=== PATIENT | male | born 1960 | race African-American/Black ===

== ENCOUNTER 2016-05-31 08:21 | Observation (INO) | payer OTHER ==
[2016-05-31] MEDS ORDERED: INSULIN REGULAR 100 UNIT/ML VIAL IV STA (08:34)
[2016-05-31] MEDS ORDERED: SODIUM CHLORIDE 0.9% 500 ML IV STA (08:35)
[2016-05-31] MEDS ORDERED: MAG HYDROX/AL HYDROX/SIMETH 30 ML, HYOSCYAMINE ELIXIR 10 ML, CIMETIDINE HCL 300 MG, LID... PO STA ×4 (08:54)
[2016-05-31] MEDS ORDERED: METOCLOPRAMIDE 5 MG/ML 2 ML VIAL IVP STA ×2 (08:59→12:10)
--- NOTE | 2016-05-31 08:59 | ED ---
Recheck HPI - General Chief Complaint: Recheck/Abnormal Lab/Rx Stated Complaint: hyperglycemia Time Seen by Provider: 05/31/16 08:33 Source: EMS, RN notes reviewed Mode of arrival: EMS Limitations: no limitations - History of Present Illness Initial Comments: This patient is a 56-year-old man who presents with a number of complaints, that basically started with him not being able to obtain his diabetes medication. He states he went to the pharmacy to obtain refills and was told that he could not have these before they were approved by his retirement actuary. Patient states that then starting Friday he began having a couple of episodes of vomiting a day, and this was followed by some burning epigastric pain. He also complains of polyuria and polydipsia. He presents to have his blood sugar addressed. MD Complaint: other (High blood sugar) Onset/Timin -: days(s) Associated Symptoms: nausea, abdominal pain - Related Data Home Medications Medication Instructions Recorded Confirmed Dicyclomine [Bentyl] 20 mg PO QID PRN 03/08/16 05/31/16 Insulin Aspart [NovoLOG] See Protocol SQ AC-TID 03/20/16 05/31/16 Famotidine [Pepcid] 20 mg PO DAILY 04/25/16 05/31/16 Lisinopril [Zestril] 20 mg PO DAILY 04/25/16 05/31/16 Previous Rx's Medication Instructions Recorded Insulin Glargine [Lantus] 25 unit SQ QAM #0 11/06/15 Omeprazole [PriLOSEC] 40 mg PO AC-BRKFST #14 capsule. 03/26/16 Allergies Allergy/AdvReac Type Severity Reaction Status Date / Time No Known Allergies Allergy Verified 05/31/16 09:20 Review of Systems ROS Statement: Those systems with pertinent positive or pertinent negative responses have been documented in the HPI. ROS Other: All systems not noted in ROS Statement are negative. Constitutional: Denies: fever, chills, weakness Respiratory: Denies: cough, dyspnea Cardiovascular: Denies: chest pain, palpitations, orthopnea, edema, syncope Endocrine: Reports: fatigue, polydipsia, polyuria Gastrointestinal: Reports: as per HPI, abdominal pain, nausea, vomiting. Denies : diarrhea, constipation, hematemesis, melena, hematochezia Genitourinary: Denies: dysuria, hematuria Musculoskeletal: Denies: back pain Skin: Denies: rash Neurological: Denies: headache, weakness, numbness Past Medical History Past Medical History: Heart Failure, Diabetes Mellitus, Hypertension, Pneumonia , Rheumatoid Arthritis (RA) Additional Past Medical History / Comment(s): IDDM type I poorly controlled, diabetic gastroparesis, bilateral feet peripheral neuropathy, blood behind both eyes, peptic ulcer disease/duodenal ulcer/gastritis with erosions, previous hospitalization for pulmonary edema and bilateral pleural effusion and subsequent evaluation showed a preserved LV function with an ejection fraction of around 50%, normocytic chronic anemia, rheumatoid arthritis, DJD, chronic back pain, osteoarthritis-generalized, eczema, psoriasis, ear infections, hx of cocaine abuse and alcohol abuse. History of Any Multi-Drug Resistant Organisms: MRSA Date of last positivie culture/infection: 2007 MDRO Source:: pustual/boil on back of neck Past Surgical History: Adenoidectomy, Tonsillectomy Additional Past Surgical History / Comment(s): colonoscopy 2008, EGD, pt stated" lt great toe amp, and part of 2nd toe". Past Anesthesia/Blood Transfusion Reactions: No Reported Reaction Past Psychological History: No Psychological Hx Reported Additional Psychological History / Comment(s): PT STATED CURRENTLY homeless stated"[facility] . He is independent. He uses no assistive device. Smoking Status: Never smoker Past Alcohol Use History: Heavy Additional Past Alcohol Use History / Comment(s): PT STATED DRINKS OCC BUT LESS THAN 14 PER WEEK Past Drug Use History: None Reported Additional Drug Use History / Comment(s): PT DENIES ANY DRUG USE IN AT LEAST 7- 8 YEARS. - Past Family History Father Family Medical History: Diabetes Mellitus, Hypertension Additional Family Medical History / Comment(s): father 2 months ago Mother Additional Family Medical History / Comment(s): pyschiatric issues. She is 76 yrs old. General Exam Limitations: no limitations General appearance: alert, in no apparent distress Head exam: Present: atraumatic, normocephalic Eye exam: Present: normal appearance. Absent: scleral icterus, conjunctival injection ENT exam: Present: mucous membranes dry Neck exam: Present: normal inspection, full ROM Respiratory exam: Present: normal lung sounds bilaterally. Absent: respiratory distress, wheezes, rales, rhonchi, stridor Cardiovascular Exam: Present: regular rate, normal rhythm, normal heart sounds. Absent: systolic murmur, diastolic murmur, rubs, gallop GI/Abdominal exam: Present: soft, tenderness (Mild epigastric tenderness). Absent: distended, guarding, rebound, rigid, mass, pulsatile mass, hernia Extremities exam: Present: normal inspection, normal capillary refill. Absent: pedal edema, calf tenderness Back exam: Present: normal inspection. Absent: CVA tenderness (R), CVA tenderness (L) Neurological exam: Present: alert Skin exam: Present: warm, dry, intact, normal color. Absent: rash, cyanosis, diaphoretic, erythema, petechiae, pallor, mottled Course Vital Signs 05/31/16 05/31/16 05/31/16 08:27 13:20 14:48 Temperature 97.7 F Pulse Rate 97 90 86 Respiratory 18 18 18 Rate Blood Pressure 173/88 177/75 137/60 O2 Sat by Pulse 100 99 100 Oximetry 05/31/16 05/31/16 05/31/16 15:47 16:30 16:45 Temperature Pulse Rate 98 95 98 Respiratory 24 22 18 Rate Blood Pressure 209/100 196/91 199/98 O2 Sat by Pulse 100 100 100 Oximetry 05/31/16 17:15 Temperature 98.0 F Pulse Rate 99 Respiratory 18 Rate Blood Pressure 197/95 O2 Sat by Pulse 100 Oximetry Procedures - Central Line Placement Right SC Consent Obtained: verbal consent, emergent situation Time Out Performed: Yes Patient Placed on Monitor/Pulse Ox: Yes Prep: mask, gown, gloves Central Line Prep: Chlorhexidine scrub, sterile drapes applied Local Anesthesia Used: Lidocaine 1% Central Line Lumen Inserted: triple Bloods Obtained for Lab: Yes Central Line Position: good blood return, all ports aspirated, flushed, capped, sutured in place with 2-0 silk Dressing Applied: Tegaderm Post Procedure X-Ray: tip of catheter in good position Patient Tolerated Procedure: well, no complications Complications: none Medical Decision Making - Lab Data Result diagrams: 05/31/16 09:50 05/31/16 14:26 Lab Results 05/31/16 05/31/16 05/31/16 Range/Units 08:31 09:50 09:50 WBC 7.8 (3.8-10.6) k/uL RBC 4.90 (4.30-5.90) m/uL Hgb 15.1 (13.0-17.5) gm/dL Hct 47.0 (39.0-53.0) % MCV 96.0 (80.0-100.0) fL MCH 30.8 (25.0-35.0) pg MCHC 32.0 (31.0-37.0) g/dL RDW 13.9 (11.5-15.5) % Plt Count 205 (150-450) k/uL Neutrophils % 72 % Lymphocytes % 19 % Monocytes % 6 % Eosinophils % 1 % Basophils % 1 % Neutrophils # 5.6 (1.3-7.7) k/uL Lymphocytes # 1.4 (1.0-4.8) k/uL Monocytes # 0.4 (0-1.0) k/uL Eosinophils # 0.1 (0-0.7) k/uL Basophils # 0.1 (0-0.2) k/uL Sodium (137-145) mmol/L Potassium (3.5-5.1) mmol/L Chloride (98-107) mmol/L Carbon Dioxide (22-30) mmol/L Anion Gap mmol/L BUN (9-20) mg/dL Creatinine (0.66-1.25) mg/dL Est GFR (MDRD) Af Amer (>60 ml/min/1.73 sqM) Est GFR (MDRD) Non-Af (>60 ml/min/1.73 sqM) Glucose (74-99) mg/dL POC Glucose (mg/dL) 480 H (75-99) mg/dL POC Glu Nursing Informatics Analyst ID Harry Xie Calcium (8.4-10.2) mg/dL Urine Color Urine Appearance (Clear) Urine pH (5.0-8.0) Ur Specific [place] (1.001-1.035) Urine Protein (Negative) Urine Glucose (UA) (Negative) Urine Ketones (Negative) Urine Blood (Negative) Urine Nitrate (Negative) Urine Bilirubin (Negative) Urine Urobilinogen (<2.0) mg/dL Ur Leukocyte Esterase (Negative) Serum Alcohol mg/dL Acetone, Qual Positive (Negative) 05/31/16 05/31/16 05/31/16 Range/Units 09:50 10:33 14:26 WBC (3.8-10.6) k/uL RBC (4.30-5.90) m/uL Hgb (13.0-17.5) gm/dL Hct (39.0-53.0) % MCV (80.0-100.0) fL MCH (25.0-35.0) pg MCHC (31.0-37.0) g/dL RDW (11.5-15.5) % Plt Count (150-450) k/uL Neutrophils % % Lymphocytes % % Monocytes % % Eosinophils % % Basophils % % Neutrophils # (1.3-7.7) k/uL Lymphocytes # (1.0-4.8) k/uL Monocytes # (0-1.0) k/uL Eosinophils # (0-0.7) k/uL Basophils # (0-0.2) k/uL Sodium 137 (137-145) mmol/L Potassium 5.3 H (3.5-5.1) mmol/L Chloride 94 L (98-107) mmol/L Carbon Dioxide 8 L* (22-30) mmol/L Anion Gap 35 mmol/L BUN 38 H (9-20) mg/dL Creatinine 1.69 H (0.66-1.25) mg/dL Est GFR (MDRD) Af Amer 51 (>60 ml/min/1.73 sqM) Est GFR (MDRD) Non-Af 42 (>60 ml/min/1.73 sqM) Glucose 590 H* (74-99) mg/dL POC Glucose (mg/dL) 464 H (75-99) mg/dL POC Glu Nursing Informatics Analyst ID Jeannie Perea Calcium 10.2 (8.4-10.2) mg/dL Urine Color Light Yellow Urine Appearance Clear (Clear) Urine pH 5.5 (5.0-8.0) Ur Specific [place] 1.017 (1.001-1.035) Urine Protein Negative (Negative) Urine Glucose (UA) 4+ H (Negative) Urine Ketones 4+ H (Negative) Urine Blood Negative (Negative) Urine Nitrate Negative (Negative) Urine Bilirubin Negative (Negative) Urine Urobilinogen <2.0 (<2.0) mg/dL Ur Leukocyte Esterase Negative (Negative) Serum Alcohol <10 mg/dL Acetone, Qual (Negative) 01/13/17 Range/Units 14:43 WBC (3.8-10.6) k/uL RBC (4.30-5.90) m/uL Hgb (13.0-17.5) gm/dL Hct (39.0-53.0) % MCV (80.0-100.0) fL MCH (25.0-35.0) pg MCHC (31.0-37.0) g/dL RDW (11.5-15.5) % Plt Count (150-450) k/uL Neutrophils % % Lymphocytes % % Monocytes % % Eosinophils % % Basophils % % Neutrophils # (1.3-7.7) k/uL Lymphocytes # (1.0-4.8) k/uL Monocytes # (0-1.0) k/uL Eosinophils # (0-0.7) k/uL Basophils # (0-0.2) k/uL Sodium (137-145) mmol/L Potassium (3.5-5.1) mmol/L Chloride (98-107) mmol/L Carbon Dioxide (22-30) mmol/L Anion Gap mmol/L BUN (9-20) mg/dL Creatinine (0.66-1.25) mg/dL Est GFR (MDRD) Af Amer (>60 ml/min/1.73 sqM) Est GFR (MDRD) Non-Af (>60 ml/min/1.73 sqM) Glucose (74-99) mg/dL POC Glucose (mg/dL) 536 H (75-99) mg/dL POC Glu Nursing Informatics Analyst ID Jeanette Weathers Calcium (8.4-10.2) mg/dL Urine Color Urine Appearance (Clear) Urine pH (5.0-8.0) Ur Specific [place] (1.001-1.035) Urine Protein (Negative) Urine Glucose (UA) (Negative) Urine Ketones (Negative) Urine Blood (Negative) Urine Nitrate (Negative) Urine Bilirubin (Negative) Urine Urobilinogen (<2.0) mg/dL Ur Leukocyte Esterase (Negative) Serum Alcohol mg/dL Acetone, Qual (Negative) - EKG Data -: EKG Interpreted by Vt EKG shows normal: sinus rhythm (Rate 94 bpm), axis (Normal), intervals (Normal) Rate: normal Interpretation: [facility] Critical Care Time Critical Care Time: Yes (45 minutes) Disposition Clinical Impression: DKA (diabetic ketoacidoses) Disposition: ADMITTED IP TO THIS HOSP Condition: Serious
--- NOTE | 2016-05-31 10:21 | XR ---
EXAMINATION TYPE: XR chest 1V portable DATE OF EXAM: 05/31/2016 10:15 AM Comparison: 03/08/2016 Clinical History: 56-year-old male with cough Findings: Heart is upper limits of normal in size. Aortopulmonary vasculature within normal limits. Old healed right posterior rib fracture deformities. No consolidation or pleural effusion seen. Impression: No acute cardiopulmonary process. Old healed right sided rib fracture deformities.
[2016-05-31 10:28] LABS: Appearance,Urine Clear (Clear); Bilirubin,Urine Negative (Negative); Glucose,Urine (UA) 4+ (Negative); Leukocyte Esterase,Urine Negative (Negative); Nitrite,Urine Negative (Negative); PH, Urine 5.5 (5.0-8.0); Protein,Urine Negative (Negative); Specific Gravity,Urine 1.017 (1.001-1.035); UA Billing (MACRO vs. MICRO) CHEM; Urobilinogen,Urine <2.0 mg/dL (<2.0)
[2016-05-31 10:29] LABS: Basophils # (A) 0.1 k/uL (0-0.2); Basophils % (A) 1 %; CH 31.5; Eosinophils # (A) 0.1 k/uL (0-0.7); Eosinophils % (A) 1 %; HDW 2.79; HGB 15.1 gm/dL (13.0-17.5); Luc # (Auto) 0.16; Luc % (Auto) 2; Lymphocytes # (A) 1.4 k/uL (1.0-4.8); Lymphocytes % (A) 19 %; MCH 30.8 pg (25.0-35.0); Monocytes # (A) 0.4 k/uL (0-1.0); Monocytes % (A) 6 %; Neutrophils # (A) 5.6 k/uL (1.3-7.7); Neutrophils % (A) 72 %; RDW 13.9 % (11.5-15.5); WBC 7.8 k/uL (3.8-10.6); WBC (Perox) 7.33
[2016-05-31 10:34] LABS: Glucose,Whole Blood 464 mg/dL (75-99)
[2016-05-31 10:41] LABS: Ketones,Urine 4+ (Negative)
[2016-05-31] MEDS ORDERED: INSULIN REGULAR 100 UNIT in SODIUM CHLORIDE 0.9% 100 ML IV ONE (11:30)
[2016-05-31] MEDS ORDERED: SODIUM CHLORIDE 0.9% 1,000 ML IV ONE ×2 (11:30→15:34)
[2016-05-31] MEDS ORDERED: MORPHINE SULFATE 4 MG/ML SYRINGE IV STA (12:10)
--- NOTE | 2016-05-31 14:39 | XR ---
EXAMINATION TYPE: XR chest 1V confirm line plcmt DATE OF EXAM: 05/31/2016 2:34 PM COMPARISON: Earlier today HISTORY: 56-year-old male right central line insertion, nausea and vomiting. TECHNIQUE: Single frontal view of the chest is obtained. FINDINGS: Heart is normal size. Lungs and pleural spaces appear clear. Right subclavian CVC tip is at the lower SVC. Old rib fracture deformities are redemonstrated posteriorly on the right and posterolaterally o n the left. IMPRESSION: Right subclavian CVC tip in the lower SVC. Otherwise, stable exam without acute process.
[2016-05-31 14:45] LABS: Glucose,Whole Blood 536 mg/dL (75-99)
[2016-05-31] MEDS ORDERED: INSULIN REGULAR 100 UNIT/ML VIAL IV ONE (14:52)
[2016-05-31 14:58] LABS: Alcohol <10 mg/dL; Blood Urea Nitrogen 38 mg/dL (9-20); Calcium 10.2 mg/dL (8.4-10.2); Chloride 94 mmol/L (98-107); Non-African American GFR(MDRD) 42 (>60 ml/min/1.73 sqM); Potassium 5.3 mmol/L (3.5-5.1); Sodium 137 mmol/L (137-145)
[2016-05-31 15:05] LABS: Anion Gap 35 mmol/L
[2016-05-31 15:12] LABS: Carbon Dioxide 8 mmol/L (22-30); Glucose 590 mg/dL (74-99)
[2016-05-31] MEDS ORDERED: DICYCLOMINE 20 MG TAB PO PRN (15:35)
[2016-05-31] MEDS ORDERED: METOCLOPRAMIDE 5 MG/ML 2 ML VIAL IVP PRN (15:36)
[2016-05-31 15:42] LABS: Glucose,Whole Blood 486 mg/dL (75-99)
[2016-05-31] MEDS ORDERED: SODIUM CHLORIDE 0.9% 1,000 ML IV SCH (15:45)
[2016-05-31] MEDS ORDERED: ENALAPRILAT 1.25 MG/ML 1 ML VIAL IVP STA (15:49)
[2016-05-31 16:19] LABS: Glucose,Whole Blood 480 mg/dL (75-99)
[2016-05-31] MEDS ORDERED: cloNIDine HCL 0.2 MG TAB PO STA (17:15)
[2016-05-31 17:27] LABS: Glucose,Whole Blood 366 mg/dL (75-99)
[2016-05-31 17:54] LABS: Appearance,Urine Clear (Clear); Bacteria,Urine Rare /hpf; Bilirubin,Urine Negative (Negative); Glucose,Urine (UA) 4+ (Negative); Leukocyte Esterase,Urine Negative (Negative); Mucus,Urine Rare /hpf; Nitrite,Urine Negative (Negative); PH, Urine 5.5 (5.0-8.0); Particle Count 213; Protein,Urine Trace (Negative); Specific Gravity,Urine 1.012 (1.001-1.035); UA Billing (MACRO vs. MICRO) MICRO; Urobilinogen,Urine <2.0 mg/dL (<2.0); WBC,Urine <1 /hpf (0-5)
[2016-05-31 17:58] LABS: Ketones,Urine 4+ (Negative)
[2016-05-31 18:53] LABS: Glucose,Whole Blood 375 mg/dL (75-99)
[2016-05-31 19:05] LABS: Phosphorous 4.6 mg/dL (2.5-4.5); Potassium 5.4 mmol/L (3.5-5.1)
[2016-05-31] MEDS: D5-0.45% NACL WITH KCL 20MEQ/L 1,000 ML IV SCH (19:55)
[2016-05-31] MEDS: INSULIN REGULAR 100 UNIT in SODIUM CHLORIDE 0.9% 100 ML IV SCH (19:58)
[2016-05-31 20:04] LABS: Glucose,Whole Blood 217 mg/dL (75-99)
[2016-05-31 21:04] LABS: Glucose,Whole Blood 218 mg/dL (75-99)
[2016-05-31] MEDS ORDERED: hydrALAZINE HCL 20 MG/ML 1 ML VIAL IVP PRN (21:10)
[2016-05-31] MEDS: HYDROmorphone 1 MG/ML 1 ML SYRINGE IVP PRN (22:22)
[2016-05-31] MEDS: PANTOPRAZOLE 40 MG/10 ML VIAL IVP SCH (22:22)
[2016-05-31] MEDS: SUCRALFATE 1 GM TAB PO SCH (22:23)
[2016-05-31 22:26] LABS: Glucose,Whole Blood 178 mg/dL (75-99)
[2016-05-31 22:46] LABS: Amylase 111 U/L (30-110); Anion Gap 15 mmol/L; Blood Urea Nitrogen 33 mg/dL (9-20); Carbon Dioxide 21 mmol/L (22-30); Chloride 106 mmol/L (98-107); Glucose 174 mg/dL (74-99); Non-African American GFR(MDRD) >60 (>60 ml/min/1.73 sqM); Potassium 4.3 mmol/L (3.5-5.1); Sodium 142 mmol/L (137-145)
[2016-05-31 23:37] LABS: Glucose,Whole Blood 137 mg/dL (75-99)
[2016-06-01] MEDS: SODIUM CHLORIDE 0.9% 1,000 ML IV SCH ×4 (00:56→21:31)
[2016-06-01] MEDS: D5-0.45% NACL WITH KCL 20MEQ/L 1,000 ML IV SCH ×4 (00:56→16:35)
[2016-06-01 00:58] LABS: Glucose,Whole Blood 147 mg/dL (75-99)
[2016-06-01 02:09] LABS: Glucose,Whole Blood 139 mg/dL (75-99)
[2016-06-01] MEDS: HYDROmorphone 1 MG/ML 1 ML SYRINGE IVP PRN ×3 (02:11→15:47)
[2016-06-01 03:08] LABS: Glucose,Whole Blood 134 mg/dL (75-99)
[2016-06-01 04:28] LABS: Glucose,Whole Blood 136 mg/dL (75-99)
[2016-06-01 04:45] LABS: CHCM 34.5; HCT 39.5 % (39.0-53.0); HDW 2.72; MCH 30.7 pg (25.0-35.0); MCHC 32.8 g/dL (31.0-37.0); MCV 93.3 fL (80.0-100.0); Mean Platelet Volume 7.8; RBC 4.23 m/uL (4.30-5.90); RDW 14.4 % (11.5-15.5); WBC 11.6 k/uL (3.8-10.6)
[2016-06-01 04:55] LABS: ALT 40 U/L (21-72); AST 23 U/L (17-59); Alkaline Phosphatase 103 U/L (38-126); Anion Gap 11 mmol/L; Blood Urea Nitrogen 29 mg/dL (9-20); Calcium 8.4 mg/dL (8.4-10.2); Carbon Dioxide 22 mmol/L (22-30); Chloride 106 mmol/L (98-107); Glucose 157 mg/dL (74-99); Non-African American GFR(MDRD) >60 (>60 ml/min/1.73 sqM); Phosphorous 3.1 mg/dL (2.5-4.5); Potassium 4.5 mmol/L (3.5-5.1); Sodium 139 mmol/L (137-145); Total Bilirubin 0.7 mg/dL (0.2-1.3); Total Protein 6.6 g/dL (6.3-8.2)
[2016-06-01 06:06] LABS: Glucose,Whole Blood 172 mg/dL (75-99)
[2016-06-01 07:12] LABS: Glucose,Whole Blood 216 mg/dL (75-99)
[2016-06-01] MEDS ORDERED: PANTOPRAZOLE 40 MG TABLET PO SCH (07:30)
[2016-06-01 08:07] LABS: Glucose,Whole Blood 220 mg/dL (75-99)
[2016-06-01] MEDS: LISINOPRIL 20 MG TAB PO SCH (08:22)
[2016-06-01] MEDS: FAMOTIDINE 20 MG TAB PO SCH (08:22)
[2016-06-01] MEDS: SUCRALFATE 1 GM TAB PO SCH ×4 (08:22→21:32)
[2016-06-01] MEDS: PANTOPRAZOLE 40 MG/10 ML VIAL IVP SCH (08:22)
[2016-06-01] MEDS: INSULIN REGULAR 100 UNIT in SODIUM CHLORIDE 0.9% 100 ML IV SCH (08:25)
[2016-06-01 09:05] LABS: Glucose,Whole Blood 267 mg/dL (75-99)
[2016-06-01 10:07] LABS: Anion Gap 13 mmol/L; Blood Urea Nitrogen 26 mg/dL (9-20); Calcium 8.4 mg/dL (8.4-10.2); Carbon Dioxide 19 mmol/L (22-30); Chloride 103 mmol/L (98-107); Glucose 313 mg/dL (74-99); Non-African American GFR(MDRD) >60 (>60 ml/min/1.73 sqM); Potassium 4.6 mmol/L (3.5-5.1); Sodium 135 mmol/L (137-145)
[2016-06-01 10:25] LABS: Glucose,Whole Blood 358 mg/dL (75-99)
[2016-06-01 11:20] LABS: Glucose,Whole Blood 292 mg/dL (75-99)
[2016-06-01 11:27] LABS: Hemoglobin A1C 10.8 % (4.2-6.1)
[2016-06-01 12:07] LABS: Glucose,Whole Blood 297 mg/dL (75-99)
[2016-06-01 12:54] LABS: Anion Gap 12 mmol/L; Blood Urea Nitrogen 24 mg/dL (9-20); Calcium 8.9 mg/dL (8.4-10.2); Carbon Dioxide 21 mmol/L (22-30); Chloride 101 mmol/L (98-107); Glucose 293 mg/dL (74-99); Non-African American GFR(MDRD) >60 (>60 ml/min/1.73 sqM); Potassium 4.6 mmol/L (3.5-5.1); Sodium 134 mmol/L (137-145)
[2016-06-01 13:13] LABS: Glucose,Whole Blood 301 mg/dL (75-99)
--- NOTE | 2016-06-01 13:28 | HP ---
DATE OF ADMISSION: CHIEF COMPLAINT: DKA. HISTORY OF PRESENT ILLNESS: This is another admission for this 56-year-old male male who is extremely noncompliant. He has been an insulin-dependent diabetic for years and never has taken care of himself. He presented to the emergency room this time with blood sugar of around 900 and he was in DKA. He has not been taking any insulin. He has not been on any medication. He has had excessive thirst, nausea, frequent urination and blurred vision. REVIEW OF SYSTEMS: He has had no other symptoms otherwise. He has had no fever, chills, chest pain, abdominal pain, etc. Past medical history, family history and personal and social histories are otherwise unchanged. He is not on any medication. He is not allergic to any. The only surgery he has had is removal of the left first and second toes. The remainder of his history is unremarkable and he does not smoke. PHYSICAL EXAM: Blood pressure 136/92 with a pulse 106, respirations 38. He is afebrile. GENERAL: He appeared to be dehydrated. Head, ears, eyes, nose, mouth, and throat were otherwise normal. Ears clear. Nose, mouth, and throat were normal. Neck veins were not distended. Thyroid was not enlarged. Chest demonstrated tachycardia and there are no murmurs or extra sounds. The abdomen is soft, nontender without visceromegaly or masses. Bowel sounds are present. Extremities are normal except for the absence of the left first and second toes. IMPRESSION: Diabetic ketoacidosis. PLAN: Intravenous fluids and DKA protocol.
--- NOTE | 2016-06-01 13:47 | PN ---
DATE OF SERVICE: 06/01/2016 CHIEF COMPLAINT: DKA. HISTORY OF PRESENT ILLNESS: This gentleman is doing well and he is wake and alert. PHYSICAL EXAM: He still dehydrated. Chest is clear. Cardiac exam is normal. ABDOMEN: Soft, nontender. IMPRESSION: Diabetic ketoacidosis. PLAN: Continue with insulin management and rehydration.
[2016-06-01 14:02] LABS: Glucose,Whole Blood 231 mg/dL (75-99)
[2016-06-01 15:14] LABS: Glucose,Whole Blood 224 mg/dL (75-99)
[2016-06-01 15:30] VITALS: BMI 26.4
[2016-06-01 16:17] LABS: Glucose,Whole Blood 206 mg/dL (75-99)
[2016-06-01 16:50] LABS: Anion Gap 9 mmol/L; Blood Urea Nitrogen 21 mg/dL (9-20); Calcium 8.6 mg/dL (8.4-10.2); Carbon Dioxide 23 mmol/L (22-30); Chloride 102 mmol/L (98-107); Glucose 211 mg/dL (74-99); Non-African American GFR(MDRD) >60 (>60 ml/min/1.73 sqM); Potassium 4.4 mmol/L (3.5-5.1); Sodium 134 mmol/L (137-145)
[2016-06-01 17:39] LABS: Glucose,Whole Blood 216 mg/dL (75-99)
[2016-06-01] MEDS ORDERED: INSULIN GLARGINE 100 UNIT/ML 10 ML VIAL SQ STA (18:07)
--- NOTE | 2016-06-01 19:48 | CONS ---
DATE OF CONSULTATION: 06/01/2016 REASON FOR CONSULTATION: Critical care management. HISTORY OF PRESENT ILLNESS: Mr. Rigo Krueger is a 56-year-old male who was seen, evaluated and examined on the [facility]. Patient originally being planned for placement in ICU for diabetic ketoacidosis, uncontrolled sugar and hyperglycemia. Patient has not been taking his medications for the last 5 to 6 days for unclear reasons. He ran out of it and unable to renew them. With those problems and a very high sugar, patient presented into the emergency department where he was seen, evaluated, examined and subsequently admitted to the hospital. For the last 24 to 48 hours, he has some nausea and emesis and burning epigastric pain. Past medical history is significant for: 1. Diabetes mellitus, insulin-dependent. 2. GERD. 3. History of congestive heart failure. 4. Rheumatoid arthritis. 5. History of prior pneumonia. 6. Hypertension, hypertensive cardiovascular disease. 7. History of gastroparesis. 8. Peripheral neuropathy. 9. Peptic ulcer disease. 10. History of pulmonary edema. 11. Pleural effusion. 12. Some component of systolic heart failure, ejection fraction around 50%. PAST SURGICAL HISTORY: Adenoidectomy, Tonsillectomy. History of colonoscopy, EGD, history of left great toe amputation and part of the second toe. Due to diabetic ulcer. left great toe amputation and part of the second toe due to diabetic ulcer. ALLERGIES: No known drug allergy. Medications include: 1. Lantus 25 units in the morning. 2. Prilosec 40 mg daily. 3. Zestril 20 mg daily. 4. Pepcid 20 mg daily. 5. Sliding scale insulin. 6. Bentyl. REVIEW OF SYSTEMS: [place]: Denies any seizure activity, loss of consciousness or hemiparesis. CARDIORESPIRATORY: Otherwise unremarkable and noncontributory. GI/: Unremarkable. Musculoskeletal/dermatological, neurological: Unremarkable and noncontributory except as dictated above. Current medications include ( ) patient diabetic ketoacidosis better under control. Anion gap has been closed now, would recommend to discontinue insulin drip. Patient to be started on 1800 DKA calorie diet. Other laboratory data reviewed. On examination last set of vitals include blood pressure is 134/72, respiratory rate 16, pulse 75, temperature 98, saturating 100% on room air. HEENT: Atraumatic, normocephalic. Pharynx is clear without exudate. NECK: Supple without any lymphadenopathy, jugular venous distention or carotid bruit. LUNGS: Bilateral good air entry is present without significant rales, rhonchi, or rub. HEART: Regular rate and rhythm. S1 and S2 audible. ABDOMEN: Soft. No rebound or rigidity. EXTREMITIES: +1 peripheral pulses. NEUROLOGICAL EXAMINATION: Otherwise, awake and alert. Chest x-ray old healed right-sided rib fractures are seen. EKG performed in the hospital revealed LVH like pattern. Normal sinus rhythm, otherwise fairly unremarkable. Other laboratory data reviewed. White cell count is 11,600, hemoglobin 13 and 39, platelet count 245,000. Sodium 130, potassium 4.4, BUN and creatinine 21 and 1.15 down from 33 and 1.2. Glucose is 174. Phosphorus 2.0, up to 3.1 now. A urinalysis a few glucose ketones were seen, acetone in the blood is positive. IMPRESSION: 1. Diabetic ketoacidosis 2. Acute renal failure related to vascular depletion and dehydration. 3. Uncontrolled diabetes and hyperglycemia ( ) control diabetes with hemoglobin A1c of 10.8. 4. History of hypertension, hypertensive cardiovascular disease. 5. Chronic pain syndrome. Plan and recommendation is to continue ( ) patient is to be monitored off ( ) insulin drip. Will resume home medication. Will give 25 units of Lantus now and resume it from tomorrow morning and continue ( ) the morning as he was taking before. We will use 5 units of insulin with meals as well along with sliding scale insulin. Continue gentle rehydration. Follow clinical course closely. Patient can be stepdown from the ICU to the selective care as planned.
[2016-06-01] MEDS ORDERED: INSULIN GLARGINE 100 UNIT/ML 10 ML VIAL SQ ONE (20:30)
[2016-06-01 20:58] LABS: Glucose,Whole Blood 281 mg/dL (75-99)
[2016-06-01] MEDS: QUEtiapine 100 MG TAB PO SCH (21:32)
[2016-06-01] MEDS: INSULIN LISPRO (humaLOG) 300 UNIT/3 ML VIAL SQ SCH (21:32)
[2016-06-01] MEDS: oxyCODONE-APAP 10-325MG 1 EACH TAB PO PRN (21:33)
[2016-06-02 04:10] LABS: Glucose,Whole Blood 252 mg/dL (75-99)
[2016-06-02 04:31] LABS: Basophils # (A) 0.1 k/uL (0-0.2); Basophils % (A) 1 %; CH 31.4; CHCM 33.1; Eosinophils # (A) 0.2 k/uL (0-0.7); Eosinophils % (A) 2 %; HCT 40.9 % (39.0-53.0); HDW 2.65; HGB 13.2 gm/dL (13.0-17.5); Luc # (Auto) 0.27; Luc % (Auto) 4; Lymphocytes # (A) 2.1 k/uL (1.0-4.8); Lymphocytes % (A) 28 %; MCH 30.7 pg (25.0-35.0); MCHC 32.2 g/dL (31.0-37.0); MCV 95.4 fL (80.0-100.0); Monocytes # (A) 0.4 k/uL (0-1.0); Monocytes % (A) 6 %; Neutrophils # (A) 4.5 k/uL (1.3-7.7); Neutrophils % (A) 60 %; RBC 4.29 m/uL (4.30-5.90); RDW 14.7 % (11.5-15.5); WBC 7.5 k/uL (3.8-10.6); WBC (Perox) 7.84
[2016-06-02 04:40] LABS: Anion Gap 10 mmol/L; Blood Urea Nitrogen 18 mg/dL (9-20); Carbon Dioxide 22 mmol/L (22-30); Chloride 105 mmol/L (98-107); Glucose 303 mg/dL (74-99); Non-African American GFR(MDRD) 60 (>60 ml/min/1.73 sqM); Sodium 137 mmol/L (137-145)
[2016-06-02 04:44] LABS: ABG Base Excess -3.9 mmol/L; ABG HCO3 21 mmol/L (21-25); ABG PCO2 38 mmHg (35-45); ABG PH 7.36 (7.35-7.45); ABG PO2 60 mmHg (83-108); ABG TCO2 22 mmol/L (19-24)
[2016-06-02 06:16] LABS: Glucose,Whole Blood 262 mg/dL (75-99)
[2016-06-02] MEDS: INSULIN LISPRO (humaLOG) 300 UNIT/3 ML VIAL SQ SCH ×7 (07:20→20:49)
[2016-06-02] MEDS ORDERED: INSULIN GLARGINE 100 UNIT/ML 10 ML VIAL SQ SCH ×2 (09:00→21:00)
[2016-06-02] MEDS: FAMOTIDINE 20 MG TAB PO SCH (09:16)
[2016-06-02] MEDS: PANTOPRAZOLE 40 MG/10 ML VIAL IVP SCH (09:16)
[2016-06-02] MEDS: LISINOPRIL 20 MG TAB PO SCH (09:16)
[2016-06-02] MEDS: SUCRALFATE 1 GM TAB PO SCH ×4 (09:16→19:57)
[2016-06-02] MEDS: oxyCODONE-APAP 10-325MG 1 EACH TAB PO PRN ×4 (09:26→23:53)
[2016-06-02 11:36] LABS: Glucose,Whole Blood 177 mg/dL (75-99)
[2016-06-02 16:30] LABS: Glucose,Whole Blood 188 mg/dL (75-99)
[2016-06-02] MEDS: QUEtiapine 100 MG TAB PO SCH (19:57)
[2016-06-02] MEDS: SODIUM CHLORIDE 0.9% 1,000 ML IV SCH (19:57)
[2016-06-02 20:21] LABS: Glucose,Whole Blood 284 mg/dL (75-99)
--- NOTE | 2016-06-02 22:11 | PN ---
DATE OF SERVICE: 06/02/2016 CHIEF COMPLAINT: Uncontrolled diabetes, dehydration and diabetic ketoacidosis. HISTORY OF PRESENT ILLNESS: This gentleman is doing fairly well and sugars are under better control. He is complaining of a lot of indigestion. He was started on a PPI. PHYSICAL EXAMINATION: CHEST: Clear. CARDIAC: Normal. ABDOMEN: Soft, a little bit tender in the epigastrium. IMPRESSION: 1. Gastritis. 2. Diabetic ketoacidosis. 3. Dehydration. PLAN: Probably home in the next day or 2.
[2016-06-03] MEDS: oxyCODONE-APAP 10-325MG 1 EACH TAB PO PRN ×3 (04:39→12:39)
[2016-06-03 05:52] LABS: Glucose,Whole Blood 269 mg/dL (75-99)
[2016-06-03] MEDS: INSULIN LISPRO (humaLOG) 300 UNIT/3 ML VIAL SQ SCH ×4 (07:12→12:13)
[2016-06-03] MEDS: SUCRALFATE 1 GM TAB PO SCH ×2 (08:22→12:13)
[2016-06-03] MEDS: LISINOPRIL 20 MG TAB PO SCH (08:22)
[2016-06-03] MEDS: FAMOTIDINE 20 MG TAB PO SCH (08:22)
[2016-06-03] MEDS: PANTOPRAZOLE 40 MG/10 ML VIAL IVP SCH (08:23)
[2016-06-03] MEDS ORDERED: INSULIN GLARGINE 100 UNIT/ML 10 ML VIAL SQ SCH (09:00)
[2016-06-03 10:00] VITALS: BP 156/76; PULSE 77; RESP 18; TEMP 98.4
--- NOTE | 2016-06-03 11:52 | P.DS ---
Providers Date of admission: 05/31/16 15:34 Expected date of discharge: 06/03/16 Attending physician: Gigi Wooten Consults: 05/31/16 15:39 Consult Physician Urgent Consulting Provider: Kelvin Landry Consult Reason/Comments: DKA Do you want consulting provider notified?: Already Contacted Primary care physician: Stated None Hospital Course: 56-year-old Afro-Tongan presented on the day of admission to the emergency room to be evaluated for high blood sugar nausea burning epigastric discomfort. Patient was seen in the emergency room the blood sugar was noted to be elevated around 900 and patient was in DKA. It's noted that this patient is extremely noncompliant with follow-up visits and not taking his insulin getting the prescription renewed. Patient reportedly had not been taking any insulin. He had not been on any medication. He did have episodes of relating extensive thirst nausea and frequent urination blurred vision suspect all due to noncompliance resulting in DKA patient stated he had not been able to get his diabetic medication. He stated he went to the pharmacy to obtain refills and was told that he could not have them before was approved by his meal cook. Patient stated that last Friday he started having episodes. Patient was seen in the emergency room admitted to the services of the attending. Patient was restarted on his insulin with better control. The hemoglobin A1c was noted to be 10.7. Patient was given prescriptions for his insulin. The tire cord weaver did see the patient as well. Patient was felt to be appropriate proceed with a discharge to home with the plan the patient would be seen in the PCPs office within 24 hours Impression discharge diagnosis Present on admission extreme thirst frequent urination hyperglycemia suspect due to DKA Uncontrolled type 2 diabetes suspect due to noncompliant with taking insulin stopped taking insulin in the outpatient setting History of hypertension Chronic pain syndrome with narcotic dependency Present on admission clinical dehydration Present on admission abdominal pain nausea vomiting suspect due to DKA Mild hyperkalemia The above dictated assessment and findings were discussed with dr rianna Sawyer and the plan of care have been dictated as directed. Bri Melendez nurse practitioner acting as a scribe for dr wooten Patient Condition at Discharge: Serious Plan - Discharge Summary New Discharge Prescriptions: INSULIN LISPRO (humaLOG) [humaLOG (formulary)] 5 unit SQ AC-TID #1 vial Insulin Glargine [Lantus] 30 unit SQ DAILY #1 vial Lisinopril [Zestril] 20 mg PO DAILY #30 tab Discharge Medication List Dicyclomine [Bentyl] 20 mg PO QID PRN 03/08/16 [History] Insulin Aspart [NovoLOG] See Protocol SQ AC-TID 03/20/16 [History] Omeprazole [PriLOSEC] 40 mg PO AC-BRKFST #14 capsule. 03/26/16 [Rx] Famotidine [Pepcid] 20 mg PO DAILY 04/25/16 [History] INSULIN LISPRO (humaLOG) [humaLOG (formulary)] 5 unit SQ AC-TID #1 vial [Rx] Insulin Glargine [Lantus] 30 unit SQ DAILY #1 vial 06/03/16 [Rx] Lisinopril [Zestril] 20 mg PO DAILY #30 tab 06/03/16 [Rx] Follow up Appointment(s)/Referral(s): Gigi Wooten MD [STAFF PHYSICIAN] - 1 Week None,Stated [Primary Care Provider] - 1-2 days Patient Instructions/Handouts: Pantoprazole (By mouth) Discharge Disposition: HOME SELF-CARE
[2016-06-03 12:14] LABS: Glucose,Whole Blood 385 mg/dL (75-99)
== END 2016-06-03 14:40 | disposition home or self-care (01) ==
LOC: EC 08:21 → INTOOBSV 15:34 → 6SEL 15:34
PROVIDERS: ADMIT Family Medicine; ATTEND Family Medicine
DX: E13.10 Other specified diabetes mellitus with ketoacidosis without coma (principal); F11.20 Opioid dependence, uncomplicated; N17.9 Acute kidney failure, unspecified; I50.22 Chronic systolic (congestive) heart failure; I11.0 Hypertensive heart disease with heart failure; K31.84 Gastroparesis; E87.5 Hyperkalemia; E11.43 Type 2 diabetes mellitus with diabetic autonomic (poly)neuropathy; E86.0 Dehydration; G89.4 Chronic pain syndrome; K21.9 Gastro-esophageal reflux disease without esophagitis; K29.70 Gastritis, unspecified, without bleeding; M06.9 Rheumatoid arthritis, unspecified; M19.90 Unspecified osteoarthritis, unspecified site; L40.9 Psoriasis, unspecified; M54.9 Dorsalgia, unspecified; Z79.4 Long term (current) use of insulin; Z79.899 Other long term (current) drug therapy; Z89.412 Acquired absence of left great toe; Z91.19 Patient's noncompliance with other medical treatment and regimen; Z86.14 Personal history of Methicillin resistant Staphylococcus aureus infection; Z89.422 Acquired absence of other left toe(s); Z82.49 Family history of ischemic heart disease and other diseases of the circulatory system; E11.42 Type 2 diabetes mellitus with diabetic polyneuropathy
CPT/HCPCS: 36556; 99291; 96365; 96366; 96375; 96376; 96361; 36415; 36600; 80051; 93005; 80053; 80048 ×3; 82150; 83036; 82565; 82805; 82009; 83690; 84100 ×2; 82947; 84520; 85025 ×2; 85027; 81003; 81001; 80320; 71010; G0378 ×4; J2270; J2765; J1170 ×2; C9113 ×4; 96368

== ENCOUNTER 2016-06-18 03:17 | Inpatient (IN) | payer OTHER ==
[2016-06-18] MEDS ORDERED: INSULIN REGULAR 100 UNIT/ML VIAL IV ONE (03:26)
[2016-06-18] MEDS ORDERED: SODIUM CHLORIDE 0.9% 2,000 ML IV ONE (03:26)
[2016-06-18] MEDS ORDERED: INSULIN REGULAR 100 UNIT in SODIUM CHLORIDE 0.9% 100 ML IV ONE (03:26)
--- NOTE | 2016-06-18 03:30 | ED ---
General Adult HPI - General Stated complaint: Hyperglycemia Time Seen by Provider: 06/18/16 03:20 Source: RN notes reviewed - History of Present Illness Initial comments: This is a 56-year-old male who presents to the emergency room with a past history of diabetes. Patient states she's been vomiting all day girlfriend states that he was confused at home so she brought him to the emergency department. Patient is not answering questions accurately at this time so the history cannot be trusted from him. Girlfriend states he did complain of some abdominal pain and a sore throat from the vomiting. There is been any fever that she's noticed she states she hasn't been short of breath. As far she knows there is been no injury or trauma. - Related Data Home Medications Medication Instructions Recorded Confirmed Dicyclomine [Bentyl] 20 mg PO QID PRN 03/08/16 05/31/16 Insulin Aspart [NovoLOG] See Protocol SQ AC-TID 03/20/16 05/31/16 Famotidine [Pepcid] 20 mg PO DAILY 04/25/16 05/31/16 Previous Rx's Medication Instructions Recorded Omeprazole [PriLOSEC] 40 mg PO AC-BRKFST #14 capsule. 03/26/16 INSULIN LISPRO (humaLOG) [humaLOG 5 unit SQ AC-TID #1 vial 06/03/16 (formulary)] Insulin Glargine [Lantus] 30 unit SQ DAILY #1 vial 06/03/16 Lisinopril [Zestril] 20 mg PO DAILY #30 tab 06/03/16 Allergies Allergy/AdvReac Type Severity Reaction Status Date / Time No Known Allergies Allergy Verified 06/18/16 03:56 Review of Systems ROS Statement: Those systems with pertinent positive or pertinent negative responses have been documented in the HPI. ROS Other: All systems not noted in ROS Statement are negative. Past Medical History Past Medical History: Heart Failure, Diabetes Mellitus, Hypertension, Pneumonia , Rheumatoid Arthritis (RA) Additional Past Medical History / Comment(s): IDDM type I poorly controlled, diabetic gastroparesis, bilateral feet peripheral neuropathy, blood behind both eyes, peptic ulcer disease/duodenal ulcer/gastritis with erosions, previous hospitalization for pulmonary edema and bilateral pleural effusion and subsequent evaluation showed a preserved LV function with an ejection fraction of around 50%, normocytic chronic anemia, rheumatoid arthritis, DJD, chronic back pain, osteoarthritis-generalized, eczema, psoriasis, ear infections, hx of cocaine abuse and alcohol abuse. History of Any Multi-Drug Resistant Organisms: MRSA Date of last positivie culture/infection: 2007 MDRO Source:: pustual/boil on back of neck Past Surgical History: Adenoidectomy, Tonsillectomy Additional Past Surgical History / Comment(s): colonoscopy 2008, EGD, pt stated" lt great toe amp, and part of 2nd toe". Past Anesthesia/Blood Transfusion Reactions: No Reported Reaction Past Psychological History: No Psychological Hx Reported Additional Psychological History / Comment(s): PT STATED CURRENTLY homeless stated"[facility] . He is independent. He uses no assistive device. Smoking Status: Unknown if ever smoked Past Alcohol Use History: Heavy Additional Past Alcohol Use History / Comment(s): PT STATED DRINKS OCC BUT LESS THAN 14 PER WEEK Past Drug Use History: None Reported Additional Drug Use History / Comment(s): PT DENIES ANY DRUG USE IN AT LEAST 7- 8 YEARS. - Past Family History Father Family Medical History: Diabetes Mellitus, Hypertension Additional Family Medical History / Comment(s): father 2 months ago Mother Additional Family Medical History / Comment(s): pyschiatric issues. She is 76 yrs old. General Exam - General Exam Comments Initial Comments: GENERAL: Patient is well-developed and well-nourished. Patient is nontoxic and well- hydrated and is in moderate distress. ENT: Neck is soft and supple. No significant lymphadenopathy is noted. Oropharynx is clear. Dry mucous membranes Neck has full range of motion without eliciting any pain. EYES: The sclera were anicteric and conjunctiva were pink and moist. Extraocular movements were intact and pupils were equal round and reactive to light. Eyelids were unremarkable. PULMONARY: Unlabored respirations. Good breath sounds bilaterally. No audible rales rhonchi or wheezing was noted. CARDIOVASCULAR: Patient is tachycardic ABDOMEN: Soft and nontender with normal bowel sounds. No palpable organomegaly was noted. There is no palpable pulsatile mass. SKIN: Skin is clear with no lesions or rashes and otherwise unremarkable. NEUROLOGIC: Patient is alert and patient won't answer me about orientation. Cranial nerves II through XII are grossly intact. Motor and sensory are also intact. MUSCULOSKELETAL: Normal extremities with adequate strength and full range of motion. No lower extremity swelling or edema. No calf tenderness. LYMPHATICS: No significant lymphadenopathy is noted PSYCHIATRIC: Unable to assess Course Vital Signs 06/18/16 06/18/16 03:20 04:38 Temperature 96.8 F L Pulse Rate 103 H 107 H Respiratory 20 16 Rate Blood Pressure 179/78 164/81 O2 Sat by Pulse 95 98 Oximetry Medical Decision Making - Medical Decision Making EKG shows sinus tachycardia at 102 bpm MD interval is 138 QRS is 82 QT interval 344 QTC is 448. Patient's EKG shows some peaked T waves in leads V2 beats in V4. There is no ST segment elevation or depression. Because of the patient's sugar was 850 start the patient on insulin drip after I gave the patient an insulin bolus. Acute the patient 2 L of fluid to begin with. I spoke with Dr. Rg I admitted the patient I wrote admitting orders - Lab Data Result diagrams: 06/18/16 03:22 06/18/16 03:22 Lab Results 06/18/16 06/18/16 06/18/16 Range/Units 03:22 03:22 03:22 WBC 14.8 H (3.8-10.6) k/uL RBC 4.30 (4.30-5.90) m/uL Hgb 13.3 (13.0-17.5) gm/dL Hct 44.5 (39.0-53.0) % MCV 103.5 H D (80.0-100.0) fL MCH 30.8 (25.0-35.0) pg MCHC 29.8 L (31.0-37.0) g/dL RDW 14.6 (11.5-15.5) % Plt Count 325 (150-450) k/uL Neutrophils % 91 % Lymphocytes % 3 % Monocytes % 5 % Eosinophils % 0 % Basophils % 0 % Neutrophils # 13.4 H (1.3-7.7) k/uL Lymphocytes # 0.5 L (1.0-4.8) k/uL Monocytes # 0.8 (0-1.0) k/uL Eosinophils # 0.0 (0-0.7) k/uL Basophils # 0.1 (0-0.2) k/uL Hypochromasia Moderate Macrocytosis Slight Sodium 137 (137-145) mmol/L Potassium 6.3 H* (3.5-5.1) mmol/L Chloride 87 L (98-107) mmol/L Carbon Dioxide 10 L* (22-30) mmol/L Anion Gap 40 mmol/L BUN 47 H (9-20) mg/dL Creatinine 3.40 H (0.66-1.25) mg/dL Est GFR (MDRD) Af Amer 23 (>60 ml/min/1.73 sqM) Est GFR (MDRD) Non-Af 19 (>60 ml/min/1.73 sqM) Glucose 835 H* (74-99) mg/dL POC Glucose (mg/dL) (75-99) mg/dL POC Glu Plastic Process Technician ID Calcium 9.8 (8.4-10.2) mg/dL Total Bilirubin 1.2 (0.2-1.3) mg/dL AST 37 (17-59) U/L ALT 44 (21-72) U/L Alkaline Phosphatase 127 H (38-126) U/L Total Creatine Kinase 670 H (55-170) U/L CK-MB (CK-2) 8.6 H* (0.0-2.4) ng/mL CK-MB (CK-2) Rel Index 1.3 Troponin I 0.016 (0.000-0.034) ng/mL Total Protein 7.5 (6.3-8.2) g/dL Albumin 4.8 (3.5-5.0) g/dL Acetone, Qual Positive (Negative) 06/18/16 06/18/16 Range/Units 03:24 05:00 WBC (3.8-10.6) k/uL RBC (4.30-5.90) m/uL Hgb (13.0-17.5) gm/dL Hct (39.0-53.0) % MCV (80.0-100.0) fL MCH (25.0-35.0) pg MCHC (31.0-37.0) g/dL RDW (11.5-15.5) % Plt Count (150-450) k/uL Neutrophils % % Lymphocytes % % Monocytes % % Eosinophils % % Basophils % % Neutrophils # (1.3-7.7) k/uL Lymphocytes # (1.0-4.8) k/uL Monocytes # (0-1.0) k/uL Eosinophils # (0-0.7) k/uL Basophils # (0-0.2) k/uL Hypochromasia Macrocytosis Sodium (137-145) mmol/L Potassium (3.5-5.1) mmol/L Chloride (98-107) mmol/L Carbon Dioxide (22-30) mmol/L Anion Gap mmol/L BUN (9-20) mg/dL Creatinine (0.66-1.25) mg/dL Est GFR (MDRD) Af Amer (>60 ml/min/1.73 sqM) Est GFR (MDRD) Non-Af (>60 ml/min/1.73 sqM) Glucose (74-99) mg/dL POC Glucose (mg/dL) >600 H 563 H (75-99) mg/dL POC Glu Plastic Process Technician ID Carol Megha Evelyn Calcium (8.4-10.2) mg/dL Total Bilirubin (0.2-1.3) mg/dL AST (17-59) U/L ALT (21-72) U/L Alkaline Phosphatase (38-126) U/L Total Creatine Kinase (55-170) U/L CK-MB (CK-2) (0.0-2.4) ng/mL CK-MB (CK-2) Rel Index Troponin I (0.000-0.034) ng/mL Total Protein (6.3-8.2) g/dL Albumin (3.5-5.0) g/dL Acetone, Qual (Negative) Critical Care Time Critical Care Time: Yes Total Critical Care Time: 35 Disposition Clinical Impression: DKA (diabetic ketoacidoses) Disposition: ADMITTED IP TO THIS [facility] Time of Disposition: 05:02
[2016-06-18 03:31] LABS: Glucose,Whole Blood >600 mg/dL (75-99)
[2016-06-18] MEDS ORDERED: ONDANSETRON 4 MG/2 ML VIAL IVP STA (03:35)
[2016-06-18 03:38] LABS: Basophils # (A) 0.1 k/uL (0-0.2); Basophils % (A) 0 %; CH 31.4; CHCM 30.5; Eosinophils % (A) 0 %; HCT 44.5 % (39.0-53.0); HDW 2.58; HGB 13.3 gm/dL (13.0-17.5); Hypochromasia Moderate; Luc # (Auto) 0.06; Luc % (Auto) 0; Lymphocytes # (A) 0.5 k/uL (1.0-4.8); Lymphocytes % (A) 3 %; MCH 30.8 pg (25.0-35.0); MCHC 29.8 g/dL (31.0-37.0); Macrocytosis Slight; Mean Platelet Volume 8.2; Monocytes # (A) 0.8 k/uL (0-1.0); Monocytes % (A) 5 %; Neutrophils # (A) 13.4 k/uL (1.3-7.7); Neutrophils % (A) 91 %; RDW 14.6 % (11.5-15.5); WBC 14.8 k/uL (3.8-10.6); WBC (Perox) 14.63
[2016-06-18 03:48] LABS: MCV 103.5 fL (80.0-100.0)
[2016-06-18 03:49] LABS: ALT 44 U/L (21-72); AST 37 U/L (17-59); Alkaline Phosphatase 127 U/L (38-126); Anion Gap 40 mmol/L; Blood Urea Nitrogen 47 mg/dL (9-20); Calcium 9.8 mg/dL (8.4-10.2); Chloride 87 mmol/L (98-107); Non-African American GFR(MDRD) 19 (>60 ml/min/1.73 sqM); Sodium 137 mmol/L (137-145); Total Bilirubin 1.2 mg/dL (0.2-1.3); Total Protein 7.5 g/dL (6.3-8.2)
[2016-06-18 04:01] LABS: Glucose 835 mg/dL (74-99)
[2016-06-18 04:02] LABS: Carbon Dioxide 10 mmol/L (22-30); Potassium 6.3 mmol/L (3.5-5.1)
--- NOTE | 2016-06-18 04:09 | XR ---
EXAMINATION TYPE: XR chest 2V DATE OF EXAM: 06/18/2016 3:54 AM COMPARISON: 05/31/2016 HISTORY: Difficulty in breathing high blood sugar diabetic TECHNIQUE: Frontal and lateral views of the chest are obtained. FINDINGS: There is suggestion of mild pulmonary vascular congestion. There is no focal air space opacity, pleural effusion, or pneumothorax seen. The cardiac silhouette size is within normal limits. Old right seventh and eighth rib fractures posteriorly. IMPRESSION: Mild pulmonary vascular congestion. No focal pneumonia.
[2016-06-18 04:12] LABS: Troponin I 0.016 ng/mL (0.000-0.034)
[2016-06-18 04:20] LABS: Creatine Kinase MB 8.6 ng/mL (0.0-2.4)
[2016-06-18 05:01] LABS: Glucose,Whole Blood 563 mg/dL (75-99)
[2016-06-18] MEDS: SODIUM CHLORIDE 0.9% 1,000 ML IV SCH ×4 (05:19→21:26)
[2016-06-18 05:58] LABS: Glucose,Whole Blood 459 mg/dL (75-99)
[2016-06-18 06:49] LABS: Glucose,Whole Blood 435 mg/dL (75-99)
[2016-06-18 08:06] LABS: Phosphorous 4.6 mg/dL (2.5-4.5)
[2016-06-18 08:18] LABS: Potassium 5.9 mmol/L (3.5-5.1)
[2016-06-18 08:24] LABS: Glucose,Whole Blood 370 mg/dL (75-99)
[2016-06-18 09:28] LABS: Glucose,Whole Blood 238 mg/dL (75-99)
[2016-06-18] MEDS: INSULIN REGULAR 100 UNIT in SODIUM CHLORIDE 0.9% 100 ML IV SCH ×2 (10:43→18:18)
[2016-06-18 11:19] LABS: Glucose,Whole Blood 189 mg/dL (75-99)
[2016-06-18 12:08] LABS: Glucose,Whole Blood 201 mg/dL (75-99)
[2016-06-18 14:54] LABS: Phosphorous 4.2 mg/dL (2.5-4.5); Potassium 5.8 mmol/L (3.5-5.1)
[2016-06-18 15:21] LABS: Glucose,Whole Blood 185 mg/dL (75-99)
[2016-06-18] MEDS: D5-0.45% NACL WITH KCL 20MEQ/L 1,000 ML IV SCH ×2 (16:10→18:17)
[2016-06-18 17:17] LABS: Glucose,Whole Blood 166 mg/dL (75-99)
--- NOTE | 2016-06-18 19:09 | HP ---
Patient has multiple admissions for DKA. Patient is highly noncompliant with medication recommendations, comes in with DKA again. When he came in, he had altered mental status. Patient is excessively sleepy to give me any kind of history, although denied any abdominal pain, denied any fever or chills. Apart from that, he did not give me much of the history, as patient is excessively drowsy. Patient has been vomiting apparently at home and patient was confused and when he came to ER as per the ER physician's dictation, patient's mental status improved. Patient was found to be in DKA with a significant anion gap of around 30, because of which patient was admitted. Patient's kidney function as of March 2016 is normal at around 0.9. Patient appears to be in DKA as well. Patient is highly noncompliant with medications in spite of providing him with insulin supplies. Patient apparently appears to have not been taking his medications and patient's urine is positive for cocaine. REVIEW SYSTEMS: Unable to obtain due to above-mentioned reasons. Home medications include: 1. Dicyclomine. 2. Insulin aspart. 3. Famotidine. 4. Prilosec. 5. Glargine 30 units. 6. Lisinopril. ALLERGIES: No known drug allergies. PAST MEDICAL HISTORY: Significant for diabetes mellitus, hypertension, multiple episodes of DKA in the past, pneumonia, rheumatoid arthritis, questionable history. I do not believe patient actually has rheumatoid arthritis. Adenoidectomy, tonsillectomy. SOCIAL HISTORY: The patient does drink alcohol. Denied any heavy alcohol use. Denied any drug abuse. FAMILY HISTORY: Father had diabetes mellitus, hypertension. Mother has psychiatric issues. PHYSICAL EXAMINATION: VITAL SIGNS: Temperature 96.8, pulse of 91, respiratory rate of 16, blood pressure is 122/84, saturating at 100% on room air. GENERAL: Patient is excessively drowsy, unable to get much of the history from the patient because of his clinical condition. HEENT: Pupils are round and equally reacting to light. EOMI. No scleral icterus. No conjunctival pallor. Normocephalic, atraumatic. No pharyngeal erythema. No thyromegaly. CARDIOVASCULAR: S1 and S2 present. No murmurs, rubs, or gallops. PULMONARY: Chest is clear to auscultation, no wheezing or crackles. ABDOMEN: Soft, nontender, nondistended, normoactive bowel sounds. No palpable organomegaly. MUSCULOSKELETAL: No joint swelling or deformity. EXTREMITIES: No cyanosis, clubbing, or pedal edema. NEUROLOGICAL: As mentioned above. SKIN: No rashes. LABORATORY DATA: CBC and basic metabolic profile are abnormal for elevated WBC count of 14,800. Potassium when he came in was 6.3, now 5.8. Sodium was 137, now 151. Chloride 111, bicarbonate 19. Anion gap is 21. BUN 47, creatinine 3.4 when he came in, now 2.77. Urine is positive for acetone. Chest x-ray: Mild pulmonary vascular congestion as per the x-ray reading, although patient clinically is saturating 100%, is getting 125 mL of D5 half normal saline. ASSESSMENT AND PLAN: 1. Diabetic ketoacidosis with high anion gap due to high noncompliance with medications leading to acute renal failure and severe intravascular volume depletion and dehydration. 2. Acute renal failure secondary to severe intravascular volume depletion from hyperglycemia and diabetic ketoacidosis. 3. Hyperkalemia secondary to lisinopril. 4. Acute renal failure. 5. Severe intravascular volume depletion and diabetic ketoacidosis. 6. Polysubstance abuse. 7. History of diabetic gastroparesis. 8. Hyperchloremia and hypernatremia secondary to IV fluids he is receiving. Patient is presently on half normal saline with D5 with insulin in it and patient is also getting potassium supplementation which will be discontinued, as patient is hyperkalemic and does not warrant any potassium in the fluids. I believe diabetic ketoacidosis is not being followed appropriately or protocol itself is not appropriate and patient may have or acute tubular necrosis component. 9. Depression.
[2016-06-18 19:41] LABS: Glucose,Whole Blood 110 mg/dL (75-99)
[2016-06-18 20:37] LABS: Glucose,Whole Blood 57 mg/dL (75-99)
[2016-06-18 20:45] LABS: Glucose,Whole Blood 59 mg/dL (75-99)
[2016-06-18 21:11] LABS: Glucose,Whole Blood 62 mg/dL (75-99)
[2016-06-18] MEDS ORDERED: amLODIPine 10 MG TAB PO STA (21:12)
[2016-06-18] MEDS ORDERED: DEXTROSE 5%-0.9% NACL 500 ML IV SCH (21:15)
[2016-06-18 21:19] LABS: Phosphorous 2.4 mg/dL (2.5-4.5)
[2016-06-18 21:32] LABS: Glucose,Whole Blood 92 mg/dL (75-99)
[2016-06-18 22:16] LABS: Glucose,Whole Blood 95 mg/dL (75-99)
[2016-06-18 22:16] LABS: Glucose,Whole Blood 86 mg/dL (75-99)
[2016-06-18 23:19] LABS: Glucose,Whole Blood 129 mg/dL (75-99)
[2016-06-19] MEDS ORDERED: INSULIN GLARGINE 100 UNIT/ML 10 ML VIAL SQ STA (00:17)
[2016-06-19] MEDS ORDERED: DEXTROSE 5%-0.9% NACL 1,000 ML IV SCH (00:30)
[2016-06-19] MEDS: oxyCODONE-APAP 10-325MG 1 EACH TAB PO PRN ×2 (00:33→11:41)
[2016-06-19] MEDS: DEXTROSE 5% IN WATER 1,000 ML IV SCH ×2 (00:51→06:26)
[2016-06-19 00:52] LABS: Glucose,Whole Blood 97 mg/dL (75-99)
[2016-06-19 02:49] LABS: Glucose,Whole Blood 127 mg/dL (75-99)
[2016-06-19 05:25] LABS: Glucose,Whole Blood 101 mg/dL (75-99)
[2016-06-19 05:35] LABS: Appearance,Urine Clear (Clear); Bacteria,Urine Rare /hpf; Bilirubin,Urine Negative (Negative); Glucose,Urine (UA) 3+ (Negative); Ketones,Urine 1+ (Negative); Leukocyte Esterase,Urine Negative (Negative); Mucus,Urine Rare /hpf; Nitrite,Urine Negative (Negative); PH, Urine 5.5 (5.0-8.0); Particle Count 1325; Protein,Urine 1+ (Negative); Specific Gravity,Urine 1.012 (1.001-1.035); UA Billing (MACRO vs. MICRO) MICRO; Urobilinogen,Urine <2.0 mg/dL (<2.0); WBC,Urine 1 /hpf (0-5)
[2016-06-19] MEDS: INSULIN LISPRO (humaLOG) 300 UNIT/3 ML VIAL SQ SCH ×2 (06:24→12:34)
[2016-06-19 06:35] LABS: Glucose,Whole Blood 97 mg/dL (75-99)
[2016-06-19 08:09] LABS: Hemoglobin A1C 10.2 % (4.2-6.1)
[2016-06-19] MEDS ORDERED: SODIUM CHLORIDE 0.45% 1,000 ML IV SCH (08:30)
[2016-06-19] MEDS ORDERED: INSULIN DETEMIR 100 UNIT/ML 10 ML VIAL SQ SCH (09:00)
[2016-06-19] MEDS ORDERED: PANTOPRAZOLE 40 MG/10 ML VIAL IVP SCH (09:00)
[2016-06-19 11:49] VITALS: BMI 24.8
[2016-06-19 12:14] LABS: Glucose,Whole Blood 179 mg/dL (75-99)
[2016-06-19] MEDS ORDERED: INSULIN LISPRO (humaLOG) 300 UNIT/3 ML VIAL SQ SCH (12:30)
[2016-06-19 14:44] VITALS: BP 132/99; PULSE 97; RESP 20
[2016-06-19] MEDS ORDERED: ACETAMINOPHEN TAB 325 MG TAB PO STA (15:39)
[2016-06-19 15:43] VITALS: TEMP 98.9
--- NOTE | 2016-06-19 15:47 | P.DS ---
Providers Date of admission: 06/18/16 05:02 Expected date of discharge: 06/19/16 Attending physician: Verónica Lomas. Primary care physician: Stated None Ermelinda Jeffries Hospital Course: Final diagnoses: 1.DKA with high anion gap due to high noncompliance with medications, lead to acute renal failure, severe intravascular volume depletion, dehydration, hyperkalemia-resolved. 2. Acute renal failure secondary to severe intravascular volume depletion from hyperglycemia and DKA, improving. Patient may have acute tubular necrosis component. 3. Hyperkalemia secondary to lisinopril, dose decreased and patient to resume in 24 hours. 4. Polysubstance abuse 5. History of diabetic gastroparesis 6. Hypernatremia secondary to IV fluids. 7. Depression. Hospital course: This is a 56-year-old gentleman admitted with DKA, received IV fluid hydration, DKA protocol. Hemoglobin A1c 10.2, urine positive for cocaine. DKA resolved, CO2 30. Blood sugars controlled. Significant clinical improvement. Patient is being discharged home in a stable condition. The impression and plan of care has been dictated as directed. : I performed a H&P examination of this patient and discussed the same with the dictator. I agree with the dictator's note. Any additional findings/opinions/ etc. will be noted. Patient Condition at Discharge: Stable Plan - Discharge Summary New Discharge Prescriptions: Lisinopril [Zestril] 10 mg PO DAILY #30 tab Discharge Medication List Dicyclomine [Bentyl] 20 mg PO QID PRN 03/08/16 [History] Insulin Aspart [NovoLOG] See Protocol SQ AC-TID 03/20/16 [History] Omeprazole [PriLOSEC] 40 mg PO AC-BRKFST #14 capsule. 03/26/16 [Rx] INSULIN LISPRO (humaLOG) [humaLOG (formulary)] 5 unit SQ AC-TID #1 vial [Rx] Insulin Glargine [Lantus] 25 unit SQ DAILY #1 vial 06/19/16 [Rx] Lisinopril [Zestril] 10 mg PO DAILY #30 tab 06/19/16 [Rx] Follow up Appointment(s)/Referral(s): [facility] - 1 Week (Pt needs to call for appointment per office. ) Patient Instructions/Handouts: Diabetic Ketoacidosis (DC) Activity/Diet/Wound Care/Special Instructions: Large sum of money in security (returned to pt) NO illegal drug usage Take medications as prescribed, per your pharmacy- you have medications that have not been picked up yet. Cardiac, diabetic diet.
[2016-06-20] MEDS ORDERED: PANTOPRAZOLE 40 MG TABLET PO SCH (07:30)
== END 2016-06-19 15:44 | disposition home or self-care (01) | DRG 637 ==
LOC: EC 03:17 → 6SEL 05:02 → 4MS4W 06-19 11:08
PROVIDERS: ADMIT Hospitalist; ATTEND Hospitalist
DX: E10.10 Type 1 diabetes mellitus with ketoacidosis without coma (principal); N17.0 Acute kidney failure with tubular necrosis; K31.84 Gastroparesis; I50.9 Heart failure, unspecified; E87.0 Hyperosmolality and hypernatremia; I11.0 Hypertensive heart disease with heart failure; E10.42 Type 1 diabetes mellitus with diabetic polyneuropathy; E87.8 Other disorders of electrolyte and fluid balance, not elsewhere classified; E87.5 Hyperkalemia; E86.0 Dehydration; T46.4X5A Adverse effect of angiotensin-converting-enzyme inhibitors, initial encounter; R00.0 Tachycardia, unspecified; D72.829 Elevated white blood cell count, unspecified; F19.10 Other psychoactive substance abuse, uncomplicated; R41.82 Altered mental status, unspecified; E10.43 Type 1 diabetes mellitus with diabetic autonomic (poly)neuropathy; R11.10 Vomiting, unspecified; L40.9 Psoriasis, unspecified; M06.9 Rheumatoid arthritis, unspecified; K29.70 Gastritis, unspecified, without bleeding; L30.9 Dermatitis, unspecified; M19.90 Unspecified osteoarthritis, unspecified site; G89.29 Other chronic pain; M54.9 Dorsalgia, unspecified; F10.10 Alcohol abuse, uncomplicated; F32.9 Major depressive disorder, single episode, unspecified; Z83.3 Family history of diabetes mellitus; Z82.49 Family history of ischemic heart disease and other diseases of the circulatory system; Z79.4 Long term (current) use of insulin; Z81.8 Family history of other mental and behavioral disorders; Z87.01 Personal history of pneumonia (recurrent); Z86.19 Personal history of other infectious and parasitic diseases; Z86.14 Personal history of Methicillin resistant Staphylococcus aureus infection; Z79.899 Other long term (current) drug therapy; Z91.14 Patient's other noncompliance with medication regimen; Z59.0 Homelessness; Z87.11 Personal history of peptic ulcer disease; Z89.412 Acquired absence of left great toe; Z89.429 Acquired absence of other toe(s), unspecified side
CPT/HCPCS: 36415; 71020; 80051; 80053; 80306; 80320; 81001; 82009; 82550; 82553; 82565; 82947; 83036; 84100; 84484; 84520; 85025; 93005; 96361; 96374; 96375; 99291

== ENCOUNTER 2016-06-24 18:15 | Inpatient (IN) | payer OTHER ==
[2016-06-24] MEDS ORDERED: SODIUM CHLORIDE 0.9% 500 ML IV STA (18:26)
[2016-06-24] MEDS ORDERED: SODIUM CHLORIDE 0.9% 1,000 ML IV STA (18:26)
--- NOTE | 2016-06-24 18:27 | ED ---
General Adult HPI - General Chief complaint: Altered Mental Status Stated complaint: altered loc Time Seen by Provider: 06/24/16 18:25 Source: patient, EMS, RN notes reviewed, old records reviewed Mode of arrival: EMS Limitations: altered mental status - History of Present Illness Initial comments: This is a 54-year-old male here for evaluation of weakness. Not acting appropriately. Patient does have severe as her diabetes. Patient is found to be mildly responsive, EMS was called secondary to patient's decreased level of consciousness. Patient was finally critical high blood sugar. Patient is not acting appropriately at this time, answering questions appropriately secondary clinical status, history of history from EMS and the patient's chart - Related Data Home Medications Medication Instructions Recorded Confirmed Dicyclomine [Bentyl] 20 mg PO QID PRN 03/08/16 06/24/16 Insulin Aspart [NovoLOG] See Protocol SQ AC-TID 03/20/16 06/24/16 Previous Rx's Medication Instructions Recorded Omeprazole [PriLOSEC] 40 mg PO AC-BRKFST #14 capsule. 03/26/16 INSULIN LISPRO (humaLOG) [humaLOG 5 unit SQ AC-TID #1 vial 06/03/16 (formulary)] Insulin Glargine [Lantus] 25 unit SQ DAILY #1 vial 06/19/16 Lisinopril [Zestril] 10 mg PO DAILY #30 tab 06/19/16 Allergies Allergy/AdvReac Type Severity Reaction Status Date / Time No Known Allergies Allergy Verified 06/18/16 03:56 Review of Systems ROS Statement: Those systems with pertinent positive or pertinent negative responses have been documented in the HPI. ROS Other: All systems not noted in ROS Statement are negative. Past Medical History Past Medical History: Heart Failure, Diabetes Mellitus, Hypertension, Pneumonia , Renal Disease, Rheumatoid Arthritis (RA) Additional Past Medical History / Comment(s): Pt recently admitted 05/31/16 to [facility] with DKA/noncompliance with insulin. Pt is currently not speaking. He opens his eyes on occasion when his name is spoken. No family at bedside. All PMH is from previous medical records. PMH: IDDM type I poorly controlled, diabetic gastroparesis, bilateral feet peripheral neuropathy, blood behind both eyes, peptic ulcer disease/duodenal ulcer/gastritis with erosions, previous hospitalization for pulmonary edema and bilateral pleural effusion and subsequent evaluation showed a preserved LV function with an ejection fraction of around 50%, CKD stage III, normocytic chronic anemia, rheumatoid arthritis, DJD, chronic back pain, osteoarthritis-generalized, eczema, psoriasis, ear infections, hx of narcotic abuse, cocaine abuse and alcohol abuse. History of Any Multi-Drug Resistant Organisms: MRSA Date of last positivie culture/infection: 2007 MDRO Source:: pustual/boil on back of neck Past Surgical History: Adenoidectomy, Tonsillectomy Additional Past Surgical History / Comment(s): colonoscopy 2009, EGD, lt great toe amp, and part of 2nd toe. Past Anesthesia/Blood Transfusion Reactions: No Reported Reaction Past Psychological History: No Psychological Hx Reported Additional Psychological History / Comment(s): Unknown at this time, however PM documents that pt is normally independent and uses no assistive device and that pt has been homeless. Smoking Status: Unknown if ever smoked Past Alcohol Use History: None Reported Additional Past Alcohol Use History / Comment(s): PT has STATED in PMH that he DRINKS OCC BUT LESS THAN 14 PER WEEK Past Drug Use History: None Reported Additional Drug Use History / Comment(s): PT PMH stated pt DENIES ANY DRUG USE IN AT LEAST 7-8 YEARS. 06/18/16 toxicology + for cocaine. - Past Family History Father Family Medical History: Diabetes Mellitus, Hypertension Additional Family Medical History / Comment(s): father 2 months ago Mother Additional Family Medical History / Comment(s): pyschiatric issues. She is 76 yrs old. General Exam Limitations: altered mental status General appearance: alert, anxious, lethargic Head exam: Present: atraumatic, normocephalic, normal inspection Eye exam: Present: normal appearance, PERRL, EOMI. Absent: scleral icterus, conjunctival injection, periorbital swelling ENT exam: Present: mucous membranes dry Neck exam: Present: normal inspection. Absent: tenderness, meningismus, lymphadenopathy Respiratory exam: Present: normal lung sounds bilaterally. Absent: respiratory distress, wheezes, rales, rhonchi, stridor Cardiovascular Exam: Present: normal rhythm, tachycardia, normal heart sounds. Absent: systolic murmur, diastolic murmur, rubs, gallop, clicks GI/Abdominal exam: Present: soft, normal bowel sounds. Absent: distended, tenderness, guarding, rebound, rigid Extremities exam: Present: normal inspection, full ROM, normal capillary refill. Absent: tenderness, pedal edema, joint swelling, calf tenderness Back exam: Present: normal inspection Neurological exam: Present: alert, oriented X3, CN II-XII intact Psychiatric exam: Present: normal affect, normal mood Skin exam: Present: warm, dry, intact, normal color. Absent: rash Course Vital Signs 06/24/16 06/24/16 06/24/16 18:18 19:05 19:18 Temperature 98.6 F 97.6 F Pulse Rate 109 H 116 H 114 H Respiratory 18 20 22 Rate Blood Pressure 152/76 147/63 147/105 O2 Sat by Pulse 94 L 100 Oximetry - Reevaluation(s) Reevaluation #1: 06/24/16 19:35 Patient is improved with IV fluids resuscitation EKG Findings - EKG Comments: EKG Findings:: EKG shows sinus tachycardia rate of 118, P1 34, QRS 68, QTC 448 Medical Decision Making - Medical Decision Making 56 male ER for evaluation of probable DKA, patient found to be DKA will be admitted for DKA, IV insulin and monitoring of electrolytes. - Lab Data Result diagrams: 06/24/16 18:55 Lab Results 06/24/16 06/24/16 06/24/16 Range/Units 18:55 18:55 18:55 WBC 15.9 H (3.8-10.6) k/uL RBC 4.38 (4.30-5.90) m/uL Hgb 13.4 (13.0-17.5) gm/dL Hct 44.3 (39.0-53.0) % MCV 101.3 H (80.0-100.0) fL MCH 30.7 (25.0-35.0) pg MCHC 30.3 L (31.0-37.0) g/dL RDW 14.0 (11.5-15.5) % Plt Count 334 (150-450) k/uL Neutrophils % 89 % Lymphocytes % 3 % Monocytes % 7 % Eosinophils % 1 % Basophils % 0 % Neutrophils # 14.1 H (1.3-7.7) k/uL Lymphocytes # 0.5 L (1.0-4.8) k/uL Monocytes # 1.1 H (0-1.0) k/uL Eosinophils # 0.1 (0-0.7) k/uL Basophils # 0.1 (0-0.2) k/uL Hypochromasia Slight Macrocytosis Slight PT 10.5 (9.0-12.0) sec INR 1.0 (<1.1) APTT 21.2 L (22.0-30.0) sec Acetone, Qual Positive (Negative) Critical Care Time Critical Care Time: Yes Total Critical Care Time: 31 Disposition Clinical Impression: Delirium due to general medical condition, Dehydration, moderate, DKA ( diabetic ketoacidoses) Disposition: ADMITTED IP TO THIS [facility] Condition: Serious Referrals: None,Stated [Primary Care Provider] - 1-2 days
[2016-06-24 19:04] LABS: Basophils # (A) 0.1 k/uL (0-0.2); Basophils % (A) 0 %; CH 31.4; CHCM 31.2; Eosinophils # (A) 0.1 k/uL (0-0.7); Eosinophils % (A) 1 %; HCT 44.3 % (39.0-53.0); HDW 2.59; HGB 13.4 gm/dL (13.0-17.5); Hypochromasia Slight; Luc # (Auto) 0.07; Luc % (Auto) 0; Lymphocytes # (A) 0.5 k/uL (1.0-4.8); Lymphocytes % (A) 3 %; MCH 30.7 pg (25.0-35.0); MCHC 30.3 g/dL (31.0-37.0); MCV 101.3 fL (80.0-100.0); Macrocytosis Slight; Mean Platelet Volume 8.8; Monocytes # (A) 1.1 k/uL (0-1.0); Monocytes % (A) 7 %; Neutrophils # (A) 14.1 k/uL (1.3-7.7); Neutrophils % (A) 89 %; RBC 4.38 m/uL (4.30-5.90); WBC 15.9 k/uL (3.8-10.6); WBC (Perox) 14.39
[2016-06-24 19:23] LABS: Prothrombin Time 10.5 sec (9.0-12.0)
[2016-06-24 19:24] LABS: ALT 47 U/L (21-72); AST 33 U/L (17-59); Alkaline Phosphatase 130 U/L (38-126); Anion Gap 38 mmol/L; Blood Urea Nitrogen 33 mg/dL (9-20); Calcium 9.9 mg/dL (8.4-10.2); Carbon Dioxide 15 mmol/L (22-30); Chloride 85 mmol/L (98-107); Magnesium 2.1 mg/dL (1.6-2.3); Non-African American GFR(MDRD) 32 (>60 ml/min/1.73 sqM); Partial Thromboplastin Time 21.2 sec (22.0-30.0); Potassium 5.4 mmol/L (3.5-5.1); Sodium 138 mmol/L (137-145); Total Bilirubin 0.9 mg/dL (0.2-1.3); Total Protein 7.1 g/dL (6.3-8.2)
[2016-06-24 19:32] LABS: Creatine Kinase 158 U/L (55-170)
[2016-06-24 19:36] LABS: Glucose 659 mg/dL (74-99); Phosphorous 8.1 mg/dL (2.5-4.5)
[2016-06-24] MEDS ORDERED: SODIUM CHLORIDE 0.9% 1,000 ML IV ONE (19:36)
[2016-06-24] MEDS ORDERED: INSULIN REGULAR BOLUS (FROM DRIP BAG) IV ONE (19:36)
[2016-06-24 19:45] LABS: Troponin I <0.012 ng/mL (0.000-0.034)
[2016-06-24] MEDS ORDERED: SODIUM CHLORIDE 0.9% 1,000 ML IV SCH (19:45)
[2016-06-24 19:53] LABS: Creatine Kinase MB 3.2 ng/mL (0.0-2.4)
[2016-06-24] MEDS: INSULIN REGULAR 100 UNIT in SODIUM CHLORIDE 0.9% 100 ML IV SCH (20:26)
[2016-06-24 20:28] LABS: Appearance,Urine Clear (Clear); Bilirubin,Urine Negative (Negative); Glucose,Urine (UA) 4+ (Negative); Leukocyte Esterase,Urine Negative (Negative); Nitrite,Urine Negative (Negative); Protein,Urine Negative (Negative); Specific Gravity,Urine 1.014 (1.001-1.035); UA Billing (MACRO vs. MICRO) CHEM; Urobilinogen,Urine <2.0 mg/dL (<2.0)
[2016-06-24] MEDS: D5-0.45% NACL WITH KCL 20MEQ/L 1,000 ML IV SCH (20:33)
[2016-06-24 20:44] LABS: Ketones,Urine 4+ (Negative)
[2016-06-24] MEDS ORDERED: LORazepam 2 MG/ML SYRINGE IV STA (20:51)
[2016-06-24] MEDS ORDERED: ONDANSETRON 4 MG/2 ML VIAL IVP PRN (20:51)
[2016-06-24] MEDS ORDERED: ONDANSETRON 4 MG/2 ML VIAL IVP STA (20:51)
[2016-06-24] MEDS ORDERED: LORazepam 2 MG/ML SYRINGE IV PRN (20:51)
[2016-06-24] MEDS ORDERED: LORazepam 2 MG/ML SYRINGE IM STA (21:07)
[2016-06-24 21:15] LABS: Glucose,Whole Blood >600 mg/dL (75-99)
[2016-06-24 22:37] LABS: Glucose,Whole Blood 509 mg/dL (75-99)
[2016-06-24 23:31] LABS: Glucose,Whole Blood 447 mg/dL (75-99)
[2016-06-24 23:56] LABS: Phosphorous 3.3 mg/dL (2.5-4.5)
[2016-06-25] LABS: Potassium 4.8 mmol/L (3.5-5.1)
[2016-06-25 00:31] LABS: Glucose,Whole Blood 400 mg/dL (75-99)
[2016-06-25 01:29] LABS: Glucose,Whole Blood 329 mg/dL (75-99)
[2016-06-25 02:27] LABS: Glucose,Whole Blood 367 mg/dL (75-99)
[2016-06-25 03:37] LABS: Glucose,Whole Blood 258 mg/dL (75-99)
[2016-06-25] MEDS: INSULIN REGULAR 100 UNIT in SODIUM CHLORIDE 0.9% 100 ML IV SCH (03:51)
[2016-06-25] MEDS: D5-0.45% NACL WITH KCL 20MEQ/L 1,000 ML IV SCH ×3 (03:51→10:53)
[2016-06-25 04:48] LABS: Glucose,Whole Blood 228 mg/dL (75-99)
[2016-06-25 05:37] LABS: Glucose,Whole Blood 195 mg/dL (75-99)
[2016-06-25 06:37] LABS: Glucose,Whole Blood 183 mg/dL (75-99)
[2016-06-25 07:47] LABS: Glucose,Whole Blood 182 mg/dL (75-99)
[2016-06-25 08:05] LABS: Basophils # (A) 0.1 k/uL (0-0.2); Basophils % (A) 0 %; CHCM 33.3; Eosinophils # (A) 0.2 k/uL (0-0.7); Eosinophils % (A) 1 %; HGB 13.2 gm/dL (13.0-17.5); Luc # (Auto) 0.44; Luc % (Auto) 3; Lymphocytes # (A) 2.5 k/uL (1.0-4.8); Lymphocytes % (A) 14 %; MCH 31.7 pg (25.0-35.0); MCHC 32.9 g/dL (31.0-37.0); Mean Platelet Volume 8.5; Monocytes # (A) 1.8 k/uL (0-1.0); Monocytes % (A) 10 %; Neutrophils # (A) 12.6 k/uL (1.3-7.7); Neutrophils % (A) 72 %; RBC 4.15 m/uL (4.30-5.90); RDW 14.5 % (11.5-15.5); WBC 17.6 k/uL (3.8-10.6); WBC (Perox) 17.32
[2016-06-25 08:06] LABS: MCV 96.3 fL (80.0-100.0)
[2016-06-25 08:22] LABS: Calcium 9.2 mg/dL (8.4-10.2); Phosphorous 2.8 mg/dL (2.5-4.5); Total Protein 6.6 g/dL (6.3-8.2)
[2016-06-25 08:28] LABS: Potassium 5.7 mmol/L (3.5-5.1)
[2016-06-25 08:57] LABS: Glucose,Whole Blood 128 mg/dL (75-99)
[2016-06-25 09:57] LABS: Glucose,Whole Blood 115 mg/dL (75-99)
[2016-06-25 10:08] LABS: Hemoglobin A1C 10.1 % (4.2-6.1)
--- NOTE | 2016-06-25 10:17 | HP ---
DATE OF ADMISSION: CHIEF COMPLAINT: A 56-year-old white male admitted with DKA and altered mental status. HISTORY OF PRESENT ILLNESS: A 56-year-old white male admitted with DKA and altered mental status due to decreased level of consciousness. He was found and EMS showed up. He had high sugar level. He was admitted to the hospital with DKA. HOME MEDICINES: Bentyl, NovoLog, Lantus 25 units subcu daily, Zestril 10 mg daily. ALLERGIES: Negative. REVIEW OF SYSTEMS: Fourteen-point review of systems negative except for as in HPI. PAST MEDICAL HISTORY: Heart failure, diabetes mellitus, hypertension, pneumonia, renal disease, rheumatoid arthritis. Review of systems unobtainable as he is obtunded. SURGICAL HISTORY: Adenoidectomy, tonsillectomy. SOCIAL HISTORY: Drug use 7 to 8 years, toxicology positive cocaine. FAMILY HISTORY: Diabetes mellitus, hypertension in the dad and mother has psychiatric issues. PHYSICAL EXAM: Temperature 97.6, pulse is in the low 100s, respiratory rate 18 to 22, blood pressure 140s to 150s over 70s. 02 to 100% on room air. CARDIOVASCULAR: S1, S2. Tachycardic. No murmurs, rubs, gallops. LUNGS: Transmitted upper airway sounds. HEMATOLOGIC: Negative Homans. PSYCHIATRIC: Fair mood and affect. NEUROLOGIC: Obtunded. PSYCHIATRIC: Poor affect, he is obtunded. GI: Soft. No mass. White count 15.9. ASSESSMENT: Diabetic ketoacidosis on diabetic ketoacidosis protocol. Will monitor potassium and electrolytes. Repeat labs in the morning.
[2016-06-25 10:47] VITALS: BMI 23.3
[2016-06-25 10:51] LABS: Glucose,Whole Blood 76 mg/dL (75-99)
[2016-06-25 12:03] LABS: Glucose,Whole Blood 112 mg/dL (75-99)
[2016-06-25] MEDS ORDERED: DICYCLOMINE 20 MG TAB PO PRN (12:33)
--- NOTE | 2016-06-25 12:59 | P.PN ---
Subjective 56-year-old Afro-[place] male admitted to the emergency room with acute mental status suspect due to DKA. Patient was seen in the emergency room for high blood sugars. Was admitted to DKA. His was treated per protocol for treatment of DKA in the emergency room and admitted to a [facility] bed. Hemoglobin A1c 10.1 patient's last admission was June 19 2016 at that time the patient was treated for DKA. Patient has been noncompliant with taking his medication. At that omission patient was treated for acute dehydration elevated potassium acute renal failure all due to patient not being compliant with taking his diabetic medication. That admission patient's drug screen urine was positive for cocaine Objective - Vital Signs Vital signs: Vital Signs Temp 98.7 F 06/25/16 11:09 Pulse 96 06/25/16 11:09 Resp 16 06/25/16 11:09 BP 137/65 06/25/16 11:09 Pulse Ox 98 06/25/16 11:09 Intake & Output 06/24/16 06/25/16 06/25/16 18:59 06:59 18:59 Intake Total 509.600 36.1 Balance 509.600 36.1 Weight 71.5 kg 71.5 kg Intake: IV 374 D5-0.45% NaCl with KCl 150 20Meq/l 1,000 ml @ 150 mls/hr IV .[id number] JURGEN Rx# :[id number] Insulin Regular 100 unit 24 In Sodium Chloride 0.9% 100 ml @ 0.1 UNITS/KG/HR 8.01 mls/hr IV .[id number] JURGEN Rx#:[id number] Sodium Chloride 0.9% 1, 200 000 ml @ 200 mls/hr IV . Q5H JURGEN Rx#:[id number] Intake, IV Titration 135.600 36.1 Amount Insulin Regular 100 unit 135.600 36.1 In Sodium Chloride 0.9% 100 ml @ 0.1 UNITS/KG/HR 8.01 mls/hr IV .[id number] JURGEN Rx#:[id number] Other: Voiding Method Incontinent Incontinent - Exam Physical exam Patient is increasingly more awake and is asking for Percocet for generalized body aches. Patient is on no opiates at home. Does have a history of polysubstance abuse. Patient's blood sugars are being corrected per protocol. Patient is more awake alert and oriented to person and place Lungs essentially clear adequate air movement Heart S1-S2 audible regular Abdomen soft nontender Extremities no edema - Labs CBC & Chem 7: 06/25/16 06:30 06/25/16 06:30 Labs: Abnormal Lab Results - Last 24 Hours (Table) 06/24/16 06/24/16 06/24/16 Range/Units 20:20 21:04 22:35 WBC (3.8-10.6) k/uL RBC (4.30-5.90) m/uL Neutrophils # (1.3-7.7) k/uL Monocytes # (0-1.0) k/uL Sodium (137-145) mmol/L Potassium (3.5-5.1) mmol/L Carbon Dioxide (22-30) mmol/L BUN (9-20) mg/dL Creatinine (0.66-1.25) mg/dL Glucose (74-99) mg/dL POC Glucose (mg/dL) >600 H 509 H (75-99) mg/dL Hemoglobin A1c (4.2-6.1) % Urine Glucose (UA) 4+ H (Negative) Urine Ketones 4+ H (Negative) 06/24/16 06/24/16 06/25/16 Range/Units 23:29 23:35 00:29 WBC (3.8-10.6) k/uL RBC (4.30-5.90) m/uL Neutrophils # (1.3-7.7) k/uL Monocytes # (0-1.0) k/uL Sodium (137-145) mmol/L Potassium (3.5-5.1) mmol/L Carbon Dioxide 18 L (22-30) mmol/L BUN 36 H (9-20) mg/dL Creatinine 2.00 H (0.66-1.25) mg/dL Glucose 422 H (74-99) mg/dL POC Glucose (mg/dL) 447 H 400 H (75-99) mg/dL Hemoglobin A1c (4.2-6.1) % Urine Glucose (UA) (Negative) Urine Ketones (Negative) 06/25/16 06/25/16 06/25/16 Range/Units 01:27 02:26 03:36 WBC (3.8-10.6) k/uL RBC (4.30-5.90) m/uL Neutrophils # (1.3-7.7) k/uL Monocytes # (0-1.0) k/uL Sodium (137-145) mmol/L Potassium (3.5-5.1) mmol/L Carbon Dioxide (22-30) mmol/L BUN (9-20) mg/dL Creatinine (0.66-1.25) mg/dL Glucose (74-99) mg/dL POC Glucose (mg/dL) 329 H 367 H 258 H (75-99) mg/dL Hemoglobin A1c (4.2-6.1) % Urine Glucose (UA) (Negative) Urine Ketones (Negative) 06/25/16 06/25/16 06/25/16 Range/Units 04:47 05:35 06:30 WBC (3.8-10.6) k/uL RBC (4.30-5.90) m/uL Neutrophils # (1.3-7.7) k/uL Monocytes # (0-1.0) k/uL Sodium 150 H (137-145) mmol/L Potassium 5.7 H (3.5-5.1) mmol/L Carbon Dioxide (22-30) mmol/L BUN 35 H (9-20) mg/dL Creatinine 1.68 H (0.66-1.25) mg/dL Glucose 211 H (74-99) mg/dL POC Glucose (mg/dL) 228 H 195 H (75-99) mg/dL Hemoglobin A1c (4.2-6.1) % Urine Glucose (UA) (Negative) Urine Ketones (Negative) 06/25/16 06/25/16 06/25/16 Range/Units 06:30 06:30 06:36 WBC 17.6 H (3.8-10.6) k/uL RBC 4.15 L (4.30-5.90) m/uL Neutrophils # 12.6 H (1.3-7.7) k/uL Monocytes # 1.8 H (0-1.0) k/uL Sodium (137-145) mmol/L Potassium (3.5-5.1) mmol/L Carbon Dioxide (22-30) mmol/L BUN (9-20) mg/dL Creatinine (0.66-1.25) mg/dL Glucose (74-99) mg/dL POC Glucose (mg/dL) 183 H (75-99) mg/dL Hemoglobin A1c 10.1 H (4.2-6.1) % Urine Glucose (UA) (Negative) Urine Ketones (Negative) 06/25/16 06/25/16 06/25/16 Range/Units 07:44 08:55 09:54 WBC (3.8-10.6) k/uL RBC (4.30-5.90) m/uL Neutrophils # (1.3-7.7) k/uL Monocytes # (0-1.0) k/uL Sodium (137-145) mmol/L Potassium (3.5-5.1) mmol/L Carbon Dioxide (22-30) mmol/L BUN (9-20) mg/dL Creatinine (0.66-1.25) mg/dL Glucose (74-99) mg/dL POC Glucose (mg/dL) 182 H 128 H 115 H (75-99) mg/dL Hemoglobin A1c (4.2-6.1) % Urine Glucose (UA) (Negative) Urine Ketones (Negative) 06/25/16 Range/Units 12:00 WBC (3.8-10.6) k/uL RBC (4.30-5.90) m/uL Neutrophils # (1.3-7.7) k/uL Monocytes # (0-1.0) k/uL Sodium (137-145) mmol/L Potassium (3.5-5.1) mmol/L Carbon Dioxide (22-30) mmol/L BUN (9-20) mg/dL Creatinine (0.66-1.25) mg/dL Glucose (74-99) mg/dL POC Glucose (mg/dL) 112 H (75-99) mg/dL Hemoglobin A1c (4.2-6.1) % Urine Glucose (UA) (Negative) Urine Ketones (Negative) Microbiology - Last 24 Hours (Table) 06/24/16 20:20 Urine Culture - Preliminary Urine,Voided Assessment and Plan Plan: Impression Present on admission acute toxic encephalopathy suspect due to DKA History of polysubstance abuse with a positive urine drug screen for cocaine History of diabetic gastroparesis Present on admission DKA with a high anion gap due to noncompliance with medication Present on admission acute renal failure secondary to severe intravascular volume depletion from hyperglycemia and DKA improving patient may have a component of acute tubular necrosis Present on admission acute renal failure severe intravascular volume depletion with clinical dehydration and hyperkalemia Depressive disorder Type 2 diabetes insulin requiring uncontrolled hemoglobin A1c 10.5 Hyperkalemia secondary to MARI inhibitor Present on admission hypernatremia secondary to IV fluid received a fluid bolus in the ER 500 of saline Plan Stop the insulin drip and resume patient's home insulin doses Reinforce diabetic education Repeat labs in the morning DVT and GI prophylaxis Resume home meds as appropriate Hold lisinopril secondary to elevated potassium level Monitor blood sugars address as indicated Further recommendations pending The above dictated assessment and findings were discussed with dr menjivar Impression and the plan of care have been dictated as directed. Bri Melendez nurse practitioner acting as a scribe for dr menjivar
[2016-06-25] MEDS: traMADol 50 MG TAB PO PRN (15:25)
[2016-06-25] MEDS: hydrALAZINE HCL 50 MG TAB PO SCH ×2 (15:27→20:44)
[2016-06-25] MEDS: amLODIPine 5 MG TAB PO SCH (15:27)
[2016-06-25 16:58] LABS: Glucose,Whole Blood 292 mg/dL (75-99)
[2016-06-25] MEDS ORDERED: INSULIN LISPRO (humaLOG) 300 UNIT/3 ML VIAL SQ SCH (17:30)
[2016-06-25] MEDS: INSULIN LISPRO (humaLOG) 300 UNIT/3 ML VIAL SQ SCH ×2 (17:33→23:29)
[2016-06-25 20:58] LABS: Glucose,Whole Blood 253 mg/dL (75-99)
[2016-06-25 21:04] LABS: Glucose,Whole Blood 81 mg/dL (75-99)
[2016-06-26 06:06] LABS: Glucose,Whole Blood 275 mg/dL (75-99)
[2016-06-26 06:17] LABS: Basophils % (A) 0 %; CH 31.2; CHCM 31.2; Eosinophils # (A) 0.1 k/uL (0-0.7); Eosinophils % (A) 1 %; HCT 39.7 % (39.0-53.0); HDW 2.42; HGB 12.4 gm/dL (13.0-17.5); Hypochromasia Slight; Luc # (Auto) 0.21; Luc % (Auto) 3; Lymphocytes # (A) 2.1 k/uL (1.0-4.8); Lymphocytes % (A) 26 %; MCH 31.5 pg (25.0-35.0); MCHC 31.3 g/dL (31.0-37.0); MCV 100.5 fL (80.0-100.0); Macrocytosis Slight; Mean Platelet Volume 7.4; Monocytes # (A) 0.5 k/uL (0-1.0); Monocytes % (A) 7 %; Neutrophils # (A) 5.2 k/uL (1.3-7.7); Neutrophils % (A) 64 %; RBC 3.96 m/uL (4.30-5.90); RDW 14.2 % (11.5-15.5); WBC 8.2 k/uL (3.8-10.6); WBC (Perox) 8.46
[2016-06-26 06:30] LABS: ALT 43 U/L (21-72); AST 27 U/L (17-59); Alkaline Phosphatase 102 U/L (38-126); Anion Gap 17 mmol/L; Blood Urea Nitrogen 20 mg/dL (9-20); Calcium 8.5 mg/dL (8.4-10.2); Carbon Dioxide 21 mmol/L (22-30); Chloride 98 mmol/L (98-107); Glucose 247 mg/dL (74-99); Non-African American GFR(MDRD) 60 (>60 ml/min/1.73 sqM); Potassium 4.5 mmol/L (3.5-5.1); Sodium 136 mmol/L (137-145); Total Bilirubin 0.8 mg/dL (0.2-1.3); Total Protein 5.9 g/dL (6.3-8.2)
[2016-06-26] MEDS: PANTOPRAZOLE 40 MG TABLET PO SCH (07:20)
[2016-06-26] MEDS: INSULIN LISPRO (humaLOG) 300 UNIT/3 ML VIAL SQ SCH ×7 (07:20→22:16)
[2016-06-26] MEDS ORDERED: INSULIN LISPRO (humaLOG) 300 UNIT/3 ML VIAL SQ SCH (07:30)
[2016-06-26] MEDS ORDERED: LISINOPRIL 10 MG TAB PO SCH (09:00)
[2016-06-26] MEDS ORDERED: INSULIN GLARGINE 100 UNIT/ML 10 ML VIAL SQ SCH ×2 (09:00→09:09)
[2016-06-26] MEDS: amLODIPine 5 MG TAB PO SCH (09:30)
[2016-06-26] MEDS: traMADol 50 MG TAB PO PRN (09:30)
[2016-06-26] MEDS: hydrALAZINE HCL 50 MG TAB PO SCH ×2 (09:30→22:20)
[2016-06-26 12:06] LABS: Glucose,Whole Blood 188 mg/dL (75-99)
--- NOTE | 2016-06-26 13:22 | P.DS ---
Providers Date of admission: 06/24/16 19:36 Expected date of discharge: 06/26/16 Attending physician: Nimesh Menjivar Primary care physician: Stated None Hospital Course: 56-year-old Afro-[place] male admitted to the emergency room with acute mental status suspect due to DKA. Patient was seen in the emergency room for high blood sugars. Was admitted to DKA. His was treated per protocol for treatment of DKA in the emergency room and admitted to a F bed. Hemoglobin A1c 10.1 patient's last admission was June 19 2016 at that time the patient was treated for DKA. Patient has been noncompliant with taking his medication. At that omission patient was treated for acute dehydration elevated potassium acute renal failure all due to patient not being compliant with taking his diabetic medication. That admission patient's drug screen urine was positive for cocaine The nurse informatics educator did see the patient. The last admission the patient was given indigent drug for insulin. Patient was recently in admitted and discharged on June 19 for DKA similar clinical presentation. The residential case manager did contact the PCP office in which the patient stated that he didn't follow-up patient reportedly was seen Dr. Sofia emanuel from June 20. Additionally the residential case manager indicates that at that this hospitalization the patient was set up for home care the home care agency reportedly tried to go out to the house at least 5 times according to the residential case manager will they were not able to connect with the patient should worker did see the patient this admission the patient states that at this time he would be interested in having : Care this was set up before discharge Impression Present on admission acute toxic encephalopathy suspect due to DKA resolved History of polysubstance abuse with a positive urine drug screen for cocaine History of diabetic gastroparesis Present on admission DKA with a high anion gap due to noncompliance with medication Present on admission acute renal failure secondary to severe intravascular volume depletion from hyperglycemia and DKA improving patient may have a component of acute tubular necrosis Present on admission acute renal failure severe intravascular volume depletion with clinical dehydration and hyperkalemia Depressive disorder Type 2 diabetes insulin requiring uncontrolled hemoglobin A1c 10.5 Hyperkalemia secondary to MARI inhibitor resolved Present on admission hypernatremia secondary to IV fluid received a fluid bolus in the ER 500 of saline resolved Hypertension Issues of noncompliance with taking medication and following up as directed Chronic Congestive heart failure diastolic dysfunction EF 60-65% with mild pulmonary hypertension August 2015 echo compensated The above dictated assessment and findings were discussed with dr menjivar Impression and the plan of care have been dictated as directed. Bri Melendez nurse practitioner acting as a scribe for dr menjivar Patient Condition at Discharge: Serious Plan - Discharge Summary New Discharge Prescriptions: amLODIPine [Norvasc] 5 mg PO DAILY #30 tab hydrALAZINE HCL [Apresoline] 50 mg PO BID #60 tab Discharge Medication List Dicyclomine [Bentyl] 20 mg PO QID PRN 03/08/16 [History] Insulin Aspart [NovoLOG] See Protocol SQ AC-TID 03/20/16 [History] Omeprazole [PriLOSEC] 40 mg PO AC-BRKFST #14 capsule. 03/26/16 [Rx] INSULIN LISPRO (humaLOG) [humaLOG (formulary)] 5 unit SQ AC-TID #1 vial [Rx] Lisinopril [Zestril] 10 mg PO DAILY #30 tab 06/19/16 [Rx] Insulin Glargine [Lantus] 35 unit SQ DAILY vial 06/26/16 [Rx] amLODIPine [Norvasc] 5 mg PO DAILY #30 tab 06/26/16 [Rx] hydrALAZINE HCL [Apresoline] 50 mg PO BID #60 tab 06/26/16 [Rx] Follow up Appointment(s)/Referral(s): None,Stated [Primary Care Provider] - 1-2 days Sofia Emanuel MD [STAFF PHYSICIAN] - 06/28/16 Discharge Disposition: HOME WITH HOME HEALTH SERVICES
[2016-06-26] MEDS ORDERED: ONDANSETRON 4 MG TAB PO PRN (14:36)
[2016-06-26 17:06] LABS: Glucose,Whole Blood 120 mg/dL (75-99)
[2016-06-26 21:25] LABS: Glucose,Whole Blood 108 mg/dL (75-99)
[2016-06-27 05:42] LABS: Glucose,Whole Blood 86 mg/dL (75-99)
[2016-06-27 06:25] LABS: Basophils % (A) 1 %; CH 31.8; CHCM 33.6; Eosinophils # (A) 0.1 k/uL (0-0.7); Eosinophils % (A) 2 %; HCT 40.2 % (39.0-53.0); HDW 2.52; HGB 13.1 gm/dL (13.0-17.5); Luc # (Auto) 0.12; Luc % (Auto) 3; Lymphocytes # (A) 1.7 k/uL (1.0-4.8); Lymphocytes % (A) 44 %; MCH 31.1 pg (25.0-35.0); MCHC 32.7 g/dL (31.0-37.0); Mean Platelet Volume 8.2; Monocytes # (A) 0.3 k/uL (0-1.0); Monocytes % (A) 8 %; Neutrophils # (A) 1.6 k/uL (1.3-7.7); Neutrophils % (A) 42 %; RBC 4.22 m/uL (4.30-5.90); RDW 14.3 % (11.5-15.5); WBC 3.9 k/uL (3.8-10.6); WBC (Perox) 3.93
[2016-06-27] MEDS: INSULIN LISPRO (humaLOG) 300 UNIT/3 ML VIAL SQ SCH ×4 (06:27→12:20)
[2016-06-27 06:28] LABS: MCV 95.1 fL (80.0-100.0)
[2016-06-27] MEDS: PANTOPRAZOLE 40 MG TABLET PO SCH (06:37)
[2016-06-27 06:42] LABS: ALT 41 U/L (21-72); AST 34 U/L (17-59); Alkaline Phosphatase 76 U/L (38-126); Anion Gap 7 mmol/L; Blood Urea Nitrogen 12 mg/dL (9-20); Calcium 9.1 mg/dL (8.4-10.2); Carbon Dioxide 27 mmol/L (22-30); Chloride 104 mmol/L (98-107); Glucose 98 mg/dL (74-99); Non-African American GFR(MDRD) >60 (>60 ml/min/1.73 sqM); Sodium 138 mmol/L (137-145); Total Bilirubin 0.9 mg/dL (0.2-1.3); Total Protein 6.2 g/dL (6.3-8.2)
[2016-06-27 06:45] LABS: Potassium 4.4 mmol/L (3.5-5.1)
[2016-06-27] MEDS: hydrALAZINE HCL 50 MG TAB PO SCH (09:43)
[2016-06-27] MEDS: amLODIPine 5 MG TAB PO SCH (09:44)
[2016-06-27 09:58] VITALS: RESP 20; TEMP 98.9
[2016-06-27 11:36] LABS: Glucose,Whole Blood 311 mg/dL (75-99)
[2016-06-27 11:43] VITALS: BP 160/76; PULSE 95
[2016-07-01 08:11] LABS: Glucose,Whole Blood >600 mg/dL (75-99)
== END 2016-06-27 14:27 | disposition home health service (06) | DRG 637 ==
LOC: EC 18:15 → 6SEL 19:36
PROVIDERS: ADMIT Family Medicine; ATTEND Family Medicine
DX: E13.10 Other specified diabetes mellitus with ketoacidosis without coma (principal); G92 Toxic encephalopathy; E87.0 Hyperosmolality and hypernatremia; N17.9 Acute kidney failure, unspecified; I13.0 Hypertensive heart and chronic kidney disease with heart failure and stage 1 through stage 4 chronic kidney disease, or unspecified chronic kidney disease; I50.32 Chronic diastolic (congestive) heart failure; I27.2 Other secondary pulmonary hypertension; K31.84 Gastroparesis; F05 Delirium due to known physiological condition; N18.3 Chronic kidney disease, stage 3 (moderate); E86.0 Dehydration; E11.22 Type 2 diabetes mellitus with diabetic chronic kidney disease; E11.43 Type 2 diabetes mellitus with diabetic autonomic (poly)neuropathy; E87.5 Hyperkalemia; F32.9 Major depressive disorder, single episode, unspecified; M06.9 Rheumatoid arthritis, unspecified; T46.4X5A Adverse effect of angiotensin-converting-enzyme inhibitors, initial encounter; Z79.4 Long term (current) use of insulin; Z82.49 Family history of ischemic heart disease and other diseases of the circulatory system; Z83.3 Family history of diabetes mellitus; Z91.14 Patient's other noncompliance with medication regimen; Z91.19 Patient's noncompliance with other medical treatment and regimen; Z79.899 Other long term (current) drug therapy
CPT/HCPCS: 36415; 80051; 80053; 81003; 82009; 82550; 82553; 82565; 82947; 83036; 83735; 84100; 84484; 84520; 85025; 85610; 85730; 87086; 93005; 96361; 96365; 96366; 96372; 96375; 96376; 99291

== ENCOUNTER 2016-06-29 19:50 | Inpatient (IN) | payer OTHER ==
[2016-06-29] MEDS ORDERED: SODIUM CHLORIDE 0.9% 1,000 ML IV ONE (20:07)
[2016-06-29 20:17] LABS: Glucose,Whole Blood >600 mg/dL (75-99)
--- NOTE | 2016-06-29 20:30 | ED ---
Recheck HPI - General Source: EMS, RN notes reviewed Mode of arrival: EMS Limitations: no limitations <Jenna Munoz - Last Filed: 06/29/16 20:26> <Jaspreet Ibarra - Last Filed: 06/30/16 00:02> - General Chief Complaint: Recheck/Abnormal Lab/Rx Stated Complaint: DKA Symptoms Time Seen by Provider: 06/29/16 20:00 - History of Present Illness Initial Comments: Patient is a 56-year-old male presents to the emergency room for evaluation of high blood sugar. Patient has been here multiple times in DKA. Patient is alert and oriented at this time. Patient states that his blood sugar is high. Patient states that he was just discharged yesterday with medications. Patient states he is supposed to take Humalog and Lantus. Patient states when he got home "my medications were missing". Patient denies chest pain, shortness of breath, headache, dizziness, nausea, vomiting. (Jenna Munoz) - Related Data Home Medications Medication Instructions Recorded Confirmed Dicyclomine [Bentyl] 20 mg PO QID PRN 03/08/16 06/24/16 Insulin Aspart [NovoLOG] See Protocol SQ AC-TID 03/20/16 06/24/16 Previous Rx's Medication Instructions Recorded Omeprazole [PriLOSEC] 40 mg PO AC-BRKFST #14 capsule. 03/26/16 INSULIN LISPRO (humaLOG) [humaLOG 5 unit SQ AC-TID #1 vial 06/03/16 (formulary)] Lisinopril [Zestril] 10 mg PO DAILY #30 tab 06/19/16 Insulin Glargine [Lantus] 35 unit SQ DAILY vial 06/26/16 amLODIPine [Norvasc] 5 mg PO DAILY #30 tab 06/26/16 hydrALAZINE HCL [Apresoline] 50 mg PO BID #60 tab 06/26/16 Allergies Allergy/AdvReac Type Severity Reaction Status Date / Time No Known Allergies Allergy Verified 06/29/16 20:01 Review of Systems ROS Other: All systems not noted in ROS Statement are negative. <Jenna Munoz - Last Filed: 06/29/16 20:26> ROS Other: All systems not noted in ROS Statement are negative. <Jaspreet Ibarra - Last Filed: 06/30/16 00:02> ROS Statement: Those systems with pertinent positive or pertinent negative responses have been documented in the HPI. Past Medical History Past Medical History: Heart Failure, Diabetes Mellitus, Hypertension, Pneumonia , Renal Disease, Rheumatoid Arthritis (RA) Additional Past Medical History / Comment(s): Pt recently admitted 05/31/16 to [facility] with DKA/noncompliance with insulin. Pt is currently not speaking. He opens his eyes on occasion when his name is spoken. No family at bedside. All PMH is from previous medical records. PMH: IDDM type I poorly controlled, diabetic gastroparesis, bilateral feet peripheral neuropathy, blood behind both eyes, peptic ulcer disease/duodenal ulcer/gastritis with erosions, previous hospitalization for pulmonary edema and bilateral pleural effusion and subsequent evaluation showed a preserved LV function with an ejection fraction of around 50%, CKD stage III, normocytic chronic anemia, rheumatoid arthritis, DJD, chronic back pain, osteoarthritis-generalized, eczema, psoriasis, ear infections, hx of narcotic abuse, cocaine abuse and alcohol abuse. History of Any Multi-Drug Resistant Organisms: MRSA Date of last positivie culture/infection: 2007 MDRO Source:: pustual/boil on back of neck Past Surgical History: Adenoidectomy, Tonsillectomy Additional Past Surgical History / Comment(s): colonoscopy 2009, EGD, lt great toe amp, and part of 2nd toe. Past Anesthesia/Blood Transfusion Reactions: No Reported Reaction Past Psychological History: No Psychological Hx Reported Additional Psychological History / Comment(s): Unknown at this time, however [facility] documents that pt is normally independent and uses no assistive device and that pt has been homeless. Smoking Status: Unknown if ever smoked Past Alcohol Use History: None Reported Additional Past Alcohol Use History / Comment(s): PT has STATED in PMH that he DRINKS OCC BUT LESS THAN 14 PER WEEK Past Drug Use History: None Reported Additional Drug Use History / Comment(s): PT PMH stated pt DENIES ANY DRUG USE IN AT LEAST 7-8 YEARS. 06/18/16 toxicology + for cocaine. - Past Family History Father Family Medical History: Diabetes Mellitus, Hypertension Additional Family Medical History / Comment(s): father 2 months ago Mother Additional Family Medical History / Comment(s): pyschiatric issues. She is 76 yrs old. <Jenna Munoz Sindhu - Last Filed: 06/29/16 20:26> General Exam Limitations: no limitations General appearance: alert, in no apparent distress Head exam: Present: atraumatic, normocephalic, normal inspection Eye exam: Present: normal appearance, PERRL, EOMI Pupils: Present: normal accommodation ENT exam: Present: normal exam Neck exam: Present: normal inspection Respiratory exam: Present: normal lung sounds bilaterally. Absent: respiratory distress Cardiovascular Exam: Present: regular rate, normal rhythm, normal heart sounds GI/Abdominal exam: Present: soft, normal bowel sounds. Absent: distended, tenderness, guarding, rebound, rigid Extremities exam: Present: normal inspection Back exam: Present: normal inspection Neurological exam: Present: alert, oriented X3, CN II-XII intact, normal gait Psychiatric exam: Present: normal affect, normal mood Skin exam: Present: warm, dry, intact, normal color. Absent: rash <Daron Munozra L - Last Filed: 06/29/16 20:26> General appearance: alert, in no apparent distress, anxious, lethargic, in distress Head exam: Present: atraumatic, normocephalic, normal inspection Eye exam: Present: normal appearance, PERRL, EOMI. Absent: scleral icterus, conjunctival injection, periorbital swelling ENT exam: Present: mucous membranes dry Neck exam: Present: normal inspection. Absent: tenderness, meningismus, lymphadenopathy Respiratory exam: Present: respiratory distress, accessory muscle use. Absent: wheezes, rales, rhonchi, stridor Cardiovascular Exam: Present: regular rate, normal rhythm, normal heart sounds. Absent: systolic murmur, diastolic murmur, rubs, gallop, clicks GI/Abdominal exam: Present: soft, normal bowel sounds. Absent: distended, tenderness, guarding, rebound, rigid Extremities exam: Present: normal inspection, full ROM, normal capillary refill. Absent: tenderness, pedal edema, joint swelling, calf tenderness Back exam: Present: normal inspection Neurological exam: Present: alert, oriented X3, CN II-XII intact Psychiatric exam: Present: normal affect, normal mood Skin exam: Present: warm, dry, intact, normal color. Absent: rash <Jaspreet Ibarra - Last Filed: 06/30/16 00:02> - General Exam Comments Initial Comments: Laying in exam room, no acute distress. (Jenna Munoz) Procedures - Central Line Placement Right IJ Consent Obtained: verbal consent Time Out Performed: Yes Patient Placed on Monitor/Pulse Ox: Yes MD Prep: mask, gown, gloves Central Line Prep: Povidone-Iodine 1% Local Anesthesia Used: Lidocaine 1% Ultrasound Used for Placement: Yes Central Line Lumen Inserted: triple Bloods Obtained for Lab: Yes Central Line Position: good blood return, all ports aspirated, flushed, capped, sutured in place with nylon Dressing Applied: Tegaderm Post Procedure X-Ray: tip of catheter in good position Patient Tolerated Procedure: well Complications: none <Jaspreet Ibarra - Last Filed: 06/30/16 00:02> Medical Decision Making <Jenna Munoz - Last Filed: 06/29/16 20:26> - Lab Data Result diagrams: 06/29/16 22:42 06/29/16 22:42 <Jaspreet Ibarra - Last Filed: 06/30/16 00:02> - Medical Decision Making 36 now the ER severe diabetic ketoacidosis, patient had centralizer secondary to no IV access, patient lab work his showing severe DKA, patient will be given adequate and significant resuscitation with IV fluids and started on insulin drip. Patient will be admitted for telemetry, acute care and significant left foot monitoring and evaluation. (Jaspreet Ibarra) - Lab Data Lab Results 06/29/16 06/29/16 06/29/16 Range/Units 20:02 20:05 22:42 WBC (3.8-10.6) k/uL RBC (4.30-5.90) m/uL Hgb (13.0-17.5) gm/dL Hct (39.0-53.0) % MCV (80.0-100.0) fL MCH (25.0-35.0) pg MCHC (31.0-37.0) g/dL RDW (11.5-15.5) % Plt Count (150-450) k/uL Neutrophils % % Lymphocytes % % Monocytes % % Eosinophils % % Basophils % % Neutrophils # (1.3-7.7) k/uL Lymphocytes # (1.0-4.8) k/uL Monocytes # (0-1.0) k/uL Eosinophils # (0-0.7) k/uL Basophils # (0-0.2) k/uL Manual Slide Review Hypochromasia Macrocytosis Sodium 130 L (137-145) mmol/L Potassium 5.9 H (3.5-5.1) mmol/L Chloride 91 L (98-107) mmol/L Carbon Dioxide 5 L* (22-30) mmol/L Anion Gap 34 mmol/L BUN 22 H (9-20) mg/dL Creatinine 1.60 H (0.66-1.25) mg/dL Est GFR (MDRD) Af Amer 54 (>60 ml/min/1.73 sqM) Est GFR (MDRD) Non-Af 45 (>60 ml/min/1.73 sqM) Glucose 723 H* (74-99) mg/dL POC Glucose (mg/dL) >600 H (75-99) mg/dL POC Glu Imagery Intelligence ID [place] Calcium 10.0 (8.4-10.2) mg/dL Magnesium 2.2 (1.6-2.3) mg/dL Total Bilirubin 1.1 (0.2-1.3) mg/dL AST 33 (17-59) U/L ALT 44 (21-72) U/L Alkaline Phosphatase 140 H (38-126) U/L Total Creatine Kinase (55-170) U/L CK-MB (CK-2) (0.0-2.4) ng/mL CK-MB (CK-2) Rel Index Troponin I (0.000-0.034) ng/mL Total Protein 7.9 (6.3-8.2) g/dL Albumin 4.6 (3.5-5.0) g/dL Urine Color Colorless Urine Appearance Clear (Clear) Urine pH 5.0 (5.0-8.0) Ur Specific [place] 1.020 (1.001-1.035) Urine Protein Negative (Negative) Urine Glucose (UA) 4+ H (Negative) Urine Ketones 3+ H (Negative) Urine Blood Negative (Negative) Urine Nitrate Negative (Negative) Urine Bilirubin Negative (Negative) Urine Urobilinogen <2.0 (<2.0) mg/dL Ur Leukocyte Esterase Negative (Negative) Urine Opiates Screen Not Detected (NotDetected) Ur Oxycodone Screen Not Detected (NotDetected) Urine Methadone Screen Not Detected (NotDetected) Ur Propoxyphene Screen Not Detected (NotDetected) Ur Barbiturates Screen Not Detected (NotDetected) U Tricyclic Antidepress Not Detected (NotDetected) Ur Phencyclidine Scrn Not Detected (NotDetected) Ur Amphetamines Screen Not Detected (NotDetected) U Methamphetamines Scrn Not Detected (NotDetected) U Benzodiazepines Scrn Not Detected (NotDetected) Urine Cocaine Screen Detected H (NotDetected) U Marijuana (THC) Screen Not Detected (NotDetected) 06/29/16 06/29/16 06/29/16 Range/Units 22:42 22:42 23:20 WBC 5.3 (3.8-10.6) k/uL RBC 4.64 (4.30-5.90) m/uL Hgb 14.8 (13.0-17.5) gm/dL Hct 50.5 (39.0-53.0) % MCV 108.9 H D (80.0-100.0) fL MCH 32.0 (25.0-35.0) pg MCHC 29.4 L (31.0-37.0) g/dL RDW 13.6 (11.5-15.5) % Plt Count 263 (150-450) k/uL Neutrophils % 46 % Lymphocytes % 42 % Monocytes % 6 % Eosinophils % 2 % Basophils % 1 % Neutrophils # 2.5 (1.3-7.7) k/uL Lymphocytes # 2.2 (1.0-4.8) k/uL Monocytes # 0.3 (0-1.0) k/uL Eosinophils # 0.1 (0-0.7) k/uL Basophils # 0.0 (0-0.2) k/uL Manual Slide Review Performed Hypochromasia Marked Macrocytosis Marked Sodium (137-145) mmol/L Potassium (3.5-5.1) mmol/L Chloride (98-107) mmol/L Carbon Dioxide (22-30) mmol/L Anion Gap mmol/L BUN (9-20) mg/dL Creatinine (0.66-1.25) mg/dL Est GFR (MDRD) Af Amer (>60 ml/min/1.73 sqM) Est GFR (MDRD) Non-Af (>60 ml/min/1.73 sqM) Glucose (74-99) mg/dL POC Glucose (mg/dL) >600 H (75-99) mg/dL POC Glu Imagery Intelligence ID [place] Calcium (8.4-10.2) mg/dL Magnesium (1.6-2.3) mg/dL Total Bilirubin (0.2-1.3) mg/dL AST (17-59) U/L ALT (21-72) U/L Alkaline Phosphatase (38-126) U/L Total Creatine Kinase 153 (55-170) U/L CK-MB (CK-2) 4.1 H* (0.0-2.4) ng/mL CK-MB (CK-2) Rel Index 2.7 Troponin I 0.029 (0.000-0.034) ng/mL Total Protein (6.3-8.2) g/dL Albumin (3.5-5.0) g/dL Urine Color Urine Appearance (Clear) Urine pH (5.0-8.0) Ur Specific [place] (1.001-1.035) Urine Protein (Negative) Urine Glucose (UA) (Negative) Urine Ketones (Negative) Urine Blood (Negative) Urine Nitrate (Negative) Urine Bilirubin (Negative) Urine Urobilinogen (<2.0) mg/dL Ur Leukocyte Esterase (Negative) Urine Opiates Screen (NotDetected) Ur Oxycodone Screen (NotDetected) Urine Methadone Screen (NotDetected) Ur Propoxyphene Screen (NotDetected) Ur Barbiturates Screen (NotDetected) U Tricyclic Antidepress (NotDetected) Ur Phencyclidine Scrn (NotDetected) Ur Amphetamines Screen (NotDetected) U Methamphetamines Scrn (NotDetected) U Benzodiazepines Scrn (NotDetected) Urine Cocaine Screen (NotDetected) U Marijuana (THC) Screen (NotDetected) Critical Care Time Critical Care Time: Yes Total Critical Care Time: 65 <Jaspreet Ibarra - Last Filed: 06/30/16 00:02> Disposition <Jenna Munoz - Last Filed: 06/29/16 20:26> <Jaspreet Ibarra - Last Filed: 06/30/16 00:02> Clinical Impression: DKA (diabetic ketoacidoses), Altered mental status, Abdominal pain, Dehydration , Acute renal failure Disposition: ADMITTED IP TO THIS [facility] Condition: Serious Referrals: Nimesh De Luna MD [Primary Care Provider] - 1-2 days
[2016-06-29 21:28] LABS: Appearance,Urine Clear (Clear); Bilirubin,Urine Negative (Negative); Glucose,Urine (UA) 4+ (Negative); Leukocyte Esterase,Urine Negative (Negative); Nitrite,Urine Negative (Negative); Protein,Urine Negative (Negative); UA Billing (MACRO vs. MICRO) CHEM; Urobilinogen,Urine <2.0 mg/dL (<2.0)
[2016-06-29 21:48] LABS: Ketones,Urine 3+ (Negative)
[2016-06-29] MEDS ORDERED: INSULIN REGULAR 100 UNIT/ML VIAL SQ STA (22:00)
[2016-06-29] MEDS ORDERED: ONDANSETRON ODT 4 MG TAB PO STA (22:24)
[2016-06-29 23:15] LABS: ALT 44 U/L (21-72); AST 33 U/L (17-59); Alkaline Phosphatase 140 U/L (38-126); Anion Gap 34 mmol/L; Blood Urea Nitrogen 22 mg/dL (9-20); Chloride 91 mmol/L (98-107); Magnesium 2.2 mg/dL (1.6-2.3); Non-African American GFR(MDRD) 45 (>60 ml/min/1.73 sqM); Potassium 5.9 mmol/L (3.5-5.1); Sodium 130 mmol/L (137-145); Total Bilirubin 1.1 mg/dL (0.2-1.3); Total Protein 7.9 g/dL (6.3-8.2)
[2016-06-29 23:18] LABS: Basophils % (A) 1 %; CH 30.2; CHCM 27.9; Eosinophils # (A) 0.1 k/uL (0-0.7); Eosinophils % (A) 2 %; HCT 50.5 % (39.0-53.0); HGB 14.8 gm/dL (13.0-17.5); Hypochromasia Marked; Luc # (Auto) 0.18; Luc % (Auto) 3; Lymphocytes # (A) 2.2 k/uL (1.0-4.8); Lymphocytes % (A) 42 %; MCHC 29.4 g/dL (31.0-37.0); Macrocytosis Marked; Monocytes # (A) 0.3 k/uL (0-1.0); Monocytes % (A) 6 %; Neutrophils # (A) 2.5 k/uL (1.3-7.7); Neutrophils % (A) 46 %; RBC 4.64 m/uL (4.30-5.90); RDW 13.6 % (11.5-15.5); WBC 5.3 k/uL (3.8-10.6); WBC (Perox) 5.59
[2016-06-29 23:22] LABS: Glucose,Whole Blood >600 mg/dL (75-99)
[2016-06-29 23:24] LABS: Carbon Dioxide 5 mmol/L (22-30); Glucose 723 mg/dL (74-99); MCV 108.9 fL (80.0-100.0)
[2016-06-29 23:45] LABS: Troponin I 0.029 ng/mL (0.000-0.034)
[2016-06-29 23:52] LABS: Creatine Kinase MB 4.1 ng/mL (0.0-2.4)
[2016-06-29 23:54] LABS: Manual Review Performed
[2016-06-30] MEDS ORDERED: LORazepam 2 MG/ML SYRINGE IV STA (00:02)
[2016-06-30] MEDS ORDERED: ONDANSETRON 4 MG/2 ML VIAL IVP STA (00:02)
[2016-06-30] MEDS ORDERED: LORazepam 2 MG/ML SYRINGE IV PRN (00:02)
[2016-06-30] MEDS ORDERED: ONDANSETRON 4 MG/2 ML VIAL IVP PRN (00:02)
[2016-06-30] MEDS ORDERED: SODIUM CHLORIDE 0.9% 2,000 ML IV STA (00:02)
[2016-06-30] MEDS ORDERED: PANTOPRAZOLE 40 MG/10 ML VIAL IVP STA (00:02)
[2016-06-30] MEDS ORDERED: INSULIN REGULAR BOLUS (FROM DRIP BAG) IV ONE (00:02)
[2016-06-30] MEDS ORDERED: SODIUM CHLORIDE 0.9% 1,000 ML IV STA ×2 (00:02)
[2016-06-30] MEDS ORDERED: SODIUM CHLORIDE 0.9% 1,000 ML IV ONE (00:02)
[2016-06-30] MEDS ORDERED: MORPHINE SULFATE 4 MG/ML SYRINGE IVP STA (00:02)
[2016-06-30] MEDS ORDERED: SODIUM BICARB 8.4% 50 ML SYR (1 MEQ/ML) IV STA ×2 (00:04)
[2016-06-30] MEDS ORDERED: INSULIN REGULAR 100 UNIT in SODIUM CHLORIDE 0.9% 100 ML IV SCH (00:15)
[2016-06-30 00:36] LABS: Glucose,Whole Blood 429 mg/dL (75-99)
[2016-06-30 02:54] LABS: Glucose,Whole Blood 271 mg/dL (75-99)
[2016-06-30 03:47] LABS: Glucose,Whole Blood 174 mg/dL (75-99)
[2016-06-30 04:23] LABS: Anion Gap 16 mmol/L; Blood Urea Nitrogen 19 mg/dL (9-20); Carbon Dioxide 18 mmol/L (22-30); Chloride 104 mmol/L (98-107); Glucose 152 mg/dL (74-99); Non-African American GFR(MDRD) 57 (>60 ml/min/1.73 sqM); Phosphorous 2.5 mg/dL (2.5-4.5); Potassium 4.6 mmol/L (3.5-5.1); Sodium 138 mmol/L (137-145)
[2016-06-30] MEDS: SODIUM CHLORIDE 0.9% 1,000 ML IV SCH ×3 (04:37→11:00)
[2016-06-30 04:45] LABS: Glucose,Whole Blood 143 mg/dL (75-99)
[2016-06-30 05:23] LABS: INR 1.1 (<1.1); Partial Thromboplastin Time 22.2 sec (22.0-30.0)
[2016-06-30 05:49] LABS: Glucose,Whole Blood 126 mg/dL (75-99)
[2016-06-30 06:30] LABS: Glucose,Whole Blood 123 mg/dL (75-99)
[2016-06-30 07:30] LABS: Glucose,Whole Blood 128 mg/dL (75-99)
[2016-06-30 08:38] LABS: Glucose,Whole Blood 113 mg/dL (75-99)
[2016-06-30 08:55] LABS: Anion Gap 10 mmol/L; Blood Urea Nitrogen 18 mg/dL (9-20); Carbon Dioxide 22 mmol/L (22-30); Chloride 104 mmol/L (98-107); Glucose 125 mg/dL (74-99); Non-African American GFR(MDRD) >60 (>60 ml/min/1.73 sqM); Phosphorous 2.7 mg/dL (2.5-4.5); Potassium 4.8 mmol/L (3.5-5.1); Sodium 136 mmol/L (137-145)
[2016-06-30] MEDS ORDERED: D5-0.45% NACL WITH KCL 20MEQ/L 1,000 ML IV SCH (09:00)
[2016-06-30] MEDS ORDERED: DICYCLOMINE 20 MG TAB PO PRN (09:48)
[2016-06-30 09:55] LABS: Glucose,Whole Blood 129 mg/dL (75-99)
[2016-06-30] MEDS ORDERED: NON-FORMULARY DRUG (Omeprazole 40 MG) PO SCH (10:00)
[2016-06-30] MEDS: INSULIN GLARGINE 100 UNIT/ML 10 ML VIAL SQ SCH (10:45)
[2016-06-30] MEDS: hydrALAZINE HCL 50 MG TAB PO SCH ×2 (10:45→20:34)
[2016-06-30] MEDS: LISINOPRIL 10 MG TAB PO SCH (10:46)
[2016-06-30] MEDS: amLODIPine 5 MG TAB PO SCH (10:46)
[2016-06-30] MEDS: INSULIN LISPRO (humaLOG) 300 UNIT/3 ML VIAL SQ SCH ×5 (12:47→20:40)
[2016-06-30] MEDS: METOCLOPRAMIDE 10 MG TAB PO SCH ×3 (12:56→20:35)
[2016-06-30 14:06] LABS: Hemoglobin A1C 10.7 % (4.2-6.1)
--- NOTE | 2016-06-30 15:50 | HP ---
DATE OF ADMISSION: Chief complaint is a 56-year-old male, admitted with DKA. HISTORY OF PRESENT ILLNESS: This is 56-year-old white male admitted with elevated blood sugar, multiple times with DKA has been admitted. Discharged yesterday with medicines, subQ Humalog and Lantus. His medicines are missing, so he did not take them. Came in today with DKA and says he has vomiting every time he eats food. Home medications include: 1. Bentyl 20 mg q.i.d. 2. NovoLog a.c. and at bedtime. 3. Omeprazole. 4. Zestril 10 mg daily. 5. Lantus 35 units subQ daily. 6. Norvasc 5 mg daily. 7. Apresoline 50 mg b.i.d. ALLERGIES: Negative. REVIEW OF SYSTEMS: GI: Vomiting with any food intake. VASCULAR: Negative. IMMUNE: Negative. INTEGUMENT: Negative. ENDOCRINE: Negative as mentioned above. : Negative. PAST MEDICAL HISTORY: Heart failure, diabetes mellitus, hypertension, pneumonia, renal disease, rheumatoid arthritis, recently discharged with diabetic ketoacidosis from the hospital. He has stage III renal disease, noncompliance . History of nicotine abuse, cocaine abuse, and alcohol abuse. History of MRSA. SURGERIES: Appendectomy, tonsillectomy, colonoscopy in 2008, EGD, left great toe amputation. Alcohol, occasional but less than 14 per week. Father had diabetes mellitus, hypertension, father 2 months ago, mother with psychiatric issues. This is a thin, cachectic, male: HEAD: Normocephalic, atraumatic. CARDIAC: S1, S2. LUNGS: Clear. GI: Soft. HEMATOLOGIC: Negative Homans. PSYCH : Fair mood and affect. DERMATOLOGIC: Dry skin. LABS: On admission, sodium was 130, potassium 5.9, BUN 22, creatinine 1.6. ASSESSMENT: 1. Acute diabetic ketoacidosis. 2. Dehydration. Patient is more improved at this time. We switched back over to Accu-Chek a.c. and at bedtime. Continue with fluid rehydration, Reglan for vomiting. Will check ( ) medications, home medicines. He is back as Accu-Chek a.c. and at bedtime and home medicines. die lay out worker will be consulted for discharge care. Possible legal guardian if he keeps coming to the hospital.
[2016-06-30 16:34] LABS: Glucose,Whole Blood 137 mg/dL (75-99)
[2016-06-30 20:28] LABS: Glucose,Whole Blood 219 mg/dL (75-99)
[2016-06-30] MEDS: MORPHINE SULFATE 4 MG/ML SYRINGE IVP PRN (20:33)
[2016-06-30] MEDS ORDERED: traMADol 50 MG TAB PO PRN (21:22)
[2016-07-01] MEDS: MORPHINE SULFATE 4 MG/ML SYRINGE IVP PRN ×2 (00:17→06:48)
[2016-07-01 06:14] LABS: Glucose,Whole Blood 153 mg/dL (75-99)
[2016-07-01] MEDS: METOCLOPRAMIDE 10 MG TAB PO SCH ×4 (06:47→21:31)
[2016-07-01] MEDS: INSULIN LISPRO (humaLOG) 300 UNIT/3 ML VIAL SQ SCH ×7 (07:26→21:04)
[2016-07-01] MEDS: hydrALAZINE HCL 50 MG TAB PO SCH ×2 (07:53→21:31)
[2016-07-01] MEDS: amLODIPine 5 MG TAB PO SCH (07:53)
[2016-07-01] MEDS: LISINOPRIL 10 MG TAB PO SCH (07:53)
[2016-07-01 08:18] LABS: Glucose,Whole Blood 338 mg/dL (75-99)
[2016-07-01 08:18] LABS: Glucose,Whole Blood 212 mg/dL (75-99)
[2016-07-01] MEDS: INSULIN GLARGINE 100 UNIT/ML 10 ML VIAL SQ SCH (08:43)
[2016-07-01] MEDS ORDERED: PANTOPRAZOLE 40 MG/10 ML VIAL IVP SCH (09:00)
[2016-07-01 11:53] LABS: Glucose,Whole Blood 239 mg/dL (75-99)
[2016-07-01 14:16] VITALS: BMI 22.7
[2016-07-01] MEDS: HYDROcodone/APAP 5-325MG 1 EACH TAB PO PRN ×2 (16:17→21:31)
[2016-07-01 16:59] LABS: Glucose,Whole Blood 165 mg/dL (75-99)
--- NOTE | 2016-07-01 17:20 | P.PN ---
Subjective 56-year-old being seen on rounds. Patient is asking for more pain medication states he hurts all over and that whenever he comes in the hospital he is given [place] tens. Patient's blood sugar this morning 137 high was 219. Patient's insulin has been adjusted for better glycemic control. professional development manager is pursuing the discharge plan. Will ask psychiatric service to see the patient to evaluate whether the patient is competent to make healthcare decisions given that the patient has had frequent readmissions to the hospital for reoccurring DKA secondary to not compliant with taking the insulin as directed. Objective - Vital Signs Vital signs: Vital Signs Temp 97.3 F L 07/01/16 15:00 Pulse 89 07/01/16 15:00 Resp 16 07/01/16 15:00 BP 100/63 07/01/16 15:00 Pulse Ox 98 07/01/16 15:00 Intake & Output 06/30/16 07/01/16 07/01/16 18:59 06:59 18:59 Intake Total 361.16 600 790 Output Total 675 675 Balance -313.84 600 115 Weight 69.8 kg 69.8 kg Intake: Intake, IV Titration 1.16 Amount Insulin Regular 100 unit 1.16 In Sodium Chloride 0.9% 100 ml @ 0.1 UNITS/KG/HR 7.78 mls/hr IV .[id number] [facility] Rx#:[id number] Oral 360 600 790 Output: Urine 675 675 Other: Voiding Method Toilet Toilet # Voids 2 1 - Exam Physical exam 56-year-old male resting in bed appears in no acute distress Lungs essentially clear adequate air movement Heart S1-S2 audible regular Abdomen soft nontender Extremities no edema - Labs CBC & Chem 7: 06/29/16 22:42 06/30/16 07:55 Labs: Abnormal Lab Results - Last 24 Hours (Table) 06/30/16 06/30/16 06/30/16 Range/Units 01:31 11:29 20:26 POC Glucose (mg/dL) 338 H 212 H 219 H (75-99) mg/dL 07/01/16 07/01/16 07/01/16 Range/Units 06:13 11:39 16:57 POC Glucose (mg/dL) 153 H 239 H 165 H (75-99) mg/dL Assessment and Plan Plan: Impression Present on admission hyperglycemic with DKA Type 2 diabetes insulin requiring uncontrolled hemoglobin A1c 10.5 Issues of noncompliance with taking medication and following up as directed Chronic congestive heart failure diastolic dysfunction EF 60-65% with mild pulmonary hypertension echocardiogram August 2015 History of diabetic gastroparesis History of polysubstance drug abuse with a positive urine drug screen for cocaine 06/18/2016 Drug-seeking behavior Hypertension Frequent reoccurring admissions for DKA secondary to noncompliant with taking insulin as directed with poor insight and healthcare Plan Await for psych eval deemed competency patient is felt to be incompetent social welfare research worker will pursue guardianship Prepped for probable discharge in the next 24 hours Monitor blood sugars and address as indicated the insulin Resume home meds as appropriate DVT and GI prophylaxis The above dictated assessment and findings were discussed with dr menjivar. Impression and the plan of care have been dictated as directed. Bri Melendez nurse practitioner acting as a scribe for aaron menjivar
[2016-07-01 20:58] LABS: Glucose,Whole Blood 87 mg/dL (75-99)
[2016-07-02] MEDS: HYDROcodone/APAP 5-325MG 1 EACH TAB PO PRN ×5 (00:54→22:04)
[2016-07-02 02:15] LABS: Glucose,Whole Blood 74 mg/dL (75-99)
[2016-07-02 07:03] LABS: Glucose,Whole Blood 35 mg/dL (75-99)
[2016-07-02] MEDS: INSULIN LISPRO (humaLOG) 300 UNIT/3 ML VIAL SQ SCH ×4 (07:27→21:30)
[2016-07-02 07:34] LABS: Glucose,Whole Blood 67 mg/dL (75-99)
[2016-07-02] MEDS: LISINOPRIL 10 MG TAB PO SCH (07:50)
[2016-07-02] MEDS: METOCLOPRAMIDE 10 MG TAB PO SCH ×4 (07:50→21:34)
[2016-07-02] MEDS: hydrALAZINE HCL 50 MG TAB PO SCH ×2 (07:50→21:34)
[2016-07-02] MEDS: amLODIPine 5 MG TAB PO SCH (07:50)
[2016-07-02 07:51] LABS: Glucose,Whole Blood 99 mg/dL (75-99)
[2016-07-02 11:14] LABS: Glucose,Whole Blood 335 mg/dL (75-99)
--- NOTE | 2016-07-02 11:37 | P.CN ---
Psychiatric Consult - . Consult date: 07/02/16 Consult:: IDENTIFYING DATA: Mr. Krueger is a 56-year-old -Israeli male with insulin- dependent diabetes mellitus who was readmitted to medicine service with DKA 3 days after discharge for the same diagnosis. His attending consulted psychiatry concerned that the readmission may be related to cognitive or emotional problems affecting his ability to care for himself. HISTORY OF PRESENT ILLNESS: This is his 15th admission andin the last 12 months including the 12th admission for the treatment of DKA. We discharged him on 01/2017 with the diagnoses of DKA. At the time of discharge his POC glucose was 311 MG/DL. He had an appointment with Dr. Emanuel and 06/28/2016 that he did not keep. He stated he was doing well after he left the hospital on 07/07/2016. However, when he returned home he found his home in disarray as though someone had gone his room looking for valuables. He discovered that his diabetic medication and syringes were missing. He believes a roommate may have taken the diabetic medications and syringes. He did not contact his physician or attempt to obtain replacement diabetic medications. He believed that his insurance would not pay for replacement medication and syringes. He did not make an effort to contact the pharmacy to verify whether he may receive a emergency replacement of the diabetic medications. He went several days without medications; eventually calling emergency medical services when he became acutely ill. We talked about his frequent admissions for DKA. He appeared to understand that he has an insulin-dependent diabetes and requires insulin to manage his illness. He boasted that he has had diabetes since she was "17 years old" and does "knows" how to manage his illness. He explained the frequent readmissions as a natural consequence of his "brittle" diabetes. He was able to explain that his hospitalization was result of not taking his insulin. PAST PSYCHIATRIC HISTORY: He denied history of psychiatric hospitalizations. He is met with "counselors" in the past but denied receiving sustained psychiatric or mental health treatment. SOCIAL HISTORY: He was born and raised in [facility]. He graduated from high school. After his divorce he raised his 4 children. 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. He is not held gainful employment in several years and currently receives social security disability due to his diabetes. MENTAL STATUS EXAM: He presented as a casually groomed 56-year-old - Israeli male who was pleasant on approach. He maintained eye contact and attended to the interview. He had no distinguishing features or prominent physical abnormalities. He had a blunted but bright facial expression. He was alert and oriented to person, place and time. He showed no abnormality of psychomotor activity. He had no abnormal movements. His speech was spontaneous with normal rate, rhythm and volume. He had no articulation difficulties. His affect was blunted but stable and appropriate. He denied suicidal ideation or wishes. He denied homicidal ideation. He denied depressive cognitions such as hopelessness, helplessness or worthlessness. He did not express obsessions, ruminations, phobias or ideas reference. He did not express paranoid ideation. His thinking was concrete because associations were coherent and logical. He denied hallucinations and did not appear to be responding to internal stimuli. We completed the Mini-Mental State Exam. His clothes score was 24/30; score less than 27 issues he consistent with impaired cognitive functioning. He knew the date, the day, the month, the year and the season. He was oriented to country, state, [facility], hospital in [place]. He is able to register 3 memory words (augie, table and coin). He was unable to spell the word "world" backwards (he made 2 attempts beginning each with the letters "d" and "o" then finding it difficult to complete the task). He remembered 2 of the 3 memory words ("coin" and "table". He successfully named a pen and a dawkins. He repeatedly phrase, "No ifs, ands or buts" correctly. He was able to follow 3 stage command, read and follow a written sentence (" "tries") and copy the intersecting pentagrams diagram. His sentence containing the subject but no verbal ("A full with a problem") IMPRESSIONS: He is a an insulin-dependent diabetic with multiple hospitalizations as a result of poor compliance with his diabetic regimen. He was readmitted with the diagnoses of DKA 3 days after discharge from the same diagnosis. He attributed the readmission to the loss of his insulin. He appears to lives in an unsecured flat with 2 roommates one whom may have a substance use problem. After he discovered his missing diabetic medications, he did not make an effort to obtain a replacement. On formal mental status testing he showed cognitive impairments but not to severity that would warrant a diagnosis of dementia. He definitely has impaired problem-solving skills. As far as his decision-making capacity he understands his illness, the need for medical treatment and the consequences of not following through with his diabetic treatment regimen. However, he was unable to articulate an option for obtaining replacement medications other than waiting until he becomes ill and requires inpatient medical care. RECOMMENDATION: He does not meet full relevant criteria for lack of decision making capacity. However he has impaired problem solving and evidence of cognitive impairment. As noted during the prior admission he would benefit from case management. I suspect that social and cultural issues may impede successful case management. Consider enlisting support of family. He is close to his second old son.
--- NOTE | 2016-07-02 13:22 | PN ---
A 56-year-old male who has had low blood sugars in the 30s this morning. I reviewed his diet, diet is good according to the nurse. Cut back on his insulin of Lantus 35 down to 20 units at night and cut out his 5 units per meal. Going to do Accu-Cheks protocols at this time. No 5 units will be given with his meals. He will be monitored. Guardian is being placed for him at this time. Per social sciences department chair, trying to find someone to be his guardian. CARDIOVASCULAR: S1, S2. LUNGS: Clear. GI: Soft. ASSESSMENT: 1. Diabetic ketoacidosis. 2. Generalized debility. 3. Hypertension. 4. Hypoglycemia. 5. Status post diabetic ketoacidosis. 6. Type 1 diabetes mellitus. 7. Noncompliance with outpatient care. Blood pressure appears stable 114 to 127 over 50's to 60s, 97% on room air oxygen level. Continue current treatment with guardian placement and monitor sugars for another 24 hours.
--- NOTE | 2016-07-02 13:50 | CDI ---
In responding to this query, please exercise your independent professional judgment. The [facility] Coding Staff and Clinical Documentation Specialists appreciate your assistance in clarifying documentation, maintaining compliance with coding guidelines, accurately documenting patients condition and capturing severity of illness. The fact that a question is asked does not imply that any particular answer is desired or expected. Communication forms are a method of clarifying documentation and are not made part of the Legal Health Record. Thank you in advance for your clarification. Last Revision, March 2015 Dm Gomez [address] [facility] [place] [address] Documentation Clarification Form Date: 07/02/2016 1:42:00 PM From: Rhea Talbot CCS, CCDS Admit Date: 06/30/2016 12:03:00 AM Patient Name: Rigo Krueger Visit Number: [id number] Discharge Date: Dr. Nimesh De Luna: 56 yo male, readmit with DKA, per the ER documentation, the patient has DM type I, per the H&P, the patient has DM type II Clinical Indicators: Presented with high blood sugar, has had multiple admissions for DKA. Recent discharge 06/25/16. Patient is known to be noncompliant with his Insulin. Treatment: IV fluid bolus x3, IV fluids, Insulin sc, Insulin drip, IV Zofran, IV Ativan, IV Protonix, IV NaBicarb. In order to capture the severity of Illness and necessary documentation specificity, please clarify: DM Type 1 DM Type 2 DM due to underlying condition, specify (e.g. Cushings syndrome) Drug/chemical induced DM (document the drug/chemical) Unable to Determine Other Condition Please document any body system complications or specific manifestations related to the diabetes: Diabetic Nephropathy Diabetic Autonomic Neuropathy Diabetic Amyotrophy Diabetic Peripheral Vascular Disease Proliferative diabetic retinopathy with macular edema Diabetic foot ulcers, specify location Ketoacidosis Hypoglycemia with or without coma Hyperglycemia Hyperosmolarity Coma/nonketotic hyperglycemic-hyperosmolar coma Other condition Please document in your progress notes and discharge summary in order to capture severity of illness and risk of mortality. Include clinical findings that support your diagnosis. FYI: Press F11 to launch patient chart. Place X here if this finding has no clinical significance, is not applicable or if you are not able to provide any additional documentation. Thank You. SENG
[2016-07-02 17:18] LABS: Glucose,Whole Blood 48 mg/dL (75-99)
[2016-07-02 17:40] LABS: Glucose,Whole Blood 93 mg/dL (75-99)
[2016-07-02] MEDS ORDERED: SODIUM CHLORIDE 0.9% 1,000 ML IV SCH (20:00)
[2016-07-02 20:30] LABS: Glucose,Whole Blood 232 mg/dL (75-99)
[2016-07-02] MEDS ORDERED: INSULIN GLARGINE 100 UNIT/ML 10 ML VIAL SQ SCH (21:00)
[2016-07-03 02:03] LABS: Glucose,Whole Blood 243 mg/dL (75-99)
[2016-07-03 07:08] LABS: Glucose,Whole Blood 95 mg/dL (75-99)
[2016-07-03 07:41] VITALS: BP 132/73; PULSE 75; RESP 20; TEMP 98.3
[2016-07-03] MEDS: INSULIN LISPRO (humaLOG) 300 UNIT/3 ML VIAL SQ SCH ×2 (08:33→12:00)
--- NOTE | 2016-07-03 08:55 | P.DS ---
Providers Date of admission: 06/30/16 00:03 Expected date of discharge: 07/03/16 Attending physician: Nimesh De Luna Consults: 07/01/16 08:59 Consult Physician Urgent Consulting Provider: Nimesh Reynolds Reason/Comments: ? competency Do you want consulting provider notified?: Yes Primary care physician: [facility] Course: 56-year-old Afro-Austrian male who presented to the emergency room on the 30 of June with an elevated blood sugar. Patient was just discharged on June 26 at that visit was treated for DKA was discharged home stated that he got home. He discovered that someone had gone through his room looking for valuables and his diabetic medication and syringes were missing. He thought his roommate may have taken his diabetic medication and syringes. He did not contact his physician or attempt to obtain replacement of his diabetic medication. He believed his insurance would not pay for replacement of medication or syringes. He did not make an effort to contact pharmacy to verify that he may receive emergency replacement of the diabetic medication. He went several days without his medication eventually called EMS when he became acutely ill. It is noted that this patient has had 15 admissions in the last 12 months including 12 admissions for the treatment of DKA. As mentioned the patient was discharged on June 27 at that time treated for a diagnosis of DKA. He had an appointment on June [address] emanuel in which he did not keep. Subsequent the patient was admitted this admission to the attending. I psychiatric eval was requested. The concern was for the readmissions could be related to cognitive or emotional problems affecting his ability to care for himself the mental health service did see the patient on the . The patient did not meet full criteria for lack of decision-making capacity. However they felt he did have impaired problem solving and evidence of cognitive impairment. Patient may benefit from social support. Patient is close to a second son consider enlisting support of the family. The last admission home care was set up by the case making machine operator they indicate that home care was set up and at home care made 5 temps to connect unsuccessfully It's noted that the patient does have a history of substance abuse. The last urine drug screen on 06/18/2016 was positive for cocaine this admission the insulin was adjusted for better glycemic control at the time of discharge the patient was to take Lantus 25 units at bedtime with no Humalog sliding scale. international manager did set up home care. The community health educator the nursing staff and the attending did reinforce to the patient that if he had trouble getting his insulin or his supplies he was to contact a healthcare provider The day of discharge patient was felt to be appropriate to be discharged home Impression discharge diagnosis Impression Present on admission hyperglycemic with DKA likely due to not taking insulin for several days Type 1 diabetes insulin requiring uncontrolled hemoglobin A1c 10.5 onset age 17 Issues of noncompliance with taking medication and following up as directed Chronic congestive heart failure diastolic dysfunction EF 60-65% with mild pulmonary hypertension echocardiogram August 2015 History of diabetic gastroparesis History of polysubstance drug abuse with a positive urine drug screen for cocaine 06/18/2016 Drug-seeking behavior Hypertension Frequent reoccurring admissions for DKA secondary to noncompliant with taking insulin as directed with poor insight and healthcare History of alcoholism Type 1 diabetes unable to determine with episodes of hyperglycemia and hypoglycemia without coma suspect diabetic peripheral vascular disease The above dictated assessment and findings were discussed with Dr. De Luna Impression and the plan of care have been dictated as directed. Bri Melendez nurse practitioner acting as a scribe for Dr. De Luna Patient Condition at Discharge: Serious Plan - Discharge Summary New Discharge Prescriptions: Metoclopramide [Reglan] 10 mg PO ACHS #120 tab Discharge Medication List Dicyclomine [Bentyl] 20 mg PO QID PRN 03/08/16 [History] Omeprazole [PriLOSEC] 40 mg PO AC-BRKFST #14 capsule. 03/26/16 [Rx] Lisinopril [Zestril] 10 mg PO DAILY #30 tab 06/19/16 [Rx] amLODIPine [Norvasc] 5 mg PO DAILY #30 tab 06/26/16 [Rx] hydrALAZINE HCL [Apresoline] 50 mg PO BID #60 tab 06/26/16 [Rx] INSULIN LISPRO (humaLOG) [humaLOG (formulary)] 0 unit SQ ACHS vial 07/03/16 [Rx ] Insulin Glargine [Lantus] 25 unit SQ HS vial 07/03/16 [Rx] Metoclopramide [Reglan] 10 mg PO ACHS #120 tab 07/03/16 [Rx] Follow up Appointment(s)/Referral(s): Nimesh De Luna MD [Primary Care Provider] - 1-2 days [facility], [NON-STAFF] - Sofia Emanuel MD [STAFF PHYSICIAN] - 07/04/16 Activity/Diet/Wound Care/Special Instructions: Diabetic education was provided patient was seen by the community health educator this admission Patient was seen by the community health educator this admission as well diabetic education provided Care Plan Goals (MU): Stress to the patient that if he ran out of his insulin or supplies he was to contact his PCP immediately Discharge Disposition: HOME WITH HOME HEALTH SERVICES
[2016-07-03] MEDS: LISINOPRIL 10 MG TAB PO SCH (09:01)
[2016-07-03] MEDS: amLODIPine 5 MG TAB PO SCH (09:01)
[2016-07-03] MEDS: METOCLOPRAMIDE 10 MG TAB PO SCH ×2 (09:01→12:01)
[2016-07-03] MEDS: hydrALAZINE HCL 50 MG TAB PO SCH (09:02)
[2016-07-03 11:11] LABS: Glucose,Whole Blood 306 mg/dL (75-99)
== END 2016-07-03 12:45 | disposition home health service (06) | DRG 638 ==
LOC: EC 19:50 → SUPCPDRO 19:50 → 6SEL 06-30 00:03 → 5MS5E 07-01 10:43 → 5ONC 07-03 00:55
PROVIDERS: ADMIT Family Medicine; ATTEND Family Medicine
PROC: 05HM33Z Insertion of Infusion Device into Right Internal Jugular Vein, Percutaneous Approach (ICD-10-PCS; principal; 2016-06-30)
PROC: B543ZZA Ultrasonography of Right Jugular Veins, Guidance (ICD-10-PCS; 2016-06-30)
DX: E10.10 Type 1 diabetes mellitus with ketoacidosis without coma (principal); I50.32 Chronic diastolic (congestive) heart failure; N17.9 Acute kidney failure, unspecified; K31.84 Gastroparesis; I13.0 Hypertensive heart and chronic kidney disease with heart failure and stage 1 through stage 4 chronic kidney disease, or unspecified chronic kidney disease; I27.2 Other secondary pulmonary hypertension; N18.3 Chronic kidney disease, stage 3 (moderate); E10.51 Type 1 diabetes mellitus with diabetic peripheral angiopathy without gangrene; E10.649 Type 1 diabetes mellitus with hypoglycemia without coma; E10.43 Type 1 diabetes mellitus with diabetic autonomic (poly)neuropathy; E86.0 Dehydration; K27.9 Peptic ulcer, site unspecified, unspecified as acute or chronic, without hemorrhage or perforation; F10.10 Alcohol abuse, uncomplicated; M06.9 Rheumatoid arthritis, unspecified; E10.65 Type 1 diabetes mellitus with hyperglycemia; R53.81 Other malaise; Z91.14 Patient's other noncompliance with medication regimen; Z86.14 Personal history of Methicillin resistant Staphylococcus aureus infection; Z83.3 Family history of diabetes mellitus; Z82.49 Family history of ischemic heart disease and other diseases of the circulatory system; Z79.4 Long term (current) use of insulin; Z79.899 Other long term (current) drug therapy; Z87.891 Personal history of nicotine dependence; Z89.412 Acquired absence of left great toe
CPT/HCPCS: 36415; 36556; 80051; 80053; 80306; 81003; 82009; 82550; 82553; 82565; 82947; 83036; 83735; 84100; 84484; 84520; 85025; 85610; 85730; 93005; 96365; 96375; 99291

== ENCOUNTER 2016-07-06 07:36 | Inpatient (IN) | payer OTHER ==
[2016-07-06] MEDS ORDERED: SODIUM CHLORIDE 0.9% 2,000 ML IV ONE (07:43)
[2016-07-06] MEDS ORDERED: INSULIN REGULAR 100 UNIT/ML VIAL IV STA (07:43)
[2016-07-06] MEDS ORDERED: ONDANSETRON 4 MG/2 ML VIAL IVP STA (07:44)
[2016-07-06 08:15] LABS: Glucose,Whole Blood 581 mg/dL (75-99)
--- NOTE | 2016-07-06 08:45 | ED ---
General Adult HPI - General Chief complaint: Chest Pain Stated complaint: CHEST PAIN, DIABETIC Time Seen by Provider: 07/06/16 07:41 Source: patient, EMS Mode of arrival: EMS Limitations: no limitations - History of Present Illness Initial comments: This patient is a 56-year-old man who presented with the complaints of having multiple rounds of vomiting and then also having developed abdominal and chest pain. The patient indicates that the abdominal pain is somewhat diffuse. The chest pain is substernal and is burning in nature. It started after he had had some vomiting. It gets worse every time he vomits. He denies any relieving factors. He's ranking the pain currently as severe. Patient denies dyspnea, diaphoresis, palpitations or syncope. -: hour(s) Radiation: non-radiation Quality: burning Consistency: constant Improves with: none Worsens with: other (Vomiting) Associated Symptoms: nausea/vomiting - Related Data Home Medications Medication Instructions Recorded Confirmed Dicyclomine [Bentyl] 20 mg PO QID PRN 03/08/16 07/06/16 INSULIN LISPRO (humaLOG) [humaLOG See Protocol SQ ACHS 07/06/16 07/06/16 (formulary)] Previous Rx's Medication Instructions Recorded Omeprazole [PriLOSEC] 40 mg PO AC-BRKFST #14 capsule. 03/26/16 Lisinopril [Zestril] 10 mg PO DAILY #30 tab 06/19/16 amLODIPine [Norvasc] 5 mg PO DAILY #30 tab 06/26/16 hydrALAZINE HCL [Apresoline] 50 mg PO BID #60 tab 06/26/16 Insulin Glargine [Lantus] 25 unit SQ HS vial 07/03/16 Metoclopramide [Reglan] 10 mg PO ACHS #120 tab 07/03/16 Allergies Allergy/AdvReac Type Severity Reaction Status Date / Time No Known Allergies Allergy Verified 07/06/16 11:47 Review of Systems ROS Statement: Those systems with pertinent positive or pertinent negative responses have been documented in the HPI. ROS Other: All systems not noted in ROS Statement are negative. Constitutional: Denies: fever, chills Respiratory: Reports: dyspnea. Denies: cough Cardiovascular: Reports: chest pain. Denies: palpitations, edema, syncope Gastrointestinal: Reports: abdominal pain, nausea, vomiting. Denies: diarrhea, hematemesis, melena, hematochezia Genitourinary: Denies: dysuria Musculoskeletal: Denies: back pain Skin: Denies: rash Neurological: Denies: headache, weakness Past Medical History Past Medical History: Heart Failure, Diabetes Mellitus, Hypertension, Pneumonia , Renal Disease, Rheumatoid Arthritis (RA) Additional Past Medical History / Comment(s): Pt recently admitted 05/31/16 to [facility] with DKA/noncompliance with insulin. Pt is currently not speaking. He opens his eyes on occasion when his name is spoken. No family at bedside. All PMH is from previous medical records. PMH: IDDM type I poorly controlled, diabetic gastroparesis, bilateral feet peripheral neuropathy, blood behind both eyes, peptic ulcer disease/duodenal ulcer/gastritis with erosions, previous hospitalization for pulmonary edema and bilateral pleural effusion and subsequent evaluation showed a preserved LV function with an ejection fraction of around 50%, CKD stage III, normocytic chronic anemia, rheumatoid arthritis, DJD, chronic back pain, osteoarthritis-generalized, eczema, psoriasis, ear infections, hx of narcotic abuse, cocaine abuse and alcohol abuse. History of Any Multi-Drug Resistant Organisms: MRSA Date of last positivie culture/infection: 02/25/08 MDRO Source:: Neck Past Surgical History: Adenoidectomy, Tonsillectomy Additional Past Surgical History / Comment(s): colonoscopy 2008, EGD, lt great toe amp, and part of 2nd toe. Past Anesthesia/Blood Transfusion Reactions: No Reported Reaction Past Psychological History: No Psychological Hx Reported Additional Psychological History / Comment(s): Unknown at this time, however [facility] documents that pt is normally independent and uses no assistive device and that pt has been homeless. Smoking Status: Unknown if ever smoked Past Alcohol Use History: None Reported Additional Past Alcohol Use History / Comment(s): PT has STATED in PMH that he DRINKS OCC BUT LESS THAN 14 PER WEEK Past Drug Use History: None Reported Additional Drug Use History / Comment(s): PT PMH stated pt DENIES ANY DRUG USE IN AT LEAST 7-8 YEARS. 06/18/16 toxicology + for cocaine. 06/29/16 toxicology + or cocaine - Past Family History Father Family Medical History: Diabetes Mellitus, Hypertension Additional Family Medical History / Comment(s): father Mother Additional Family Medical History / Comment(s): pyschiatric issues. She is 76 yrs old. General Exam General appearance: alert, in distress (Patient is having repeated episodes of vomiting) Head exam: Present: atraumatic, normocephalic Eye exam: Present: normal appearance. Absent: scleral icterus, conjunctival injection ENT exam: Present: mucous membranes dry Neck exam: Present: normal inspection Respiratory exam: Present: normal lung sounds bilaterally. Absent: respiratory distress, wheezes, rales, rhonchi, stridor Cardiovascular Exam: Present: normal rhythm, tachycardia, systolic murmur ( Grade 1/6 systolic ejection murmur). Absent: diastolic murmur, rubs, gallop GI/Abdominal exam: Present: soft, tenderness (Mild diffuse tenderness without rebound or guarding). Absent: distended, guarding, rebound, rigid, mass, pulsatile mass, hernia Extremities exam: Present: normal inspection, normal capillary refill. Absent: pedal edema, calf tenderness Back exam: Absent: CVA tenderness (R), CVA tenderness (L) Neurological exam: Present: alert, normal gait Skin exam: Present: warm, dry, intact, normal color Course Vital Signs 07/06/16 07/06/16 07/06/16 07:41 12:15 12:45 Temperature 97.9 F 97.9 F 98.6 F Pulse Rate 107 H 82 99 Respiratory 18 20 18 Rate Blood Pressure 152/81 186/86 172/72 O2 Sat by Pulse 100 99 99 Oximetry 07/06/16 07/06/16 07/06/16 13:00 13:15 13:41 Temperature Pulse Rate 100 99 94 Respiratory 18 18 16 Rate Blood Pressure 182/92 175/85 166/92 O2 Sat by Pulse 99 99 100 Oximetry EKG Findings - EKG Results: EKG: interpreted by ERMD, sinus rhythm EKG shows: tachycardia (Heart rate approximately 107 bpm) - Blocks, [place], Hypertrophy, ST Abn: Chamber hypertrophy or enlargement: left atrial enlargement or conduction defect , right atrial enlargement or conduction defect, left ventricular hypertrophy or enlargement (LVE) Procedures - Central Line Placement Right Femoral Consent Obtained: verbal consent, emergent situation Time Out Performed: Yes Patient Placed on Monitor/Pulse Ox: Yes MD Prep: mask, gown, gloves Local Anesthesia Used: Lidocaine 1% Ultrasound Used for Placement: No Central Line Position: good blood return, all ports aspirated, flushed, capped, sutured in place with 2-0 silk Dressing Applied: Tegaderm Patient Tolerated Procedure: well Complications: none Medical Decision Making - Medical Decision Making This patient is a 56-year-old man with diabetes and multiple previous admissions for DKA. He presents clinically looking somewhat dehydrated, vomiting, consistent with recurrent DKA. The labs do bear this out. The patient's started on IV fluids and insulin. Case discussed with the admitting physician, patient admitted under city call as his previous doctor and discharged him. The patient case discussed with Dr. Obrien who is covering chemical strength tester. Prior to the patient being transferred to the floor, both of his peripheral IVs failed and nursing not able to restart Therefore I placed a right femoral central line to continue the IV fluids and insulin. This will also facilitate repeat lab testing for the patient's electrolytes. - Lab Data Result diagrams: 07/06/16 09:52 07/06/16 09:52 Lab Results 07/06/16 07/06/16 07/06/16 Range/Units 08:13 09:01 09:02 WBC (3.8-10.6) k/uL RBC (4.30-5.90) m/uL Hgb (13.0-17.5) gm/dL Hct (39.0-53.0) % MCV (80.0-100.0) fL MCH (25.0-35.0) pg MCHC (31.0-37.0) g/dL RDW (11.5-15.5) % Plt Count (150-450) k/uL Neutrophils % % Lymphocytes % % Monocytes % % Eosinophils % % Basophils % % Neutrophils # (1.3-7.7) k/uL Lymphocytes # (1.0-4.8) k/uL Monocytes # (0-1.0) k/uL Eosinophils # (0-0.7) k/uL Basophils # (0-0.2) k/uL Macrocytosis Sodium (137-145) mmol/L Potassium (3.5-5.1) mmol/L Chloride (98-107) mmol/L Carbon Dioxide (22-30) mmol/L Anion Gap mmol/L BUN (9-20) mg/dL Creatinine (0.66-1.25) mg/dL Est GFR (MDRD) Af Amer (>60 ml/min/1.73 sqM) Est GFR (MDRD) Non-Af (>60 ml/min/1.73 sqM) Glucose (74-99) mg/dL POC Glucose (mg/dL) 581 H >600 H (75-99) mg/dL POC Glu Chemical Radiation Technician ID Adelita Yan Alison Calcium (8.4-10.2) mg/dL Total Bilirubin (0.2-1.3) mg/dL AST (17-59) U/L ALT (21-72) U/L Alkaline Phosphatase (38-126) U/L Total Protein (6.3-8.2) g/dL Albumin (3.5-5.0) g/dL Amylase (30-110) U/L Lipase (23-300) U/L Urine Color Colorless Urine Appearance Clear (Clear) Urine pH 5.0 (5.0-8.0) Ur Specific [place] 1.018 (1.001-1.035) Urine Protein Negative (Negative) Urine Glucose (UA) 4+ H (Negative) Urine Ketones 4+ H (Negative) Urine Blood Negative (Negative) Urine Nitrate Negative (Negative) Urine Bilirubin Negative (Negative) Urine Urobilinogen <2.0 (<2.0) mg/dL Ur Leukocyte Esterase Negative (Negative) Acetone, Qual (Negative) 07/06/16 07/06/16 07/06/16 Range/Units 09:52 09:52 09:52 WBC 11.7 H (3.8-10.6) k/uL RBC 4.45 (4.30-5.90) m/uL Hgb 14.4 (13.0-17.5) gm/dL Hct 45.5 (39.0-53.0) % MCV 102.3 H D (80.0-100.0) fL MCH 32.2 (25.0-35.0) pg MCHC 31.5 (31.0-37.0) g/dL RDW 13.8 (11.5-15.5) % Plt Count 426 (150-450) k/uL Neutrophils % 90 % Lymphocytes % 5 % Monocytes % 4 % Eosinophils % 0 % Basophils % 1 % Neutrophils # 10.5 H (1.3-7.7) k/uL Lymphocytes # 0.6 L (1.0-4.8) k/uL Monocytes # 0.5 (0-1.0) k/uL Eosinophils # 0.0 (0-0.7) k/uL Basophils # 0.1 (0-0.2) k/uL Macrocytosis Slight Sodium 135 L (137-145) mmol/L Potassium 5.8 H (3.5-5.1) mmol/L Chloride 92 L (98-107) mmol/L Carbon Dioxide 6 L* (22-30) mmol/L Anion Gap 37 mmol/L BUN 25 H (9-20) mg/dL Creatinine 1.75 H (0.66-1.25) mg/dL Est GFR (MDRD) Af Amer 49 (>60 ml/min/1.73 sqM) Est GFR (MDRD) Non-Af 41 (>60 ml/min/1.73 sqM) Glucose 612 H* (74-99) mg/dL POC Glucose (mg/dL) (75-99) mg/dL POC Glu Chemical Radiation Technician ID Calcium 10.3 H (8.4-10.2) mg/dL Total Bilirubin 0.6 (0.2-1.3) mg/dL AST 36 (17-59) U/L ALT 44 (21-72) U/L Alkaline Phosphatase 152 H (38-126) U/L Total Protein 8.3 H (6.3-8.2) g/dL Albumin 4.9 (3.5-5.0) g/dL Amylase 194 H (30-110) U/L Lipase 28 (23-300) U/L Urine Color Urine Appearance (Clear) Urine pH (5.0-8.0) Ur Specific [place] (1.001-1.035) Urine Protein (Negative) Urine Glucose (UA) (Negative) Urine Ketones (Negative) Urine Blood (Negative) Urine Nitrate (Negative) Urine Bilirubin (Negative) Urine Urobilinogen (<2.0) mg/dL Ur Leukocyte Esterase (Negative) Acetone, Qual Positive (Negative) Disposition Clinical Impression: DKA (diabetic ketoacidoses) Disposition: ADMITTED IP TO THIS [facility] Condition: Serious
[2016-07-06 09:03] LABS: Glucose,Whole Blood >600 mg/dL (75-99)
[2016-07-06 09:15] LABS: Appearance,Urine Clear (Clear); Bilirubin,Urine Negative (Negative); Glucose,Urine (UA) 4+ (Negative); Leukocyte Esterase,Urine Negative (Negative); Nitrite,Urine Negative (Negative); Protein,Urine Negative (Negative); Specific Gravity,Urine 1.018 (1.001-1.035); UA Billing (MACRO vs. MICRO) CHEM; Urobilinogen,Urine <2.0 mg/dL (<2.0)
[2016-07-06 09:18] LABS: Ketones,Urine 4+ (Negative)
[2016-07-06 10:07] LABS: Basophils # (A) 0.1 k/uL (0-0.2); Basophils % (A) 1 %; CHCM 31.5; Eosinophils % (A) 0 %; HCT 45.5 % (39.0-53.0); HDW 2.55; HGB 14.4 gm/dL (13.0-17.5); Luc # (Auto) 0.08; Luc % (Auto) 1; Lymphocytes # (A) 0.6 k/uL (1.0-4.8); Lymphocytes % (A) 5 %; MCH 32.2 pg (25.0-35.0); MCHC 31.5 g/dL (31.0-37.0); Macrocytosis Slight; Mean Platelet Volume 8.7; Monocytes # (A) 0.5 k/uL (0-1.0); Monocytes % (A) 4 %; Neutrophils # (A) 10.5 k/uL (1.3-7.7); Neutrophils % (A) 90 %; RBC 4.45 m/uL (4.30-5.90); RDW 13.8 % (11.5-15.5); WBC 11.7 k/uL (3.8-10.6); WBC (Perox) 10.58
[2016-07-06 10:09] LABS: MCV 102.3 fL (80.0-100.0)
[2016-07-06 10:17] LABS: Calcium 10.3 mg/dL (8.4-10.2); Potassium 5.8 mmol/L (3.5-5.1); Total Bilirubin 0.6 mg/dL (0.2-1.3); Total Protein 8.3 g/dL (6.3-8.2)
[2016-07-06] MEDS ORDERED: SODIUM CHLORIDE 0.9% 1,000 ML IV SCH (10:30)
[2016-07-06] MEDS: INSULIN REGULAR 100 UNIT in SODIUM CHLORIDE 0.9% 100 ML IV SCH ×2 (10:46→19:08)
[2016-07-06] MEDS ORDERED: DICYCLOMINE 20 MG TAB PO PRN (10:47)
[2016-07-06 12:14] LABS: Glucose,Whole Blood 526 mg/dL (75-99)
[2016-07-06] MEDS ORDERED: METOCLOPRAMIDE 10 MG TAB PO SCH (12:30)
[2016-07-06 13:25] LABS: Glucose,Whole Blood 380 mg/dL (75-99)
[2016-07-06 14:09] LABS: Glucose,Whole Blood 324 mg/dL (75-99)
[2016-07-06] MEDS ORDERED: METOCLOPRAMIDE 5 MG/ML 2 ML VIAL ONE (14:11)
[2016-07-06] MEDS ORDERED: METOCLOPRAMIDE 5 MG/ML 2 ML VIAL IVP PRN (14:12)
[2016-07-06 15:18] LABS: Glucose,Whole Blood 265 mg/dL (75-99)
[2016-07-06] MEDS ORDERED: ALPRAZolam 0.25 MG TAB PO PRN (15:47)
[2016-07-06] MEDS ORDERED: cloNIDine HCL 0.1 MG TAB PO PRN (15:47)
[2016-07-06] MEDS ORDERED: hydrALAZINE HCL 20 MG/ML 1 ML VIAL IVP PRN (15:47)
[2016-07-06] MEDS ORDERED: LORazepam 2 MG/ML SYRINGE IV PRN (15:48)
[2016-07-06] MEDS: D5-0.45% NACL WITH KCL 20MEQ/L 1,000 ML IV SCH ×2 (16:18→22:40)
[2016-07-06 16:32] LABS: Glucose,Whole Blood 168 mg/dL (75-99)
--- NOTE | 2016-07-06 16:36 | XR ---
EXAMINATION TYPE: XR chest 1V portable DATE OF EXAM: 07/06/2016 4:02 PM COMPARISON: Prior chest x-ray May HISTORY: Congestive heart failure TECHNIQUE: Single frontal view of the chest is obtained. FINDINGS: There is no focal air space opacity, pleural effusion, or pneumothorax seen. The cardiac silhouette size is within normal limits. There are overlying cardiac leads. Old right-sided rib fract ure is stable seventh rib.. IMPRESSION: No acute process.
--- NOTE | 2016-07-06 16:59 | HP ---
DATE OF ADMISSION: 07/06/2016 CHIEF COMPLAINT: Unresponsive and diabetic ketoacidosis. HISTORY OF PRESENT ILLNESS: This 56 -year-old gentleman with past medical history of diabetes, hypertension, history of pneumonia, rheumatoid arthritis, history of noncompliance, history of remote history of substance abuse, history of chronic kidney disease stage III being followed by apparently by Dr. Sofia Emanuel in the outpatient setting is apparently homeless. The patient recently admitted with DKA. Patient went home. Patient was discharged, but subsequently patient was not taking any insulin and the patient presented to [facility] Emergency Room Department with features of diabetic ketoacidosis. The patient is barely responsive at this time. Sodium is 132, potassium 5.8. Sugars are , CO2 was 6, acetone was positive. The EKG shows sinus tachycardia and LVH. There is no history of any trauma. A detailed history could not be taken from the patient because of the change in mental status, most of history taken from my discussion with the ER physician, review of the chart and discussion with staff at the bedside. PAST MEDICAL HISTORY: History of diabetes mellitus type 2, brittle and history of noncompliance, hypertension, history of pneumonia, history of renal disease, history of rheumatoid, CHF, and tonsillectomy. Medications prior to admission include: 1. Hydralazine 50 mg p.o. b.i.d. 2. Norvasc 5 mg p.o. daily. 3. Prilosec 40 mg b.i.d. 4. Reglan 10 mg at a.c. and bedtime. 6. Lantus 25 subcu q.h.s. 7. Humalog a.c. and at bedtime. 8. Bentyl 20 mg q.i.d. p.r.n. ALLERGIES: None. Family history, social history and review of systems could not be taken from the patient but; however, diabetes, hypertension, per chart in the family. History of substance abuse as per the chart. PHYSICAL EXAMINATION: Patient is stuporous. Pulse is 108, blood pressure 160/77, respiratory rate 19, temperature is normal. Pulse ox 100% on room air. HEENT: Conjunctivae normal. Oral mucosa dry. NECK: No jugular venous distention. No carotid bruit. No lymph node enlargement. CARDIOVASCULAR: S1, S2 muffled. No S3, no S4. RESPIRATORY: Breath sounds diminished at the bases. A few scattered rhonchi and crackles. ABDOMEN: Soft, nontender. No mass palpable. LEGS: No edema. No swelling. CENTRAL NERVOUS SYSTEM: Higher function as mentioned earlier. Could not be tested because the patient is stuporous. SKIN: No ulcer, rash or bleeding. LYMPHATICS: No lymph nodes palpable in the neck and joints. No active deforming arthropathy. LABS: WBC 11.7 and MCV 102.3. Sodium 130, potassium 5.3, CO2 6, glucose 612, total protein 8.3. Calcium is 10.2. ASSESSMENT: 1. Acute diabetic ketoacidosis. 2. Change in mental status, metabolic encephalopathy secondary to diabetic ketoacidosis. 3. Chronic kidney disease stage III. 4. Hyperkalemia from kidney failure. 5. Hyponatremia. 6. Decreased CO2. 7. Hypercalcemia. 8. Increased WBC. 9. Increased MCV. 10. History of noncompliance. 11. History of chronic abdominal pain secondary to diabetic gastroparesis. 12. History of rheumatoid arthritis. 13. Hypertension. 14. History of remote cocaine use. 15. History of chronic back pain and degenerative joint disease. 16. History of ETOH abuse. 17. History of recurrent diabetic ketoacidosis. 18. History of peptic ulcer disease. 19. History of congestive heart failure with chronic systolic dysfunction, ejection fraction 50%. 20. History of degenerative joint disease. 21. History of methicillin-resistant Staphylococcus aureus. 22. History of adenoidectomy and tonsillectomy. 23. Previously NO CODE, NO CPR, NO VENTILATOR. Recommendations and discussion: In this 56-year-old gentleman who presented with multiple complex medical issues, we will monitor the patient closely, continue the current medications, continue DKA protocol, symptomatic treatment, Proton pump inhibitors. I would also recommend p.r.n. medications. P.R.N. medication may be started once the patient is p.o. Otherwise, we will manage the patient along with Dr. Obrien. rehab services aide will be consulted regarding the home situation. Repeat labs also ordered. DKA protocol will be utilized as mentioned earlier. Prognosis guarded. Further recommendations to follow. MTDD
[2016-07-06 17:09] LABS: Glucose,Whole Blood 164 mg/dL (75-99)
[2016-07-06 17:54] LABS: Anion Gap 20 mmol/L; Blood Urea Nitrogen 24 mg/dL (9-20); Carbon Dioxide 23 mmol/L (22-30); Chloride 101 mmol/L (98-107); Glucose 168 mg/dL (74-99); Non-African American GFR(MDRD) 53 (>60 ml/min/1.73 sqM); Phosphorous 2.1 mg/dL (2.5-4.5); Potassium 4.1 mmol/L (3.5-5.1); Sodium 144 mmol/L (137-145)
[2016-07-06 18:17] LABS: Glucose,Whole Blood 148 mg/dL (75-99)
[2016-07-06] MEDS: NICOTINE 14MG/24HR PATCH TRANSDERM SCH (18:18)
[2016-07-06 19:08] LABS: Glucose,Whole Blood 142 mg/dL (75-99)
[2016-07-06 19:59] LABS: Glucose,Whole Blood 170 mg/dL (75-99)
[2016-07-06 20:32] LABS: Appearance,Urine Clear (Clear); Bilirubin,Urine Negative (Negative); Glucose,Urine (UA) 4+ (Negative); Leukocyte Esterase,Urine Negative (Negative); Mucus,Urine Rare /hpf; Nitrite,Urine Negative (Negative); PH, Urine 5.5 (5.0-8.0); Particle Count 1097; Protein,Urine 1+ (Negative); RBC,Urine <1 /hpf (0-5); Specific Gravity,Urine 1.016 (1.001-1.035); UA Billing (MACRO vs. MICRO) MICRO; Urobilinogen,Urine <2.0 mg/dL (<2.0); WBC,Urine 1 /hpf (0-5)
[2016-07-06 20:37] LABS: Ketones,Urine 4+ (Negative)
[2016-07-06 21:11] LABS: Glucose,Whole Blood 153 mg/dL (75-99)
[2016-07-06 22:06] LABS: Glucose,Whole Blood 154 mg/dL (75-99)
[2016-07-06] MEDS: hydrALAZINE HCL 50 MG TAB PO SCH (22:09)
[2016-07-06] MEDS: PANTOPRAZOLE 40 MG/10 ML VIAL IVP SCH (22:09)
[2016-07-06 23:17] LABS: Glucose,Whole Blood 134 mg/dL (75-99)
[2016-07-06 23:51] LABS: ALT 37 U/L (21-72); AST 22 U/L (17-59); Alkaline Phosphatase 104 U/L (38-126); Anion Gap 11 mmol/L; Blood Urea Nitrogen 22 mg/dL (9-20); Calcium 8.4 mg/dL (8.4-10.2); Carbon Dioxide 24 mmol/L (22-30); Chloride 107 mmol/L (98-107); Glucose 176 mg/dL (74-99); Non-African American GFR(MDRD) >60 (>60 ml/min/1.73 sqM); Potassium 4.3 mmol/L (3.5-5.1); Sodium 142 mmol/L (137-145); Total Bilirubin 0.4 mg/dL (0.2-1.3); Total Protein 6.5 g/dL (6.3-8.2)
[2016-07-07 00:20] LABS: Glucose,Whole Blood 131 mg/dL (75-99)
[2016-07-07 01:05] LABS: Glucose,Whole Blood 138 mg/dL (75-99)
[2016-07-07 02:04] LABS: Glucose,Whole Blood 161 mg/dL (75-99)
[2016-07-07 03:21] LABS: Glucose,Whole Blood 228 mg/dL (75-99)
[2016-07-07 04:18] LABS: Glucose,Whole Blood 288 mg/dL (75-99)
[2016-07-07 04:28] LABS: CH 31.9; CHCM 33.4; HCT 39.9 % (39.0-53.0); HDW 2.49; HGB 13.1 gm/dL (13.0-17.5); MCH 31.6 pg (25.0-35.0); Mean Platelet Volume 6.9; RBC 4.16 m/uL (4.30-5.90); RDW 14.1 % (11.5-15.5); WBC 13.4 k/uL (3.8-10.6)
[2016-07-07 04:34] LABS: MCV 95.7 fL (80.0-100.0)
[2016-07-07 04:39] LABS: Anion Gap 16 mmol/L; Blood Urea Nitrogen 21 mg/dL (9-20); Calcium 9.2 mg/dL (8.4-10.2); Carbon Dioxide 21 mmol/L (22-30); Chloride 102 mmol/L (98-107); Glucose 286 mg/dL (74-99); Non-African American GFR(MDRD) >60 (>60 ml/min/1.73 sqM); Phosphorous 3.1 mg/dL (2.5-4.5); Potassium 4.6 mmol/L (3.5-5.1); Sodium 139 mmol/L (137-145)
[2016-07-07 05:03] LABS: Glucose,Whole Blood 240 mg/dL (75-99)
[2016-07-07] MEDS: D5-0.45% NACL WITH KCL 20MEQ/L 1,000 ML IV SCH ×2 (05:47→12:24)
[2016-07-07 06:12] LABS: Glucose,Whole Blood 227 mg/dL (75-99)
[2016-07-07 07:02] LABS: Glucose,Whole Blood 238 mg/dL (75-99)
[2016-07-07] MEDS ORDERED: PANTOPRAZOLE 40 MG TABLET PO SCH (07:30)
[2016-07-07] MEDS: NICOTINE 14MG/24HR PATCH TRANSDERM SCH (07:44)
[2016-07-07 08:26] LABS: Glucose,Whole Blood 213 mg/dL (75-99)
[2016-07-07] MEDS: amLODIPine 5 MG TAB PO SCH (08:26)
[2016-07-07] MEDS: PANTOPRAZOLE 40 MG/10 ML VIAL IVP SCH ×2 (08:26→20:11)
[2016-07-07] MEDS: hydrALAZINE HCL 50 MG TAB PO SCH (08:26)
[2016-07-07] MEDS: LISINOPRIL 10 MG TAB PO SCH (08:26)
[2016-07-07 08:59] LABS: Anion Gap 10 mmol/L; Blood Urea Nitrogen 19 mg/dL (9-20); Calcium 8.4 mg/dL (8.4-10.2); Carbon Dioxide 24 mmol/L (22-30); Chloride 100 mmol/L (98-107); Glucose 251 mg/dL (74-99); Non-African American GFR(MDRD) >60 (>60 ml/min/1.73 sqM); Sodium 134 mmol/L (137-145)
[2016-07-07 09:32] LABS: Glucose,Whole Blood 315 mg/dL (75-99)
--- NOTE | 2016-07-07 10:39 | P.CNPUL ---
History of Present Illness Consult date: 07/07/16 Reason for consult: other Chief complaint: Diabetic ketoacidosis History of present illness: 56-year-old man well-known to our service. He said multiple episodes of diabetic ketoacidosis. Comes into the emergency room complaining of nausea and vomiting. Also with abdominal and chest discomfort. The patient was found to be in DKA and was admitted here to the unit. He was started on the protocol. That included insulin drip and facet saline resuscitation. The patient's currently doing much better. He's currently on room air. His anion gap is 10. He is getting a D5.45 IV at 150 mL now with 20 of potassium chloride. His insulin drip is at 2.8 units per hour. Doing much better. No particular complaints at this time. No shortness of breath. No additional nausea vomiting. The patient has a history of GERD hypertension and diabetes with multiple episodes of diabetic ketoacidosis. Also suffers some diabetic gastroparesis. Review of Systems A 12 point review of system is positive for multiple episodes of nausea and vomiting as well as abdominal and chest pain. Pretty much although symptoms have resolved. The rest of the 12 point review of system is unremarkable. Past Medical History Past Medical History: Heart Failure, Diabetes Mellitus, Hypertension, Pneumonia , Renal Disease, Rheumatoid Arthritis (RA) Additional Past Medical History / Comment(s): Pt recently admitted 05/31/16 to [facility] with DKA/noncompliance with insulin. Pt is currently not speaking. He opens his eyes on occasion when his name is spoken. No family at bedside. All PMH is from previous medical records. PMH: IDDM type I poorly controlled, diabetic gastroparesis, bilateral feet peripheral neuropathy, blood behind both eyes, peptic ulcer disease/duodenal ulcer/gastritis with erosions, previous hospitalization for pulmonary edema and bilateral pleural effusion and subsequent evaluation showed a preserved LV function with an ejection fraction of around 50%, CKD stage III, normocytic chronic anemia, rheumatoid arthritis, DJD, chronic back pain, osteoarthritis-generalized, eczema, psoriasis, ear infections, hx of narcotic abuse, cocaine abuse and alcohol abuse. History of Any Multi-Drug Resistant Organisms: MRSA Date of last positivie culture/infection: 02/25/08 MDRO Source:: Neck Past Surgical History: Adenoidectomy, Tonsillectomy Additional Past Surgical History / Comment(s): colonoscopy 2009, EGD, lt great toe amp, and part of 2nd toe. Past Anesthesia/Blood Transfusion Reactions: No Reported Reaction Past Psychological History: No Psychological Hx Reported Additional Psychological History / Comment(s): Unknown at this time, however PMH documents that pt is normally independent and uses no assistive device and that pt has been homeless. Smoking Status: Unknown if ever smoked Past Alcohol Use History: None Reported Additional Past Alcohol Use History / Comment(s): PT has STATED in PMH that he DRINKS OCC BUT LESS THAN 14 PER WEEK Past Drug Use History: None Reported Additional Drug Use History / Comment(s): PT PMH stated pt DENIES ANY DRUG USE IN AT LEAST 7-8 YEARS. 06/18/16 toxicology + for cocaine. 06/29/16 toxicology + or cocaine - Past Family History Father Family Medical History: Diabetes Mellitus, Hypertension Additional Family Medical History / Comment(s): father Mother Additional Family Medical History / Comment(s): pyschiatric issues. She is 76 yrs old. Medications and Allergies Home Medications Medication Instructions Recorded Confirmed Type Dicyclomine [Bentyl] 20 mg PO QID PRN 03/08/16 07/06/16 History INSULIN LISPRO (humaLOG) [humaLOG See Protocol SQ ACHS 07/06/16 07/06/16 History (formulary)] Allergies Allergy/AdvReac Type Severity Reaction Status Date / Time No Known Allergies Allergy Verified 07/06/16 11:47 Physical Exam Osteopathic Statement: *. No significant issues noted on an osteopathic structural exam other than those noted in the History and Physical/Consult. Vitals: Vital Signs Temp Pulse Pulse Resp BP Pulse Ox 07/07/16 08:00 99.1 F 92 17 160/97 07/07/16 07:00 96 19 153/77 07/07/16 06:00 102 H 7 L 165/88 07/07/16 05:00 99 16 176/95 07/07/16 04:00 99.2 F 99 104 H 18 164/87 07/07/16 03:00 107 H 18 138/103 07/07/16 02:00 104 H 17 133/102 07/07/16 01:00 105 H 17 133/102 07/07/16 00:00 99.2 F 106 H 104 H 16 07/06/16 23:15 117 H 7 L 164/65 07/06/16 23:00 113 H 17 172/75 07/06/16 22:00 112 H 19 143/65 07/06/16 21:00 117 H 21 119/85 07/06/16 20:00 98.8 F 112 H 104 H 17 191/98 07/06/16 19:00 115 H 18 187/81 07/06/16 18:10 111 H 21 160/77 07/06/16 18:00 113 H 14 160/77 07/06/16 17:50 111 H 22 160/77 07/06/16 17:40 113 H 22 184/95 07/06/16 17:30 117 H 17 184/95 100 07/06/16 17:20 110 H 24 184/95 07/06/16 17:09 113 H 21 166/81 100 07/06/16 17:00 125 H 20 166/81 100 07/06/16 16:50 109 H 19 166/81 100 07/06/16 16:40 108 H 20 173/82 100 07/06/16 16:30 97.6 F 105 H 23 173/82 100 17 16:20 106 H 20 173/82 100 07/06/16 16:10 101 H 13 179/90 100 07/06/16 16:00 104 H 104 H 22 179/90 100 07/06/16 15:50 106 H 22 179/90 100 17 15:40 104 H 21 182/98 100 17 15:30 106 H 23 182/98 100 07/06/16 15:20 105 H 16 182/98 100 07/06/16 15:10 109 H 21 167/78 100 17 15:00 115 H 18 167/78 100 07/06/16 14:50 108 H 19 167/78 100 1817 14:40 99 24 171/76 100 17 14:30 100 20 171/76 100 07/06/16 14:20 97.5 F L 99 104 H 13 171/76 100 18/17 13:45 98.3 F 93 18 166/63 100 1817 13:41 94 16 166/92 100 17 13:15 99 18 175/85 99 07/06/16 13:00 100 18 182/92 99 07/06/16 12:45 98.6 F 99 18 172/72 99 07/06/16 12:38 97.5 F L 22 100 07/06/16 12:15 97.9 F 82 20 186/86 99 Intake and Output 07/06/16 07/07/16 07/07/16 22:59 06:59 14:59 Intake Total 1196.28 1863.057 157.163 Output Total 600 350 Balance 596.28 1513.057 157.163 Intake: IV 1150 1350 150 D5-0.45% NaCl with KCl 750 1350 150 20Meq/l 1,000 ml @ 150 mls/hr IV .Q6H40M JURGEN Rx# :[id number] Sodium Chloride 0.9% 1, 400 000 ml @ 200 mls/hr IV . Q5H JURGEN Rx#:[id number] Intake, IV Titration 46.28 13.057 7.163 Amount Insulin Regular 100 unit 46.28 13.057 7.163 In Sodium Chloride 0.9% 100 ml @ 0.1 UNITS/KG/HR 7.78 mls/hr IV .[id number] JURGEN Rx#:[id number] Oral 500 Output: Urine 400 350 Emesis 200 Other: Voiding Method Urinal Urinal Weight 67.6 kg 67.2 kg No acute distress, oriented 3. HEENT examination is grossly unremarkable. Mucous membranes are a bit dry. Neck supple. Full range of motion. No adenopathy. Cardiovascular examination reveals regular rhythm rate. S1 and S2 normal. Abdomen soft , bowel sounds noted Lungs are clear breath sounds are equal. No adventitious lung sounds when he wheezes rhonchi or crackles. Extremities are intact. No cyanosis clubbing or edema. Results - Laboratory Findings CBC and BMP: 07/07/16 04:15 07/07/16 08:39 Abnormal lab findings: Abnormal Labs 07/06/16 07/06/16 07/06/16 12:12 13:13 14:07 WBC RBC Sodium Carbon Dioxide BUN Creatinine Glucose POC Glucose (mg/dL) 526 H 380 H 324 H Phosphorus Urine Protein Urine Glucose (UA) Urine Ketones Urine Blood Urine Mucus Urine Cocaine Screen 07/06/16 07/06/16 07/06/16 15:17 16:31 17:07 WBC RBC Sodium Carbon Dioxide BUN Creatinine Glucose POC Glucose (mg/dL) 265 H 168 H 164 H Phosphorus Urine Protein Urine Glucose (UA) Urine Ketones Urine Blood Urine Mucus Urine Cocaine Screen 07/06/16 07/06/16 07/06/16 17:32 18:15 19:05 WBC RBC Sodium Carbon Dioxide BUN 24 H Creatinine 1.38 H Glucose 168 H POC Glucose (mg/dL) 148 H 142 H Phosphorus 2.1 L Urine Protein Urine Glucose (UA) Urine Ketones Urine Blood Urine Mucus Urine Cocaine Screen 07/06/16 07/06/16 07/06/16 19:56 20:00 21:10 WBC RBC Sodium Carbon Dioxide BUN Creatinine Glucose POC Glucose (mg/dL) 170 H 153 H Phosphorus Urine Protein 1+ H Urine Glucose (UA) 4+ H Urine Ketones 4+ H Urine Blood Trace H Urine Mucus Rare H Urine Cocaine Screen Detected H 07/06/16 07/06/16 07/06/16 22:04 23:14 23:25 WBC RBC Sodium Carbon Dioxide BUN 22 H Creatinine Glucose 176 H POC Glucose (mg/dL) 154 H 134 H Phosphorus Urine Protein Urine Glucose (UA) Urine Ketones Urine Blood Urine Mucus Urine Cocaine Screen 07/07/16 07/07/16 07/07/16 00:16 01:02 02:02 WBC RBC Sodium Carbon Dioxide BUN Creatinine Glucose POC Glucose (mg/dL) 131 H 138 H 161 H Phosphorus Urine Protein Urine Glucose (UA) Urine Ketones Urine Blood Urine Mucus Urine Cocaine Screen 07/07/16 07/07/16 07/07/16 03:18 04:15 04:15 WBC 13.4 H RBC 4.16 L Sodium Carbon Dioxide 21 L BUN 21 H Creatinine Glucose 286 H POC Glucose (mg/dL) 228 H Phosphorus Urine Protein Urine Glucose (UA) Urine Ketones Urine Blood Urine Mucus Urine Cocaine Screen 07/07/16 07/07/16 07/07/16 04:16 05:01 06:10 WBC RBC Sodium Carbon Dioxide BUN Creatinine Glucose POC Glucose (mg/dL) 288 H 240 H 227 H Phosphorus Urine Protein Urine Glucose (UA) Urine Ketones Urine Blood Urine Mucus Urine Cocaine Screen 07/07/16 07/07/16 07/07/16 07:00 08:25 08:39 WBC RBC Sodium 134 L Carbon Dioxide BUN Creatinine Glucose 251 H POC Glucose (mg/dL) 238 H 213 H Phosphorus 2.0 L Urine Protein Urine Glucose (UA) Urine Ketones Urine Blood Urine Mucus Urine Cocaine Screen 07/07/16 09:30 WBC RBC Sodium Carbon Dioxide BUN Creatinine Glucose POC Glucose (mg/dL) 315 H Phosphorus Urine Protein Urine Glucose (UA) Urine Ketones Urine Blood Urine Mucus Urine Cocaine Screen - Diagnostic Findings Chest x-ray: image reviewed (X-rays medications and labs are all reviewed.) Assessment and Plan (1) GERD (gastroesophageal reflux disease) Status: Acute (2) Gastroparesis Status: Acute (3) DKA (diabetic ketoacidoses) Status: Acute (4) Hypertension Status: Acute (5) Vomiting Status: Acute Plan: Plan The patient's doing well. His anion gap is now normal. The patient's blood sugars in the mid 200s. His bicarbonate level is improved. From my perspective the patient could be discharged out to the floor. No additional recommendations are made. We'll allow the primary service continue to manage this patient. We'll continue to follow. Chest x-ray was clear. Time with Patient: Greater than 30
[2016-07-07 10:40] LABS: Glucose,Whole Blood 225 mg/dL (75-99)
[2016-07-07 11:21] LABS: Glucose,Whole Blood 232 mg/dL (75-99)
[2016-07-07 12:09] LABS: Glucose,Whole Blood 281 mg/dL (75-99)
[2016-07-07] MEDS ORDERED: INSULIN REGULAR 100 UNIT in SODIUM CHLORIDE 0.9% 100 ML IV SCH (12:30)
[2016-07-07] MEDS ORDERED: D5-0.45% NACL WITH KCL 20MEQ/L 1,000 ML IV SCH (12:30)
[2016-07-07 14:25] LABS: Glucose,Whole Blood 76 mg/dL (75-99)
[2016-07-07 15:06] LABS: Glucose,Whole Blood 67 mg/dL (75-99)
[2016-07-07 15:42] LABS: Glucose,Whole Blood 89 mg/dL (75-99)
[2016-07-07 15:59] LABS: Glucose,Whole Blood 141 mg/dL (75-99)
[2016-07-07] MEDS ORDERED: INSULIN GLARGINE 100 UNIT/ML 10 ML VIAL SQ STA (16:49)
[2016-07-07 16:57] LABS: Glucose,Whole Blood 198 mg/dL (75-99)
[2016-07-07] MEDS: INSULIN LISPRO (humaLOG) 300 UNIT/3 ML VIAL SQ SCH ×2 (17:29→20:12)
[2016-07-07] MEDS: oxyCODONE-APAP 10-325MG 1 EACH TAB PO PRN ×2 (17:32→21:48)
[2016-07-07 20:23] LABS: Glucose,Whole Blood 238 mg/dL (75-99)
[2016-07-07] MEDS ORDERED: INSULIN DETEMIR 100 UNIT/ML 10 ML VIAL SQ SCH (21:00)
[2016-07-08] MEDS: oxyCODONE-APAP 10-325MG 1 EACH TAB PO PRN ×4 (02:17→17:09)
[2016-07-08 06:03] LABS: Glucose,Whole Blood 37 mg/dL (75-99)
[2016-07-08 06:18] LABS: Glucose,Whole Blood 51 mg/dL (75-99)
[2016-07-08 06:47] LABS: Glucose,Whole Blood 85 mg/dL (75-99)
[2016-07-08 07:15] LABS: Glucose,Whole Blood 103 mg/dL (75-99)
[2016-07-08] MEDS: INSULIN LISPRO (humaLOG) 300 UNIT/3 ML VIAL SQ SCH ×4 (07:36→20:01)
[2016-07-08] MEDS: hydrALAZINE HCL 50 MG TAB PO SCH ×2 (07:37→20:00)
[2016-07-08] MEDS: LISINOPRIL 10 MG TAB PO SCH (07:37)
[2016-07-08] MEDS: amLODIPine 5 MG TAB PO SCH (07:37)
[2016-07-08] MEDS: PANTOPRAZOLE 40 MG/10 ML VIAL IVP SCH (07:38)
[2016-07-08] MEDS: NICOTINE 14MG/24HR PATCH TRANSDERM SCH (07:38)
[2016-07-08 07:55] VITALS: RESP 16
--- NOTE | 2016-07-08 08:08 | PN ---
DATE OF SERVICE: 07/07/2016 This 56-year-old gentleman admitted with acute diabetic ketoacidosis is being closely monitored at this time. The patient was more alert today. The patient was more alert today. The patient also had metabolic encephalopathy. The patient was also positive for cocaine. The patient was given insulin drip at this time and going up to 0.5 units per hour at this time. Apparently the patient was taking insulin and compliant with the medication according to him. The patient apparently also has an apartment and living with a friend. PAST MEDICAL HISTORY: Reviewed. REVIEW OF SYSTEMS: CARDIOVASCULAR: No angina or palpitations. RESPIRATORY: No cough. GI: As mentioned earlier. : As mentioned earlier. CENTRAL NERVOUS SYSTEM: As mentioned earlier. Current medications are reviewed and include: 1. Norvasc 5 mg daily. 2. Catapres 0.125. 3. Bentyl. 4. Apresoline. 5. Levemir 25 units subcu at bedtime. 7. Habitrol 14. 8. Percocet. 9. Protonix. PHYSICAL EXAMINATION: The patient is, alert and oriented x3. Pulse is 99, blood pressure is 139/60, respiratory rate 15, temperature 98 degrees, pulse ox 98% on room air. HEENT: Conjunctivae normal. NECK: No jugular venous distention. CARDIOVASCULAR: S1, S2 muffled. RESPIRATORY: Breath sounds diminished at the bases. Bilateral scattered rhonchi and crackles. ABDOMEN: Soft, obese. Nontender. No mass palpable. LEGS: No edema. No swelling. CENTRAL NERVOUS SYSTEM: No focal deficits. LABS: WBC 13.5, hemoglobin 13.1. Sodium is 134. Glucose 251. ASSESSMENT: 1. Acute diabetic ketoacidosis. 2. Diabetes mellitus type 1, uncontrolled. 3. Change in mental status, metabolic encephalopathy, secondary to diabetic ketoacidosis. 4. Chronic kidney disease stage III. 5. Hyperkalemia from renal failure. 6. Hyponatremia. 7. Decreased CO2. 8. Hypocalcemia. 9. Increased WBC. 10. Increased MCV. 11. Positive cocaine. 12. History of noncompliance. 13. History of chronic abdominal pain secondary to diabetic gastroparesis. 14. History of rheumatoid arthritis. 15. Hypertension. 16. History of chronic back pain degenerative joint disease. 17. History of ETOH abuse. 18. History of recurrent diabetic ketoacidosis. 19. History of peptic ulcer disease. 20. History of congestive heart failure with chronic systolic dysfunction, ejection fraction 50%. 21. History of degenerative joint disease. 22. History of Methicillin-resistant Staph aureus. 23. History of adenoidectomy/tonsillectomy. 24. Previously NO CODE, NO CPR, NO VENT. RECOMMENDATIONS AND DISCUSSION: In this 56-year-old gentleman who presented with multiple complex medical issues, we will continue with current medications, continue to monitor and symptomatic treatment. Otherwise, at this time I would recommend switch to p.o. medications and I would also recommend to shut out insulin drip in 2 hours. Lantus 8 units and Novolin 25 subcu q.h.s., Accu-Cheks a.c. and q.h.s. Novolog to scale. Prognosis is guarded because of multiple complex medical issues. Further recommendations to follow. Discussed with the patient. Discussed with staff. Further recommendations to follow. See orders for further details. The anion gap is closed at this time. I would also monitor the patient closely. Further recommendations to follow. MTDD
[2016-07-08 11:57] LABS: Glucose,Whole Blood 223 mg/dL (75-99)
[2016-07-08] MEDS ORDERED: INSULIN DETEMIR 100 UNIT/ML 10 ML VIAL SQ STA (13:18)
[2016-07-08 13:59] VITALS: BMI 21.9
--- NOTE | 2016-07-08 15:00 | CDI ---
In responding to this query, please exercise your independent professional judgment. The [facility] Coding Staff and Clinical Documentation Specialists appreciate your assistance in clarifying documentation, maintaining compliance with coding guidelines, accurately documenting patients condition and capturing severity of illness. The fact that a question is asked does not imply that any particular answer is desired or expected. Communication forms are a method of clarifying documentation and are not made part of the Legal Health Record. Thank you in advance for your clarification. Last Revision, March 2015 Dm Gomez [address] [place] [address] Documentation Clarification Form Date: 07/08/2016 2:53:00 PM From: Rhea Talbot CCS, CCDS Admit Date: 07/06/2016 12:10:00 PM Patient Name: Rigo Krueger Visit Number: [id number] Discharge Date: Dr. Verónica Rg: Per the documentation in this record, the patient is diagnosed with DKA and a history of Diabetes Mellitus Type II with DKA. Per the patient's previous admissions, it is documented the patient has Diabetes Mellitus Type I. Please clarify the type of DM you are treating. Patient history/risk factors: Multiple admissions for DKA, documented as DM type I & II over multi admissions, also noted to be noncompliant with Insulin. Clinical Indicators: Unresponsive, vomiting, abdominal pain, recent discharge for DKA, noncompliance. Lab findings: Glucose >600 Treatment: Insulin drip, IV fluid bolus, IV fluids, Social Work consult for living arrangement & Pulmonary/Critical Care consult. In your professional opinion, can you please clarify: Diabetes Mellitus Type I Diabetes Mellitus Type II Other Unable to determine Please document in your progress notes and discharge summary in order to capture severity of illness and risk of mortality. Include clinical findings that support your diagnosis. FYI: Press F11 to launch patient chart. Place X here if this finding has no clinical significance, is not applicable or if you are not able to provide any additional documentation. Thank You. SENG
--- NOTE | 2016-07-08 16:08 | P.PN ---
Subjective This is a pleasant 56-year-old gentleman who presented the emergency room on with complaints of nausea vomiting abdominal pain. He does have a history of diabetes mellitus and has been admitted here for another episode of acute DKA and does have a history of diabetic gastroparesis. He initially had altered mental status secondary to the DKA metabolic encephalopathy. He was initially seen and evaluated in the intensive care unit. He is seen again today in follow-up on the regular medical floor. He is awake and alert in no acute distress. He still has some complaints of abdominal discomfort. He's continues with a labile blood sugars as low as 37 early this morning currently 223. He has been maintained on Levemir and Humalog. He denies any shortness of breath, cough or congestion. Objective - Vital Signs Vital signs: Vital Signs Temp 99.2 F 07/08/16 07:00 Pulse 95 07/08/16 07:00 Resp 16 07/08/16 07:00 BP 139/77 07/08/16 07:00 Pulse Ox 97 07/08/16 07:00 Intake & Output 07/07/16 07/08/16 07/08/16 18:59 06:59 18:59 Intake Total 510.058 6305 487 Output Total 400 Balance 421.160 7253 487 Weight 67.2 kg Intake: IV 750 1350 D5-0.45% NaCl with KCl 750 1350 20Meq/l 1,000 ml @ 150 mls/hr IV .Q6H40M [facility] Rx# :[id number] Intake, IV Titration 18.132 Amount Insulin Regular 100 unit 14.536 In Sodium Chloride 0.9% 100 ml @ 0.1 UNITS/KG/HR 7.78 mls/hr IV .[id number] [facility] Rx#:[id number] Insulin Regular 100 unit 3.596 In Sodium Chloride 0.9% 100 ml @ Titrate IV .Q0M J[facility]GEN Rx#:[id number] Oral 487 Output: Urine 400 Other: Voiding Method Toilet Toilet # Voids 2 - Exam GENERAL EXAM: Alert, in no apparent distress. HEAD: Normocephalic. EYES: Normal reaction of pupils, equal size. NOSE: Clear with pink turbinates. THROAT: No erythema or exudates. NECK: No masses, no JVD. CHEST: No chest wall deformity. LUNGS: Equal air entry with no crackles, wheeze, rhonchi or dullness. CVS: S1 and S2 normal with no audible mumurs, regular rhythm. ABDOMEN: Tender to palpation. No hepatosplenomegaly, normal bowel sounds, no guarding or rigidity. SPINE: No scoliosis or deformity SKIN: No rashes CENTRAL NERVOUS SYSTEM: No focal deficits, tone is normal in all 4 extremities. Extremities: There is no significant peripheral edema. No clubbing. Peripheral pulses are intact. - Labs CBC & Chem 7: 07/07/16 04:15 07/08/16 06:19 Labs: Abnormal Lab Results - Last 24 Hours (Table) 07/07/16 07/07/16 07/07/16 Range/Units 15:56 16:55 20:04 Glucose (74-99) mg/dL POC Glucose (mg/dL) 141 H 198 H 238 H (75-99) mg/dL 07/08/16 07/08/16 07/08/16 Range/Units 06:01 06:16 06:19 Glucose 63 L (74-99) mg/dL POC Glucose (mg/dL) 37 L 51 L (75-99) mg/dL 07/08/16 07/08/16 Range/Units 07:00 11:52 Glucose (74-99) mg/dL POC Glucose (mg/dL) 103 H 223 H (75-99) mg/dL Assessment and Plan Plan: Impression: #1 Acute diabetic ketoacidosis. #2 Diabetes mellitus type 2, uncontrolled. #3 And diabetic gastroparesis. #4 Altered mental status, metabolic encephalopathy secondary to above. #5 Acute on chronic kidney disease, stage III. #6 Urine drug screen positive for cocaine. #7 Hypertension. #8 Rheumatoid arthritis. #9 History of alcohol abuse. #10 History of methicillin-resistant Staphylococcus aureus. Plan: The issue was seen and evaluated by Dr. Christopher. He is currently stable from the pulmonary and critical care standpoint. His gap is closed. He is maintaining good O2 saturations in the upper 90s on room air. Hemodynamically stable. His blood glucose levels are being addressed by medicine. We will increase his activity as tolerated. We'll continue to follow make further recommendations based on his clinical status.
[2016-07-08 17:38] LABS: Glucose,Whole Blood 197 mg/dL (75-99)
[2016-07-08] MEDS: PANTOPRAZOLE 40 MG TABLET PO SCH (18:24)
[2016-07-08 20:09] LABS: Glucose,Whole Blood 222 mg/dL (75-99)
[2016-07-09] MEDS: oxyCODONE-APAP 10-325MG 1 EACH TAB PO PRN ×4 (00:10→12:41)
[2016-07-09 02:18] LABS: Glucose,Whole Blood 154 mg/dL (75-99)
[2016-07-09 07:22] LABS: Glucose,Whole Blood 267 mg/dL (75-99)
[2016-07-09] MEDS ORDERED: INSULIN DETEMIR 100 UNIT/ML 10 ML VIAL SQ SCH (07:30)
[2016-07-09] MEDS: INSULIN LISPRO (humaLOG) 300 UNIT/3 ML VIAL SQ SCH ×2 (07:47→12:37)
[2016-07-09] MEDS: PANTOPRAZOLE 40 MG TABLET PO SCH (07:48)
[2016-07-09] MEDS: NICOTINE 14MG/24HR PATCH TRANSDERM SCH (07:49)
[2016-07-09] MEDS: amLODIPine 5 MG TAB PO SCH (07:49)
[2016-07-09] MEDS: hydrALAZINE HCL 50 MG TAB PO SCH (08:39)
--- NOTE | 2016-07-09 09:25 | PN ---
DATE OF SERVICE: 07/08/2016 This 56-year-old gentleman who was admitted with acute diabetic ketoacidosis with multiple hospital admissions, patient had change in mental status also. The patient also had cocaine positive at this time. The patient is also fluctuating diabetes also. The patient is diabetes mellitus type 1. PAST MEDICAL HISTORY: Reviewed. PHYSICAL EXAMINATION: Patient is alert and oriented x3. Pulse 95, blood pressure 139/76, respirations 16, temperature 99.4, pulse ox 96% on room air. HEENT: Conjunctivae normal. NECK: No jugular venous distention. CARDIOVASCULAR: S1 and S2, muffled. RESPIRATORY: Breath sounds diminished at the bases. Scattered rhonchi and crackles. ABDOMEN: Soft, nontender. LEGS: No edema, no swelling. NERVOUS SYSTEM: No focal deficits. LABS: WBC 13.4, phosphorus is 2. Cocaine is positive. Influenza is negative. ASSESSMENT: 1. Acute diabetic ketoacidosis with diabetes mellitus type 1 uncontrolled. 2. Change in mental status, metabolic encephalopathy secondary to diabetic ketoacidosis. 3. Chronic kidney disease, stage III. 4. Hyperkalemia for acute renal failure. 5. Hyponatremia. 6. Decreased CO2. 7. Hypocalcemia. 8. Increased WBC. 9. Increased mean corpuscular volume. 10. Positive cocaine. 11. History of noncompliance. 12. History of chronic abdominal pain secondary to diabetic gastroparesis. 13. History of rheumatoid arthritis. 14. Hypertension. 15. History of chronic back pain and degenerative joint disease. 16. History of chronic pain syndrome. 17. History of EtOH abuse. 18. History of recurrent diabetic ketoacidosis. 19. History of peptic ulcer disease. 20. History of congestive heart failure with chronic systolic dysfunction with ejection fraction of 50%. 21. History of degenerative joint disease. 22. History of methicillin-resistant Staphylococcus aureus. 23. History of adenoidectomy and tonsillectomy. 24. PREVIOUSLY NO CODE, NO CPR, NO VENT. RECOMMENDATIONS AND DISCUSSION: In this 56-year-old gentleman, who presented with multiple complex medical issues, we will monitor the patient closely. Continue the current medications and symptomatic treatment. Otherwise, at this time I would continue with home dose of insulin and monitor blood sugars closely. The patient had some hypoglycemic episodes. Guarded prognosis because of the multiple complex medical issues. Further recommendations to follow.
[2016-07-09 11:48] LABS: Glucose,Whole Blood 250 mg/dL (75-99)
[2016-07-09 14:33] VITALS: BP 125/84; PULSE 97; TEMP 98.5
--- NOTE | 2016-07-10 10:44 | DS ---
DATE OF ADMISSION: 07/06/2016 DATE OF DISCHARGE: 07/09/2016 FINAL DIAGNOSES: 1. Acute diabetic ketoacidosis, diabetes mellitus type 1, uncontrolled. 2. Change in mental status, metabolic encephalopathy, secondary to diabetic ketoacidosis. 3. Chronic kidney disease stage III. 4. Hyperkalemia secondary to acute renal failure. 5. Hyponatremia. 6. Decreased CO2. 7. Hypocalcemia. 8. Increased WBC. 9. Increased MCV. 10. Positive for cocaine. 11. History of noncompliance. 12. History of chronic abdominal pain secondary to diabetic gastroparesis. 13. History of rheumatoid arthritis. 14. Hypertension. 15. History of chronic back pain, degenerative joint disease. 16. History of chronic pain syndrome. 17. History of Ethyl alcohol abuse. 18. History of recurrent diabetic ketoacidosis. 19. History of peptic ulcer disease. 20. History of congestive heart failure with chronic systolic dysfunction, ejection fraction of 50%. 21. History of degenerative joint disease. 22. History of methicillin-resistant Staphylococcus aureus. 23. History of adenoidectomy and tonsillectomy. 24. Previously NO CODE, NO CARDIOPULMONARY RESUSCITATION, NO VENTILATOR. DISCHARGE DISPOSITION: The patient will be discharged in a stable condition with guarded prognosis. HISTORY OF PRESENT ILLNESS: This 56-year-old gentleman with a past medical history of multiple medical issues was admitted with acute diabetic ketoacidosis with change in mental status, metabolic encephalopathy. Patient also had multiple other complex medical issues as stated. Patient treated with IV insulin drip protocol. Patient improved significantly. On exam, vitals are stable. CARDIOVASCULAR SYSTEM: S1, S2, muffled. ABDOMEN: Soft. NERVOUS SYSTEM: No focal deficits. DISCHARGE ADVICE: 1. Diet is cardiac, consistent carb. 2. Activity limited until followup. 3. Follow up with Dr. Sofia Emanuel as advised. 4. Follow up with Dr. Hameed for pain management. Medications are: 1. Bentyl 20 mg q.i.d. p.r.n. 2. Humalog scale as before. 3. Lantus 25 units subQ daily. 4. Zestril 10 mg p.o. daily. 5. Reglan 10 mg q.a.c. and at bedtime. 6. Habitrol 14 daily. No smoking. 7. Prilosec 40 mg daily. 8. Norvasc 5 mg p.o. daily. 9. Apresoline 50 mg p.o. b.i.d. 10. Percocet 1 p.o. q.6 p.r.n. Once again, the patient will be discharged in a stable condition with guarded prognosis.
== END 2016-07-09 15:45 | disposition home or self-care (01) | DRG 637 ==
LOC: EC 07:36 → 6ICU 12:10 → 3SUR 07-07 12:52
PROVIDERS: ADMIT Hospitalist; ATTEND Hospitalist
PROC: 06HM33Z Insertion of Infusion Device into Right Femoral Vein, Percutaneous Approach (ICD-10-PCS; principal; 2016-07-06)
DX: E10.10 Type 1 diabetes mellitus with ketoacidosis without coma (principal); G93.41 Metabolic encephalopathy; N17.9 Acute kidney failure, unspecified; K31.84 Gastroparesis; I13.0 Hypertensive heart and chronic kidney disease with heart failure and stage 1 through stage 4 chronic kidney disease, or unspecified chronic kidney disease; I50.22 Chronic systolic (congestive) heart failure; N18.3 Chronic kidney disease, stage 3 (moderate); E10.22 Type 1 diabetes mellitus with diabetic chronic kidney disease; E10.43 Type 1 diabetes mellitus with diabetic autonomic (poly)neuropathy; E83.52 Hypercalcemia; E87.5 Hyperkalemia; E87.1 Hypo-osmolality and hyponatremia; M06.9 Rheumatoid arthritis, unspecified; G89.4 Chronic pain syndrome; M54.9 Dorsalgia, unspecified; F14.10 Cocaine abuse, uncomplicated; M19.90 Unspecified osteoarthritis, unspecified site; K21.9 Gastro-esophageal reflux disease without esophagitis; L40.9 Psoriasis, unspecified; F10.10 Alcohol abuse, uncomplicated; E86.0 Dehydration; Z91.14 Patient's other noncompliance with medication regimen; Z87.11 Personal history of peptic ulcer disease; Z86.14 Personal history of Methicillin resistant Staphylococcus aureus infection; Z87.01 Personal history of pneumonia (recurrent); Z87.898 Personal history of other specified conditions; Z59.0 Homelessness; Z16.24 Resistance to multiple antibiotics; Z79.4 Long term (current) use of insulin; Z79.899 Other long term (current) drug therapy; Z83.3 Family history of diabetes mellitus
CPT/HCPCS: 36415; 36556; 71010; 80048; 80051; 80053; 80306; 81001; 81003; 82009; 82150; 82565; 82947; 83036; 83690; 83735; 84100; 84520; 85025; 85027; 87502; 93005; 96361; 96365; 96366; 96375; 96376; 99285

== ENCOUNTER 2016-07-15 07:38 | Inpatient (IN) | payer OTHER ==
[2016-07-15] MEDS ORDERED: MORPHINE SULFATE 4 MG/ML SYRINGE IV STA (07:53)
[2016-07-15] MEDS ORDERED: SODIUM CHLORIDE 0.9% 1,000 ML IV STA (07:53)
[2016-07-15] MEDS ORDERED: PANTOPRAZOLE 40 MG/10 ML VIAL IVP STA (07:53)
[2016-07-15] MEDS ORDERED: ONDANSETRON 4 MG/2 ML VIAL IVP STA (07:53)
[2016-07-15] MEDS ORDERED: LORazepam 2 MG/ML SYRINGE IV STA (07:53)
[2016-07-15] MEDS ORDERED: SODIUM CHLORIDE 0.9% 500 ML IV STA (07:53)
--- NOTE | 2016-07-15 08:18 | ED ---
General Adult HPI - General Chief complaint: Chest Pain Stated complaint: Weakness Time Seen by Provider: 07/15/16 07:52 Source: patient, RN notes reviewed, old records reviewed Mode of arrival: EMS Limitations: no limitations - History of Present Illness Initial comments: This is a 56-year-old male the ER for evaluation of weakness not feeling well feeling sick. Patient's history of diabetes and recurrent DKA. Patient just discharged from the hospital a few days ago coming in with similar symptoms prior to discharge. Patient states he does not feel well can keep anything down excessive nausea and vomiting with pain. Patient states mild abdominal pain but nothing significant. Just generally feels sick not well and within significant lack of energy. Patient states he does take his medications and denies noncompliance - Related Data Home Medications Medication Instructions Recorded Confirmed Dicyclomine [Bentyl] 20 mg PO QID PRN 03/08/16 07/15/16 INSULIN LISPRO (humaLOG) [humaLOG See Protocol SQ ACHS 07/06/16 07/15/16 (formulary)] Insulin Glargine [Lantus] 25 unit SQ W/BRKFST 07/08/16 07/15/16 Previous Rx's Medication Instructions Recorded Omeprazole [PriLOSEC] 40 mg PO AC-BRKFST #14 capsule. 03/26/16 Lisinopril [Zestril] 10 mg PO DAILY #30 tab 06/19/16 amLODIPine [Norvasc] 5 mg PO DAILY #30 tab 06/26/16 hydrALAZINE HCL [Apresoline] 50 mg PO BID #60 tab 06/26/16 Metoclopramide [Reglan] 10 mg PO ACHS #120 tab 07/03/16 Nicotine 14Mg/24Hr Patch [Habitrol] 1 patch TRANSDERM DAILY #30 patch 07/09/16 oxyCODONE-APAP 10-325MG [Percocet 1 each PO Q6H PRN #20 tab 07/09/16 10-325 mg] Allergies Allergy/AdvReac Type Severity Reaction Status Date / Time No Known Allergies Allergy Verified 07/15/16 07:53 Review of Systems ROS Statement: Those systems with pertinent positive or pertinent negative responses have been documented in the HPI. ROS Other: All systems not noted in ROS Statement are negative. Past Medical History Past Medical History: Heart Failure, Diabetes Mellitus, Hypertension, Pneumonia , Renal Disease, Rheumatoid Arthritis (RA) Additional Past Medical History / Comment(s): Pt recently admitted 05/31/16 to [facility] with DKA/noncompliance with insulin. Pt is currently not speaking. He opens his eyes on occasion when his name is spoken. No family at bedside. All PMH is from previous medical records. PMH: IDDM type I poorly controlled, diabetic gastroparesis, bilateral feet peripheral neuropathy, blood behind both eyes, peptic ulcer disease/duodenal ulcer/gastritis with erosions, previous hospitalization for pulmonary edema and bilateral pleural effusion and subsequent evaluation showed a preserved LV function with an ejection fraction of around 50%, CKD stage III, normocytic chronic anemia, rheumatoid arthritis, DJD, chronic back pain, osteoarthritis-generalized, eczema, psoriasis, ear infections, hx of narcotic abuse, cocaine abuse and alcohol abuse. History of Any Multi-Drug Resistant Organisms: MRSA Date of last positivie culture/infection: 02/25/08 MDRO Source:: Neck Past Surgical History: Adenoidectomy, Tonsillectomy Additional Past Surgical History / Comment(s): colonoscopy 2008, EGD, lt great toe amp, and part of 2nd toe. Past Anesthesia/Blood Transfusion Reactions: No Reported Reaction Past Psychological History: No Psychological Hx Reported Additional Psychological History / Comment(s): Unknown at this time, however [facility] documents that pt is normally independent and uses no assistive device and that pt has been homeless. Smoking Status: Unknown if ever smoked Past Alcohol Use History: None Reported Additional Past Alcohol Use History / Comment(s): PT has STATED in PMH that he DRINKS OCC BUT LESS THAN 14 PER WEEK Past Drug Use History: None Reported Additional Drug Use History / Comment(s): PT PMH stated pt DENIES ANY DRUG USE IN AT LEAST 7-8 YEARS. 06/18/16 toxicology + for cocaine. 06/29/16 toxicology + or cocaine - Past Family History Father Family Medical History: Diabetes Mellitus, Hypertension Additional Family Medical History / Comment(s): father Mother Additional Family Medical History / Comment(s): pyschiatric issues. She is 76 yrs old. General Exam Limitations: no limitations General appearance: alert, in no apparent distress, anxious, lethargic Head exam: Present: atraumatic, normocephalic, normal inspection Eye exam: Present: normal appearance, PERRL, EOMI. Absent: scleral icterus, conjunctival injection, periorbital swelling ENT exam: Present: mucous membranes dry Neck exam: Present: normal inspection. Absent: tenderness, meningismus, lymphadenopathy Respiratory exam: Present: normal lung sounds bilaterally. Absent: respiratory distress, wheezes, rales, rhonchi, stridor Cardiovascular Exam: Present: normal rhythm, tachycardia, normal heart sounds. Absent: systolic murmur, diastolic murmur, rubs, gallop, clicks GI/Abdominal exam: Present: soft, normal bowel sounds. Absent: distended, tenderness, guarding, rebound, rigid Extremities exam: Present: normal inspection, full ROM, normal capillary refill. Absent: tenderness, pedal edema, joint swelling, calf tenderness Back exam: Present: normal inspection Neurological exam: Present: alert, oriented X3, CN II-XII intact Psychiatric exam: Present: normal affect, normal mood Skin exam: Present: warm, dry, intact, normal color. Absent: rash Course Vital Signs 07/15/16 07/15/16 07:40 09:00 Temperature 99.2 F Pulse Rate 107 H 96 Respiratory 18 24 Rate Blood Pressure 154/72 160/72 O2 Sat by Pulse 98 Oximetry - Reevaluation(s) Reevaluation #1: 07/15/16 10:06 Patient is a very difficult IV start Reevaluation #2: 07/15/16 10:06 Patient consult regarding noncompliance, EKG Findings - EKG Comments: EKG Findings:: EKG shows sinus tachycardia rate rate of 104, KS 136, QRS 76, QTC 449 Medical Decision Making - Medical Decision Making 56 male tear for evaluation of weakness shortness of breath chest pain multiple complaints not feeling well feeling sick dehydrated, patient and recurrent DKA, noncompliance. We'll admit for IV insulin therapy and recurrent checking of electrolytes. - Lab Data Result diagrams: 07/15/16 08:18 07/15/16 08:18 Lab Results 07/15/16 07/15/16 07/15/16 Range/Units 08:18 08:18 08:18 WBC 5.1 (3.8-10.6) k/uL RBC 3.88 L (4.30-5.90) m/uL Hgb 12.4 L (13.0-17.5) gm/dL Hct 40.9 (39.0-53.0) % MCV 105.4 H D (80.0-100.0) fL MCH 31.8 (25.0-35.0) pg MCHC 30.2 L (31.0-37.0) g/dL RDW 13.8 (11.5-15.5) % Plt Count 256 (150-450) k/uL Neutrophils % 66 % Lymphocytes % 22 % Monocytes % 6 % Eosinophils % 1 % Basophils % 1 % Neutrophils # 3.4 (1.3-7.7) k/uL Lymphocytes # 1.1 (1.0-4.8) k/uL Monocytes # 0.3 (0-1.0) k/uL Eosinophils # 0.1 (0-0.7) k/uL Basophils # 0.1 (0-0.2) k/uL Hypochromasia Marked Macrocytosis Moderate PT 10.5 (9.0-12.0) sec INR 1.0 (<1.1) APTT 23.4 (22.0-30.0) sec Sodium 131 L (137-145) mmol/L Potassium 5.7 H (3.5-5.1) mmol/L Chloride 93 L (98-107) mmol/L Carbon Dioxide 16 L (22-30) mmol/L Anion Gap 22 mmol/L BUN 28 H (9-20) mg/dL Creatinine 1.30 H (0.66-1.25) mg/dL Est GFR (MDRD) Af Amer >60 (>60 ml/min/1.73 sqM) Est GFR (MDRD) Non-Af 57 (>60 ml/min/1.73 sqM) Glucose 737 H* (74-99) mg/dL Calcium 8.8 (8.4-10.2) mg/dL Phosphorus 4.4 (2.5-4.5) mg/dL Magnesium 1.9 (1.6-2.3) mg/dL Total Bilirubin 0.8 (0.2-1.3) mg/dL AST 121 H (17-59) U/L ALT 60 (21-72) U/L Alkaline Phosphatase 134 H (38-126) U/L Total Creatine Kinase (55-170) U/L CK-MB (CK-2) (0.0-2.4) ng/mL CK-MB (CK-2) Rel Index Troponin I (0.000-0.034) ng/mL Total Protein 6.5 (6.3-8.2) g/dL Albumin 3.8 (3.5-5.0) g/dL Lipase 103 (23-300) U/L Urine Color Urine Appearance (Clear) Urine pH (5.0-8.0) Ur Specific Baxter (1.001-1.035) Urine Protein (Negative) Urine Glucose (UA) (Negative) Urine Ketones (Negative) Urine Blood (Negative) Urine Nitrate (Negative) Urine Bilirubin (Negative) Urine Urobilinogen (<2.0) mg/dL Ur Leukocyte Esterase (Negative) Urine Opiates Screen (NotDetected) Ur Oxycodone Screen (NotDetected) Urine Methadone Screen (NotDetected) Ur Propoxyphene Screen (NotDetected) Ur Barbiturates Screen (NotDetected) U Tricyclic Antidepress (NotDetected) Ur Phencyclidine Scrn (NotDetected) Ur Amphetamines Screen (NotDetected) U Methamphetamines Scrn (NotDetected) U Benzodiazepines Scrn (NotDetected) Urine Cocaine Screen (NotDetected) U Marijuana (THC) Screen (NotDetected) Serum Alcohol <10 mg/dL Acetone, Qual Positive (Negative) 07/15/16 07/15/16 Range/Units 08:18 08:20 WBC (3.8-10.6) k/uL RBC (4.30-5.90) m/uL Hgb (13.0-17.5) gm/dL Hct (39.0-53.0) % MCV (80.0-100.0) fL MCH (25.0-35.0) pg MCHC (31.0-37.0) g/dL RDW (11.5-15.5) % Plt Count (150-450) k/uL Neutrophils % % Lymphocytes % % Monocytes % % Eosinophils % % Basophils % % Neutrophils # (1.3-7.7) k/uL Lymphocytes # (1.0-4.8) k/uL Monocytes # (0-1.0) k/uL Eosinophils # (0-0.7) k/uL Basophils # (0-0.2) k/uL Hypochromasia Macrocytosis PT (9.0-12.0) sec INR (<1.1) APTT (22.0-30.0) sec Sodium (137-145) mmol/L Potassium (3.5-5.1) mmol/L Chloride (98-107) mmol/L Carbon Dioxide (22-30) mmol/L Anion Gap mmol/L BUN (9-20) mg/dL Creatinine (0.66-1.25) mg/dL Est GFR (MDRD) Af Amer (>60 ml/min/1.73 sqM) Est GFR (MDRD) Non-Af (>60 ml/min/1.73 sqM) Glucose (74-99) mg/dL Calcium (8.4-10.2) mg/dL Phosphorus (2.5-4.5) mg/dL Magnesium (1.6-2.3) mg/dL Total Bilirubin (0.2-1.3) mg/dL AST (17-59) U/L ALT (21-72) U/L Alkaline Phosphatase (38-126) U/L Total Creatine Kinase 68 (55-170) U/L CK-MB (CK-2) 1.6 (0.0-2.4) ng/mL CK-MB (CK-2) Rel Index 2.4 Troponin I <0.012 (0.000-0.034) ng/mL Total Protein (6.3-8.2) g/dL Albumin (3.5-5.0) g/dL Lipase (23-300) U/L Urine Color Colorless Urine Appearance Clear (Clear) Urine pH 5.5 (5.0-8.0) Ur Specific Baxter 1.018 (1.001-1.035) Urine Protein Negative (Negative) Urine Glucose (UA) 4+ H (Negative) Urine Ketones 2+ H (Negative) Urine Blood Negative (Negative) Urine Nitrate Negative (Negative) Urine Bilirubin Negative (Negative) Urine Urobilinogen <2.0 (<2.0) mg/dL Ur Leukocyte Esterase Negative (Negative) Urine Opiates Screen Not Detected (NotDetected) Ur Oxycodone Screen Not Detected (NotDetected) Urine Methadone Screen Not Detected (NotDetected) Ur Propoxyphene Screen Not Detected (NotDetected) Ur Barbiturates Screen Not Detected (NotDetected) U Tricyclic Antidepress Not Detected (NotDetected) Ur Phencyclidine Scrn Not Detected (NotDetected) Ur Amphetamines Screen Not Detected (NotDetected) U Methamphetamines Scrn Not Detected (NotDetected) U Benzodiazepines Scrn Not Detected (NotDetected) Urine Cocaine Screen Not Detected (NotDetected) U Marijuana (THC) Screen Not Detected (NotDetected) Serum Alcohol mg/dL Acetone, Qual (Negative) - Radiology Data Radiology results: report reviewed (Chest x-ray 2 views negative for acute disease), image reviewed Critical Care Time Critical Care Time: Yes Total Critical Care Time: 31 Disposition Clinical Impression: DKA (diabetic ketoacidoses) Disposition: ADMITTED IP TO THIS [facility] Condition: Serious Referrals: Sofia Emanuel MD [Primary Care Provider] - 1-2 days
[2016-07-15 08:46] LABS: ALT 60 U/L (21-72); AST 121 U/L (17-59); Alcohol <10 mg/dL; Alkaline Phosphatase 134 U/L (38-126); Anion Gap 22 mmol/L; Blood Urea Nitrogen 28 mg/dL (9-20); Calcium 8.8 mg/dL (8.4-10.2); Carbon Dioxide 16 mmol/L (22-30); Chloride 93 mmol/L (98-107); Magnesium 1.9 mg/dL (1.6-2.3); Non-African American GFR(MDRD) 57 (>60 ml/min/1.73 sqM); Phosphorous 4.4 mg/dL (2.5-4.5); Sodium 131 mmol/L (137-145); Total Bilirubin 0.8 mg/dL (0.2-1.3); Total Protein 6.5 g/dL (6.3-8.2)
[2016-07-15 08:54] LABS: Appearance,Urine Clear (Clear); Bilirubin,Urine Negative (Negative); Glucose,Urine (UA) 4+ (Negative); Leukocyte Esterase,Urine Negative (Negative); Nitrite,Urine Negative (Negative); PH, Urine 5.5 (5.0-8.0); Protein,Urine Negative (Negative); Specific Gravity,Urine 1.018 (1.001-1.035); UA Billing (MACRO vs. MICRO) CHEM; Urobilinogen,Urine <2.0 mg/dL (<2.0)
[2016-07-15 08:57] LABS: Glucose 737 mg/dL (74-99); Potassium 5.7 mmol/L (3.5-5.1)
[2016-07-15 08:59] LABS: Creatine Kinase 68 U/L (55-170)
[2016-07-15 09:04] LABS: Partial Thromboplastin Time 23.4 sec (22.0-30.0); Prothrombin Time 10.5 sec (9.0-12.0)
[2016-07-15 09:12] LABS: Creatine Kinase MB 1.6 ng/mL (0.0-2.4); Troponin I <0.012 ng/mL (0.000-0.034)
[2016-07-15 09:19] LABS: Ketones,Urine 2+ (Negative)
[2016-07-15] MEDS ORDERED: INSULIN REGULAR 100 UNIT/ML VIAL SQ ONE (09:21)
[2016-07-15 09:26] LABS: Basophils # (A) 0.1 k/uL (0-0.2); Basophils % (A) 1 %; CH 30.8; CHCM 29.3; Eosinophils # (A) 0.1 k/uL (0-0.7); Eosinophils % (A) 1 %; HCT 40.9 % (39.0-53.0); HDW 2.45; HGB 12.4 gm/dL (13.0-17.5); Hypochromasia Marked; Luc # (Auto) 0.16; Luc % (Auto) 3; Lymphocytes # (A) 1.1 k/uL (1.0-4.8); Lymphocytes % (A) 22 %; MCH 31.8 pg (25.0-35.0); MCHC 30.2 g/dL (31.0-37.0); Macrocytosis Moderate; Mean Platelet Volume 7.9; Monocytes # (A) 0.3 k/uL (0-1.0); Monocytes % (A) 6 %; Neutrophils # (A) 3.4 k/uL (1.3-7.7); Neutrophils % (A) 66 %; RBC 3.88 m/uL (4.30-5.90); RDW 13.8 % (11.5-15.5); WBC 5.1 k/uL (3.8-10.6); WBC (Perox) 4.65
[2016-07-15 09:28] LABS: MCV 105.4 fL (80.0-100.0)
--- NOTE | 2016-07-15 09:31 | XR ---
EXAMINATION TYPE: XR chest 2V DATE OF EXAM: 07/15/2016 8:54 AM COMPARISON: 07/06/2016 INDICATION: Weakness, chest pain TECHNIQUE: Single frontal view of the chest is obtained. FINDINGS: The heart size is normal. The pulmonary vasculature is normal. The lungs are clear. IMPRESSION: 1. No acute pulmonary process.
[2016-07-15] MEDS ORDERED: SODIUM CHLORIDE 0.9% 1,000 ML IV ONE (10:03)
[2016-07-15] MEDS ORDERED: INSULIN REGULAR 100 UNIT/ML VIAL IV ONE (10:04)
[2016-07-15] MEDS ORDERED: INSULIN REGULAR 100 UNIT in SODIUM CHLORIDE 0.9% 100 ML IV SCH (10:15)
[2016-07-15 10:17] LABS: Glucose,Whole Blood >600 mg/dL (75-99)
[2016-07-15 11:28] LABS: Glucose,Whole Blood 506 mg/dL (75-99)
[2016-07-15] MEDS: SODIUM CHLORIDE 0.9% 1,000 ML IV SCH ×3 (11:52→21:56)
[2016-07-15 12:32] LABS: Glucose,Whole Blood >600 mg/dL (75-99)
[2016-07-15 12:33] LABS: Anion Gap 17 mmol/L; Blood Urea Nitrogen 28 mg/dL (9-20); Carbon Dioxide 19 mmol/L (22-30); Chloride 101 mmol/L (98-107); Glucose 434 mg/dL (74-99); Non-African American GFR(MDRD) 57 (>60 ml/min/1.73 sqM); Phosphorous 2.8 mg/dL (2.5-4.5); Potassium 4.4 mmol/L (3.5-5.1); Sodium 137 mmol/L (137-145)
[2016-07-15 12:44] LABS: Glucose,Whole Blood 334 mg/dL (75-99)
[2016-07-15 13:59] LABS: Glucose,Whole Blood 242 mg/dL (75-99)
[2016-07-15 15:17] VITALS: BMI 25.0
[2016-07-15 15:41] LABS: Glucose,Whole Blood 164 mg/dL (75-99)
[2016-07-15 16:34] LABS: Anion Gap 8 mmol/L; Blood Urea Nitrogen 27 mg/dL (9-20); Carbon Dioxide 26 mmol/L (22-30); Chloride 107 mmol/L (98-107); Glucose 155 mg/dL (74-99); Non-African American GFR(MDRD) >60 (>60 ml/min/1.73 sqM); Phosphorous 2.3 mg/dL (2.5-4.5); Sodium 141 mmol/L (137-145)
[2016-07-15 16:34] LABS: Glucose,Whole Blood 130 mg/dL (75-99)
[2016-07-15 16:36] LABS: Potassium 4.3 mmol/L (3.5-5.1)
[2016-07-15] MEDS: PANTOPRAZOLE 40 MG TABLET PO SCH (17:22)
[2016-07-15 17:45] LABS: Glucose,Whole Blood 91 mg/dL (75-99)
[2016-07-15 19:15] LABS: Glucose,Whole Blood 178 mg/dL (75-99)
--- NOTE | 2016-07-15 19:54 | HP ---
DATE OF ADMISSION: Patient is a 56-year-old male ( ) has multiple hospitalizations, highly non-compliant with medication, has history of type 1 diabetes mellitus, came in with not feeling well ( ) patient was found to be in DKA. Patient has had multiple admissions for the same reason. Patient was discharged from multiple PCP offices in the past. I am not able to get much history from the patient, as patient ( ). Patient apparently denied any fever or chills. Denied any abdominal pain in the ER. ( ) not provide very much of the history. Patient was having excessive nausea, vomiting when he came in, and lack of energy. Home medications include dicyclomine, insulin Glargine 25 units, ( ) sliding scale insulin. However, I do not believe patient ever uses insulin. ROS: unable to obtain due to his clinical condition. HOME MEDICATIONS: 1. Omeprazole. 2. Lisinopril. 3. Amlodipine. 4. Hydralazine. 5. Reglan. 6. Nicotine transdermal patch. 7. Percocet. ALLERGIES: NO KNOWN DRUG ALLERGIES. Past medical history is significant for: 1. Type 2 diabetes mellitus. 2. Hypertension. 3. Drug abuse history in the past. 4. Gastroesophageal reflux disease. 5. Appendectomy. 6. Tonsillectomy in the past. 7. Colonoscopy. 8. EGD in the past. SOCIAL HISTORY: Denied any smoking, alcohol abuse or any drug abuse, although patient is known to use cocaine and multiple other drugs ( ) denied using IV drugs like heroin. FAMILY HISTORY: Significant for diabetes mellitus, hypertension. Mother had some psychiatric issues. PHYSICAL EXAMINATION: VITAL SIGNS: Temperature 99.2, pulse of 107, which is coming down, now at 96, respiratory rate of 24. Blood pressure is 160/73. GENERAL: Patient is drowsy, sleepy, although arousable. Does not speak much. HEENT: Pupils are round and equally reacting to light. EOMI. No scleral icterus. No conjunctival pallor. Normocephalic, atraumatic. No pharyngeal erythema. No thyromegaly. CARDIOVASCULAR: S1 and S2 present. Mildly tachycardic ( ) PULMONARY: Chest is clear to auscultation, no wheezing or crackles. ABDOMEN: Soft, nontender, nondistended, normoactive bowel sounds. No palpable organomegaly. MUSCULOSKELETAL: No joint swelling or deformity. EXTREMITIES: No cyanosis, clubbing, or pedal edema. NEUROLOGICAL: Gross neurological examination did not reveal any focal deficits. SKIN: No rashes. LABORATORY DATA: CBC, CMP are abnormal for elevated potassium of ( ) sodium of 131, BUN of ( ) INR of 28. Blood glucose 737. Patient has urine ketones. UA is negative. ASSESSMENT AND PLAN: 1. Diabetic ketoacidosis. Patient will be on DKA protocol. ( ) continued. Patient will need ( ) fluid hydration ( ) noncompliance with any kind of recommendation ( ) no matter what. Will get admitted ( ) 2. Gastroesophageal reflux disease. 3. ( ) 4. Hyperkalemia secondary to DKA which is expected to improve with IV insulin. 5. Acute renal failure due to intravascular volume depletion secondary to diabetic ketoacidosis. ( ) 6. Type 2 diabetes mellitus. PLAN: Close monitoring of electrolytes ( ) depending on which once anion gap resolves, patient will be discharged and started on subcutaneous insulin and his home regimen of Lantus and pre-meal insulin. Will discontinue IV insulin at that point of time. At that time will switch back fluids to 125 mL of normal saline per hour. MTDD
[2016-07-15 20:00] LABS: Glucose,Whole Blood 148 mg/dL (75-99)
[2016-07-15] MEDS ORDERED: DICYCLOMINE 20 MG TAB PO PRN (20:47)
[2016-07-15] MEDS: INSULIN LISPRO (humaLOG) 300 UNIT/3 ML VIAL SQ SCH (21:31)
[2016-07-15 21:35] LABS: Glucose,Whole Blood 70 mg/dL (75-99)
[2016-07-15] MEDS: INSULIN NPH 300 UNIT/3 ML VIAL SQ ONE ×2 (21:41→21:48)
[2016-07-15] MEDS: oxyCODONE-APAP 10-325MG 1 EACH TAB PO PRN (21:42)
[2016-07-15] MEDS: hydrALAZINE HCL 50 MG TAB PO SCH (21:43)
[2016-07-15] MEDS: METOCLOPRAMIDE 10 MG TAB PO SCH (21:43)
[2016-07-15] MEDS: INSULIN GLARGINE 100 UNIT/ML 10 ML VIAL SQ SCH ×2 (21:43→21:47)
[2016-07-16] MEDS: SODIUM CHLORIDE 0.9% 1,000 ML IV SCH ×5 (07:28→11:56)
[2016-07-16 07:36] LABS: Glucose,Whole Blood 401 mg/dL (75-99)
[2016-07-16] MEDS: PANTOPRAZOLE 40 MG TABLET PO SCH (07:45)
[2016-07-16] MEDS: METOCLOPRAMIDE 10 MG TAB PO SCH ×2 (07:45→13:30)
[2016-07-16] MEDS: INSULIN LISPRO (humaLOG) 300 UNIT/3 ML VIAL SQ SCH ×4 (07:46→13:31)
[2016-07-16] MEDS: hydrALAZINE HCL 50 MG TAB PO SCH (07:58)
[2016-07-16] MEDS: oxyCODONE-APAP 10-325MG 1 EACH TAB PO PRN ×2 (08:14→13:25)
[2016-07-16] MEDS: INSULIN GLARGINE 100 UNIT/ML 10 ML VIAL SQ SCH (08:15)
[2016-07-16] MEDS ORDERED: NICOTINE 14MG/24HR PATCH TRANSDERM SCH (09:00)
[2016-07-16] MEDS ORDERED: INSULIN GLARGINE 100 UNIT/ML 10 ML VIAL SQ SCH (09:00)
[2016-07-16 09:12] LABS: Hemoglobin A1C 11.2 % (4.2-6.1)
[2016-07-16] MEDS ORDERED: INSULIN LISPRO (humaLOG) 300 UNIT/3 ML VIAL SQ ONE (10:13)
[2016-07-16 10:14] LABS: Glucose,Whole Blood 301 mg/dL (75-99)
[2016-07-16 10:35] VITALS: BP 146/57; PULSE 104; RESP 16; TEMP 97.7
[2016-07-16 11:56] LABS: Glucose,Whole Blood 259 mg/dL (75-99)
[2016-07-16 12:00] LABS: Basophils % (A) 0 %; CH 31.7; CHCM 32.5; Eosinophils # (A) 0.1 k/uL (0-0.7); Eosinophils % (A) 2 %; HCT 34.9 % (39.0-53.0); HDW 2.56; HGB 11.3 gm/dL (13.0-17.5); Luc # (Auto) 0.15; Luc % (Auto) 2; Lymphocytes # (A) 1.8 k/uL (1.0-4.8); Lymphocytes % (A) 21 %; MCH 31.6 pg (25.0-35.0); MCHC 32.3 g/dL (31.0-37.0); Mean Platelet Volume 8.2; Monocytes # (A) 0.5 k/uL (0-1.0); Monocytes % (A) 6 %; Neutrophils # (A) 5.9 k/uL (1.3-7.7); Neutrophils % (A) 69 %; RBC 3.57 m/uL (4.30-5.90); RDW 14.5 % (11.5-15.5); WBC 8.4 k/uL (3.8-10.6); WBC (Perox) 8.47
[2016-07-16 12:03] LABS: MCV 97.8 fL (80.0-100.0)
[2016-07-16 12:27] LABS: Anion Gap 14 mmol/L; Blood Urea Nitrogen 19 mg/dL (9-20); Calcium 8.3 mg/dL (8.4-10.2); Carbon Dioxide 18 mmol/L (22-30); Chloride 101 mmol/L (98-107); Glucose 260 mg/dL (74-99); Non-African American GFR(MDRD) 56 (>60 ml/min/1.73 sqM); Potassium 4.7 mmol/L (3.5-5.1); Sodium 133 mmol/L (137-145)
[2016-07-16] MEDS ORDERED: MAG HYDROX/AL HYDROX/SIMETH 30 ML CUP PO ONE (13:28)
--- NOTE | 2016-07-16 18:41 | P.DS ---
Providers Date of admission: 07/15/16 10:04 Expected date of discharge: 07/16/16 Attending physician: Verónica Lomas Primary care physician: Sofia [facility] Course: Final Diagnoses: 1. DKA 2. Diabetes mellitus type 2, hemoglobin A1c 11.2 3. Acute renal failure secondary to intravascular volume depletion secondary to DKA 4.Gastroesophageal reflux disease 5. Noncompliance history 6. Acute hypoxic respiratory failure, resolved. 7. Hyperkalemia secondary to acute renal failure, resolved 8. Hyponatremia 9. History of chronic abdominal pain secondary to diabetic gastroparesis 10. Hypertension, will resume MARI inhibitor on secondary to renal function 11. History of polysubstance abuse including cocaine, EtOH, nicotine abuse 12. Chronic congestive heart failure, systolic dysfunction, EF 50%, no acute exacerbation Hospital course: This is a 56-year-old gentleman admitted with acute DKA with known history of noncompliance, hemoglobin A1c 11.2, and multiple other medical issues. Treated with DKA protocol including IV fluid hydration, anion gap resolved. Significant clinical improvement. Met with in service educator prior to discharge. PCP appointment arranged prior to discharge. Patient is being discharged home in a stable condition with guarded prognosis. The impression and plan of care has been dictated as directed. .: I performed a H&P examination of this patient and discussed the same with the dictator. I agree with the dictator's note. Any additional findings/opinions/ etc. will be noted. Patient Condition at Discharge: Stable Plan - Discharge Summary New Discharge Prescriptions: Folic Acid 1 mg PO DAILY #30 tablet Multivitamins, Thera [Multivitamin] 1 tab PO DAILY #30 tablet Thiamine [Vitamin B-1] 100 mg PO DAILY #30 tablet Discharge Medication List Dicyclomine [Bentyl] 20 mg PO QID PRN 03/08/16 [History] Omeprazole [PriLOSEC] 40 mg PO AC-BRKFST #14 capsule. 03/26/16 [Rx] Metoclopramide [Reglan] 10 mg PO ACHS #120 tab 07/03/16 [Rx] INSULIN LISPRO (humaLOG) [humaLOG (formulary)] See Protocol SQ ACHS 07/06/16 [ History] Insulin Glargine [Lantus] 25 unit SQ W/BRKFST 07/08/16 [History] Nicotine 14Mg/24Hr Patch [Habitrol] 1 patch TRANSDERM DAILY #30 patch 07/09/16 [ Rx] oxyCODONE-APAP 10-325MG [Percocet 10-325 mg] 1 each PO Q6H PRN #20 tab 07/09/16 [Rx] Folic Acid 1 mg PO DAILY #30 tablet 07/16/16 [Rx] Lisinopril [Zestril] 5 mg PO DAILY #30 tab 07/16/16 [Rx] Multivitamins, Thera [Multivitamin] 1 tab PO DAILY #30 tablet 07/16/16 [Rx] Thiamine [Vitamin B-1] 100 mg PO DAILY #30 tablet 07/16/16 [Rx] Follow up Appointment(s)/Referral(s): [facility], [NON-STAFF] - 1 Week Sofia Emanuel MD [Primary Care Provider] - 07/19/16 10:45 am Ambulatory/Diagnostic Orders: Basic Metabolic Panel [LAB.AMB] Time Frame: 3 Days, Location: Determined By Patient Patient Instructions/Handouts: Diabetic Ketoacidosis (GEN), Diabetic Foot Ulcers (DC), Hypertension (DC) Activity/Diet/Wound Care/Special Instructions: Diet: Consistent carb Accu-Cheks before meals and at bedtime Outpatient diabetes education classes Activity: Limited until follow up No smoking, no EtOH, no recreational drug use SEE DIRECTIONS PROVIDED VIA MAP IN DISCHARGE PACKET TO PRIMARY CARE PHYSICIAN 'S OFFICE. CALL INSURANCE COMPANY TO SEE IF MEDICAL TRANSPORTATION IS AVAILABLE IN POLICY. CONSIDER CHANGING PHARMACIES TO ONE THAT WILL DELIVER MEDICATIONS. Discharge Disposition: HOME WITH HOME HEALTH SERVICES
[2016-07-17] MEDS ORDERED: INSULIN GLARGINE 100 UNIT/ML 10 ML VIAL SQ SCH (09:00)
== END 2016-07-16 14:59 | disposition home health service (06) | DRG 637 ==
LOC: EC 07:38 → 6SEL 10:04 → 3SUR 07-16 05:18
PROVIDERS: ADMIT Hospitalist; ATTEND Hospitalist
DX: E10.10 Type 1 diabetes mellitus with ketoacidosis without coma (principal); J96.01 Acute respiratory failure with hypoxia; N17.9 Acute kidney failure, unspecified; I13.0 Hypertensive heart and chronic kidney disease with heart failure and stage 1 through stage 4 chronic kidney disease, or unspecified chronic kidney disease; I50.22 Chronic systolic (congestive) heart failure; K31.84 Gastroparesis; E10.43 Type 1 diabetes mellitus with diabetic autonomic (poly)neuropathy; N18.3 Chronic kidney disease, stage 3 (moderate); E87.5 Hyperkalemia; E87.1 Hypo-osmolality and hyponatremia; E10.22 Type 1 diabetes mellitus with diabetic chronic kidney disease; G89.29 Other chronic pain; L40.9 Psoriasis, unspecified; D64.9 Anemia, unspecified; K21.9 Gastro-esophageal reflux disease without esophagitis; M06.9 Rheumatoid arthritis, unspecified; E86.9 Volume depletion, unspecified; Z87.898 Personal history of other specified conditions; Z86.14 Personal history of Methicillin resistant Staphylococcus aureus infection; Z91.14 Patient's other noncompliance with medication regimen; Z91.19 Patient's noncompliance with other medical treatment and regimen; Z79.4 Long term (current) use of insulin; Z79.899 Other long term (current) drug therapy; Z83.3 Family history of diabetes mellitus
CPT/HCPCS: 36415; 71020; 80048; 80051; 80053; 80306; 80320; 81003; 82009; 82550; 82553; 82565; 82947; 83036; 83690; 83735; 84100; 84484; 84520; 85025; 85610; 85730; 87086; 93005; 96361; 96375; 96376; 99291

== ENCOUNTER 2016-07-24 15:12 | Observation (INO) | payer OTHER ==
[2016-07-24] MEDS ORDERED: MAG HYDROX/AL HYDROX/SIMETH 30 ML, HYOSCYAMINE ELIXIR 10 ML, CIMETIDINE HCL 300 MG, LID... PO STA ×4 (16:18)
[2016-07-24 17:29] LABS: Glucose,Whole Blood 141 mg/dL (75-99)
[2016-07-24 17:33] LABS: Glucose,Whole Blood 143 mg/dL (75-99)
[2016-07-24] MEDS ORDERED: SUCRALFATE 1 GM TAB PO STA (17:42)
--- NOTE | 2016-07-24 17:44 | ED ---
General Adult HPI - General Chief complaint: Recheck/Abnormal Lab/Rx Stated complaint: diabetic, hypoglycemia Time Seen by Provider: 07/24/16 16:00 Source: patient, EMS, RN notes reviewed, old records reviewed Mode of arrival: EMS Limitations: no limitations - History of Present Illness Initial comments: This is a 56-year-old male who presented with complaints of not feeling well having burning epigastric pain is gone after several days. He denies any fevers chills or sweats he was found to be hypoglycemic upon arrival. He had refused blood work for IV. No complaints of fevers chills or sweats or other symptoms. He does have a history of diabetes and DKA - Related Data Home Medications Medication Instructions Recorded Confirmed Dicyclomine [Bentyl] 20 mg PO QID PRN 03/08/16 07/24/16 INSULIN LISPRO (humaLOG) [humaLOG See Protocol SQ ACHS 07/06/16 07/24/16 (formulary)] Insulin Glargine [Lantus] 25 unit SQ W/BRKFST 07/08/16 07/24/16 Famotidine [Pepcid] 40 mg PO HS 07/24/16 07/24/16 Ibuprofen [Motrin] 800 mg PO TID PRN 07/24/16 07/24/16 Lisinopril [Zestril] 5 mg PO DAILY 07/24/16 07/24/16 Metoclopramide [Reglan] 10 mg PO ACHS 07/24/16 07/24/16 amLODIPine [Norvasc] 5 mg PO DAILY 07/24/16 07/24/16 Previous Rx's Medication Instructions Recorded Omeprazole [PriLOSEC] 40 mg PO AC-BRKFST #14 capsule. 03/26/16 Nicotine 14Mg/24Hr Patch [Habitrol] 1 patch TRANSDERM DAILY #30 patch 07/09/16 Folic Acid 1 mg PO DAILY #30 tablet 07/16/16 Multivitamins, Thera [Multivitamin] 1 tab PO DAILY #30 tablet 07/16/16 Thiamine [Vitamin B-1] 100 mg PO DAILY #30 tablet 07/16/16 Allergies Allergy/AdvReac Type Severity Reaction Status Date / Time No Known Allergies Allergy Verified 07/24/16 15:53 Review of Systems ROS Statement: Those systems with pertinent positive or pertinent negative responses have been documented in the HPI. ROS Other: All systems not noted in ROS Statement are negative. Past Medical History Past Medical History: Heart Failure, Diabetes Mellitus, Hypertension, Pneumonia , Renal Disease, Rheumatoid Arthritis (RA), Skin Disorder Additional Past Medical History / Comment(s): Pt recently admitted to [facility] on with acute DKA, metabolic encephalopathy, hyperkalemia and hyponatremia. Other HX: IDDM type I poorly controlled, DKAs, diabetic gastroparesis, bilateral feet/hands peripheral neuropathy, blood behind both eyes, peptic ulcer disease/duodenal ulcer/gastritis with erosions, previous hospitalization for pulmonary edema and bilateral pleural effusion and subsequent evaluation showed a preserved LV function with an ejection fraction of around 50%, CKD stage III, normocytic chronic anemia, rheumatoid arthritis, DJD, chronic back pain, osteoarthritis-generalized, eczema, psoriasis, ear infections, hx of narcotic abuse, cocaine abuse and alcohol abuse. History of Any Multi-Drug Resistant Organisms: MRSA Date of last positivie culture/infection: 02/25/08 MDRO Source:: Neck Past Surgical History: Adenoidectomy, Tonsillectomy Additional Past Surgical History / Comment(s): colonoscopy 2009, EGD, lt great toe amp, and part of 2nd toe. Past Anesthesia/Blood Transfusion Reactions: No Reported Reaction Past Psychological History: No Psychological Hx Reported Additional Psychological History / Comment(s): Pt staying with friends in an apartment. Smoking Status: Never smoker Past Alcohol Use History: None Reported Additional Past Alcohol Use History / Comment(s): PT has STATED in PMH that he DRINKS OCC BUT LESS THAN 14 PER WEEK Past Drug Use History: None Reported Additional Drug Use History / Comment(s): PT PMH stated pt DENIES ANY DRUG USE IN AT LEAST 7-8 YEARS. 06/18/16 toxicology + for cocaine. 06/29/16 toxicology + or cocaine. 07/06/16 toxicology + for cocaine. - Past Family History Father Family Medical History: Diabetes Mellitus, Hypertension Additional Family Medical History / Comment(s): father Mother Additional Family Medical History / Comment(s): pyschiatric issues. She is 76 yrs old. General Exam - General Exam Comments Initial Comments: This is a well-developed well-nourished awake alert anxious appearing male Limitations: no limitations General appearance: alert, in no apparent distress Head exam: Present: atraumatic, normocephalic, normal inspection Eye exam: Present: normal appearance, PERRL, EOMI. Absent: scleral icterus, conjunctival injection, periorbital swelling ENT exam: Present: normal exam, mucous membranes moist Neck exam: Present: normal inspection. Absent: tenderness, meningismus, lymphadenopathy Respiratory exam: Present: normal lung sounds bilaterally. Absent: respiratory distress, wheezes, rales, rhonchi, stridor Cardiovascular Exam: Present: regular rate, normal rhythm, normal heart sounds. Absent: systolic murmur, diastolic murmur, rubs, gallop, clicks GI/Abdominal exam: Present: soft, tenderness (Be gastric tenderness palpation), normal bowel sounds. Absent: distended, guarding, rebound, rigid Extremities exam: Present: normal inspection, full ROM, normal capillary refill. Absent: tenderness, pedal edema, joint swelling, calf tenderness Back exam: Present: normal inspection Neurological exam: Present: alert, oriented X3, CN II-XII intact Psychiatric exam: Present: normal affect, normal mood Skin exam: Present: warm, dry, intact, normal color. Absent: rash Course Vital Signs 07/24/16 07/24/16 07/24/16 15:16 16:29 17:30 Temperature 99.0 F Pulse Rate 81 80 82 Respiratory 18 18 18 Rate Blood Pressure 144/83 140/67 116/65 O2 Sat by Pulse 100 Oximetry 07/24/16 07/24/16 07/24/16 18:39 20:03 22:46 Temperature 98.3 F 97.4 F L Pulse Rate 76 80 75 Respiratory 18 18 22 Rate Blood Pressure 112/79 116/81 127/73 O2 Sat by Pulse 98 100 97 Oximetry 07/24/16 22:53 Temperature Pulse Rate 66 Respiratory 16 Rate Blood Pressure 127/76 O2 Sat by Pulse 100 Oximetry - Reevaluation(s) Reevaluation #1: 07/24/16 22:59 Patient continued complaining of burning epigastric pain in spite of various medication. Reevaluation #2: 07/24/16 22:59 Patient was noted to be less responsive his Accu-Chek was 21. He was given D50. Medical Decision Making - Medical Decision Making Patient was noted to have a fever there was slight. He persists in having epigastric pain and hypoglycemic episodes he initially refused to have any IV or blood work done but finally relented after the abdominal pain would not resolve. He also agreed to have x-rays. He will be admitted I did discuss case Dr. Rg I will start him on IV antibiotics also. A monitor his blood sugar - Lab Data Result diagrams: 07/24/16 19:55 07/24/16 19:55 Lab Results 07/24/16 07/24/16 07/24/16 Range/Units 16:11 17:31 19:55 WBC (3.8-10.6) k/uL RBC (4.30-5.90) m/uL Hgb (13.0-17.5) gm/dL Hct (39.0-53.0) % MCV (80.0-100.0) fL MCH (25.0-35.0) pg MCHC (31.0-37.0) g/dL RDW (11.5-15.5) % Plt Count (150-450) k/uL Neutrophils % % Lymphocytes % % Monocytes % % Eosinophils % % Basophils % % Neutrophils # (1.3-7.7) k/uL Lymphocytes # (1.0-4.8) k/uL Monocytes # (0-1.0) k/uL Eosinophils # (0-0.7) k/uL Basophils # (0-0.2) k/uL Macrocytosis Sodium (137-145) mmol/L Potassium (3.5-5.1) mmol/L Chloride (98-107) mmol/L Carbon Dioxide (22-30) mmol/L Anion Gap mmol/L BUN (9-20) mg/dL Creatinine (0.66-1.25) mg/dL Est GFR (MDRD) Af Amer (>60 ml/min/1.73 sqM) Est GFR (MDRD) Non-Af (>60 ml/min/1.73 sqM) Glucose (74-99) mg/dL POC Glucose (mg/dL) 141 H 143 H (75-99) mg/dL POC Glu Rehabilitation Inspector ID Jeanette Aaron Emily Calcium (8.4-10.2) mg/dL Magnesium (1.6-2.3) mg/dL Total Bilirubin (0.2-1.3) mg/dL AST (17-59) U/L ALT (21-72) U/L Alkaline Phosphatase (38-126) U/L Total Creatine Kinase (55-170) U/L CK-MB (CK-2) (0.0-2.4) ng/mL CK-MB (CK-2) Rel Index Troponin I (0.000-0.034) ng/mL NT-Pro-B Natriuret Pep 596 pg/mL Total Protein (6.3-8.2) g/dL Albumin (3.5-5.0) g/dL Amylase (30-110) U/L Lipase (23-300) U/L 07/24/16 07/24/16 07/24/16 Range/Units 19:55 19:55 19:55 WBC 6.1 (3.8-10.6) k/uL RBC 3.65 L (4.30-5.90) m/uL Hgb 11.8 L (13.0-17.5) gm/dL Hct 35.9 L (39.0-53.0) % MCV 98.6 (80.0-100.0) fL MCH 32.5 (25.0-35.0) pg MCHC 33.0 (31.0-37.0) g/dL RDW 15.3 (11.5-15.5) % Plt Count 308 (150-450) k/uL Neutrophils % 59 % Lymphocytes % 28 % Monocytes % 6 % Eosinophils % 5 % Basophils % 1 % Neutrophils # 3.6 (1.3-7.7) k/uL Lymphocytes # 1.7 (1.0-4.8) k/uL Monocytes # 0.4 (0-1.0) k/uL Eosinophils # 0.3 (0-0.7) k/uL Basophils # 0.0 (0-0.2) k/uL Macrocytosis Slight Sodium 139 (137-145) mmol/L Potassium 4.7 (3.5-5.1) mmol/L Chloride 106 (98-107) mmol/L Carbon Dioxide 25 (22-30) mmol/L Anion Gap 8 mmol/L BUN 20 (9-20) mg/dL Creatinine 1.05 (0.66-1.25) mg/dL Est GFR (MDRD) Af Amer >60 (>60 ml/min/1.73 sqM) Est GFR (MDRD) Non-Af >60 (>60 ml/min/1.73 sqM) Glucose 107 H (74-99) mg/dL POC Glucose (mg/dL) (75-99) mg/dL POC Glu Rehabilitation Inspector ID Calcium 9.0 (8.4-10.2) mg/dL Magnesium 2.0 (1.6-2.3) mg/dL Total Bilirubin 0.3 (0.2-1.3) mg/dL AST 45 (17-59) U/L ALT 41 (21-72) U/L Alkaline Phosphatase 92 (38-126) U/L Total Creatine Kinase 227 H (55-170) U/L CK-MB (CK-2) 2.7 H* (0.0-2.4) ng/mL CK-MB (CK-2) Rel Index 1.2 Troponin I <0.012 (0.000-0.034) ng/mL NT-Pro-B Natriuret Pep pg/mL Total Protein 6.2 L (6.3-8.2) g/dL Albumin 3.2 L (3.5-5.0) g/dL Amylase 59 (30-110) U/L Lipase 53 (23-300) U/L 07/24/16 07/24/16 07/24/16 Range/Units 22:44 23:01 23:44 WBC (3.8-10.6) k/uL RBC (4.30-5.90) m/uL Hgb (13.0-17.5) gm/dL Hct (39.0-53.0) % MCV (80.0-100.0) fL MCH (25.0-35.0) pg MCHC (31.0-37.0) g/dL RDW (11.5-15.5) % Plt Count (150-450) k/uL Neutrophils % % Lymphocytes % % Monocytes % % Eosinophils % % Basophils % % Neutrophils # (1.3-7.7) k/uL Lymphocytes # (1.0-4.8) k/uL Monocytes # (0-1.0) k/uL Eosinophils # (0-0.7) k/uL Basophils # (0-0.2) k/uL Macrocytosis Sodium (137-145) mmol/L Potassium (3.5-5.1) mmol/L Chloride (98-107) mmol/L Carbon Dioxide (22-30) mmol/L Anion Gap mmol/L BUN (9-20) mg/dL Creatinine (0.66-1.25) mg/dL Est GFR (MDRD) Af Amer (>60 ml/min/1.73 sqM) Est GFR (MDRD) Non-Af (>60 ml/min/1.73 sqM) Glucose (74-99) mg/dL POC Glucose (mg/dL) 21 L 98 57 L (75-99) mg/dL POC Glu Rehabilitation Inspector NAPOLEON Yifan, Coty Saha, Myranda Chavez Calcium (8.4-10.2) mg/dL Magnesium (1.6-2.3) mg/dL Total Bilirubin (0.2-1.3) mg/dL AST (17-59) U/L ALT (21-72) U/L Alkaline Phosphatase (38-126) U/L Total Creatine Kinase (55-170) U/L CK-MB (CK-2) (0.0-2.4) ng/mL CK-MB (CK-2) Rel Index Troponin I (0.000-0.034) ng/mL NT-Pro-B Natriuret Pep pg/mL Total Protein (6.3-8.2) g/dL Albumin (3.5-5.0) g/dL Amylase (30-110) U/L Lipase (23-300) U/L - EKG Data -: EKG Interpreted by Pa EKG shows normal: sinus rhythm (EKG shows a normal sinus rhythm of 72 FL interval 154 QRS duration 86 daily since QTC of 36/422 no acute changes as compared to an EKG dated 07/15/16 with no changes except for this is a normal sinus not a tachycardic rate) - Radiology Data Radiology results: report reviewed (X-ray showed evidence of congestive failure patient states he has a cough), image reviewed Disposition Clinical Impression: Hypoglycemia, Abdominal pain Disposition: ADMITTED IP TO THIS [facility] Condition: Stable Referrals: None,Stated [Primary Care Provider] - 1-2 days
--- NOTE | 2016-07-24 18:28 | XR ---
EXAMINATION TYPE: XR chest 2V DATE OF EXAM: 07/24/2016 6:11 PM COMPARISON: 07/15/2016 HISTORY: Cough. Low blood sugar. TECHNIQUE: Frontal and lateral views of the chest are obtained. FINDINGS: Heart is top normal in size. There is bilateral pulmonary edema. This appears new compared to last exam. There are thickened posterior ribs on the right side related to healing fractures. The re are no hilar masses. There is no pleural effusion. IMPRESSION: There is new mild pulmonary edema compared to last exam at could relate to acute heart f ailure. Healing posterior right rib fractures.
[2016-07-24 20:06] LABS: Basophils % (A) 1 %; CH 31.7; CHCM 32.3; Eosinophils # (A) 0.3 k/uL (0-0.7); Eosinophils % (A) 5 %; HCT 35.9 % (39.0-53.0); HDW 2.61; HGB 11.8 gm/dL (13.0-17.5); Luc # (Auto) 0.14; Luc % (Auto) 2; Lymphocytes # (A) 1.7 k/uL (1.0-4.8); Lymphocytes % (A) 28 %; MCH 32.5 pg (25.0-35.0); MCV 98.6 fL (80.0-100.0); Macrocytosis Slight; Mean Platelet Volume 7.4; Monocytes # (A) 0.4 k/uL (0-1.0); Monocytes % (A) 6 %; Neutrophils # (A) 3.6 k/uL (1.3-7.7); Neutrophils % (A) 59 %; RBC 3.65 m/uL (4.30-5.90); RDW 15.3 % (11.5-15.5); WBC 6.1 k/uL (3.8-10.6); WBC (Perox) 6.19
[2016-07-24 20:15] LABS: ALT 41 U/L (21-72); AST 45 U/L (17-59); Alkaline Phosphatase 92 U/L (38-126); Amylase 59 U/L (30-110); Anion Gap 8 mmol/L; Blood Urea Nitrogen 20 mg/dL (9-20); Carbon Dioxide 25 mmol/L (22-30); Chloride 106 mmol/L (98-107); Glucose 107 mg/dL (74-99); Non-African American GFR(MDRD) >60 (>60 ml/min/1.73 sqM); Potassium 4.7 mmol/L (3.5-5.1); Sodium 139 mmol/L (137-145); Total Bilirubin 0.3 mg/dL (0.2-1.3); Total Protein 6.2 g/dL (6.3-8.2)
[2016-07-24 20:28] LABS: Creatine Kinase 227 U/L (55-170)
[2016-07-24 20:41] LABS: Troponin I <0.012 ng/mL (0.000-0.034)
[2016-07-24 20:52] LABS: Creatine Kinase MB 2.7 ng/mL (0.0-2.4)
[2016-07-24] MEDS ORDERED: FAMOTIDINE 20 MG/2 ML VIAL IV STA (22:01)
[2016-07-24] MEDS ORDERED: HYDROmorphone 1 MG/ML 1 ML SYRINGE IVP STA (22:01)
[2016-07-24] MEDS ORDERED: METOCLOPRAMIDE 5 MG/ML 2 ML VIAL IVP STA (22:16)
[2016-07-24] MEDS ORDERED: DEXTROSE 50%-WATER 50 ML SYRINGE IVP STA (22:47)
[2016-07-24 22:48] LABS: Glucose,Whole Blood 21 mg/dL (75-99)
[2016-07-24] MEDS ORDERED: ONDANSETRON 4 MG/2 ML VIAL IVP PRN (23:01)
[2016-07-24] MEDS ORDERED: NALOXONE 0.4 MG/ML 1 ML VIAL IV PRN (23:01)
[2016-07-24 23:04] LABS: Glucose,Whole Blood 98 mg/dL (75-99)
[2016-07-24] MEDS ORDERED: DICYCLOMINE 20 MG TAB PO PRN (23:05)
[2016-07-24] MEDS ORDERED: DEXTROSE 5%-0.45% NACL 1,000 ML IV SCH (23:15)
[2016-07-24 23:45] LABS: Glucose,Whole Blood 57 mg/dL (75-99)
[2016-07-25 00:35] LABS: Glucose,Whole Blood 73 mg/dL (75-99)
[2016-07-25 01:22] LABS: Glucose,Whole Blood 89 mg/dL (75-99)
[2016-07-25] MEDS: HYDROmorphone 1 MG/ML 1 ML SYRINGE IV PRN ×3 (01:50→08:55)
[2016-07-25] MEDS ORDERED: IBUPROFEN 800 MG TAB PO PRN (01:55)
[2016-07-25 02:18] LABS: Glucose,Whole Blood 135 mg/dL (75-99)
[2016-07-25 06:57] LABS: Glucose,Whole Blood 243 mg/dL (75-99)
[2016-07-25 07:14] VITALS: BP 131/86; PULSE 72; RESP 18; TEMP 98.4
[2016-07-25] MEDS ORDERED: INSULIN LISPRO (humaLOG) 300 UNIT/3 ML VIAL SQ SCH (07:30)
[2016-07-25] MEDS ORDERED: INSULIN GLARGINE 100 UNIT/ML 10 ML VIAL SQ SCH (07:30)
[2016-07-25 08:04] LABS: Hemoglobin A1C 10.1 % (4.2-6.1)
[2016-07-25] MEDS ORDERED: PANTOPRAZOLE 40 MG/10 ML VIAL IV SCH (09:00)
[2016-07-25] MEDS ORDERED: amLODIPine 5 MG TAB PO SCH (09:00)
[2016-07-25] MEDS ORDERED: THIAMINE 100 MG TAB PO SCH (09:00)
[2016-07-25] MEDS ORDERED: LISINOPRIL 5 MG TAB PO SCH (09:00)
[2016-07-25] MEDS ORDERED: FOLIC ACID 1 MG TAB PO SCH (09:00)
[2016-07-25] MEDS ORDERED: NICOTINE 14MG/24HR PATCH TRANSDERM SCH (09:00)
[2016-07-25] MEDS ORDERED: MULTIVITAMINS, THERA 1 EACH TAB PO SCH (09:00)
[2016-07-25 11:40] LABS: Glucose,Whole Blood 77 mg/dL (75-99)
[2016-07-25 12:10] LABS: Glucose,Whole Blood 132 mg/dL (75-99)
[2016-07-25] MEDS ORDERED: MAG HYDROX/AL HYDROX/SIMETH 30 ML CUP PO SCH (13:00)
--- NOTE | 2016-07-25 14:34 | HP ---
HISTORY AND PHYSICAL/DISCHARGE SUMMARY: DATE OF ADMISSION: This patient is a 56-year-old, came in with complaints of epigastric burning sensation along with nausea, vomiting secondary to gastritis. Ibuprofen will be discontinued and patient is already on Prilosec and patient will be started Maalox and patient will be discharged. Patient has multiple admissions in the past for DKA. Patient denied any fever, chills. Patient denied any nausea, vomiting and I am not sure why patient was started on antibiotics. I do not see any evidence of infection at this point of time. Patient will be discharged without any antibiotics and patient is highly noncompliant and patient does have narcotic-seeking behavior. I will discontinue the Dilaudid here and patient will be discharged to follow with Dr. Sofia Emanuel as an outpatient. REVIEW OF SYSTEMS: CONSTITUTIONAL: No fever, no malaise, no fatigue. HEENT: No recent visual problems or hearing problems. Denied any sore throat. CARDIOVASCULAR: No chest pain, orthopnea, PND, no palpitations, no syncope. PULMONARY: No shortness of breath, no cough, no hemoptysis. GASTROINTESTINAL: As described in HPI. NEUROLOGICAL: No headaches, no weakness, no numbness. HEMATOLOGICAL: Denies any bleeding or petechiae. GENITOURINARY: Denies any burning micturition, frequency, or urgency. MUSCULOSKELETAL/RHEUMATOLOGICAL: Denies any joint pain, swelling, or any muscle pain. ENDOCRINE: Denies any polyuria or polydipsia. The rest of the 14 point review of systems is negative. Home medications include dicyclomine, insulin lispro, glargine, famotidine, ibuprofen, lisinopril, metoclopramide, amlodipine, omeprazole, nicotine transdermal patch, folic acid, multivitamins and thiamine. ALLERGIES: No known drug allergies. PAST MEDICAL HISTORY: Type 1 diabetes mellitus, multiple admissions for DKA, hypertension, gastroesophageal reflux disease. Multi-drug abuse in the past. Patient had MRSA in the past. SOCIAL HISTORY: Patient denied any smoking. Denied any alcohol abuse or any drug abuse although patient has multiple times his drug screen was positive. This time it was not tested. Lipase and amylase are negative. FAMILY HISTORY: Father had diabetes mellitus and hypertension. Mother had psychiatric issues. PHYSICAL EXAMINATION: VITAL SIGNS: Temperature 98.4, pulse of 70, respiratory rate of 18, blood pressure is 131/86, saturating at 98% on room air. GENERAL: The patient is alert and oriented x3, not in any acute distress. Well developed, well nourished. HEENT: Pupils are round and equally reacting to light. EOMI. No scleral icterus. No conjunctival pallor. Normocephalic, atraumatic. No pharyngeal erythema. No thyromegaly. CARDIOVASCULAR: S1 and S2 present. No murmurs, rubs, or gallops. PULMONARY: Chest is clear to auscultation, no wheezing or crackles. ABDOMEN: Soft, nontender, nondistended, normoactive bowel sounds. No palpable organomegaly. MUSCULOSKELETAL: No joint swelling or deformity. EXTREMITIES: No cyanosis, clubbing, or pedal edema. NEUROLOGICAL: Gross neurological examination did not reveal any focal deficits. SKIN: No rashes. LABORATORY DATA: CBC, CMP, essentially within normal limits. CK is minimally elevated to 227, amylase and lipase are essentially within normal limits. ASSESSMENT AND PLAN: 1. Gastritis or peptic ulcer because for which patient will be started on Maalox and ( ). Patient will be discharged today. 2. Diabetic ketoacidosis. 3. Type 1 diabetes mellitus. 4. ( ) noncompliance with medications. 5. History of multiple drug abuse. Patient will be discharged today. Patient's ibuprofen will be discontinued. Patient will be started on Maalox. Patient already has Prilosec at home. Diabetic diet. Activity as tolerated. Follow with Dr. Sofia Emanuel as an outpatient. This dictation is both H&P and Discharge Summary.
== END 2016-07-25 13:17 | disposition home health service (06) ==
LOC: EC 15:12 → 4MS4W 23:01
PROVIDERS: ADMIT Hospitalist; ATTEND Hospitalist
DX: K29.70 Gastritis, unspecified, without bleeding (principal); K27.9 Peptic ulcer, site unspecified, unspecified as acute or chronic, without hemorrhage or perforation; E10.10 Type 1 diabetes mellitus with ketoacidosis without coma; E10.43 Type 1 diabetes mellitus with diabetic autonomic (poly)neuropathy; K31.84 Gastroparesis; E10.42 Type 1 diabetes mellitus with diabetic polyneuropathy; E10.22 Type 1 diabetes mellitus with diabetic chronic kidney disease; I11.0 Hypertensive heart disease with heart failure; I50.9 Heart failure, unspecified; I12.9 Hypertensive chronic kidney disease with stage 1 through stage 4 chronic kidney disease, or unspecified chronic kidney disease; N18.3 Chronic kidney disease, stage 3 (moderate); K21.9 Gastro-esophageal reflux disease without esophagitis; Z91.14 Patient's other noncompliance with medication regimen; Z76.5 Malingerer [conscious simulation]; Z79.899 Other long term (current) drug therapy; Z79.4 Long term (current) use of insulin; Z82.49 Family history of ischemic heart disease and other diseases of the circulatory system; Z83.3 Family history of diabetes mellitus
CPT/HCPCS: 36415 ×2; 93005; 83880; 80053; 82150; 83036; 82550; 82553; 83690; 83735; 84484; 85025; 71020; 99285; 96365; 96367; 96375 ×4; G0378 ×2; J2765; J0696; J1170 ×2; C9113; 96376

== ENCOUNTER 2016-08-05 17:30 | Inpatient (IN) | payer OTHER ==
[2016-08-05] MEDS ORDERED: METOCLOPRAMIDE 5 MG/ML 2 ML VIAL IVP STA (18:10)
[2016-08-05] MEDS ORDERED: SODIUM CHLORIDE 0.9% 2,000 ML IV STA (18:10)
[2016-08-05 18:24] LABS: Basophils % (A) 1 %; CHCM 29.5; Eosinophils # (A) 0.2 k/uL (0-0.7); Eosinophils % (A) 4 %; HCT 47.1 % (39.0-53.0); HDW 2.54; HGB 14.2 gm/dL (13.0-17.5); Hypochromasia Marked; Luc # (Auto) 0.14; Luc % (Auto) 3; Lymphocytes # (A) 1.9 k/uL (1.0-4.8); Lymphocytes % (A) 44 %; MCH 31.7 pg (25.0-35.0); MCHC 30.1 g/dL (31.0-37.0); Macrocytosis Moderate; Monocytes # (A) 0.2 k/uL (0-1.0); Monocytes % (A) 4 %; Neutrophils % (A) 45 %; RBC 4.47 m/uL (4.30-5.90); RDW 13.6 % (11.5-15.5); WBC 4.4 k/uL (3.8-10.6); WBC (Perox) 4.36
--- NOTE | 2016-08-05 18:24 | ED ---
General Adult HPI - General Chief complaint: Recheck/Abnormal Lab/Rx Stated complaint: hyperglycemic Time Seen by Provider: 08/05/16 18:04 Source: patient, EMS, RN notes reviewed Mode of arrival: EMS Limitations: no limitations - History of Present Illness Initial comments: 56-year-old male presents to emergency Department chief complaint hyperglycemia. Patient has a history of DKA. This includes had nausea vomiting and diarrhea. He states for the past 2 days. Patient states that he feels is too high. Patient also admits that he is feeling weak. Patient states he is not currently having any other symptoms at this time. Patient denies any fever chills with this. Patient denies any recent fever, chills, shortness of breath, chest pain, back pain, abdominal pain, nausea vomiting, numbness or tingling, dysuria or hematuria, constipation or diarrhea, headaches or visual changes, or any other current symptoms. - Related Data Home Medications Medication Instructions Recorded Confirmed Insulin Glargine [Lantus] 25 unit SQ W/BRKFST 07/08/16 08/05/16 Famotidine [Pepcid] 40 mg PO HS 07/24/16 08/05/16 Metoclopramide [Reglan] 10 mg PO ACHS 07/24/16 08/05/16 Gabapentin 600 mg PO TID 08/05/16 08/05/16 Ibuprofen [Motrin] 800 mg PO Q8H PRN 08/05/16 08/05/16 Insulin Aspart [NovoLOG] See Protocol SQ AC-TID 08/05/16 08/05/16 Metoprolol Tartrate [Lopressor] 25 mg PO BID 08/05/16 08/05/16 traZODone HCL [Desyrel] 200 mg PO HS 08/05/16 08/05/16 Previous Rx's Medication Instructions Recorded Folic Acid 1 mg PO DAILY #30 tablet 07/16/16 Multivitamins, Thera [Multivitamin 1 tab PO DAILY #30 tablet 07/16/16 (formulary)] Thiamine [Vitamin B-1] 100 mg PO DAILY #30 tablet 07/16/16 Lisinopril [Zestril] 10 mg PO DAILY #30 tab 07/25/16 Mag Hydrox/Al Hydrox/Simeth 5 ml PO TID #200 ml 07/25/16 [Maalox] Omeprazole [PriLOSEC] 40 mg PO AC-BRKFST #30 capsule. 07/25/16 Polyethylene Glycol 3350 [Miralax] 17 gm PO DAILY PRN #30 packet 07/25/16 Allergies Allergy/AdvReac Type Severity Reaction Status Date / Time No Known Allergies Allergy Verified 08/05/16 18:02 Review of Systems ROS Statement: Those systems with pertinent positive or pertinent negative responses have been documented in the HPI. ROS Other: All systems not noted in ROS Statement are negative. Past Medical History Past Medical History: Heart Failure, Diabetes Mellitus, Hypertension, Pneumonia , Renal Disease, Rheumatoid Arthritis (RA), Skin Disorder Additional Past Medical History / Comment(s): Pt recently admitted to [facility] on with acute DKA, metabolic encephalopathy, hyperkalemia and hyponatremia. Other HX: IDDM type I poorly controlled, DKAs, diabetic gastroparesis, bilateral feet/hands peripheral neuropathy, blood behind both eyes, peptic ulcer disease/duodenal ulcer/gastritis with erosions, previous hospitalization for pulmonary edema and bilateral pleural effusion and subsequent evaluation showed a preserved LV function with an ejection fraction of around 50%, CKD stage III, normocytic chronic anemia, rheumatoid arthritis, DJD, chronic back pain, osteoarthritis-generalized, eczema, psoriasis, ear infections, hx of narcotic abuse, cocaine abuse and alcohol abuse. History of Any Multi-Drug Resistant Organisms: MRSA Date of last positivie culture/infection: 02/25/08 MDRO Source:: Neck Past Surgical History: Adenoidectomy, Tonsillectomy Additional Past Surgical History / Comment(s): colonoscopy 2008, EGD, lt great toe amp, and part of 2nd toe. Past Anesthesia/Blood Transfusion Reactions: No Reported Reaction Past Psychological History: No Psychological Hx Reported Additional Psychological History / Comment(s): Pt staying with friends in an apartment. Smoking Status: Never smoker Past Alcohol Use History: None Reported Additional Past Alcohol Use History / Comment(s): PT has STATED in PMH that he DRINKS OCC BUT LESS THAN 14 PER WEEK Past Drug Use History: None Reported Additional Drug Use History / Comment(s): PT PMH stated pt DENIES ANY DRUG USE IN AT LEAST 7-8 YEARS. 06/18/16 toxicology + for cocaine. 06/29/16 toxicology + or cocaine. 07/06/16 toxicology + for cocaine. - Past Family History Father Family Medical History: Diabetes Mellitus, Hypertension Additional Family Medical History / Comment(s): father Mother Additional Family Medical History / Comment(s): pyschiatric issues. She is 76 yrs old. General Exam - General Exam Comments Initial Comments: General: The patient is awake and alert, in no distress, and does not appear acutely ill. Eye: Pupils are equal, round and reactive to light, extra-ocular movements are intact; there is normal conjunctiva bilaterally. No signs of icterus. Ears, nose, mouth and throat: There are moist mucous membranes. Neck: The neck is supple, there is no tenderness. Cardiovascular: There is a regular rate and rhythm. No murmur, rub or gallop is appreciated. Respiratory: Lungs are clear to auscultation, respirations are non-labored, breath sounds are equal. No wheezes, stridor, rales, or rhonchi. Gastrointestinal: Soft, non-distended, non-tender abdomen without masses or organomegaly noted. There is no rebound or guarding present. No CVA tenderness. Bowel sounds are unremarkable. Back: There is no tenderness to palpation in the midline. There is no obvious deformity. No rashes noted. Musculoskeletal: Normal ROM, no tenderness, There is no pedal edema. There is no calf tenderness or swelling. Sensation intact. Pulses equal bilaterally 2+. Neurological: CN II-XII intact, There are no obvious motor or sensory deficits. Coordination appears grossly intact. Speech is normal. Skin: Skin is warm and dry and no rashes or lesions are noted. Psychiatric: Cooperative, appropriate mood & affect, normal judgment. Limitations: no limitations Course Vital Signs 08/05/16 08/05/16 17:35 20:46 Temperature 98.5 F 99.4 F Pulse Rate 76 78 Respiratory 18 18 Rate Blood Pressure 127/65 151/77 O2 Sat by Pulse 100 99 Oximetry Medical Decision Making - Medical Decision Making 56-year-old male presents emergency Department chief complaint of hyperglycemia. This and the patient does appear to be in DKA. We'll continue IV hydration and insulin for the patient. This time we will continue to assess labs and I'm night. Patient agreed with the plan. - Lab Data Result diagrams: 08/05/16 18:10 08/05/16 18:10 Lab Results 08/05/16 08/05/16 08/05/16 Range/Units 18:10 18:10 18:10 WBC 4.4 (3.8-10.6) k/uL RBC 4.47 (4.30-5.90) m/uL Hgb 14.2 (13.0-17.5) gm/dL Hct 47.1 (39.0-53.0) % MCV 105.3 H D (80.0-100.0) fL MCH 31.7 (25.0-35.0) pg MCHC 30.1 L (31.0-37.0) g/dL RDW 13.6 (11.5-15.5) % Plt Count 303 (150-450) k/uL Neutrophils % 45 % Lymphocytes % 44 % Monocytes % 4 % Eosinophils % 4 % Basophils % 1 % Neutrophils # 2.0 (1.3-7.7) k/uL Lymphocytes # 1.9 (1.0-4.8) k/uL Monocytes # 0.2 (0-1.0) k/uL Eosinophils # 0.2 (0-0.7) k/uL Basophils # 0.0 (0-0.2) k/uL Hypochromasia Marked Macrocytosis Moderate VBG pH (7.31-7.41) VBG pCO2 (37-51) mmHg VBG HCO3 (24-28) mmol/L Sodium 128 L (137-145) mmol/L Potassium 5.4 H (3.5-5.1) mmol/L Chloride 91 L (98-107) mmol/L Carbon Dioxide 10 L* (22-30) mmol/L Anion Gap 27 mmol/L BUN 27 H (9-20) mg/dL Creatinine 1.79 H (0.66-1.25) mg/dL Est GFR (MDRD) Af Amer 48 (>60 ml/min/1.73 sqM) Est GFR (MDRD) Non-Af 39 (>60 ml/min/1.73 sqM) Glucose 703 H* (74-99) mg/dL POC Glucose (mg/dL) (75-99) mg/dL POC Glu Wax Blender ID Plasma Lactic Acid Eliazar (0.7-2.0) mmol/L Calcium 9.8 (8.4-10.2) mg/dL Phosphorus 4.7 H (2.5-4.5) mg/dL Magnesium 2.0 (1.6-2.3) mg/dL Total Bilirubin 0.9 (0.2-1.3) mg/dL AST 19 (17-59) U/L ALT 31 (21-72) U/L Alkaline Phosphatase 139 H (38-126) U/L Total Protein 7.6 (6.3-8.2) g/dL Albumin 4.4 (3.5-5.0) g/dL Amylase 60 (30-110) U/L Lipase 54 (23-300) U/L Acetone, Qual Positive (Negative) 08/05/16 08/05/16 08/05/16 Range/Units 18:20 18:24 20:11 WBC (3.8-10.6) k/uL RBC (4.30-5.90) m/uL Hgb (13.0-17.5) gm/dL Hct (39.0-53.0) % MCV (80.0-100.0) fL MCH (25.0-35.0) pg MCHC (31.0-37.0) g/dL RDW (11.5-15.5) % Plt Count (150-450) k/uL Neutrophils % % Lymphocytes % % Monocytes % % Eosinophils % % Basophils % % Neutrophils # (1.3-7.7) k/uL Lymphocytes # (1.0-4.8) k/uL Monocytes # (0-1.0) k/uL Eosinophils # (0-0.7) k/uL Basophils # (0-0.2) k/uL Hypochromasia Macrocytosis VBG pH (7.31-7.41) VBG pCO2 (37-51) mmHg VBG HCO3 (24-28) mmol/L Sodium (137-145) mmol/L Potassium (3.5-5.1) mmol/L Chloride (98-107) mmol/L Carbon Dioxide (22-30) mmol/L Anion Gap mmol/L BUN (9-20) mg/dL Creatinine (0.66-1.25) mg/dL Est GFR (MDRD) Af Amer (>60 ml/min/1.73 sqM) Est GFR (MDRD) Non-Af (>60 ml/min/1.73 sqM) Glucose (74-99) mg/dL POC Glucose (mg/dL) >600 H 517 H (75-99) mg/dL POC Glu Wax Blender Cynthia Thompson Danielle Plasma Lactic Acid Eliazar 1.4 (0.7-2.0) mmol/L Calcium (8.4-10.2) mg/dL Phosphorus (2.5-4.5) mg/dL Magnesium (1.6-2.3) mg/dL Total Bilirubin (0.2-1.3) mg/dL AST (17-59) U/L ALT (21-72) U/L Alkaline Phosphatase (38-126) U/L Total Protein (6.3-8.2) g/dL Albumin (3.5-5.0) g/dL Amylase (30-110) U/L Lipase (23-300) U/L Acetone, Qual (Negative) 08/05/16 Range/Units 20:12 WBC (3.8-10.6) k/uL RBC (4.30-5.90) m/uL Hgb (13.0-17.5) gm/dL Hct (39.0-53.0) % MCV (80.0-100.0) fL MCH (25.0-35.0) pg MCHC (31.0-37.0) g/dL RDW (11.5-15.5) % Plt Count (150-450) k/uL Neutrophils % % Lymphocytes % % Monocytes % % Eosinophils % % Basophils % % Neutrophils # (1.3-7.7) k/uL Lymphocytes # (1.0-4.8) k/uL Monocytes # (0-1.0) k/uL Eosinophils # (0-0.7) k/uL Basophils # (0-0.2) k/uL Hypochromasia Macrocytosis VBG pH 7.17 L* (7.31-7.41) VBG pCO2 23 L (37-51) mmHg VBG HCO3 8 L* (24-28) mmol/L Sodium (137-145) mmol/L Potassium (3.5-5.1) mmol/L Chloride (98-107) mmol/L Carbon Dioxide (22-30) mmol/L Anion Gap mmol/L BUN (9-20) mg/dL Creatinine (0.66-1.25) mg/dL Est GFR (MDRD) Af Amer (>60 ml/min/1.73 sqM) Est GFR (MDRD) Non-Af (>60 ml/min/1.73 sqM) Glucose (74-99) mg/dL POC Glucose (mg/dL) (75-99) mg/dL POC Glu Wax Blender ID Plasma Lactic Acid Eliazar (0.7-2.0) mmol/L Calcium (8.4-10.2) mg/dL Phosphorus (2.5-4.5) mg/dL Magnesium (1.6-2.3) mg/dL Total Bilirubin (0.2-1.3) mg/dL AST (17-59) U/L ALT (21-72) U/L Alkaline Phosphatase (38-126) U/L Total Protein (6.3-8.2) g/dL Albumin (3.5-5.0) g/dL Amylase (30-110) U/L Lipase (23-300) U/L Acetone, Qual (Negative) - Radiology Data Radiology results: report reviewed, image reviewed Disposition Clinical Impression: DKA (diabetic ketoacidoses), Vomiting, Uncontrolled diabetes mellitus, Acute kidney injury, Nausea vomiting and diarrhea, Insulin dependent diabetes mellitus , Abdominal pain in male, Hyponatremia Disposition: ADMITTED IP TO THIS [facility] Condition: Fair Decision Date: 08/05/16 Decision Time: 20:54
[2016-08-05 18:26] LABS: Glucose,Whole Blood >600 mg/dL (75-99)
[2016-08-05 18:28] LABS: MCV 105.3 fL (80.0-100.0)
[2016-08-05] MEDS ORDERED: INSULIN REGULAR 100 UNIT/ML VIAL IV STA (18:35)
[2016-08-05] MEDS ORDERED: Potassium Replacement Protocol 1 EACH MISC MISCELLANE PRN (18:36)
[2016-08-05] MEDS ORDERED: Magnesium Replacement Protocol 1 EACH MISC MISCELLANE PRN (18:36)
[2016-08-05 18:41] LABS: ALT 31 U/L (21-72); AST 19 U/L (17-59); Alkaline Phosphatase 139 U/L (38-126); Amylase 60 U/L (30-110); Anion Gap 27 mmol/L; Blood Urea Nitrogen 27 mg/dL (9-20); Calcium 9.8 mg/dL (8.4-10.2); Chloride 91 mmol/L (98-107); Non-African American GFR(MDRD) 39 (>60 ml/min/1.73 sqM); Potassium 5.4 mmol/L (3.5-5.1); Sodium 128 mmol/L (137-145); Total Bilirubin 0.9 mg/dL (0.2-1.3); Total Protein 7.6 g/dL (6.3-8.2)
[2016-08-05] MEDS: SODIUM CHLORIDE 0.9% 1,000 ML IV SCH ×3 (18:48→23:14)
[2016-08-05] MEDS: INSULIN REGULAR 100 UNIT in SODIUM CHLORIDE 0.9% 100 ML IV SCH (18:53)
[2016-08-05 19:02] LABS: Carbon Dioxide 10 mmol/L (22-30); Glucose 703 mg/dL (74-99)
[2016-08-05 19:09] LABS: Phosphorous 4.7 mg/dL (2.5-4.5)
[2016-08-05] MEDS ORDERED: POLYETHYLENE GLYCOL 3350 17 GM POWD.PACK PO PRN (19:24)
--- NOTE | 2016-08-05 19:41 | XR ---
EXAMINATION TYPE: XR abdomen 2V DATE OF EXAM: 08/05/2016 7:35 PM COMPARISON: 03/26/2016 HISTORY: Hyperglycemia. Nausea and vomiting. TECHNIQUE: 3 views FINDINGS: There is no sign of intestinal obstruction or pneumoperitoneum. Fecal pattern is normal. Th ere is no sign of a mass. There are no pathologic calcifications over the kidneys. Bony structures ar e intact. IMPRESSION: Nonacute abdomen. No adverse change compared to old exam.
[2016-08-05 20:12] LABS: Glucose,Whole Blood 517 mg/dL (75-99)
[2016-08-05 20:31] LABS: VBG PH 7.17 (7.31-7.41)
[2016-08-05 21:07] LABS: Glucose,Whole Blood 466 mg/dL (75-99)
[2016-08-05 21:21] LABS: Potassium 5.3 mmol/L (3.5-5.1)
[2016-08-05 21:33] LABS: Glucose,Whole Blood 449 mg/dL (75-99)
[2016-08-05 22:02] LABS: Glucose,Whole Blood 445 mg/dL (75-99)
[2016-08-05 23:11] LABS: Glucose,Whole Blood 232 mg/dL (75-99)
[2016-08-05] MEDS ORDERED: HYDROmorphone 1 MG/ML 1 ML SYRINGE IVP PRN (23:15)
[2016-08-05] MEDS: IBUPROFEN 800 MG TAB PO PRN (23:31)
[2016-08-05] MEDS: FAMOTIDINE 20 MG TAB PO SCH (23:32)
[2016-08-05] MEDS: traZODone HCL 100 MG TAB PO SCH (23:32)
[2016-08-05] MEDS: GABAPENTIN 300 MG CAP PO SCH (23:33)
[2016-08-05] MEDS: METOCLOPRAMIDE 10 MG TAB PO SCH (23:33)
[2016-08-05] MEDS: METOPROLOL TARTRATE 25 MG TAB PO SCH (23:33)
[2016-08-05] MEDS: LORazepam 1 MG TAB PO PRN (23:35)
[2016-08-05] MEDS: MAG HYDROX/AL HYDROX/SIMETH 30 ML CUP PO SCH (23:44)
[2016-08-05] MEDS: D5-0.45% NACL WITH KCL 20MEQ/L 1,000 ML IV SCH (23:56)
[2016-08-06 00:08] LABS: Glucose,Whole Blood 180 mg/dL (75-99)
[2016-08-06] MEDS: SODIUM CHLORIDE 0.9% 1,000 ML IV SCH ×5 (00:48→21:02)
[2016-08-06 01:03] LABS: Glucose,Whole Blood 147 mg/dL (75-99)
[2016-08-06 01:17] LABS: Anion Gap 11 mmol/L; Carbon Dioxide 16 mmol/L (22-30); Chloride 106 mmol/L (98-107); Non-African American GFR(MDRD) 57 (>60 ml/min/1.73 sqM); Sodium 133 mmol/L (137-145)
[2016-08-06 01:26] LABS: Blood Urea Nitrogen 24 mg/dL (9-20); Potassium 4.6 mmol/L (3.5-5.1)
[2016-08-06 02:25] LABS: Glucose,Whole Blood 114 mg/dL (75-99)
[2016-08-06 03:31] LABS: Glucose,Whole Blood 82 mg/dL (75-99)
[2016-08-06 04:06] LABS: Glucose,Whole Blood 76 mg/dL (75-99)
[2016-08-06 04:42] LABS: Glucose,Whole Blood 75 mg/dL (75-99)
[2016-08-06 04:50] LABS: Appearance,Urine Clear (Clear); Bilirubin,Urine Negative (Negative); Glucose,Urine (UA) 3+ (Negative); Ketones,Urine 1+ (Negative); Leukocyte Esterase,Urine Negative (Negative); Nitrite,Urine Negative (Negative); Protein,Urine Negative (Negative); Specific Gravity,Urine 1.001 (1.001-1.035); UA Billing (MACRO vs. MICRO) CHEM; Urobilinogen,Urine <2.0 mg/dL (<2.0)
[2016-08-06] MEDS: INSULIN REGULAR 100 UNIT in SODIUM CHLORIDE 0.9% 100 ML IV SCH (05:06)
[2016-08-06 05:07] LABS: CH 32.1; HCT 38.2 % (39.0-53.0); HGB 12.9 gm/dL (13.0-17.5); MCH 32.1 pg (25.0-35.0); MCHC 33.8 g/dL (31.0-37.0); Mean Platelet Volume 9.7; RBC 4.03 m/uL (4.30-5.90); RDW 13.7 % (11.5-15.5); WBC (Perox) 5.71
[2016-08-06 05:10] LABS: Glucose,Whole Blood 96 mg/dL (75-99)
[2016-08-06 05:14] LABS: MCV 94.9 fL (80.0-100.0)
[2016-08-06 05:20] LABS: Add Differential Manual Differential
[2016-08-06 05:22] LABS: Anion Gap 7 mmol/L; Calcium 9.1 mg/dL (8.4-10.2); Carbon Dioxide 18 mmol/L (22-30); Chloride 112 mmol/L (98-107); Glucose 79 mg/dL (74-99); Non-African American GFR(MDRD) >60 (>60 ml/min/1.73 sqM); Sodium 137 mmol/L (137-145)
[2016-08-06 05:23] LABS: Nucleated Red Blood Cells 0 /100 WBC (0-0); Total Cells Counted 100
[2016-08-06 05:24] LABS: Manual Review Performed
[2016-08-06 05:43] LABS: Blood Urea Nitrogen 23 mg/dL (9-20); Potassium 5.6 mmol/L (3.5-5.1)
[2016-08-06 06:16] LABS: Glucose,Whole Blood 86 mg/dL (75-99)
[2016-08-06] MEDS: D5-0.45% NACL WITH KCL 20MEQ/L 1,000 ML IV SCH (07:02)
[2016-08-06 07:09] LABS: Glucose,Whole Blood 128 mg/dL (75-99)
[2016-08-06 07:48] LABS: Glucose,Whole Blood 219 mg/dL (75-99)
[2016-08-06] MEDS: PANTOPRAZOLE 40 MG TABLET PO SCH (08:07)
[2016-08-06] MEDS: METOCLOPRAMIDE 10 MG TAB PO SCH ×4 (08:07→21:04)
[2016-08-06] MEDS: HEPARIN SODIUM,PORCINE 5,000 UNIT/ML 1 ML VIAL SQ SCH ×2 (08:07→21:04)
[2016-08-06] MEDS: GABAPENTIN 300 MG CAP PO SCH ×3 (08:07→21:04)
[2016-08-06] MEDS: THIAMINE 100 MG TAB PO SCH (08:08)
[2016-08-06] MEDS: LISINOPRIL 10 MG TAB PO SCH (08:08)
[2016-08-06] MEDS: LORazepam 1 MG TAB PO PRN (08:09)
[2016-08-06] MEDS: MAG HYDROX/AL HYDROX/SIMETH 30 ML CUP PO SCH ×3 (08:13→21:12)
[2016-08-06 08:23] LABS: Hemoglobin A1C 10.3 % (4.2-6.1)
[2016-08-06 08:57] LABS: Glucose,Whole Blood 187 mg/dL (75-99)
[2016-08-06] MEDS ORDERED: INSULIN NPH 300 UNIT/3 ML VIAL SQ ONE (09:17)
[2016-08-06] MEDS: METOPROLOL TARTRATE 25 MG TAB PO SCH ×2 (09:49→21:04)
[2016-08-06 10:24] VITALS: BMI 24.2
[2016-08-06] MEDS: SODIUM PHOSPHATE 10 MMOL in SODIUM CHLORIDE 0.9% 250 ML IVPB SCH ×2 (11:10→13:22)
--- NOTE | 2016-08-06 11:44 | P.CNPUL ---
History of Present Illness Consult date: 08/06/16 Requesting physician: Verónica Rg Chief complaint: Nausea and vomiting History of present illness: This is a 56-year-old -[place] male with history of type 1 diabetes, supposedly compliant with his insulin which she takes on a regular basis, however he presented to the ER with 2 days history of nausea vomiting and vague abdominal discomfort. Upon evaluation in the ER, patient was noted to have diabetic ketoacidosis, hence he was admitted to the ICU, and I was asked to see him on consultation. Patient denies any fever no chills, no shortness of breath , no cough, no wheezing, no diarrhea, no melena, no hematemesis, no dysuria frequency or urgency. Patient was placed on the DKA protocol overnight, and his sugar was well-controlled very well overnight, his anion gap corrected very nicely by this morning. Hence I plan to move the patient out of the ICU to a regular medical floor today. Review of Systems 14 point review of systems were obtained, please refer to pertinent positives and negatives in HPI. Past Medical History Past Medical History: Heart Failure, Diabetes Mellitus, Hypertension, Pneumonia , Renal Disease, Rheumatoid Arthritis (RA), Skin Disorder Additional Past Medical History / Comment(s): Pt recently admitted to [facility] on with acute DKA, metabolic encephalopathy, hyperkalemia and hyponatremia. Other HX: IDDM type I poorly controlled, DKAs, diabetic gastroparesis, bilateral feet/hands peripheral neuropathy, blood behind both eyes, peptic ulcer disease/duodenal ulcer/gastritis with erosions, previous hospitalization for pulmonary edema and bilateral pleural effusion and subsequent evaluation showed a preserved LV function with an ejection fraction of around 50%, CKD stage III, normocytic chronic anemia, rheumatoid arthritis, DJD, chronic back pain, osteoarthritis-generalized, eczema, psoriasis, ear infections, hx of narcotic abuse, cocaine abuse and alcohol abuse. History of Any Multi-Drug Resistant Organisms: MRSA Date of last positivie culture/infection: 02/25/08 MDRO Source:: Neck Past Surgical History: Adenoidectomy, Tonsillectomy Additional Past Surgical History / Comment(s): colonoscopy 2008, EGD, lt great toe amp, and part of 2nd toe. Past Anesthesia/Blood Transfusion Reactions: No Reported Reaction Past Psychological History: No Psychological Hx Reported Additional Psychological History / Comment(s): Pt staying with friends in an apartment. Smoking Status: Never smoker Past Alcohol Use History: None Reported Additional Past Alcohol Use History / Comment(s): PT has STATED in PMH that he DRINKS OCC BUT LESS THAN 14 PER WEEK Past Drug Use History: None Reported Additional Drug Use History / Comment(s): PT PMH stated pt DENIES ANY DRUG USE IN AT LEAST 7-8 YEARS. 06/18/16 toxicology + for cocaine. 06/29/16 toxicology + or cocaine. 07/06/16 toxicology + for cocaine. - Past Family History Father Family Medical History: Diabetes Mellitus, Hypertension Additional Family Medical History / Comment(s): father Mother Additional Family Medical History / Comment(s): pyschiatric issues. Medications and Allergies Home Medications Medication Instructions Recorded Confirmed Type Insulin Glargine [Lantus] 25 unit SQ W/BRKFST 07/08/16 08/05/16 History Famotidine [Pepcid] 40 mg PO HS 07/24/16 08/05/16 History Metoclopramide [Reglan] 10 mg PO ACHS 07/24/16 08/05/16 History Gabapentin 600 mg PO TID 08/05/16 08/05/16 History Ibuprofen [Motrin] 800 mg PO Q8H PRN 08/05/16 08/05/16 History Insulin Aspart [NovoLOG] See Protocol SQ AC-TID 08/05/16 08/05/16 History Metoprolol Tartrate [Lopressor] 25 mg PO BID 08/05/16 08/05/16 History traZODone HCL [Desyrel] 200 mg PO HS 08/05/16 08/05/16 History Allergies Allergy/AdvReac Type Severity Reaction Status Date / Time No Known Allergies Allergy Verified 08/05/16 18:02 Physical Exam Vitals: Vital Signs Temp Pulse Resp BP Pulse Ox 08/06/16 11:00 64 10 L 107/61 99 08/06/16 10:00 63 10 L 121/75 100 08/06/16 09:00 63 11 L 119/75 98 08/06/16 08:00 97.1 F L 59 L 10 L 119/75 100 08/06/16 07:00 58 L 11 L 106/61 100 08/06/16 06:30 56 L 21 106/61 100 08/06/16 06:00 61 14 106/61 99 08/06/16 05:30 55 L 10 L 101/54 98 08/06/16 05:00 56 L 10 L 101/54 98 08/06/16 04:30 57 L 9 L 118/67 100 08/06/16 04:00 97.5 F L 57 L 10 L 118/67 98 08/06/16 03:30 59 L 11 L 100/53 98 08/06/16 03:00 59 L 10 L 100/53 95 08/06/16 02:30 62 20 119/58 97 08/06/16 02:00 61 11 L 119/58 98 08/06/16 01:30 65 14 92/44 98 08/06/16 01:00 62 12 92/44 96 08/06/16 00:50 61 12 92/44 95 08/06/16 00:40 62 12 139/67 97 08/06/16 00:30 60 11 L 139/67 96 08/06/16 00:20 65 11 L 139/67 92 L 08/06/16 00:10 68 8 L 139/67 96 08/06/16 00:02 71 25 H 139/67 97 08/06/16 00:00 98.6 F 69 12 139/67 98 08/05/16 23:50 72 20 139/67 100 08/05/16 23:40 73 18 139/67 98 08/05/16 23:30 72 16 131/65 100 08/05/16 23:20 73 22 131/65 99 08/05/16 23:10 72 14 131/65 100 08/05/16 23:00 74 131/65 100 08/05/16 22:50 70 131/65 99 08/05/16 22:40 70 131/65 100 08/05/16 22:30 71 138/71 100 08/05/16 22:20 70 16 138/71 100 08/05/16 22:10 69 138/71 100 08/05/16 22:00 74 13 138/71 100 08/05/16 21:50 75 138/71 100 08/05/16 21:40 85 138/71 100 08/05/16 21:34 75 Intake and Output 08/05/16 08/06/16 08/06/16 22:59 06:59 14:59 Intake Total 670.495 6952.908 1286.025 Output Total 1375 Balance 231.333 -31.092 1286.025 Intake: IV 200 1300 450 D5-0.45% NaCl with KCl 900 450 20Meq/l 1,000 ml @ 150 mls/hr IV .Q6H40M JURGEN Rx# :[id number] Sodium Chloride 0.9% 1, 200 400 000 ml @ 200 mls/hr IV . Q5H JURGEN Rx#:[id number] Intake, IV Titration 31.333 43.908 356.025 Amount Insulin Regular 100 unit 31.333 43.908 6.025 In Sodium Chloride 0.9% 100 ml @ 0.1 UNITS/KG/HR 10.07 mls/hr IV .Q10H2M JURGEN Rx#:[id number] Sodium Chloride 0.9% 1, 100 000 ml @ 100 mls/hr IV . Q10H JURGEN Rx#:[id number] Sodium Phosphate 10 mmol 250 In Sodium Chloride 0.9% 250 ml @ 125 mls/hr IVPB Q2H JURGEN Rx#:[id number] Oral 480 Output: Urine 1375 Other: Voiding Method Urinal Urinal Weight 74.5 kg 74.5 kg Patient Weight 08/07/16 06:59 Weight 74.5 kg Physical Exam: Revealed a [id number] in no distress HEENT:[Neck is supple.] [No neck masses.] [No thyromegaly.] [No JVD.] Chest: [Clear throughout, no crackles, no rhonchi, no wheezes.] Cardiac Exam: [Normal S1 and S2, no S3 gallop, no murmur.] Abdomen: [Soft, nontender, no megaly, no rebound, no guarding, normal bowel sounds.] Extremities: [No clubbing, no edema, no cyanosis.] Neurological Exam: [No focal neurologic deficit.] Results - Laboratory Findings CBC and BMP: 08/06/16 04:25 08/06/16 04:25 Abnormal lab findings: Abnormal Labs 08/05/16 08/05/16 08/05/16 21:06 21:30 22:00 RBC Hgb Hct Sodium Potassium Chloride Carbon Dioxide BUN Creatinine POC Glucose (mg/dL) 466 H 449 H 445 H Phosphorus Urine Glucose (UA) Urine Ketones 0308/06/16 08/06/16 23:09 00:07 00:19 RBC Hgb Hct Sodium 133 L Potassium Chloride Carbon Dioxide 16 L BUN 24 H Creatinine 1.30 H POC Glucose (mg/dL) 232 H 180 H Phosphorus 2.0 L Urine Glucose (UA) Urine Ketones 08/06/16 08/06/16 08/06/16 01:02 02:23 04:11 RBC Hgb Hct Sodium Potassium Chloride Carbon Dioxide BUN Creatinine POC Glucose (mg/dL) 147 H 114 H Phosphorus Urine Glucose (UA) 3+ H Urine Ketones 1+ H 08/06/16 08/06/16 08/06/16 04:25 04:25 07:07 RBC 4.03 L Hgb 12.9 L Hct 38.2 L Sodium Potassium 5.6 H Chloride 112 H Carbon Dioxide 18 L BUN 23 H Creatinine POC Glucose (mg/dL) 128 H Phosphorus Urine Glucose (UA) Urine Ketones 08/06/16 08/06/16 07:47 08:56 RBC Hgb Hct Sodium Potassium Chloride Carbon Dioxide BUN Creatinine POC Glucose (mg/dL) 219 H 187 H Phosphorus Urine Glucose (UA) Urine Ketones - Diagnostic Findings Additional studies: X-ray of abdomen showed a nonacute abdomen Assessment and Plan Plan: Impression: 1 acute diabetic ketoacidosis most likely secondary to noncompliance. 2 chronic pain syndrome, patient takes Percocet on a regular basis, and I will leave it up to the admitting physician to decide on the Percocet dosing. 3 multiple comorbidities including type 1 diabetes, hypertension, rheumatoid arthritis, diabetic gastroparesis, diabetic neuropathy, history of peptic ulcer disease, remote history of congestive heart failure and history of chronic kidney disease stage III. And history of narcotic abuse. Recommendation: The insulin drip will be discontinued today, patient will be placed on a sliding scale as per protocol, IV fluid will be changed to 0.9 normal saline, transfer patient to a regular medical floor and possible discharge planning in the next 24 hours. Time with Patient: Greater than 30
[2016-08-06 12:08] LABS: Glucose,Whole Blood 316 mg/dL (75-99)
[2016-08-06] MEDS: INSULIN LISPRO (humaLOG) 300 UNIT/3 ML VIAL SQ SCH ×5 (13:23→22:02)
[2016-08-06] MEDS: FOLIC ACID 1 MG TAB PO SCH (13:23)
[2016-08-06] MEDS: MULTIVITAMINS, THERA 1 EACH TAB PO SCH (13:23)
[2016-08-06] MEDS: oxyCODONE-APAP 10-325MG 1 EACH TAB PO PRN ×2 (13:53→18:24)
--- NOTE | 2016-08-06 14:24 | HP ---
DATE OF ADMISSION: 08/05/2016 CHIEF COMPLAINT: Hyperglycemia. Nausea and vomiting and diarrhea. HISTORY OF PRESENT ILLNESS: This 56-year-old gentleman with a past medical history of diabetes mellitus, history of CHF, history of hypertension, pneumonia, history of rheumatoid arthritis, noncompliance, multiple admissions to hospital with chronic kidney disease and with diabetic ketoacidosis, is being followed by no primary care physician in the outpatient setting, was also having high blood pressure. The patient also has history of noncompliance also. The patient is extremely feeling weak apparently and the patient came to [facility] emergency room and blood sugar was found to be more than 700. Ketoacidosis present. pH was 7.17. CO2 was around 8 and the patient came to [facility] for further evaluation and treatment. DKA protocol has been initiated. There is no history of fever, rigors or chills. No history of headache, loss of consciousness, seizures. Patient is slightly drowsy and unable to give coherent history. Most of the history was taken from my discussion with staff and discussion with the ER physician as well as review of the chart. PAST MEDICAL HISTORY: History of CHF, history of diabetes, hypertension, history of rheumatoid arthritis, history of tonsillectomy and adenoidectomy, history of MRSA. Medications prior to admission include: 1. Trazodone 200 mg p.o. q.h.s. 2. Vitamin daily. 4. Polyethylene glycol 350 17 gm daily. 5. Prilosec 40 mg a.c. breakfast. 6. Multivitamins one p.o. daily. 7. Lopressor 25 mg p.o. b.i.d. 8. Reglan 10 mg p.o. a.c. and at bedtime. 9. Maalox 5 mL p.o. t.i.d. 10. Zestril 10 mg p.o. daily. 11. Lantus 25 . 12. Novolog to scale. 13. Motrin 800 mg q.8 p.r.n. 14. Gabapentin 600 mg p.o. t.i.d. 15. Folic acid 1 mg daily. 16. Pepcid 40 mg at bedtime. ALLERGIES: None. FAMILY HISTORY: No history of diabetes and hypertension in the family. SOCIAL HISTORY: No history of smoking, occasional alcohol intake. REVIEW OF SYSTEMS: ENT: No diminished vision. No diminished hearing. CARDIOVASCULAR: No angina or palpitations. RESPIRATORY: As mentioned earlier. GI: No nausea. : No dysuria. Nervous system: No numbness, weakness. Allergy/immunology: No asthma or hayfever. MUSCULOSKELETAL: As mentioned earlier. HEMATOLOGY/ONCOLOGY: No history of anemia. ENDOCRINE: As mentioned earlier. CONSTITUTIONAL: As mentioned earlier. DERMATOLOGY: Negative. RHEUMATOLOGY: Negative. PSYCHIATRY: As mentioned earlier. PHYSICAL EXAMINATION: The patient is alert, oriented x2. Pulse 76, blood pressure 127/64, respirations 18, temperature 98.4. Pulse ox 100% on room air. HEENT: Conjunctivae normal. NECK: No jugular venous distention. CARDIOVASCULAR: S1, S2 muffled. RESPIRATORY: Breath sounds diminished at the bases. A few scattered rhonchi, no crackles. ABDOMEN: Soft, nontender. No mass palpable. ' LEGS: No edema. No swelling. Nervous system: Higher function as mentioned earlier. Moves all 4 limbs. No focal motor or sensory deficits. LYMPHATICS: No lymph nodes palpable in the neck, axillae or groin. SKIN: No ulcer, rash or bleeding. LABS: MCV 105, pH otherwise as mentioned earlier. Sodium 130, potassium 5.3 and glucose ketones are positive. ASSESSMENT: 1. Acute diabetic ketoacidosis. 2. Change in the mental status, metabolic encephalopathy secondary to diabetic ketoacidosis. 3. Hyponatremia. 4. Hyperkalemia. 5. Severe acidosis. 6. Renal failure, chronic kidney disease, stage III. 7. Increased MCV. 8. History of congestive heart failure, hypertension. 9. History of rheumatoid arthritis. 10. History of hyperkalemia. 11. History of noncompliance. 12. History of polysubstance abuse, including cocaine previously. 13. History of degenerative joint disease. 14. History of ETOH abuse. 15. History of chronic pain syndrome. 16. History of recurrent diabetic ketoacidosis. 17. History of peptic ulcer disease. 18. History of congestive heart failure with chronic systolic dysfunction, ejection fraction 50%. 19. History of degenerative joint disease. 20. History of Methicillin-resistant Staph aureus. 21. Tonsillectomy and adenoidectomy. 22. PREVIOUSLY NO CODE, NO CPR, NO VENT. RECOMMENDATIONS AND DISCUSSION: Continue the current medications, continue with monitoring, symptomatic treatment. Otherwise, at this time, I recommend diabetic ketoacidosis protocol. Monitor blood sugars closely. Continue to monitor electrolytes and fluid balance. Dr. Krueger will be consulted for the ICU management. Otherwise, home medications will be continued. The importance of compliance was stressed to the patient also. The prognosis is guarded because of multiple complex medical issues. Further recommendations to follow. Also recommend the patient to follow up with the primary physician also. Further recommendations to follow. family services worker and case management team also to work with the problem with readmission as well. Further recommendations to follow. See orders for further details. DVT prophylaxis, incentive spirometry. MTDD
[2016-08-06] MEDS ORDERED: INSULIN GLARGINE 100 UNIT/ML 10 ML VIAL SQ STA (16:53)
[2016-08-06 17:03] LABS: Glucose,Whole Blood 270 mg/dL (75-99)
[2016-08-06] MEDS: IBUPROFEN 800 MG TAB PO PRN (18:23)
[2016-08-06] MEDS: traZODone HCL 100 MG TAB PO SCH (21:04)
[2016-08-06] MEDS: FAMOTIDINE 20 MG TAB PO SCH (21:04)
[2016-08-06 21:31] LABS: Glucose,Whole Blood 203 mg/dL (75-99)
--- NOTE | 2016-08-06 22:00 | PN ---
DATE OF SERVICE: 08/06/2016 This 56-year-old gentleman who was admitted with acute diabetic ketoacidosis. He had significant history of noncompliance. Currently according to the patient, the patient is taking on a regular basis. The patient also had about one and one half which is about month worth's according to him but the patient apparently with friends but patient is symptomatic with vomiting and diarrhea, and patient ended up in the hospital with acute diabetic ketoacidosis. Sensorium is definitely improved. The patient complaining of significant pain issues and patient also had as well. Past medical history reviewed. REVIEW OF SYSTEMS: CARDIOVASCULAR: No angina or palpitations. RESPIRATORY: As mentioned earlier. GASTROINTESTINAL: No nausea or vomiting. : No dysuria. Nervous system: No numbness or weakness. Current medications are reviewed and include: 1. Maalox 5 mL p.o. t.i.d. 2. Pepcid 40 mg. 3. Folic acid 1 mg. 4. Neurontin 600 mg t.i.d. 5. Heparin 5000 subcu b.i.d. 6. Motrin 800 mg daily. 7. Lantus subcu. 9. Zestril 10 mg daily. 10. Ativan 0.5 mg daily. 11. Reglan 10 mg a.c. q.h.s. 12. Lopressor 25 mg b.i.d. 13. Multivitamins one p.o. daily. 14. Percocet 10 mg q.4 p.r.n. 15. Protonix 40 mg daily. 16. Miralax. 17. Vitamin B 100 mg daily. 18. Desyrel 200 mg p.o. q.h.s. PHYSICAL EXAMINATION: The patient is alert and oriented x2. Pulse 59, blood pressure 103/56, respirations 14, temperature 97.1, pulse ox 94% on room air. HEENT: Conjunctivae normal. Oral mucosa moist. NECK: No jugular venous distention. No carotid bruit. No lymph node enlargement. CARDIOVASCULAR: S1, S2 muffled. No S3, no S4. RESPIRATORY: Breath sounds diminished at the bases. A few scattered rhonchi and crackles. ABDOMEN: Soft, nontender. No mass palpable. No hepatosplenomegaly. LEGS: No edema. No swelling. Nervous system: Higher functions as mentioned earlier. Moves all four limbs. No focal deficits. LYMPHATICS: No lymph nodes palpable in the neck, axillae or groin. SKIN: No ulcer, rash or bleeding. LABS: Accu-Cheks 219, 287, 168, hemoglobin is 12.9. Otherwise, potassium 5.6. ASSESSMENT: 1. Acute diabetic ketoacidosis uncontrolled diabetes mellitus type 2. 2. Change in mental status, metabolic encephalopathy secondary to acute diabetic ketoacidosis. 3. Hyponatremia. 4. Hyperkalemia. 5. Nausea, vomiting, diarrhea, possible acute gastroenteritis. 6. Severe acidosis metabolic encephalopathy present on admission secondary to diabetic ketoacidosis. 7. Renal failure, chronic kidney disease Stage III. 8. Increased MCV. 9. Congestive heart failure, history of congestive heart failure. 10. Hypertension essential. 11. History of rheumatoid arthritis. 12. History of hyperkalemia. 13. History of noncompliance. 14. History of polysubstance abuse, including cocaine previously. 15. History of degenerative joint disease. 16. History of ETOH abuse. 17. History of chronic pain syndrome. 18. History of recurrent diabetic ketoacidosis. 19. History of peptic ulcer disease. 20. History of congestive heart failure with chronic systolic dysfunction, ejection fraction 50%. 21. History of degenerative joint disease. 22. History of methicillin-resistant Staphylococcus aureus. 23. Tonsillectomy and adenoidectomy. 24. PREVIOUSLY NO CODE, NO CPR, NO VENTILATOR. RECOMMENDATIONS AND DISCUSSION: Recommend to continue the current medications, continue with monitoring, symptomatic treatment. The patient has significant ketoacidosis and acidosis present on admission. Gap is closed at this time at 7 and the patient, the acidosis improved with CO2 of 18. I would recommend transition the patient to transition the patient does have transition scale, I would recommend further transitional home dose of insulin. The insulin dose will be calculated and orders will be given to the of staff and please refer to the chart for further details. Once again, the prognosis is guarded. Further recommendations to follow. Importance of compliance also stressed to the patient. The patient understands and agrees. MTDD
[2016-08-07] MEDS: SODIUM CHLORIDE 0.9% 1,000 ML IV SCH ×2 (01:12→14:56)
[2016-08-07 03:12] LABS: Glucose,Whole Blood 120 mg/dL (75-99)
[2016-08-07 06:58] LABS: Glucose,Whole Blood 91 mg/dL (75-99)
[2016-08-07] MEDS: INSULIN LISPRO (humaLOG) 300 UNIT/3 ML VIAL SQ SCH ×7 (07:35→20:56)
[2016-08-07] MEDS: INSULIN GLARGINE 100 UNIT/ML 10 ML VIAL SQ SCH (07:50)
[2016-08-07] MEDS: PANTOPRAZOLE 40 MG TABLET PO SCH (07:52)
[2016-08-07 07:53] LABS: Basophils % (A) 1 %; CH 31.5; Eosinophils # (A) 0.5 k/uL (0-0.7); Eosinophils % (A) 13 %; HCT 40.7 % (39.0-53.0); HDW 2.57; HGB 13.2 gm/dL (13.0-17.5); Luc # (Auto) 0.15; Luc % (Auto) 4; Lymphocytes % (A) 47 %; MCHC 32.3 g/dL (31.0-37.0); Mean Platelet Volume 8.3; Monocytes # (A) 0.2 k/uL (0-1.0); Monocytes % (A) 4 %; Neutrophils # (A) 1.3 k/uL (1.3-7.7); Neutrophils % (A) 32 %; RBC 4.11 m/uL (4.30-5.90); RDW 14.2 % (11.5-15.5); WBC 4.1 k/uL (3.8-10.6); WBC (Perox) 3.83
[2016-08-07] MEDS: METOPROLOL TARTRATE 25 MG TAB PO SCH ×2 (07:53→20:50)
[2016-08-07] MEDS: GABAPENTIN 300 MG CAP PO SCH ×3 (07:53→20:50)
[2016-08-07] MEDS: LISINOPRIL 10 MG TAB PO SCH (07:53)
[2016-08-07] MEDS: METOCLOPRAMIDE 10 MG TAB PO SCH ×4 (07:53→20:50)
[2016-08-07] MEDS: THIAMINE 100 MG TAB PO SCH (07:53)
[2016-08-07] MEDS: HEPARIN SODIUM,PORCINE 5,000 UNIT/ML 1 ML VIAL SQ SCH ×2 (07:53→20:54)
[2016-08-07] MEDS: MAG HYDROX/AL HYDROX/SIMETH 30 ML CUP PO SCH ×4 (07:55→23:34)
[2016-08-07 07:59] LABS: Anion Gap 9 mmol/L; Blood Urea Nitrogen 20 mg/dL (9-20); Calcium 8.9 mg/dL (8.4-10.2); Carbon Dioxide 20 mmol/L (22-30); Chloride 111 mmol/L (98-107); Glucose 99 mg/dL (74-99); Non-African American GFR(MDRD) 56 (>60 ml/min/1.73 sqM); Potassium 4.3 mmol/L (3.5-5.1); Sodium 140 mmol/L (137-145)
[2016-08-07] MEDS: oxyCODONE-APAP 10-325MG 1 EACH TAB PO PRN ×3 (10:50→23:27)
[2016-08-07 12:17] LABS: Glucose,Whole Blood 107 mg/dL (75-99)
[2016-08-07] MEDS: MULTIVITAMINS, THERA 1 EACH TAB PO SCH (12:20)
[2016-08-07] MEDS: FOLIC ACID 1 MG TAB PO SCH (12:20)
[2016-08-07 17:16] LABS: Glucose,Whole Blood 36 mg/dL (75-99)
[2016-08-07 17:16] LABS: Glucose,Whole Blood 41 mg/dL (75-99)
[2016-08-07 17:36] LABS: Glucose,Whole Blood 59 mg/dL (75-99)
[2016-08-07 17:56] LABS: Glucose,Whole Blood 77 mg/dL (75-99)
[2016-08-07 18:40] LABS: Glucose,Whole Blood 120 mg/dL (75-99)
[2016-08-07 20:49] LABS: Glucose,Whole Blood 189 mg/dL (75-99)
[2016-08-07] MEDS: traZODone HCL 100 MG TAB PO SCH (20:49)
[2016-08-07] MEDS: FAMOTIDINE 20 MG TAB PO SCH (20:49)
[2016-08-07] MEDS: LORazepam 1 MG TAB PO PRN (23:37)
[2016-08-08 02:37] LABS: Glucose,Whole Blood 108 mg/dL (75-99)
[2016-08-08] MEDS: SODIUM CHLORIDE 0.9% 1,000 ML IV SCH (06:17)
[2016-08-08] MEDS: oxyCODONE-APAP 10-325MG 1 EACH TAB PO PRN ×2 (06:20→11:42)
[2016-08-08 07:27] LABS: Glucose,Whole Blood 66 mg/dL (75-99)
[2016-08-08] MEDS: INSULIN LISPRO (humaLOG) 300 UNIT/3 ML VIAL SQ SCH ×4 (07:30→12:43)
[2016-08-08] MEDS: METOCLOPRAMIDE 10 MG TAB PO SCH ×2 (07:45→12:47)
[2016-08-08] MEDS: PANTOPRAZOLE 40 MG TABLET PO SCH (07:45)
[2016-08-08 07:59] VITALS: BP 152/76; PULSE 67; RESP 20; TEMP 97.1
[2016-08-08 08:05] LABS: Glucose,Whole Blood 71 mg/dL (75-99)
--- NOTE | 2016-08-08 09:00 | PN ---
DATE OF SERVICE: 08/07/2016 This 56-year-old gentleman admitted with diabetic ketoacidosis, past history of multiple, prolonged extensive history of noncompliance also. The patient complained of abdominal discomfort. The patient complained of abdominal discomfort. The patient also had gastroparesis. No fever. No cough. On exam, alert and oriented x3. Pulse is 68, blood pressure 130/60, respirations 22, temperature 96.2, pulse ox 96% on room air. HEENT: Conjunctivae normal. NECK: No jugular venous distention. CARDIOVASCULAR: S1, S2 muffled. RESPIRATORY: Breath sounds diminished in the bases. no rhonchi, no crackles. ABDOMEN: Soft. Mild diffuse tenderness. LEGS: No edema, no swelling. NERVOUS SYSTEM: No focal deficits. LABS: WBC 4.1, hemoglobin is 13.2, sodium 140, potassium 4.3, CO2 is 20, glucose 189. positive. ASSESSMENT: 1. Acute diabetic ketoacidosis with uncontrolled diabetes type 2. 2. Change in mental status, metabolic encephalopathy secondary to acute diabetic ketoacidosis. 3. Hyponatremia. 4. Hyperkalemia. 5. Nausea, vomiting, diarrhea, possibly acute gastroenteritis. 6. Severe metabolic encephalopathy present on admission, secondary to diabetic ketoacidosis. Renal failure, chronic kidney disease stage III. 7. Increased MCV. 8. Congestive heart failure with a history of congestive heart failure. 9. Hypertension essential. 10. History of rheumatoid arthritis. 11. History of hyperkalemia. 12. History of noncompliance. 13. History of polysubstance abuse including cocaine previously. 14. History of degenerative joint disease. 15. History of EtOH abuse. 16. Chronic pain syndrome. 17. History of recurrent diabetic ketoacidosis. 18. History of peptic ulcer. 19. History of congestive heart failure with chronic systolic dysfunction, ejection fraction 50%. 20. History of degenerative joint disease. 21. History of methicillin-resistant Staphylococcus aureus. 22. Tonsillectomy and adenoidectomy. 23. Previously no code, no CPR, no ventilator. RECOMMENDATIONS AND DISCUSSION: I recommend to continue the current medications, continue monitoring and symptomatic treatment. Otherwise at this time, I would recommend symptomatic treatment. The patient is on medications. Sugars are controlled. Symptomatic treatment of the abdomen will be provided. Closely monitor. Guarded prognosis. Further recommendations to follow. MTDD
[2016-08-08] MEDS: INSULIN GLARGINE 100 UNIT/ML 10 ML VIAL SQ SCH (09:14)
[2016-08-08] MEDS: IBUPROFEN 800 MG TAB PO PRN (09:15)
[2016-08-08] MEDS: GABAPENTIN 300 MG CAP PO SCH (09:16)
[2016-08-08] MEDS: HEPARIN SODIUM,PORCINE 5,000 UNIT/ML 1 ML VIAL SQ SCH (09:17)
[2016-08-08] MEDS: METOPROLOL TARTRATE 25 MG TAB PO SCH (09:17)
[2016-08-08] MEDS: LISINOPRIL 10 MG TAB PO SCH (09:17)
[2016-08-08] MEDS: MULTIVITAMINS, THERA 1 EACH TAB PO SCH (09:18)
[2016-08-08] MEDS: THIAMINE 100 MG TAB PO SCH (09:18)
[2016-08-08] MEDS: FOLIC ACID 1 MG TAB PO SCH (09:18)
[2016-08-08] MEDS: MAG HYDROX/AL HYDROX/SIMETH 30 ML CUP PO SCH (09:30)
[2016-08-08 09:56] LABS: Anion Gap 8 mmol/L; Blood Urea Nitrogen 15 mg/dL (9-20); Calcium 8.4 mg/dL (8.4-10.2); Carbon Dioxide 20 mmol/L (22-30); Chloride 113 mmol/L (98-107); Glucose 120 mg/dL (74-99); Non-African American GFR(MDRD) >60 (>60 ml/min/1.73 sqM); Phosphorous 3.2 mg/dL (2.5-4.5); Potassium 4.4 mmol/L (3.5-5.1); Sodium 141 mmol/L (137-145)
[2016-08-08 10:14] LABS: Aty Lym Flag Slight; CH 31.4; CHCM 31.5; HCT 36.8 % (39.0-53.0); HDW 2.55; HGB 11.7 gm/dL (13.0-17.5); MCH 31.8 pg (25.0-35.0); MCHC 31.7 g/dL (31.0-37.0); MCV 100.4 fL (80.0-100.0); Macrocytosis Slight; Mean Platelet Volume 7.8; RBC 3.66 m/uL (4.30-5.90); RDW 14.3 % (11.5-15.5); WBC (Perox) 3.11
[2016-08-08 10:44] LABS: Add Differential Manual Differential
[2016-08-08 10:50] LABS: Nucleated Red Blood Cells 0 /100 WBC (0-0); Total Cells Counted 100
[2016-08-08 11:54] LABS: Glucose,Whole Blood 170 mg/dL (75-99)
--- NOTE | 2016-08-09 15:39 | DS ---
DATE OF ADMISSION: 08/05/2016 DATE OF DISCHARGE: 08/08/2016 FINAL DIAGNOSIS(ES): 1. Acute diabetic ketoacidosis with uncontrolled diabetes mellitus type 2. 2. Change in mental status, metabolic encephalopathy, secondary to acute diabetic ketoacidosis. 3. Hyponatremia. 4. Hyperkalemia. 5. Nausea and vomiting, diarrhea, possible acute gastroenteritis with severe acute metabolic encephalopathy present on admission. 6. Secondary to diabetic ketoacidosis. 7. Renal failure. 8. Chronic kidney disease stage III. 9. Increased MCV. 10. History of congestive heart failure. 11. Hypertension, essential. 12. History of rheumatoid arthritis. 13. History of hyperkalemia. 14. History of noncompliance. 15. History of polysubstance abuse including cocaine, previously. 16. History of degenerative joint disease. 17. History of ETOH abuse. 18. Chronic pain syndrome. 19. History of recurrent diabetic ketoacidosis. 20. History of peptic ulcer disease. 21. History of congestive heart failure with chronic systolic dysfunction, ejection fraction 50%. 22. History of degenerative joint disease. 23. History of Methicillin-resistant Staph aureus. 24. History of tonsillectomy and adenoidectomy. 25. Previously NO CODE, NO CPR AND NO VENT. DISCHARGE DISPOSITION: The patient is being discharged in stable condition with guarded prognosis. HISTORY OF PRESENT ILLNESS: This 56 -year-old gentleman presented with multiple medical problems, at this time, the patient treated for diabetic ketoacidosis with drips and protocol. Patient improved significantly. On exam, vital signs are stable. CARDIOVASCULAR: S1, S2. Abdomen: Soft. Nervous system: No focal deficits. The importance of compliance was stressed to the patient. The patient discharge advice and medications: 1. Diet is consistent carb diet. 2. Follow up with Dr. Sofia Emanuel in 2 to 3 days. 3. CBC, BMP. 4. Medications are: Pepcid 40 mg p.o. q.h.s. 5. Folic acid 1 mg p.o. daily. 6. Gabapentin 600 mg t.i.d. 7. Motrin 800 mg q.8 p.r.n. 8. Novolog scale. 9. Lantus 20 units with breakfast. 10. Ativan 0.5 mg t.i.d. 11. Zestril 10 mg p.o. daily. 12. Magnesium hydroxide 5 mL p.o. t.i.d. 13. Reglan 10 mg p.o. a.c. and at bedtime. 14. Lopressor 25 mg p.o. b.i.d. 15. Multivitamins one p.o. daily. 16. Prilosec 40 mg daily. 17. Polyethylene glycol 3.35. 18. Miralax 17 grams daily. 19. Vitamin B1 100 mg p.o. daily. 20. Desyrel 200 mg p.o. q.h.s. Once again, the patient will be discharged in a stable condition with guarded prognosis.
== END 2016-08-08 13:36 | disposition home or self-care (01) | DRG 637 ==
LOC: EC 17:30 → 6ICU 20:54 → 4MS4W 08-06 16:06
PROVIDERS: ADMIT Hospitalist; ATTEND Hospitalist
DX: E13.10 Other specified diabetes mellitus with ketoacidosis without coma (principal); G93.41 Metabolic encephalopathy; I50.22 Chronic systolic (congestive) heart failure; I13.0 Hypertensive heart and chronic kidney disease with heart failure and stage 1 through stage 4 chronic kidney disease, or unspecified chronic kidney disease; E87.5 Hyperkalemia; K31.84 Gastroparesis; N18.3 Chronic kidney disease, stage 3 (moderate); E87.1 Hypo-osmolality and hyponatremia; K29.70 Gastritis, unspecified, without bleeding; K52.9 Noninfective gastroenteritis and colitis, unspecified; E11.43 Type 2 diabetes mellitus with diabetic autonomic (poly)neuropathy; E11.40 Type 2 diabetes mellitus with diabetic neuropathy, unspecified; M19.90 Unspecified osteoarthritis, unspecified site; M06.9 Rheumatoid arthritis, unspecified; Z16.24 Resistance to multiple antibiotics; D64.9 Anemia, unspecified; R53.1 Weakness; G89.4 Chronic pain syndrome; M54.9 Dorsalgia, unspecified; Z86.14 Personal history of Methicillin resistant Staphylococcus aureus infection; Z87.11 Personal history of peptic ulcer disease; Z79.899 Other long term (current) drug therapy; Z79.4 Long term (current) use of insulin; Z83.3 Family history of diabetes mellitus; Z82.49 Family history of ischemic heart disease and other diseases of the circulatory system; Z71.3 Dietary counseling and surveillance; Z87.2 Personal history of diseases of the skin and subcutaneous tissue; Z87.01 Personal history of pneumonia (recurrent); Z79.1 Long term (current) use of non-steroidal anti-inflammatories (NSAID); Z79.891 Long term (current) use of opiate analgesic; Z91.19 Patient's noncompliance with other medical treatment and regimen; Z81.8 Family history of other mental and behavioral disorders; Z86.19 Personal history of other infectious and parasitic diseases; Z86.69 Personal history of other diseases of the nervous system and sense organs; Z89.412 Acquired absence of left great toe; Z89.429 Acquired absence of other toe(s), unspecified side
CPT/HCPCS: 36415; 74020; 80048; 80051; 80053; 80306; 81003; 82009; 82150; 82565; 82803; 83036; 83605; 83690; 83735; 84100; 84520; 85025; 96365; 96366; 96375; 96376; 99285

== ENCOUNTER 2016-08-11 04:19 | Inpatient (IN) | payer OTHER ==
[2016-08-11] MEDS ORDERED: SODIUM CHLORIDE 0.9% 1,000 ML IV ONE (04:23)
[2016-08-11] MEDS ORDERED: INSULIN REGULAR 100 UNIT/ML VIAL IV STA (04:23)
[2016-08-11 04:34] LABS: Glucose,Whole Blood >600 mg/dL (75-99)
[2016-08-11 04:58] LABS: Calcium 8.6 mg/dL (8.4-10.2); Potassium 5.7 mmol/L (3.5-5.1)
[2016-08-11 05:32] LABS: Basophils % (A) 0 %; CH 30.4; CHCM 28.5; Eosinophils % (A) 0 %; HCT 41.1 % (39.0-53.0); HDW 2.48; HGB 12.1 gm/dL (13.0-17.5); Hypochromasia Marked; Luc # (Auto) 0.18; Luc % (Auto) 2; Lymphocytes # (A) 0.9 k/uL (1.0-4.8); Lymphocytes % (A) 12 %; MCH 31.5 pg (25.0-35.0); MCHC 29.3 g/dL (31.0-37.0); Macrocytosis Moderate; Mean Platelet Volume 8.5; Monocytes # (A) 0.6 k/uL (0-1.0); Monocytes % (A) 8 %; Neutrophils # (A) 5.9 k/uL (1.3-7.7); Neutrophils % (A) 78 %; RBC 3.84 m/uL (4.30-5.90); RDW 13.9 % (11.5-15.5); WBC 7.6 k/uL (3.8-10.6); WBC (Perox) 8.16
[2016-08-11 05:49] LABS: MCV 107.2 fL (80.0-100.0)
[2016-08-11 06:16] LABS: Glucose,Whole Blood >600 mg/dL (75-99)
--- NOTE | 2016-08-11 06:26 | ED ---
General Adult HPI - General Chief complaint: Recheck/Abnormal Lab/Rx Stated complaint: Hyperglycemia Time Seen by Provider: 08/11/16 04:22 Source: patient, EMS Mode of arrival: EMS Limitations: no limitations - History of Present Illness Initial comments: This patient 56-year-old man brought in by [facility] to be evaluated for possible DKA. The patient's had developed abdominal pain, nausea and vomiting and felt that this was similar to previous episodes of DKA. On arrival the EMS crew had checked his blood sugar and it was high. The patient is indicating generalized abdominal aching pain. He is not able to quantify the amount of vomiting. He is not aware seen any blood. Patient denies chest pain. -: hour(s) Location: abdomen Quality: aching Consistency: constant Improves with: none Worsens with: none Associated Symptoms: nausea/vomiting - Related Data Home Medications Medication Instructions Recorded Confirmed Famotidine [Pepcid] 40 mg PO HS 07/24/16 08/05/16 Metoclopramide [Reglan] 10 mg PO ACHS 07/24/16 08/05/16 Gabapentin 600 mg PO TID 08/05/16 08/05/16 Ibuprofen [Motrin] 800 mg PO Q8H PRN 08/05/16 08/05/16 Insulin Aspart [NovoLOG] See Protocol SQ AC-TID 08/05/16 08/05/16 Metoprolol Tartrate [Lopressor] 25 mg PO BID 08/05/16 08/05/16 traZODone HCL [Desyrel] 200 mg PO HS 08/05/16 08/05/16 Previous Rx's Medication Instructions Recorded Folic Acid 1 mg PO DAILY #30 tablet 07/16/16 Multivitamins, Thera [Multivitamin 1 tab PO DAILY #30 tablet 07/16/16 (formulary)] Thiamine [Vitamin B-1] 100 mg PO DAILY #30 tablet 07/16/16 Lisinopril [Zestril] 10 mg PO DAILY #30 tab 07/25/16 Mag Hydrox/Al Hydrox/Simeth 5 ml PO TID #200 ml 07/25/16 [Maalox] Omeprazole [PriLOSEC] 40 mg PO AC-ANNABEL #30 capsule. 07/25/16 Polyethylene Glycol 3350 [Miralax] 17 gm PO DAILY PRN #30 packet 07/25/16 Insulin Glargine [Lantus] 20 unit SQ W/BRKFST #0 08/08/16 LORazepam [Ativan] 0.5 mg PO TID #20 tab 08/08/16 Allergies Allergy/AdvReac Type Severity Reaction Status Date / Time No Known Allergies Allergy Verified 08/05/16 18:02 Review of Systems ROS Statement: Those systems with pertinent positive or pertinent negative responses have been documented in the HPI. ROS Other: All systems not noted in ROS Statement are negative. Limitations: ROS unobtainable due to patients medical condition Constitutional: Denies: fever Respiratory: Denies: cough Cardiovascular: Denies: chest pain Gastrointestinal: Reports: abdominal pain, nausea, vomiting. Denies: hematochezia Musculoskeletal: Denies: back pain Skin: Denies: rash Neurological: Denies: headache Past Medical History Past Medical History: Heart Failure, Diabetes Mellitus, Hypertension, Pneumonia , Renal Disease, Rheumatoid Arthritis (RA), Skin Disorder Additional Past Medical History / Comment(s): Pt recently admitted to [facility] on with acute DKA, metabolic encephalopathy, hyperkalemia and hyponatremia. Other HX: IDDM type I poorly controlled, DKAs, diabetic gastroparesis, bilateral feet/hands peripheral neuropathy, blood behind both eyes, peptic ulcer disease/duodenal ulcer/gastritis with erosions, previous hospitalization for pulmonary edema and bilateral pleural effusion and subsequent evaluation showed a preserved LV function with an ejection fraction of around 50%, CKD stage III, normocytic chronic anemia, rheumatoid arthritis, DJD, chronic back pain, osteoarthritis-generalized, eczema, psoriasis, ear infections, hx of narcotic abuse, cocaine abuse and alcohol abuse. History of Any Multi-Drug Resistant Organisms: MRSA Date of last positivie culture/infection: 02/25/08 MDRO Source:: Neck Past Surgical History: Adenoidectomy, Tonsillectomy Additional Past Surgical History / Comment(s): colonoscopy 2009, EGD, lt great toe amp, and part of 2nd toe. Past Anesthesia/Blood Transfusion Reactions: No Reported Reaction Past Psychological History: No Psychological Hx Reported Additional Psychological History / Comment(s): Pt staying with friends in an apartment. Smoking Status: Never smoker Past Alcohol Use History: None Reported Additional Past Alcohol Use History / Comment(s): PT has STATED in PMH that he DRINKS OCC BUT LESS THAN 14 PER WEEK Past Drug Use History: None Reported Additional Drug Use History / Comment(s): PT PMH stated pt DENIES ANY DRUG USE IN AT LEAST 7-8 YEARS. 06/18/16 toxicology + for cocaine. 06/29/16 toxicology + or cocaine. 07/06/16 toxicology + for cocaine. - Past Family History Father Family Medical History: Diabetes Mellitus, Hypertension Additional Family Medical History / Comment(s): father Mother Additional Family Medical History / Comment(s): pyschiatric issues. General Exam Limitations: no limitations General appearance: alert, in distress Head exam: Present: atraumatic, normocephalic Eye exam: Present: normal appearance. Absent: scleral icterus, conjunctival injection ENT exam: Present: mucous membranes dry Neck exam: Present: normal inspection Respiratory exam: Present: normal lung sounds bilaterally. Absent: respiratory distress, wheezes, rales, rhonchi, stridor Cardiovascular Exam: Present: normal rhythm, tachycardia, normal heart sounds. Absent: systolic murmur, diastolic murmur, rubs, gallop GI/Abdominal exam: Present: soft. Absent: distended, tenderness, guarding, rebound, mass Extremities exam: Absent: pedal edema, calf tenderness Back exam: Absent: CVA tenderness (R), CVA tenderness (L) Neurological exam: Present: alert. Absent: motor sensory deficit Skin exam: Present: warm, dry, intact, normal color. Absent: rash Course Vital Signs 08/11/16 08/11/16 04:32 06:19 Temperature 98.4 F Pulse Rate 101 H 93 Respiratory 16 16 Rate Blood Pressure 145/65 145/65 O2 Sat by Pulse 100 98 Oximetry EKG Findings - EKG Results: EKG: interpreted by ERMD, sinus rhythm, normal axis (Normal), normal QRS (Normal ) EKG shows: tachycardia (Rate approximately 104 bpm) - Blocks, Fowler, Hypertrophy, ST Abn: Repolarization changes or abnormalities: nonspecific abnormality, ST segment, and/or T wave Medical Decision Making - Lab Data Result diagrams: 08/11/16 04:30 08/11/16 04:30 Lab Results 08/11/16 08/11/16 08/11/16 Range/Units 04:30 04:30 04:30 WBC 7.6 (3.8-10.6) k/uL RBC 3.84 L (4.30-5.90) m/uL Hgb 12.1 L (13.0-17.5) gm/dL Hct 41.1 (39.0-53.0) % MCV 107.2 H D (80.0-100.0) fL MCH 31.5 (25.0-35.0) pg MCHC 29.3 L (31.0-37.0) g/dL RDW 13.9 (11.5-15.5) % Plt Count 297 (150-450) k/uL Neutrophils % 78 % Lymphocytes % 12 % Monocytes % 8 % Eosinophils % 0 % Basophils % 0 % Neutrophils # 5.9 (1.3-7.7) k/uL Lymphocytes # 0.9 L (1.0-4.8) k/uL Monocytes # 0.6 (0-1.0) k/uL Eosinophils # 0.0 (0-0.7) k/uL Basophils # 0.0 (0-0.2) k/uL Hypochromasia Marked Macrocytosis Moderate Sodium 129 L (137-145) mmol/L Potassium 5.7 H (3.5-5.1) mmol/L Chloride 97 L (98-107) mmol/L Carbon Dioxide 8 L* (22-30) mmol/L Anion Gap 24 mmol/L BUN 31 H (9-20) mg/dL Creatinine 1.50 H (0.66-1.25) mg/dL Est GFR (MDRD) Af Amer 59 (>60 ml/min/1.73 sqM) Est GFR (MDRD) Non-Af 48 (>60 ml/min/1.73 sqM) Glucose 800 H* (74-99) mg/dL POC Glucose (mg/dL) (75-99) mg/dL POC Glu Blog Writer ID Calcium 8.6 (8.4-10.2) mg/dL Acetone, Qual Positive (Negative) 08/11/16 08/11/16 Range/Units 04:31 06:13 WBC (3.8-10.6) k/uL RBC (4.30-5.90) m/uL Hgb (13.0-17.5) gm/dL Hct (39.0-53.0) % MCV (80.0-100.0) fL MCH (25.0-35.0) pg MCHC (31.0-37.0) g/dL RDW (11.5-15.5) % Plt Count (150-450) k/uL Neutrophils % % Lymphocytes % % Monocytes % % Eosinophils % % Basophils % % Neutrophils # (1.3-7.7) k/uL Lymphocytes # (1.0-4.8) k/uL Monocytes # (0-1.0) k/uL Eosinophils # (0-0.7) k/uL Basophils # (0-0.2) k/uL Hypochromasia Macrocytosis Sodium (137-145) mmol/L Potassium (3.5-5.1) mmol/L Chloride (98-107) mmol/L Carbon Dioxide (22-30) mmol/L Anion Gap mmol/L BUN (9-20) mg/dL Creatinine (0.66-1.25) mg/dL Est GFR (MDRD) Af Amer (>60 ml/min/1.73 sqM) Est GFR (MDRD) Non-Af (>60 ml/min/1.73 sqM) Glucose (74-99) mg/dL POC Glucose (mg/dL) >600 H >600 H (75-99) mg/dL POC Glu Blog Writer ID Marland, Kymberly Marland, Kymberly Calcium (8.4-10.2) mg/dL Acetone, Qual (Negative) Critical Care Time Critical Care Time: Yes (30 minutes) Disposition Clinical Impression: DKA (diabetic ketoacidoses) Disposition: ADMITTED IP TO THIS [facility] Condition: Critical
[2016-08-11] MEDS ORDERED: INSULIN REGULAR 100 UNIT in SODIUM CHLORIDE 0.9% 100 ML IV SCH (06:30)
[2016-08-11] MEDS: SODIUM CHLORIDE 0.9% 1,000 ML IV SCH ×3 (06:36→17:06)
[2016-08-11 07:09] LABS: Glucose,Whole Blood >600 mg/dL (75-99)
[2016-08-11 07:53] LABS: Glucose,Whole Blood 528 mg/dL (75-99)
[2016-08-11 09:01] LABS: Glucose,Whole Blood 460 mg/dL (75-99)
[2016-08-11 09:03] LABS: Phosphorous 3.5 mg/dL (2.5-4.5); Potassium 5.9 mmol/L (3.5-5.1)
[2016-08-11 09:58] LABS: Glucose,Whole Blood 374 mg/dL (75-99)
[2016-08-11 10:56] LABS: Glucose,Whole Blood 460 mg/dL (75-99)
--- NOTE | 2016-08-11 11:48 | P.CNPUL ---
History of Present Illness Consult date: 08/11/16 Requesting physician: Lencho Thakur Reason for consult: other (Acute diabetic ketoacidosis) Chief complaint: Abdominal pain and nausea and vomiting secondary to DKA History of present illness: This is a 56-year-old -[place] male with history of type 1 diabetes, he was here last on 08/05/2016 and discharged on 08/08/2016. Patient was treated for acute diabetic ketoacidosis, and during his last admission he had many other medical problems including essential hypertension, rheumatoid arthritis, electrolytes imbalance, history of alcohol abuse, chronic pain syndrome, noncompliance, patient was brought into the ER last night again with similar symptoms related to his acute diabetic ketoacidosis patient was complaining of nausea vomiting and abdominal pain. Patient was noted to have elevated blood sugar as high as 800, he had positive ketones, and he had a significant anion gap metabolic acidosis. Patient was admitted, and this consult was initiated because the patient was admitted to the ICU. Overnight the patient is better since receiving fluids in the form of 0.9 normal saline fluid boluses were given in the ER, and this morning his bicarb was noted to be 12, anion gap is 17 , BUN is 33 creatinine is 1.55 potassium is 5.9 blood sugar is 605 early today. Patient remains on insulin drip, and on 0.9 normal saline at this point. Denies any shortness of breath no cough no wheezing. His abdominal pain seems to have significantly improved overnight. Review of Systems 12 point review of systems were obtained please refer to pertinent positives and negatives in HPI. Past Medical History Past Medical History: Heart Failure, Diabetes Mellitus, Hypertension, Pneumonia , Renal Disease, Rheumatoid Arthritis (RA), Skin Disorder Additional Past Medical History / Comment(s): Pt recently admitted to [facility] on with acute DKA, metabolic encephalopathy, hyperkalemia and hyponatremia. Other HX: IDDM type I poorly controlled, DKAs, diabetic gastroparesis, bilateral feet/hands peripheral neuropathy, blood behind both eyes, peptic ulcer disease/duodenal ulcer/gastritis with erosions, previous hospitalization for pulmonary edema and bilateral pleural effusion and subsequent evaluation showed a preserved LV function with an ejection fraction of around 50%, CKD stage III, normocytic chronic anemia, rheumatoid arthritis, DJD, chronic back pain, osteoarthritis-generalized, eczema, psoriasis, ear infections, hx of narcotic abuse, cocaine abuse and alcohol abuse. History of Any Multi-Drug Resistant Organisms: MRSA Date of last positivie culture/infection: 02/25/08 MDRO Source:: Neck Past Surgical History: Adenoidectomy, Tonsillectomy Additional Past Surgical History / Comment(s): colonoscopy 2009, EGD, lt great toe amp, and part of 2nd toe. Past Anesthesia/Blood Transfusion Reactions: No Reported Reaction Past Psychological History: No Psychological Hx Reported Additional Psychological History / Comment(s): Pt staying with friends in an apartment. Smoking Status: Never smoker Past Alcohol Use History: None Reported Additional Past Alcohol Use History / Comment(s): PT has STATED in PMH that he DRINKS OCC BUT LESS THAN 14 PER WEEK Past Drug Use History: None Reported Additional Drug Use History / Comment(s): PT PMH stated pt DENIES ANY DRUG USE IN AT LEAST 7-8 YEARS. 06/18/16 toxicology + for cocaine. 06/29/16 toxicology + or cocaine. 07/06/16 toxicology + for cocaine. - Past Family History Father Family Medical History: Diabetes Mellitus, Hypertension Additional Family Medical History / Comment(s): father Mother Additional Family Medical History / Comment(s): pyschiatric issues. Medications and Allergies Home Medications Medication Instructions Recorded Confirmed Type Famotidine [Pepcid] 40 mg PO HS 07/24/16 08/11/16 History Metoclopramide [Reglan] 10 mg PO ACHS 07/24/16 08/11/16 History Gabapentin 600 mg PO TID 08/05/16 08/11/16 History Ibuprofen [Motrin] 800 mg PO Q8H PRN 08/05/16 08/11/16 History Insulin Aspart [NovoLOG] See Protocol SQ AC-TID 08/05/16 08/11/16 History Metoprolol Tartrate [Lopressor] 25 mg PO BID 08/05/16 08/11/16 History traZODone HCL [Desyrel] 200 mg PO HS 08/05/16 08/11/16 History Allergies Allergy/AdvReac Type Severity Reaction Status Date / Time No Known Allergies Allergy Verified 08/11/16 10:48 Physical Exam Vitals: Vital Signs Temp Pulse Resp BP Pulse Ox 08/11/16 09:00 88 15 133/55 97 08/11/16 08:00 99.3 F 90 15 142/60 98 08/11/16 07:00 91 17 162/70 96 08/11/16 06:52 96 19 08/11/16 06:19 93 16 145/65 98 Intake and Output 08/10/16 08/11/16 08/11/16 22:59 06:59 14:59 Intake Total 600 Output Total 750 Balance -150 Intake: IV 600 Sodium Chloride 0.9% 1, 600 000 ml @ 200 mls/hr IV . Q5H [facility] Rx#:[id number] Output: Urine 750 Other: Voiding Method Urinal Physical Exam: Revealed a 56-year-old in no distress HEENT:[Neck is supple.] [No neck masses.] [No thyromegaly.] [No JVD.] Chest: [Clear throughout, no crackles, no rhonchi, no wheezes.] Cardiac Exam: [Normal S1 and S2, no S3 gallop, no murmur.] Abdomen: [Soft, nontender, no megaly, no rebound, no guarding, normal bowel sounds.] Extremities: [No clubbing, no edema, no cyanosis.] Neurological Exam: [No focal neurologic deficit.] Results - Laboratory Findings CBC and BMP: 08/11/16 04:30 08/11/16 08:07 Abnormal lab findings: Abnormal Labs 08/11/16 08/11/16 08/11/16 07:07 07:51 08:07 Sodium 131 L Potassium 5.9 H Carbon Dioxide 12 L BUN 33 H Creatinine 1.55 H Glucose 605 H* POC Glucose (mg/dL) >600 H 528 H 08/11/16 08/11/16 08/11/16 09:00 09:56 10:54 Sodium Potassium Carbon Dioxide BUN Creatinine Glucose POC Glucose (mg/dL) 460 H 374 H 460 H Assessment and Plan Plan: Impression: 1 acute diabetic ketoacidosis most likely secondary to noncompliance. 2 chronic pain syndrome 3 multiple comorbidities including type 1 diabetes, hypertension, rheumatoid arthritis, diabetic gastroparesis, diabetic neuropathy, peptic ulcer disease, remote history of congestive heart failure, history of narcotic abuse, and history of chronic kidney disease stage III. Recommendation: Continue insulin drip, continue IV fluid in the form of 0.9 normal saline, monitor in the ICU and follow the DKA protocol, possibly transferred to regular medical floor later today. Time with Patient: Greater than 30
[2016-08-11 12:00] LABS: Glucose,Whole Blood 379 mg/dL (75-99)
[2016-08-11 13:07] LABS: Glucose,Whole Blood 234 mg/dL (75-99)
[2016-08-11 13:12] LABS: Anion Gap 10 mmol/L; Blood Urea Nitrogen 30 mg/dL (9-20); Carbon Dioxide 20 mmol/L (22-30); Chloride 107 mmol/L (98-107); Glucose 303 mg/dL (74-99); Non-African American GFR(MDRD) 52 (>60 ml/min/1.73 sqM); Phosphorous 2.7 mg/dL (2.5-4.5); Potassium 4.9 mmol/L (3.5-5.1); Sodium 137 mmol/L (137-145)
[2016-08-11] MEDS ORDERED: INSULIN NPH 300 UNIT/3 ML VIAL SQ ONE (13:52)
[2016-08-11] MEDS ORDERED: D5-0.45% NACL WITH KCL 20MEQ/L 1,000 ML IV SCH (14:00)
[2016-08-11 14:12] LABS: Glucose,Whole Blood 180 mg/dL (75-99)
[2016-08-11 15:17] VITALS: BMI 29.6
[2016-08-11] MEDS ORDERED: POLYETHYLENE GLYCOL 3350 17 GM POWD.PACK PO PRN (16:29)
[2016-08-11] MEDS ORDERED: INSULIN GLARGINE 100 UNIT/ML 10 ML VIAL SQ ONE (16:30)
[2016-08-11] MEDS ORDERED: ALPRAZolam 0.25 MG TAB PO PRN (16:31)
[2016-08-11 17:28] LABS: Glucose,Whole Blood 94 mg/dL (75-99)
[2016-08-11] MEDS ORDERED: INSULIN LISPRO (humaLOG) 300 UNIT/3 ML VIAL SQ SCH (17:30)
--- NOTE | 2016-08-11 17:30 | HP ---
DATE OF ADMISSION: The chief complaint is hyperglycemia. HISTORY OF PRESENT ILLNESS: This 56-year-old gentleman with a past medical history of CHF, history of diabetes, hypertension, history of multiple hospital admission with noncompliance, history of rheumatoid arthritis, history of renal disease, history of skin disease, aortic gastroparesis and multiple problems with diabetes being followed with no primary physician in the outpatient setting, was recently admitted with diabetic ketoacidosis, uncontrolled diabetes mellitus type 2, came to [facility]. Patient also had change in mental status. Was treated with insulin drip and patient improved significantly. The patient will be discharged home after consent from Social Work and Anesthesiology Physician apparently at home. The patient has some abdominal pain, vomiting and the blood sugar is extremely high when EMS checked and in the ER at this time the blood sugar was found to be 800 with a CO2 of 8 and patient was started on DKA protocol, admitted in the ICU. Overnight the patient was closely monitored. Anion gap was 24 but 10 currently. There is no history of fever, chills or rigors, No history of headaches, loss of consciousness. The past medical history of diabetes mellitus type 2, history of noncompliance, CHF, hypertension, pneumonia, history of rheumatoid arthritis, history of diabetic gastroparesis. Medications prior to admission include home medications: 1. NovoLog a.c. t.i.d. 2. Folic acid 1 mg daily. 3. Pepcid 40 mg q.h.s. 4. Multivitamin 1 p.o. daily. 5. Lopressor 25 mg b.i.d. 6. Reglan 10 mg a.c. at bedtime. 7. Magnesium hydroxide 5 mL t.i.d. 8. Zestril 10 mg daily. 9. Ativan 0.5 mg p.o. t.i.d. 10. Lantus 20 units subQ with breakfast. 11. Desyrel 200 mg p.o. q.h.s. 12. Vitamin B with Thiamine 100 mg daily. 13. MiraLax 17 gm daily. 14. Prilosec 40 mg a.c. breakfast. 15. Motrin 800 mg q.8 p.r.n. 16. Gabapentin 600 mg p.o. t.i.d. Allergies are none. FAMILY HISTORY: History of diabetes and hypertension. SOCIAL HISTORY: No history of smoking, no history of alcohol intake per chart, previous substance abuse. REVIEW OF SYSTEMS: ENT: No diminished hearing. No diminished vision. CARDIOVASCULAR: No angina, palpitations. RESPIRATORY: No cough. GI: As mentioned earlier. : As mentioned earlier. NERVOUS SYSTEM: No numbness or weakness. ALLERGY/IMMUNOLOGY: No asthma or hayfever. MUSCULOSKELETAL: As mentioned earlier. DERMATOLOGY: As mentioned earlier. ENDOCRINE: As mentioned earlier. CONSTITUTIONAL: As mentioned earlier. HEMATOLOGY: Negative. PSYCHIATRY: As mentioned earlier. PHYSICAL EXAMINATION: Patient is alert and oriented x2. Pulse 84, blood pressure 130/62, respirations 12, temperature is 98 degrees, pulse ox 97% on room air. HEENT: Oral mucosa moist. NECK: No jugular venous distension, no carotid bruit, no lymph node enlargement. CARDIOVASCULAR: S1, S2, muffled, no S3, no S4. RESPIRATORY: Breath sounds diminished at the bases, a few scattered rhonchi, no crackles. Abdomen is soft, obese, nontender. Mild diffuse otherwise, no focal tenderness elicited. No guarding or rigidity. Bowel sounds present. EXTREMITIES: Legs no edema. No swelling. NERVOUS SYSTEM: Higher function as mentioned, moves all 4 limbs, no focal motor deficits. LYMPHATICS: No lymph nodes palpable in the neck, axillae or groin. SKIN: No ulcer, rash or bleeding. JOINTS: No abnormal activity. LABS: WBC is 7.6, hemoglobin 12.1, sodium 129, potassium 5.7, CO2 is 8, glucose is 800. ASSESSMENT: 1. Acute diabetic ketoacidosis with acute severe acidosis. 2. Change in mental status, metabolic encephalopathy secondary to acute diabetic ketoacidosis. 3. Hypernatremia. 4. Hyperkalemia. 5. Increased creatinine with chronic kidney disease stage III. 6. Anemia, macrocytic. 7. Diabetes mellitus type 2, uncontrolled. 8. History of congestive heart failure. 9. Hypertension. 10. History of pneumonia. 11. History of chronic kidney disease stage III from diabetic nephropathy. 12. Rheumatoid arthritis. 13. Hyperkalemia, mild. 14. History of peptic disease, duodenal gastric ulcers and erosions. 15. Degenerative joint disease. 16. History of narcotic abuse and cocaine abuse, alcohol abuse, previously per chart. 17. History of psoriasis. 18. History of eczema. 19. History of methicillin-resistant Staphylococcus aureus. 20. History of congestive heart failure with chronic diastolic dysfunction, ejection fraction 50%. 21. History of tonsillectomy, adenoidectomy as mentioned previously. 22. NO CODE, NO CARDIOPULMONARY RESUSCITATION, NO VENTILATOR. RECOMMENDATION: In this a 56-year-old gentleman who presented with multiple complex medical issues, I would recommend to continue with the current medication, continue with the symptomatic treatment. Gap as closely recommended with transition of insulin drip and initiate home dose of Lantus plus scale. Resume the rest of medications. Home medications will continue. Will follow the patient closely. The patient also had significant issues with compliance. Social Work and Anesthesiology Physician to follow those aspects. Further recommendations to follow. MTDD
[2016-08-11] MEDS: INSULIN LISPRO (humaLOG) 300 UNIT/3 ML VIAL SQ SCH ×2 (17:37→20:32)
[2016-08-11] MEDS ORDERED: oxyCODONE-APAP 10-325MG 1 EACH TAB PO PRN (18:44)
[2016-08-11] MEDS: METOCLOPRAMIDE 10 MG TAB PO SCH ×2 (20:12→20:32)
[2016-08-11] MEDS: PANTOPRAZOLE 40 MG/10 ML VIAL IVP SCH (20:31)
[2016-08-11] MEDS: traZODone HCL 100 MG TAB PO SCH (20:32)
[2016-08-11] MEDS: METOPROLOL TARTRATE 25 MG TAB PO SCH (20:32)
[2016-08-11 20:33] LABS: Glucose,Whole Blood 193 mg/dL (75-99)
[2016-08-11] MEDS ORDERED: FAMOTIDINE 20 MG TAB PO SCH (21:00)
[2016-08-11] MEDS ORDERED: INSULIN GLARGINE 100 UNIT/ML 10 ML VIAL SQ SCH (21:00)
[2016-08-11] MEDS ORDERED: MAG HYDROX/AL HYDROX/SIMETH 30 ML CUP PO PRN (22:00)
[2016-08-11] MEDS: oxyCODONE-APAP 10-325MG 1 EACH TAB PO PRN (22:29)
[2016-08-11] MEDS: LORazepam 0.5 MG TAB PO SCH (22:29)
[2016-08-11] MEDS: TEMAZEPAM 15 MG CAP PO PRN (22:29)
[2016-08-11] MEDS: GABAPENTIN 300 MG CAP PO SCH (22:30)
[2016-08-12] MEDS: oxyCODONE-APAP 10-325MG 1 EACH TAB PO PRN ×2 (06:46→19:33)
[2016-08-12 07:13] LABS: Glucose,Whole Blood 68 mg/dL (75-99)
[2016-08-12 07:32] LABS: Glucose,Whole Blood 84 mg/dL (75-99)
[2016-08-12] MEDS: INSULIN LISPRO (humaLOG) 300 UNIT/3 ML VIAL SQ SCH ×4 (07:56→21:24)
[2016-08-12] MEDS: INSULIN GLARGINE 100 UNIT/ML 10 ML VIAL SQ SCH (08:35)
[2016-08-12] MEDS: METOPROLOL TARTRATE 25 MG TAB PO SCH ×2 (08:35→21:25)
[2016-08-12] MEDS: LISINOPRIL 10 MG TAB PO SCH (08:35)
[2016-08-12] MEDS: GABAPENTIN 300 MG CAP PO SCH ×3 (08:35→21:25)
[2016-08-12] MEDS: METOCLOPRAMIDE 10 MG TAB PO SCH ×4 (08:35→21:25)
[2016-08-12] MEDS: PANTOPRAZOLE 40 MG/10 ML VIAL IVP SCH ×2 (08:36→21:25)
[2016-08-12] MEDS: THIAMINE 100 MG TAB PO SCH (08:36)
[2016-08-12] MEDS: LORazepam 0.5 MG TAB PO SCH ×3 (08:37→21:27)
[2016-08-12 08:48] LABS: Basophils % (A) 1 %; CH 31.3; CHCM 31.7; Eosinophils # (A) 0.4 k/uL (0-0.7); Eosinophils % (A) 7 %; HCT 36.6 % (39.0-53.0); HDW 2.57; HGB 11.4 gm/dL (13.0-17.5); Luc # (Auto) 0.21; Luc % (Auto) 4; Lymphocytes # (A) 2.6 k/uL (1.0-4.8); Lymphocytes % (A) 49 %; MCH 31.2 pg (25.0-35.0); MCHC 31.3 g/dL (31.0-37.0); Mean Platelet Volume 8.4; Monocytes # (A) 0.3 k/uL (0-1.0); Monocytes % (A) 5 %; Neutrophils # (A) 1.8 k/uL (1.3-7.7); Neutrophils % (A) 34 %; RBC 3.67 m/uL (4.30-5.90); RDW 14.3 % (11.5-15.5); WBC 5.3 k/uL (3.8-10.6); WBC (Perox) 5.62
[2016-08-12 08:57] LABS: MCV 99.6 fL (80.0-100.0)
[2016-08-12 08:58] LABS: Anion Gap 9 mmol/L; Blood Urea Nitrogen 20 mg/dL (9-20); Calcium 8.9 mg/dL (8.4-10.2); Carbon Dioxide 22 mmol/L (22-30); Chloride 109 mmol/L (98-107); Glucose 94 mg/dL (74-99); Non-African American GFR(MDRD) >60 (>60 ml/min/1.73 sqM); Potassium 4.4 mmol/L (3.5-5.1); Sodium 140 mmol/L (137-145)
[2016-08-12] MEDS ORDERED: INSULIN GLARGINE 100 UNIT/ML 10 ML VIAL SQ SCH (09:00)
[2016-08-12 11:08] LABS: Glucose,Whole Blood 192 mg/dL (75-99)
--- NOTE | 2016-08-12 11:42 | P.PN ---
Subjective Progress note dated 08/12/2016 56-year-old male well-known to our service. Has repeated episodes of diabetic ketoacidosis. Was treated initially emergency room in the ICU. Transferred down to the fifth floor. The patient's doing well. His anion gap is been reversed. In addition his sugars are better control. His bicarbonate concentration is much much more elevated than when he first came in. Seemed be doing relatively well. The patient continued be followed by the primary service. No ongoing active pulmonary issues to report. No cough no wheezing or shortness of breath. Not coughing up any phlegm or blood. No fever no chills. Objective - Vital Signs Vital signs: Vital Signs Temp 97.3 F L 08/12/16 07:00 Pulse 56 L 08/12/16 07:00 Resp 18 08/12/16 07:00 BP 139/72 08/12/16 07:00 Pulse Ox 99 08/12/16 07:00 Intake & Output 08/11/16 08/12/16 08/12/16 18:59 06:59 18:59 Intake Total 1550 240 Output Total 2300 Balance -750 240 Weight 88.451 kg Intake: IV 1400 Sodium Chloride 0.9% 1, 1400 000 ml @ 200 mls/hr IV . Q5H [facility] Rx#:[id number] Intake, IV Titration 150 Amount D5-0.45% NaCl with KCl 150 20Meq/l 1,000 ml @ 150 mls/hr IV .Q6H40M [facility] Rx# :[id number] Oral 240 Output: Urine 2300 Other: Voiding Method Urinal Urinal Urinal # Voids 1 - Exam No acute distress, oriented 3. HEENT examination is grossly unremarkable. Mucous membranes are dry. No oral lesions. Neck supple. Full range of motion. No adenopathy or thyromegaly. Cardiovascular examination reveals regular rhythm rate. Heart rate about 70. S1 and S2 normal. Lungs clear breath sounds equal. No wheezes or rhonchi. Abdomen soft bowel sounds are heard. Extremities are intact. - Labs CBC & Chem 7: 08/12/16 07:51 08/12/16 07:51 Labs: Abnormal Lab Results - Last 24 Hours (Table) 08/11/16 08/11/16 08/11/16 Range/Units 11:58 12:35 13:05 RBC (4.30-5.90) m/uL Hgb (13.0-17.5) gm/dL Hct (39.0-53.0) % Chloride (98-107) mmol/L Carbon Dioxide 20 L (22-30) mmol/L BUN 30 H (9-20) mg/dL Creatinine 1.40 H (0.66-1.25) mg/dL Glucose 303 H (74-99) mg/dL POC Glucose (mg/dL) 379 H 234 H (75-99) mg/dL 08/11/16 08/11/16 08/12/16 Range/Units 14:11 20:31 06:50 RBC (4.30-5.90) m/uL Hgb (13.0-17.5) gm/dL Hct (39.0-53.0) % Chloride (98-107) mmol/L Carbon Dioxide (22-30) mmol/L BUN (9-20) mg/dL Creatinine (0.66-1.25) mg/dL Glucose (74-99) mg/dL POC Glucose (mg/dL) 180 H 193 H 68 L (75-99) mg/dL 08/12/16 08/12/16 08/12/16 Range/Units 07:51 07:51 11:06 RBC 3.67 L (4.30-5.90) m/uL Hgb 11.4 L (13.0-17.5) gm/dL Hct 36.6 L (39.0-53.0) % Chloride 109 H (98-107) mmol/L Carbon Dioxide (22-30) mmol/L BUN (9-20) mg/dL Creatinine (0.66-1.25) mg/dL Glucose (74-99) mg/dL POC Glucose (mg/dL) 192 H (75-99) mg/dL Assessment and Plan (1) DKA (diabetic ketoacidoses) Status: Acute Plan: plan dated 08/12/2016 The patient's labs medications x-rays and other testing is all reviewed. We'll review the medications. The patient could be followed by the primary service. No active pulmonary problems at this time. Additional recommendations suggestions are forthcoming. Thank you for allowing to participate in the care of this patient. Should she need us back, please hesitate to call us. Time with Patient: Less than 30
[2016-08-12] MEDS ORDERED: MULTIVITAMINS, THERA 1 EACH TAB PO SCH (12:00)
[2016-08-12] MEDS ORDERED: FOLIC ACID 1 MG TAB PO SCH (12:00)
[2016-08-12 12:02] LABS: Hemoglobin A1C 10.4 % (4.2-6.1)
[2016-08-12 17:20] LABS: Glucose,Whole Blood 207 mg/dL (75-99)
[2016-08-12] MEDS: SODIUM CHLORIDE 0.9% 1,000 ML IV SCH (17:20)
[2016-08-12 20:27] LABS: Glucose,Whole Blood 163 mg/dL (75-99)
[2016-08-12] MEDS: traZODone HCL 100 MG TAB PO SCH (21:25)
--- NOTE | 2016-08-12 21:57 | PN ---
DATE OF SERVICE: 08/12/2016 This 56-year-old gentleman who was admitted with acute diabetic ketoacidosis, acute severe acidosis being closely monitored. No chest pain or palpitation. No fever. The patient has history of noncompliance and repeat admissions. Complaining of abdominal pain at this time. On exam, alert and oriented times three. Pulse is 62. Blood pressure 112/76, respirations 20, temperature 97.9, pulse ox 98% on room air. HEENT: Conjunctivae normal . NECK: No jugular venous distention. CARDIOVASCULAR: S1, S2 muffled. RESPIRATORY: Breath sounds diminished at the bases. No rhonchi. No crackles. ABDOMEN: Soft. Mild diffuse discomfort. LEGS: No edema. No swelling. CENTRAL NERVOUS SYSTEM: No focal deficits. LABS: WBC 5.0, hemoglobin 11.4. ASSESSMENT: 1. Acute diabetic ketoacidosis with acute severe metabolic acidosis. 2. Change in mental status metabolic encephalopathy secondary to acute diabetic ketoacidosis. 3. Hyponatremia. 4. Hyperkalemia. 5. Abdominal discomfort, possibly diabetic gastroparesis and acute gastritis. 6. Increased creatinine with chronic kidney disease, stage III. 7. Anemia, macrocytic. 8. Diabetes type 2 uncontrolled. 9. History of congestive heart failure with chronic diastolic dysfunction, ejection fraction 50%. 10. Hypertension, essential. 11. History of pneumonia. 12. History of chronic kidney disease stage III from diabetic nephropathy. 13. Rheumatoid arthritis history. 14. Mild hyperkalemia. 15. History of peptic ulcer disease with duodenal gastric ulcer erosions previously. 16. History of degenerative joint disease. 17. History of narcotic abuse and cocaine abuse, alcohol abuse, previously per chart. 18. History of psoriasis. 19. History of eczema. 20. History of methicillin-resistant Staphylococcus aureus. 21. History of tonsillectomy and adenoidectomy. 22. NO CODE, NO CPR, NO VENT. RECOMMENDATIONS AND DISCUSSION: Recommend to continue current medications. Continue with monitoring. Symptomatic treatment. I would recommend continue current medications, continue to monitor blood sugars closely. Would also recommend Dr. Johansen's evaluation, gastroenterology evaluation. Guarded prognosis. The importance of compliance was stressed to the patient. Further recommendations to follow. target worker and case management coordinator also to work regarding. MTDD
[2016-08-12] MEDS: TEMAZEPAM 15 MG CAP PO PRN (22:29)
[2016-08-13] MEDS: oxyCODONE-APAP 10-325MG 1 EACH TAB PO PRN ×2 (00:29→08:20)
[2016-08-13 07:21] LABS: Glucose,Whole Blood 142 mg/dL (75-99)
[2016-08-13 08:03] VITALS: BP 131/63; PULSE 65; RESP 20; TEMP 97.4
[2016-08-13] MEDS: INSULIN GLARGINE 100 UNIT/ML 10 ML VIAL SQ SCH (08:09)
[2016-08-13] MEDS: INSULIN LISPRO (humaLOG) 300 UNIT/3 ML VIAL SQ SCH (08:09)
[2016-08-13] MEDS: LISINOPRIL 10 MG TAB PO SCH (08:10)
[2016-08-13] MEDS: GABAPENTIN 300 MG CAP PO SCH (08:10)
[2016-08-13] MEDS: METOCLOPRAMIDE 10 MG TAB PO SCH (08:10)
[2016-08-13] MEDS: THIAMINE 100 MG TAB PO SCH (08:10)
[2016-08-13] MEDS: LORazepam 0.5 MG TAB PO SCH (08:10)
[2016-08-13] MEDS: METOPROLOL TARTRATE 25 MG TAB PO SCH (08:10)
[2016-08-13] MEDS ORDERED: PANTOPRAZOLE 40 MG TABLET PO SCH (09:00)
[2016-08-13 09:10] LABS: Basophils % (A) 1 %; CH 31.3; CHCM 31.9; Eosinophils # (A) 0.3 k/uL (0-0.7); Eosinophils % (A) 6 %; HCT 35.3 % (39.0-53.0); HDW 2.58; HGB 11.5 gm/dL (13.0-17.5); Luc # (Auto) 0.15; Luc % (Auto) 4; Lymphocytes # (A) 2.5 k/uL (1.0-4.8); Lymphocytes % (A) 60 %; MCHC 32.5 g/dL (31.0-37.0); MCV 98.7 fL (80.0-100.0); Mean Platelet Volume 8.6; Monocytes # (A) 0.3 k/uL (0-1.0); Monocytes % (A) 6 %; Neutrophils % (A) 23 %; RBC 3.58 m/uL (4.30-5.90); RDW 14.5 % (11.5-15.5); WBC 4.2 k/uL (3.8-10.6); WBC (Perox) 4.09
[2016-08-13] MEDS: SODIUM CHLORIDE 0.9% 1,000 ML IV SCH (09:22)
[2016-08-13 09:48] LABS: Anion Gap 9 mmol/L; Blood Urea Nitrogen 16 mg/dL (9-20); Calcium 8.9 mg/dL (8.4-10.2); Carbon Dioxide 22 mmol/L (22-30); Chloride 110 mmol/L (98-107); Glucose 168 mg/dL (74-99); Non-African American GFR(MDRD) >60 (>60 ml/min/1.73 sqM); Sodium 141 mmol/L (137-145)
[2016-08-13 10:02] LABS: Potassium 5.3 mmol/L (3.5-5.1)
[2016-08-13 10:35] LABS: RBC Morphology Normal
[2016-08-13 11:39] LABS: Glucose,Whole Blood 116 mg/dL (75-99)
--- NOTE | 2016-08-14 05:51 | DS ---
DATE OF ADMISSION: 08/11/2016 DATE OF DISCHARGE: 08/13/2016 A 56-year-old highly noncompliant with medications, multiple admissions for diabetic ketoacidosis admitted for DKA, which resolved and patient will be discharged today. Patient has minimally elevated potassium of 5.3 with slight hemolysis. Patient is expected to come back. Patient was seen and examined on the day of discharge. Vitals are stable. PHYSICAL EXAMINATION: GENERAL: The patient is alert and oriented x3, not in any acute distress. Well developed, well nourished. HEENT: Pupils are round and equally reacting to light. EOMI. No scleral icterus. No conjunctival pallor. Normocephalic, atraumatic. No pharyngeal erythema. No thyromegaly. CARDIOVASCULAR: S1 and S2 present. No murmurs, rubs, or gallops. PULMONARY: Chest is clear to auscultation, no wheezing or crackles. ABDOMEN: Soft, nontender, nondistended, normoactive bowel sounds. No palpable organomegaly. MUSCULOSKELETAL: No joint swelling or deformity. EXTREMITIES: No cyanosis, clubbing, or pedal edema. NEUROLOGICAL: Gross neurological examination did not reveal any focal deficits. SKIN: No rashes. FINAL DIAGNOSES: 1. Diabetic ketoacidosis due to noncompliance with medications. 2. Metabolic encephalopathy secondary to diabetic ketoacidosis, which resolved. 3. Hyponatremia which is a pseudohyponatremia secondary to hyperglycemia. 4. Hyperkalemia secondary diabetic ketoacidosis, which resolved. Present hyperkalemia is due to hemolysis. 5. Abdominal discomfort secondary to diabetic ketoacidosis. 6. Acute renal failure secondary to diabetic ketoacidosis. 7. Hypertension. 8. Peptic ulcer disease. 9. History of narcotic abuse, cocaine abuse. Patient will be discharged today, although patient most probably will come back. Patient will be discharged to follow with Dr. Sofia Limon as an outpatient. Activity as tolerated. Diabetic 1800 calorie and cardiac diet.
== END 2016-08-13 11:40 | disposition home health service (06) | DRG 637 ==
LOC: EC 04:19 → 6ICU 06:17 → 5MS5E 14:56
PROVIDERS: ADMIT Internal Medicine; ATTEND Internal Medicine
DX: E13.10 Other specified diabetes mellitus with ketoacidosis without coma (principal); G93.41 Metabolic encephalopathy; N17.9 Acute kidney failure, unspecified; K31.84 Gastroparesis; I13.0 Hypertensive heart and chronic kidney disease with heart failure and stage 1 through stage 4 chronic kidney disease, or unspecified chronic kidney disease; E87.5 Hyperkalemia; I50.32 Chronic diastolic (congestive) heart failure; N18.3 Chronic kidney disease, stage 3 (moderate); E87.1 Hypo-osmolality and hyponatremia; E11.21 Type 2 diabetes mellitus with diabetic nephropathy; E11.43 Type 2 diabetes mellitus with diabetic autonomic (poly)neuropathy; D53.9 Nutritional anemia, unspecified; Z79.4 Long term (current) use of insulin; G89.4 Chronic pain syndrome; K27.9 Peptic ulcer, site unspecified, unspecified as acute or chronic, without hemorrhage or perforation; M06.9 Rheumatoid arthritis, unspecified; M19.90 Unspecified osteoarthritis, unspecified site; Z79.899 Other long term (current) drug therapy; Z82.49 Family history of ischemic heart disease and other diseases of the circulatory system; Z83.3 Family history of diabetes mellitus; Z86.14 Personal history of Methicillin resistant Staphylococcus aureus infection; Z87.01 Personal history of pneumonia (recurrent); Z91.14 Patient's other noncompliance with medication regimen; Z91.19 Patient's noncompliance with other medical treatment and regimen; E11.22 Type 2 diabetes mellitus with diabetic chronic kidney disease
CPT/HCPCS: 36415; 80048; 80051; 82009; 82565; 82947; 83036; 84100; 84520; 85025; 93005; 96361; 96365; 96376; 99291

== ENCOUNTER 2016-08-17 07:55 | Inpatient (IN) | payer OTHER ==
[2016-08-17] MEDS ORDERED: SODIUM CHLORIDE 0.9% 1,000 ML IV ONE ×2 (07:57)
[2016-08-17 08:19] LABS: Glucose,Whole Blood >600 mg/dL (75-99)
[2016-08-17] MEDS ORDERED: INSULIN REGULAR 100 UNIT in SODIUM CHLORIDE 0.9% 100 ML IV ONE (08:38)
[2016-08-17] MEDS ORDERED: SODIUM CHLORIDE 0.9% 5,000 ML IV STA (08:39)
[2016-08-17] MEDS ORDERED: INSULIN REGULAR 100 UNIT/ML VIAL IV ONE (08:39)
[2016-08-17 08:55] LABS: INR 1.1 (<1.1); Prothrombin Time 10.8 sec (9.0-12.0)
[2016-08-17 09:01] LABS: Partial Thromboplastin Time 22.3 sec (22.0-30.0)
[2016-08-17 09:02] LABS: Basophils % (A) 0 %; CH 30.4; CHCM 27.6; Eosinophils % (A) 0 %; HCT 38.8 % (39.0-53.0); HDW 2.61; HGB 11.3 gm/dL (13.0-17.5); Hypochromasia Marked; Luc # (Auto) 0.21; Luc % (Auto) 1; Lymphocytes # (A) 1.5 k/uL (1.0-4.8); Lymphocytes % (A) 9 %; MCH 32.3 pg (25.0-35.0); MCHC 29.1 g/dL (31.0-37.0); MCV 110.8 fL (80.0-100.0); Macrocytosis Marked; Mean Platelet Volume 8.7; Monocytes # (A) 1.3 k/uL (0-1.0); Monocytes % (A) 8 %; Neutrophils # (A) 14.3 k/uL (1.3-7.7); Neutrophils % (A) 82 %; RBC 3.51 m/uL (4.30-5.90); RDW 14.8 % (11.5-15.5); WBC 17.4 k/uL (3.8-10.6); WBC (Perox) 17.23
[2016-08-17 09:05] LABS: ALT 77 U/L (21-72); AST 30 U/L (17-59); Alkaline Phosphatase 146 U/L (38-126); Anion Gap 33 mmol/L; Blood Urea Nitrogen 32 mg/dL (9-20); Calcium 9.8 mg/dL (8.4-10.2); Chloride 99 mmol/L (98-107); Non-African American GFR(MDRD) 37 (>60 ml/min/1.73 sqM); Sodium 137 mmol/L (137-145); Total Bilirubin 0.6 mg/dL (0.2-1.3); Total Protein 6.8 g/dL (6.3-8.2)
[2016-08-17] MEDS ORDERED: LORazepam 2 MG/ML SYRINGE IV STA (09:06)
[2016-08-17 09:14] LABS: Appearance,Urine Clear (Clear); Bilirubin,Urine Negative (Negative); Glucose,Urine (UA) 4+ (Negative); Leukocyte Esterase,Urine Negative (Negative); Nitrite,Urine Negative (Negative); Protein,Urine Negative (Negative); UA Billing (MACRO vs. MICRO) CHEM; Urobilinogen,Urine <2.0 mg/dL (<2.0)
[2016-08-17 09:22] LABS: Crenated RBC Present
[2016-08-17 09:25] LABS: Glucose 674 mg/dL (74-99)
[2016-08-17 09:26] LABS: Carbon Dioxide <5 mmol/L (22-30); Potassium 6.5 mmol/L (3.5-5.1)
[2016-08-17] MEDS ORDERED: ALPRAZolam 0.25 MG TAB PO PRN (09:47)
[2016-08-17] MEDS ORDERED: ACETAMINOPHEN TAB 325 MG TAB PO PRN (09:47)
[2016-08-17] MEDS ORDERED: NALOXONE 0.4 MG/ML 1 ML VIAL IV PRN (09:47)
--- NOTE | 2016-08-17 09:47 | ED ---
General Adult HPI - General Chief complaint: Recheck/Abnormal Lab/Rx Stated complaint: hypoglycemia Time Seen by Provider: 08/17/16 07:56 Source: EMS Mode of arrival: EMS - History of Present Illness Initial comments: Patient presents with generalized weakness. He has hyperglycemia. This was confirmed by EMS, and the hospital. Patient does not take his medications right early. He admits to illicit drug abuse. He complains of generalized body pain, specifically in the abdomen. Nothing makes it better or worse. He has taken no medication for this. He denies any chest pain or shortness of breath. He has no lightheadedness or dizziness. He has had no recent illnesses or sick contacts. He has no neck pain or stiffness. He has no change in vision or hearing. - Related Data Home Medications Medication Instructions Recorded Confirmed Famotidine [Pepcid] 40 mg PO HS 07/24/16 08/11/16 Metoclopramide [Reglan] 10 mg PO ACHS 07/24/16 08/11/16 Gabapentin 600 mg PO TID 08/05/16 08/11/16 Insulin Aspart [NovoLOG] See Protocol SQ AC-TID 08/05/16 08/11/16 Metoprolol Tartrate [Lopressor] 25 mg PO BID 08/05/16 08/11/16 traZODone HCL [Desyrel] 200 mg PO HS 08/05/16 08/11/16 Previous Rx's Medication Instructions Recorded Folic Acid 1 mg PO DAILY #30 tablet 07/16/16 Multivitamins, Thera [Multivitamin 1 tab PO DAILY #30 tablet 07/16/16 (formulary)] Thiamine [Vitamin B-1] 100 mg PO DAILY #30 tablet 07/16/16 Lisinopril [Zestril] 10 mg PO DAILY #30 tab 07/25/16 Mag Hydrox/Al Hydrox/Simeth 5 ml PO TID #200 ml 07/25/16 [Maalox] Omeprazole [PriLOSEC] 40 mg PO AC-BRKFST #30 capsule. 07/25/16 Polyethylene Glycol 3350 [Miralax] 17 gm PO DAILY PRN #30 packet 07/25/16 Insulin Glargine [Lantus] 20 unit SQ W/BRKFST #0 08/08/16 LORazepam [Ativan] 0.5 mg PO TID #20 tab 08/08/16 Allergies Allergy/AdvReac Type Severity Reaction Status Date / Time No Known Allergies Allergy Verified 08/11/16 10:48 Review of Systems ROS Statement: Those systems with pertinent positive or pertinent negative responses have been documented in the HPI. ROS Other: All systems not noted in ROS Statement are negative. Past Medical History Past Medical History: Heart Failure, Diabetes Mellitus, Hypertension, Pneumonia , Renal Disease, Rheumatoid Arthritis (RA), Skin Disorder Additional Past Medical History / Comment(s): Pt recently admitted to [facility] on with acute DKA, metabolic encephalopathy, hyperkalemia and hyponatremia. Other HX: IDDM type I poorly controlled, DKAs, diabetic gastroparesis, bilateral feet/hands peripheral neuropathy, blood behind both eyes, peptic ulcer disease/duodenal ulcer/gastritis with erosions, previous hospitalization for pulmonary edema and bilateral pleural effusion and subsequent evaluation showed a preserved LV function with an ejection fraction of around 50%, CKD stage III, normocytic chronic anemia, rheumatoid arthritis, DJD, chronic back pain, osteoarthritis-generalized, eczema, psoriasis, ear infections, hx of narcotic abuse, cocaine abuse and alcohol abuse. History of Any Multi-Drug Resistant Organisms: MRSA Date of last positivie culture/infection: 02/25/08 MDRO Source:: Neck Past Surgical History: Adenoidectomy, Tonsillectomy Additional Past Surgical History / Comment(s): colonoscopy 2008, EGD, lt great toe amp, and part of 2nd toe. Past Anesthesia/Blood Transfusion Reactions: No Reported Reaction Past Psychological History: No Psychological Hx Reported Additional Psychological History / Comment(s): Pt staying with friends in an apartment. Smoking Status: Never smoker Past Alcohol Use History: None Reported Additional Past Alcohol Use History / Comment(s): PT has STATED in PMH that he DRINKS OCC BUT LESS THAN 14 PER WEEK Past Drug Use History: None Reported Additional Drug Use History / Comment(s): PT PMH stated pt DENIES ANY DRUG USE IN AT LEAST 7-8 YEARS. 06/18/16 toxicology + for cocaine. 06/29/16 toxicology + or cocaine. 07/06/16 toxicology + for cocaine. - Past Family History Father Family Medical History: Diabetes Mellitus, Hypertension Additional Family Medical History / Comment(s): father Mother Additional Family Medical History / Comment(s): pyschiatric issues. General Exam General appearance: alert, in no apparent distress Head exam: Present: atraumatic, normocephalic, normal inspection Eye exam: Present: normal appearance, PERRL, EOMI. Absent: scleral icterus, conjunctival injection, periorbital swelling ENT exam: Present: normal exam, mucous membranes moist Neck exam: Present: normal inspection. Absent: tenderness, meningismus, lymphadenopathy Respiratory exam: Present: normal lung sounds bilaterally. Absent: respiratory distress, wheezes, rales, rhonchi, stridor Cardiovascular Exam: Present: regular rate, normal rhythm, normal heart sounds. Absent: systolic murmur, diastolic murmur, rubs, gallop, clicks GI/Abdominal exam: Present: soft, normal bowel sounds. Absent: distended, tenderness, guarding, rebound, rigid Extremities exam: Present: normal inspection, full ROM, normal capillary refill. Absent: tenderness, pedal edema, joint swelling, calf tenderness Back exam: Present: normal inspection Neurological exam: Present: alert, oriented X3, CN II-XII intact Psychiatric exam: Present: normal affect, normal mood Skin exam: Present: warm, dry, intact, normal color. Absent: rash Course Vital Signs 08/17/16 07:57 Temperature 97.3 F L Pulse Rate 114 H Respiratory 22 Rate Blood Pressure 165/73 O2 Sat by Pulse 100 Oximetry EKG Findings - EKG Comments: EKG Findings:: Twelve-lead EKG is obtained, interpreted by me showing ventricular rate 103 bpm, normal HI interval and QRS complex is, no ST elevation or depression, interpreted by me as sinus tachycardia. Medical Decision Making - Medical Decision Making Patient presents with hyperglycemia. He is in DKA. I ordered an IV regular insulin drip. I have ordered him IV bolus normal saline. He will be admitted to the ICU. - Lab Data Result diagrams: 08/17/16 08:35 08/17/16 08:35 Lab Results 08/17/16 08/17/16 08/17/16 Range/Units 08:08 08:35 08:35 WBC 17.4 H (3.8-10.6) k/uL RBC 3.51 L (4.30-5.90) m/uL Hgb 11.3 L (13.0-17.5) gm/dL Hct 38.8 L (39.0-53.0) % MCV 110.8 H D (80.0-100.0) fL MCH 32.3 (25.0-35.0) pg MCHC 29.1 L (31.0-37.0) g/dL RDW 14.8 (11.5-15.5) % Plt Count 344 (150-450) k/uL Neutrophils % 82 % Lymphocytes % 9 % Monocytes % 8 % Eosinophils % 0 % Basophils % 0 % Neutrophils # 14.3 H (1.3-7.7) k/uL Lymphocytes # 1.5 (1.0-4.8) k/uL Monocytes # 1.3 H (0-1.0) k/uL Eosinophils # 0.0 (0-0.7) k/uL Basophils # 0.0 (0-0.2) k/uL Hypochromasia Marked Poikilocytosis (manual Present Anisocytosis (manual) Present Macrocytosis Marked Crenated Cell Present PT (9.0-12.0) sec INR (<1.1) APTT (22.0-30.0) sec Sodium (137-145) mmol/L Potassium (3.5-5.1) mmol/L Chloride (98-107) mmol/L Carbon Dioxide (22-30) mmol/L Anion Gap mmol/L BUN (9-20) mg/dL Creatinine (0.66-1.25) mg/dL Est GFR (MDRD) Af Amer (>60 ml/min/1.73 sqM) Est GFR (MDRD) Non-Af (>60 ml/min/1.73 sqM) Glucose (74-99) mg/dL POC Glucose (mg/dL) >600 H (75-99) mg/dL POC Glu Bandage Winding Machine Operator ID Ellen Lainez Calcium (8.4-10.2) mg/dL Total Bilirubin (0.2-1.3) mg/dL AST (17-59) U/L ALT (21-72) U/L Alkaline Phosphatase (38-126) U/L Ammonia 36 H (<30) umol/L Troponin I (0.000-0.034) ng/mL Total Protein (6.3-8.2) g/dL Albumin (3.5-5.0) g/dL Urine Color Urine Appearance (Clear) Urine pH (5.0-8.0) Ur Specific [place] (1.001-1.035) Urine Protein (Negative) Urine Glucose (UA) (Negative) Urine Blood (Negative) Urine Nitrite (Negative) Urine Bilirubin (Negative) Urine Urobilinogen (<2.0) mg/dL Ur Leukocyte Esterase (Negative) Urine Opiates Screen (NotDetected) Ur Oxycodone Screen (NotDetected) Urine Methadone Screen (NotDetected) Ur Propoxyphene Screen (NotDetected) Ur Barbiturates Screen (NotDetected) U Tricyclic Antidepress (NotDetected) Ur Phencyclidine Scrn (NotDetected) Ur Amphetamines Screen (NotDetected) U Methamphetamines Scrn (NotDetected) U Benzodiazepines Scrn (NotDetected) Urine Cocaine Screen (NotDetected) U Marijuana (THC) Screen (NotDetected) 08/17/16 08/17/16 08/17/16 Range/Units 08:35 08:35 08:35 WBC (3.8-10.6) k/uL RBC (4.30-5.90) m/uL Hgb (13.0-17.5) gm/dL Hct (39.0-53.0) % MCV (80.0-100.0) fL MCH (25.0-35.0) pg MCHC (31.0-37.0) g/dL RDW (11.5-15.5) % Plt Count (150-450) k/uL Neutrophils % % Lymphocytes % % Monocytes % % Eosinophils % % Basophils % % Neutrophils # (1.3-7.7) k/uL Lymphocytes # (1.0-4.8) k/uL Monocytes # (0-1.0) k/uL Eosinophils # (0-0.7) k/uL Basophils # (0-0.2) k/uL Hypochromasia Poikilocytosis (manual Anisocytosis (manual) Macrocytosis Crenated Cell PT 10.8 (9.0-12.0) sec INR 1.1 (<1.1) APTT 22.3 (22.0-30.0) sec Sodium 137 (137-145) mmol/L Potassium 6.5 H* (3.5-5.1) mmol/L Chloride 99 (98-107) mmol/L Carbon Dioxide <5 L* (22-30) mmol/L Anion Gap 33 mmol/L BUN 32 H (9-20) mg/dL Creatinine 1.90 H (0.66-1.25) mg/dL Est GFR (MDRD) Af Amer 45 (>60 ml/min/1.73 sqM) Est GFR (MDRD) Non-Af 37 (>60 ml/min/1.73 sqM) Glucose 674 H* (74-99) mg/dL POC Glucose (mg/dL) (75-99) mg/dL POC Glu Bandage Winding Machine Operator ID Calcium 9.8 (8.4-10.2) mg/dL Total Bilirubin 0.6 (0.2-1.3) mg/dL AST 30 (17-59) U/L ALT 77 H (21-72) U/L Alkaline Phosphatase 146 H (38-126) U/L Ammonia (<30) umol/L Troponin I <0.012 (0.000-0.034) ng/mL Total Protein 6.8 (6.3-8.2) g/dL Albumin 4.2 (3.5-5.0) g/dL Urine Color Urine Appearance (Clear) Urine pH (5.0-8.0) Ur Specific [place] (1.001-1.035) Urine Protein (Negative) Urine Glucose (UA) (Negative) Urine Blood (Negative) Urine Nitrite (Negative) Urine Bilirubin (Negative) Urine Urobilinogen (<2.0) mg/dL Ur Leukocyte Esterase (Negative) Urine Opiates Screen (NotDetected) Ur Oxycodone Screen (NotDetected) Urine Methadone Screen (NotDetected) Ur Propoxyphene Screen (NotDetected) Ur Barbiturates Screen (NotDetected) U Tricyclic Antidepress (NotDetected) Ur Phencyclidine Scrn (NotDetected) Ur Amphetamines Screen (NotDetected) U Methamphetamines Scrn (NotDetected) U Benzodiazepines Scrn (NotDetected) Urine Cocaine Screen (NotDetected) U Marijuana (THC) Screen (NotDetected) 08/17/16 Range/Units 09:01 WBC (3.8-10.6) k/uL RBC (4.30-5.90) m/uL Hgb (13.0-17.5) gm/dL Hct (39.0-53.0) % MCV (80.0-100.0) fL MCH (25.0-35.0) pg MCHC (31.0-37.0) g/dL RDW (11.5-15.5) % Plt Count (150-450) k/uL Neutrophils % % Lymphocytes % % Monocytes % % Eosinophils % % Basophils % % Neutrophils # (1.3-7.7) k/uL Lymphocytes # (1.0-4.8) k/uL Monocytes # (0-1.0) k/uL Eosinophils # (0-0.7) k/uL Basophils # (0-0.2) k/uL Hypochromasia Poikilocytosis (manual Anisocytosis (manual) Macrocytosis Crenated Cell PT (9.0-12.0) sec INR (<1.1) APTT (22.0-30.0) sec Sodium (137-145) mmol/L Potassium (3.5-5.1) mmol/L Chloride (98-107) mmol/L Carbon Dioxide (22-30) mmol/L Anion Gap mmol/L BUN (9-20) mg/dL Creatinine (0.66-1.25) mg/dL Est GFR (MDRD) Af Amer (>60 ml/min/1.73 sqM) Est GFR (MDRD) Non-Af (>60 ml/min/1.73 sqM) Glucose (74-99) mg/dL POC Glucose (mg/dL) (75-99) mg/dL POC Glu Bandage Winding Machine Operator ID Calcium (8.4-10.2) mg/dL Total Bilirubin (0.2-1.3) mg/dL AST (17-59) U/L ALT (21-72) U/L Alkaline Phosphatase (38-126) U/L Ammonia (<30) umol/L Troponin I (0.000-0.034) ng/mL Total Protein (6.3-8.2) g/dL Albumin (3.5-5.0) g/dL Urine Color Colorless Urine Appearance Clear (Clear) Urine pH 5.0 (5.0-8.0) Ur Specific [place] 1.010 (1.001-1.035) Urine Protein Negative (Negative) Urine Glucose (UA) 4+ H (Negative) Urine Blood Negative (Negative) Urine Nitrite Negative (Negative) Urine Bilirubin Negative (Negative) Urine Urobilinogen <2.0 (<2.0) mg/dL Ur Leukocyte Esterase Negative (Negative) Urine Opiates Screen Not Detected (NotDetected) Ur Oxycodone Screen Not Detected (NotDetected) Urine Methadone Screen Not Detected (NotDetected) Ur Propoxyphene Screen Not Detected (NotDetected) Ur Barbiturates Screen Not Detected (NotDetected) U Tricyclic Antidepress Not Detected (NotDetected) Ur Phencyclidine Scrn Not Detected (NotDetected) Ur Amphetamines Screen Not Detected (NotDetected) U Methamphetamines Scrn Not Detected (NotDetected) U Benzodiazepines Scrn Not Detected (NotDetected) Urine Cocaine Screen Detected H (NotDetected) U Marijuana (THC) Screen Not Detected (NotDetected) Critical Care Time Critical Care Time: Yes Total Critical Care Time: 35 Disposition Clinical Impression: DKA (diabetic ketoacidoses) Disposition: ADMITTED IP TO THIS [facility] Condition: Critical Time of Disposition: 09:46
--- NOTE | 2016-08-17 09:49 | CT ---
EXAMINATION TYPE: CT brain wo con DATE OF EXAM: 08/17/2016 9:42 AM COMPARISON: Previous study dated 11/03/2015 HISTORY: Minimally responsive CT DLP: 1054.2 mGycm Automated exposure control for dose reduction was used. FINDINGS: Central structures are midline. There is no evidence of hydrocephalus. No acute focal lesio n, mass effect or midline shift is seen. I do not see evidence of intracranial blood. Visualized portions of the paranasal sinuses and mastoids are clear. No depressed skull fracture is s een. IMPRESSION: NORMAL CT SCAN OF THE BRAIN.
[2016-08-17 09:50] LABS: Ketones,Urine 4+ (Negative)
[2016-08-17] MEDS ORDERED: POLYETHYLENE GLYCOL 3350 17 GM POWD.PACK PO PRN (09:51)
--- NOTE | 2016-08-17 09:58 | XR ---
EXAMINATION TYPE: XR chest 2V DATE OF EXAM: 08/17/2016 9:53 AM HISTORY: altered mental status. REFERENCE: Previous study dated 07/24/2016. FINDINGS: The heart is mildly enlarged. The lungs are clear. Pleural spaces are clear. There are mult iple rib fractures present bilaterally. IMPRESSION: MILD CARDIOMEGALY.
[2016-08-17 10:09] LABS: Glucose,Whole Blood >600 mg/dL (75-99)
[2016-08-17 11:04] LABS: Glucose,Whole Blood 555 mg/dL (75-99)
[2016-08-17] MEDS: THIAMINE 100 MG TAB PO SCH (11:08)
[2016-08-17 11:40] VITALS: BMI 17.9
[2016-08-17] MEDS ORDERED: MULTIVITAMINS, THERA 1 EACH TAB PO SCH (12:00)
[2016-08-17] MEDS ORDERED: FOLIC ACID 1 MG TAB PO SCH (12:00)
[2016-08-17 12:22] LABS: Glucose,Whole Blood 370 mg/dL (75-99)
[2016-08-17 12:56] LABS: Glucose,Whole Blood 285 mg/dL (75-99)
[2016-08-17] MEDS: METOCLOPRAMIDE 10 MG TAB PO SCH ×3 (12:56→20:59)
--- NOTE | 2016-08-17 13:02 | P.CNPUL ---
History of Present Illness Consult date: 08/17/16 Requesting physician: Saniya Lomas Reason for consult: other (Critical care management) Chief complaint: Generalized weakness History of present illness: This is a 56-year-old gentleman who has a history of diabetes mellitus, peripheral neuropathy with amputations of toes hypertension, history esophageal reflux disease, illicit drug abuse. He presented here to the emergency room with complaints of generalized weakness and high blood glucose. He is brought in by EMS. He was found to be in diabetic ketoacidosis. Presenting blood glucose of 674, urinalysis with 4+ glucose, 4+ ketones, anion gap 33, potassium 6.5. His urine drug screen was positive for cocaine as well. He is seen today in consultation in the intensive care unit. He is more awake and alert. He is fairly cooperative. He is maintaining good O2 saturations up to 100% on room air. He is afebrile. His computed tomography scan of the brain was normal. His chest x-ray revealed mild cardiomegaly otherwise no acute cardiopulmonary process. The DKA protocol has been initiated. His recent glucose 370. Currently on insulin drip at 12 units per hour. Review of Systems ROS unobtainable: due to mental status Past Medical History Past Medical History: Heart Failure, Diabetes Mellitus, Hypertension, Pneumonia , Renal Disease, Rheumatoid Arthritis (RA), Skin Disorder Additional Past Medical History / Comment(s): Pt recently admitted to [facility] on with acute DKA, metabolic encephalopathy, hyperkalemia and hyponatremia. Other HX: IDDM type I poorly controlled, DKAs, diabetic gastroparesis, bilateral feet/hands peripheral neuropathy, blood behind both eyes, peptic ulcer disease/duodenal ulcer/gastritis with erosions, previous hospitalization for pulmonary edema and bilateral pleural effusion and subsequent evaluation showed a preserved LV function with an ejection fraction of around 50%, CKD stage III, normocytic chronic anemia, rheumatoid arthritis, DJD, chronic back pain, osteoarthritis-generalized, eczema, psoriasis, ear infections, hx of narcotic abuse, cocaine abuse and alcohol abuse. History of Any Multi-Drug Resistant Organisms: MRSA Date of last positivie culture/infection: 02/25/08 MDRO Source:: Neck Past Surgical History: Adenoidectomy, Tonsillectomy Additional Past Surgical History / Comment(s): colonoscopy 2008, EGD, lt great toe amp, and part of 2nd toe. Past Anesthesia/Blood Transfusion Reactions: No Reported Reaction Past Psychological History: No Psychological Hx Reported Additional Psychological History / Comment(s): Pt staying with friends in an apartment. Smoking Status: Never smoker Past Alcohol Use History: None Reported Additional Past Alcohol Use History / Comment(s): PT has STATED in PMH that he DRINKS OCC BUT LESS THAN 14 PER WEEK Past Drug Use History: None Reported Additional Drug Use History / Comment(s): PT PMH stated pt DENIES ANY DRUG USE IN AT LEAST 7-8 YEARS. 06/18/16 toxicology + for cocaine. 06/29/16 toxicology + or cocaine. 07/06/16 toxicology + for cocaine. toxicology + cocaine 08/17/16 - Past Family History Father Family Medical History: Diabetes Mellitus, Hypertension Additional Family Medical History / Comment(s): father Mother Additional Family Medical History / Comment(s): pyschiatric issues. Medications and Allergies Home Medications Medication Instructions Recorded Confirmed Type Famotidine [Pepcid] 40 mg PO HS 07/24/16 08/17/16 History Metoclopramide [Reglan] 10 mg PO ACHS 07/24/16 08/17/16 History Gabapentin 600 mg PO TID 08/05/16 08/17/16 History Insulin Aspart [NovoLOG] See Protocol SQ AC-TID 08/05/16 08/17/16 History Metoprolol Tartrate [Lopressor] 25 mg PO BID 08/05/16 08/17/16 History traZODone HCL [Desyrel] 200 mg PO HS 08/05/16 08/17/16 History Allergies Allergy/AdvReac Type Severity Reaction Status Date / Time No Known Allergies Allergy Verified 08/17/16 10:17 Physical Exam Vitals: Vital Signs Temp Pulse Resp BP Pulse Ox 08/17/16 12:00 81 20 128/63 99 08/17/16 11:30 86 19 124/69 100 08/17/16 11:00 87 12 124/69 100 08/17/16 10:37 93 08/17/16 10:23 98.0 F 24 08/17/16 10:21 98.4 F 92 18 150/70 100 Intake and Output 08/16/16 08/17/16 08/17/16 22:59 06:59 14:59 Intake Total 1232.488 Output Total 750 Balance 482.488 Intake: IV 200 0.9 Nacl 200 Intake, IV Titration 1032.488 Amount Insulin Regular 100 unit 32.488 In Sodium Chloride 0.9% 100 ml @ 8 UNIT/HR 8.08 mls/hr IV .[id number] ONE Rx #:[id number] Sodium Chloride 0.9% 1, 1000 000 ml @ 999 mls/hr IV . Q1H1M ONE Rx#:[id number] Output: Urine 750 Other: Weight 65 kg Patient Weight 08/18/16 06:59 Weight 65 kg GENERAL EXAM: Alert, active, comfortable in no apparent distress. HEAD: Normocephalic. EYES: Normal reaction of pupils, equal size. NOSE: Clear with pink turbinates. THROAT: No erythema or exudates. NECK: No masses, no JVD. CHEST: No chest wall deformity. LUNGS: Equal air entry with no crackles, wheeze, rhonchi or dullness. CVS: S1 and S2 normal with no audible mumurs, regular rhythm. ABDOMEN: No hepatosplenomegaly, normal bowel sounds, no guarding or rigidity. Extremities: No significant peripheral edema. Amputated toes on the left. Peripheral pulses are intact. Results - Laboratory Findings CBC and BMP: 08/17/16 08:35 08/17/16 08:35 PT/INR, D-dimer PT 10.8 sec (9.0-12.0) 08/17/16 08:35 INR 1.1 (<1.1) 08/17/16 08:35 Abnormal lab findings: Abnormal Labs 08/17/16 08/17/16 08/17/16 10:07 11:02 12:20 POC Glucose (mg/dL) >600 H 555 H 370 H - Diagnostic Findings Chest x-ray: image reviewed Assessment and Plan Plan: Impression: #1 Acute diabetic ketoacidosis in a patient with a history of noncompliance and multiple admissions for the same. #2 Diabetes mellitus. #3 History of illicit drug use with positive drug screen for cocaine. #4 Hypertension. #5 Diabetic gastroparesis. #6 Diabetic neuropathy. #7 Peripheral vascular disease status post appendectomy dictation some toes. #8 Chronic kidney disease, stage III. #9 Hyperkalemia Plan: The patient was seen and evaluated by Dr. Obrien. His chest x-ray and labs were reviewed. We'll continue with the DKA protocol and monitor him here closely in the intensive care unit until recovered. We'll continue with his current medications. We'll continue to follow. Time with Patient: Greater than 30
[2016-08-17 13:37] LABS: Calcium 9.3 mg/dL (8.4-10.2); Phosphorous 2.7 mg/dL (2.5-4.5); Potassium 5.5 mmol/L (3.5-5.1)
[2016-08-17 14:09] LABS: Glucose,Whole Blood 294 mg/dL (75-99)
[2016-08-17] MEDS: DEXTROSE 5%-0.45% NACL 1,000 ML IV SCH ×2 (14:42→21:00)
[2016-08-17 15:14] LABS: Glucose,Whole Blood 228 mg/dL (75-99)
[2016-08-17 16:02] LABS: Glucose,Whole Blood 173 mg/dL (75-99)
[2016-08-17] MEDS: MAG HYDROX/AL HYDROX/SIMETH 30 ML CUP PO SCH ×2 (16:04→21:00)
--- NOTE | 2016-08-17 16:41 | HP ---
DATE OF ADMISSION: The patient is a 56-year-old well known to everyone in the hospital because of his multiple admissions, highly noncompliant with medications and multiple drug abuse. Came in again with altered mental status and generalized weakness and patient was found to be in DKA. The patient is on DKA protocol. Patient is admitted in the intensive care unit and patient is on q.4 hourly electrolyte monitoring. The patient is complaining of abdominal pain. Patient is alert and oriented x3. Mental status is at his baseline. Patient although faked some symptoms. REVIEW OF SYSTEMS: CONSTITUTIONAL: No fever, no malaise, no fatigue. HEENT: No recent visual problems or hearing problems. Denied any sore throat. CARDIOVASCULAR: No chest pain, orthopnea, PND, no palpitations, no syncope. PULMONARY: No shortness of breath, no cough, no hemoptysis. GASTROINTESTINAL: No diarrhea, no nausea, no vomiting, no abdominal pain. Normoactive bowel sounds. NEUROLOGICAL: No headaches, no weakness, no numbness. HEMATOLOGICAL: Denies any bleeding or petechiae. GENITOURINARY: Denies any burning micturition, frequency, or urgency. MUSCULOSKELETAL/RHEUMATOLOGICAL: Denies any joint pain, swelling, or any muscle pain. ENDOCRINE: Denies any polyuria or polydipsia. The rest of the 14 point review of systems is negative. PAST MEDICAL HISTORY: Significant for diabetes mellitus, multiple admissions for DKA, hypertension, gastroesophageal reflux disease, multiple drug abuse, MRSA in the past. SOCIAL HISTORY: Denied any smoking, alcohol abuse or any drug abuse. FAMILY HISTORY: Significant for diabetes mellitus and hypertension. Mother has psychiatric issues. PHYSICAL EXAMINATION: VITAL SIGNS: Temperature 98.0, pulse of 86, respiratory rate 19, blood pressure is 128/63, saturating at 100% on room air. GENERAL: The patient is alert and oriented x3, not in any acute distress. Well developed, well nourished. HEENT: Pupils are round and equally reacting to light. EOMI. No scleral icterus. No conjunctival pallor. Normocephalic, atraumatic. No pharyngeal erythema. No thyromegaly. CARDIOVASCULAR: S1 and S2 present. No murmurs, rubs, or gallops. PULMONARY: Chest is clear to auscultation, no wheezing or crackles. ABDOMEN: Soft, nontender, nondistended, normoactive bowel sounds. No palpable organomegaly. MUSCULOSKELETAL: No joint swelling or deformity. EXTREMITIES: No cyanosis, clubbing, or pedal edema. NEUROLOGICAL: Gross neurological examination did not reveal any focal deficits. SKIN: No rashes. LABORATORY DATA: CBC, CMP are abnormal for elevated WBC count of 17,400, hemoglobin of 11.3, MCV is 110.8. Potassium of 5.5, which is coming down. Patient's potassium was 6.5 secondary DKA. Sodium is 143 now, chloride is elevated, bicarbonate of 11 cam up from less than 5. Anion gap is 21 now came down from 33. BUN 32, remained at 32. Creatinine came down from 1.9 to 1.6. blood glucose is around 300. AST and ALT are minimally elevated. Urine drug screen is positive for cocaine. Brain and chest x-ray. Chest x-ray showed mild cardiomegaly. ASSESSMENT AND PLAN: 1. Diabetic ketoacidosis . Patient is highly noncompliant with medication. Patient is on IV insulin and IV normal saline. We will follow the protocol. Once his blood sugars come down, patient will be switched to D5 normal saline with IV insulin until anion gap resolves. Once anion gap resolves, patient will be subcutaneous insulin. Will be started on diet and patient will be switched to lactated Ringer's at the time because of hyperchloremia. Patient may not require potassium supplementation as his potassium is high on admission and it continues to be high now. 2. Diabetes mellitus type 1. 3. Multiple drug abuse. 4. Hypertension. 5. Gastritis. 6. Peripheral vascular disease. 7. Hyperkalemia secondary to diabetic ketoacidosis. PLAN: As mentioned above. Patient is highly noncompliant with any kind of recommendations and continues to use nonprescription drugs at home.
[2016-08-17 16:57] LABS: Glucose,Whole Blood 145 mg/dL (75-99)
[2016-08-17 18:20] LABS: Anion Gap 14 mmol/L; Blood Urea Nitrogen 29 mg/dL (9-20); Calcium 9.3 mg/dL (8.4-10.2); Carbon Dioxide 16 mmol/L (22-30); Chloride 116 mmol/L (98-107); Glucose 118 mg/dL (74-99); Non-African American GFR(MDRD) 56 (>60 ml/min/1.73 sqM); Phosphorous 1.7 mg/dL (2.5-4.5); Sodium 146 mmol/L (137-145)
[2016-08-17 18:30] LABS: Potassium 4.8 mmol/L (3.5-5.1)
[2016-08-17 18:34] LABS: Glucose,Whole Blood 97 mg/dL (75-99)
[2016-08-17 19:04] LABS: Glucose,Whole Blood 82 mg/dL (75-99)
[2016-08-17] MEDS ORDERED: Phosphorus Replacement Protoco 1 EACH MISC MISCELLANE PRN (19:31)
[2016-08-17 20:21] LABS: Glucose,Whole Blood 91 mg/dL (75-99)
[2016-08-17] MEDS: SODIUM PHOSPHATE 10 MMOL in SODIUM CHLORIDE 0.9% 250 ML IVPB SCH ×2 (20:28→22:36)
[2016-08-17] MEDS: DOCUSATE 100 MG CAP PO SCH (20:59)
[2016-08-17] MEDS ORDERED: traZODone HCL 100 MG TAB PO SCH (21:00)
[2016-08-17] MEDS: FAMOTIDINE 20 MG TAB PO SCH (21:00)
[2016-08-17] MEDS: METOPROLOL TARTRATE 25 MG TAB PO SCH (21:00)
[2016-08-17 21:07] LABS: Glucose,Whole Blood 100 mg/dL (75-99)
[2016-08-17 22:11] LABS: Glucose,Whole Blood 138 mg/dL (75-99)
[2016-08-17 23:03] LABS: Anion Gap 14 mmol/L; Blood Urea Nitrogen 24 mg/dL (9-20); Carbon Dioxide 19 mmol/L (22-30); Chloride 109 mmol/L (98-107); Glucose 155 mg/dL (74-99); Non-African American GFR(MDRD) >60 (>60 ml/min/1.73 sqM); Phosphorous 3.3 mg/dL (2.5-4.5); Potassium 4.5 mmol/L (3.5-5.1); Sodium 142 mmol/L (137-145)
[2016-08-17 23:05] LABS: Glucose,Whole Blood 161 mg/dL (75-99)
[2016-08-18 00:17] LABS: Glucose,Whole Blood 144 mg/dL (75-99)
[2016-08-18 01:20] LABS: Glucose,Whole Blood 136 mg/dL (75-99)
[2016-08-18 02:10] LABS: Glucose,Whole Blood 139 mg/dL (75-99)
[2016-08-18 03:16] LABS: Glucose,Whole Blood 137 mg/dL (75-99)
[2016-08-18 04:11] LABS: Glucose,Whole Blood 117 mg/dL (75-99)
[2016-08-18 04:31] LABS: Basophils # (A) 0.1 k/uL (0-0.2); Basophils % (A) 1 %; CH 31.1; CHCM 31.9; Eosinophils # (A) 0.1 k/uL (0-0.7); Eosinophils % (A) 1 %; HCT 35.7 % (39.0-53.0); HDW 2.62; HGB 11.2 gm/dL (13.0-17.5); Luc # (Auto) 0.18; Luc % (Auto) 2; Lymphocytes # (A) 1.5 k/uL (1.0-4.8); Lymphocytes % (A) 16 %; MCH 30.9 pg (25.0-35.0); MCHC 31.4 g/dL (31.0-37.0); Mean Platelet Volume 7.1; Monocytes # (A) 0.5 k/uL (0-1.0); Monocytes % (A) 5 %; Neutrophils # (A) 7.2 k/uL (1.3-7.7); Neutrophils % (A) 75 %; RBC 3.63 m/uL (4.30-5.90); RDW 14.4 % (11.5-15.5); WBC 9.6 k/uL (3.8-10.6); WBC (Perox) 10.32
[2016-08-18 04:35] LABS: MCV 98.3 fL (80.0-100.0)
[2016-08-18] MEDS: DEXTROSE 5%-0.45% NACL 1,000 ML IV SCH ×2 (04:48→10:47)
[2016-08-18 04:49] LABS: ALT 58 U/L (21-72); AST 28 U/L (17-59); Alkaline Phosphatase 101 U/L (38-126); Anion Gap 8 mmol/L; Blood Urea Nitrogen 22 mg/dL (9-20); Calcium 8.8 mg/dL (8.4-10.2); Carbon Dioxide 24 mmol/L (22-30); Chloride 109 mmol/L (98-107); Glucose 132 mg/dL (74-99); Magnesium 1.9 mg/dL (1.6-2.3); Non-African American GFR(MDRD) >60 (>60 ml/min/1.73 sqM); Phosphorous 2.6 mg/dL (2.5-4.5); Sodium 141 mmol/L (137-145); Total Bilirubin 0.5 mg/dL (0.2-1.3)
[2016-08-18] MEDS ORDERED: INSULIN NPH 300 UNIT/3 ML VIAL SQ ONE (05:48)
[2016-08-18 06:35] LABS: Glucose,Whole Blood 275 mg/dL (75-99)
[2016-08-18] MEDS: INSULIN LISPRO (humaLOG) 300 UNIT/3 ML VIAL SQ SCH ×4 (06:36→14:10)
[2016-08-18] MEDS ORDERED: LACTATED RINGERS 1,000 ML IV SCH (07:00)
[2016-08-18] MEDS ORDERED: INSULIN GLARGINE 100 UNIT/ML 10 ML VIAL SQ SCH (07:30)
[2016-08-18] MEDS ORDERED: LISINOPRIL 10 MG TAB PO SCH (09:00)
--- NOTE | 2016-08-18 09:51 | P.PN ---
Subjective Progress note dated 08/18/2016 This is a 56-year-old black male with a history of diabetes. He has multiple admissions to the unit for diabetic ketoacidosis. Was admitted yesterday for the same reason. He is noncompliant with his medications. Doing relatively well today. The patient is currently not receiving any supplemental oxygen. He is on and LR IV at 150 an hour. Insulin drip is been turned off. Seems be relatively comfortable and I told the nurse she could go to the general medical floor. Does not need telemetry. No major complaints or issues today. Objective - Vital Signs Vital signs: Vital Signs Temp 98.5 F 08/18/16 04:00 Pulse 72 08/18/16 07:00 Resp 12 08/18/16 07:00 BP 105/56 08/18/16 07:00 Pulse Ox 97 08/18/16 07:00 Intake & Output 08/17/16 08/18/16 08/18/16 18:59 06:59 18:59 Intake Total 2350.899 1950.101 Output Total 2350 926 Balance 0.899 1024.101 Weight 65 kg 64.2 kg Intake: IV 1250 1950 0.9 Nacl 800 D5 1/2 NS 450 1950 Intake, IV Titration 1100.899 0.101 Amount Insulin Regular 100 unit 100.899 0.101 In Sodium Chloride 0.9% 100 ml @ 8 UNIT/HR 8.08 mls/hr IV .[id number] ONE Rx #:[id number] Sodium Chloride 0.9% 1, 1000 000 ml @ 999 mls/hr IV . Q1H1M ONE Rx#:[id number] Output: Urine 2350 926 Other: Voiding Method Indwelling Catheter Indwelling Catheter - Exam No acute distress, oriented 3. HEENT examination is grossly unremarkable. Mucous membranes are moist. No oral lesions. Neck supple. Full range of motion. No adenopathy. Cardiovascular examination reveals regular rhythm rate. S1-S2 normal. Lungs clear breath sounds equal. Abdomen soft bowel sounds are heard Extremities are intact. - Labs CBC & Chem 7: 08/18/16 04:03 08/18/16 04:03 Labs: Abnormal Lab Results - Last 24 Hours (Table) 08/17/16 08/17/16 08/17/16 Range/Units 10:07 11:02 12:20 RBC (4.30-5.90) m/uL Hgb (13.0-17.5) gm/dL Hct (39.0-53.0) % Sodium (137-145) mmol/L Potassium (3.5-5.1) mmol/L Chloride (98-107) mmol/L Carbon Dioxide (22-30) mmol/L BUN (9-20) mg/dL Creatinine (0.66-1.25) mg/dL Glucose (74-99) mg/dL POC Glucose (mg/dL) >600 H 555 H 370 H (75-99) mg/dL Phosphorus (2.5-4.5) mg/dL Total Protein (6.3-8.2) g/dL Albumin (3.5-5.0) g/dL 08/17/16 08/17/16 08/17/16 Range/Units 12:49 12:54 14:07 RBC (4.30-5.90) m/uL Hgb (13.0-17.5) gm/dL Hct (39.0-53.0) % Sodium (137-145) mmol/L Potassium 5.5 H (3.5-5.1) mmol/L Chloride 111 H (98-107) mmol/L Carbon Dioxide 11 L (22-30) mmol/L BUN 32 H (9-20) mg/dL Creatinine 1.61 H (0.66-1.25) mg/dL Glucose 309 H (74-99) mg/dL POC Glucose (mg/dL) 285 H 294 H (75-99) mg/dL Phosphorus (2.5-4.5) mg/dL Total Protein (6.3-8.2) g/dL Albumin (3.5-5.0) g/dL 08/17/16 08/17/16 08/17/16 Range/Units 15:12 16:01 16:55 RBC (4.30-5.90) m/uL Hgb (13.0-17.5) gm/dL Hct (39.0-53.0) % Sodium (137-145) mmol/L Potassium (3.5-5.1) mmol/L Chloride (98-107) mmol/L Carbon Dioxide (22-30) mmol/L BUN (9-20) mg/dL Creatinine (0.66-1.25) mg/dL Glucose (74-99) mg/dL POC Glucose (mg/dL) 228 H 173 H 145 H (75-99) mg/dL Phosphorus (2.5-4.5) mg/dL Total Protein (6.3-8.2) g/dL Albumin (3.5-5.0) g/dL 08/17/16 08/17/16 08/17/16 Range/Units 17:25 21:05 22:10 RBC (4.30-5.90) m/uL Hgb (13.0-17.5) gm/dL Hct (39.0-53.0) % Sodium 146 H (137-145) mmol/L Potassium (3.5-5.1) mmol/L Chloride 116 H (98-107) mmol/L Carbon Dioxide 16 L (22-30) mmol/L BUN 29 H (9-20) mg/dL Creatinine 1.32 H (0.66-1.25) mg/dL Glucose 118 H (74-99) mg/dL POC Glucose (mg/dL) 100 H 138 H (75-99) mg/dL Phosphorus 1.7 L (2.5-4.5) mg/dL Total Protein (6.3-8.2) g/dL Albumin (3.5-5.0) g/dL 08/17/16 08/17/16 08/18/16 Range/Units 22:14 23:04 00:15 RBC (4.30-5.90) m/uL Hgb (13.0-17.5) gm/dL Hct (39.0-53.0) % Sodium (137-145) mmol/L Potassium (3.5-5.1) mmol/L Chloride 109 H (98-107) mmol/L Carbon Dioxide 19 L (22-30) mmol/L BUN 24 H (9-20) mg/dL Creatinine (0.66-1.25) mg/dL Glucose 155 H (74-99) mg/dL POC Glucose (mg/dL) 161 H 144 H (75-99) mg/dL Phosphorus (2.5-4.5) mg/dL Total Protein (6.3-8.2) g/dL Albumin (3.5-5.0) g/dL 0408/18/16 08/18/16 Range/Units 01:18 02:08 03:13 RBC (4.30-5.90) m/uL Hgb (13.0-17.5) gm/dL Hct (39.0-53.0) % Sodium (137-145) mmol/L Potassium (3.5-5.1) mmol/L Chloride (98-107) mmol/L Carbon Dioxide (22-30) mmol/L BUN (9-20) mg/dL Creatinine (0.66-1.25) mg/dL Glucose (74-99) mg/dL POC Glucose (mg/dL) 136 H 139 H 137 H (75-99) mg/dL Phosphorus (2.5-4.5) mg/dL Total Protein (6.3-8.2) g/dL Albumin (3.5-5.0) g/dL 08/18/16 08/18/16 08/18/16 Range/Units 04:03 04:03 04:09 RBC 3.63 L (4.30-5.90) m/uL Hgb 11.2 L (13.0-17.5) gm/dL Hct 35.7 L (39.0-53.0) % Sodium (137-145) mmol/L Potassium (3.5-5.1) mmol/L Chloride 109 H (98-107) mmol/L Carbon Dioxide (22-30) mmol/L BUN 22 H (9-20) mg/dL Creatinine (0.66-1.25) mg/dL Glucose 132 H (74-99) mg/dL POC Glucose (mg/dL) 117 H (75-99) mg/dL Phosphorus (2.5-4.5) mg/dL Total Protein 6.0 L (6.3-8.2) g/dL Albumin 3.3 L (3.5-5.0) g/dL 08/18/16 Range/Units 06:33 RBC (4.30-5.90) m/uL Hgb (13.0-17.5) gm/dL Hct (39.0-53.0) % Sodium (137-145) mmol/L Potassium (3.5-5.1) mmol/L Chloride (98-107) mmol/L Carbon Dioxide (22-30) mmol/L BUN (9-20) mg/dL Creatinine (0.66-1.25) mg/dL Glucose (74-99) mg/dL POC Glucose (mg/dL) 275 H (75-99) mg/dL Phosphorus (2.5-4.5) mg/dL Total Protein (6.3-8.2) g/dL Albumin (3.5-5.0) g/dL Assessment and Plan (1) DKA (diabetic ketoacidoses) Status: Acute Plan: Plan dated 08/18/2016 The patient will be transferred out out to the general medical floor. He is not need any telemetry. We'll see as needed. Time with Patient: Less than 30
[2016-08-18 10:20] LABS: Glucose,Whole Blood 88 mg/dL (75-99)
[2016-08-18 10:35] VITALS: TEMP 97.8
[2016-08-18] MEDS: DOCUSATE 100 MG CAP PO SCH (10:41)
[2016-08-18] MEDS: FAMOTIDINE 20 MG TAB PO SCH (10:42)
[2016-08-18] MEDS: METOCLOPRAMIDE 10 MG TAB PO SCH (10:42)
[2016-08-18] MEDS: THIAMINE 100 MG TAB PO SCH (10:43)
[2016-08-18] MEDS: METOPROLOL TARTRATE 25 MG TAB PO SCH (10:43)
[2016-08-18] MEDS: MAG HYDROX/AL HYDROX/SIMETH 30 ML CUP PO SCH (10:46)
[2016-08-18 11:17] VITALS: BP 132/73; PULSE 74; RESP 25
[2016-08-18 12:05] LABS: Glucose,Whole Blood 75 mg/dL (75-99)
[2016-08-18 13:25] LABS: Anion Gap 7 mmol/L; Carbon Dioxide 21 mmol/L (22-30); Chloride 112 mmol/L (98-107); Non-African American GFR(MDRD) >60 (>60 ml/min/1.73 sqM); Sodium 140 mmol/L (137-145)
[2016-08-18 13:27] LABS: Blood Urea Nitrogen 19 mg/dL (9-20); Phosphorous 2.3 mg/dL (2.5-4.5); Potassium 4.5 mmol/L (3.5-5.1)
--- NOTE | 2016-08-18 21:08 | DS ---
DATE OF ADMISSION: 08/17/2016 DATE OF DISCHARGE: 08/18/2016 The patient is a 56-year-old admitted with ( ) secondary to DKA and multiple hospitalizations in the past. Patient is clinically doing well. DKA resolved. Patient will come back anyways. Patient has multiple admissions, highly noncompliant, does not follow any recommendations. Patient was seen and examined on the day of discharge. Vital signs are stable. PHYSICAL EXAMINATION: GENERAL: The patient is alert and oriented x3, not in any acute distress. Well developed, well nourished. HEENT: Pupils are round and equally reacting to light. EOMI. No scleral icterus. No conjunctival pallor. Normocephalic, atraumatic. No pharyngeal erythema. No thyromegaly. CARDIOVASCULAR: S1 and S2 present. No murmurs, rubs, or gallops. PULMONARY: Chest is clear to auscultation, no wheezing or crackles. ABDOMEN: Soft, nontender, nondistended, normoactive bowel sounds. No palpable organomegaly. MUSCULOSKELETAL: No joint swelling or deformity. EXTREMITIES: No cyanosis, clubbing, or pedal edema. NEUROLOGICAL: Gross neurological examination did not reveal any focal deficits. SKIN: No rashes. FINAL DIAGNOSES: 1. Diabetic ketoacidosis. 2. Type 1 diabetes mellitus. 3. Multiple drug abuse. 4. Multiple electrolytes abnormalities which improved. 5. Acute renal failure, which improved. 6. Gastritis. 7. Peripheral vascular disease. 8. Hyperkalemia. Patient will be discharged today. Please refer to my depart summary for further details of discharge. Medications at discharge. DISCHARGE DIET: Cardiac and ADA 1800 calorie diet. Follow up with Dr. Sofia Emanuel in one week. Patient never follows and comes to the hospital anyways. Spent greater than 35 minutes in total discharge process.
== END 2016-08-18 15:06 | disposition home or self-care (01) | DRG 638 ==
LOC: EC 07:55 → 6ICU 09:47 → 4MS4W 08-18 11:49
PROVIDERS: ADMIT Internal Medicine; ATTEND Internal Medicine
DX: E10.10 Type 1 diabetes mellitus with ketoacidosis without coma (principal); N17.9 Acute kidney failure, unspecified; K31.84 Gastroparesis; E10.42 Type 1 diabetes mellitus with diabetic polyneuropathy; N18.3 Chronic kidney disease, stage 3 (moderate); E87.5 Hyperkalemia; E87.8 Other disorders of electrolyte and fluid balance, not elsewhere classified; I13.10 Hypertensive heart and chronic kidney disease without heart failure, with stage 1 through stage 4 chronic kidney disease, or unspecified chronic kidney disease; E10.22 Type 1 diabetes mellitus with diabetic chronic kidney disease; E10.51 Type 1 diabetes mellitus with diabetic peripheral angiopathy without gangrene; K29.70 Gastritis, unspecified, without bleeding; E10.43 Type 1 diabetes mellitus with diabetic autonomic (poly)neuropathy; R00.0 Tachycardia, unspecified; D72.829 Elevated white blood cell count, unspecified; R53.1 Weakness; M19.90 Unspecified osteoarthritis, unspecified site; G89.29 Other chronic pain; M54.9 Dorsalgia, unspecified; D64.9 Anemia, unspecified; F19.10 Other psychoactive substance abuse, uncomplicated; M06.9 Rheumatoid arthritis, unspecified; R10.9 Unspecified abdominal pain; K21.9 Gastro-esophageal reflux disease without esophagitis; Z86.14 Personal history of Methicillin resistant Staphylococcus aureus infection; Z83.3 Family history of diabetes mellitus; Z82.49 Family history of ischemic heart disease and other diseases of the circulatory system; Z79.4 Long term (current) use of insulin; Z79.899 Other long term (current) drug therapy; Z91.14 Patient's other noncompliance with medication regimen; Z91.19 Patient's noncompliance with other medical treatment and regimen; Z71.3 Dietary counseling and surveillance; Z86.19 Personal history of other infectious and parasitic diseases; Z87.01 Personal history of pneumonia (recurrent); Z81.8 Family history of other mental and behavioral disorders; Z89.412 Acquired absence of left great toe; Z89.429 Acquired absence of other toe(s), unspecified side; Z87.11 Personal history of peptic ulcer disease; Z86.79 Personal history of other diseases of the circulatory system; Z87.2 Personal history of diseases of the skin and subcutaneous tissue
CPT/HCPCS: 36415; 70450; 71020; 80048; 80051; 80053; 80306; 81003; 82140; 82565; 83735; 84100; 84484; 84520; 85025; 85610; 85730; 93005; 96365; 96366; 96375; 96376; 99291

== ENCOUNTER 2016-08-30 09:29 | Inpatient (IN) | payer OTHER ==
[2016-08-30] MEDS ORDERED: ONDANSETRON 4 MG/2 ML VIAL IVP STA (09:32)
[2016-08-30] MEDS ORDERED: SODIUM CHLORIDE 0.9% 1,000 ML IV STA ×2 (09:32)
[2016-08-30] MEDS ORDERED: HYDROmorphone 1 MG/ML 1 ML SYRINGE IVP STA (09:32)
[2016-08-30] MEDS ORDERED: SODIUM CHLORIDE 0.9% 500 ML IV STA (09:32)
[2016-08-30] MEDS ORDERED: LORazepam 2 MG/ML SYRINGE IV STA (09:33)
[2016-08-30] MEDS ORDERED: PANTOPRAZOLE 40 MG/10 ML VIAL IVP STA (09:33)
[2016-08-30 09:34] LABS: Glucose,Whole Blood >600 mg/dL (75-99)
--- NOTE | 2016-08-30 09:43 | ED ---
General Adult HPI - General Stated complaint: high blood sugar Time Seen by Provider: 08/30/16 09:32 Source: EMS, RN notes reviewed, old records reviewed Mode of arrival: EMS Limitations: altered mental status - History of Present Illness Initial comments: This is a 36-year-old male well-known to this emergency room diabetes and noncompliance. Drug abuse. She coming and unable to give accurate history secondary to cold condition. Patient was found on the ground for an unknown down time per girlfriend, patient is transferred by EMS. Patient moaining - Related Data Home Medications Medication Instructions Recorded Confirmed Famotidine [Pepcid] 40 mg PO HS 07/24/16 08/30/16 Metoclopramide [Reglan] 10 mg PO ACHS PRN 07/24/16 08/30/16 Gabapentin 600 mg PO TID 08/05/16 08/30/16 Metoprolol Tartrate [Lopressor] 25 mg PO BID 08/05/16 08/30/16 traZODone HCL [Desyrel] 200 mg PO HS 08/05/16 08/30/16 Clotrimazole Cream [Lotrimin Cream] 1 applic TOPICAL BID PRN 08/30/16 08/30/16 INSULIN LISPRO (humaLOG) [humaLOG See Protocol SQ AC-TID 08/30/16 08/30/16 (formulary)] Ibuprofen [Motrin] 800 mg PO Q8HR PRN 08/30/16 08/30/16 Insulin Glargine [Lantus] 35 unit SQ W/BRKFST 08/30/16 08/30/16 Mag Hydrox/Al Hydrox/Simeth 5 ml PO TID PRN 08/30/16 08/30/16 [Maalox] amLODIPine BESYLATE [Norvasc] 5 mg PO DAILY 08/30/16 08/30/16 Previous Rx's Medication Instructions Recorded Folic Acid 1 mg PO DAILY #30 tablet 07/16/16 Multivitamins, Thera [Multivitamin 1 tab PO DAILY #30 tablet 07/16/16 (formulary)] Thiamine [Vitamin B-1] 100 mg PO DAILY #30 tablet 07/16/16 Lisinopril [Zestril] 10 mg PO DAILY #30 tab 07/25/16 Omeprazole [PriLOSEC] 40 mg PO AC-BRKFST #30 capsule. 07/25/16 Polyethylene Glycol 3350 [Miralax] 17 gm PO DAILY PRN #30 packet 07/25/16 Allergies Allergy/AdvReac Type Severity Reaction Status Date / Time No Known Allergies Allergy Verified 08/30/16 09:57 Review of Systems ROS Statement: Those systems with pertinent positive or pertinent negative responses have been documented in the HPI. ROS Other: All systems not noted in ROS Statement are negative. Past Medical History Past Medical History: Heart Failure, Diabetes Mellitus, Hypertension, Pneumonia , Renal Disease, Rheumatoid Arthritis (RA), Skin Disorder Additional Past Medical History / Comment(s): Pt recently admitted to [facility] on with acute DKA, metabolic encephalopathy, hyperkalemia and hyponatremia. Other HX: IDDM type I poorly controlled, DKAs, diabetic gastroparesis, bilateral feet/hands peripheral neuropathy, blood behind both eyes, peptic ulcer disease/duodenal ulcer/gastritis with erosions, previous hospitalization for pulmonary edema and bilateral pleural effusion and subsequent evaluation showed a preserved LV function with an ejection fraction of around 50%, CKD stage III, normocytic chronic anemia, rheumatoid arthritis, DJD, chronic back pain, osteoarthritis-generalized, eczema, psoriasis, ear infections, hx of narcotic abuse, cocaine abuse and alcohol abuse. History of Any Multi-Drug Resistant Organisms: MRSA Date of last positivie culture/infection: 02/25/08 MDRO Source:: Neck Past Surgical History: Adenoidectomy, Tonsillectomy Additional Past Surgical History / Comment(s): colonoscopy 2008, EGD, lt great toe amp, and part of 2nd toe. Past Anesthesia/Blood Transfusion Reactions: No Reported Reaction Past Psychological History: No Psychological Hx Reported Additional Psychological History / Comment(s): Pt staying with friends in an apartment. Smoking Status: Never smoker Past Alcohol Use History: None Reported Additional Past Alcohol Use History / Comment(s): PT has STATED in PMH that he DRINKS OCC BUT LESS THAN 14 PER WEEK Past Drug Use History: None Reported Additional Drug Use History / Comment(s): PT PMH stated pt DENIES ANY DRUG USE IN AT LEAST 7-8 YEARS. 06/18/16 toxicology + for cocaine. 06/29/16 toxicology + or cocaine. 07/06/16 toxicology + for cocaine. toxicology + cocaine 08/17/16 - Past Family History Father Family Medical History: Diabetes Mellitus, Hypertension Additional Family Medical History / Comment(s): father Mother Additional Family Medical History / Comment(s): pyschiatric issues. General Exam Limitations: altered mental status General appearance: alert, in distress Head exam: Present: atraumatic, normocephalic, normal inspection Eye exam: Present: normal appearance, PERRL, EOMI. Absent: scleral icterus, conjunctival injection, periorbital swelling ENT exam: Present: normal exam, mucous membranes dry Neck exam: Present: normal inspection. Absent: tenderness, meningismus, lymphadenopathy Respiratory exam: Present: normal lung sounds bilaterally. Absent: respiratory distress, wheezes, rales, rhonchi, stridor Cardiovascular Exam: Present: normal rhythm, tachycardia, normal heart sounds. Absent: systolic murmur, diastolic murmur, rubs, gallop, clicks GI/Abdominal exam: Present: soft, normal bowel sounds. Absent: distended, tenderness, guarding, rebound, rigid Extremities exam: Present: normal inspection, full ROM, normal capillary refill. Absent: tenderness, pedal edema, joint swelling, calf tenderness Back exam: Present: normal inspection Neurological exam: Present: alert, oriented X3, CN II-XII intact Psychiatric exam: Present: normal affect, normal mood Skin exam: Present: warm, dry, intact, normal color. Absent: rash Course Vital Signs 08/30/16 08/30/16 08/30/16 09:31 10:15 11:05 Pulse Rate 80 80 100 Respiratory 33 H 22 18 Rate Blood Pressure 95/53 100/58 O2 Sat by Pulse 98 94 L 96 Oximetry 08/30/16 11:15 Pulse Rate 70 Respiratory 22 Rate Blood Pressure 112/52 O2 Sat by Pulse 95 Oximetry - Reevaluation(s) Reevaluation #1: 08/30/16 11:27 Patient showing no clinical improvement in mental status at this time Medical Decision Making - Medical Decision Making 36 mm the ER for evaluation of altered mental status, patient diabetic coma, diabetic U acidosis, patient will be admitted to ICU for intensive care, hyperkalemia is treated, patient started on insulin with significant fluid replacement therapy - Lab Data Result diagrams: 08/30/16 09:46 08/30/16 09:46 Lab Results 08/30/16 08/30/16 08/30/16 Range/Units 09:32 09:46 09:46 WBC 21.8 H (3.8-10.6) k/uL RBC 3.32 L (4.30-5.90) m/uL Hgb 10.7 L (13.0-17.5) gm/dL Hct 41.3 (39.0-53.0) % MCV 124.7 H D (80.0-100.0) fL MCH 32.4 (25.0-35.0) pg MCHC 26.0 L (31.0-37.0) g/dL RDW 14.7 (11.5-15.5) % Plt Count 323 (150-450) k/uL Neutrophils % 83 % Lymphocytes % 11 % Monocytes % 5 % Eosinophils % 0 % Basophils % 0 % Neutrophils # 18.0 H (1.3-7.7) k/uL Lymphocytes # 2.5 (1.0-4.8) k/uL Monocytes # 1.1 H (0-1.0) k/uL Eosinophils # 0.1 (0-0.7) k/uL Basophils # 0.0 (0-0.2) k/uL Hypochromasia Marked Macrocytosis Marked Sodium (137-145) mmol/L Potassium (3.5-5.1) mmol/L Chloride (98-107) mmol/L Carbon Dioxide (22-30) mmol/L Anion Gap mmol/L BUN (9-20) mg/dL Creatinine (0.66-1.25) mg/dL Est GFR (MDRD) Af Amer (>60 ml/min/1.73 sqM) Est GFR (MDRD) Non-Af (>60 ml/min/1.73 sqM) Glucose (74-99) mg/dL POC Glucose (mg/dL) >600 H (75-99) mg/dL POC Glu Napping Machine Operator ID Branch, Bear Plasma Lactic Acid Eliazar (0.7-2.0) mmol/L Calcium (8.4-10.2) mg/dL Phosphorus (2.5-4.5) mg/dL Magnesium (1.6-2.3) mg/dL Total Bilirubin (0.2-1.3) mg/dL AST (17-59) U/L ALT (21-72) U/L Alkaline Phosphatase (38-126) U/L Total Creatine Kinase 457 H (55-170) U/L CK-MB (CK-2) 12.2 H* (0.0-2.4) ng/mL CK-MB (CK-2) Rel Index 2.7 Troponin I 0.055 H* (0.000-0.034) ng/mL Total Protein (6.3-8.2) g/dL Albumin (3.5-5.0) g/dL Serum Alcohol mg/dL Acetone, Qual (Negative) 08/30/16 08/30/16 Range/Units 09:46 09:46 WBC (3.8-10.6) k/uL RBC (4.30-5.90) m/uL Hgb (13.0-17.5) gm/dL Hct (39.0-53.0) % MCV (80.0-100.0) fL MCH (25.0-35.0) pg MCHC (31.0-37.0) g/dL RDW (11.5-15.5) % Plt Count (150-450) k/uL Neutrophils % % Lymphocytes % % Monocytes % % Eosinophils % % Basophils % % Neutrophils # (1.3-7.7) k/uL Lymphocytes # (1.0-4.8) k/uL Monocytes # (0-1.0) k/uL Eosinophils # (0-0.7) k/uL Basophils # (0-0.2) k/uL Hypochromasia Macrocytosis Sodium 130 L (137-145) mmol/L Potassium 7.9 H* (3.5-5.1) mmol/L Chloride 86 L (98-107) mmol/L Carbon Dioxide <5 L* (22-30) mmol/L Anion Gap 39 mmol/L BUN 41 H (9-20) mg/dL Creatinine 3.00 H (0.66-1.25) mg/dL Est GFR (MDRD) Af Amer 26 (>60 ml/min/1.73 sqM) Est GFR (MDRD) Non-Af 22 (>60 ml/min/1.73 sqM) Glucose 1369 H* (74-99) mg/dL POC Glucose (mg/dL) (75-99) mg/dL POC Glu Napping Machine Operator ID Plasma Lactic Acid Eliazar 5.2 H* (0.7-2.0) mmol/L Calcium 8.9 (8.4-10.2) mg/dL Phosphorus 13.6 H* (2.5-4.5) mg/dL Magnesium 2.8 H (1.6-2.3) mg/dL Total Bilirubin 0.5 (0.2-1.3) mg/dL AST 32 (17-59) U/L ALT 42 (21-72) U/L Alkaline Phosphatase 123 (38-126) U/L Total Creatine Kinase (55-170) U/L CK-MB (CK-2) (0.0-2.4) ng/mL CK-MB (CK-2) Rel Index Troponin I (0.000-0.034) ng/mL Total Protein 6.7 (6.3-8.2) g/dL Albumin 4.3 (3.5-5.0) g/dL Serum Alcohol <10 mg/dL Acetone, Qual Positive (Negative) Critical Care Time Critical Care Time: Yes Total Critical Care Time: 32 Disposition Clinical Impression: DKA (diabetic ketoacidoses), Acute hyperkalemia Disposition: ADMITTED IP TO THIS [facility] Condition: Critical
[2016-08-30 10:14] LABS: ALT 42 U/L (21-72); AST 32 U/L (17-59); Alcohol <10 mg/dL; Alkaline Phosphatase 123 U/L (38-126); Blood Urea Nitrogen 41 mg/dL (9-20); Calcium 8.9 mg/dL (8.4-10.2); Chloride 86 mmol/L (98-107); Magnesium 2.8 mg/dL (1.6-2.3); Non-African American GFR(MDRD) 22 (>60 ml/min/1.73 sqM); Sodium 130 mmol/L (137-145); Total Bilirubin 0.5 mg/dL (0.2-1.3); Total Protein 6.7 g/dL (6.3-8.2)
[2016-08-30 10:18] LABS: Anion Gap 39 mmol/L
[2016-08-30 10:22] LABS: Basophils % (A) 0 %; CHCM 24.2; Eosinophils # (A) 0.1 k/uL (0-0.7); Eosinophils % (A) 0 %; HCT 41.3 % (39.0-53.0); HDW 2.52; HGB 10.7 gm/dL (13.0-17.5); Hypochromasia Marked; Luc # (Auto) 0.13; Luc % (Auto) 1; Lymphocytes # (A) 2.5 k/uL (1.0-4.8); Lymphocytes % (A) 11 %; MCH 32.4 pg (25.0-35.0); Macrocytosis Marked; Mean Platelet Volume 8.4; Monocytes # (A) 1.1 k/uL (0-1.0); Monocytes % (A) 5 %; Neutrophils % (A) 83 %; RBC 3.32 m/uL (4.30-5.90); RDW 14.7 % (11.5-15.5); WBC 21.8 k/uL (3.8-10.6); WBC (Perox) 22.83
[2016-08-30 10:30] LABS: Carbon Dioxide <5 mmol/L (22-30); Phosphorous 13.6 mg/dL (2.5-4.5)
[2016-08-30 10:31] LABS: MCV 124.7 fL (80.0-100.0)
[2016-08-30 10:34] LABS: Glucose 1369 mg/dL (74-99); Potassium 7.9 mmol/L (3.5-5.1)
[2016-08-30 11:02] LABS: Creatine Kinase MB 12.2 ng/mL (0.0-2.4)
[2016-08-30 11:03] LABS: Troponin I 0.055 ng/mL (0.000-0.034)
[2016-08-30] MEDS ORDERED: SODIUM BICARB 8.4% 50 ML SYR (1 MEQ/ML) IV STA (11:23)
[2016-08-30] MEDS ORDERED: INSULIN REGULAR BOLUS (FROM DRIP BAG) IV ONE (11:24)
[2016-08-30 11:30] LABS: Appearance,Urine Clear (Clear); Bilirubin,Urine Negative (Negative); Glucose,Urine (UA) 4+ (Negative); Leukocyte Esterase,Urine Negative (Negative); Mucus,Urine Rare /hpf; Nitrite,Urine Negative (Negative); Particle Count 5106; Protein,Urine 1+ (Negative); RBC,Urine <1 /hpf (0-5); Specific Gravity,Urine 1.013 (1.001-1.035); UA Billing (MACRO vs. MICRO) MICRO; Urobilinogen,Urine <2.0 mg/dL (<2.0); WBC,Urine 3 /hpf (0-5)
[2016-08-30] MEDS ORDERED: CALCIUM GLUCONATE 1,000 MG in SODIUM CHLORIDE 0.9% 100 ML IVPB ONE (11:30)
[2016-08-30 11:31] LABS: Manual Review Performed; Toxic Vacuolation Present
[2016-08-30 11:35] LABS: Ketones,Urine 2+ (Negative)
[2016-08-30] MEDS: SODIUM CHLORIDE 0.9% 1,000 ML IV SCH ×3 (11:58→21:30)
[2016-08-30] MEDS: INSULIN REGULAR 100 UNIT in SODIUM CHLORIDE 0.9% 100 ML IV SCH (12:04)
[2016-08-30 12:07] LABS: Glucose,Whole Blood >600 mg/dL (75-99)
[2016-08-30 12:18] LABS: Blood Urea Nitrogen 42 mg/dL (9-20); Chloride 89 mmol/L (98-107); Non-African American GFR(MDRD) 23 (>60 ml/min/1.73 sqM); Sodium 130 mmol/L (137-145)
[2016-08-30 12:24] LABS: Anion Gap 36 mmol/L
[2016-08-30 12:48] LABS: Potassium 7.5 mmol/L (3.5-5.1)
[2016-08-30 12:49] LABS: Carbon Dioxide <5 mmol/L (22-30); Glucose 1312 mg/dL (74-99)
[2016-08-30 13:07] LABS: Glucose,Whole Blood >600 mg/dL (75-99)
[2016-08-30 14:22] LABS: Glucose,Whole Blood >600 mg/dL (75-99)
--- NOTE | 2016-08-30 15:47 | P.CNPUL ---
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 He has had multiple admissions here for diabetic ketoacidosis secondary to his noncompliance. He was brought in again today after being found on the floor of an unknown length of time by his girlfriend. He has been mainly unresponsive but able to protect his airway. Lab results reveal a sodium of 1:30, potassium 7.5, chloride 89, bicarb less than 5, BUN 42, creatinine 2.88, anion gap 36. His blood glucose was 1312 phosphorus 13.0 and his urine drug screen is positive for cocaine. He was admitted to the intensive care unit and initiated on the DKA protocol. He is seen in consultation today. He is moaning and incoherent. He is maintaining good O2 saturations up to the 100% on room air. He is afebrile. Hemodynamically stable. He has received calcium gluconate, regular insulin and sodium bicarb. He's received 1-1/2 L of 0.9 normal saline currently running at 200 mL's per hour. His most recent blood glucose is still greater than 600. He is on a insulin drip currently at 0.1 units per kilogram per hour. Review of Systems ROS unobtainable: due to mental status Past Medical History Past Medical History: Heart Failure, Diabetes Mellitus, Hypertension, Pneumonia , Renal Disease, Rheumatoid Arthritis (RA), Skin Disorder Additional Past Medical History / Comment(s): Pt recently admitted to [facility] on with acute DKA, metabolic encephalopathy, hyperkalemia and hyponatremia. Other HX: IDDM type I poorly controlled, DKAs, diabetic gastroparesis, bilateral feet/hands peripheral neuropathy, blood behind both eyes, peptic ulcer disease/duodenal ulcer/gastritis with erosions, previous hospitalization for pulmonary edema and bilateral pleural effusion and subsequent evaluation showed a preserved LV function with an ejection fraction of around 50%, CKD stage III, normocytic chronic anemia, rheumatoid arthritis, DJD, chronic back pain, osteoarthritis-generalized, eczema, psoriasis, ear infections, hx of narcotic abuse, cocaine abuse and alcohol abuse. History of Any Multi-Drug Resistant Organisms: MRSA Date of last positivie culture/infection: 02/25/08 MDRO Source:: Neck Past Surgical History: Adenoidectomy, Tonsillectomy Additional Past Surgical History / Comment(s): colonoscopy 2009, EGD, lt great toe amp, and part of 2nd toe. Past Anesthesia/Blood Transfusion Reactions: No Reported Reaction Past Psychological History: No Psychological Hx Reported Additional Psychological History / Comment(s): Pt staying with friends in an apartment last admission-unknown where he is living at this time. Smoking Status: Never smoker Past Alcohol Use History: None Reported Additional Past Alcohol Use History / Comment(s): PT has STATED in PMH that he DRINKS OCC BUT LESS THAN 14 PER WEEK Past Drug Use History: None Reported Additional Drug Use History / Comment(s): PT PMH stated pt DENIES ANY DRUG USE IN AT LEAST 7-8 YEARS. 08/30/16 urine + cocaine. 06/18/16 toxicology + for cocaine. 06/29/16 toxicology + or cocaine. 07/06/16 toxicology + for cocaine. toxicology + cocaine 08/17/16 - Past Family History Father Family Medical History: Diabetes Mellitus, Hypertension Additional Family Medical History / Comment(s): father Mother Additional Family Medical History / Comment(s): pyschiatric issues. Medications and Allergies Home Medications Medication Instructions Recorded Confirmed Type Famotidine [Pepcid] 40 mg PO HS 07/24/16 08/30/16 History Metoclopramide [Reglan] 10 mg PO ACHS PRN 07/24/16 08/30/16 History Gabapentin 600 mg PO TID 08/05/16 08/30/16 History Metoprolol Tartrate [Lopressor] 25 mg PO BID 08/05/16 08/30/16 History traZODone HCL [Desyrel] 200 mg PO HS 08/05/16 08/30/16 History Clotrimazole Cream [Lotrimin Cream] 1 applic TOPICAL BID PRN 08/30/16 08/30/16 History INSULIN LISPRO (humaLOG) [humaLOG See Protocol SQ AC-TID 08/30/16 08/30/16 History (formulary)] Ibuprofen [Motrin] 800 mg PO Q8HR PRN 08/30/16 08/30/16 History Insulin Glargine [Lantus] 35 unit SQ W/BRKFST 08/30/16 08/30/16 History Mag Hydrox/Al Hydrox/Simeth 5 ml PO TID PRN 08/30/16 08/30/16 History [Maalox] amLODIPine BESYLATE [Norvasc] 5 mg PO DAILY 08/30/16 08/30/16 History Allergies Allergy/AdvReac Type Severity Reaction Status Date / Time No Known Allergies Allergy Verified 08/30/16 09:57 Physical Exam Vitals: Vital Signs Temp Pulse Resp BP Pulse Ox 08/30/16 14:19 98 F 91 18 128/67 99 08/30/16 12:58 89 18 127/64 100 08/30/16 12:10 87 18 119/62 100 GENERAL EXAM: Lethargic. HEAD: Normocephalic. EYES: Normal reaction of pupils, equal size. NOSE: Clear with pink turbinates. THROAT: No erythema or exudates. NECK: No masses, no JVD. CHEST: No chest wall deformity. LUNGS: Equal air entry with no crackles, wheeze, rhonchi or dullness. CVS: S1 and S2 normal with no audible murmurs, regular rhythm. ABDOMEN: No hepatosplenomegaly, normal bowel sounds, no guarding or rigidity. SPINE: No scoliosis or deformity SKIN: No rashes CENTRAL NERVOUS SYSTEM: No focal deficits, tone is normal in all 4 extremities. Extremities: There is no significant peripheral edema. No clubbing, no cyanosis. Peripheral pulses are intact. Results - Laboratory Findings CBC and BMP: 08/30/16 09:46 08/30/16 11:48 Abnormal lab findings: Abnormal Labs 08/30/16 08/30/16 08/30/16 11:48 11:48 12:06 Sodium 130 L Potassium 7.5 H* Chloride 89 L Carbon Dioxide <5 L* BUN 42 H Creatinine 2.88 H Glucose 1312 H* POC Glucose (mg/dL) >600 H Phosphorus 13.0 H* 08/30/16 08/30/16 13:05 14:21 Sodium Potassium Chloride Carbon Dioxide BUN Creatinine Glucose POC Glucose (mg/dL) >600 H >600 H Phosphorus Assessment and Plan Plan: Impression: #1 Acute diabetic ketoacidosis in a patient with multiple admissions for the same and a history of noncompliance. #2 Altered mental status secondary to above in addition to cocaine found in his urine drug screen. #3 Anion gap metabolic acidosis secondary to DKA. #4 hyperkalemia with presenting potassium of 7.5 secondary to above. #6 Acute renal failure current creatinine 2.88 secondary to above. #5 Diabetes mellitus with significant noncompliance. #6 Diabetic gastroparesis. #7 Diabetic neuropathy. #8 Peripheral vascular disease status post amputation of toes. Plan: The patient was seen and evaluated by Dr. Krueger. We will continue with the DKA protocol and monitor him here closely in the intensive care unit. We'll repeat his labs as scheduled. We will continue to follow and make further recommendations based on his clinical status. Time with Patient: Greater than 30
[2016-08-30 16:00] LABS: Potassium 5.3 mmol/L (3.5-5.1)
[2016-08-30 16:09] LABS: Glucose,Whole Blood >600 mg/dL (75-99)
[2016-08-30 16:10] LABS: Phosphorous 9.3 mg/dL (2.5-4.5)
--- NOTE | 2016-08-30 16:25 | XR ---
EXAMINATION TYPE: XR chest 1V portable DATE OF EXAM: 08/30/2016 4:09 PM HISTORY: Shortness of breath. COMPARISON: 08/17/2016 TECHNIQUE: Single view of the chest is submitted. FINDINGS: Demonstrated are scattered senescent parenchymal change. There is mild increased basilar density which may reflect mild aspiration or atelectasis. The heart is stable. Hilar and mediastinal structures are within normal limits. Degenerative changes are seen of the dorsal spine. IMPRESSION: 1. There is mild increased basilar density which may reflect mild aspiration or atelectasis.
[2016-08-30] MEDS ORDERED: NALOXONE 0.4 MG/ML 1 ML VIAL IV PRN (16:33)
[2016-08-30 16:58] LABS: Glucose,Whole Blood >600 mg/dL (75-99)
[2016-08-30] MEDS: D5-0.45% NACL WITH KCL 20MEQ/L 1,000 ML IV SCH (17:21)
[2016-08-30 18:29] LABS: Glucose,Whole Blood >600 mg/dL (75-99)
[2016-08-30 19:33] LABS: Glucose,Whole Blood >600 mg/dL (75-99)
[2016-08-30] MEDS: ENOXAPARIN 40 MG/0.4 ML SYRINGE SQ SCH (19:36)
[2016-08-30 20:02] LABS: Glucose,Whole Blood 576 mg/dL (75-99)
[2016-08-30 21:19] LABS: Glucose,Whole Blood 427 mg/dL (75-99)
[2016-08-30 22:24] LABS: Glucose,Whole Blood 404 mg/dL (75-99)
[2016-08-30 23:26] LABS: Glucose,Whole Blood 327 mg/dL (75-99)
[2016-08-31 00:12] LABS: Glucose,Whole Blood 293 mg/dL (75-99)
[2016-08-31] MEDS: D5-0.45% NACL WITH KCL 20MEQ/L 1,000 ML IV SCH ×3 (00:13→08:26)
[2016-08-31] MEDS: INSULIN REGULAR 100 UNIT in SODIUM CHLORIDE 0.9% 100 ML IV SCH (00:51)
[2016-08-31 01:10] LABS: Glucose,Whole Blood 237 mg/dL (75-99)
[2016-08-31] MEDS ORDERED: amLODIPine 5 MG TAB PO STA (01:58)
[2016-08-31 02:14] LABS: Glucose,Whole Blood 212 mg/dL (75-99)
[2016-08-31 03:17] LABS: Glucose,Whole Blood 184 mg/dL (75-99)
[2016-08-31 04:05] LABS: Glucose,Whole Blood 171 mg/dL (75-99)
[2016-08-31 05:04] LABS: Glucose,Whole Blood 121 mg/dL (75-99)
[2016-08-31 06:22] LABS: Glucose,Whole Blood 88 mg/dL (75-99)
[2016-08-31 07:02] LABS: Basophils % (A) 0 %; CH 31.9; CHCM 32.8; Eosinophils # (A) 0.1 k/uL (0-0.7); Eosinophils % (A) 1 %; HCT 34.8 % (39.0-53.0); HDW 2.79; HGB 11.4 gm/dL (13.0-17.5); Luc # (Auto) 0.21; Luc % (Auto) 2; Lymphocytes # (A) 0.9 k/uL (1.0-4.8); Lymphocytes % (A) 8 %; MCH 32.2 pg (25.0-35.0); MCHC 32.9 g/dL (31.0-37.0); Mean Platelet Volume 6.8; Monocytes # (A) 0.7 k/uL (0-1.0); Monocytes % (A) 6 %; Neutrophils # (A) 9.3 k/uL (1.3-7.7); Neutrophils % (A) 83 %; RBC 3.55 m/uL (4.30-5.90); WBC 11.2 k/uL (3.8-10.6); WBC (Perox) 12.57
[2016-08-31 07:09] LABS: Glucose,Whole Blood 87 mg/dL (75-99)
[2016-08-31 07:14] LABS: Calcium 8.5 mg/dL (8.4-10.2); Magnesium 2.2 mg/dL (1.6-2.3); Phosphorous 2.5 mg/dL (2.5-4.5); Potassium 4.6 mmol/L (3.5-5.1)
[2016-08-31] MEDS ORDERED: INSULIN NPH 300 UNIT/3 ML VIAL SQ ONE (08:02)
[2016-08-31 08:07] LABS: Glucose,Whole Blood 176 mg/dL (75-99)
[2016-08-31] MEDS: INSULIN GLARGINE 100 UNIT/ML 10 ML VIAL SQ SCH (08:25)
[2016-08-31] MEDS: cloNIDine HCL 0.1 MG TAB PO SCH ×2 (08:26→20:38)
[2016-08-31] MEDS: ENOXAPARIN 40 MG/0.4 ML SYRINGE SQ SCH (08:26)
[2016-08-31] MEDS: PANTOPRAZOLE 40 MG/10 ML VIAL IV SCH (08:26)
--- NOTE | 2016-08-31 08:52 | HP ---
DATE OF ADMISSION: 08/30/2016 PRESENTING COMPLAINT: Found with decreased responsiveness. HISTORY OF PRESENTING COMPLAINT: This is a 56-year-old patient with apparently no family doctor admitted to my service from the ER. Patient's chronic medical conditions include peripheral arterial disease, hypertension, peptic ulcer disease, peripheral neuropathy, chronic kidney disease stage III. Talking to my colleague Dr. Lomas, who has taken care of patient before. Patient has had multiple admissions the hospital and highly noncompliant, takes his insulin whenever he feels like it and does cocaine. This time he is brought in again being rather lethargic by his girlfriend, admitted to the ICU and was started on insulin drip. Review of systems cannot be done. Patient is very lethargic. Past medical history is diabetes mellitus type 2, insulin requiring, gastritis, peripheral artery disease, hypertension, peptic ulcer disease, peripheral neuropathy, also patient's medical condition is listed and includes congestive heart failure, hypertension, rheumatoid arthritis, diabetic gastroparesis, peripheral neuropathy diabetic retinopathy, chronic kidney disease stage III, osteoarthritis of multiple joints, psoriasis, cocaine and alcohol abuse. PAST SURGICAL HISTORY: Adenoidectomy, tonsillectomy. SOCIAL HISTORY: The patient is staying with friends. No smoking. Does drink alcohol and cocaine in the past. FAMILY HISTORY: Diabetes, hypertension. HOME MEDICATIONS: 1. Lotrimin topical b.i.d. p.r.n. 2. Desyrel 200 mg q.h.s. 3. Norvasc 5 mg p.o. daily. 4. Thiamine 100 mg p.o. daily. 5. MiraLAX 17 grams p.o. daily p.r.n. 6. Prilosec 40 mg with breakfast. 7. Multivitamin 1 tablet p.o. daily. 8. Lopressor 25 mg p.o. b.i.d. 9. Reglan 10 mg p.o. a.c. and at bedtime. 10. Maalox 5 mL p.o. t.i.d. p.r.n. 11. Zestril 10 mg p.o. daily. 12. Lantus 35 units subcu with breakfast. 13. Motrin 800 mg p.o. q.8 p.r.n. 14. Humalog per scale. 15. Neurontin 600 mg p.o. t.i.d. 16. Folic acid 1 mg p.o. daily. 17. Pepcid 40 mg p.o. q.h.s. ALLERGIES: None. PHYSICAL EXAMINATION: Vital signs on presentation: Pulse 80, respirations 22, blood pressure 100/58, pulse ox 94% on room air. Temperature 98. GENERAL APPEARANCE: Average build, lethargic, barely arousable. EYES: Pupils equal. Conjunctivae normal. HEENT: External appearance of nose and ears normal. Oral cavity with dry mucous membrane. NECK: JVD unable to assess. Mass not palpable. RESPIRATORY: Effort normal. LUNGS: Diminished breath sounds. CARDIOVASCULAR: First and second sounds. No edema. ABDOMEN: Soft, nontender. Liver and spleen not palpable. LYMPHATIC: No lymph node palpable in the neck or axillae. PSYCHIATRY: Unable to assess. NEUROLOGICAL: Pupils are equal. Moving all 4 limbs. GENITOURINARY: Bello catheter in place. INVESTIGATIONS: White count 21.8, hemoglobin 10.7, potassium 7.9. BUN 41, creatinine 3,00, glucose 1369, lactic acid 5.2, phosphorus 30.6. Troponin 0.055. Patient's hemoglobin on 08/18/16 was 11.2. Patient's BUN and creatinine were 19/1.0 on 08/18/16. Urine drug screen positive for cocaine. Positive for serum acetone. ASSESSMENT: 1. Acute severe metabolic encephalopathy from diabetic ketoacidosis. 2. Acute diabetic ketoacidosis. The patient is on insulin. 3. Chronic noncompliance. 4. Chronic cocaine dependence. 5. Troponin leak from hemodynamic mismatch. 6. Acute renal failure, could be prerenal from severe dehydration. 7. Hyperkalemia from metabolic acidosis. 8. Essential hypertension. 9. Peptic ulcer disease. 10. Peripheral neuropathy from diabetes mellitus type 2. PLAN: The patient is chronically on insulin drip, IV fluids, ( ) precautions will be maintained. Subcu heparin for DVT prophylaxis. Critical care, Dr. Krueger, was consulted. Aggressively being hydrated.
[2016-08-31 10:56] LABS: Hemoglobin A1C 10.5 % (4.2-6.1)
[2016-08-31 11:36] LABS: Glucose,Whole Blood 240 mg/dL (75-99)
[2016-08-31] MEDS: INSULIN LISPRO (humaLOG) 300 UNIT/3 ML VIAL SQ SCH ×5 (11:54→20:38)
--- NOTE | 2016-08-31 12:55 | P.PN ---
Subjective Principal diagnosis: Acute diabetic ketoacidosis This is a 56-year-old gentleman with a known history of diabetes mellitus, peripheral neuropathy with amputation of the toes, hypertension, gastroesophageal reflux disease, illicit drug abuse and noncompliance. He has had multiple admissions here for diabetic ketoacidosis secondary to his noncompliance. He was brought in again today after being found on the floor of an unknown length of time by his girlfriend. He has been mainly unresponsive but able to protect his airway. Lab results reveal a sodium of 1:30, potassium 7.5, chloride 89, bicarb less than 5, BUN 42, creatinine 2.88, anion gap 36. His blood glucose was 1312 phosphorus 13.0 and his urine drug screen is positive for cocaine. He was admitted to the intensive care unit and initiated on the DKA protocol. He is seen in consultation today. He is moaning and incoherent. He is maintaining good O2 saturations up to the 100% on room air. He is afebrile. Hemodynamically stable. He has received calcium gluconate, regular insulin and sodium bicarb. He's received 1-1/2 L of 0.9 normal saline currently running at 200 mL's per hour. His most recent blood glucose is still greater than 600. He is on a insulin drip currently at 0.1 units per kilogram per hour. Patient was reevaluated today on 08/31/2016, patient is now off the insulin drip , his anion gap is only 9. His BUN is 34 creatinine is 1.49, blood sugar is running anywhere between 88 and 176. Patient is now on the scale as per protocol for insulin. Patient is moaning and groaning, but not very cooperative , denies being in pain. Denies shortness of breath. Hence I plan to transfer the patient out of the ICU to a regular medical floor today. Objective - Vital Signs Vital signs: Vital Signs Temp 98.5 F 08/31/16 11:54 Pulse 83 08/31/16 11:54 Resp 18 08/31/16 11:54 BP 132/75 08/31/16 11:54 Pulse Ox 99 08/31/16 11:54 Intake & Output 08/30/16 08/31/16 08/31/16 18:59 06:59 18:59 Intake Total 600 2213.532 600 Output Total 1205 1315 250 Balance -605 898.532 350 Weight 72.4 kg Intake: IV 600 1200 Sodium Chloride 0.9% 1, 600 1200 000 ml @ 200 mls/hr IV . Q5H [facility]GEN Rx#:[id number] Intake, IV Titration 1013.532 600 Amount D5-0.45% NaCl with KCl 900 300 20Meq/l 1,000 ml @ 150 mls/hr IV .[id number] [facility]GEN Rx# :[id number] Insulin Regular 100 unit 113.532 In Sodium Chloride 0.9% 100 ml @ 0.1 UNITS/KG/HR 6.41 mls/hr IV .[id number] [facility]URGEN Rx#:[id number] Sodium Chloride 0.9% 1, 300 000 ml @ 100 mls/hr IV . Q10H STA Rx#:[id number] Output: Urine 1205 1315 250 Other: Voiding Method Indwelling Catheter Indwelling Catheter Indwelling Catheter - Exam GENERAL EXAM: 56-year-old male in no distress, moaning most of the time in the ICU. HEAD: Normocephalic. EYES: Normal reaction of pupils, equal size. NOSE: Clear with pink turbinates. THROAT: No erythema or exudates. NECK: No masses, no JVD. CHEST: No chest wall deformity. LUNGS: Equal air entry with no crackles, wheeze, rhonchi or dullness. CVS: S1 and S2 normal with no audible murmurs, regular rhythm. ABDOMEN: No hepatosplenomegaly, normal bowel sounds, no guarding or rigidity. SPINE: No scoliosis or deformity SKIN: No rashes CENTRAL NERVOUS SYSTEM: No focal deficits, tone is normal in all 4 extremities. Extremities: There is no significant peripheral edema. No clubbing, no cyanosis. Peripheral pulses are intact. - Labs CBC & Chem 7: 08/31/16 06:55 08/31/16 06:55 Labs: Abnormal Lab Results - Last 24 Hours (Table) 08/30/16 08/30/16 08/30/16 Range/Units 11:48 11:48 13:05 WBC (3.8-10.6) k/uL RBC (4.30-5.90) m/uL Hgb (13.0-17.5) gm/dL Hct (39.0-53.0) % Neutrophils # (1.3-7.7) k/uL Lymphocytes # (1.0-4.8) k/uL Sodium 130 L (137-145) mmol/L Potassium 7.5 H* (3.5-5.1) mmol/L Chloride 89 L (98-107) mmol/L Carbon Dioxide <5 L* (22-30) mmol/L BUN 42 H (9-20) mg/dL Creatinine 2.88 H (0.66-1.25) mg/dL Glucose 1312 H* (74-99) mg/dL POC Glucose (mg/dL) >600 H (75-99) mg/dL Hemoglobin A1c (4.2-6.1) % Plasma Lactic Acid Eliazar (0.7-2.0) mmol/L Phosphorus 13.0 H* (2.5-4.5) mg/dL 08/30/16 08/30/16 08/30/16 Range/Units 14:21 15:28 15:28 WBC (3.8-10.6) k/uL RBC (4.30-5.90) m/uL Hgb (13.0-17.5) gm/dL Hct (39.0-53.0) % Neutrophils # (1.3-7.7) k/uL Lymphocytes # (1.0-4.8) k/uL Sodium 135 L (137-145) mmol/L Potassium 5.3 H (3.5-5.1) mmol/L Chloride 95 L (98-107) mmol/L Carbon Dioxide 6 L* (22-30) mmol/L BUN 44 H (9-20) mg/dL Creatinine 2.84 H (0.66-1.25) mg/dL Glucose 979 H* (74-99) mg/dL POC Glucose (mg/dL) >600 H (75-99) mg/dL Hemoglobin A1c (4.2-6.1) % Plasma Lactic Acid Eliazar 2.6 H* (0.7-2.0) mmol/L Phosphorus 9.3 H* (2.5-4.5) mg/dL 08/30/16 08/30/16 08/30/16 Range/Units 16:07 16:57 18:27 WBC (3.8-10.6) k/uL RBC (4.30-5.90) m/uL Hgb (13.0-17.5) gm/dL Hct (39.0-53.0) % Neutrophils # (1.3-7.7) k/uL Lymphocytes # (1.0-4.8) k/uL Sodium (137-145) mmol/L Potassium (3.5-5.1) mmol/L Chloride (98-107) mmol/L Carbon Dioxide (22-30) mmol/L BUN (9-20) mg/dL Creatinine (0.66-1.25) mg/dL Glucose (74-99) mg/dL POC Glucose (mg/dL) >600 H >600 H >600 H (75-99) mg/dL Hemoglobin A1c (4.2-6.1) % Plasma Lactic Acid Eliazar (0.7-2.0) mmol/L Phosphorus (2.5-4.5) mg/dL 08/30/16 08/30/16 08/30/16 Range/Units 19:31 20:00 21:16 WBC (3.8-10.6) k/uL RBC (4.30-5.90) m/uL Hgb (13.0-17.5) gm/dL Hct (39.0-53.0) % Neutrophils # (1.3-7.7) k/uL Lymphocytes # (1.0-4.8) k/uL Sodium (137-145) mmol/L Potassium (3.5-5.1) mmol/L Chloride (98-107) mmol/L Carbon Dioxide (22-30) mmol/L BUN (9-20) mg/dL Creatinine (0.66-1.25) mg/dL Glucose (74-99) mg/dL POC Glucose (mg/dL) >600 H 576 H 427 H (75-99) mg/dL Hemoglobin A1c (4.2-6.1) % Plasma Lactic Acid Eliazar (0.7-2.0) mmol/L Phosphorus (2.5-4.5) mg/dL 08/30/16 08/30/16 08/31/16 Range/Units 22:23 23:24 00:11 WBC (3.8-10.6) k/uL RBC (4.30-5.90) m/uL Hgb (13.0-17.5) gm/dL Hct (39.0-53.0) % Neutrophils # (1.3-7.7) k/uL Lymphocytes # (1.0-4.8) k/uL Sodium (137-145) mmol/L Potassium (3.5-5.1) mmol/L Chloride (98-107) mmol/L Carbon Dioxide (22-30) mmol/L BUN (9-20) mg/dL Creatinine (0.66-1.25) mg/dL Glucose (74-99) mg/dL POC Glucose (mg/dL) 404 H 327 H 293 H (75-99) mg/dL Hemoglobin A1c (4.2-6.1) % Plasma Lactic Acid Eliazar (0.7-2.0) mmol/L Phosphorus (2.5-4.5) mg/dL 08/31/16 08/31/16 08/31/16 Range/Units 01:08 02:12 03:16 WBC (3.8-10.6) k/uL RBC (4.30-5.90) m/uL Hgb (13.0-17.5) gm/dL Hct (39.0-53.0) % Neutrophils # (1.3-7.7) k/uL Lymphocytes # (1.0-4.8) k/uL Sodium (137-145) mmol/L Potassium (3.5-5.1) mmol/L Chloride (98-107) mmol/L Carbon Dioxide (22-30) mmol/L BUN (9-20) mg/dL Creatinine (0.66-1.25) mg/dL Glucose (74-99) mg/dL POC Glucose (mg/dL) 237 H 212 H 184 H (75-99) mg/dL Hemoglobin A1c (4.2-6.1) % Plasma Lactic Acid Eliazar (0.7-2.0) mmol/L Phosphorus (2.5-4.5) mg/dL 08/31/16 08/31/16 08/31/16 Range/Units 04:04 05:02 06:55 WBC (3.8-10.6) k/uL RBC (4.30-5.90) m/uL Hgb (13.0-17.5) gm/dL Hct (39.0-53.0) % Neutrophils # (1.3-7.7) k/uL Lymphocytes # (1.0-4.8) k/uL Sodium (137-145) mmol/L Potassium (3.5-5.1) mmol/L Chloride (98-107) mmol/L Carbon Dioxide (22-30) mmol/L BUN (9-20) mg/dL Creatinine (0.66-1.25) mg/dL Glucose (74-99) mg/dL POC Glucose (mg/dL) 171 H 121 H (75-99) mg/dL Hemoglobin A1c 10.5 H (4.2-6.1) % Plasma Lactic Acid Eliazar (0.7-2.0) mmol/L Phosphorus (2.5-4.5) mg/dL 08/31/16 08/31/16 08/31/16 Range/Units 06:55 06:55 08:06 WBC 11.2 H (3.8-10.6) k/uL RBC 3.55 L (4.30-5.90) m/uL Hgb 11.4 L (13.0-17.5) gm/dL Hct 34.8 L (39.0-53.0) % Neutrophils # 9.3 H (1.3-7.7) k/uL Lymphocytes # 0.9 L (1.0-4.8) k/uL Sodium 147 H (137-145) mmol/L Potassium (3.5-5.1) mmol/L Chloride 112 H (98-107) mmol/L Carbon Dioxide (22-30) mmol/L BUN 34 H (9-20) mg/dL Creatinine 1.49 H (0.66-1.25) mg/dL Glucose 100 H (74-99) mg/dL POC Glucose (mg/dL) 176 H (75-99) mg/dL Hemoglobin A1c (4.2-6.1) % Plasma Lactic Acid Eliazar (0.7-2.0) mmol/L Phosphorus (2.5-4.5) mg/dL 08/31/16 Range/Units 11:34 WBC (3.8-10.6) k/uL RBC (4.30-5.90) m/uL Hgb (13.0-17.5) gm/dL Hct (39.0-53.0) % Neutrophils # (1.3-7.7) k/uL Lymphocytes # (1.0-4.8) k/uL Sodium (137-145) mmol/L Potassium (3.5-5.1) mmol/L Chloride (98-107) mmol/L Carbon Dioxide (22-30) mmol/L BUN (9-20) mg/dL Creatinine (0.66-1.25) mg/dL Glucose (74-99) mg/dL POC Glucose (mg/dL) 240 H (75-99) mg/dL Hemoglobin A1c (4.2-6.1) % Plasma Lactic Acid Eliazar (0.7-2.0) mmol/L Phosphorus (2.5-4.5) mg/dL Assessment and Plan Plan: #1 Acute diabetic ketoacidosis in a patient with multiple admissions for the same and a history of noncompliance. #2 Altered mental status secondary to above in addition to cocaine found in his urine drug screen. #3 Anion gap metabolic acidosis secondary to DKA. #4 hyperkalemia with presenting potassium of 7.5 secondary to above. #6 Acute renal failure current creatinine 2.88 secondary to above. #5 Diabetes mellitus with significant noncompliance. #6 Diabetic gastroparesis. #7 Diabetic neuropathy. #8 Peripheral vascular disease status post amputation of toes. Recommendation: Continue present treatment plan continue to follow insulin protocol posterior DKA, patient can be transferred out of the ICU to a regular medical floor, and will follow on when necessary basis. We'll go ahead and sign off for now. Time with Patient: Less than 30
[2016-08-31 15:07] VITALS: BMI 24.3
[2016-08-31 16:34] LABS: Anion Gap 10 mmol/L; Blood Urea Nitrogen 27 mg/dL (9-20); Carbon Dioxide 22 mmol/L (22-30); Chloride 112 mmol/L (98-107); Non-African American GFR(MDRD) >60 (>60 ml/min/1.73 sqM); Potassium 4.5 mmol/L (3.5-5.1); Sodium 144 mmol/L (137-145)
[2016-08-31 17:14] LABS: Glucose,Whole Blood 215 mg/dL (75-99)
--- NOTE | 2016-08-31 18:01 | CONS ---
REASON FOR CONSULTATION: Renal failure. DATE OF CONSULTATION: 08/31/2016 HISTORY OF PRESENT ILLNESS: Patient is at 56-year-old white male who was admitted to the hospital with DKA. He was admitted initially with decreased responsiveness and found to be in DKA. His serum creatinine was at 3 mg/dL. Patient is maintained on aggressive IV hydration and his serum creatinine has improved now to 1.2 mg/dL. Blood pressure has not been low. Patient has had good urine output. PAST MEDICAL HISTORY: Diabetes, hypertension, history of pneumonia, history of CKD with previous creatinine as low as 1.0 mg/dL earlier part of last month. Multiple admissions for DKA. Patient also has diabetic gastroparesis, peripheral neuropathy, anemia of most likely of chronic disease. He has a diagnosis of rheumatoid arthritis listed along with psoriasis. SOCIAL HISTORY: Positive for cocaine abuse, alcohol abuse, narcotic abuse. Medications at home prior to admission included: 1. Paxil. 2. Reglan. 3. Lopressor. 4. Desyrel. 5. Insulin. 6. Norvasc. 7. Maalox. 8. Motrin. ALLERGIES: None. Review of systems cannot be obtained in detail, but there is no active nausea or vomiting noted. No bleeding noted. No significant shortness of breath. On examination, the patient is comfortable. He is not in any acute distress. Blood pressure is 129/64, heart rate 89 per minute. Patient is afebrile. HEART: S1 and S2. LUNGS: Bilateral breath sounds are heard. ABDOMEN: Soft, nontender. Lower extremities show no evidence of edema. LICENSED FUNERAL DIRECTOR AND EMBALMER shows patient is moving all 4 extremities. Labs show sodium 144, potassium 4.5, chloride 112, BUN 27, serum creatinine 1.2. ASSESSMENT: 1. Acute kidney injury, prerenal, currently significantly improved. 2. Chronic kidney disease stage 3 with creatinine as low as 1.0; however, UA shows 1+ protein and patient most likely has underlying diabetic nephropathy. 3. Diabetic ketoacidosis, currently resolved. 4. History of cocaine abuse. 5. History of EtOH abuse. PLAN: Continue with IV fluids. Repeat labs in a.m. Patient should avoid persistent use of NSAIDs as outpatient. I did see Motrin on his home medication list. Thank you for this consultation. Will continue to follow the patient with you during his hospitalization.
[2016-08-31 20:17] LABS: Glucose,Whole Blood 175 mg/dL (75-99)
--- NOTE | 2016-08-31 23:06 | CT ---
EXAM: CT Head Without Intravenous Contrast. CLINICAL HISTORY: Reason: altered mental status TECHNIQUE: Axial computed tomography images of the head/brain without intravenous contrast. CTDI is 57.40 mGy and DLP is 978.20 mGy-cm This CT exam was performed using one or more of the following dose reduction techniques: automated exposure control, adjustment of the mA and/or kV according to patient size, and/or use of iterative reconstruction technique. COMPARISON: 08/17/2016 FINDINGS: Brain: Unremarkable. No acute hemorrhage. Normal quintero-white differentiation. No significant mass effect. Ventricles: Unremarkable. No ventriculomegaly. Bones/joints: Unremarkable. No acute fracture. Soft tissues: Unremarkable. Sinuses: Unremarkable as visualized. No acute sinusitis. Mastoid air cells: Unremarkable. IMPRESSION: No acute intracranial abnormality.
[2016-09-01] MEDS: D5-0.45% NACL WITH KCL 20MEQ/L 1,000 ML IV SCH (03:00)
[2016-09-01 07:08] LABS: Basophils % (A) 0 %; CH 32.3; CHCM 34.1; Eosinophils # (A) 0.2 k/uL (0-0.7); Eosinophils % (A) 2 %; HCT 32.5 % (39.0-53.0); HDW 2.85; Luc # (Auto) 0.09; Luc % (Auto) 1; Lymphocytes # (A) 2.2 k/uL (1.0-4.8); Lymphocytes % (A) 27 %; MCH 32.5 pg (25.0-35.0); MCV 95.4 fL (80.0-100.0); Mean Platelet Volume 8.7; Monocytes # (A) 0.4 k/uL (0-1.0); Monocytes % (A) 5 %; Neutrophils # (A) 5.3 k/uL (1.3-7.7); Neutrophils % (A) 65 %; RDW 15.4 % (11.5-15.5); WBC 8.2 k/uL (3.8-10.6); WBC (Perox) 8.27
[2016-09-01 07:19] LABS: Glucose,Whole Blood 135 mg/dL (75-99)
[2016-09-01 07:28] LABS: Anion Gap 8 mmol/L; Blood Urea Nitrogen 18 mg/dL (9-20); Calcium 8.6 mg/dL (8.4-10.2); Carbon Dioxide 23 mmol/L (22-30); Chloride 110 mmol/L (98-107); Glucose 134 mg/dL (74-99); Non-African American GFR(MDRD) >60 (>60 ml/min/1.73 sqM); Phosphorous 2.4 mg/dL (2.5-4.5); Potassium 4.6 mmol/L (3.5-5.1); Sodium 141 mmol/L (137-145)
[2016-09-01] MEDS: INSULIN LISPRO (humaLOG) 300 UNIT/3 ML VIAL SQ SCH ×7 (07:51→21:19)
[2016-09-01] MEDS: METOPROLOL TARTRATE 25 MG TAB PO SCH ×3 (07:52→21:18)
[2016-09-01] MEDS: PANTOPRAZOLE 40 MG/10 ML VIAL IV SCH (07:52)
[2016-09-01] MEDS: ENOXAPARIN 40 MG/0.4 ML SYRINGE SQ SCH (07:53)
--- NOTE | 2016-09-01 08:26 | PN ---
DATE OF SERVICE: 08/31/2016 PRESENTING COMPLAINT: Altered mental status. INTERVAL HISTORY: This patient presented with multiple issues, has been known to be noncompliant with metabolic encephalopathy and diabetic ketoacidosis. Also had acute renal failure, which actually is improved. Patient rather lethargic, just about arousable. Really not eating. Has not really received any sedatives. Review of systems cannot be done because patient is lethargic. Current medications are reviewed that include Lantus, Catapres. On examination, temperature 98.7, pulse 71, respirations 16, blood pressure 109/71, pulse ox 98% on room air. GENERAL APPEARANCE: Generally, lying in bed, lethargic, but arousable. EYES: Pupils equal. Conjunctivae normal. NECK: JVD not raised. Mass not palpable. RESPIRATORY: Effort normal. LUNGS: Diminished breath sounds. CARDIOVASCULAR: First and second sounds normal. No edema. ABDOMEN: Soft, nontender. Liver and spleen not palpable. NEUROLOGICAL: Moving all 4 limbs. INVESTIGATIONS: Potassium 4.5. BUN 27, creatinine 1.21. ASSESSMENT: 1. Acute severe metabolic encephalopathy from diabetic ketoacidosis, which has improved. Patient has been noncompliant with medications. I need to rule out underlying seizure activity; hence we will order an EEG. Though there is no focal findings, will order CT scan of the brain, though frankly I do not see any focal manifestation. 2. Acute diabetic ketoacidosis, now resolved. 3. Chronic noncompliance. 4. Chronic cocaine dependence. 5. Troponin leak from hemodynamic mismatch. 6. Acute renal failure, could be prerenal from severe dehydration, now much improved. 7. Hypokalemia, improved. 8. Essential hypertension. 9. Peptic ulcer disease. 10. Peripheral neuropathy and diabetes mellitus type 2. PLAN: Will do fall precautions, do an EEG and CT scan of the brain without contrast. Clonidine does have a central effect. Will discontinue the same and use Lopressor instead. Blood pressure is rather reasonable right now. Will follow.
[2016-09-01] MEDS: INSULIN GLARGINE 100 UNIT/ML 10 ML VIAL SQ SCH (09:37)
[2016-09-01 11:19] LABS: Glucose,Whole Blood 83 mg/dL (75-99)
--- NOTE | 2016-09-01 14:12 | PN ---
Patient is seen for follow-up for kidney injury, was admitted to the hospital with DKA. His creatinine was as high as 3.0 it is now down to 0.95 g/dL. On examination, the patient is comfortable. Blood pressure is 154/89, heart rate 70 per minute. He is afebrile. Examination of the heart, S1, S2. Examination of the lungs: Bilateral breath sounds are heard. ABDOMEN: Soft, nontender. Examination of lower extremities shows no evidence of edema. DATA WAREHOUSE CONSULTANT exam is grossly intact. Labs show sodium 141, potassium 4.6. Hemoglobin 11.0 g/dL. Serum creatinine 0.95. ASSESSMENT: 1. Acute kidney injury, prerenal, currently resolved. 2. Diabetic ketoacidosis, currently resolved. 3. Metabolic encephalopathy, currently improved. 4. Hypokalemia, status post replacement. PLAN: Continue to encourage to increase oral intake. Possible discharge soon.
[2016-09-01 17:12] LABS: Glucose,Whole Blood 202 mg/dL (75-99)
[2016-09-01 20:17] LABS: Glucose,Whole Blood 142 mg/dL (75-99)
[2016-09-01] MEDS ORDERED: traZODone HCL 100 MG TAB PO SCH (21:00)
[2016-09-01] MEDS: GABAPENTIN 100 MG CAP PO SCH ×2 (21:18→21:23)
[2016-09-01] MEDS: LISINOPRIL 10 MG TAB PO SCH (21:19)
[2016-09-02 02:38] LABS: Glucose,Whole Blood 202 mg/dL (75-99)
[2016-09-02 07:29] LABS: Glucose,Whole Blood 247 mg/dL (75-99)
[2016-09-02 08:06] LABS: Basophils % (A) 1 %; CH 32.2; CHCM 33.2; Eosinophils # (A) 0.1 k/uL (0-0.7); Eosinophils % (A) 3 %; HCT 35.6 % (39.0-53.0); HDW 2.77; HGB 11.9 gm/dL (13.0-17.5); Luc # (Auto) 0.09; Luc % (Auto) 2; Lymphocytes # (A) 1.9 k/uL (1.0-4.8); Lymphocytes % (A) 46 %; MCH 32.7 pg (25.0-35.0); MCHC 33.5 g/dL (31.0-37.0); MCV 97.4 fL (80.0-100.0); Mean Platelet Volume 8.7; Monocytes # (A) 0.2 k/uL (0-1.0); Monocytes % (A) 5 %; Neutrophils # (A) 1.8 k/uL (1.3-7.7); Neutrophils % (A) 44 %; RBC 3.65 m/uL (4.30-5.90); RDW 14.9 % (11.5-15.5); WBC 4.2 k/uL (3.8-10.6); WBC (Perox) 4.25
[2016-09-02] MEDS: INSULIN GLARGINE 100 UNIT/ML 10 ML VIAL SQ SCH (08:13)
[2016-09-02] MEDS: INSULIN LISPRO (humaLOG) 300 UNIT/3 ML VIAL SQ SCH ×3 (08:13→12:57)
[2016-09-02] MEDS: GABAPENTIN 100 MG CAP PO SCH (08:15)
[2016-09-02] MEDS: METOPROLOL TARTRATE 25 MG TAB PO SCH (08:15)
[2016-09-02] MEDS: LISINOPRIL 10 MG TAB PO SCH (08:15)
[2016-09-02] MEDS: ENOXAPARIN 40 MG/0.4 ML SYRINGE SQ SCH ×2 (08:15→08:27)
[2016-09-02] MEDS: PANTOPRAZOLE 40 MG/10 ML VIAL IV SCH (08:15)
--- NOTE | 2016-09-02 08:25 | PN ---
DATE OF SERVICE: 09/01/2016 PRESENTING COMPLAINT: Diabetic ketoacidosis. INTERVAL HISTORY: This patient with multiple issues who is noncompliant present with metabolic encephalopathy and diabetic ketoacidosis, acute renal failure, which actually is completely resolved. Patient is doing better today. Did initially eat 75% of his dinner. In the daytime, actually complained of no pain at all. When I walked in the room, he is very comfortable, sitting up. I actually made the patient walk, trouble sitting down. Review of systems done for constitutional, cardiovascular, GI, pulmonary; relevant findings as above. Current medications are reviewed that include Lantus. Humalog, Lopressor. On examination, temperature 98.7, pulse 64, respiration 18, blood pressure 136/84, pulse ox 100% on room air. GENERAL APPEARANCE: Sitting up, rather comfortable, awake. EYES: Pupils equal. Conjunctivae normal. NECK: JVD not raised. Mass not palpable. RESPIRATORY: Effort normal. LUNGS: Decreased breath sounds. CARDIOVASCULAR: First and second sounds normal. No edema. ABDOMEN: Soft, nontender. Liver and spleen not palpable. NEUROLOGICAL: ( ) the patient, he is able to walk on his own, slightly unsteady, but pretty good. Was able to go and sit down on the chair. Has walked to the bathroom several times today witnessed by the nurse. INVESTIGATIONS: White count 8.2, hemoglobin 11. Potassium 4.6. BUN and creatinine are normal. Accu-Cheks noted to 135, 83, 202. ASSESSMENT: 1. Acute severe metabolic encephalopathy probably from diabetic ketoacidosis, been noncompliant, much improved. CT scan of the brain was negative. 2. Acute diabetic ketoacidosis, resolved. 3. Chronic noncompliance. 4. Chronic cocaine dependence. 5. Troponin leak from hemodynamic mismatch. 6. Acute renal failure, likely prerenal, resolved. 7. Hyperkalemia, improved. 8. Essential hypertension. 9. Peptic ulcer disease. 10. Peripheral neuropathy of diabetes mellitus, type 2. PLAN: Patient has got a heavy list of antihypertensives at home, but he is rather reasonably well controlled just on Lopressor. Will add the lisinopril. Patient's oral intake over the day has actually increased. Will keep the patient on current dose of insulin. Patient also was listed of taking 600 mg of Neurontin 3 times a day at home. Not sure if patient is really taking it in the evening. Patient did complain of some pain. Will put him back on a smaller dose of 100 mg 3 times a day. We will also put the patient back on his Desyrel and see how the patient does.
[2016-09-02 08:31] LABS: Anion Gap 7 mmol/L; Blood Urea Nitrogen 14 mg/dL (9-20); Calcium 8.9 mg/dL (8.4-10.2); Carbon Dioxide 22 mmol/L (22-30); Chloride 108 mmol/L (98-107); Glucose 274 mg/dL (74-99); Non-African American GFR(MDRD) >60 (>60 ml/min/1.73 sqM); Phosphorous 2.4 mg/dL (2.5-4.5); Potassium 4.8 mmol/L (3.5-5.1); Sodium 137 mmol/L (137-145)
[2016-09-02 08:51] VITALS: BP 153/79; PULSE 60; RESP 18; TEMP 98.7
[2016-09-02] MEDS ORDERED: INSULIN GLARGINE 100 UNIT/ML 10 ML VIAL SQ SCH (10:45)
[2016-09-02 11:30] LABS: Glucose,Whole Blood 195 mg/dL (75-99)
[2016-09-02] MEDS ORDERED: INSULIN LISPRO (humaLOG) 300 UNIT/3 ML VIAL SQ SCH (12:30)
[2016-09-02] MEDS ORDERED: CALCIUM CARBONATE LIQUID 500 MG/5 ML CUP PO SCH (13:30)
--- NOTE | 2016-09-03 08:07 | EEG ---
DATE OF SERVICE: 09/02/2016 INDICATIONS FOR EXAMINATION: Syncope. Possible seizure. AGE: 56Y DESCRIPTION OF PROCEDURE: This EEG was performed using a 21 channel digital electroencephalograph following international 10-20 system. DESCRIPTION OF THE RECORDING: From the beginning of the tracing and with the patient's eyes closed, the background rhythm was mostly consisting of 8 Hz alpha frequency in the posterior occipital leads. Occasional lead artifacts and muscle artifacts are seen. Photic stimulation was performed with a minimal driving response seen. No pathological waves were elicited. Hyperventilation was not performed. More movement artifacts are seen later in the tracing. The patient remains awake throughout the tracing. No epileptiform discharges were seen. His EKG showed regular rate and rhythm. INTERPRETATION: This awake EEG can be considered within normal limits. There was no asymmetry seen. No epileptiform discharges were noted. The absence of epileptiform discharges does not rule out the diagnosis of epilepsy, therefore, clinical correlation is recommended.
--- NOTE | 2016-09-03 10:12 | DS ---
DATE OF ADMISSION: 08/30/2016 DATE OF DISCHARGE: 09/02/2016 FINAL DIAGNOSES: 1. Acute severe metabolic encephalopathy from diabetic ketoacidosis. 2. Acute diabetic ketoacidosis on presentation. 3. Chronic noncompliance. 4. Chronic cocaine dependence. 5. Troponin leak from hemodynamic mismatch. 6. Acute renal failure, likely prerenal on presentation, resolved. 7. Hyperkalemia, resolved. 8. Essential hypertension. 9. Peptic ulcer disease. 10. Peripheral neuropathy from diabetes mellitus, type 2. HOSPITAL COURSE: This patient who has had multiple admissions, ( )patient, admitted to my service by request of my colleagues. The patient was in DKA that resolved. I did cut back on patient's dose of Neurontin. Was getting hefty dose because ( ). Patient complaining of some epigastric pain and did well, up and about in the hallway. Dose of insulin adjusted. Patient repeatedly was counseled against use of recreational medication and drug and did give him Tums for his stomach. Patient had renal failure when he first came in. Creatinine up to 3 and did come down to 0.87 at the time of discharge. ON EXAM: LUNGS: Improved air entry. CARDIOVASCULAR: First and second sounds normal. Patient able carry on a normal conversation. CONSULTATION: Dr. Krueger from pulmonary; Dr. Gordon from nephrology. DISCHARGE MEDICATIONS: 1. Folic acid 1 mg a day. 2. Multivitamin 1 tablet p.o. daily. 3. Thiamine 100 mg daily. 4. Zestril 10 mg p.o. daily. 5. Prilosec 40 mg daily. 6. MiraLAX 17 grams daily p.r.n. 7. Lopressor 25 p.o. b.i.d. 8. Trazodone 200 mg p.o. q.h.s. 9. Lotrimin topical b.i.d. p.r.n. 10. Tums 500 mg p.o. t.i.d. 11. Neurontin 100 mg p.o. t.i.d. 12. Humalog 8 units a.c. t.i.d. 13. Lantus 30 units subcu with breakfast. Follow up with Dr. Sofia Emanuel on 09/06/2016. DIET: Diabetic.
== END 2016-09-02 15:05 | disposition home health service (06) | DRG 637 ==
LOC: EC 09:29 → 6ICU 11:24 → 5MS5E 08-31 09:28
PROVIDERS: ADMIT Hospitalist; ATTEND Hospitalist
DX: E13.10 Other specified diabetes mellitus with ketoacidosis without coma (principal); G93.41 Metabolic encephalopathy; N17.9 Acute kidney failure, unspecified; F14.20 Cocaine dependence, uncomplicated; I13.0 Hypertensive heart and chronic kidney disease with heart failure and stage 1 through stage 4 chronic kidney disease, or unspecified chronic kidney disease; I50.9 Heart failure, unspecified; K31.84 Gastroparesis; N18.3 Chronic kidney disease, stage 3 (moderate); D63.8 Anemia in other chronic diseases classified elsewhere; E11.21 Type 2 diabetes mellitus with diabetic nephropathy; E11.22 Type 2 diabetes mellitus with diabetic chronic kidney disease; E11.319 Type 2 diabetes mellitus with unspecified diabetic retinopathy without macular edema; E11.42 Type 2 diabetes mellitus with diabetic polyneuropathy; E11.43 Type 2 diabetes mellitus with diabetic autonomic (poly)neuropathy; E87.6 Hypokalemia; E11.51 Type 2 diabetes mellitus with diabetic peripheral angiopathy without gangrene; F10.10 Alcohol abuse, uncomplicated; F11.10 Opioid abuse, uncomplicated; K21.9 Gastro-esophageal reflux disease without esophagitis; K27.9 Peptic ulcer, site unspecified, unspecified as acute or chronic, without hemorrhage or perforation; M06.9 Rheumatoid arthritis, unspecified; M15.9 Polyosteoarthritis, unspecified; Z79.4 Long term (current) use of insulin; Z79.899 Other long term (current) drug therapy; Z82.49 Family history of ischemic heart disease and other diseases of the circulatory system; Z83.3 Family history of diabetes mellitus; Z87.01 Personal history of pneumonia (recurrent); Z89.429 Acquired absence of other toe(s), unspecified side; Z91.14 Patient's other noncompliance with medication regimen; Z91.19 Patient's noncompliance with other medical treatment and regimen
CPT/HCPCS: 36415; 70450; 71010; 80048; 80051; 80053; 80306; 80320; 81001; 82009; 82550; 82553; 82565; 82947; 83036; 83605; 83735; 84100; 84484; 84520; 85025; 87086; 94760; 95816; 96361; 96365; 96366; 96367; 96375; 96376; 99291

== ENCOUNTER 2016-09-04 10:14 | Emergency (ER) | payer OTHER ==
[2016-09-04 10:29] VITALS: RESP 18
--- NOTE | 2016-09-04 11:16 | ED ---
General Adult HPI - General Chief complaint: Abdominal Pain Stated complaint: INDIGESTION Time Seen by Provider: 09/04/16 11:00 Source: patient, EMS Mode of arrival: EMS Limitations: no limitations - History of Present Illness Initial comments: 56-year-old male presenting for abdominal pain. Patient states it is in the epigastric area and feels like a burning sensation. He states he's had this for some time but it is worsening over the past few days. States he was recently discharged from the hospital for DKA. States he "wasn't given anything for his stomach." He states he hasn't taken any medications for his stomach. Denies any fevers or chills. Denies any nausea or vomiting. Denies any chest pain or shortness of breath. - Related Data Home Medications Medication Instructions Recorded Confirmed Metoprolol Tartrate [Lopressor] 25 mg PO BID 08/05/16 09/04/16 traZODone HCL [Desyrel] 200 mg PO HS 08/05/16 09/04/16 Clotrimazole Cream [Lotrimin Cream] 1 applic TOPICAL BID PRN 08/30/16 09/04/16 Previous Rx's Medication Instructions Recorded Folic Acid 1 mg PO DAILY #30 tablet 07/16/16 Multivitamins, Thera [Multivitamin 1 tab PO DAILY #30 tablet 07/16/16 (formulary)] Thiamine [Vitamin B-1] 100 mg PO DAILY #30 tablet 07/16/16 Lisinopril [Zestril] 10 mg PO DAILY #30 tab 07/25/16 Omeprazole [PriLOSEC] 40 mg PO AC-BRKFST #30 capsule. 07/25/16 Polyethylene Glycol 3350 [Miralax] 17 gm PO DAILY PRN #30 packet 07/25/16 Calcium Carbonate [Tums] 500 mg PO TID #1 chew 09/02/16 Gabapentin [Neurontin] 100 mg PO TID #60 cap 09/02/16 INSULIN LISPRO (humaLOG) [humaLOG 8 unit SQ AC-TID #1 vial 09/02/16 (formulary)] Insulin Glargine [Lantus] 30 unit SQ W/BRKFST #0 09/02/16 Omeprazole [PriLOSEC] 40 mg PO AC-BRKFST #30 capsule. 09/04/16 Allergies Allergy/AdvReac Type Severity Reaction Status Date / Time No Known Allergies Allergy Verified 09/04/16 11:15 Review of Systems ROS Statement: Those systems with pertinent positive or pertinent negative responses have been documented in the HPI. ROS Other: All systems not noted in ROS Statement are negative. Past Medical History Past Medical History: Heart Failure, Diabetes Mellitus, Hypertension, Pneumonia , Renal Disease, Rheumatoid Arthritis (RA), Skin Disorder Additional Past Medical History / Comment(s): Pt recently admitted to [facility] on with acute DKA, metabolic encephalopathy, hyperkalemia and hyponatremia. Other HX: IDDM type I poorly controlled, DKAs, diabetic gastroparesis, bilateral feet/hands peripheral neuropathy, blood behind both eyes, peptic ulcer disease/duodenal ulcer/gastritis with erosions, previous hospitalization for pulmonary edema and bilateral pleural effusion and subsequent evaluation showed a preserved LV function with an ejection fraction of around 50%, CKD stage III, normocytic chronic anemia, rheumatoid arthritis, DJD, chronic back pain, osteoarthritis-generalized, eczema, psoriasis, ear infections, hx of narcotic abuse, cocaine abuse and alcohol abuse. History of Any Multi-Drug Resistant Organisms: MRSA Date of last positivie culture/infection: 02/25/08 MDRO Source:: Neck Past Surgical History: Adenoidectomy, Tonsillectomy Additional Past Surgical History / Comment(s): colonoscopy 2008, EGD, lt great toe amp, and part of 2nd toe. Past Anesthesia/Blood Transfusion Reactions: No Reported Reaction Past Psychological History: No Psychological Hx Reported Additional Psychological History / Comment(s): Pt staying with friends in an apartment last admission-unknown where he is living at this time. Smoking Status: Never smoker Past Alcohol Use History: None Reported Additional Past Alcohol Use History / Comment(s): PT has STATED in PMH that he DRINKS OCC BUT LESS THAN 14 PER WEEK Past Drug Use History: None Reported Additional Drug Use History / Comment(s): PT PMH stated pt DENIES ANY DRUG USE IN AT LEAST 7-8 YEARS. 08/30/16 urine + cocaine. 06/18/16 toxicology + for cocaine. 06/29/16 toxicology + or cocaine. 07/06/16 toxicology + for cocaine. toxicology + cocaine 08/17/16 - Past Family History Father Family Medical History: Diabetes Mellitus, Hypertension Additional Family Medical History / Comment(s): father Mother Additional Family Medical History / Comment(s): pyschiatric issues. General Exam - General Exam Comments Initial Comments: General: Awake and Alert. No acute distress. Does not appear acutely ill. Eyes: LEVAR, EOM intact. No nystagmus. No scleral icterus. HENT: Atraumatic, normocephalic. Mucous membranes moist. Trachea midline. Neck: The neck is supple, there is no tenderness or JVD. Cardiovascular: Regular rate and rhythm. No murmur, rub, or gallop is appreciated. Distal pulses intact. Respiratory: Lungs are clear to auscultation bilaterally. No wheezes, rales, rhonchi. No respiratory distress. Gastrointestinal: Soft, epigastric tenderness. No rebound or guarding. Non- distended. No masses or organomegaly noted. No CVA tenderness. Musculoskeletal: No tenderness. Normal ROM. No gross deformity. No strength deficits. Neurological: A&Ox3. CN II-XII grossly intact, There are no obvious motor or sensory deficits. Coordination appears grossly intact. Speech is normal. Skin: Skin is warm and dry and no rashes or lesions are noted. Psychiatric: Cooperative, appropriate mood & affect, normal judgment. Limitations: no limitations Course Vital Signs 09/04/16 09/04/16 10:27 14:32 Temperature 98.7 F 97.7 F Pulse Rate 68 79 Respiratory 18 18 Rate Blood Pressure 123/74 134/69 O2 Sat by Pulse 100 98 Oximetry Medical Decision Making - Medical Decision Making 56-year-old male presenting for abdominal pain. Per review of his records, this has been a chronic issue for him. Per review of his medications he should be taking Prilosec. Per recent discharge instructions he is also recommended to use Tums with flareups of his abdominal pain. Patient states he has not been taking any medications for his abdominal pain. Abdominal exam with mild epigastric tenderness, but no evidence of acute peritonitis. Lab work with grossly stable CBC. BMP stable. LFTs within normal limits. Lipase has some elevation. Patient reevaluated and states he is feeling somewhat improved after medications. Updated on results. Discussed hyperglycemia, pt states he is taking and has his insulin at home. Does not appear in DKA at this time. Discussed mild elevation of his lipase this time. Given his chronic and recurrent abdominal pain that is similar to this, there is lower suspicion of acute pancreatitis. However I discussed plan to resume his medication, he is requesting prescription for Prilosec. We discussed that he also needs GI follow -up for repeat EGD. I did discuss that I want him to follow-up with his primary doctor tomorrow for reevaluation and for repeat lipase testing. Patient was given food which he tolerated without issue. Discussed concerning signs symptoms for immediate return to the emergency room. I called and discussed with the nurse practitioner in Dr. Emanuel's office. She knows the patient well. States they would be happy to see the patient tomorrow. They state he has also been present at their office multiple times recently, but has not stayed long enough to have an appointment. - Lab Data Result diagrams: 09/04/16 12:44 09/04/16 12:44 Lab Results 09/04/16 09/04/16 Range/Units 12:44 12:44 WBC 3.1 L (3.8-10.6) k/uL RBC 3.89 L (4.30-5.90) m/uL Hgb 12.5 L (13.0-17.5) gm/dL Hct 38.6 L (39.0-53.0) % MCV 99.1 (80.0-100.0) fL MCH 32.1 (25.0-35.0) pg MCHC 32.4 (31.0-37.0) g/dL RDW 14.2 (11.5-15.5) % Plt Count 256 (150-450) k/uL Neutrophils % 32 % Lymphocytes % 54 % Monocytes % 5 % Eosinophils % 4 % Basophils % 1 % Neutrophils # 1.0 L (1.3-7.7) k/uL Lymphocytes # 1.6 (1.0-4.8) k/uL Monocytes # 0.2 (0-1.0) k/uL Eosinophils # 0.1 (0-0.7) k/uL Basophils # 0.0 (0-0.2) k/uL Sodium 136 L (137-145) mmol/L Potassium 4.3 (3.5-5.1) mmol/L Chloride 100 (98-107) mmol/L Carbon Dioxide 27 (22-30) mmol/L Anion Gap 9 mmol/L BUN 15 (9-20) mg/dL Creatinine 1.04 (0.66-1.25) mg/dL Est GFR (MDRD) Af Amer >60 (>60 ml/min/1.73 sqM) Est GFR (MDRD) Non-Af >60 (>60 ml/min/1.73 sqM) Glucose 333 H (74-99) mg/dL Calcium 9.1 (8.4-10.2) mg/dL Total Bilirubin 0.9 (0.2-1.3) mg/dL AST 24 (17-59) U/L ALT 46 (21-72) U/L Alkaline Phosphatase 106 (38-126) U/L Total Protein 6.8 (6.3-8.2) g/dL Albumin 3.7 (3.5-5.0) g/dL Lipase 467 H (23-300) U/L Disposition Clinical Impression: Nonspecific abdominal pain, Hyperglycemia, Elevated lipase Disposition: HOME SELF-CARE Condition: Stable Instructions: Abdominal Pain (ED) Additional Instructions: Follow up with your primary doctor's office tomorrow for reevaluation and repeat testing of your lipase. Prescriptions: Omeprazole [PriLOSEC] 40 mg PO AC-BRKFST #30 capsule.dr Referrals: Sofia Emanuel MD [Primary Care Provider] - 1-2 days Time of Disposition: 14:22
[2016-09-04] MEDS ORDERED: MAG HYDROX/AL HYDROX/SIMETH 30 ML CUP PO STA (11:18)
[2016-09-04] MEDS ORDERED: PANTOPRAZOLE 40 MG TABLET PO STA (11:18)
[2016-09-04] MEDS ORDERED: LIDOCAINE VISCOUS 2% 15 ML CUP MUCOUS MEM ONE (11:18)
[2016-09-04 12:56] LABS: Basophils % (A) 1 %; CH 31.6; Eosinophils # (A) 0.1 k/uL (0-0.7); Eosinophils % (A) 4 %; HCT 38.6 % (39.0-53.0); HGB 12.5 gm/dL (13.0-17.5); Luc # (Auto) 0.13; Luc % (Auto) 4; Lymphocytes # (A) 1.6 k/uL (1.0-4.8); Lymphocytes % (A) 54 %; MCH 32.1 pg (25.0-35.0); MCHC 32.4 g/dL (31.0-37.0); MCV 99.1 fL (80.0-100.0); Mean Platelet Volume 7.7; Monocytes # (A) 0.2 k/uL (0-1.0); Monocytes % (A) 5 %; Neutrophils % (A) 32 %; RBC 3.89 m/uL (4.30-5.90); RDW 14.2 % (11.5-15.5); WBC 3.1 k/uL (3.8-10.6); WBC (Perox) 3.24
[2016-09-04 13:10] LABS: ALT 46 U/L (21-72); AST 24 U/L (17-59); Alkaline Phosphatase 106 U/L (38-126); Anion Gap 9 mmol/L; Blood Urea Nitrogen 15 mg/dL (9-20); Calcium 9.1 mg/dL (8.4-10.2); Carbon Dioxide 27 mmol/L (22-30); Chloride 100 mmol/L (98-107); Glucose 333 mg/dL (74-99); Non-African American GFR(MDRD) >60 (>60 ml/min/1.73 sqM); Potassium 4.3 mmol/L (3.5-5.1); Sodium 136 mmol/L (137-145); Total Bilirubin 0.9 mg/dL (0.2-1.3); Total Protein 6.8 g/dL (6.3-8.2)
[2016-09-04 14:33] VITALS: BP 134/69; PULSE 79; TEMP 97.7
== END 2016-09-04 14:33 | disposition home or self-care (01) ==
LOC: EC 10:14
DX: R10.13 Epigastric pain (principal); R73.9 Hyperglycemia, unspecified; R74.8 Abnormal levels of other serum enzymes; I10 Essential (primary) hypertension; Z79.899 Other long term (current) drug therapy; Z87.448 Personal history of other diseases of urinary system
CPT/HCPCS: 36415; 80053; 83690; 85025; 99284

== ENCOUNTER 2016-09-06 13:43 | Emergency (ER) | payer OTHER ==
[2016-09-06 14:20] VITALS: BP 167/79; PULSE 80; RESP 20; TEMP 98.2
--- NOTE | 2016-09-06 14:27 | ED ---
Recheck HPI - General Chief Complaint: Recheck/Abnormal Lab/Rx Stated Complaint: low blood sugar Time Seen by Provider: 09/06/16 14:21 Source: patient, EMS, RN notes reviewed Mode of arrival: EMS Limitations: no limitations - History of Present Illness Initial Comments: 56-year-old male presents emergency Department chief complaint hypoglycemia. Patient states his blood sugar was low earlier. He was given some food and states that he is feeling better. Patient has no abdominal pain. Denies nausea vomiting diarrhea constipation. Patient's blood sugar was 98 by EMS. Patient's blood sugar will be rechecked here. - Related Data Home Medications Medication Instructions Recorded Confirmed Metoprolol Tartrate [Lopressor] 25 mg PO BID 08/05/16 09/04/16 traZODone HCL [Desyrel] 200 mg PO HS 08/05/16 09/04/16 Clotrimazole Cream [Lotrimin Cream] 1 applic TOPICAL BID PRN 08/30/16 09/04/16 Previous Rx's Medication Instructions Recorded Folic Acid 1 mg PO DAILY #30 tablet 07/16/16 Multivitamins, Thera [Multivitamin 1 tab PO DAILY #30 tablet 07/16/16 (formulary)] Thiamine [Vitamin B-1] 100 mg PO DAILY #30 tablet 07/16/16 Lisinopril [Zestril] 10 mg PO DAILY #30 tab 07/25/16 Omeprazole [PriLOSEC] 40 mg PO AC-BRKFST #30 capsule. 07/25/16 Polyethylene Glycol 3350 [Miralax] 17 gm PO DAILY PRN #30 packet 07/25/16 Calcium Carbonate [Tums] 500 mg PO TID #1 chew 09/02/16 Gabapentin [Neurontin] 100 mg PO TID #60 cap 09/02/16 INSULIN LISPRO (humaLOG) [humaLOG 8 unit SQ AC-TID #1 vial 09/02/16 (formulary)] Insulin Glargine [Lantus] 30 unit SQ W/BRKFST #0 09/02/16 Omeprazole [PriLOSEC] 40 mg PO AC-BRKFST #30 capsule. 09/04/16 Allergies Allergy/AdvReac Type Severity Reaction Status Date / Time No Known Allergies Allergy Verified 09/06/16 14:20 Review of Systems ROS Statement: Those systems with pertinent positive or pertinent negative responses have been documented in the HPI. ROS Other: All systems not noted in ROS Statement are negative. Past Medical History Past Medical History: Heart Failure, Diabetes Mellitus, Hypertension, Pneumonia , Renal Disease, Rheumatoid Arthritis (RA), Skin Disorder Additional Past Medical History / Comment(s): Pt recently admitted to [facility] on with acute DKA, metabolic encephalopathy, hyperkalemia and hyponatremia. Other HX: IDDM type I poorly controlled, DKAs, diabetic gastroparesis, bilateral feet/hands peripheral neuropathy, blood behind both eyes, peptic ulcer disease/duodenal ulcer/gastritis with erosions, previous hospitalization for pulmonary edema and bilateral pleural effusion and subsequent evaluation showed a preserved LV function with an ejection fraction of around 50%, CKD stage III, normocytic chronic anemia, rheumatoid arthritis, DJD, chronic back pain, osteoarthritis-generalized, eczema, psoriasis, ear infections, hx of narcotic abuse, cocaine abuse and alcohol abuse. History of Any Multi-Drug Resistant Organisms: MRSA Date of last positivie culture/infection: 02/25/08 MDRO Source:: Neck Past Surgical History: Adenoidectomy, Tonsillectomy Additional Past Surgical History / Comment(s): colonoscopy 2009, EGD, lt great toe amp, and part of 2nd toe. Past Anesthesia/Blood Transfusion Reactions: No Reported Reaction Past Psychological History: No Psychological Hx Reported Additional Psychological History / Comment(s): Pt staying with friends in an apartment last admission-unknown where he is living at this time. Smoking Status: Never smoker Past Alcohol Use History: None Reported Additional Past Alcohol Use History / Comment(s): PT has STATED in PMH that he DRINKS OCC BUT LESS THAN 14 PER WEEK Past Drug Use History: None Reported Additional Drug Use History / Comment(s): PT PMH stated pt DENIES ANY DRUG USE IN AT LEAST 7-8 YEARS. 08/30/16 urine + cocaine. 06/18/16 toxicology + for cocaine. 06/29/16 toxicology + or cocaine. 07/06/16 toxicology + for cocaine. toxicology + cocaine 08/17/16 - Past Family History Father Family Medical History: Diabetes Mellitus, Hypertension Additional Family Medical History / Comment(s): father Mother Additional Family Medical History / Comment(s): pyschiatric issues. General Exam Limitations: no limitations General appearance: alert, in no apparent distress Head exam: Present: atraumatic, normocephalic, normal inspection Respiratory exam: Present: normal lung sounds bilaterally. Absent: respiratory distress, wheezes, rales, rhonchi, stridor Cardiovascular Exam: Present: regular rate, normal rhythm, normal heart sounds. Absent: systolic murmur, diastolic murmur, rubs, gallop, clicks GI/Abdominal exam: Present: soft, normal bowel sounds. Absent: distended, tenderness, guarding, rebound, rigid Neurological exam: Present: alert, oriented X3, CN II-XII intact, reflexes normal. Absent: motor sensory deficit Course Vital Signs 09/06/16 14:17 Temperature 98.2 F Pulse Rate 80 Respiratory 20 Rate Blood Pressure 167/79 O2 Sat by Pulse 100 Oximetry Medical Decision Making - Medical Decision Making 56-year-old male presented for hyperglycemia. Patient's blood sugar was rechecked within normal limits. Patient states that he feels much better. Patient will be discharged. Patient is eating and emergency department. Disposition Clinical Impression: Hypoglycemia Disposition: HOME SELF-CARE Condition: Stable Instructions: Hypoglycemia in a Person with Diabetes (ED) Additional Instructions: Please return to the Emergency Department if symptoms worsen or any other concerns. Referrals: Sofia Emanuel MD [Primary Care Provider] - 1-2 days
[2016-09-06 14:35] LABS: Glucose,Whole Blood 95 mg/dL (75-99)
== END 2016-09-06 14:52 | disposition home or self-care (01) ==
LOC: EC 13:43
DX: E16.2 Hypoglycemia, unspecified (principal); I10 Essential (primary) hypertension; Z79.899 Other long term (current) drug therapy; Z83.3 Family history of diabetes mellitus
CPT/HCPCS: 36415; 99284

== ENCOUNTER 2016-09-18 11:11 | Inpatient (IN) | payer OTHER ==
[2016-09-18] MEDS ORDERED: SODIUM CHLORIDE 0.9% 2,000 ML IV STA (11:21)
[2016-09-18] MEDS ORDERED: HYDROmorphone 1 MG/ML 1 ML SYRINGE IVP STA (12:33)
[2016-09-18] MEDS ORDERED: ONDANSETRON 4 MG/2 ML VIAL IVP STA (12:33)
--- NOTE | 2016-09-18 12:35 | ED ---
Recheck HPI - General Chief Complaint: Recheck/Abnormal Lab/Rx Stated Complaint: diabetic Time Seen by Provider: 09/18/16 11:21 Source: patient, EMS, RN notes reviewed Mode of arrival: EMS Limitations: no limitations - History of Present Illness Initial Comments: 56-year-old male presents emergency department for hyperglycemia, abdominal pain. Patient is a known diabetic has recurrent DKA and well-known emergency department. Patient has chronic abdominal pain. Patient states that he's had some nausea no vomiting no diarrhea no constipation. Patient states that he did take some insulin prior arrival. Accu-Chek was greater than 600. - Related Data Home Medications Medication Instructions Recorded Confirmed Metoprolol Tartrate [Lopressor] 25 mg PO BID 08/05/16 09/18/16 traZODone HCL [Desyrel] 200 mg PO HS 08/05/16 09/18/16 Clotrimazole Cream [Lotrimin Cream] 1 applic TOPICAL BID PRN 08/30/16 09/18/16 Previous Rx's Medication Instructions Recorded Folic Acid 1 mg PO DAILY #30 tablet 07/16/16 Multivitamins, Thera [Multivitamin 1 tab PO DAILY #30 tablet 07/16/16 (formulary)] Thiamine [Vitamin B-1] 100 mg PO DAILY #30 tablet 07/16/16 Lisinopril [Zestril] 10 mg PO DAILY #30 tab 07/25/16 Omeprazole [PriLOSEC] 40 mg PO AC-BRKFST #30 capsule. 07/25/16 Polyethylene Glycol 3350 [Miralax] 17 gm PO DAILY PRN #30 packet 07/25/16 Calcium Carbonate [Tums] 500 mg PO TID #1 chew 09/02/16 Gabapentin [Neurontin] 100 mg PO TID #60 cap 09/02/16 INSULIN LISPRO (humaLOG) [humaLOG 8 unit SQ AC-TID #1 vial 09/02/16 (formulary)] Insulin Glargine [Lantus] 30 unit SQ W/BRKFST #0 09/02/16 Allergies Allergy/AdvReac Type Severity Reaction Status Date / Time No Known Allergies Allergy Verified 09/18/16 11:32 Review of Systems ROS Statement: Those systems with pertinent positive or pertinent negative responses have been documented in the HPI. ROS Other: All systems not noted in ROS Statement are negative. Past Medical History Past Medical History: Heart Failure, Diabetes Mellitus, Hypertension, Pneumonia , Renal Disease, Rheumatoid Arthritis (RA), Skin Disorder Additional Past Medical History / Comment(s): Pt recently admitted to [facility] on with acute DKA, metabolic encephalopathy, hyperkalemia and hyponatremia. Other HX: IDDM type I poorly controlled, DKAs, diabetic gastroparesis, bilateral feet/hands peripheral neuropathy, blood behind both eyes, peptic ulcer disease/duodenal ulcer/gastritis with erosions, previous hospitalization for pulmonary edema and bilateral pleural effusion and subsequent evaluation showed a preserved LV function with an ejection fraction of around 50%, CKD stage III, normocytic chronic anemia, rheumatoid arthritis, DJD, chronic back pain, osteoarthritis-generalized, eczema, psoriasis, ear infections, hx of narcotic abuse, cocaine abuse and alcohol abuse. History of Any Multi-Drug Resistant Organisms: MRSA Date of last positivie culture/infection: 02/25/08 MDRO Source:: Neck Past Surgical History: Adenoidectomy, Tonsillectomy Additional Past Surgical History / Comment(s): colonoscopy 2008, EGD, lt great toe amp, and part of 2nd toe. Past Anesthesia/Blood Transfusion Reactions: No Reported Reaction Past Psychological History: No Psychological Hx Reported Additional Psychological History / Comment(s): Pt staying with friends in an apartment last admission-unknown where he is living at this time. Smoking Status: Never smoker Past Alcohol Use History: None Reported Additional Past Alcohol Use History / Comment(s): PT has STATED in PMH that he DRINKS OCC BUT LESS THAN 14 PER WEEK Past Drug Use History: None Reported Additional Drug Use History / Comment(s): PT PMH stated pt DENIES ANY DRUG USE IN AT LEAST 7-8 YEARS. 08/30/16 urine + cocaine. 06/18/16 toxicology + for cocaine. 06/29/16 toxicology + or cocaine. 07/06/16 toxicology + for cocaine. toxicology + cocaine 08/17/16 - Past Family History Father Family Medical History: Diabetes Mellitus, Hypertension Additional Family Medical History / Comment(s): father Mother Additional Family Medical History / Comment(s): pyschiatric issues. General Exam Limitations: no limitations General appearance: alert, in no apparent distress Respiratory exam: Present: normal lung sounds bilaterally. Absent: respiratory distress, wheezes, rales, rhonchi, stridor Cardiovascular Exam: Present: regular rate, normal rhythm, normal heart sounds. Absent: systolic murmur, diastolic murmur, rubs, gallop, clicks GI/Abdominal exam: Present: soft, tenderness (Moderate epigastric tenderness), normal bowel sounds. Absent: distended, guarding, rebound, rigid Neurological exam: Present: alert, oriented X3, CN II-XII intact Skin exam: Present: warm, dry, intact, normal color. Absent: rash Course Vital Signs 09/18/16 11:15 Temperature 98.9 F Pulse Rate 68 Respiratory 25 H Rate Blood Pressure 113/59 O2 Sat by Pulse 100 Oximetry Medical Decision Making - Lab Data Result diagrams: 09/18/16 12:36 Lab Results 09/18/16 09/18/16 Range/Units 12:36 13:31 Sodium 126 L (137-145) mmol/L Potassium 6.7 H* (3.5-5.1) mmol/L Chloride 91 L (98-107) mmol/L Carbon Dioxide 7 L* (22-30) mmol/L Anion Gap 28 mmol/L BUN 34 H (9-20) mg/dL Creatinine 1.99 H (0.66-1.25) mg/dL Est GFR (MDRD) Af Amer 42 (>60 ml/min/1.73 sqM) Est GFR (MDRD) Non-Af 35 (>60 ml/min/1.73 sqM) Glucose 857 H* (74-99) mg/dL POC Glucose (mg/dL) >600 H (75-99) mg/dL POC Glu Al[employer] Molder ID Ellen Lainez Calcium 9.2 (8.4-10.2) mg/dL Total Bilirubin 0.7 (0.2-1.3) mg/dL AST 21 (17-59) U/L ALT 35 (21-72) U/L Alkaline Phosphatase 120 (38-126) U/L Total Protein 6.5 (6.3-8.2) g/dL Albumin 3.7 (3.5-5.0) g/dL Amylase 62 (30-110) U/L Lipase 51 (23-300) U/L Acetone, Qual Positive (Negative) 09/18/16 13:40 EKG performed at 13:35 normal sinus rhythm with a rate of 74, FL interval 172, QRS duration 90, QT/QTC 410/455 there is no peaked T waves noted Disposition Clinical Impression: DKA (diabetic ketoacidoses), Abdominal pain Disposition: ADMITTED IP TO THIS HOSP Condition: Fair Referrals: Sofia Emanuel MD [Primary Care Provider] - 1-2 days
[2016-09-18 13:11] LABS: ALT 35 U/L (21-72); AST 21 U/L (17-59); Alkaline Phosphatase 120 U/L (38-126); Amylase 62 U/L (30-110); Anion Gap 28 mmol/L; Blood Urea Nitrogen 34 mg/dL (9-20); Calcium 9.2 mg/dL (8.4-10.2); Chloride 91 mmol/L (98-107); Non-African American GFR(MDRD) 35 (>60 ml/min/1.73 sqM); Sodium 126 mmol/L (137-145); Total Bilirubin 0.7 mg/dL (0.2-1.3); Total Protein 6.5 g/dL (6.3-8.2)
[2016-09-18 13:24] LABS: Glucose 857 mg/dL (74-99)
[2016-09-18 13:25] LABS: Basophils # (A) 0.1 k/uL (0-0.2); Basophils % (A) 1 %; CH 30.9; CHCM 29.1; Carbon Dioxide 7 mmol/L (22-30); Eosinophils % (A) 1 %; HCT 41.9 % (39.0-53.0); HDW 2.63; HGB 12.6 gm/dL (13.0-17.5); Hypochromasia Marked; Luc # (Auto) 0.11; Luc % (Auto) 3; Lymphocytes # (A) 1.1 k/uL (1.0-4.8); Lymphocytes % (A) 31 %; MCH 32.1 pg (25.0-35.0); MCHC 30.1 g/dL (31.0-37.0); Macrocytosis Moderate; Monocytes # (A) 0.3 k/uL (0-1.0); Monocytes % (A) 8 %; Neutrophils % (A) 56 %; Potassium 6.7 mmol/L (3.5-5.1); RBC 3.92 m/uL (4.30-5.90); RDW 13.5 % (11.5-15.5); WBC 3.5 k/uL (3.8-10.6); WBC (Perox) 3.23
[2016-09-18] MEDS ORDERED: INSULIN REGULAR BOLUS (FROM DRIP BAG) IV ONE (13:25)
[2016-09-18 13:33] LABS: Glucose,Whole Blood >600 mg/dL (75-99)
[2016-09-18] MEDS: INSULIN REGULAR 100 UNIT in SODIUM CHLORIDE 0.9% 100 ML IV SCH ×2 (13:37→20:32)
[2016-09-18 13:44] LABS: MCV 106.8 fL (80.0-100.0)
[2016-09-18 14:35] LABS: Glucose,Whole Blood >600 mg/dL (75-99)
[2016-09-18 15:58] LABS: Phosphorous 5.9 mg/dL (2.5-4.5)
[2016-09-18 16:02] LABS: Glucose,Whole Blood 537 mg/dL (75-99)
[2016-09-18] MEDS: SODIUM CHLORIDE 0.9% 1,000 ML IV SCH ×2 (17:38→19:32)
[2016-09-18 18:12] LABS: Glucose,Whole Blood 407 mg/dL (75-99)
[2016-09-18 19:06] LABS: Glucose,Whole Blood 392 mg/dL (75-99)
[2016-09-18 19:33] LABS: Phosphorous 3.9 mg/dL (2.5-4.5); Potassium 4.4 mmol/L (3.5-5.1)
[2016-09-18 19:45] LABS: Glucose,Whole Blood 342 mg/dL (75-99)
[2016-09-18 20:47] LABS: Glucose,Whole Blood 282 mg/dL (75-99)
[2016-09-18] MEDS ORDERED: D5-0.45% NACL WITH KCL 20MEQ/L 1,000 ML IV SCH (21:00)
[2016-09-18 21:57] LABS: Glucose,Whole Blood 249 mg/dL (75-99)
[2016-09-18 22:13] LABS: Appearance,Urine Clear (Clear); Bilirubin,Urine Negative (Negative); Glucose,Urine (UA) 4+ (Negative); Leukocyte Esterase,Urine Negative (Negative); Nitrite,Urine Negative (Negative); Protein,Urine Negative (Negative); Specific Gravity,Urine 1.015 (1.001-1.035); UA Billing (MACRO vs. MICRO) CHEM; Urobilinogen,Urine <2.0 mg/dL (<2.0)
--- NOTE | 2016-09-18 22:19 | CONS ---
DATE OF CONSULTATION: 09/18/2016 REASON FOR CONSULTATION: ICU care. HISTORY OF PRESENTING ILLNESS: Mr. Rigo Krueger is a 56-year-old with a long-standing history of type 1 diabetes mellitus. This patient came into the hospital and presented to the emergency department with profound metabolic acidosis related to DKA. Patient is lethargic, poorly responsive but arousable, though, on deep stimulation. Patient of note has been recently hospitalized at [facility] about 4 to 6 weeks ago with similar problems. He presented this time with intermittent abdominal pain which was worse than before and not feeling well. Patient did have some nausea; however, denies any vomiting or diarrhea. Patient did check his blood sugar at home, which was over 600. With those problems he decided to come into the emergency department for further evaluation, intervention and treatment. Past medical history is significant for: 1. Type 1 diabetes mellitus. 2. Mood disorder, depression. 3. Hypertension, hypertensive cardiovascular disease. 4. History of prior pneumonia. 5. Renal disease. 6. Chronic rheumatoid arthritis. 7. Patient also has problems associated with chronic peripheral neuropathy. 8. Prior multiple DKA. 9. Diabetic gastropathy. 10. History of retinal detachment in the past. 11. Borderline cardiomyopathy with ejection fraction of about 60% with chronic systolic heart failure. 12. Chronic back pain. 13. Eczema. 14. Psoriasis. 15. History of narcotic use in the past. 16. History of cocaine. 17. History of alcohol consumption. Past surgical history is significant for: 1. Tonsillectomy. 2. Adenoidectomy. 3. EGD. 4. Colonoscopy. 5. Amputation of the left great toe as well as the second toe. Medications at home include: 1. Metoprolol 25 mg p.o. 2 times a day. 2. Trazodone 200 mg daily. 3. Lotrimin cream as needed. 4. Folic acid 1 mg daily. 5. Multivitamin 1 daily. 6. Thiamine 100 mg daily. 7. Zestril 10 mg daily. 8. Omeprazole 40 mg daily. 9. TUMS. 10. Neurontin 100 mg 3 times a day. 11. Sliding scale insulin. 12. Lantus 30 units. FAMILY HISTORY AND SOCIAL HISTORY: As dictated above, significant for substance use, including cocaine and marijuana. Strong history of cardiovascular disease and diabetes on paternal side with history of psychiatric problems and issues on maternal side. His current medications while in the hospital include: 1. IV fluid as per protocol for DKA. 2. Dilaudid for pain control as needed. On examination, his most recent vitals include blood pressure 94/44, respiratory rate 16 to 18, heart rate 60, temperature 98, saturation 96% on room air. HEENT EXAMINATION: Atraumatic, normocephalic. Pharynx is clear. Narrow pharyngeal opening is present. Oral mucosa is on the dry side. NECK: Supple without any lymphadenopathy. Neck veins are prominent, but no significant jugular venous distention is present. No thyromegaly. LUNGS: Good air entry is present without any significant rales, rhonchi or rub. HEART: Regular rate, rhythm. S1, S2 audible. ABDOMEN: Soft, slightly distended. No rebound or rigidity is present. Bowel sounds are present. No significant organomegaly. EXTREMITIES: Plus one peripheral pulses. NEUROLOGICAL EXAMINATION: Somnolent but arousable. Moving all 4 extremities. Fairly within normal limits. Laboratory data reviewed. The white cell count is 3500, hemoglobin 12, hematocrit 41, platelet count 273,000. Sodium is 132, potassium 5.0. BUN and creatinine are 35 and 2.1. CO2 level is 10. GFR is 40. Glucose 407. LFTs are within normal limits. Acetone is positive. Amylase and lipase within normal limits. EKG performed in the emergency department revealed normal sinus rhythm. IMPRESSION: 1. Abdominal pain, chronic in nature, related to diabetic ketoacidosis. 2. Diabetic ketoacidosis with severe hyperglycemia and electrolyte imbalance with hyponatremia and borderline hyperkalemia 3. Acute on chronic renal failure, stage III. 4. History of substance use in the past. PLAN AND RECOMMENDATIONS: Aggressive fluid resuscitation. Monitor and observe patient closely in the ICU. Patient has been as per protocol for DKA. Repeat labs tomorrow. Replace electrolytes as tolerated. After aggressive fluid resuscitation, will repeat the labs, especially the renal functions. Patient has been counseled about smoking cessation and substance use. Will follow clinical course closely. Further recommendations pending. Plan of care as per clinical response of the patient.
[2016-09-18 22:25] LABS: Ketones,Urine 2+ (Negative)
[2016-09-18 23:26] LABS: Glucose,Whole Blood 172 mg/dL (75-99)
[2016-09-19 00:06] LABS: Glucose,Whole Blood 147 mg/dL (75-99)
[2016-09-19 00:11] LABS: Calcium 8.8 mg/dL (8.4-10.2); Potassium 3.7 mmol/L (3.5-5.1)
[2016-09-19] MEDS ORDERED: INSULIN NPH 300 UNIT/3 ML VIAL SQ ONE (00:57)
[2016-09-19] MEDS ORDERED: INSULIN GLARGINE 100 UNIT/ML 10 ML VIAL SQ SCH (01:00)
[2016-09-19] MEDS ORDERED: SODIUM CHLORIDE 0.9% 1,000 ML IV SCH (01:15)
[2016-09-19 01:18] LABS: Glucose,Whole Blood 93 mg/dL (75-99)
[2016-09-19 01:56] LABS: Glucose,Whole Blood 108 mg/dL (75-99)
[2016-09-19 02:36] LABS: Glucose,Whole Blood 129 mg/dL (75-99)
[2016-09-19] MEDS: INSULIN LISPRO (humaLOG) 300 UNIT/3 ML VIAL SQ SCH ×2 (03:29→07:24)
[2016-09-19] MEDS ORDERED: ACETAMINOPHEN TAB 325 MG TAB PO PRN (03:54)
--- NOTE | 2016-09-19 07:17 | HP ---
DATE OF ADMISSION: CHIEF COMPLAINT: Diabetic ketoacidosis. HISTORY OF PRESENT ILLNESS: This is another admission for this 56-year-old -English male with long-standing poorly controlled insulin-dependent diabetes mellitus. He frequently comes in with DKA after not taking his insulin. He came in with a blood sugar of over 800 and at the present time is very lethargic. He has not been vomiting. REVIEW OF SYSTEMS: Cannot be obtained. Past medical history, family history and personal and social cannot be obtained. PHYSICAL EXAMINATION: Blood pressure is 94/44 with a pulse of 108, respirations 35. He is afebrile. GENERAL: He appeared to be very dehydrated and very lethargic. Head, ears, eyes, nose, mouth, and throat were normal. The pupils equal, round, and sluggishly reactive. Gaze is conjugate. Ears were clear. Nose, mouth, and throat were normal except for dryness of the mucous membranes. Breath sounds are heard in both sides. Cardiac exam demonstrated sinus rhythm with no murmurs. The abdomen is soft and there are no masses. Extremities are normal. Neurologically, he is lethargic. He is admitted to the hospital with diagnoses: 1. Diabetic ketoacidosis. 2. History of alcohol abuse. PLAN: 1. Bed rest. 2. IV fluids. 3. Insulin drip. 4. Rehydrate and recover normal electrolyte function.
[2016-09-19 07:25] LABS: Glucose,Whole Blood 135 mg/dL (75-99)
[2016-09-19] MEDS ORDERED: INSULIN LISPRO (humaLOG) 300 UNIT/3 ML VIAL SQ SCH (07:30)
[2016-09-19 08:34] VITALS: BP 131/69; PULSE 71; RESP 16; TEMP 98.2
--- NOTE | 2016-09-19 09:28 | P.PN ---
Progress Note - Text A 56-year-old admitted to the emergency room who reportedly was experiencing nausea no vomiting no diarrhea. Patient has been admitted for reoccurring episodes of dka and is well known to the emergency room department. Dr. Blnaca upon entering the patient's room the patient yelled out get out of my room I do not want to see you want N my room get out here " Dr. Blanca indicated the patient could be discharged The above dictated assessment and findings were discussed with dr blanca Impression and the plan of care have been dictated as directed. Bri Melendez nurse practitioner acting as a scribe for dr blanca
[2016-09-19] MEDS ORDERED: SUMAtriptan SUCCINATE 50 MG TAB PO STA (09:38)
--- NOTE | 2016-09-20 07:32 | PN ---
CHIEF COMPLAINT: DKA. HISTORY OF PRESENT ILLNESS: This gentleman is doing well and he is awake and alert. He is demanding pain medication which will be refused because he has a drug problem and he will be discharged. He refuses an examination. IMPRESSION: 1. Diabetic ketoacidosis . 2. Narcotic abuser. PLAN: Discharge and this will be arranged by the nurse practitioner.
== END 2016-09-19 10:51 | disposition home health service (06) | DRG 638 ==
LOC: EC 11:11 → 6ICU 13:59 → 4MS4W 09-19 02:16
PROVIDERS: ADMIT Family Medicine; ATTEND Family Medicine
DX: E10.10 Type 1 diabetes mellitus with ketoacidosis without coma (principal); I50.22 Chronic systolic (congestive) heart failure; I42.9 Cardiomyopathy, unspecified; K31.84 Gastroparesis; N17.9 Acute kidney failure, unspecified; I13.0 Hypertensive heart and chronic kidney disease with heart failure and stage 1 through stage 4 chronic kidney disease, or unspecified chronic kidney disease; E87.1 Hypo-osmolality and hyponatremia; E87.5 Hyperkalemia; E10.42 Type 1 diabetes mellitus with diabetic polyneuropathy; N18.3 Chronic kidney disease, stage 3 (moderate); E10.22 Type 1 diabetes mellitus with diabetic chronic kidney disease; E10.43 Type 1 diabetes mellitus with diabetic autonomic (poly)neuropathy; F11.10 Opioid abuse, uncomplicated; F32.9 Major depressive disorder, single episode, unspecified; F10.10 Alcohol abuse, uncomplicated; M06.9 Rheumatoid arthritis, unspecified; L30.9 Dermatitis, unspecified; L40.9 Psoriasis, unspecified; G89.29 Other chronic pain; M54.9 Dorsalgia, unspecified; M19.91 Primary osteoarthritis, unspecified site; K31.9 Disease of stomach and duodenum, unspecified; Z87.01 Personal history of pneumonia (recurrent); Z89.412 Acquired absence of left great toe; Z89.422 Acquired absence of other left toe(s); Z83.3 Family history of diabetes mellitus; Z79.4 Long term (current) use of insulin; Z79.899 Other long term (current) drug therapy; Z87.898 Personal history of other specified conditions
CPT/HCPCS: 36415; 80048; 80051; 80053; 80306; 81003; 82009; 82150; 82565; 82947; 83690; 84100; 84520; 85025; 93005

== ENCOUNTER 2016-09-25 09:27 | Emergency (ER) | payer OTHER ==
[2016-09-25 09:35] VITALS: RESP 18
[2016-09-25] MEDS ORDERED: METOPROLOL TARTRATE 25 MG TAB PO STA (09:58)
[2016-09-25] MEDS ORDERED: LISINOPRIL 10 MG TAB PO STA (09:58)
--- NOTE | 2016-09-25 09:58 | ED ---
General Adult HPI - General Chief complaint: Dizziness Stated complaint: Hypoglycemia Time Seen by Provider: 09/25/16 09:47 Source: patient, EMS, RN notes reviewed Mode of arrival: EMS Limitations: no limitations - History of Present Illness Initial comments: Patient is a pleasant 56-year-old male presenting to the emergency Department with low blood sugar. Patient states sometimes his blood sugar does go low. Patient woke up this morning with EMS present. Patient states he feels fine at this time and has no complaints. EMS did provide oral glucose 1 blood sugar was found at 56. - Related Data Home Medications Medication Instructions Recorded Confirmed Metoprolol Tartrate [Lopressor] 25 mg PO BID 08/05/16 09/25/16 traZODone HCL [Desyrel] 200 mg PO HS 08/05/16 09/25/16 Clotrimazole Cream [Lotrimin Cream] 1 applic TOPICAL BID PRN 08/30/16 09/25/16 Previous Rx's Medication Instructions Recorded Folic Acid 1 mg PO DAILY #30 tablet 07/16/16 Multivitamins, Thera [Multivitamin 1 tab PO DAILY #30 tablet 07/16/16 (formulary)] Thiamine [Vitamin B-1] 100 mg PO DAILY #30 tablet 07/16/16 Lisinopril [Zestril] 10 mg PO DAILY #30 tab 07/25/16 Omeprazole [PriLOSEC] 40 mg PO AC-BRKFST #30 capsule.dr 07/25/16 Polyethylene Glycol 3350 [Miralax] 17 gm PO DAILY PRN #30 packet 07/25/16 Calcium Carbonate [Tums] 500 mg PO TID #1 chew 09/02/16 Gabapentin [Neurontin] 100 mg PO TID #60 cap 09/02/16 INSULIN LISPRO (humaLOG) [humaLOG 8 unit SQ AC-TID #1 vial 09/02/16 (formulary)] Insulin Glargine [Lantus] 30 unit SQ W/BRKFST #0 09/02/16 Allergies Allergy/AdvReac Type Severity Reaction Status Date / Time No Known Allergies Allergy Verified 09/25/16 10:32 Review of Systems ROS Statement: Those systems with pertinent positive or pertinent negative responses have been documented in the HPI. ROS Other: All systems not noted in ROS Statement are negative. Constitutional: Denies: fever Eyes: Denies: eye pain ENT: Denies: ear pain Respiratory: Denies: cough Cardiovascular: Denies: chest pain Endocrine: Denies: fatigue Gastrointestinal: Reports: abdominal pain (Chronic, no change) Genitourinary: Denies: urgency Musculoskeletal: Denies: back pain Skin: Denies: rash Neurological: Denies: weakness Past Medical History Past Medical History: Heart Failure, Diabetes Mellitus, Hypertension, Pneumonia , Renal Disease, Rheumatoid Arthritis (RA), Skin Disorder Additional Past Medical History / Comment(s): IDDM poorly controlled, DKAs, diabetic gastroparesis, bilateral feet/hands peripheral neuropathy, blood behind both eyes, peptic ulcer disease/duodenal ulcer/gastritis with erosions, previous hospitalization for pulmonary edema and bilateral pleural effusion and subsequent evaluation showed a preserved LV function with an ejection fraction of around 50%, CKD stage III, normocytic chronic anemia, rheumatoid arthritis, DJD, chronic back pain, osteoarthritis-generalized, eczema, psoriasis, ear infections, hx of narcotic abuse, cocaine abuse and alcohol abuse. History of Any Multi-Drug Resistant Organisms: MRSA Date of last positivie culture/infection: 02/25/08 MDRO Source:: Neck Past Surgical History: Adenoidectomy, Tonsillectomy Additional Past Surgical History / Comment(s): colonoscopy 2009, EGD, lt great toe amp, and part of 2nd toe. Past Anesthesia/Blood Transfusion Reactions: No Reported Reaction Past Psychological History: No Psychological Hx Reported Additional Psychological History / Comment(s): PT STTED HE LIVES ALONE IN AN APT ,NO PETS. NO OUTSIDE SERVICES CURRENTLY. 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 Smoking Status: Never smoker Past Alcohol Use History: None Reported Additional Past Alcohol Use History / Comment(s): PT has STATED that he DRINKS OCC BUT LESS THAN 14 PER WEEK Past Drug Use History: None Reported Additional Drug Use History / Comment(s): PT PMH stated pt DENIES ANY DRUG USE IN AT LEAST 7-8 YEARS. 08/30/16 urine + cocaine. 06/18/16 toxicology + for cocaine. 06/29/16 toxicology + or cocaine. 07/06/16 toxicology + for cocaine. toxicology + cocaine 08/17/16 - Past Family History Father Family Medical History: Diabetes Mellitus, Hypertension Additional Family Medical History / Comment(s): father Mother Additional Family Medical History / Comment(s): pyschiatric issues. General Exam Limitations: no limitations General appearance: alert, in no apparent distress Head exam: Present: atraumatic Eye exam: Present: normal appearance, PERRL, EOMI ENT exam: Present: normal oropharynx Neck exam: Present: normal inspection Respiratory exam: Absent: normal lung sounds bilaterally Cardiovascular Exam: Present: regular rate, normal rhythm GI/Abdominal exam: Present: soft. Absent: distended, tenderness Extremities exam: Present: normal inspection Neurological exam: Present: alert, CN II-XII intact. Absent: motor sensory deficit Expanded Motor strength exam: RUE: 5, LUE: 5, RLE: 5, LLE: 5 Psychiatric exam: Present: normal affect, normal mood Skin exam: Absent: rash Course Vital Signs 09/25/16 09/25/16 09:30 10:44 Temperature 97 F L Pulse Rate 54 L 65 Respiratory 18 18 Rate Blood Pressure 182/98 180/105 O2 Sat by Pulse 100 100 Oximetry Medical Decision Making - Medical Decision Making Patient did eat. Following this repeat blood sugar 132. Patient symptom-free at this time. Patient recommended several times to follow-up with primary care physician, especially considering multiple ER visits. Patient is advised to decrease his Lantus for the next couple of days from 25 mg to 20 mg and watch his blood sugar. - Lab Data Lab Results 09/25/16 Range/Units 09:43 POC Glucose (mg/dL) 76 (75-99) mg/dL POC Glu General Pediatrician ID Robyn Montano Disposition Clinical Impression: Hypoglycemia Disposition: HOME SELF-CARE Condition: Stable Instructions: Hypoglycemia in a Person with Diabetes (ED) Additional Instructions: Please check her blood sugar frequently, at least 4 times daily over the next few days. Please decrease your evening dose of Lantus from 25 mg to 20 mg. Please do ensure to follow-up with the primary care physician in the next day or 2. This is extremely important for you. Referrals: Sofia Emanuel MD [Primary Care Provider] - 1-2 days Time of Disposition: 10:56
[2016-09-25 10:14] LABS: Glucose,Whole Blood 76 mg/dL (75-99)
[2016-09-25 10:55] LABS: Glucose,Whole Blood 132 mg/dL (75-99)
[2016-09-25 11:01] VITALS: BP 178/95; PULSE 63; TEMP 97.5
== END 2016-09-25 11:00 | disposition home or self-care (01) ==
LOC: EC 09:27
DX: E11.649 Type 2 diabetes mellitus with hypoglycemia without coma (principal); I11.0 Hypertensive heart disease with heart failure; I50.9 Heart failure, unspecified; Z79.899 Other long term (current) drug therapy; Z83.3 Family history of diabetes mellitus
CPT/HCPCS: 36415; 99284

== ENCOUNTER 2016-09-27 06:40 | Emergency (ER) | payer OTHER ==
[2016-09-27] MEDS ORDERED: ONDANSETRON 4 MG/2 ML VIAL IVP STA (07:40)
[2016-09-27] MEDS ORDERED: MORPHINE SULFATE 4 MG/ML SYRINGE IV STA (07:40)
[2016-09-27] MEDS ORDERED: SODIUM CHLORIDE 0.9% 1,000 ML IV STA (07:40)
[2016-09-27] MEDS ORDERED: PANTOPRAZOLE 40 MG/10 ML VIAL IVP STA (07:40)
[2016-09-27 08:13] LABS: Glucose,Whole Blood 62 mg/dL (75-99)
[2016-09-27] MEDS ORDERED: DEXTROSE 50%-WATER 50 ML SYRINGE IVP STA (08:34)
[2016-09-27 08:40] LABS: Glucose,Whole Blood 32 mg/dL (75-99)
--- NOTE | 2016-09-27 08:44 | ED ---
General Adult HPI - General Chief complaint: Recheck/Abnormal Lab/Rx Stated complaint: Low blood sugar Time Seen by Provider: 09/27/16 07:21 Source: patient, RN notes reviewed, old records reviewed Mode of arrival: EMS Limitations: no limitations - History of Present Illness Initial comments: this is a 56-year-old male with ear today for evaluation. Patient presented here for evaluation of lo, decreased appetite, abdominal pain. Patient has history of diabetes, history of multiple hospitalizations for DKA, as emergency room. Patient also states he does have history of pancreatitis, patient denies drugs or alcohol. No fevers. No nausea vomiting or diarrhea.blood sugar - Related Data Home Medications Medication Instructions Recorded Confirmed Metoprolol Tartrate [Lopressor] 25 mg PO BID 08/05/16 09/27/16 traZODone HCL [Desyrel] 200 mg PO HS 08/05/16 09/27/16 Clotrimazole Cream [Lotrimin Cream] 1 applic TOPICAL BID PRN 08/30/16 09/27/16 Previous Rx's Medication Instructions Recorded Folic Acid 1 mg PO DAILY #30 tablet 07/16/16 Multivitamins, Thera [Multivitamin 1 tab PO DAILY #30 tablet 07/16/16 (formulary)] Thiamine [Vitamin B-1] 100 mg PO DAILY #30 tablet 07/16/16 Lisinopril [Zestril] 10 mg PO DAILY #30 tab 07/25/16 Omeprazole [PriLOSEC] 40 mg PO AC-BRKFST #30 capsule. 07/25/16 Polyethylene Glycol 3350 [Miralax] 17 gm PO DAILY PRN #30 packet 07/25/16 Calcium Carbonate [Tums] 500 mg PO TID #1 chew 09/02/16 Gabapentin [Neurontin] 100 mg PO TID #60 cap 09/02/16 INSULIN LISPRO (humaLOG) [humaLOG 8 unit SQ AC-TID #1 vial 09/02/16 (formulary)] Insulin Glargine [Lantus] 30 unit SQ W/BRKFST #0 09/02/16 Allergies Allergy/AdvReac Type Severity Reaction Status Date / Time No Known Allergies Allergy Verified 09/27/16 07:32 Review of Systems ROS Statement: Those systems with pertinent positive or pertinent negative responses have been documented in the HPI. ROS Other: All systems not noted in ROS Statement are negative. Past Medical History Past Medical History: Heart Failure, Diabetes Mellitus, Hypertension, Pneumonia , Renal Disease, Rheumatoid Arthritis (RA), Skin Disorder Additional Past Medical History / Comment(s): IDDM poorly controlled, DKAs, diabetic gastroparesis, bilateral feet/hands peripheral neuropathy, blood behind both eyes, peptic ulcer disease/duodenal ulcer/gastritis with erosions, previous hospitalization for pulmonary edema and bilateral pleural effusion and subsequent evaluation showed a preserved LV function with an ejection fraction of around 50%, CKD stage III, normocytic chronic anemia, rheumatoid arthritis, DJD, chronic back pain, osteoarthritis-generalized, eczema, psoriasis, ear infections, hx of narcotic abuse, cocaine abuse and alcohol abuse. History of Any Multi-Drug Resistant Organisms: MRSA Date of last positivie culture/infection: 02/25/08 MDRO Source:: Neck Past Surgical History: Adenoidectomy, Tonsillectomy Additional Past Surgical History / Comment(s): colonoscopy 2008, EGD, lt great toe amp, and part of 2nd toe. Past Anesthesia/Blood Transfusion Reactions: No Reported Reaction Past Psychological History: No Psychological Hx Reported Additional Psychological History / Comment(s): PT STTED HE LIVES ALONE IN AN APT ,NO PETS. NO OUTSIDE SERVICES CURRENTLY. 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 Smoking Status: Never smoker Past Alcohol Use History: None Reported Additional Past Alcohol Use History / Comment(s): PT has STATED that he DRINKS OCC BUT LESS THAN 14 PER WEEK Past Drug Use History: None Reported Additional Drug Use History / Comment(s): PT PMH stated pt DENIES ANY DRUG USE IN AT LEAST 7-8 YEARS. 08/30/16 urine + cocaine. 06/18/16 toxicology + for cocaine. 06/29/16 toxicology + or cocaine. 07/06/16 toxicology + for cocaine. toxicology + cocaine 08/17/16 - Past Family History Father Family Medical History: Diabetes Mellitus, Hypertension Additional Family Medical History / Comment(s): father Mother Additional Family Medical History / Comment(s): pyschiatric issues. General Exam Limitations: no limitations General appearance: alert, in no apparent distress Head exam: Present: atraumatic, normocephalic, normal inspection Eye exam: Present: normal appearance, PERRL, EOMI. Absent: scleral icterus, conjunctival injection, periorbital swelling ENT exam: Present: normal exam, mucous membranes moist Neck exam: Present: normal inspection. Absent: tenderness, meningismus, lymphadenopathy Respiratory exam: Present: normal lung sounds bilaterally. Absent: respiratory distress, wheezes, rales, rhonchi, stridor Cardiovascular Exam: Present: regular rate, normal rhythm, normal heart sounds. Absent: systolic murmur, diastolic murmur, rubs, gallop, clicks GI/Abdominal exam: Present: soft, normal bowel sounds. Absent: distended, tenderness, guarding, rebound, rigid Extremities exam: Present: normal inspection, full ROM, normal capillary refill. Absent: tenderness, pedal edema, joint swelling, calf tenderness Back exam: Present: normal inspection Neurological exam: Present: alert, oriented X3, CN II-XII intact Psychiatric exam: Present: normal affect, normal mood Skin exam: Present: warm, dry, intact, normal color. Absent: rash Course Vital Signs 09/27/16 09/27/16 09/27/16 06:44 08:38 09:51 Temperature 98.3 F 97.7 F Pulse Rate 66 66 65 Respiratory 18 16 18 Rate Blood Pressure 163/82 161/97 163/86 O2 Sat by Pulse 99 100 100 Oximetry Medical Decision Making - Medical Decision Making 56 now ER for evaluation of hypoglycemia, patient is able to eat, no acute distress, blood sugar is normal patient can be discharged home - Lab Data Result diagrams: 09/27/16 08:16 09/27/16 08:16 Lab Results 09/27/16 09/27/16 09/27/16 Range/Units 06:43 08:16 08:16 WBC 3.3 L (3.8-10.6) k/uL RBC 3.69 L (4.30-5.90) m/uL Hgb 11.3 L (13.0-17.5) gm/dL Hct 36.6 L (39.0-53.0) % MCV 99.3 D (80.0-100.0) fL MCH 30.7 (25.0-35.0) pg MCHC 30.9 L (31.0-37.0) g/dL RDW 14.9 (11.5-15.5) % Plt Count 216 (150-450) k/uL Neutrophils % 33 % Lymphocytes % 47 % Monocytes % 8 % Eosinophils % 8 % Basophils % 1 % Neutrophils # 1.1 L (1.3-7.7) k/uL Lymphocytes # 1.5 (1.0-4.8) k/uL Monocytes # 0.3 (0-1.0) k/uL Eosinophils # 0.3 (0-0.7) k/uL Basophils # 0.0 (0-0.2) k/uL Macrocytosis Slight Sodium 141 (137-145) mmol/L Potassium 4.0 (3.5-5.1) mmol/L Chloride 110 H (98-107) mmol/L Carbon Dioxide 25 (22-30) mmol/L Anion Gap 6 mmol/L BUN 23 H (9-20) mg/dL Creatinine 1.06 (0.66-1.25) mg/dL Est GFR (MDRD) Af Amer >60 (>60 ml/min/1.73 sqM) Est GFR (MDRD) Non-Af >60 (>60 ml/min/1.73 sqM) Glucose 48 L* (74-99) mg/dL POC Glucose (mg/dL) 62 L (75-99) mg/dL POC Glu Hot Metal Mixer Operator ID Lynda Dowell Calcium 8.4 (8.4-10.2) mg/dL Total Bilirubin 0.3 (0.2-1.3) mg/dL AST 33 (17-59) U/L ALT 36 (21-72) U/L Alkaline Phosphatase 75 (38-126) U/L Total Protein 5.9 L (6.3-8.2) g/dL Albumin 3.0 L (3.5-5.0) g/dL Amylase 71 (30-110) U/L Lipase 85 (23-300) U/L Serum Alcohol mg/dL 09/27/16 09/27/16 09/27/16 Range/Units 08:16 08:31 09:17 WBC (3.8-10.6) k/uL RBC (4.30-5.90) m/uL Hgb (13.0-17.5) gm/dL Hct (39.0-53.0) % MCV (80.0-100.0) fL MCH (25.0-35.0) pg MCHC (31.0-37.0) g/dL RDW (11.5-15.5) % Plt Count (150-450) k/uL Neutrophils % % Lymphocytes % % Monocytes % % Eosinophils % % Basophils % % Neutrophils # (1.3-7.7) k/uL Lymphocytes # (1.0-4.8) k/uL Monocytes # (0-1.0) k/uL Eosinophils # (0-0.7) k/uL Basophils # (0-0.2) k/uL Macrocytosis Sodium (137-145) mmol/L Potassium (3.5-5.1) mmol/L Chloride (98-107) mmol/L Carbon Dioxide (22-30) mmol/L Anion Gap mmol/L BUN (9-20) mg/dL Creatinine (0.66-1.25) mg/dL Est GFR (MDRD) Af Amer (>60 ml/min/1.73 sqM) Est GFR (MDRD) Non-Af (>60 ml/min/1.73 sqM) Glucose (74-99) mg/dL POC Glucose (mg/dL) 32 L 91 (75-99) mg/dL POC Glu Hot Metal Mixer Operator Daylin Irving Jackelyn Calcium (8.4-10.2) mg/dL Total Bilirubin (0.2-1.3) mg/dL AST (17-59) U/L ALT (21-72) U/L Alkaline Phosphatase (38-126) U/L Total Protein (6.3-8.2) g/dL Albumin (3.5-5.0) g/dL Amylase (30-110) U/L Lipase (23-300) U/L Serum Alcohol <10 mg/dL - Radiology Data Radiology results: report reviewed (X-ray KUB is negative for acute disease), image reviewed Disposition Clinical Impression: Hypoglycemia Disposition: HOME SELF-CARE Condition: Good Instructions: Hypoglycemia in a Person with Diabetes (ED) Referrals: None,Stated [Primary Care Provider] - 1-2 days
[2016-09-27 08:49] LABS: Basophils % (A) 1 %; CH 31.5; CHCM 31.9; Eosinophils # (A) 0.3 k/uL (0-0.7); Eosinophils % (A) 8 %; HCT 36.6 % (39.0-53.0); HDW 2.61; HGB 11.3 gm/dL (13.0-17.5); Luc # (Auto) 0.11; Luc % (Auto) 3; Lymphocytes # (A) 1.5 k/uL (1.0-4.8); Lymphocytes % (A) 47 %; MCH 30.7 pg (25.0-35.0); MCHC 30.9 g/dL (31.0-37.0); Macrocytosis Slight; Mean Platelet Volume 7.6; Monocytes # (A) 0.3 k/uL (0-1.0); Monocytes % (A) 8 %; Neutrophils # (A) 1.1 k/uL (1.3-7.7); Neutrophils % (A) 33 %; RBC 3.69 m/uL (4.30-5.90); RDW 14.9 % (11.5-15.5); WBC 3.3 k/uL (3.8-10.6); WBC (Perox) 3.33
[2016-09-27 08:52] LABS: MCV 99.3 fL (80.0-100.0)
[2016-09-27 08:55] LABS: ALT 36 U/L (21-72); AST 33 U/L (17-59); Alkaline Phosphatase 75 U/L (38-126); Amylase 71 U/L (30-110); Anion Gap 6 mmol/L; Blood Urea Nitrogen 23 mg/dL (9-20); Calcium 8.4 mg/dL (8.4-10.2); Carbon Dioxide 25 mmol/L (22-30); Chloride 110 mmol/L (98-107); Non-African American GFR(MDRD) >60 (>60 ml/min/1.73 sqM); Sodium 141 mmol/L (137-145); Total Bilirubin 0.3 mg/dL (0.2-1.3); Total Protein 5.9 g/dL (6.3-8.2)
--- NOTE | 2016-09-27 09:00 | XR ---
EXAMINATION TYPE: XR KUB DATE OF EXAM: 09/27/2016 8:55 AM COMPARISON: 03/15/2016 HISTORY: Pain TECHNIQUE: Single supine KUB image of the abdomen is obtained FINDINGS: Small bowel demonstrates no evidence for dilatation or air fluid levels. Gas and fecal material is seen in non-distended colon. No convincing evidence for pneumoperitoneum. No unusual calcifications. The lung bases are clear. The osseous structures are intact. IMPRESSION: 1. Overall nonobstructive bowel gas pattern.
[2016-09-27 09:05] LABS: Glucose 48 mg/dL (74-99)
[2016-09-27 09:21] LABS: Glucose,Whole Blood 91 mg/dL (75-99)
[2016-09-27 09:54] VITALS: BP 163/86; PULSE 65; RESP 18; TEMP 97.7
== END 2016-09-27 10:24 | disposition home or self-care (01) ==
LOC: EC 06:40
DX: E11.649 Type 2 diabetes mellitus with hypoglycemia without coma (principal); I11.0 Hypertensive heart disease with heart failure; I50.9 Heart failure, unspecified; Z79.899 Other long term (current) drug therapy; Z83.3 Family history of diabetes mellitus
CPT/HCPCS: 36415; 80053; 82150; 83690; 85025; 80320; 74000; 99284; 96374; 96375 ×3; J2270; J2405; C9113

== ENCOUNTER 2016-10-06 09:19 | Inpatient (IN) | payer OTHER ==
[2016-10-06] MEDS ORDERED: SODIUM CHLORIDE 0.9% 2,000 ML IV STA (09:24)
[2016-10-06 09:35] LABS: Glucose,Whole Blood >600 mg/dL (75-99)
--- NOTE | 2016-10-06 09:39 | ED ---
Abdominal Pain HPI <AnthonyMitul - Last Filed: 10/06/16 10:42> - General Source: patient, EMS, RN notes reviewed Mode of arrival: EMS Limitations: no limitations <Irma Foster - Last Filed: 10/06/16 11:00> - General Chief Complaint: Abdominal Pain Stated Complaint: Hyperglycemia Time Seen by Provider: 10/06/16 09:21 - History of Present Illness Initial Comments: 56-year-old male presents emergency department with a chief complaint of hypoglycemia. Patient states 3 days ago his abdomen started to hurt and he has not taken his insulin in 3 days. Patient states he has not checked his glucose and 3 days. Patient states that he has had nausea vomiting with this. Patient denies any changes in bowel or bladder habits. Patient denies any chest pain or shortness of breath. Patient states that it is his abdomen that hurts. Patient is poor historian and will not provide any other information.Patient denies any recent fever, chills, shortness of breath, chest pain, back pain, numbness or tingling, dysuria or hematuria, constipation or diarrhea, headaches or visual changes, or any other current symptoms. (Irma Foster) - Related Data Home Medications Medication Instructions Recorded Confirmed Metoprolol Tartrate [Lopressor] 25 mg PO BID 08/05/16 10/06/16 traZODone HCL [Desyrel] 200 mg PO HS 08/05/16 10/06/16 Clotrimazole Cream [Lotrimin Cream] 1 applic TOPICAL BID PRN 08/30/16 10/06/16 Famotidine [Pepcid] 40 mg PO HS 10/06/16 10/06/16 Ibuprofen [Motrin] 800 mg PO Q8HR PRN 10/06/16 10/06/16 Previous Rx's Medication Instructions Recorded Folic Acid 1 mg PO DAILY #30 tablet 07/16/16 Multivitamins, Thera [Multivitamin 1 tab PO DAILY #30 tablet 07/16/16 (formulary)] Thiamine [Vitamin B-1] 100 mg PO DAILY #30 tablet 07/16/16 Lisinopril [Zestril] 10 mg PO DAILY #30 tab 07/25/16 Omeprazole [PriLOSEC] 40 mg PO AQUILINO #30 capsule. 07/25/16 Polyethylene Glycol 3350 [Miralax] 17 gm PO DAILY PRN #30 packet 07/25/16 Calcium Carbonate [Tums] 500 mg PO TID #1 chew 09/02/16 Gabapentin [Neurontin] 100 mg PO TID #60 cap 09/02/16 INSULIN LISPRO (humaLOG) [humaLOG 8 unit SQ AC-TID #1 vial 09/02/16 (formulary)] Insulin Glargine [Lantus] 30 unit SQ W/BRKFST #0 09/02/16 Allergies Allergy/AdvReac Type Severity Reaction Status Date / Time No Known Allergies Allergy Verified 10/06/16 09:51 Review of Systems ROS Other: All systems not noted in ROS Statement are negative. <Mitul Cruz - Last Filed: 10/06/16 10:42> ROS Other: All systems not noted in ROS Statement are negative. <Irma Foster - Last Filed: 10/06/16 11:00> ROS Statement: Those systems with pertinent positive or pertinent negative responses have been documented in the HPI. Past Medical History Past Medical History: Heart Failure, Diabetes Mellitus, Hypertension, Pneumonia , Renal Disease, Rheumatoid Arthritis (RA), Skin Disorder Additional Past Medical History / Comment(s): IDDM poorly controlled, DKAs, diabetic gastroparesis, bilateral feet/hands peripheral neuropathy, blood behind both eyes, peptic ulcer disease/duodenal ulcer/gastritis with erosions, previous hospitalization for pulmonary edema and bilateral pleural effusion and subsequent evaluation showed a preserved LV function with an ejection fraction of around 50%, CKD stage III, normocytic chronic anemia, rheumatoid arthritis, DJD, chronic back pain, osteoarthritis-generalized, eczema, psoriasis, ear infections, hx of narcotic abuse, cocaine abuse and alcohol abuse. History of Any Multi-Drug Resistant Organisms: MRSA Date of last positivie culture/infection: 02/25/08 MDRO Source:: Neck Past Surgical History: Adenoidectomy, Tonsillectomy Additional Past Surgical History / Comment(s): colonoscopy 2008, EGD, lt great toe amp, and part of 2nd toe. Past Anesthesia/Blood Transfusion Reactions: No Reported Reaction Past Psychological History: No Psychological Hx Reported Additional Psychological History / Comment(s): PT STTED HE LIVES ALONE IN AN APT ,NO PETS. NO OUTSIDE SERVICES CURRENTLY. 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 Smoking Status: Never smoker Past Alcohol Use History: None Reported Additional Past Alcohol Use History / Comment(s): PT has STATED that he DRINKS OCC BUT LESS THAN 14 PER WEEK Past Drug Use History: None Reported Additional Drug Use History / Comment(s): PT PMH stated pt DENIES ANY DRUG USE IN AT LEAST 7-8 YEARS. 08/30/16 urine + cocaine. 06/18/16 toxicology + for cocaine. 06/29/16 toxicology + or cocaine. 07/06/16 toxicology + for cocaine. toxicology + cocaine 08/17/16 - Past Family History Father Family Medical History: Diabetes Mellitus, Hypertension Additional Family Medical History / Comment(s): father Mother Additional Family Medical History / Comment(s): pyschiatric issues. <Irma Foster - Last Filed: 10/06/16 11:00> General Exam <Mitul Cruz - Last Filed: 10/06/16 10:42> Limitations: no limitations <Irma Foster - Last Filed: 10/06/16 11:00> - General Exam Comments Initial Comments: General: The patient is awake and alert, in no distress, and does not appear acutely ill. Eye: Pupils are equal, round. Ears, nose, mouth and throat: There are moist mucous membranes and no oral lesions. Neck: The neck is supple, there is no tenderness. Cardiovascular: There is a regular rate and rhythm. No murmur, rub or gallop is appreciated. Respiratory: Lungs are clear to auscultation, respirations are non-labored, breath sounds are equal. No wheezes, stridor, rales, or rhonchi. Gastrointestinal: Soft, non-distended, non-tender abdomen without masses or organomegaly noted. There is no rebound or guarding present. No CVA tenderness. Bowel sounds are unremarkable. Back: There is no tenderness to palpation in the midline. There is no obvious deformity. No rashes noted. Musculoskeletal: Normal ROM, no tenderness, There is no pedal edema. There is no calf tenderness or swelling. Sensation intact. Pulses equal bilaterally 2+. Neurological: CN II-XII intact, There are no obvious motor or sensory deficits. Coordination appears grossly intact. Speech is normal. Skin: Skin is warm and dry and no rashes or lesions are noted. Psychiatric: Cooperative, appropriate mood & affect, normal judgment. (Irma Foster) Course <Mitul Cruz - Last Filed: 10/06/16 10:42> <Irma Foster - Last Filed: 10/06/16 11:00> Vital Signs 10/06/16 09:23 Temperature 97.4 F L Pulse Rate 82 Respiratory 20 Rate Blood Pressure 135/63 O2 Sat by Pulse 100 Oximetry - Reevaluation(s) Reevaluation #1: 10/06/16 10:42 I did personally do a [id number] evaluation the patient in do agree with the assessment and plan the patient is demonstrating uncontrolled diabetes he did try to get up by himself and did fall in the hallway dorsal evidence of any injuries. He is awake alert oriented 3. He will be admitted to the hospitalist on-call. (Mitul Cruz) Medical Decision Making - Lab Data Result diagrams: 10/06/16 09:37 10/06/16 09:37 <Mitul Cruz - Last Filed: 10/06/16 10:42> - Lab Data Result diagrams: 10/06/16 09:37 10/06/16 09:37 - EKG Data -: EKG Interpreted by Me - Radiology Data Radiology results: report reviewed, image reviewed <Irma Foster - Last Filed: 10/06/16 11:00> - Medical Decision Making 56-year-old male presents emergency Department chief complaint of nausea and vomiting with abdominal pain and hyperglycemia. At this time the patient does appear to be in DKA. In some protocol was started. Patient will be admitted at this time. Patient will be admitted to on-call hospitalist. Patient agreed with plan. (Irma Foster) - Lab Data Lab Results 10/06/16 10/06/16 10/06/16 Range/Units 09:33 09:37 09:37 WBC 5.3 (3.8-10.6) k/uL RBC 4.34 (4.30-5.90) m/uL Hgb 13.9 (13.0-17.5) gm/dL Hct 45.4 (39.0-53.0) % MCV 104.6 H D (80.0-100.0) fL MCH 32.0 (25.0-35.0) pg MCHC 30.5 L (31.0-37.0) g/dL RDW 13.8 (11.5-15.5) % Plt Count 268 (150-450) k/uL Neutrophils % 35 % Lymphocytes % 55 % Monocytes % 5 % Eosinophils % 2 % Basophils % 1 % Neutrophils # 1.9 (1.3-7.7) k/uL Lymphocytes # 3.0 (1.0-4.8) k/uL Monocytes # 0.3 (0-1.0) k/uL Eosinophils # 0.1 (0-0.7) k/uL Basophils # 0.0 (0-0.2) k/uL Manual Slide Review Performed Hypochromasia Marked Poikilocytosis (manual Present Macrocytosis Slight Sodium 133 L (137-145) mmol/L Potassium 5.3 H (3.5-5.1) mmol/L Chloride 95 L (98-107) mmol/L Carbon Dioxide 10 L* (22-30) mmol/L Anion Gap 28 mmol/L BUN 24 H (9-20) mg/dL Creatinine 1.36 H (0.66-1.25) mg/dL Est GFR (MDRD) Af Amer >60 (>60 ml/min/1.73 sqM) Est GFR (MDRD) Non-Af 54 (>60 ml/min/1.73 sqM) Glucose 655 H* (74-99) mg/dL POC Glucose (mg/dL) >600 H (75-99) mg/dL POC Glu Director Global Development ID Raquel Carr Calcium 9.9 (8.4-10.2) mg/dL Phosphorus 4.9 H (2.5-4.5) mg/dL Magnesium 2.1 (1.6-2.3) mg/dL Total Bilirubin 1.3 (0.2-1.3) mg/dL AST 31 (17-59) U/L ALT 35 (21-72) U/L Alkaline Phosphatase 125 (38-126) U/L Total Protein 7.5 (6.3-8.2) g/dL Albumin 4.6 (3.5-5.0) g/dL Amylase 61 (30-110) U/L Lipase 51 (23-300) U/L Acetone, Qual Positive (Negative) 10/06/16 09:49 Normal sinus rhythm, biatrial enlargement, ventricular 87, MN interval 132, QRS duration 76 (Irma Foster) Disposition <Mitul Cruz - Last Filed: 10/06/16 10:42> Time of Disposition: 11:00 Decision Date: 10/06/16 Decision Time: 11:00 <Irma Foster - Last Filed: 10/06/16 11:00> Clinical Impression: Vomiting, Insulin dependent diabetes mellitus, DKA (diabetic ketoacidoses) Disposition: ADMITTED IP TO THIS HOSP Condition: Stable Referrals: None,Stated [Primary Care Provider] - 1-2 days
[2016-10-06 09:55] LABS: Basophils % (A) 1 %; CH 30.7; CHCM 29.5; Eosinophils # (A) 0.1 k/uL (0-0.7); Eosinophils % (A) 2 %; HCT 45.4 % (39.0-53.0); HDW 2.45; HGB 13.9 gm/dL (13.0-17.5); Hypochromasia Marked; Luc # (Auto) 0.14; Luc % (Auto) 3; Lymphocytes % (A) 55 %; MCHC 30.5 g/dL (31.0-37.0); Macrocytosis Slight; Mean Platelet Volume 7.8; Monocytes # (A) 0.3 k/uL (0-1.0); Monocytes % (A) 5 %; Neutrophils # (A) 1.9 k/uL (1.3-7.7); Neutrophils % (A) 35 %; RBC 4.34 m/uL (4.30-5.90); RDW 13.8 % (11.5-15.5); WBC 5.3 k/uL (3.8-10.6); WBC (Perox) 5.24
[2016-10-06 10:01] LABS: MCV 104.6 fL (80.0-100.0)
[2016-10-06 10:05] LABS: ALT 35 U/L (21-72); AST 31 U/L (17-59); Alkaline Phosphatase 125 U/L (38-126); Amylase 61 U/L (30-110); Anion Gap 28 mmol/L; Blood Urea Nitrogen 24 mg/dL (9-20); Calcium 9.9 mg/dL (8.4-10.2); Chloride 95 mmol/L (98-107); Magnesium 2.1 mg/dL (1.6-2.3); Non-African American GFR(MDRD) 54 (>60 ml/min/1.73 sqM); Phosphorous 4.9 mg/dL (2.5-4.5); Potassium 5.3 mmol/L (3.5-5.1); Sodium 133 mmol/L (137-145); Total Bilirubin 1.3 mg/dL (0.2-1.3); Total Protein 7.5 g/dL (6.3-8.2)
[2016-10-06 10:16] LABS: Carbon Dioxide 10 mmol/L (22-30); Glucose 655 mg/dL (74-99)
[2016-10-06 10:18] LABS: Manual Review Performed
[2016-10-06] MEDS ORDERED: ONDANSETRON 4 MG/2 ML VIAL IVP STA (10:24)
[2016-10-06] MEDS ORDERED: INSULIN REGULAR BOLUS (FROM DRIP BAG) IV ONE (10:36)
[2016-10-06] MEDS ORDERED: IBUPROFEN 800 MG TAB PO PRN (11:00)
[2016-10-06] MEDS ORDERED: CLOTRIMAZOLE 1% CREAM 15 GM TUBE TOPICAL PRN (11:00)
[2016-10-06] MEDS ORDERED: POLYETHYLENE GLYCOL 3350 17 GM POWD.PACK PO PRN (11:00)
[2016-10-06 11:11] LABS: Glucose,Whole Blood >600 mg/dL (75-99)
--- NOTE | 2016-10-06 11:15 | XR ---
EXAMINATION TYPE: XR abdomen 2V DATE OF EXAM: 10/06/2016 9:55 AM COMPARISON: 09/27/2016 INDICATION: Pain TECHNIQUE: Single view abdomen FINDINGS: There is a normal bowel gas pattern. Psoas margins are normal. No organomegaly is present. No suspicious air-fluid levels or differential air-fluid levels are present. No free air is present. No suspicious calcifications are evident. There is a stable calcification in the left hemipelvis, lik callie a phlebolith. IMPRESSION: 1. Unremarkable Abdomen
[2016-10-06] MEDS: INSULIN REGULAR 100 UNIT in SODIUM CHLORIDE 0.9% 100 ML IV SCH (11:21)
[2016-10-06 11:30] LABS: Appearance,Urine Clear (Clear); Bilirubin,Urine Negative (Negative); Glucose,Urine (UA) 4+ (Negative); Leukocyte Esterase,Urine Negative (Negative); Nitrite,Urine Negative (Negative); PH, Urine 5.5 (5.0-8.0); Protein,Urine Negative (Negative); Specific Gravity,Urine 1.016 (1.001-1.035); UA Billing (MACRO vs. MICRO) CHEM; Urobilinogen,Urine <2.0 mg/dL (<2.0)
[2016-10-06 11:38] LABS: Ketones,Urine 4+ (Negative)
[2016-10-06 12:11] LABS: Glucose,Whole Blood 589 mg/dL (75-99)
[2016-10-06] MEDS: SODIUM CHLORIDE 0.9% 1,000 ML IV SCH ×2 (12:15→16:13)
[2016-10-06 13:28] LABS: Glucose,Whole Blood 479 mg/dL (75-99)
[2016-10-06 14:24] VITALS: BMI 25.8
[2016-10-06 14:45] LABS: Anion Gap 23 mmol/L; Blood Urea Nitrogen 25 mg/dL (9-20); Chloride 105 mmol/L (98-107); Glucose 359 mg/dL (74-99); Non-African American GFR(MDRD) 56 (>60 ml/min/1.73 sqM); Potassium 4.4 mmol/L (3.5-5.1); Sodium 138 mmol/L (137-145)
[2016-10-06 14:50] LABS: Carbon Dioxide 10 mmol/L (22-30)
[2016-10-06 14:56] LABS: Glucose,Whole Blood 341 mg/dL (75-99)
[2016-10-06 15:57] LABS: Glucose,Whole Blood 217 mg/dL (75-99)
[2016-10-06] MEDS: D5-0.45% NACL WITH KCL 20MEQ/L 1,000 ML IV SCH (16:59)
[2016-10-06] MEDS: GABAPENTIN 100 MG CAP PO SCH ×2 (16:59→22:24)
[2016-10-06] MEDS: CALCIUM CARBONATE 500 MG CHEWABLE PO SCH ×2 (16:59→22:24)
[2016-10-06 17:31] LABS: Glucose,Whole Blood 157 mg/dL (75-99)
[2016-10-06 18:06] LABS: Glucose,Whole Blood 157 mg/dL (75-99)
[2016-10-06 18:45] LABS: Anion Gap 11 mmol/L; Blood Urea Nitrogen 25 mg/dL (9-20); Carbon Dioxide 19 mmol/L (22-30); Chloride 109 mmol/L (98-107); Glucose 138 mg/dL (74-99); Non-African American GFR(MDRD) >60 (>60 ml/min/1.73 sqM); Phosphorous 2.1 mg/dL (2.5-4.5); Sodium 139 mmol/L (137-145)
[2016-10-06 19:24] LABS: Glucose,Whole Blood 122 mg/dL (75-99)
[2016-10-06 19:42] LABS: Glucose,Whole Blood 110 mg/dL (75-99)
--- NOTE | 2016-10-06 19:58 | HP ---
DATE OF ADMISSION: 10/06/2016 REASON FOR ADMISSION: Abdominal pain. HISTORY OF PRESENTING ILLNESS: This is a 56-year-old gentleman that was admitted to the hospital multiple times with diabetic ketoacidosis due to noncompliance. Patient also apparently has a long history of drug abuse as well. The patient apparently informed the emergency room physician that he has not taken insulin in 3 days due to abdominal pain. Patient was noted to be in diabetic ketoacidosis with a large anion gap, bicarb was around 10 with ketoneuria and hypoglycemia. Patient was started on DKA protocol. At the time of my evaluation, patient was drowsy, states that he has not taken his insulin, however, denies having any additional complaints including fevers, chills, nausea, vomiting, diarrhea. Patient does have epigastric pain. However, no bloody bowel movements or hematemesis are reported. REVIEW OF SYSTEMS: 14 points review of systems was done; none pertinent other than mentioned above. MEDICATIONS: Home medications include: 1. Ibuprofen. 2. Pepcid. 3. Lotrimin cream. 4. Trazodone. 5. Metoprolol. 6. Lantus. 7. Humalog. 8. Neurontin. 9. TUMS. 10. MiraLax. 11. Prilosec. 12. Zestril. 13. Thiamine. 14. Multivitamin. 15. Folic acid. Those were reviewed and appropriately reconciled. ALLERGIES: No known drug allergies. Past medical history includes: diabetes mellitus, hypertension, pneumonia, chronic kidney disease, rheumatoid arthritis, peripheral neuropathy and polysubstance use. PAST SURGICAL HISTORY: Colonoscopy, EGD, adenoidectomy, tonsillectomy. SOCIAL HISTORY: Significant alcohol use, has had multiple admissions with positive tox screen. Denies any drug use at this time. Denies smoking at this time. FAMILY HISTORY: Not pertinent to the current admission. PHYSICAL EXAM: VITALS: Temperature 97.4, heart rate is an 82, respiratory rate 20, blood pressure 130/63, saturating 100% on room air. GENERALLY: Slightly drowsy; however arousable and appropriately answering questions. HEENT: The pupils are equal and reactive to light and accommodation. HEART: S1, S2 present. No murmur appreciated. LUNGS: Good air entry. No wheezing or rhonchi noted. ABDOMINAL EXAM: Which appears to have some tenderness in the epigastric region. No organomegaly. Bowel sounds are intact. GENITOURINARY: No Bello in place. EXTREMITIES: Pulses can be palpated distally. Denies any tenderness on gross palpation. SKIN: On a gross skin exam does not appear to have any purpura or any skin rashes that were noted. NEUROLOGICALLY: Grossly cranial nerves 2-12 intact. No motor or sensory deficits noted. Laboratory data includes hemoglobin 13.9, hematocrit 45.4, white count 5.3, platelets of 268. Sodium 132, potassium 5.3, chloride 95, bicarb 10, BUN 24, creatinine of 1.36 and initial admission glucose 655. ASSESSMENT AND PLAN: 1. Diabetic ketoacidosis secondary to noncompliance with anion gap 18 on admission. 2. History of hypertension. 3. History of congestive heart failure. 4. Peripheral arterial disease. 5. Hypertension. 6. Polysubstance use. 7. Chronic kidney disease, stage III, with an acute component due to above. PLAN: We will give the patient an additional 1.5 liters of crystalloids. Patient is to be continued on D5W and on insulin drip until anion gap is closed. Thereafter patient will be allowed to attempt diet if there is no symptoms of nausea. Once the gap is closed, the patient will be transitioned to subcu long-acting insulin depending on the amount of insulin used on the drip. Thereafter, we will reassess patient in the a.m. and if patient is stable, will likely discharge the patient home. Again this patient is noncompliant and has been admitted over 15 times in the last 5 to 6 months.
[2016-10-06] MEDS ORDERED: FAMOTIDINE 20 MG TAB PO SCH (21:00)
[2016-10-06] MEDS ORDERED: traZODone HCL 100 MG TAB PO SCH (21:00)
[2016-10-06] MEDS ORDERED: KETOROLAC 30 MG/ML 1 ML VIAL IVP PRN (21:09)
[2016-10-06 21:27] LABS: Glucose,Whole Blood 90 mg/dL (75-99)
[2016-10-06 21:43] LABS: Glucose,Whole Blood 91 mg/dL (75-99)
[2016-10-06] MEDS: METOPROLOL TARTRATE 25 MG TAB PO SCH (22:24)
[2016-10-06] MEDS: oxyCODONE-APAP 5-325MG 1 EACH TAB PO PRN (22:25)
[2016-10-06 23:07] LABS: Glucose,Whole Blood 82 mg/dL (75-99)
[2016-10-06 23:34] LABS: Anion Gap 6 mmol/L; Calcium 9.3 mg/dL (8.4-10.2); Carbon Dioxide 22 mmol/L (22-30); Chloride 111 mmol/L (98-107); Glucose 82 mg/dL (74-99); Non-African American GFR(MDRD) >60 (>60 ml/min/1.73 sqM); Sodium 139 mmol/L (137-145); Total Bilirubin 0.9 mg/dL (0.2-1.3); Total Protein 6.2 g/dL (6.3-8.2)
[2016-10-06 23:35] LABS: Blood Urea Nitrogen 23 mg/dL (9-20); Potassium 5.7 mmol/L (3.5-5.1)
[2016-10-06 23:36] LABS: ALT 35 U/L (21-72); AST 31 U/L (17-59); Alkaline Phosphatase 80 U/L (38-126)
[2016-10-06] MEDS ORDERED: INSULIN NPH 300 UNIT/3 ML VIAL SQ ONE (23:48)
[2016-10-07 01:03] VITALS: RESP 16
[2016-10-07] MEDS: INSULIN REGULAR 100 UNIT in SODIUM CHLORIDE 0.9% 100 ML IV SCH (02:03)
[2016-10-07] MEDS: D5-0.45% NACL WITH KCL 20MEQ/L 1,000 ML IV SCH ×2 (02:03→05:30)
[2016-10-07 07:22] LABS: Glucose,Whole Blood 334 mg/dL (75-99)
[2016-10-07] MEDS ORDERED: INSULIN LISPRO (humaLOG) 300 UNIT/3 ML VIAL SQ SCH ×2 (07:30)
[2016-10-07] MEDS ORDERED: PANTOPRAZOLE 40 MG TABLET PO SCH (07:30)
[2016-10-07] MEDS: oxyCODONE-APAP 5-325MG 1 EACH TAB PO PRN (07:38)
[2016-10-07] MEDS: GABAPENTIN 100 MG CAP PO SCH (07:39)
[2016-10-07] MEDS: CALCIUM CARBONATE 500 MG CHEWABLE PO SCH (07:39)
[2016-10-07] MEDS: METOPROLOL TARTRATE 25 MG TAB PO SCH (07:46)
[2016-10-07 08:11] VITALS: BP 139/63; PULSE 82; TEMP 97.4
[2016-10-07] MEDS ORDERED: INSULIN GLARGINE 100 UNIT/ML 10 ML VIAL SQ SCH (09:00)
[2016-10-07] MEDS ORDERED: LISINOPRIL 10 MG TAB PO SCH (09:00)
[2016-10-07] MEDS ORDERED: THIAMINE 100 MG TAB PO SCH (09:00)
[2016-10-07 10:45] LABS: Hemoglobin A1C 10.5 % (4.2-6.1)
[2016-10-07] MEDS ORDERED: MAG HYDROX/AL HYDROX/SIMETH 30 ML, HYOSCYAMINE ELIXIR 10 ML, CIMETIDINE HCL 300 MG, LID... PO STA ×4 (11:08)
[2016-10-07] MEDS ORDERED: MULTIVITAMINS, THERA 1 EACH TAB PO SCH (12:00)
[2016-10-07] MEDS ORDERED: FOLIC ACID 1 MG TAB PO SCH (12:00)
--- NOTE | 2016-10-07 18:25 | P.DS ---
Providers Date of admission: 10/06/16 11:00 Attending physician: France Balderas Primary care physician: Stated None Hospital Course: HISTORY OF PRESENTING ILLNESS: This is a 56-year-old gentleman that was admitted to the hospital multiple times with diabetic ketoacidosis due to noncompliance. Patient also apparently has a long history of drug abuse as well. The patient apparently informed the emergency room physician that he has not taken insulin in 3 days due to abdominal pain. Patient was noted to be in diabetic ketoacidosis with a large anion gap, bicarb was around 10 with ketoneuria and hypoglycemia. Patient was started on DKA protocol. At the time of my evaluation, patient was drowsy, states that he has not taken his insulin, however, denies having any additional complaints including fevers, chills, nausea, vomiting, diarrhea. Patient does have epigastric pain. However, no bloody bowel movements or hematemesis are reported. PHYSICAL EXAM: AWAKE AND APPROPRIATE HEENT: The pupils are equal and reactive to light and accommodation. HEART: S1, S2 present. No murmur appreciated. LUNGS: Good air entry. No wheezing or rhonchi noted. ABDOMINAL EXAM: Which appears to have some tenderness in the epigastric region. No organomegaly. Bowel sounds are intact. GENITOURINARY: No Bello in place. EXTREMITIES: Pulses can be palpated distally. Denies any tenderness on gross palpation. SKIN: On a gross skin exam does not appear to have any purpura or any skin rashes that were noted. NEUROLOGICALLY: Grossly cranial nerves 2-12 intact. No motor or sensory deficits noted. Laboratory data includes hemoglobin 13.9, hematocrit 45.4, white count 5.3, platelets of 268. Sodium 132, potassium 5.3, chloride 95, bicarb 10, BUN 24, creatinine of 1.36 and initial admission glucose 655. ASSESSMENT AND PLAN: 1. Diabetic ketoacidosis secondary to noncompliance with anion gap 18 on admission. GAP WAS CLOSED, DISCUSSED COMPLIANCE REGLAN 5MG TID SUSPECT UNDERLYING GASTROPARESIS 2. History of hypertension. 3. History of congestive heart failure. 4. Peripheral arterial disease. 5. Hypertension. 6. Polysubstance use. 7. Chronic kidney disease, stage III, with an acute component due to above. Does not have a PCP will refer to [facility]. Patient Condition at Discharge: Stable Plan - Discharge Summary New Discharge Prescriptions: RX: Insulin Glargine [Lantus] 30 unit SQ W/BRKFST #1 vial Metoclopramide HCl [Reglan] 5 mg PO TID #30 tablet Discharge Medication List RX: Folic Acid 1 mg PO DAILY #30 tablet 07/16/16 [Rx] RX: Multivitamins, Thera [Multivitamin (formulary)] 1 tab PO DAILY #30 tablet [Rx] RX: Thiamine [Vitamin B-1] 100 mg PO DAILY #30 tablet 07/16/16 [Rx] RX: Lisinopril [Zestril] 10 mg PO DAILY #30 tab 07/25/16 [Rx] RX: Omeprazole [PriLOSEC] 40 mg PO AC-BRKFST #30 capsule. 07/25/16 [Rx] RX: Polyethylene Glycol 3350 [Miralax] 17 gm PO DAILY PRN #30 packet 07/25/16 [ Rx] RX: Metoprolol Tartrate [Lopressor] 25 mg PO BID 08/05/16 [History] RX: traZODone HCL [Desyrel] 200 mg PO HS 08/05/16 [History] RX: Clotrimazole Cream [Lotrimin Cream] 1 applic TOPICAL BID PRN 08/30/16 [ History] RX: Calcium Carbonate [Tums] 500 mg PO TID #1 chew 09/02/16 [Rx] RX: Gabapentin [Neurontin] 100 mg PO TID #60 cap 09/02/16 [Rx] RX: INSULIN LISPRO (humaLOG) [humaLOG (formulary)] 8 unit SQ AC-TID #1 vial [Rx] RX: Famotidine [Pepcid] 40 mg PO HS 10/06/16 [History] RX: Ibuprofen [Motrin] 800 mg PO Q8HR PRN 10/06/16 [History] RX: amLODIPine [Norvasc] 5 mg PO DAILY 10/06/16 [History] Metoclopramide HCl [Reglan] 5 mg PO TID #30 tablet 10/07/16 [Rx] RX: Insulin Glargine [Lantus] 30 unit SQ W/BRKFST #1 vial 10/07/16 [Rx] Follow up Appointment(s)/Referral(s): Ines Judge MD [STAFF PHYSICIAN] - 1 Week (Unable to make appt please call [facility] at [phone]) None,Stated [Primary Care Provider] - 1-2 days Patient Instructions/Handouts: Diabetic Ketoacidosis (DC), Acute Nausea and Vomiting (DC) Discharge Disposition: HOME SELF-CARE
== END 2016-10-07 11:55 | disposition home or self-care (01) | DRG 638 ==
LOC: EC 09:19 → 6SEL 11:00 → 5MS5E 10-07 01:57
PROVIDERS: ADMIT Internal Medicine; ATTEND Internal Medicine
DX: E13.10 Other specified diabetes mellitus with ketoacidosis without coma (principal); I13.0 Hypertensive heart and chronic kidney disease with heart failure and stage 1 through stage 4 chronic kidney disease, or unspecified chronic kidney disease; N18.3 Chronic kidney disease, stage 3 (moderate); I50.9 Heart failure, unspecified; I73.9 Peripheral vascular disease, unspecified; E11.22 Type 2 diabetes mellitus with diabetic chronic kidney disease; E11.42 Type 2 diabetes mellitus with diabetic polyneuropathy; M06.9 Rheumatoid arthritis, unspecified; F19.10 Other psychoactive substance abuse, uncomplicated; G89.29 Other chronic pain; M19.91 Primary osteoarthritis, unspecified site; M54.9 Dorsalgia, unspecified; L40.9 Psoriasis, unspecified; Z91.19 Patient's noncompliance with other medical treatment and regimen; Z79.4 Long term (current) use of insulin; Z79.899 Other long term (current) drug therapy; Z83.3 Family history of diabetes mellitus
CPT/HCPCS: 36415; 74020; 80051; 80053; 81003; 82009; 82150; 82565; 82947; 83036; 83690; 83735; 84100; 84520; 85025; 93005; 96361; 96374; 99285

== ENCOUNTER 2016-10-10 06:51 | Inpatient (IN) | payer OTHER ==
[2016-10-10 06:56] LABS: Glucose,Whole Blood >600 mg/dL (75-99)
[2016-10-10] MEDS ORDERED: SODIUM CHLORIDE 0.9% 2,000 ML IV ONE (07:32)
[2016-10-10] MEDS ORDERED: SODIUM CHLORIDE 0.9% 1,000 ML IV STA (07:32)
[2016-10-10] MEDS ORDERED: INSULIN REGULAR 100 UNIT/ML VIAL IV ONE (07:33)
[2016-10-10] MEDS ORDERED: PROMETHAZINE INJ 25 MG in SODIUM CHLORIDE 0.9% 50 ML IVPB STA (07:36)
--- NOTE | 2016-10-10 07:39 | ED ---
Abdominal Pain HPI - General Chief Complaint: Abdominal Pain Stated Complaint: diabetes Time Seen by Provider: 10/10/16 07:00 Source: patient, EMS, RN notes reviewed Mode of arrival: EMS Limitations: no limitations - History of Present Illness Initial Comments: This is a 56-year-old male with a history of diabetes who was brought in by EMS this morning because of abdominal pain nausea vomiting and elevated blood sugar that started this morning. He was given medication by paramedics was still has nausea vomiting. His blood sugar read high. He was just recently discharged from the hospital for the same thing. MD Complaint: abdominal pain, other - Related Data Home Medications Medication Instructions Recorded Confirmed Metoprolol Tartrate [Lopressor] 25 mg PO BID 08/05/16 10/10/16 traZODone HCL [Desyrel] 200 mg PO HS 08/05/16 10/10/16 Clotrimazole Cream [Lotrimin Cream] 1 applic TOPICAL BID PRN 08/30/16 10/10/16 Famotidine [Pepcid] 40 mg PO HS 10/06/16 10/10/16 Ibuprofen [Motrin] 800 mg PO Q8HR PRN 10/06/16 10/10/16 amLODIPine [Norvasc] 5 mg PO DAILY 10/06/16 10/10/16 Previous Rx's Medication Instructions Recorded Folic Acid 1 mg PO DAILY #30 tablet 07/16/16 Multivitamins, Thera [Multivitamin 1 tab PO DAILY #30 tablet 07/16/16 (formulary)] Thiamine [Vitamin B-1] 100 mg PO DAILY #30 tablet 07/16/16 Lisinopril [Zestril] 10 mg PO DAILY #30 tab 07/25/16 Omeprazole [PriLOSEC] 40 mg PO AC-BRKFST #30 capsule. 07/25/16 Polyethylene Glycol 3350 [Miralax] 17 gm PO DAILY PRN #30 packet 07/25/16 Calcium Carbonate [Tums] 500 mg PO TID #1 chew 09/02/16 Gabapentin [Neurontin] 100 mg PO TID #60 cap 09/02/16 INSULIN LISPRO (humaLOG) [humaLOG 8 unit SQ AC-TID #1 vial 09/02/16 (formulary)] Insulin Glargine [Lantus] 30 unit SQ W/BRKFST #1 vial 10/07/16 Metoclopramide HCl [Reglan] 5 mg PO TID #30 tablet 10/07/16 Allergies Allergy/AdvReac Type Severity Reaction Status Date / Time No Known Allergies Allergy Verified 10/10/16 07:19 Review of Systems ROS Statement: Those systems with pertinent positive or pertinent negative responses have been documented in the HPI. ROS Other: All systems not noted in ROS Statement are negative. Past Medical History Past Medical History: Heart Failure, Diabetes Mellitus, Hypertension, Pneumonia , Renal Disease, Rheumatoid Arthritis (RA), Skin Disorder Additional Past Medical History / Comment(s): IDDM poorly controlled, DKAs, diabetic gastroparesis, bilateral feet/hands peripheral neuropathy, blood behind both eyes, peptic ulcer disease/duodenal ulcer/gastritis with erosions, previous hospitalization for pulmonary edema and bilateral pleural effusion and subsequent evaluation showed a preserved LV function with an ejection fraction of around 50%, CKD stage III, normocytic chronic anemia, rheumatoid arthritis, DJD, chronic back pain, osteoarthritis-generalized, eczema, psoriasis, ear infections, hx of narcotic abuse, cocaine abuse and alcohol abuse. History of Any Multi-Drug Resistant Organisms: MRSA Date of last positivie culture/infection: 02/25/08 MDRO Source:: Neck Past Surgical History: Adenoidectomy, Tonsillectomy Additional Past Surgical History / Comment(s): colonoscopy 2008, EGD, lt great toe amp, and part of 2nd toe. Past Anesthesia/Blood Transfusion Reactions: No Reported Reaction Past Psychological History: No Psychological Hx Reported Additional Psychological History / Comment(s): PT STTED HE LIVES ALONE IN AN APT ,NO PETS. NO OUTSIDE SERVICES CURRENTLY. 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 Smoking Status: Never smoker Past Alcohol Use History: None Reported Additional Past Alcohol Use History / Comment(s): PT has STATED that he DRINKS OCC BUT LESS THAN 14 PER WEEK Past Drug Use History: None Reported Additional Drug Use History / Comment(s): PT PMH stated pt DENIES ANY DRUG USE IN AT LEAST 7-8 YEARS. 08/30/16 urine + cocaine. 06/18/16 toxicology + for cocaine. 06/29/16 toxicology + or cocaine. 07/06/16 toxicology + for cocaine. toxicology + cocaine 08/17/16 - Past Family History Father Family Medical History: Diabetes Mellitus, Hypertension Additional Family Medical History / Comment(s): father Mother Additional Family Medical History / Comment(s): pyschiatric issues. General Exam - General Exam Comments Initial Comments: This is a well-developed well-nourished awake alert the emesis is brown watery no evidence of any blood at this time. Limitations: no limitations General appearance: alert, anxious, in distress Head exam: Present: atraumatic, normocephalic, normal inspection Eye exam: Present: normal appearance, PERRL, EOMI. Absent: scleral icterus, conjunctival injection, periorbital swelling ENT exam: Present: normal exam, mucous membranes moist Neck exam: Present: normal inspection. Absent: tenderness, meningismus, lymphadenopathy Respiratory exam: Present: normal lung sounds bilaterally. Absent: respiratory distress, wheezes, rales, rhonchi, stridor Cardiovascular Exam: Present: regular rate, normal rhythm, normal heart sounds. Absent: systolic murmur, diastolic murmur, rubs, gallop, clicks GI/Abdominal exam: Present: soft, tenderness (Epigastric discomfort to palpation no guarding rebound), normal bowel sounds. Absent: distended, guarding, rebound, rigid Rectal exam: Present: deferred Extremities exam: Present: normal inspection, full ROM, normal capillary refill. Absent: tenderness, pedal edema, joint swelling, calf tenderness Back exam: Present: normal inspection Neurological exam: Present: alert, oriented X3, CN II-XII intact Psychiatric exam: Present: normal affect, normal mood Skin exam: Present: warm, dry, intact, normal color. Absent: rash Course Vital Signs 10/10/16 10/10/16 10/10/16 06:54 07:48 08:16 Temperature 99.2 F Pulse Rate 76 65 79 Respiratory 14 18 15 Rate Blood Pressure 125/60 105/52 O2 Sat by Pulse 99 100 100 Oximetry 10/10/16 10/10/16 09:11 10:09 Temperature Pulse Rate 83 74 Respiratory 15 16 Rate Blood Pressure 145/65 179/89 O2 Sat by Pulse 100 98 Oximetry - Reevaluation(s) Reevaluation #1: 10/10/16 10:29 Patient is not feeling too much better still feeling somewhat nauseated Medical Decision Making - Medical Decision Making I did discuss findings with the admitting physician and facial be admitted for treatment of DKA and presume right lower lobe pneumonia - Lab Data Result diagrams: 10/10/16 07:00 10/10/16 07:00 Lab Results 10/10/16 10/10/16 10/10/16 Range/Units 06:55 07:00 07:00 WBC 7.0 (3.8-10.6) k/uL RBC 4.00 L (4.30-5.90) m/uL Hgb 12.9 L (13.0-17.5) gm/dL Hct 41.7 (39.0-53.0) % MCV 104.2 H (80.0-100.0) fL MCH 32.1 (25.0-35.0) pg MCHC 30.8 L (31.0-37.0) g/dL RDW 13.7 (11.5-15.5) % Plt Count 219 (150-450) k/uL Neutrophils % 53 % Lymphocytes % 40 % Monocytes % 4 % Eosinophils % 1 % Basophils % 0 % Neutrophils # 3.7 (1.3-7.7) k/uL Lymphocytes # 2.8 (1.0-4.8) k/uL Monocytes # 0.3 (0-1.0) k/uL Eosinophils # 0.1 (0-0.7) k/uL Basophils # 0.0 (0-0.2) k/uL Hypochromasia Marked Macrocytosis Slight Sodium 130 L (137-145) mmol/L Potassium 5.0 (3.5-5.1) mmol/L Chloride 92 L (98-107) mmol/L Carbon Dioxide 11 L (22-30) mmol/L Anion Gap 27 mmol/L BUN 26 H (9-20) mg/dL Creatinine 1.38 H (0.66-1.25) mg/dL Est GFR (MDRD) Af Amer >60 (>60 ml/min/1.73 sqM) Est GFR (MDRD) Non-Af 53 (>60 ml/min/1.73 sqM) Glucose 770 H* (74-99) mg/dL POC Glucose (mg/dL) >600 H (75-99) mg/dL POC Glu Instrument Lens Grinder ID Myranda Beltran Calcium 9.3 (8.4-10.2) mg/dL Magnesium 1.8 (1.6-2.3) mg/dL Total Bilirubin 1.2 (0.2-1.3) mg/dL AST 28 (17-59) U/L ALT 36 (21-72) U/L Alkaline Phosphatase 114 (38-126) U/L Total Protein 6.6 (6.3-8.2) g/dL Albumin 4.0 (3.5-5.0) g/dL Amylase 61 (30-110) U/L Lipase 57 (23-300) U/L Salicylates <1.0 mg/dL Acetaminophen <10.0 ug/mL Serum Alcohol <10 mg/dL Acetone, Qual Positive (Negative) 10/10/16 10/10/16 Range/Units 08:50 09:57 WBC (3.8-10.6) k/uL RBC (4.30-5.90) m/uL Hgb (13.0-17.5) gm/dL Hct (39.0-53.0) % MCV (80.0-100.0) fL MCH (25.0-35.0) pg MCHC (31.0-37.0) g/dL RDW (11.5-15.5) % Plt Count (150-450) k/uL Neutrophils % % Lymphocytes % % Monocytes % % Eosinophils % % Basophils % % Neutrophils # (1.3-7.7) k/uL Lymphocytes # (1.0-4.8) k/uL Monocytes # (0-1.0) k/uL Eosinophils # (0-0.7) k/uL Basophils # (0-0.2) k/uL Hypochromasia Macrocytosis Sodium (137-145) mmol/L Potassium (3.5-5.1) mmol/L Chloride (98-107) mmol/L Carbon Dioxide (22-30) mmol/L Anion Gap mmol/L BUN (9-20) mg/dL Creatinine (0.66-1.25) mg/dL Est GFR (MDRD) Af Amer (>60 ml/min/1.73 sqM) Est GFR (MDRD) Non-Af (>60 ml/min/1.73 sqM) Glucose (74-99) mg/dL POC Glucose (mg/dL) >600 H 593 H (75-99) mg/dL POC Glu Instrument Lens Grinder ID Raquel Carr Meghan Calcium (8.4-10.2) mg/dL Magnesium (1.6-2.3) mg/dL Total Bilirubin (0.2-1.3) mg/dL AST (17-59) U/L ALT (21-72) U/L Alkaline Phosphatase (38-126) U/L Total Protein (6.3-8.2) g/dL Albumin (3.5-5.0) g/dL Amylase (30-110) U/L Lipase (23-300) U/L Salicylates mg/dL Acetaminophen ug/mL Serum Alcohol mg/dL Acetone, Qual (Negative) - Radiology Data Radiology results: report reviewed (I did review the imaging and reports are is some evidence of a right lower lobe infiltrate. Patient did have a low-grade temperature), image reviewed Critical Care Time Critical Care Time: Yes Critical Care Time: 33 minutes of critical care time which includes initial presentation with history physical lab and x-ray review of EMS findings. Review of old charts documentation of the above discussion with the physician this is made the patient orders Disposition Clinical Impression: DKA (diabetic ketoacidoses), Pneumonia, Vomiting Disposition: ADMITTED IP TO THIS [facility] Condition: Stable Referrals: Sofia Emanuel MD [Primary Care Provider] - 1-2 days
[2016-10-10 07:45] LABS: Basophils % (A) 0 %; CH 30.7; CHCM 29.6; Eosinophils # (A) 0.1 k/uL (0-0.7); Eosinophils % (A) 1 %; HCT 41.7 % (39.0-53.0); HDW 2.48; HGB 12.9 gm/dL (13.0-17.5); Hypochromasia Marked; Luc # (Auto) 0.14; Luc % (Auto) 2; Lymphocytes # (A) 2.8 k/uL (1.0-4.8); Lymphocytes % (A) 40 %; MCH 32.1 pg (25.0-35.0); MCHC 30.8 g/dL (31.0-37.0); MCV 104.2 fL (80.0-100.0); Macrocytosis Slight; Mean Platelet Volume 8.2; Monocytes # (A) 0.3 k/uL (0-1.0); Monocytes % (A) 4 %; Neutrophils # (A) 3.7 k/uL (1.3-7.7); Neutrophils % (A) 53 %; RDW 13.7 % (11.5-15.5); WBC (Perox) 7.06
[2016-10-10 07:56] LABS: ALT 36 U/L (21-72); AST 28 U/L (17-59); Acetaminophen <10.0 ug/mL; Alcohol <10 mg/dL; Alkaline Phosphatase 114 U/L (38-126); Amylase 61 U/L (30-110); Anion Gap 27 mmol/L; Blood Urea Nitrogen 26 mg/dL (9-20); Calcium 9.3 mg/dL (8.4-10.2); Carbon Dioxide 11 mmol/L (22-30); Chloride 92 mmol/L (98-107); Magnesium 1.8 mg/dL (1.6-2.3); Non-African American GFR(MDRD) 53 (>60 ml/min/1.73 sqM); Salicylate <1.0 mg/dL; Sodium 130 mmol/L (137-145); Total Bilirubin 1.2 mg/dL (0.2-1.3); Total Protein 6.6 g/dL (6.3-8.2)
[2016-10-10 08:12] LABS: Glucose 770 mg/dL (74-99)
[2016-10-10 08:53] LABS: Glucose,Whole Blood >600 mg/dL (75-99)
[2016-10-10] MEDS: INSULIN REGULAR 100 UNIT in SODIUM CHLORIDE 0.9% 100 ML IV ONE ×2 (09:04→11:38)
--- NOTE | 2016-10-10 09:57 | XR ---
EXAMINATION TYPE: XR chest 2V DATE OF EXAM: 10/10/2016 9:51 AM COMPARISON: 08/30/2016 HISTORY: Shortness of breath TECHNIQUE: Frontal and lateral views of the chest are obtained. FINDINGS: Scattered senescent parenchymal changes noted. Hyperinflation compatible with COPD. Mild increased density right lower lobe may reflect a developing infiltrate. Correlate clinically and consider progress studies. Heart size is stable. Mediastinal structures are stable and grossly unremarkable. No evidence for hilar prominence. Degenerative changes dorsal spine. IMPRESSION: 1. Mild increased density right lower lobe may reflect a developing infiltrate. Correlate clinically and consider progress studies.
--- NOTE | 2016-10-10 09:58 | XR ---
EXAMINATION TYPE: XR abdomen 1V DATE OF EXAM: 10/10/2016 9:51 AM COMPARISON: NONE HISTORY: Pain TECHNIQUE: Single supine KUB image of the abdomen is obtained FINDINGS: Small bowel demonstrates no evidence for dilatation or air fluid levels. Gas and fecal material is seen in non-distended colon. No convincing evidence for pneumoperitoneum. No unusual calcifications. The lung bases are clear. The osseous structures are intact. IMPRESSION: 1. Overall nonobstructive bowel gas pattern.
[2016-10-10 09:59] LABS: Glucose,Whole Blood 593 mg/dL (75-99)
[2016-10-10] MEDS ORDERED: LEVOFLOXACIN 750MG-D5W PMX 750 MG in DEXTROSE/WATER 1 150ML.BAG IVPB STA (10:31)
[2016-10-10 10:32] LABS: Glucose,Whole Blood 524 mg/dL (75-99)
[2016-10-10] MEDS ORDERED: PNEUMONIA PROTOCOL UTILIZED 1 EACH MISC PO PRN (10:32)
[2016-10-10] MEDS ORDERED: INSULIN REGULAR BOLUS (FROM DRIP BAG) IV ONE (10:34)
[2016-10-10] MEDS ORDERED: Magnesium Replacement Protocol 1 EACH MISC MISCELLANE PRN (10:34)
[2016-10-10] MEDS ORDERED: Potassium Replacement Protocol 1 EACH MISC MISCELLANE PRN (10:34)
[2016-10-10] MEDS ORDERED: IBUPROFEN 800 MG TAB PO PRN (10:36)
[2016-10-10] MEDS ORDERED: CLOTRIMAZOLE 1% CREAM 15 GM TUBE TOPICAL PRN (10:36)
[2016-10-10] MEDS ORDERED: POLYETHYLENE GLYCOL 3350 17 GM POWD.PACK PO PRN (10:36)
[2016-10-10 11:41] LABS: Glucose,Whole Blood 362 mg/dL (75-99)
[2016-10-10 12:28] LABS: Appearance,Urine Clear (Clear); Bilirubin,Urine Negative (Negative); Glucose,Urine (UA) 4+ (Negative); Leukocyte Esterase,Urine Negative (Negative); Nitrite,Urine Negative (Negative); Protein,Urine Negative (Negative); Specific Gravity,Urine 1.017 (1.001-1.035); UA Billing (MACRO vs. MICRO) CHEM; Urobilinogen,Urine <2.0 mg/dL (<2.0)
[2016-10-10] MEDS: D5-0.45% NACL WITH KCL 20MEQ/L 1,000 ML IV SCH ×2 (12:30→23:02)
[2016-10-10 12:37] LABS: Glucose,Whole Blood 232 mg/dL (75-99)
[2016-10-10 12:56] LABS: Ketones,Urine 4+ (Negative)
[2016-10-10] MEDS: IPRATROPIUM-ALBUTEROL 3 ML NEB INHALATION SCH ×4 (13:06→23:39)
[2016-10-10] MEDS: INSULIN REGULAR 100 UNIT in SODIUM CHLORIDE 0.9% 100 ML IV SCH ×2 (13:50→15:35)
[2016-10-10] MEDS: SODIUM CHLORIDE 0.9% 1,000 ML IV SCH ×4 (13:51→23:03)
[2016-10-10 13:53] LABS: Glucose,Whole Blood 173 mg/dL (75-99)
[2016-10-10 15:14] LABS: Glucose,Whole Blood 213 mg/dL (75-99)
[2016-10-10 15:31] LABS: Anion Gap 13 mmol/L; Blood Urea Nitrogen 25 mg/dL (9-20); Calcium 9.3 mg/dL (8.4-10.2); Carbon Dioxide 19 mmol/L (22-30); Chloride 106 mmol/L (98-107); Glucose 187 mg/dL (74-99); Non-African American GFR(MDRD) >60 (>60 ml/min/1.73 sqM); Phosphorous 2.7 mg/dL (2.5-4.5); Sodium 138 mmol/L (137-145)
[2016-10-10 15:32] LABS: Potassium 6.1 mmol/L (3.5-5.1)
[2016-10-10 16:15] LABS: Glucose,Whole Blood 185 mg/dL (75-99)
[2016-10-10] MEDS ORDERED: TEMAZEPAM 15 MG CAP PO PRN (16:46)
[2016-10-10] MEDS ORDERED: ALPRAZolam 0.25 MG TAB PO PRN (16:46)
[2016-10-10] MEDS ORDERED: cloNIDine HCL 0.1 MG TAB PO PRN (16:48)
[2016-10-10] MEDS ORDERED: hydrALAZINE HCL 20 MG/ML 1 ML VIAL IVP PRN (16:48)
[2016-10-10 17:28] LABS: Glucose,Whole Blood 177 mg/dL (75-99)
[2016-10-10] MEDS: GABAPENTIN 100 MG CAP PO SCH ×2 (17:54→22:20)
[2016-10-10 18:10] LABS: Anion Gap 11 mmol/L; Blood Urea Nitrogen 22 mg/dL (9-20); Calcium 9.2 mg/dL (8.4-10.2); Carbon Dioxide 20 mmol/L (22-30); Chloride 107 mmol/L (98-107); Glucose 164 mg/dL (74-99); Non-African American GFR(MDRD) >60 (>60 ml/min/1.73 sqM); Sodium 138 mmol/L (137-145)
[2016-10-10 18:21] LABS: Potassium 6.7 mmol/L (3.5-5.1)
[2016-10-10 18:28] LABS: Glucose,Whole Blood 153 mg/dL (75-99)
[2016-10-10] MEDS: METOCLOPRAMIDE 5 MG TAB PO SCH ×2 (18:40→22:20)
[2016-10-10] MEDS: PIPERACILLIN-TAZOBACTAM 3.375 GM in DEXTROSE/WATER 1 50ML.BAG IVPB SCH (18:41)
[2016-10-10 19:07] LABS: Appearance,Urine Clear (Clear); Bilirubin,Urine Negative (Negative); Glucose,Urine (UA) 4+ (Negative); Leukocyte Esterase,Urine Negative (Negative); Nitrite,Urine Negative (Negative); PH, Urine 5.5 (5.0-8.0); Protein,Urine Negative (Negative); Specific Gravity,Urine 1.009 (1.001-1.035); UA Billing (MACRO vs. MICRO) CHEM; Urobilinogen,Urine <2.0 mg/dL (<2.0)
[2016-10-10 19:20] LABS: Glucose,Whole Blood 133 mg/dL (75-99)
[2016-10-10 19:32] LABS: Ketones,Urine 3+ (Negative)
[2016-10-10 20:40] LABS: Glucose,Whole Blood 116 mg/dL (75-99)
[2016-10-10 21:18] LABS: Glucose,Whole Blood 110 mg/dL (75-99)
[2016-10-10 21:43] LABS: Anion Gap 10 mmol/L; Blood Urea Nitrogen 19 mg/dL (9-20); Calcium 8.8 mg/dL (8.4-10.2); Carbon Dioxide 22 mmol/L (22-30); Chloride 105 mmol/L (98-107); Glucose 121 mg/dL (74-99); Non-African American GFR(MDRD) >60 (>60 ml/min/1.73 sqM); Potassium 4.6 mmol/L (3.5-5.1); Sodium 137 mmol/L (137-145)
--- NOTE | 2016-10-10 21:49 | HP ---
DATE OF ADMISSION: DATE OF SERVICE: 10/10/2016 CHIEF COMPLAINT: Change in mental status, abdominal pain, uncontrolled diabetes mellitus type 2 and diabetic ketoacidosis. HISTORY OF PRESENT ILLNESS: This is a 56-year-old gentleman with a past medical history of multiple medical problems including diabetes type 2, history of CHF, hypertension, history of pneumonia, history of rheumatoid arthritis, being followed Dr. Sofia Emanuel in the outpatient setting, had multiple hospital admissions with DKA. The patient currently was brought to the EMS with abdominal pain, nausea and vomiting. Patient unable to keep anything down. The blood sugars are significantly elevated. The patient still continues to have nausea and vomiting and patient came to [facility] and admitted for further evaluation and treatment. The labs on admission showed WBC 7, hemoglobin 12.9, potassium 6.1, glucose 185. Serum was positive. The patient started on IV insulin drip and patient closely monitored. There is no history of any fever, rigors, headache, loss of consciousness, seizures. PAST MEDICAL HISTORY: History of diabetes mellitus, history of congestive heart failure, hypertension, pneumonia, history of rheumatoid arthritis, history of adenoidectomy and tonsillectomy. Medications prior to admission include home medications: 1. Desyrel 200 mg q.h.s. 2. Norvasc 5 mg p.o. daily. 3. Thiamin 100 mg p.o. daily. 4. MiraLAX 17 grams daily. 5. Prilosec 40 mg a.c. breakfast. 6. Multivitamins daily. 7. Lopressor 10 mg b.i.d. 8. Reglan 5 mg p.o. daily. 9. Zestril 10 mg p.o. daily. 10. Lantus 30 units subcu breakfast 11. Motrin 800 mg q.8 p.r.n. 13. Neurontin 100 mg p.o. t.i.d. 14. Folic acid 1 mg daily. 15. Pepcid 40 mg at bedtime. 16. Lotrimin 1 application b.i.d. p.r.n. 17. TUMS 500 mg p.o. t.i.d. ALLERGIES: None. FAMILY HISTORY: History of diabetes, hypertension in the family. SOCIAL HISTORY: No history of smoking, no history of alcohol. No substance abuse per chart. Review of systems could not be taken. The patient is drowsy at this time. PHYSICAL EXAMINATION: Pulse 86, blood pressure 142/60, respiratory rate 16, temperature 98.4, pulse ox 99% on room air. HEENT: Conjunctivae normal. Oral mucosa dry. NECK: No jugular venous distention. No carotid bruit. No lymph node enlargement. CARDIOVASCULAR: S1 and S2, muffled. No S3, no S4. RESPIRATORY: Breath sounds diminished at the bases. No rhonchi, no crackles. ABDOMEN: Soft, nontender. No mass palpable. LEGS: No edema, no swelling. NERVOUS SYSTEM: Higher function as mentioned. Moves all four limbs. No focal motor deficits. LYMPHATIC: No lymphadenopathy in the neck, axillae or groin. SKIN: No ulcer, rash or bleeding. LABS: WBC 7, hemoglobin 12.9, MCV 104.2, potassium 6.1, glucose 185. Ketones positive. ASSESSMENT: 1. Acute diabetic ketoacidosis and uncontrolled diabetes mellitus type 2. 2. Change in mental status, metabolic encephalopathy, multifactorial. 3. Possible right lower lobe pneumonia, possibly aspiration. 4. Hyperkalemia. 5. Incessant nausea, vomiting, possible acute gastritis or diabetic gastroparesis. 6. Anemia, microcytic anemia of chronic disease. 7. History of congestive heart failure with chronic diastolic dysfunction. Ejection fraction 50%. 8. Chronic kidney disease stage III history. 9. History of hypertension, essential. 10. History of pneumonia. 11. History of diabetic gastroparesis. 12. History of peripheral neuropathy secondary from diabetes mellitus. 13. History of peptic ulcer disease and duodenal ulcer and gastritis with erosions. 14. History of rheumatoid arthritis. 15. History of degenerative joint disease with chronic back pain. 16. History of eczema. 17. History psoriasis. 18. History of narcotic abuse, cocaine abuse and alcohol abuse previously. 19. History of methicillin-resistant Staphylococcus aureus. 20. NO CODE, NO CPR, NO VENTILATOR. RECOMMENDATIONS AND DISCUSSION: In this 56-year-old gentleman who presented with multiple complex medical issues, will monitor the patient closely. Continue the current medications, symptomatic treatment, K protocol, monitor blood sugars closely. IV fluids. Repeat potassium. I would also recommend symptomatic treatment also. Protonix will be given. Broad-spectrum IV antibiotics have been initiated. The chest x-ray was done, which showed suspicious right lower lobe pneumonia, possibly aspiration. Will initiate broad-spectrum IV antibiotics and continue to monitor. Prognosis guarded. MTDD
[2016-10-10] MEDS: HEPARIN SODIUM,PORCINE 5,000 UNIT/ML 1 ML VIAL SQ SCH (22:18)
[2016-10-10] MEDS: traZODone HCL 100 MG TAB PO SCH (22:20)
[2016-10-10] MEDS: PANTOPRAZOLE 40 MG/10 ML VIAL IVP SCH (22:20)
[2016-10-10] MEDS: METOPROLOL TARTRATE 25 MG TAB PO SCH (22:20)
[2016-10-10] MEDS: CALCIUM CARBONATE 500 MG CHEWABLE PO SCH (22:20)
[2016-10-10 22:44] LABS: Glucose,Whole Blood 118 mg/dL (75-99)
[2016-10-10] MEDS ORDERED: INSULIN NPH 300 UNIT/3 ML VIAL SQ ONE (22:53)
[2016-10-11] MEDS: PIPERACILLIN-TAZOBACTAM 3.375 GM in DEXTROSE/WATER 1 50ML.BAG IVPB SCH ×3 (00:34→15:54)
[2016-10-11] MEDS ORDERED: INSULIN NPH 300 UNIT/3 ML VIAL SQ STA (01:00)
[2016-10-11 01:30] LABS: Glucose,Whole Blood 188 mg/dL (75-99)
[2016-10-11 05:58] LABS: Glucose,Whole Blood 344 mg/dL (75-99)
[2016-10-11 06:38] LABS: Basophils % (A) 0 %; CH 31.4; CHCM 31.6; Eosinophils # (A) 0.1 k/uL (0-0.7); Eosinophils % (A) 1 %; HCT 38.7 % (39.0-53.0); HDW 2.46; HGB 12.3 gm/dL (13.0-17.5); Luc % (Auto) 2; Lymphocytes # (A) 0.9 k/uL (1.0-4.8); Lymphocytes % (A) 17 %; MCH 31.9 pg (25.0-35.0); MCHC 31.9 g/dL (31.0-37.0); MCV 100.1 fL (80.0-100.0); Macrocytosis Slight; Monocytes # (A) 0.3 k/uL (0-1.0); Monocytes % (A) 6 %; Neutrophils # (A) 3.6 k/uL (1.3-7.7); Neutrophils % (A) 73 %; RBC 3.87 m/uL (4.30-5.90); RDW 14.1 % (11.5-15.5); WBC (Perox) 5.23
[2016-10-11 06:39] LABS: Anion Gap 11 mmol/L; Blood Urea Nitrogen 16 mg/dL (9-20); Calcium 8.7 mg/dL (8.4-10.2); Carbon Dioxide 22 mmol/L (22-30); Chloride 103 mmol/L (98-107); Glucose 340 mg/dL (74-99); Non-African American GFR(MDRD) >60 (>60 ml/min/1.73 sqM); Potassium 4.1 mmol/L (3.5-5.1); Sodium 136 mmol/L (137-145)
[2016-10-11] MEDS ORDERED: PANTOPRAZOLE 40 MG TABLET PO SCH (07:30)
[2016-10-11] MEDS: INSULIN LISPRO (humaLOG) 300 UNIT/3 ML VIAL SQ SCH ×7 (07:34→22:34)
[2016-10-11] MEDS: METOCLOPRAMIDE 5 MG TAB PO SCH ×3 (09:19→22:35)
[2016-10-11] MEDS: amLODIPine 5 MG TAB PO SCH (09:19)
[2016-10-11] MEDS: LEVOFLOXACIN 750 MG TAB PO SCH (09:19)
[2016-10-11] MEDS: METOPROLOL TARTRATE 25 MG TAB PO SCH ×2 (09:19→23:06)
[2016-10-11] MEDS: LISINOPRIL 10 MG TAB PO SCH (09:19)
[2016-10-11] MEDS: CALCIUM CARBONATE 500 MG CHEWABLE PO SCH ×3 (09:19→22:35)
[2016-10-11] MEDS: GABAPENTIN 100 MG CAP PO SCH ×3 (09:19→22:34)
[2016-10-11] MEDS: PANTOPRAZOLE 40 MG/10 ML VIAL IVP SCH ×2 (09:20→22:35)
[2016-10-11] MEDS: HEPARIN SODIUM,PORCINE 5,000 UNIT/ML 1 ML VIAL SQ SCH ×2 (09:20→22:34)
[2016-10-11] MEDS: INSULIN GLARGINE 100 UNIT/ML 10 ML VIAL SQ SCH (09:21)
[2016-10-11] MEDS: IPRATROPIUM-ALBUTEROL 3 ML NEB INHALATION SCH ×5 (09:27→22:38)
--- NOTE | 2016-10-11 09:33 | XR ---
EXAMINATION TYPE: XR chest 2V DATE OF EXAM: 10/11/2016 7:13 AM COMPARISON: Prior chest x-ray 10 Oct 2016 HISTORY: Pneumonia TECHNIQUE: Frontal and lateral views of the chest are obtained. FINDINGS: Lung volumes are low and there are overlying cardiac leads, patient is rotated. Patchy bas ilar density is present. Cardiomediastinal silhouette, pulmonary vascularity and mikael are stable, hea rt may be enlarged. No pneumothorax or evident effusion. IMPRESSION: Correlate for basilar atelectasis versus effusion. Follow-up recommended. Exam is somewh at limited.
[2016-10-11 11:50] LABS: Glucose,Whole Blood 196 mg/dL (75-99)
[2016-10-11] MEDS: FOLIC ACID 1 MG TAB PO SCH (12:29)
[2016-10-11] MEDS: MULTIVITAMINS, THERA 1 EACH TAB PO SCH (12:29)
[2016-10-11] MEDS: THIAMINE 100 MG TAB PO SCH (12:29)
[2016-10-11 13:36] VITALS: BMI 24.5
--- NOTE | 2016-10-11 15:20 | PN ---
DATE OF SERVICE: 10/11/2016 This 56-year-old gentleman admitted with acute diabetic ketoacidosis and vomiting is being closely monitored at this time. The ketoacidosis is improving. No chest pain. No palpitation. No fever. On exam, alert and oriented x3. Pulse is 66, blood pressure 131/70, respiration 18, temperature 99.1, pulse ox 96% on room air. HEENT: Conjunctivae normal. NECK: No jugular venous distention. CARDIOVASCULAR SYSTEM: S1, S2 muffled. RESPIRATORY SYSTEM: Breath sounds diminished at the bases. A few rhonchi. No crackles. ABDOMEN: Soft, non-tender. No mass palpable. LEGS: No edema. No swelling. NERVOUS SYSTEM: No focal deficit. LABS: WBC 5, hemoglobin 12.3. Accu-Cheks are 196. Other labs are noted. Sodium 136. ASSESSMENT: 1. Acute diabetic ketoacidosis, uncontrolled diabetes mellitus, type 2. 2. Change in mental status, metabolic encephalopathy, multifactorial. 3. Possible right lower lobe pneumonia, possibly aspiration. 4. Hyperkalemia. 5. Incessant nausea and vomiting, possible gastritis or diabetic gastroparesis. 6. Anemia, microcytic; anemia of chronic disease. 7. History of congestive heart failure with chronic diastolic dysfunction; ejection fraction 50%. 8. Chronic kidney disease, stage III, history. 9. History of hypertension, essential. 10. History of pneumonia. 11. History of diabetic gastroparesis. 12. History of peripheral neuropathy secondary to diabetes mellitus, type 2. 13. History of peptic ulcer disease and duodenal ulcer and gastritis with erosions previously. 14. History of rheumatoid arthritis. 15. History of degenerative joint disease and chronic back pain. 16. History of eczema. 17. History of psoriasis. 18. History of narcotic abuse, cocaine abuse and alcohol abuse remotely. 19. History of methicillin-resistant Staphylococcus aureus. 20. NO CODE, NO CPR, NO VENT. RECOMMENDATIONS AND DISCUSSION: In this 56-year-old gentleman who presented with multiple complex medical issues, we will monitor the patient closely, continue the current medication, continue with symptomatic treatment. Otherwise, continue the empiric antibiotics. Guarded prognosis. Further recommendations to follow. See orders for further details.
[2016-10-11] MEDS: HYDROmorphone 1 MG/ML 1 ML SYRINGE IVP PRN (15:51)
[2016-10-11 17:21] LABS: Glucose,Whole Blood 101 mg/dL (75-99)
[2016-10-11 19:58] LABS: Glucose,Whole Blood 130 mg/dL (75-99)
[2016-10-11] MEDS: traZODone HCL 100 MG TAB PO SCH (22:34)
[2016-10-11] MEDS ORDERED: IPRATROPIUM-ALBUTEROL 3 ML NEB INHALATION PRN (22:39)
[2016-10-12] MEDS: PIPERACILLIN-TAZOBACTAM 3.375 GM in DEXTROSE/WATER 1 50ML.BAG IVPB SCH ×2 (00:31→08:25)
[2016-10-12 07:19] LABS: Basophils % (A) 1 %; CH 31.8; CHCM 32.8; Eosinophils # (A) 0.1 k/uL (0-0.7); Eosinophils % (A) 2 %; HCT 36.4 % (39.0-53.0); HDW 2.64; HGB 11.6 gm/dL (13.0-17.5); Luc # (Auto) 0.13; Luc % (Auto) 3; Lymphocytes # (A) 1.8 k/uL (1.0-4.8); Lymphocytes % (A) 41 %; MCH 31.2 pg (25.0-35.0); MCV 97.5 fL (80.0-100.0); Mean Platelet Volume 7.5; Monocytes # (A) 0.3 k/uL (0-1.0); Monocytes % (A) 6 %; Neutrophils # (A) 2.1 k/uL (1.3-7.7); Neutrophils % (A) 48 %; RBC 3.74 m/uL (4.30-5.90); WBC 4.3 k/uL (3.8-10.6); WBC (Perox) 4.32
[2016-10-12 07:23] LABS: Glucose,Whole Blood 202 mg/dL (75-99)
[2016-10-12 07:48] LABS: Anion Gap 8 mmol/L; Blood Urea Nitrogen 11 mg/dL (9-20); Calcium 8.5 mg/dL (8.4-10.2); Carbon Dioxide 23 mmol/L (22-30); Chloride 104 mmol/L (98-107); Glucose 210 mg/dL (74-99); Non-African American GFR(MDRD) >60 (>60 ml/min/1.73 sqM); Potassium 3.8 mmol/L (3.5-5.1); Sodium 135 mmol/L (137-145)
[2016-10-12] MEDS: MULTIVITAMINS, THERA 1 EACH TAB PO SCH (07:58)
[2016-10-12] MEDS: CALCIUM CARBONATE 500 MG CHEWABLE PO SCH (07:58)
[2016-10-12] MEDS: METOPROLOL TARTRATE 25 MG TAB PO SCH (07:58)
[2016-10-12] MEDS: FOLIC ACID 1 MG TAB PO SCH (07:58)
[2016-10-12] MEDS: LEVOFLOXACIN 750 MG TAB PO SCH (07:58)
[2016-10-12] MEDS: PANTOPRAZOLE 40 MG/10 ML VIAL IVP SCH (07:58)
[2016-10-12] MEDS: HEPARIN SODIUM,PORCINE 5,000 UNIT/ML 1 ML VIAL SQ SCH (07:58)
[2016-10-12] MEDS: LISINOPRIL 10 MG TAB PO SCH (07:59)
[2016-10-12] MEDS: GABAPENTIN 100 MG CAP PO SCH (07:59)
[2016-10-12] MEDS: THIAMINE 100 MG TAB PO SCH (07:59)
[2016-10-12] MEDS: METOCLOPRAMIDE 5 MG TAB PO SCH (07:59)
[2016-10-12] MEDS: INSULIN GLARGINE 100 UNIT/ML 10 ML VIAL SQ SCH (08:12)
[2016-10-12] MEDS: HYDROmorphone 1 MG/ML 1 ML SYRINGE IVP PRN (08:13)
[2016-10-12] MEDS: INSULIN LISPRO (humaLOG) 300 UNIT/3 ML VIAL SQ SCH ×4 (08:14→12:44)
[2016-10-12 09:05] VITALS: BP 151/80; PULSE 56; RESP 18; TEMP 98.7
[2016-10-12] MEDS: amLODIPine 5 MG TAB PO SCH (10:38)
[2016-10-12 12:18] LABS: Glucose,Whole Blood 68 mg/dL (75-99)
[2016-10-12 12:34] LABS: Glucose,Whole Blood 85 mg/dL (75-99)
--- NOTE | 2016-10-13 15:45 | DS ---
DATE OF ADMISSION: 10/10/2016 DATE OF DISCHARGE: 10/12/2016 FINAL DIAGNOSES: 1. Diabetes mellitus type 2 uncontrolled, with acute diabetic ketoacidosis present on admission. 2. Change in mental status, metabolic encephalopathy, multifactorial. 3. Possible right lower lobe pneumonia, possibly aspiration. 4. Hyperkalemia. 5. Nausea and vomiting, possible gastritis and diabetic gastroparesis. 6. Anemia, microcytic, chronic disease. 7. History of congestive heart failure with chronic diastolic dysfunction, ejection 50%. 8. Chronic kidney disease stage III history. 9. History of hypertension essential. 10. History of pneumonia. 11. History of diabetic gastroparesis. 12. History of peripheral neuropathy secondary to Type 2 diabetes mellitus. 13. History of peptic ulcer disease and duodenal ulcer and gastritis with erosions previously. 14. History of rheumatoid arthritis. 15. History of degenerative joint disease and chronic back pain. 16. History of eczema. 17. History of psoriasis. 18. History of narcotic abuse, cocaine abuse and alcohol abuse remotely. 19. History of methicillin-resistant Staphylococcus aureus. 20. NO CODE, NO CPR, NO VENTILATOR. DISCHARGE DISPOSITION: The patient will be discharged in a stable condition with guarded prognosis. HISTORY OF PRESENT ILLNESS: This 56-year-old gentleman with a past medical history of multiple medical problems was admitted with acute diabetic ketoacidosis. The patient was treated with insulin drip. The patient improved significantly. The patient also had features of pneumonia. The patient also treated with antibiotics. On exam, vital signs stable. CARDIOVASCULAR: S1, S2 muffled. A few rhonchi. ABDOMEN: Soft. Nervous system: No focal deficits. The patient is being discharged in stable condition with guarded prognosis with the following advice and medications: 1. Diet is 1800 calorie ADA cardiac. 2. Accu-Cheks a.c. and q.h.s. results to Dr. Sofia Emanuel. 3. Activity limited until follow-up. 4. Follow-up with Dr. Sofia Emanuel in one to two days. Medications are as follows: 1. Norvasc 5 mg p.o. daily. 2. TUMS 500 mg p.o. t.i.d. 3. Lotrimin one application daily p.r.n. 4. Pepcid 40 mg q.h.s. 5. Folic acid 1 mg p.o. daily. 6. Neurontin 100 mg p.o. t.i.d. 7. Motrin 800 mg q.8 p.r.n. 8. Lantus 30 units subcu with breakfast. 9. Humalog 8 units a.c. t.i.d. with meals. 10. Levaquin 500 mg p.o. daily for 5 days. 11. Zestril 10 mg p.o. daily. 12. Reglan 5 mg p.o. t.i.d. 13. Lopressor 25 mg p.o. b.i.d. 14. Multivitamin 1 p.o. daily. 15. Prilosec 40 mg a.c. daily. 16. MiraLax 17 grams daily. 17. Carafate 1 gram p.o. a.c. and at bedtime. 18. Thiamin 100 mg p.o. daily. 19. Desyrel. 20. Trazodone 200 mg p.o. q.h.s. Home care is also being arranged. Once again, patient will be discharged in stable condition with guarded prognosis.
== END 2016-10-12 14:25 | disposition home or self-care (01) | DRG 637 ==
LOC: EC 06:51 → 6SEL 10:32 → 5MS5E 10-11 12:55
PROVIDERS: ADMIT Hospitalist; ATTEND Hospitalist
DX: E13.10 Other specified diabetes mellitus with ketoacidosis without coma (principal); G93.41 Metabolic encephalopathy; J69.0 Pneumonitis due to inhalation of food and vomit; I13.0 Hypertensive heart and chronic kidney disease with heart failure and stage 1 through stage 4 chronic kidney disease, or unspecified chronic kidney disease; I50.32 Chronic diastolic (congestive) heart failure; E87.5 Hyperkalemia; K31.84 Gastroparesis; N18.3 Chronic kidney disease, stage 3 (moderate); D50.9 Iron deficiency anemia, unspecified; D63.8 Anemia in other chronic diseases classified elsewhere; E11.22 Type 2 diabetes mellitus with diabetic chronic kidney disease; E11.42 Type 2 diabetes mellitus with diabetic polyneuropathy; E11.43 Type 2 diabetes mellitus with diabetic autonomic (poly)neuropathy; M06.9 Rheumatoid arthritis, unspecified; G89.29 Other chronic pain; M54.9 Dorsalgia, unspecified; L40.9 Psoriasis, unspecified; M19.90 Unspecified osteoarthritis, unspecified site; L30.9 Dermatitis, unspecified; K29.00 Acute gastritis without bleeding; Z79.4 Long term (current) use of insulin; Z79.899 Other long term (current) drug therapy; Z86.14 Personal history of Methicillin resistant Staphylococcus aureus infection; Z66 Do not resuscitate; Z82.49 Family history of ischemic heart disease and other diseases of the circulatory system
CPT/HCPCS: 36415; 71020; 74000; 80048; 80053; 80306; 80320; 81003; 82009; 82150; 83520; 83690; 83735; 84100; 85025; 87040; 96361; 96365; 96367; 99291

== ENCOUNTER 2016-10-18 10:42 | Inpatient (IN) | payer OTHER ==
[2016-10-18 11:20] LABS: Glucose,Whole Blood >600 mg/dL (75-99)
[2016-10-18] MEDS ORDERED: SODIUM CHLORIDE 0.9% 1,000 ML IV STA (12:03)
[2016-10-18] MEDS ORDERED: INSULIN REGULAR BOLUS (FROM DRIP BAG) IV ONE ×2 (12:03→17:51)
[2016-10-18] MEDS ORDERED: ONDANSETRON 4 MG/2 ML VIAL IVP STA (12:28)
[2016-10-18] MEDS ORDERED: INSULIN LISPRO (humaLOG) 300 UNIT/3 ML VIAL SQ SCH ×2 (12:30→17:30)
[2016-10-18 12:34] LABS: ALT 68 U/L (21-72); AST 147 U/L (17-59); Alkaline Phosphatase 232 U/L (38-126); Amylase 97 U/L (30-110); Anion Gap 29 mmol/L; Blood Urea Nitrogen 17 mg/dL (9-20); Carbon Dioxide 12 mmol/L (22-30); Chloride 92 mmol/L (98-107); Non-African American GFR(MDRD) >60 (>60 ml/min/1.73 sqM); Potassium 5.1 mmol/L (3.5-5.1); Sodium 133 mmol/L (137-145); Total Bilirubin 1.2 mg/dL (0.2-1.3); Total Protein 7.5 g/dL (6.3-8.2)
[2016-10-18] MEDS: SODIUM CHLORIDE 0.9% 2,000 ML IV ONE ×2 (12:34→13:56)
[2016-10-18 12:39] LABS: Basophils % (A) 0 %; CH 31.2; CHCM 30.5; Eosinophils # (A) 0.1 k/uL (0-0.7); Eosinophils % (A) 2 %; HCT 43.2 % (39.0-53.0); HDW 2.75; HGB 13.4 gm/dL (13.0-17.5); Hypochromasia Moderate; Luc # (Auto) 0.15; Luc % (Auto) 2; Lymphocytes # (A) 1.9 k/uL (1.0-4.8); Lymphocytes % (A) 28 %; MCH 31.8 pg (25.0-35.0); MCHC 30.9 g/dL (31.0-37.0); Macrocytosis Slight; Mean Platelet Volume 8.2; Monocytes # (A) 0.4 k/uL (0-1.0); Monocytes % (A) 6 %; Neutrophils # (A) 4.3 k/uL (1.3-7.7); Neutrophils % (A) 62 %; RDW 14.2 % (11.5-15.5); WBC (Perox) 7.08
[2016-10-18 12:42] LABS: MCV 102.8 fL (80.0-100.0)
[2016-10-18 12:55] LABS: Glucose 766 mg/dL (74-99)
[2016-10-18 12:59] LABS: Creatine Kinase MB 3.2 ng/mL (0.0-2.4)
[2016-10-18] MEDS ORDERED: INSULIN REGULAR 100 UNIT/ML VIAL IV ONE (12:59)
[2016-10-18] MEDS ORDERED: INSULIN REGULAR 100 UNIT in SODIUM CHLORIDE 0.9% 100 ML IV ONE (13:01)
--- NOTE | 2016-10-18 13:05 | ED ---
Recheck HPI - General Chief Complaint: Recheck/Abnormal Lab/Rx Stated Complaint: High Blood Sugar Time Seen by Provider: 10/18/16 11:54 Source: patient, EMS, RN notes reviewed, old records reviewed Mode of arrival: EMS - History of Present Illness Initial Comments: This is a 56-year-old male with a history of diabetes and chronic renal failure with dialysis who is back today for complaints of abdominal pain with nausea vomiting. He states he has not had dialysis since this past Friday which was a week ago. He complains of some nonspecific upper abdominal pain his blood sugar was noted to be very high. He feels weak and lethargic. There is similar to previous recent admissions. - Related Data Home Medications Medication Instructions Recorded Confirmed Metoprolol Tartrate [Lopressor] 25 mg PO BID 08/05/16 10/18/16 traZODone HCL [Desyrel] 200 mg PO HS 08/05/16 10/18/16 Clotrimazole Cream [Lotrimin Cream] 1 applic TOPICAL BID PRN 08/30/16 10/18/16 Famotidine [Pepcid] 40 mg PO HS 10/06/16 10/18/16 Ibuprofen [Motrin] 800 mg PO Q8HR PRN 10/06/16 10/18/16 amLODIPine [Norvasc] 5 mg PO DAILY 10/06/16 10/18/16 Previous Rx's Medication Instructions Recorded Folic Acid 1 mg PO DAILY #30 tablet 07/16/16 Multivitamins, Thera [Multivitamin 1 tab PO DAILY #30 tablet 07/16/16 (formulary)] Thiamine [Vitamin B-1] 100 mg PO DAILY #30 tablet 07/16/16 Lisinopril [Zestril] 10 mg PO DAILY #30 tab 07/25/16 Omeprazole [PriLOSEC] 40 mg PO AC-BRKFST #30 capsule. 07/25/16 Polyethylene Glycol 3350 [Miralax] 17 gm PO DAILY PRN #30 packet 07/25/16 Calcium Carbonate [Tums] 500 mg PO TID #1 chew 09/02/16 Gabapentin [Neurontin] 100 mg PO TID #60 cap 09/02/16 INSULIN LISPRO (humaLOG) [humaLOG 8 unit SQ AC-TID #1 vial 09/02/16 (formulary)] Insulin Glargine [Lantus] 30 unit SQ W/BRKFST #1 vial 10/07/16 Metoclopramide HCl [Reglan] 5 mg PO TID #30 tablet 10/07/16 Levofloxacin [Levaquin] 500 mg PO DAILY #5 tab 10/12/16 Sucralfate [Carafate] 1 gm PO ACHS #120 tablet 10/12/16 Allergies Allergy/AdvReac Type Severity Reaction Status Date / Time No Known Allergies Allergy Verified 10/18/16 11:28 Review of Systems ROS Statement: Those systems with pertinent positive or pertinent negative responses have been documented in the HPI. ROS Other: All systems not noted in ROS Statement are negative. Past Medical History Past Medical History: Heart Failure, Diabetes Mellitus, Hypertension, Pneumonia , Renal Disease, Rheumatoid Arthritis (RA), Skin Disorder Additional Past Medical History / Comment(s): IDDM poorly controlled, DKAs, diabetic gastroparesis, bilateral feet/hands peripheral neuropathy, blood behind both eyes, peptic ulcer disease/duodenal ulcer/gastritis with erosions, previous hospitalization for pulmonary edema and bilateral pleural effusion and subsequent evaluation showed a preserved LV function with an ejection fraction of around 50%, CKD stage III, normocytic chronic anemia, rheumatoid arthritis, DJD, chronic back pain, osteoarthritis-generalized, eczema, psoriasis, ear infections, hx of narcotic abuse, cocaine abuse and alcohol abuse. History of Any Multi-Drug Resistant Organisms: MRSA Date of last positivie culture/infection: 02/25/08 MDRO Source:: Neck Past Surgical History: Adenoidectomy, Tonsillectomy Additional Past Surgical History / Comment(s): colonoscopy 2008, EGD, lt great toe amp, and part of 2nd toe. Past Anesthesia/Blood Transfusion Reactions: No Reported Reaction Past Psychological History: No Psychological Hx Reported Additional Psychological History / Comment(s): PT STATED HE LIVES WITH ROOM MATES ,NO PETS. NO OUTSIDE SERVICES CURRENTLY. 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 06/18/16 toxicology + for cocaine. 06/29/16 toxicology + or cocaine. 07/06/16 toxicology + for cocaine. toxicology + cocaine 08/17/16 - Past Family History Father Family Medical History: Diabetes Mellitus, Hypertension Additional Family Medical History / Comment(s): father Mother Additional Family Medical History / Comment(s): pyschiatric issues. General Exam - General Exam Comments Initial Comments: This is a well-developed well-nourished awake alert oriented times female he is actively retching. General appearance: alert, in no apparent distress Head exam: Present: atraumatic, normocephalic, normal inspection Eye exam: Present: normal appearance, PERRL, EOMI. Absent: scleral icterus, conjunctival injection, periorbital swelling ENT exam: Present: mucous membranes dry Neck exam: Present: normal inspection. Absent: tenderness, meningismus, lymphadenopathy Respiratory exam: Present: normal lung sounds bilaterally. Absent: respiratory distress, wheezes, rales, rhonchi, stridor Cardiovascular Exam: Present: regular rate, normal rhythm, normal heart sounds. Absent: systolic murmur, diastolic murmur, rubs, gallop, clicks GI/Abdominal exam: Present: soft, tenderness (Mild epigastric tenderness palpation no guarding rebound masses or bruits), normal bowel sounds. Absent: distended, guarding, rebound, rigid Extremities exam: Present: normal inspection, full ROM, normal capillary refill , pedal edema. Absent: tenderness, joint swelling, calf tenderness Back exam: Present: normal inspection Neurological exam: Present: alert, oriented X3, CN II-XII intact Psychiatric exam: Present: normal affect, normal mood Skin exam: Present: warm, dry, intact, normal color. Absent: rash Course Vital Signs 10/18/16 10/18/16 10/18/16 10:45 16:00 16:23 Temperature 97.8 F 98.5 F Pulse Rate 96 95 92 Respiratory 24 18 Rate Blood Pressure 170/91 116/62 O2 Sat by Pulse 99 98 Oximetry 10/18/16 16:32 Temperature Pulse Rate 90 Respiratory Rate Blood Pressure O2 Sat by Pulse Oximetry - Reevaluation(s) Reevaluation #1: 10/18/16 17:45 Patient did require Medical Decision Making - Medical Decision Making The patient will be admitted for DKA treatment and dialysis. - Lab Data Result diagrams: 10/18/16 11:35 10/18/16 11:35 Lab Results 10/18/16 10/18/16 10/18/16 Range/Units 11:17 11:35 11:35 WBC (3.8-10.6) k/uL RBC (4.30-5.90) m/uL Hgb (13.0-17.5) gm/dL Hct (39.0-53.0) % MCV (80.0-100.0) fL MCH (25.0-35.0) pg MCHC (31.0-37.0) g/dL RDW (11.5-15.5) % Plt Count (150-450) k/uL Neutrophils % % Lymphocytes % % Monocytes % % Eosinophils % % Basophils % % Neutrophils # (1.3-7.7) k/uL Lymphocytes # (1.0-4.8) k/uL Monocytes # (0-1.0) k/uL Eosinophils # (0-0.7) k/uL Basophils # (0-0.2) k/uL Hypochromasia Macrocytosis Sodium 133 L (137-145) mmol/L Potassium 5.1 (3.5-5.1) mmol/L Chloride 92 L (98-107) mmol/L Carbon Dioxide 12 L (22-30) mmol/L Anion Gap 29 mmol/L BUN 17 (9-20) mg/dL Creatinine 1.20 (0.66-1.25) mg/dL Est GFR (MDRD) Af Amer >60 (>60 ml/min/1.73 sqM) Est GFR (MDRD) Non-Af >60 (>60 ml/min/1.73 sqM) Glucose 766 H* (74-99) mg/dL POC Glucose (mg/dL) >600 H (75-99) mg/dL POC Glu [employer] ID Cynthia Palomares [address] Glu mg/dL mg/dL Hemoglobin A1c (4.2-6.1) % Calcium 10.0 (8.4-10.2) mg/dL Magnesium 2.0 (1.6-2.3) mg/dL Total Bilirubin 1.2 (0.2-1.3) mg/dL AST 147 H (17-59) U/L ALT 68 (21-72) U/L Alkaline Phosphatase 232 H (38-126) U/L Total Creatine Kinase 186 H (55-170) U/L CK-MB (CK-2) 3.2 H* (0.0-2.4) ng/mL CK-MB (CK-2) Rel Index 1.7 Total Protein 7.5 (6.3-8.2) g/dL Albumin 4.6 (3.5-5.0) g/dL Amylase 97 (30-110) U/L Lipase 41 (23-300) U/L Urine Opiates Screen (NotDetected) Ur Oxycodone Screen (NotDetected) Urine Methadone Screen (NotDetected) Ur Propoxyphene Screen (NotDetected) Ur Barbiturates Screen (NotDetected) U Tricyclic Antidepress (NotDetected) Ur Phencyclidine Scrn (NotDetected) Ur Amphetamines Screen (NotDetected) U Methamphetamines Scrn (NotDetected) U Benzodiazepines Scrn (NotDetected) Urine Cocaine Screen (NotDetected) U Marijuana (THC) Screen (NotDetected) Acetone, Qual Positive (Negative) 10/18/16 10/18/16 10/18/16 Range/Units 11:35 11:35 14:09 WBC 7.0 (3.8-10.6) k/uL RBC 4.20 L (4.30-5.90) m/uL Hgb 13.4 (13.0-17.5) gm/dL Hct 43.2 (39.0-53.0) % MCV 102.8 H D (80.0-100.0) fL MCH 31.8 (25.0-35.0) pg MCHC 30.9 L (31.0-37.0) g/dL RDW 14.2 (11.5-15.5) % Plt Count 327 (150-450) k/uL Neutrophils % 62 % Lymphocytes % 28 % Monocytes % 6 % Eosinophils % 2 % Basophils % 0 % Neutrophils # 4.3 (1.3-7.7) k/uL Lymphocytes # 1.9 (1.0-4.8) k/uL Monocytes # 0.4 (0-1.0) k/uL Eosinophils # 0.1 (0-0.7) k/uL Basophils # 0.0 (0-0.2) k/uL Hypochromasia Moderate Macrocytosis Slight Sodium (137-145) mmol/L Potassium (3.5-5.1) mmol/L Chloride (98-107) mmol/L Carbon Dioxide (22-30) mmol/L Anion Gap mmol/L BUN (9-20) mg/dL Creatinine (0.66-1.25) mg/dL Est GFR (MDRD) Af Amer (>60 ml/min/1.73 sqM) Est GFR (MDRD) Non-Af (>60 ml/min/1.73 sqM) Glucose (74-99) mg/dL POC Glucose (mg/dL) (75-99) mg/dL POC Glu [employer] ID [address] Glu mg/dL 263 mg/dL Hemoglobin A1c 10.8 H (4.2-6.1) % Calcium (8.4-10.2) mg/dL Magnesium (1.6-2.3) mg/dL Total Bilirubin (0.2-1.3) mg/dL AST (17-59) U/L ALT (21-72) U/L Alkaline Phosphatase (38-126) U/L Total Creatine Kinase (55-170) U/L CK-MB (CK-2) (0.0-2.4) ng/mL CK-MB (CK-2) Rel Index Total Protein (6.3-8.2) g/dL Albumin (3.5-5.0) g/dL Amylase (30-110) U/L Lipase (23-300) U/L Urine Opiates Screen Not Detected (NotDetected) Ur Oxycodone Screen Not Detected (NotDetected) Urine Methadone Screen Not Detected (NotDetected) Ur Propoxyphene Screen Not Detected (NotDetected) Ur Barbiturates Screen Not Detected (NotDetected) U Tricyclic Antidepress Not Detected (NotDetected) Ur Phencyclidine Scrn Not Detected (NotDetected) Ur Amphetamines Screen Not Detected (NotDetected) U Methamphetamines Scrn Not Detected (NotDetected) U Benzodiazepines Scrn Not Detected (NotDetected) Urine Cocaine Screen Detected H (NotDetected) U Marijuana (THC) Screen Not Detected (NotDetected) Acetone, Qual (Negative) 10/18/16 10/18/16 10/18/16 Range/Units 15:06 16:01 16:55 WBC (3.8-10.6) k/uL RBC (4.30-5.90) m/uL Hgb (13.0-17.5) gm/dL Hct (39.0-53.0) % MCV (80.0-100.0) fL MCH (25.0-35.0) pg MCHC (31.0-37.0) g/dL RDW (11.5-15.5) % Plt Count (150-450) k/uL Neutrophils % % Lymphocytes % % Monocytes % % Eosinophils % % Basophils % % Neutrophils # (1.3-7.7) k/uL Lymphocytes # (1.0-4.8) k/uL Monocytes # (0-1.0) k/uL Eosinophils # (0-0.7) k/uL Basophils # (0-0.2) k/uL Hypochromasia Macrocytosis Sodium (137-145) mmol/L Potassium (3.5-5.1) mmol/L Chloride (98-107) mmol/L Carbon Dioxide (22-30) mmol/L Anion Gap mmol/L BUN (9-20) mg/dL Creatinine (0.66-1.25) mg/dL Est GFR (MDRD) Af Amer (>60 ml/min/1.73 sqM) Est GFR (MDRD) Non-Af (>60 ml/min/1.73 sqM) Glucose (74-99) mg/dL POC Glucose (mg/dL) >600 H 480 H 340 H (75-99) mg/dL POC Glu [employer] ID Marielle, Cynthia Marielle, Cynthia Marielle, Cynthia [address] Glu mg/dL mg/dL Hemoglobin A1c (4.2-6.1) % Calcium (8.4-10.2) mg/dL Magnesium (1.6-2.3) mg/dL Total Bilirubin (0.2-1.3) mg/dL AST (17-59) U/L ALT (21-72) U/L Alkaline Phosphatase (38-126) U/L Total Creatine Kinase (55-170) U/L CK-MB (CK-2) (0.0-2.4) ng/mL CK-MB (CK-2) Rel Index Total Protein (6.3-8.2) g/dL Albumin (3.5-5.0) g/dL Amylase (30-110) U/L Lipase (23-300) U/L Urine Opiates Screen (NotDetected) Ur Oxycodone Screen (NotDetected) Urine Methadone Screen (NotDetected) Ur Propoxyphene Screen (NotDetected) Ur Barbiturates Screen (NotDetected) U Tricyclic Antidepress (NotDetected) Ur Phencyclidine Scrn (NotDetected) Ur Amphetamines Screen (NotDetected) U Methamphetamines Scrn (NotDetected) U Benzodiazepines Scrn (NotDetected) Urine Cocaine Screen (NotDetected) U Marijuana (THC) Screen (NotDetected) Acetone, Qual (Negative) - Radiology Data Radiology results: report reviewed (Did review the imaging and report no acute findings.), image reviewed Critical Care Time Critical Care Time: Yes Critical Care Time: 31 minutes of critical care time which includes initial history physical lab and x-rays. Evaluation old charting. Reevaluation patient several occasions. Documentation of this discussed with the admitting physician and admission orders. Some question initially with the admitting physician was today. Disposition Clinical Impression: Diabetic ketoacidosis, Abdominal pain Disposition: ADMITTED IP TO THIS [facility] Condition: Stable Referrals: Sofia Emanuel MD [Primary Care Provider] - 1-2 days
--- NOTE | 2016-10-18 13:53 | XR ---
EXAMINATION TYPE: XR chest 2V DATE OF EXAM: 10/18/2016 COMPARISON: 10/11/2016 HISTORY: Shortness of breath TECHNIQUE: Frontal and lateral views of the chest are obtained. FINDINGS: Scattered senescent parenchymal changes noted. Hyperinflation compatible with COPD. No evidence for infiltrate. No evidence for atelectasis. Heart size is stable. Mediastinal structures are stable and grossly unremarkable. No evidence for hilar prominence. Degenerative changes dorsal spine. IMPRESSION: 1. No evidence for acute pulmonary disease.
[2016-10-18 14:10] LABS: Hemoglobin A1C 10.8 % (4.2-6.1)
[2016-10-18] MEDS ORDERED: HYDROmorphone 1 MG/ML 1 ML SYRINGE IVP STA (14:34)
[2016-10-18] MEDS ORDERED: LORazepam 2 MG/ML SYRINGE IV STA (14:34)
[2016-10-18] MEDS ORDERED: IPRATROPIUM-ALBUTEROL 3 ML NEB INHALATION STA (14:51)
[2016-10-18 15:09] LABS: Glucose,Whole Blood >600 mg/dL (75-99)
[2016-10-18 16:04] LABS: Glucose,Whole Blood 480 mg/dL (75-99)
[2016-10-18 16:58] LABS: Glucose,Whole Blood 340 mg/dL (75-99)
[2016-10-18] MEDS ORDERED: ONDANSETRON 4 MG/2 ML VIAL IVP PRN (17:46)
[2016-10-18] MEDS ORDERED: NALOXONE 0.4 MG/ML 1 ML VIAL IV PRN (17:46)
[2016-10-18] MEDS ORDERED: POLYETHYLENE GLYCOL 3350 17 GM POWD.PACK PO PRN (17:50)
[2016-10-18] MEDS ORDERED: CLOTRIMAZOLE 1% CREAM 15 GM TUBE TOPICAL PRN (17:50)
[2016-10-18] MEDS ORDERED: IBUPROFEN 800 MG TAB PO PRN (17:50)
[2016-10-18] MEDS ORDERED: Magnesium Replacement Protocol 1 EACH MISC MISCELLANE PRN (17:51)
[2016-10-18] MEDS ORDERED: Potassium Replacement Protocol 1 EACH MISC MISCELLANE PRN (17:51)
[2016-10-18] MEDS ORDERED: INSULIN REGULAR 100 UNIT in SODIUM CHLORIDE 0.9% 100 ML IV SCH (18:00)
[2016-10-18] MEDS ORDERED: SODIUM CHLORIDE 0.9% 1,000 ML IV SCH (18:00)
[2016-10-18 18:23] LABS: Glucose,Whole Blood 231 mg/dL (75-99)
[2016-10-18 19:04] LABS: Glucose,Whole Blood 216 mg/dL (75-99)
[2016-10-18] MEDS: D5-0.45% NACL WITH KCL 20MEQ/L 1,000 ML IV SCH ×2 (19:09→23:58)
[2016-10-18 20:27] LABS: Glucose,Whole Blood 189 mg/dL (75-99)
[2016-10-18] MEDS: SODIUM CHLORIDE 0.9% 1,000 ML IV SCH (20:40)
[2016-10-18] MEDS ORDERED: FAMOTIDINE 20 MG TAB PO SCH (21:00)
[2016-10-18] MEDS ORDERED: traZODone HCL 100 MG TAB PO SCH (21:00)
[2016-10-18 21:49] LABS: Potassium 5.3 mmol/L (3.5-5.1)
[2016-10-18] MEDS: SUCRALFATE 1 GM TAB PO SCH (22:43)
[2016-10-18] MEDS: METOPROLOL TARTRATE 25 MG TAB PO SCH (22:44)
[2016-10-18] MEDS: PANTOPRAZOLE 40 MG/10 ML VIAL IV SCH (22:44)
[2016-10-18] MEDS: GABAPENTIN 100 MG CAP PO SCH (22:44)
[2016-10-18] MEDS: METOCLOPRAMIDE 5 MG TAB PO SCH (22:44)
[2016-10-18] MEDS: CALCIUM CARBONATE 500 MG CHEWABLE PO SCH (22:44)
[2016-10-18 22:53] LABS: Glucose,Whole Blood 168 mg/dL (75-99)
[2016-10-18] MEDS ORDERED: INSULIN DETEMIR 100 UNIT/ML 10 ML VIAL SQ SCH (23:00)
[2016-10-18] MEDS: INSULIN LISPRO (humaLOG) 300 UNIT/3 ML VIAL SQ SCH (23:16)
[2016-10-19 01:54] LABS: Potassium 4.2 mmol/L (3.5-5.1)
[2016-10-19] MEDS: SODIUM CHLORIDE 0.9% 1,000 ML IV SCH ×3 (03:07→12:23)
[2016-10-19 05:57] LABS: Glucose,Whole Blood 66 mg/dL (75-99)
[2016-10-19] MEDS: INSULIN LISPRO (humaLOG) 300 UNIT/3 ML VIAL SQ SCH ×2 (06:03→12:22)
[2016-10-19 06:23] LABS: Glucose,Whole Blood 66 mg/dL (75-99)
[2016-10-19] MEDS: CALCIUM CARBONATE 500 MG CHEWABLE PO SCH ×2 (06:27→12:18)
[2016-10-19] MEDS: SUCRALFATE 1 GM TAB PO SCH ×2 (06:27→12:18)
[2016-10-19 06:43] LABS: Glucose,Whole Blood 100 mg/dL (75-99)
[2016-10-19] MEDS ORDERED: NON-FORMULARY DRUG (Omeprazole 40 MG) PO SCH (07:30)
[2016-10-19] MEDS ORDERED: LISINOPRIL 10 MG TAB PO SCH (09:00)
[2016-10-19] MEDS ORDERED: amLODIPine 5 MG TAB PO SCH (09:00)
[2016-10-19] MEDS: METOCLOPRAMIDE 5 MG TAB PO SCH (09:39)
[2016-10-19] MEDS: GABAPENTIN 100 MG CAP PO SCH (09:39)
[2016-10-19] MEDS: METOPROLOL TARTRATE 25 MG TAB PO SCH (09:39)
[2016-10-19] MEDS: PANTOPRAZOLE 40 MG/10 ML VIAL IV SCH (09:40)
[2016-10-19 10:10] VITALS: TEMP 98.1
[2016-10-19 11:18] VITALS: BMI 23.6
[2016-10-19 11:55] LABS: Glucose,Whole Blood 172 mg/dL (75-99)
[2016-10-19] MEDS ORDERED: THIAMINE 100 MG TAB PO SCH (12:00)
[2016-10-19] MEDS ORDERED: MULTIVITAMINS, THERA 1 EACH TAB PO SCH (12:00)
[2016-10-19] MEDS ORDERED: FOLIC ACID 1 MG TAB PO SCH (12:00)
[2016-10-19 12:29] VITALS: BP 108/59; PULSE 79; RESP 18
[2016-10-19] MEDS ORDERED: MAG HYDROX/AL HYDROX/SIMETH 30 ML, HYOSCYAMINE ELIXIR 10 ML, CIMETIDINE HCL 300 MG, LID... PO STA ×8 (12:35→14:52)
--- NOTE | 2016-10-19 19:16 | P.HPIM ---
History of Present Illness H&P Date: 10/19/16 (dc summary as well) 56 yr old , non compliant with medications who is admitted frequently with DKA comes into the hospital with complaints of vague abdominal pain , nausea, and drowsiness. Pt was noted to have an aniongap metabolic acidosis, hyperglycemia and ketonemia consistent with DKA. Pt was started on DKA protocol, gap was closed, tolerating diet at this time Pt was noted to have a drug screen that is positive Has had multiple issues with compliance. Documented issues with pain seeking behaviour toelrated diet today however complaints of epigastric pain. NO episodes of emesis is noted. Review of Systems All systems: negative (noted in HPI) Past Medical History Past Medical History: Heart Failure, Diabetes Mellitus, Hypertension, Pneumonia , Renal Disease, Rheumatoid Arthritis (RA), Skin Disorder Additional Past Medical History / Comment(s): IDDM poorly controlled, DKAs, diabetic gastroparesis, bilateral feet/hands peripheral neuropathy, blood behind both eyes, peptic ulcer disease/duodenal ulcer/gastritis with erosions, previous hospitalization for pulmonary edema and bilateral pleural effusion and subsequent evaluation showed a preserved LV function with an ejection fraction of around 50%, CKD stage III, normocytic chronic anemia, rheumatoid arthritis, DJD, chronic back pain, osteoarthritis-generalized, eczema, psoriasis, ear infections, hx of narcotic abuse, cocaine abuse and alcohol abuse. History of Any Multi-Drug Resistant Organisms: MRSA Date of last positivie culture/infection: 02/25/08 MDRO Source:: Neck Past Surgical History: Adenoidectomy, Tonsillectomy Additional Past Surgical History / Comment(s): colonoscopy 2008, EGD, lt great toe amp, and part of 2nd toe. Past Anesthesia/Blood Transfusion Reactions: No Reported Reaction Past Psychological History: No Psychological Hx Reported Additional Psychological History / Comment(s): PT STATED HE LIVES WITH ROOM MATES ,NO PETS. NO OUTSIDE SERVICES CURRENTLY. 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 06/18/16 toxicology + for cocaine. 06/29/16 toxicology + or cocaine. 07/06/16 toxicology + for cocaine. toxicology + cocaine 08/17/16, 10/18/16 toxicology + cocaine - Past Family History Father Family Medical History: Diabetes Mellitus, Hypertension Additional Family Medical History / Comment(s): father Mother Additional Family Medical History / Comment(s): pyschiatric issues. Medications and Allergies Home Medications Medication Instructions Recorded Confirmed Type Metoprolol Tartrate [Lopressor] 25 mg PO BID 08/05/16 10/18/16 History traZODone HCL [Desyrel] 200 mg PO HS 08/05/16 10/18/16 History Clotrimazole Cream [Lotrimin Cream] 1 applic TOPICAL BID PRN 08/30/16 10/18/16 History Famotidine [Pepcid] 40 mg PO HS 10/06/16 10/18/16 History Ibuprofen [Motrin] 800 mg PO Q8HR PRN 10/06/16 10/18/16 History amLODIPine [Norvasc] 5 mg PO DAILY 10/06/16 10/18/16 History Allergies Allergy/AdvReac Type Severity Reaction Status Date / Time No Known Allergies Allergy Verified 10/19/16 01:31 Physical Exam Vitals: Vital Signs Temp Pulse Pulse Resp BP BP Pulse Ox 10/19/16 12:00 79 18 108/59 95 10/19/16 08:00 98.1 F 67 16 120/70 98 10/19/16 04:00 67 16 120/65 95 10/19/16 00:00 97.3 F L 78 18 156/79 100 10/18/16 20:41 97.9 F 79 16 156/76 98 Intake and Output 10/19/16 10/19/16 10/19/16 06:59 14:59 22:59 Intake Total 600 240 Balance 600 240 Intake: IV 600 Sodium Chloride 0.9% 1, 600 000 ml @ 200 mls/hr IV . Q5H [facility] Rx#:[id number] Oral 240 Other: Voiding Method Toilet # Voids 1 1 Weight 72.7 kg 72.7 kg Patient Weight 10/20/16 06:59 Weight 72.7 kg - Constitutional General appearance: no acute distress - EENT Eyes: EOMI, PERRLA - Neck Neck: normal ROM - Respiratory Respiratory: bilateral: CTA, negative: dullness, rales, rhonchi - Cardiovascular Rhythm: regular Heart sounds: normal: S1, S2 Abnormal Heart Sounds: no systolic murmur - Gastrointestinal General gastrointestinal: soft, tenderness (diffusely no organomegaly.) - Integumentary Integumentary: normal - Neurologic Neurologic: CNII-XII intact - Psychiatric Psychiatric: A&O x's 3, appropriate affect Results CBC & Chem 7: 10/18/16 11:35 10/19/16 01:08 Labs: Abnormal Lab Results - Last 24 Hours (Table) 10/18/16 10/18/16 10/18/16 Range/Units 20:24 21:15 22:52 Potassium 5.3 H (3.5-5.1) mmol/L Chloride 108 H (98-107) mmol/L Glucose 159 H (74-99) mg/dL POC Glucose (mg/dL) 189 H 168 H (75-99) mg/dL 10/19/16 10/19/16 10/19/16 Range/Units 01:08 05:56 06:21 Potassium (3.5-5.1) mmol/L Chloride (98-107) mmol/L Glucose 197 H (74-99) mg/dL POC Glucose (mg/dL) 66 L 66 L (75-99) mg/dL 10/19/16 10/19/16 Range/Units 06:41 11:53 Potassium (3.5-5.1) mmol/L Chloride (98-107) mmol/L Glucose (74-99) mg/dL POC Glucose (mg/dL) 100 H 172 H (75-99) mg/dL Thrombosis Risk Factor Assmnt - Choose All That Apply Any of the Below Risk Factors Present?: Yes Each Factor Represents 1 point: Age 41-60 years, Obesity (BMI >25) Other Risk Factors: No Other congenital or acquired thrombophilia - If yes, enter type in comment: No Thrombosis Risk Factor Assessment Total Risk Factor Score: 2 Thrombosis Risk Factor Assessment Level: Low Risk Assessment and Plan Plan: DKA Polysubstance use HTN H/o chronic renal failure Dyslipidemia Plan Gap was closed tolerating diet dc home discussed compliance and cessation of use of illicit drugs home regimen of insulin.
== END 2016-10-19 15:19 | disposition home or self-care (01) | DRG 638 ==
LOC: EC 10:42 → 6SEL 17:47
PROVIDERS: ADMIT Internal Medicine; ATTEND Internal Medicine
DX: E13.10 Other specified diabetes mellitus with ketoacidosis without coma (principal); I13.0 Hypertensive heart and chronic kidney disease with heart failure and stage 1 through stage 4 chronic kidney disease, or unspecified chronic kidney disease; N18.3 Chronic kidney disease, stage 3 (moderate); K31.84 Gastroparesis; E11.43 Type 2 diabetes mellitus with diabetic autonomic (poly)neuropathy; E11.42 Type 2 diabetes mellitus with diabetic polyneuropathy; L40.9 Psoriasis, unspecified; E78.5 Hyperlipidemia, unspecified; M19.91 Primary osteoarthritis, unspecified site; G89.29 Other chronic pain; M54.9 Dorsalgia, unspecified; L30.9 Dermatitis, unspecified; F19.90 Other psychoactive substance use, unspecified, uncomplicated; Z87.11 Personal history of peptic ulcer disease; M06.9 Rheumatoid arthritis, unspecified; Z87.898 Personal history of other specified conditions; Z86.14 Personal history of Methicillin resistant Staphylococcus aureus infection; Z79.4 Long term (current) use of insulin; Z79.899 Other long term (current) drug therapy; Z83.3 Family history of diabetes mellitus
CPT/HCPCS: 36415; 71020; 80051; 80053; 80306; 82009; 82150; 82550; 82553; 82947; 83036; 83690; 83735; 85025; 94640; 96361; 96365; 96375; 99291

== ENCOUNTER 2016-10-20 15:40 | Inpatient (IN) | payer OTHER ==
[2016-10-20 15:48] LABS: Glucose,Whole Blood >600 mg/dL (75-99)
[2016-10-20] MEDS ORDERED: KETOROLAC 30 MG/ML 1 ML VIAL IVP STA (16:17)
[2016-10-20] MEDS ORDERED: ONDANSETRON 4 MG/2 ML VIAL IVP STA (16:17)
[2016-10-20] MEDS ORDERED: SODIUM CHLORIDE 0.9% 2,000 ML IV STA (16:17)
[2016-10-20] MEDS ORDERED: PANTOPRAZOLE 40 MG/10 ML VIAL IVP STA (16:19)
--- NOTE | 2016-10-20 16:22 | ED ---
Abdominal Pain HPI - General Chief Complaint: Abdominal Pain Stated Complaint: Hyperglycemia Time Seen by Provider: 10/20/16 16:00 Source: patient, EMS, RN notes reviewed Mode of arrival: EMS Limitations: no limitations - History of Present Illness Initial Comments: Is a 56-year-old male with a history of insulin-dependent diabetes history of chronic abdominal pain and history of multiple admissions to the emergency department Hospital for the same who is back today with complaints of abdominal pain nausea vomiting and elevated blood sugar this re-glucometers. He was just discharged from the hospital 2 days ago. He denies any other new symptoms other than those stated above. MD Complaint: abdominal pain, other - Related Data Home Medications Medication Instructions Recorded Confirmed Metoprolol Tartrate [Lopressor] 25 mg PO BID 08/05/16 10/20/16 traZODone HCL [Desyrel] 200 mg PO HS 08/05/16 10/20/16 Clotrimazole Cream [Lotrimin Cream] 1 applic TOPICAL BID PRN 08/30/16 10/20/16 Famotidine [Pepcid] 40 mg PO HS 10/06/16 10/20/16 Ibuprofen [Motrin] 800 mg PO Q8HR PRN 10/06/16 10/20/16 amLODIPine [Norvasc] 5 mg PO DAILY 10/06/16 10/20/16 Lisinopril [Zestril] 10 mg PO DAILY 10/20/16 10/20/16 Previous Rx's Medication Instructions Recorded Folic Acid 1 mg PO DAILY #30 tablet 07/16/16 Multivitamins, Thera [Multivitamin 1 tab PO DAILY #30 tablet 07/16/16 (formulary)] Thiamine [Vitamin B-1] 100 mg PO DAILY #30 tablet 07/16/16 Omeprazole [PriLOSEC] 40 mg PO AC-BRKFST #30 capsule.dr 07/25/16 Polyethylene Glycol 3350 [Miralax] 17 gm PO DAILY PRN #30 packet 07/25/16 Calcium Carbonate [Tums] 500 mg PO TID #1 chew 09/02/16 Gabapentin [Neurontin] 100 mg PO TID #60 cap 09/02/16 INSULIN LISPRO (humaLOG) [humaLOG 8 unit SQ AC-TID #1 vial 09/02/16 (formulary)] Metoclopramide HCl [Reglan] 5 mg PO TID #30 tablet 10/07/16 Sucralfate [Carafate] 1 gm PO ACHS #120 tablet 10/12/16 Insulin Detemir [Levemir] 15 unit SQ HS vial 10/19/16 Allergies Allergy/AdvReac Type Severity Reaction Status Date / Time No Known Allergies Allergy Verified 10/20/16 15:42 Review of Systems ROS Statement: Those systems with pertinent positive or pertinent negative responses have been documented in the HPI. ROS Other: All systems not noted in ROS Statement are negative. Past Medical History Past Medical History: Heart Failure, Diabetes Mellitus, Hypertension, Pneumonia , Renal Disease, Rheumatoid Arthritis (RA), Skin Disorder Additional Past Medical History / Comment(s): IDDM poorly controlled, DKAs, diabetic gastroparesis, bilateral feet/hands peripheral neuropathy, blood behind both eyes, peptic ulcer disease/duodenal ulcer/gastritis with erosions, previous hospitalization for pulmonary edema and bilateral pleural effusion and subsequent evaluation showed a preserved LV function with an ejection fraction of around 50%, CKD stage III, normocytic chronic anemia, rheumatoid arthritis, DJD, chronic back pain, osteoarthritis-generalized, eczema, psoriasis, ear infections, hx of narcotic abuse, cocaine abuse and alcohol abuse. History of Any Multi-Drug Resistant Organisms: MRSA Date of last positivie culture/infection: 02/25/08 MDRO Source:: Neck Past Surgical History: Adenoidectomy, Tonsillectomy Additional Past Surgical History / Comment(s): colonoscopy 2008, EGD, lt great toe amp, and part of 2nd toe. Past Anesthesia/Blood Transfusion Reactions: No Reported Reaction Past Psychological History: No Psychological Hx Reported Additional Psychological History / Comment(s): PT STATED HE LIVES WITH ROOM MATES ,NO PETS. NO OUTSIDE SERVICES CURRENTLY. 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 06/18/16 toxicology + for cocaine. 06/29/16 toxicology + or cocaine. 07/06/16 toxicology + for cocaine. toxicology + cocaine 08/17/16, 10/18/16 toxicology + cocaine - Past Family History Father Family Medical History: Diabetes Mellitus, Hypertension Additional Family Medical History / Comment(s): father Mother Additional Family Medical History / Comment(s): pyschiatric issues. General Exam - General Exam Comments Initial Comments: This is a well-developed well-nourished awake alert oriented 3 male he does appear to be in distress Limitations: no limitations General appearance: alert, anxious, in distress Head exam: Present: atraumatic, normocephalic, normal inspection Eye exam: Present: normal appearance, PERRL, EOMI. Absent: scleral icterus, conjunctival injection, periorbital swelling ENT exam: Present: mucous membranes dry Neck exam: Present: normal inspection. Absent: tenderness, meningismus, lymphadenopathy Respiratory exam: Present: normal lung sounds bilaterally. Absent: respiratory distress, wheezes, rales, rhonchi, stridor Cardiovascular Exam: Present: regular rate, normal rhythm, normal heart sounds. Absent: systolic murmur, diastolic murmur, rubs, gallop, clicks GI/Abdominal exam: Present: soft, tenderness, normal bowel sounds. Absent: distended, guarding, rebound, rigid Rectal exam: Present: deferred Extremities exam: Present: normal inspection, full ROM, normal capillary refill , pedal edema. Absent: tenderness, joint swelling, calf tenderness Back exam: Present: normal inspection Neurological exam: Present: alert, oriented X3, CN II-XII intact Psychiatric exam: Present: normal affect, normal mood Skin exam: Present: warm, dry, intact, normal color. Absent: rash Course Vital Signs 10/20/16 10/20/16 15:42 16:56 Temperature 101.4 F H 99.0 F Pulse Rate 95 101 H Respiratory 20 18 Rate Blood Pressure 105/51 113/56 O2 Sat by Pulse 95 98 Oximetry - Reevaluation(s) Reevaluation #1: 10/20/16 17:18 Patient is resting comfortably thus far. Medical Decision Making - Medical Decision Making I did reevaluate the patient patient will be admitted did discuss case with Dr. Lomas patient demonstrates DKA and pneumonia. - Lab Data Result diagrams: 10/20/16 15:56 10/20/16 15:56 Lab Results 06/04/17 06/04/17 06/04/17 Range/Units 15:46 15:56 15:56 WBC (3.8-10.6) k/uL RBC (4.30-5.90) m/uL Hgb (13.0-17.5) gm/dL Hct (39.0-53.0) % MCV (80.0-100.0) fL MCH (25.0-35.0) pg MCHC (31.0-37.0) g/dL RDW (11.5-15.5) % Plt Count (150-450) k/uL Neutrophils % % Lymphocytes % % Monocytes % % Eosinophils % % Basophils % % Neutrophils # (1.3-7.7) k/uL Lymphocytes # (1.0-4.8) k/uL Monocytes # (0-1.0) k/uL Eosinophils # (0-0.7) k/uL Basophils # (0-0.2) k/uL Hypochromasia Macrocytosis Sodium 135 L (137-145) mmol/L Potassium 4.9 (3.5-5.1) mmol/L Chloride 100 (98-107) mmol/L Carbon Dioxide 10 L* (22-30) mmol/L Anion Gap 25 mmol/L BUN 25 H (9-20) mg/dL Creatinine 1.57 H (0.66-1.25) mg/dL Est GFR (MDRD) Af Amer 56 (>60 ml/min/1.73 sqM) Est GFR (MDRD) Non-Af 46 (>60 ml/min/1.73 sqM) Glucose 757 H* (74-99) mg/dL POC Glucose (mg/dL) >600 H (75-99) mg/dL POC Glu [employer] Teacher Daylin Juárez Plasma Lactic Acid Eliazar (0.7-2.0) mmol/L Calcium 8.9 (8.4-10.2) mg/dL Total Bilirubin 0.8 (0.2-1.3) mg/dL AST 87 H (17-59) U/L ALT 49 (21-72) U/L Alkaline Phosphatase 166 H (38-126) U/L Total Creatine Kinase 81 (55-170) U/L CK-MB (CK-2) 1.1 (0.0-2.4) ng/mL CK-MB (CK-2) Rel Index 1.4 Troponin I <0.012 (0.000-0.034) ng/mL Total Protein 6.1 L (6.3-8.2) g/dL Albumin 3.4 L (3.5-5.0) g/dL Amylase 49 (30-110) U/L Lipase 41 (23-300) U/L Acetone, Qual Positive (Negative) 10/20/16 10/20/16 10/20/16 Range/Units 15:56 15:56 17:02 WBC 5.0 (3.8-10.6) k/uL RBC 3.87 L (4.30-5.90) m/uL Hgb 12.4 L (13.0-17.5) gm/dL Hct 40.2 (39.0-53.0) % MCV 103.8 H (80.0-100.0) fL MCH 32.1 (25.0-35.0) pg MCHC 30.9 L (31.0-37.0) g/dL RDW 14.3 (11.5-15.5) % Plt Count 231 (150-450) k/uL Neutrophils % 72 % Lymphocytes % 21 % Monocytes % 5 % Eosinophils % 1 % Basophils % 0 % Neutrophils # 3.6 (1.3-7.7) k/uL Lymphocytes # 1.1 (1.0-4.8) k/uL Monocytes # 0.3 (0-1.0) k/uL Eosinophils # 0.0 (0-0.7) k/uL Basophils # 0.0 (0-0.2) k/uL Hypochromasia Marked Macrocytosis Slight Sodium (137-145) mmol/L Potassium (3.5-5.1) mmol/L Chloride (98-107) mmol/L Carbon Dioxide (22-30) mmol/L Anion Gap mmol/L BUN (9-20) mg/dL Creatinine (0.66-1.25) mg/dL Est GFR (MDRD) Af Amer (>60 ml/min/1.73 sqM) Est GFR (MDRD) Non-Af (>60 ml/min/1.73 sqM) Glucose (74-99) mg/dL POC Glucose (mg/dL) >600 H (75-99) mg/dL POC Glu Hydro[employer] Teacher Daylin Juárez Plasma Lactic Acid Eliazar 2.7 H* (0.7-2.0) mmol/L Calcium (8.4-10.2) mg/dL Total Bilirubin (0.2-1.3) mg/dL AST (17-59) U/L ALT (21-72) U/L Alkaline Phosphatase (38-126) U/L Total Creatine Kinase (55-170) U/L CK-MB (CK-2) (0.0-2.4) ng/mL CK-MB (CK-2) Rel Index Troponin I (0.000-0.034) ng/mL Total Protein (6.3-8.2) g/dL Albumin (3.5-5.0) g/dL Amylase (30-110) U/L Lipase (23-300) U/L Acetone, Qual (Negative) - Radiology Data Radiology results: report reviewed (I did review the imaging and reports no acute findings.), image reviewed (I did review the imaging and report is evidence a right lower lobe pneumonia.) Critical Care Time Critical Care Time: Yes Critical Care Time: 31 minutes of critical care time which includes initial history physical lab and x-rays of the patient reevaluation patient to responsive therapy. Review of old charting. Discussion with the admitting physician admitting orders and documentation of the above. Disposition Clinical Impression: Pneumonia, Diabetic ketoacidosis, Febrile illness, acute, Chronic abdominal pain Disposition: ADMITTED IP TO THIS [facility] Condition: Serious Referrals: Sofia Emanuel MD [Primary Care Provider] - 1-2 days
[2016-10-20 16:33] LABS: Basophils % (A) 0 %; CH 30.7; CHCM 29.7; Eosinophils % (A) 1 %; HCT 40.2 % (39.0-53.0); HDW 2.71; HGB 12.4 gm/dL (13.0-17.5); Hypochromasia Marked; Luc # (Auto) 0.07; Luc % (Auto) 1; Lymphocytes # (A) 1.1 k/uL (1.0-4.8); Lymphocytes % (A) 21 %; MCH 32.1 pg (25.0-35.0); MCHC 30.9 g/dL (31.0-37.0); MCV 103.8 fL (80.0-100.0); Macrocytosis Slight; Mean Platelet Volume 7.9; Monocytes # (A) 0.3 k/uL (0-1.0); Monocytes % (A) 5 %; Neutrophils # (A) 3.6 k/uL (1.3-7.7); Neutrophils % (A) 72 %; RBC 3.87 m/uL (4.30-5.90); RDW 14.3 % (11.5-15.5); WBC (Perox) 5.15
[2016-10-20 16:49] LABS: ALT 49 U/L (21-72); AST 87 U/L (17-59); Alkaline Phosphatase 166 U/L (38-126); Amylase 49 U/L (30-110); Anion Gap 25 mmol/L; Blood Urea Nitrogen 25 mg/dL (9-20); Calcium 8.9 mg/dL (8.4-10.2); Chloride 100 mmol/L (98-107); Non-African American GFR(MDRD) 46 (>60 ml/min/1.73 sqM); Potassium 4.9 mmol/L (3.5-5.1); Sodium 135 mmol/L (137-145); Total Bilirubin 0.8 mg/dL (0.2-1.3); Total Protein 6.1 g/dL (6.3-8.2)
[2016-10-20 16:57] LABS: Carbon Dioxide 10 mmol/L (22-30); Glucose 757 mg/dL (74-99)
--- NOTE | 2016-10-20 16:59 | XR ---
EXAMINATION TYPE: XR chest 2V DATE OF EXAM: 10/20/2016 4:53 PM COMPARISON: 10/18/2016 HISTORY: Pain TECHNIQUE: Frontal and lateral views of the chest are obtained. FINDINGS: There is evidence for some mild patchy infiltrate in the right lower lobe. There is no hea rt failure. Costophrenic angles are clear. There are chest leads. IMPRESSION: Mild pneumonia in the right lower lobe. This appears new compared to last exam.
[2016-10-20 17:00] LABS: Creatine Kinase 81 U/L (55-170)
--- NOTE | 2016-10-20 17:01 | XR ---
EXAMINATION TYPE: XR KUB DATE OF EXAM: 10/20/2016 4:53 PM COMPARISON: 10/10/2016 HISTORY: Pain TECHNIQUE: 2 views FINDINGS: There is no sign of intestinal obstruction or pneumoperitoneum. Fecal pattern is normal. Th ere is no sign of a mass. IMPRESSION: Nonacute abdomen. No change.
[2016-10-20] MEDS: INSULIN REGULAR 100 UNIT in SODIUM CHLORIDE 0.9% 100 ML IV ONE ×2 (17:02→21:05)
[2016-10-20 17:03] LABS: Glucose,Whole Blood >600 mg/dL (75-99)
[2016-10-20 17:11] LABS: Creatine Kinase MB 1.1 ng/mL (0.0-2.4); Troponin I <0.012 ng/mL (0.000-0.034)
[2016-10-20] MEDS ORDERED: LEVOFLOXACIN 750MG-D5W PMX 750 MG in DEXTROSE/WATER 1 150ML.BAG IVPB STA (17:20)
[2016-10-20] MEDS ORDERED: PNEUMONIA PROTOCOL UTILIZED 1 EACH MISC PO PRN (17:20)
[2016-10-20] MEDS ORDERED: IBUPROFEN 800 MG TAB PO PRN (17:22)
[2016-10-20] MEDS ORDERED: POLYETHYLENE GLYCOL 3350 17 GM POWD.PACK PO PRN (17:22)
[2016-10-20] MEDS ORDERED: SODIUM CHLORIDE 0.9% 2,000 ML IV ONE (17:24)
[2016-10-20 18:41] LABS: Glucose,Whole Blood >600 mg/dL (75-99)
[2016-10-20] MEDS ORDERED: IPRATROPIUM-ALBUTEROL 3 ML NEB INHALATION PRN (18:43)
[2016-10-20 19:07] LABS: Glucose,Whole Blood >600 mg/dL (75-99)
[2016-10-20] MEDS ORDERED: IPRATROPIUM-ALBUTEROL 3 ML NEB INHALATION SCH ×2 (20:00)
[2016-10-20] MEDS: SODIUM CHLORIDE 0.9% 1,000 ML IV SCH (20:17)
[2016-10-20] MEDS: METOCLOPRAMIDE 5 MG TAB PO SCH (20:29)
[2016-10-20] MEDS: GABAPENTIN 100 MG CAP PO SCH (20:29)
[2016-10-20] MEDS: traZODone HCL 100 MG TAB PO SCH (20:29)
[2016-10-20] MEDS: SUCRALFATE 1 GM TAB PO SCH ×2 (20:29)
[2016-10-20] MEDS: METOPROLOL TARTRATE 25 MG TAB PO SCH (20:29)
[2016-10-20] MEDS: PIPERACILLIN-TAZOBACTAM 3.375 GM in DEXTROSE/WATER 1 50ML.BAG IVPB SCH (21:28)
[2016-10-20 21:29] LABS: Glucose,Whole Blood 237 mg/dL (75-99)
[2016-10-20 23:30] LABS: Glucose,Whole Blood 119 mg/dL (75-99)
[2016-10-20 23:46] LABS: Potassium 5.2 mmol/L (3.5-5.1)
[2016-10-21 00:56] LABS: Glucose,Whole Blood 85 mg/dL (75-99)
[2016-10-21] MEDS: HEPARIN SODIUM,PORCINE 5,000 UNIT/ML 1 ML VIAL SQ SCH ×3 (01:01→15:16)
[2016-10-21] MEDS: PIPERACILLIN-TAZOBACTAM 3.375 GM in DEXTROSE/WATER 1 50ML.BAG IVPB SCH ×3 (01:01→15:19)
[2016-10-21] MEDS: SODIUM CHLORIDE 0.9% 1,000 ML IV SCH ×3 (01:01→15:18)
[2016-10-21 01:51] LABS: Glucose,Whole Blood 121 mg/dL (75-99)
[2016-10-21 02:37] LABS: Glucose,Whole Blood 185 mg/dL (75-99)
[2016-10-21 04:33] LABS: Glucose,Whole Blood 133 mg/dL (75-99)
[2016-10-21] MEDS: SUCRALFATE 1 GM TAB PO SCH ×4 (06:29→21:21)
[2016-10-21] MEDS: PANTOPRAZOLE 40 MG TABLET PO SCH (06:29)
[2016-10-21 06:37] LABS: Glucose,Whole Blood 192 mg/dL (75-99)
[2016-10-21 07:54] LABS: ALT 44 U/L (21-72); AST 35 U/L (17-59); Alkaline Phosphatase 119 U/L (38-126); Blood Urea Nitrogen 24 mg/dL (9-20); Calcium 8.6 mg/dL (8.4-10.2); Chloride 111 mmol/L (98-107); Glucose 200 mg/dL (74-99); Non-African American GFR(MDRD) 60 (>60 ml/min/1.73 sqM); Potassium 4.8 mmol/L (3.5-5.1); Sodium 139 mmol/L (137-145); Total Bilirubin 0.9 mg/dL (0.2-1.3); Total Protein 5.5 g/dL (6.3-8.2)
[2016-10-21] MEDS: METOPROLOL TARTRATE 25 MG TAB PO SCH ×2 (08:40→21:21)
[2016-10-21] MEDS: GABAPENTIN 100 MG CAP PO SCH ×3 (08:40→21:21)
[2016-10-21] MEDS: MULTIVITAMINS, THERA 1 EACH TAB PO SCH (08:41)
[2016-10-21] MEDS: LISINOPRIL 10 MG TAB PO SCH (08:41)
[2016-10-21] MEDS: METOCLOPRAMIDE 5 MG TAB PO SCH ×3 (08:41→21:21)
[2016-10-21] MEDS: FOLIC ACID 1 MG TAB PO SCH (08:42)
[2016-10-21] MEDS: THIAMINE 100 MG TAB PO SCH (08:42)
[2016-10-21 09:00] LABS: Glucose,Whole Blood 187 mg/dL (75-99)
[2016-10-21 09:11] LABS: Anion Gap 11 mmol/L; Carbon Dioxide 17 mmol/L (22-30)
[2016-10-21 10:01] VITALS: RESP 18
[2016-10-21 11:24] LABS: Glucose,Whole Blood 178 mg/dL (75-99)
[2016-10-21 13:08] LABS: Glucose,Whole Blood 143 mg/dL (75-99)
[2016-10-21 13:36] VITALS: BMI 24.5
[2016-10-21 15:09] LABS: Glucose,Whole Blood 137 mg/dL (75-99)
[2016-10-21] MEDS: INSULIN DETEMIR 100 UNIT/ML 10 ML VIAL SQ SCH ×2 (15:15→21:22)
[2016-10-21 16:53] LABS: Glucose,Whole Blood 169 mg/dL (75-99)
[2016-10-21] MEDS: INSULIN LISPRO (humaLOG) 300 UNIT/3 ML VIAL SQ SCH ×2 (17:53→21:12)
[2016-10-21] MEDS ORDERED: LEVOFLOXACIN 750 MG TAB PO SCH (18:00)
[2016-10-21] MEDS: traZODone HCL 100 MG TAB PO SCH (21:21)
[2016-10-21 21:30] LABS: Glucose,Whole Blood 96 mg/dL (75-99)
--- NOTE | 2016-10-21 23:36 | HP ---
DATE OF ADMISSION: 10/20/2016 REASON FOR ADMISSION: Abdominal pain. HISTORY OF PRESENT ILLNESS: This is a 56 -year-old gentleman with history of insulin-dependent diabetes, chronic abdominal pain. He is admitted to the hospital multiple times with diabetic ketoacidosis, comes in the hospital with abdominal pain. Patient was noted to have significantly elevated blood glucose level, and an anion gap metabolic acidosis consistent with DKA. Patient is currently still on insulin drip. During my evaluation states that he is compliant to medications however, he was discharged home with a normal glucose level and bicarb of 20, bicarb within normal limits 2 days prior to the current admission. Denies using any illicit drugs however tox screen was not done initially in the emergency room. Patient states to have a cough currently nonproductive in nature. EKG in the emergency room did not reveal any abnormalities. Chest x-ray in the emergency room did reveal a suspicion infiltrate in the right middle lobe. Home medications include: 1. Lopressor. 2. Desyrel. 3. ( ). 4. Pepcid. 5. Motrin. 6. Norvasc. 7. Zestril. 8. Insulin Humalog. 9. Carafate. 10. Reglan. 11. Levemir 15 units bedtime. ALLERGIES: No known drug allergies. REVIEW OF SYSTEMS: Fourteen-point review of system was done , none pertinent other than what was mentioned above. Past medical history includes: Poorly controlled insulin-dependent diabetes mellitus. DKA. Peripheral neuropathy, peptic ulcer disease, CKD Stage II. History of congestive heart failure, psoriasis, multiple ear infections, polysubstance use. Surgical history includes colonoscopy, EGD, and toe amputation. FAMILY HISTORY: Diabetes mellitus, hypertension, on paternal side. SOCIAL HISTORY: Polysubstance use, ongoing tobacco use and alcohol use as well. PHYSICAL EXAMINATION: VITAL SIGNS: Temperature 99. T-max 101.4, respiratory rate 18, blood pressure 113/56, saturating 98% on room air. GENERALLY: Patient appears to be alert, oriented x3. HEENT: The pupils are equal and reactive to light and accommodation. HEART: S1, S2 present. No murmur appreciated. LUNGS: Good air entry. No wheezing or rhonchi noted. ABDOMINAL EXAM: Soft, nontender, no organomegaly appreciated. GENITOURINARY: No Bello in place. EXTREMITIES: Pulses can be palpated distally. Denies any tenderness on gross palpation. SKIN: On a gross skin exam does not appear to have any purpura or any skin rashes that were noted. NEUROLOGICALLY: Grossly cranial nerves 2-12 intact. No motor or sensory deficits noted. Laboratory data include hemoglobin 12.4, hematocrit 40.8, white count 5, platelets of 231. Sodium 135, potassium 4.8, chloride 111, bicarb 17, BUN 24, creatinine 1.25, initial bicarb 10. ASSESSMENT AND PLAN: 1. Sepsis secondary to right middle lobe pneumonia. 2. Diabetic ketoacidosis, likely secondary to number one and noncompliant. 3. History of hypertension. 4. Chronic abdominal pain. 5. Diabetic gastroparesis. 6. Polysubstance use. 7. Gastroesophageal reflux disease. 8. Peripheral neuropathy. PLAN: We will continue the patient on Levaquin and discontinue Zosyn at this time. Will repeat labs in a.m. Again discussed the importance of compliance. However, the patient gets admitted to the hospital multiple times. Will follow.
[2016-10-22 01:52] LABS: Glucose,Whole Blood 65 mg/dL (75-99)
[2016-10-22] MEDS: INSULIN LISPRO (humaLOG) 300 UNIT/3 ML VIAL SQ SCH ×3 (01:54→12:33)
[2016-10-22 02:30] LABS: Glucose,Whole Blood 77 mg/dL (75-99)
[2016-10-22] MEDS: SODIUM CHLORIDE 0.9% 1,000 ML IV SCH ×3 (03:00→11:15)
[2016-10-22 03:51] LABS: Glucose,Whole Blood 105 mg/dL (75-99)
[2016-10-22 05:59] LABS: Glucose,Whole Blood 111 mg/dL (75-99)
[2016-10-22 06:29] LABS: Basophils % (A) 1 %; CHCM 34.1; Eosinophils # (A) 0.2 k/uL (0-0.7); Eosinophils % (A) 4 %; HDW 2.82; HGB 12.1 gm/dL (13.0-17.5); Luc # (Auto) 0.11; Luc % (Auto) 2; Lymphocytes # (A) 1.9 k/uL (1.0-4.8); Lymphocytes % (A) 38 %; MCH 31.8 pg (25.0-35.0); MCHC 33.6 g/dL (31.0-37.0); Monocytes # (A) 0.3 k/uL (0-1.0); Monocytes % (A) 6 %; Neutrophils # (A) 2.5 k/uL (1.3-7.7); Neutrophils % (A) 49 %; RBC 3.81 m/uL (4.30-5.90); RDW 14.6 % (11.5-15.5); WBC (Perox) 4.93
[2016-10-22 06:36] LABS: MCV 94.5 fL (80.0-100.0)
[2016-10-22 07:12] LABS: ALT 39 U/L (21-72); AST 35 U/L (17-59); Alkaline Phosphatase 97 U/L (38-126); Anion Gap 7 mmol/L; Blood Urea Nitrogen 17 mg/dL (9-20); Calcium 8.5 mg/dL (8.4-10.2); Carbon Dioxide 21 mmol/L (22-30); Chloride 111 mmol/L (98-107); Glucose 111 mg/dL (74-99); Magnesium 1.7 mg/dL (1.6-2.3); Non-African American GFR(MDRD) >60 (>60 ml/min/1.73 sqM); Potassium 4.4 mmol/L (3.5-5.1); Sodium 139 mmol/L (137-145); Total Bilirubin 0.4 mg/dL (0.2-1.3); Total Protein 5.3 g/dL (6.3-8.2)
[2016-10-22 07:22] LABS: Glucose,Whole Blood 87 mg/dL (75-99)
[2016-10-22 07:58] VITALS: BP 168/81; TEMP 98.1
[2016-10-22] MEDS: GABAPENTIN 100 MG CAP PO SCH (08:32)
[2016-10-22] MEDS: HEPARIN SODIUM,PORCINE 5,000 UNIT/ML 1 ML VIAL SQ SCH ×2 (08:32)
[2016-10-22] MEDS: THIAMINE 100 MG TAB PO SCH (08:32)
[2016-10-22] MEDS: METOPROLOL TARTRATE 25 MG TAB PO SCH (08:32)
[2016-10-22] MEDS: PANTOPRAZOLE 40 MG TABLET PO SCH (08:32)
[2016-10-22] MEDS: LISINOPRIL 10 MG TAB PO SCH (08:32)
[2016-10-22] MEDS: METOCLOPRAMIDE 5 MG TAB PO SCH (08:32)
[2016-10-22] MEDS: SUCRALFATE 1 GM TAB PO SCH ×2 (08:32→12:33)
[2016-10-22] MEDS ORDERED: HYDROcodone/APAP 10-325MG 1 EACH TAB PO ONE (11:10)
[2016-10-22] MEDS ORDERED: MAG HYDROX/AL HYDROX/SIMETH 30 ML, HYOSCYAMINE ELIXIR 10 ML, CIMETIDINE HCL 300 MG PO STA ×6 (11:21→12:30)
[2016-10-22 11:27] LABS: Glucose,Whole Blood 309 mg/dL (75-99)
[2016-10-22] MEDS: FOLIC ACID 1 MG TAB PO SCH (12:33)
[2016-10-22] MEDS: MULTIVITAMINS, THERA 1 EACH TAB PO SCH (12:33)
[2016-10-22 14:10] VITALS: PULSE 60
--- NOTE | 2016-10-22 18:58 | P.DS ---
Providers Date of admission: 10/20/16 17:20 Attending physician: Saniya Lomas Primary care physician: [facility] Course: HISTORY OF PRESENT ILLNESS: This is a 56 -year-old gentleman with history of insulin-dependent diabetes, chronic abdominal pain. He is admitted to the hospital multiple times with diabetic ketoacidosis, comes in the hospital with abdominal pain. Patient was noted to have significantly elevated blood glucose level, and an anion gap metabolic acidosis consistent with DKA. Patient is currently still on insulin drip. During my evaluation states that he is compliant to medications however, he was discharged home with a normal glucose level and bicarb of 20, bicarb within normal limits 2 days prior to the current admission. Denies using any illicit drugs however tox screen was not done initially in the emergency room. Patient states to have a cough currently nonproductive in nature. EKG in the emergency room did not reveal any abnormalities. Chest x-ray in the emergency room did reveal a suspicion infiltrate in the right middle lobe. 10/22/16 complaints darline abdominal pain epigastric requests narcotics however denies cough, GAEL states he is compliant with his insulin PHYSICAL EXAMINATION: GENERALLY: Patient appears to be alert, oriented x3. HEENT: The pupils are equal and reactive to light and accommodation. HEART: S1, S2 present. No murmur appreciated. LUNGS: Good air entry. No wheezing or rhonchi noted. ABDOMINAL EXAM: Soft, nontender, no organomegaly appreciated. GENITOURINARY: No Bello in place. EXTREMITIES: Pulses can be palpated distally. Denies any tenderness on gross palpation. SKIN: On a gross skin exam does not appear to have any purpura or any skin rashes that were noted. NEUROLOGICALLY: Grossly cranial nerves 2-12 intact. No motor or sensory deficits noted. ASSESSMENT AND PLAN: 1. Sepsis secondary to right middle lobe pneumonia. 2. Diabetic ketoacidosis, likely secondary to number one and noncompliant. 3. History of hypertension. 4. Chronic abdominal pain. 5. Diabetic gastroparesis. 6. Polysubstance use. 7. Gastroesophageal reflux disease. 8. Peripheral neuropathy. Home on levaquin for 5 days recommended compliance cessation from drug use epigastric pain is not consistent pt tolerated diet, sleeping during every eval, however states to have uncontrolled pain and apparently completes every meal provided Patient Condition at Discharge: Serious Plan - Discharge Summary New Discharge Prescriptions: New RX: Levofloxacin [Levaquin] 750 mg PO 1800 #5 tab Continue RX: Folic Acid 1 mg PO DAILY #30 tablet RX: Multivitamins, Thera [Multivitamin (formulary)] 1 tab PO DAILY #30 tablet RX: Thiamine [Vitamin B-1] 100 mg PO DAILY #30 tablet RX: Polyethylene Glycol 3350 [Miralax] 17 gm PO DAILY PRN #30 packet PRN Reason: Constipation RX: Omeprazole [PriLOSEC] 40 mg PO AC-BRKFST #30 capsule. RX: traZODone HCL [Desyrel] 200 mg PO HS RX: Metoprolol Tartrate [Lopressor] 25 mg PO BID RX: Clotrimazole Cream [Lotrimin Cream] 1 applic TOPICAL BID PRN PRN Reason: ANTI-FUNGAL RX: Gabapentin [Neurontin] 100 mg PO TID #60 cap RX: INSULIN LISPRO (humaLOG) [humaLOG (formulary)] 8 unit SQ AC-TID #1 vial RX: Calcium Carbonate [Tums] 500 mg PO TID #1 chew RX: Ibuprofen [Motrin] 800 mg PO Q8HR PRN PRN Reason: Pain RX: Famotidine [Pepcid] 40 mg PO HS RX: amLODIPine [Norvasc] 5 mg PO DAILY RX: Metoclopramide HCl [Reglan] 5 mg PO TID #30 tablet RX: Sucralfate [Carafate] 1 gm PO ACHS #120 tablet RX: Insulin Detemir [Levemir] 15 unit SQ HS vial RX: Lisinopril [Zestril] 10 mg PO DAILY Discharge Medication List RX: Folic Acid 1 mg PO DAILY #30 tablet 07/16/16 [Rx] RX: Multivitamins, Thera [Multivitamin (formulary)] 1 tab PO DAILY #30 tablet [Rx] RX: Thiamine [Vitamin B-1] 100 mg PO DAILY #30 tablet 07/16/16 [Rx] RX: Omeprazole [PriLOSEC] 40 mg PO AC-BRKFST #30 capsule. 07/25/16 [Rx] RX: Polyethylene Glycol 3350 [Miralax] 17 gm PO DAILY PRN #30 packet 07/25/16 [ Rx] RX: Metoprolol Tartrate [Lopressor] 25 mg PO BID 08/05/16 [History] RX: traZODone HCL [Desyrel] 200 mg PO HS 08/05/16 [History] RX: Clotrimazole Cream [Lotrimin Cream] 1 applic TOPICAL BID PRN 08/30/16 [ History] RX: Calcium Carbonate [Tums] 500 mg PO TID #1 chew 09/02/16 [Rx] RX: Gabapentin [Neurontin] 100 mg PO TID #60 cap 09/02/16 [Rx] RX: INSULIN LISPRO (humaLOG) [humaLOG (formulary)] 8 unit SQ AC-TID #1 vial [Rx] RX: Famotidine [Pepcid] 40 mg PO HS 10/06/16 [History] RX: Ibuprofen [Motrin] 800 mg PO Q8HR PRN 10/06/16 [History] RX: amLODIPine [Norvasc] 5 mg PO DAILY 10/06/16 [History] RX: Metoclopramide HCl [Reglan] 5 mg PO TID #30 tablet 10/07/16 [Rx] RX: Sucralfate [Carafate] 1 gm PO ACHS #120 tablet 10/12/16 [Rx] RX: Insulin Detemir [Levemir] 15 unit SQ HS vial 10/19/16 [Rx] RX: Lisinopril [Zestril] 10 mg PO DAILY 10/20/16 [History] RX: Levofloxacin [Levaquin] 750 mg PO 1800 #5 tab 10/22/16 [Rx] Follow up Appointment(s)/Referral(s): [facility], [NON-STAFF] - Sofia Emanuel MD [Primary Care Provider] - 10/28/16 1:30 pm Patient Instructions/Handouts: Levofloxacin (By mouth), Pneumonia (DC) Discharge Disposition: HOME SELF-CARE
--- NOTE | 2016-10-24 12:15 | CDI ---
In responding to this query, please exercise your independent professional judgment. The [facility] Coding Staff and Clinical Documentation Specialists appreciate your assistance in clarifying documentation, maintaining compliance with coding guidelines, accurately documenting patients condition and capturing severity of illness. The fact that a question is asked does not imply that any particular answer is desired or expected. Communication forms are a method of clarifying documentation and are not made part of the Legal Health Record. Thank you in advance for your clarification. Last Revision, March 2015 Date: 10/24/2016 11:45:00 AM From: Elsy Michele, Doll Surgeon Admit Date: 10/20/2016 5:20:00 PM Patient Name: Rigo Krueger Visit Number: [id number] Discharge Date: Dr. Ari Daniels The patient presented in DKA and pneumonia. On admission, temp 101.4, BP 113/56 , WBC 5. Chest x-ray revealed mild pneumonia. He was started on Levaquin in the ED. Patient discharged after 2 day stay. In your professional opinion, can you please clarify ____? Sepsis with pneumonia Pneumonia only Other, please specify Unable to determine Please document in your progress notes and discharge summary in order to capture severity of illness and risk of mortality. Include clinical findings that support your diagnosis. FYI: Press F11 to launch patient chart. Place X here if this finding has no clinical significance, is not applicable or if you are not able to provide any additional documentation. SENG
== END 2016-10-22 15:35 | disposition home or self-care (01) | DRG 871 ==
LOC: EC 15:40 → 6SEL 17:20 → 5MS5E 10-22 06:55
PROVIDERS: ADMIT Internal Medicine; ATTEND Internal Medicine
DX: A41.9 Sepsis, unspecified organism (principal); E13.10 Other specified diabetes mellitus with ketoacidosis without coma; J69.0 Pneumonitis due to inhalation of food and vomit; E11.22 Type 2 diabetes mellitus with diabetic chronic kidney disease; I13.0 Hypertensive heart and chronic kidney disease with heart failure and stage 1 through stage 4 chronic kidney disease, or unspecified chronic kidney disease; I50.9 Heart failure, unspecified; G62.9 Polyneuropathy, unspecified; E11.43 Type 2 diabetes mellitus with diabetic autonomic (poly)neuropathy; G89.29 Other chronic pain; K21.9 Gastro-esophageal reflux disease without esophagitis; K31.84 Gastroparesis; M06.9 Rheumatoid arthritis, unspecified; N18.3 Chronic kidney disease, stage 3 (moderate); Z72.0 Tobacco use; Z79.4 Long term (current) use of insulin; Z79.899 Other long term (current) drug therapy; Z82.49 Family history of ischemic heart disease and other diseases of the circulatory system; Z83.3 Family history of diabetes mellitus; Z87.11 Personal history of peptic ulcer disease; Z91.19 Patient's noncompliance with other medical treatment and regimen
CPT/HCPCS: 36415; 71020; 74000; 80051; 80053; 82009; 82150; 82550; 82553; 82947; 83605; 83690; 83735; 84484; 85025; 87040; 93005; 96361; 96365; 96375; 99291

== ENCOUNTER 2016-10-28 08:26 | Observation (INO) | payer OTHER ==
[2016-10-28 08:35] LABS: Glucose,Whole Blood >600 mg/dL (75-99)
[2016-10-28] MEDS ORDERED: METOCLOPRAMIDE 5 MG/ML 2 ML VIAL IVP STA (08:44)
[2016-10-28] MEDS ORDERED: SODIUM CHLORIDE 0.9% 1,000 ML IV STA (08:44)
[2016-10-28] MEDS ORDERED: PANTOPRAZOLE 40 MG/10 ML VIAL IVP STA (08:44)
[2016-10-28] MEDS ORDERED: Magnesium Replacement Protocol 1 EACH MISC MISCELLANE PRN (08:50)
[2016-10-28] MEDS ORDERED: SODIUM CHLORIDE 0.9% 1,000 ML IV ONE (08:50)
[2016-10-28] MEDS ORDERED: Potassium Replacement Protocol 1 EACH MISC MISCELLANE PRN (08:50)
[2016-10-28] MEDS ORDERED: INSULIN REGULAR BOLUS (FROM DRIP BAG) IV ONE (08:50)
--- NOTE | 2016-10-28 08:54 | ED ---
General Adult HPI - General Chief complaint: Abdominal Pain Stated complaint: Hyperglycemia Time Seen by Provider: 10/28/16 08:37 Source: patient, EMS, RN notes reviewed Mode of arrival: EMS Limitations: no limitations - History of Present Illness Initial comments: Patient is a pleasant 56-year-old male presenting to the emergency department with concerns for high blood sugar. EMS reports blood sugar in the 500s. Patient states his abdominal discomfort which is generally chronic for him when his blood sugar runs high. Patient has had a recent pneumonia and feels only somewhat better. Patient has nausea. - Related Data Home Medications Medication Instructions Recorded Confirmed Metoprolol Tartrate [Lopressor] 25 mg PO BID 08/05/16 10/28/16 traZODone HCL [Desyrel] 200 mg PO HS 08/05/16 10/28/16 Clotrimazole Cream [Lotrimin Cream] 1 applic TOPICAL BID PRN 08/30/16 10/28/16 Famotidine [Pepcid] 40 mg PO HS 10/06/16 10/28/16 Ibuprofen [Motrin] 800 mg PO Q8HR PRN 10/06/16 10/28/16 amLODIPine [Norvasc] 5 mg PO DAILY 10/06/16 10/28/16 Lisinopril [Zestril] 10 mg PO DAILY 10/20/16 10/28/16 INSULIN LISPRO (humaLOG) [humaLOG See Protocol SQ AC-TID 10/28/16 10/28/16 (formulary)] Previous Rx's Medication Instructions Recorded Folic Acid 1 mg PO DAILY #30 tablet 07/16/16 Multivitamins, Thera [Multivitamin 1 tab PO DAILY #30 tablet 07/16/16 (formulary)] Thiamine [Vitamin B-1] 100 mg PO DAILY #30 tablet 07/16/16 Omeprazole [PriLOSEC] 40 mg PO AC-BRKFST #30 capsule. 07/25/16 Polyethylene Glycol 3350 [Miralax] 17 gm PO DAILY PRN #30 packet 07/25/16 Calcium Carbonate [Tums] 500 mg PO TID #1 chew 09/02/16 Gabapentin [Neurontin] 100 mg PO TID #60 cap 09/02/16 Metoclopramide HCl [Reglan] 5 mg PO TID #30 tablet 10/07/16 Sucralfate [Carafate] 1 gm PO ACHS #120 tablet 10/12/16 Insulin Detemir [Levemir] 15 unit SQ HS vial 10/19/16 Levofloxacin [Levaquin] 750 mg PO 1800 #5 tab 10/22/16 Allergies Allergy/AdvReac Type Severity Reaction Status Date / Time No Known Allergies Allergy Verified 10/28/16 10:19 Review of Systems ROS Statement: Those systems with pertinent positive or pertinent negative responses have been documented in the HPI. ROS Other: All systems not noted in ROS Statement are negative. Constitutional: Denies: fever Eyes: Denies: eye pain ENT: Denies: ear pain Respiratory: Reports: cough Cardiovascular: Denies: chest pain Endocrine: Reports: fatigue Gastrointestinal: Reports: abdominal pain, nausea Genitourinary: Denies: urgency Musculoskeletal: Denies: back pain Skin: Denies: rash Neurological: Denies: weakness Past Medical History Past Medical History: Heart Failure, Diabetes Mellitus, Hypertension, Pneumonia , Renal Disease, Rheumatoid Arthritis (RA), Skin Disorder Additional Past Medical History / Comment(s): IDDM poorly controlled, DKAs, diabetic gastroparesis, bilateral feet/hands peripheral neuropathy, blood behind both eyes, peptic ulcer disease/duodenal ulcer/gastritis with erosions, previous hospitalization for pulmonary edema and bilateral pleural effusion and subsequent evaluation showed a preserved LV function with an ejection fraction of around 50%, CKD stage III, normocytic chronic anemia, rheumatoid arthritis, DJD, chronic back pain, osteoarthritis-generalized, eczema, psoriasis, ear infections, hx of narcotic abuse, cocaine abuse and alcohol abuse. History of Any Multi-Drug Resistant Organisms: MRSA Date of last positivie culture/infection: 02/25/08 MDRO Source:: Neck Past Surgical History: Adenoidectomy, Tonsillectomy Additional Past Surgical History / Comment(s): colonoscopy 2009, EGD, lt great toe amp, and part of 2nd toe. Past Anesthesia/Blood Transfusion Reactions: No Reported Reaction Past Psychological History: No Psychological Hx Reported Additional Psychological History / Comment(s): PT STATED HE LIVES WITH ROOM MATES ,NO PETS. NO OUTSIDE SERVICES CURRENTLY. 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 06/18/16 toxicology + for cocaine. 06/29/16 toxicology + or cocaine. 07/06/16 toxicology + for cocaine. toxicology + cocaine 08/17/16, 10/18/16 toxicology + cocaine - Past Family History Father Family Medical History: Diabetes Mellitus, Hypertension Additional Family Medical History / Comment(s): father Mother Additional Family Medical History / Comment(s): pyschiatric issues. General Exam Limitations: no limitations General appearance: alert, in no apparent distress Head exam: Present: atraumatic Eye exam: Present: normal appearance, PERRL ENT exam: Present: normal oropharynx Neck exam: Present: normal inspection Respiratory exam: Present: normal lung sounds bilaterally Cardiovascular Exam: Present: regular rate, normal rhythm GI/Abdominal exam: Present: soft, tenderness (Mild diffuse tenderness). Absent : distended Extremities exam: Present: normal inspection Neurological exam: Present: alert Psychiatric exam: Present: normal affect, normal mood Skin exam: Present: normal color Course Vital Signs 10/28/16 10/28/16 08:35 09:22 Temperature 99.8 F H Pulse Rate 81 83 Respiratory 18 18 Rate Blood Pressure 184/97 183/94 O2 Sat by Pulse 97 100 Oximetry EKG Findings - EKG Comments: EKG Findings:: Normal sinus rhythm at 82. MS 158. QRS 80. QT 384. QTC 448. Normal axis. Normal QRS. Nonspecific ST-T. Medical Decision Making - Medical Decision Making Patient reevaluated and resting comfortably in bed. Patient only complaining of burning in the abdomen. Patient updated on results and plan. - Lab Data Result diagrams: 10/28/16 09:07 10/28/16 09:07 Lab Results 10/28/16 10/28/16 10/28/16 Range/Units 08:33 09:07 09:07 WBC 2.4 L (3.8-10.6) k/uL RBC 4.06 L (4.30-5.90) m/uL Hgb 12.7 L (13.0-17.5) gm/dL Hct 41.4 (39.0-53.0) % MCV 102.1 H D (80.0-100.0) fL MCH 31.2 (25.0-35.0) pg MCHC 30.6 L (31.0-37.0) g/dL RDW 14.7 (11.5-15.5) % Plt Count 288 (150-450) k/uL Neutrophils % 37 % Lymphocytes % 47 % Monocytes % 8 % Eosinophils % 4 % Basophils % 1 % Neutrophils # 0.9 L (1.3-7.7) k/uL Lymphocytes # 1.1 (1.0-4.8) k/uL Monocytes # 0.2 (0-1.0) k/uL Eosinophils # 0.1 (0-0.7) k/uL Basophils # 0.0 (0-0.2) k/uL Manual Slide Review Performed Hypochromasia Slight Macrocytosis Slight Sodium 132 L (137-145) mmol/L Potassium 4.6 (3.5-5.1) mmol/L Chloride 95 L (98-107) mmol/L Carbon Dioxide 23 (22-30) mmol/L Anion Gap 14 mmol/L BUN 15 (9-20) mg/dL Creatinine 1.03 (0.66-1.25) mg/dL Est GFR (MDRD) Af Amer >60 (>60 ml/min/1.73 sqM) Est GFR (MDRD) Non-Af >60 (>60 ml/min/1.73 sqM) Glucose 741 H* (74-99) mg/dL POC Glucose (mg/dL) >600 H (75-99) mg/dL POC Glu Correspondence Specialist ID Bren Hope Calcium 9.1 (8.4-10.2) mg/dL Total Bilirubin 0.6 (0.2-1.3) mg/dL AST 54 (17-59) U/L ALT 42 (21-72) U/L Alkaline Phosphatase 169 H (38-126) U/L Total Protein 7.3 (6.3-8.2) g/dL Albumin 4.2 (3.5-5.0) g/dL Amylase 41 (30-110) U/L Lipase 98 (23-300) U/L Urine Color Urine Appearance (Clear) Urine pH (5.0-8.0) Ur Specific [place] (1.001-1.035) Urine Protein (Negative) Urine Glucose (UA) (Negative) Urine Ketones (Negative) Urine Blood (Negative) Urine Nitrite (Negative) Urine Bilirubin (Negative) Urine Urobilinogen (<2.0) mg/dL Ur Leukocyte Esterase (Negative) Acetone, Qual Negative (Negative) 10/28/16 10/28/16 Range/Units 10:35 10:35 WBC (3.8-10.6) k/uL RBC (4.30-5.90) m/uL Hgb (13.0-17.5) gm/dL Hct (39.0-53.0) % MCV (80.0-100.0) fL MCH (25.0-35.0) pg MCHC (31.0-37.0) g/dL RDW (11.5-15.5) % Plt Count (150-450) k/uL Neutrophils % % Lymphocytes % % Monocytes % % Eosinophils % % Basophils % % Neutrophils # (1.3-7.7) k/uL Lymphocytes # (1.0-4.8) k/uL Monocytes # (0-1.0) k/uL Eosinophils # (0-0.7) k/uL Basophils # (0-0.2) k/uL Manual Slide Review Hypochromasia Macrocytosis Sodium (137-145) mmol/L Potassium (3.5-5.1) mmol/L Chloride (98-107) mmol/L Carbon Dioxide (22-30) mmol/L Anion Gap mmol/L BUN (9-20) mg/dL Creatinine (0.66-1.25) mg/dL Est GFR (MDRD) Af Amer (>60 ml/min/1.73 sqM) Est GFR (MDRD) Non-Af (>60 ml/min/1.73 sqM) Glucose (74-99) mg/dL POC Glucose (mg/dL) 570 H (75-99) mg/dL POC Glu Correspondence Specialist ID Lupe Day Calcium (8.4-10.2) mg/dL Total Bilirubin (0.2-1.3) mg/dL AST (17-59) U/L ALT (21-72) U/L Alkaline Phosphatase (38-126) U/L Total Protein (6.3-8.2) g/dL Albumin (3.5-5.0) g/dL Amylase (30-110) U/L Lipase (23-300) U/L Urine Color Colorless Urine Appearance Clear (Clear) Urine pH 6.0 (5.0-8.0) Ur Specific [place] 1.015 (1.001-1.035) Urine Protein Negative (Negative) Urine Glucose (UA) 4+ H (Negative) Urine Ketones Negative (Negative) Urine Blood Negative (Negative) Urine Nitrite Negative (Negative) Urine Bilirubin Negative (Negative) Urine Urobilinogen <2.0 (<2.0) mg/dL Ur Leukocyte Esterase Negative (Negative) Acetone, Qual (Negative) - Radiology Data Radiology results: image reviewed (Chest x-ray shows improvement from prior right lower lobe infiltrate. KUB showed nonspecific findings.) Disposition Clinical Impression: Hyperkalemia Disposition: ADMITTED IP TO THIS HOSP Referrals: Sofia Emanuel MD [Primary Care Provider] - 1-2 days Decision Time: 10:56
[2016-10-28] MEDS ORDERED: SODIUM CHLORIDE 0.9% 1,000 ML IV SCH ×2 (09:00→11:00)
[2016-10-28] MEDS ORDERED: INSULIN REGULAR 100 UNIT in SODIUM CHLORIDE 0.9% 100 ML IV SCH ×2 (09:00→12:30)
[2016-10-28] MEDS ORDERED: D5-0.45% NACL WITH KCL 20MEQ/L 1,000 ML IV SCH (09:00)
[2016-10-28 09:30] LABS: Basophils % (A) 1 %; CH 31.6; CHCM 31.1; Eosinophils # (A) 0.1 k/uL (0-0.7); Eosinophils % (A) 4 %; HCT 41.4 % (39.0-53.0); HDW 2.48; HGB 12.7 gm/dL (13.0-17.5); Hypochromasia Slight; Luc # (Auto) 0.08; Luc % (Auto) 4; Lymphocytes # (A) 1.1 k/uL (1.0-4.8); Lymphocytes % (A) 47 %; MCH 31.2 pg (25.0-35.0); MCHC 30.6 g/dL (31.0-37.0); Macrocytosis Slight; Mean Platelet Volume 7.5; Monocytes # (A) 0.2 k/uL (0-1.0); Monocytes % (A) 8 %; Neutrophils # (A) 0.9 k/uL (1.3-7.7); Neutrophils % (A) 37 %; RBC 4.06 m/uL (4.30-5.90); RDW 14.7 % (11.5-15.5); WBC 2.4 k/uL (3.8-10.6); WBC (Perox) 2.58
[2016-10-28 09:38] LABS: ALT 42 U/L (21-72); AST 54 U/L (17-59); Alkaline Phosphatase 169 U/L (38-126); Amylase 41 U/L (30-110); Anion Gap 14 mmol/L; Blood Urea Nitrogen 15 mg/dL (9-20); Calcium 9.1 mg/dL (8.4-10.2); Carbon Dioxide 23 mmol/L (22-30); Chloride 95 mmol/L (98-107); Non-African American GFR(MDRD) >60 (>60 ml/min/1.73 sqM); Potassium 4.6 mmol/L (3.5-5.1); Sodium 132 mmol/L (137-145); Total Bilirubin 0.6 mg/dL (0.2-1.3); Total Protein 7.3 g/dL (6.3-8.2)
[2016-10-28 09:44] LABS: MCV 102.1 fL (80.0-100.0)
--- NOTE | 2016-10-28 09:51 | XR ---
EXAMINATION TYPE: XR KUB DATE OF EXAM: 10/28/2016 COMPARISON: 10/20/2016 INDICATION: Abdomen pain TECHNIQUE: Single view abdomen frontal projection upright view FINDINGS: There is a normal bowel gas pattern. There is within the colon and the stomach. No suspicious air-flu id levels are evident. Bowel gas pattern appears normal on the current exam. Psoas margins are normal. No organomegaly is present. Note is made of a nonunion old rib fracture of the left T10 posterior lateral rib. IMPRESSION: 1. Unremarkable Abdomen
[2016-10-28 10:04] LABS: Glucose 741 mg/dL (74-99)
[2016-10-28 10:13] LABS: Manual Review Performed
[2016-10-28 10:36] LABS: Glucose,Whole Blood 570 mg/dL (75-99)
--- NOTE | 2016-10-28 10:36 | XR ---
EXAMINATION TYPE: XR chest 2V DATE OF EXAM: 10/28/2016 COMPARISON: 10/20/2016 INDICATION: Previous abnormal chest x-ray, cough TECHNIQUE: Frontal and lateral views of the chest are obtained. FINDINGS: The heart size is normal. The pulmonary vasculature is normal. Infiltrate within the right lower lobe has improved. EKG leads overlie the chest.. IMPRESSION: 1. There may be some residual right lower lobe infiltrate. This has improved from comparison.
[2016-10-28 10:48] LABS: Appearance,Urine Clear (Clear); Bilirubin,Urine Negative (Negative); Glucose,Urine (UA) 4+ (Negative); Ketones,Urine Negative (Negative); Leukocyte Esterase,Urine Negative (Negative); Nitrite,Urine Negative (Negative); Protein,Urine Negative (Negative); Specific Gravity,Urine 1.015 (1.001-1.035); UA Billing (MACRO vs. MICRO) CHEM; Urobilinogen,Urine <2.0 mg/dL (<2.0)
[2016-10-28 11:50] LABS: Glucose,Whole Blood 412 mg/dL (75-99)
[2016-10-28 12:05] LABS: Glucose,Whole Blood 347 mg/dL (75-99)
[2016-10-28] MEDS: SODIUM CHLORIDE 0.9% 1,000 ML IV SCH (12:27)
[2016-10-28 14:07] LABS: Glucose,Whole Blood 98 mg/dL (75-99)
[2016-10-28 14:15] LABS: Anion Gap 13 mmol/L; Blood Urea Nitrogen 14 mg/dL (9-20); Carbon Dioxide 20 mmol/L (22-30); Chloride 107 mmol/L (98-107); Glucose 111 mg/dL (74-99); Non-African American GFR(MDRD) >60 (>60 ml/min/1.73 sqM); Phosphorous 4.7 mg/dL (2.5-4.5); Potassium 4.6 mmol/L (3.5-5.1); Sodium 140 mmol/L (137-145)
[2016-10-28] MEDS: METOCLOPRAMIDE 5 MG/ML 2 ML VIAL IVP PRN (14:25)
[2016-10-28] MEDS: HYDROcodone/APAP 5-325MG 1 EACH TAB PO PRN ×2 (14:25→21:34)
[2016-10-28] MEDS: THIAMINE 100 MG TAB PO SCH (14:50)
[2016-10-28] MEDS: LISINOPRIL 10 MG TAB PO SCH (14:50)
[2016-10-28] MEDS: SUCRALFATE 1 GM TAB PO SCH ×3 (14:50→21:29)
[2016-10-28] MEDS: MULTIVITAMINS, THERA 1 EACH TAB PO SCH (14:50)
[2016-10-28] MEDS: amLODIPine 5 MG TAB PO SCH (14:50)
[2016-10-28] MEDS: METOPROLOL TARTRATE 25 MG TAB PO SCH ×2 (14:50→21:29)
[2016-10-28] MEDS: INSULIN LISPRO (humaLOG) 300 UNIT/3 ML VIAL SQ SCH ×2 (14:51→18:02)
[2016-10-28 15:17] LABS: Glucose,Whole Blood 63 mg/dL (75-99)
[2016-10-28 15:29] LABS: Glucose,Whole Blood 62 mg/dL (75-99)
[2016-10-28 16:00] LABS: Glucose,Whole Blood 101 mg/dL (75-99)
[2016-10-28 16:58] LABS: Glucose,Whole Blood 149 mg/dL (75-99)
[2016-10-28] MEDS: CALCIUM CARBONATE 500 MG CHEWABLE PO SCH ×2 (18:01→21:30)
[2016-10-28] MEDS: GABAPENTIN 100 MG CAP PO SCH ×2 (18:01→21:30)
[2016-10-28 18:13] LABS: Anion Gap 8 mmol/L; Blood Urea Nitrogen 14 mg/dL (9-20); Carbon Dioxide 23 mmol/L (22-30); Chloride 106 mmol/L (98-107); Glucose 221 mg/dL (74-99); Non-African American GFR(MDRD) >60 (>60 ml/min/1.73 sqM); Phosphorous 4.5 mg/dL (2.5-4.5); Potassium 5.2 mmol/L (3.5-5.1); Sodium 137 mmol/L (137-145)
[2016-10-28 18:42] LABS: Glucose,Whole Blood 329 mg/dL (75-99)
--- NOTE | 2016-10-28 19:49 | HP ---
DATE OF ADMISSION: 10/28/2016 REASON FOR ADMISSION: Abdominal pain. HISTORY OF PRESENT ILLNESS: Mr. Krueger is a 56-year-old male with past medical history of insulin-dependent diabetes mellitus, chronic abdominal pain, admitted to the hospital multiple at times with hyperglycemia and DKA. Patient was noted to have significantly elevated blood glucose levels without anion gap. The patient was eventually started on an insulin drip. Patient also has chronic abdominal pain. He had one episode of vomiting; no hematemesis noted. Denies having any constipation or diarrhea. Patient denies having any fevers, chills or rigors. Patient had a recent hospital stay and was discharged last week for right middle lobe pneumonia. He states that he completed his course of Levaquin. Patient states that he is noncompliant with his insulin and that his blood sugars are very brittle. REVIEW OF SYSTEMS: All 13 systems were reviewed and negative except for the ones mentioned in the HPI. Past medical history is significant for: 1. Poorly controlled insulin-dependent diabetes mellitus. 2. Multiple hospital admissions for DKA. 3. Peripheral neuropathy. 4. Peptic ulcer disease. 5. CKD stage II. 6. History of congestive heart failure. 7. Psoriasis. 8. Polysubstance abuse. PAST SURGICAL HISTORY: 1. Colonoscopy. 2. EGD. 3. Toe amputation. ALLERGIES: NO KNOWN DRUG ALLERGIES. FAMILY HISTORY: Diabetes mellitus, hypertension on paternal side. SOCIAL HISTORY: Polysubstance abuse, ongoing tobacco use and alcohol use. PATIENT'S HOME MEDICATIONS: 1. Folic acid 1 mg p.o. daily. 2. Multivitamin 1 tablet p.o. daily. 3. Thiamine 100 mg p.o. daily. 4. Omeprazole 40 mg p.o. daily. 5. Miralax 17 grams p.o. daily . 6. Trazodone 100 mg 2 pills p.o. at bedtime. 7. Metoprolol 25 mg p.o. b.i.d. 8. Lotrimin cream local application. 9. Gabapentin 100 p.o. 3 times a day. 10. Tums 500 mg p.o. 3 times a day. 11. Ibuprofen 800 mg p.o. q.8 hours p.r.n. for pain. 12. Pepcid 40 mg p.o. at bedtime. 13. Amlodipine 5 mg p.o. daily. 14. Metoclopramide 5 mg p.o. 3 times a day for nausea and vomiting. 15. Sucralfate 1 gram p.o. before meals and at bedtime. 16. Insulin 15 units at night. 17. Lisinopril 10 mg p.o. daily. 18. Levofloxacin 750 mg; he completed. 19. Sliding scale of insulin. PATIENT'S VITALS AT THE TIME OF ADMISSION: Temperature 99.1, heart rate 86, respirations rate 18, blood pressure 162/83. Saturating at 100% on room air. GENERAL EXAMINATION: Patient appears to be alert, oriented x3. HEAD: Pupils equal and reactive to light. HEART: S1, S2 heard. No murmur. LUNGS: Bilateral breath sounds positive. No wheezes or crackles. ABDOMEN: Soft. Positive for mild tenderness in the epigastric region. Bowel sounds are positive. EXTREMITIES: No edema. Peripheral pulses felt. SKIN: No rashes. NEUROLOGICAL: No motor or sensory deficits. PATIENT'S LABS AT THE TIME OF ADMISSION. Sodium 140, potassium 4.6, chloride 107, bicarb 20. BUN 14, creatinine 0.93. Patient's blood sugar at the time of admission was around 700. Anion gap 14. ASSESSMENT AND PLAN: 1. Hyperosmotic non-ketotic acidosis. 2. Hyponatremia, most likely pseudohyponatremia. 3. History of hypertension. 4. Chronic abdominal pain. 5. Diabetic gastroparesis. 6. Polysubstance abuse. 7. Gastroesophageal reflux disease. 8. Peripheral neuropathy. PLAN: The plan is to continue the patient on an insulin drip and Reglan for nausea and vomiting. Continue with Protonix. Continue with the rest of his home medication regimen. Further recommendations depending on the progress of the patient.
[2016-10-28 20:56] LABS: Glucose,Whole Blood 117 mg/dL (75-99)
[2016-10-28] MEDS ORDERED: traZODone HCL 100 MG TAB PO SCH (21:00)
[2016-10-28 22:23] LABS: Glucose,Whole Blood 88 mg/dL (75-99)
[2016-10-28 23:13] LABS: Hemoglobin A1C 10.6 % (4.2-6.1)
[2016-10-28 23:27] LABS: Glucose,Whole Blood 107 mg/dL (75-99)
[2016-10-29 00:19] LABS: Glucose,Whole Blood 148 mg/dL (75-99)
[2016-10-29 01:09] LABS: Glucose,Whole Blood 164 mg/dL (75-99)
[2016-10-29 02:18] LABS: Glucose,Whole Blood 186 mg/dL (75-99)
[2016-10-29] MEDS: SODIUM CHLORIDE 0.9% 1,000 ML IV SCH ×2 (02:30→14:57)
[2016-10-29 04:09] LABS: Glucose,Whole Blood 183 mg/dL (75-99)
[2016-10-29 06:06] LABS: Glucose,Whole Blood 158 mg/dL (75-99)
[2016-10-29] MEDS: HYDROcodone/APAP 5-325MG 1 EACH TAB PO PRN (06:12)
[2016-10-29 07:19] LABS: Glucose,Whole Blood 127 mg/dL (75-99)
[2016-10-29 07:25] VITALS: BP 164/93; PULSE 50; RESP 18; TEMP 97.4
[2016-10-29] MEDS ORDERED: PANTOPRAZOLE 40 MG TABLET PO SCH (07:30)
[2016-10-29] MEDS: INSULIN LISPRO (humaLOG) 300 UNIT/3 ML VIAL SQ SCH ×2 (07:52→13:12)
[2016-10-29] MEDS: SUCRALFATE 1 GM TAB PO SCH ×2 (07:52→13:14)
[2016-10-29] MEDS: CALCIUM CARBONATE 500 MG CHEWABLE PO SCH (07:52)
[2016-10-29] MEDS: METOPROLOL TARTRATE 25 MG TAB PO SCH (07:53)
[2016-10-29] MEDS: THIAMINE 100 MG TAB PO SCH (07:53)
[2016-10-29] MEDS: amLODIPine 5 MG TAB PO SCH (07:54)
[2016-10-29] MEDS: LISINOPRIL 10 MG TAB PO SCH (07:54)
[2016-10-29] MEDS: METOCLOPRAMIDE 5 MG/ML 2 ML VIAL IVP PRN (07:56)
[2016-10-29 08:18] LABS: Glucose,Whole Blood 163 mg/dL (75-99)
[2016-10-29 08:56] LABS: Anion Gap 7 mmol/L; Blood Urea Nitrogen 18 mg/dL (9-20); Calcium 8.9 mg/dL (8.4-10.2); Carbon Dioxide 22 mmol/L (22-30); Chloride 110 mmol/L (98-107); Glucose 185 mg/dL (74-99); Non-African American GFR(MDRD) >60 (>60 ml/min/1.73 sqM); Potassium 5.2 mmol/L (3.5-5.1); Sodium 139 mmol/L (137-145)
[2016-10-29 09:08] LABS: Glucose,Whole Blood 166 mg/dL (75-99)
[2016-10-29 09:30] LABS: CH 32.2; CHCM 34.3; HCT 37.6 % (39.0-53.0); HDW 2.74; HGB 12.6 gm/dL (13.0-17.5); MCH 31.7 pg (25.0-35.0); MCHC 33.6 g/dL (31.0-37.0); Mean Platelet Volume 9.2; RBC 3.98 m/uL (4.30-5.90); RDW 14.8 % (11.5-15.5); WBC 3.7 k/uL (3.8-10.6); WBC (Perox) 3.99
[2016-10-29 09:31] LABS: MCV 94.4 fL (80.0-100.0)
[2016-10-29 09:50] VITALS: BMI 25.1
[2016-10-29 09:57] LABS: Glucose,Whole Blood 126 mg/dL (75-99)
[2016-10-29 11:09] LABS: Hemoglobin A1C 10.7 % (4.2-6.1)
[2016-10-29] MEDS ORDERED: FOLIC ACID 1 MG TAB PO SCH (12:00)
[2016-10-29 12:01] LABS: Glucose,Whole Blood 78 mg/dL (75-99)
[2016-10-29 12:08] LABS: Add Differential Manual Differential
[2016-10-29 12:12] LABS: Nucleated Red Blood Cells 0 /100 WBC (0-0); Total Cells Counted 100
[2016-10-29] MEDS: MULTIVITAMINS, THERA 1 EACH TAB PO SCH (13:14)
--- NOTE | 2016-10-29 18:40 | P.DS ---
Providers Date of admission: 10/28/16 10:57 Expected date of discharge: 10/29/16 Attending physician: Verónica Lomas Primary care physician: Sofia Nunesnmkiley [facility] Course: Final Diagnoses: 1. Hyper osmolar nonketotic acidosis 2. Hyponatremia most likely pseudohyponatremia 3. Hypertension 4. Chronic abdominal pain 5. Diabetic gastroparesis 6. Polysubstance abuse 7. Gastroesophageal reflux disease 8. Peripheral neuropathy Hospital course: This is a 56-year-old gentleman admitted with significantly elevated blood glucose levels without anion gap in a patient with history of insulin-dependent diabetes mellitus, chronic abdominal pain, multiple hospital admissions for hyperglycemia and DKA and multiple other medical issues. hemoglobin A1c 10.7. Patient was treated with insulin drip, converted to home med regime. significant clinical improvement.discussed patient's noncompliance with his home med regime,recommendations for diabetes education classes, and close follow-up with his PCP.patient is being discharged home in a stable condition with guarded prognosis. The impression and plan of care has been dictated as directed as a scribe. : I performed a H&P examination of this patient and discussed the same with the dictator. I agree with the dictator's note. Any additional findings/opinions/ etc. will be noted. Patient Condition at Discharge: Stable Plan - Discharge Summary New Discharge Prescriptions: New Omeprazole [PriLOSEC] 20 mg PO AC-BID #60 cap Continue Folic Acid 1 mg PO DAILY #30 tablet Multivitamins, Thera [Multivitamin (formulary)] 1 tab PO DAILY #30 tablet Thiamine [Vitamin B-1] 100 mg PO DAILY #30 tablet Polyethylene Glycol 3350 [Miralax] 17 gm PO DAILY PRN #30 packet PRN Reason: Constipation Omeprazole [PriLOSEC] 40 mg PO AC-BRKFST #30 capsule. traZODone HCL [Desyrel] 200 mg PO HS Metoprolol Tartrate [Lopressor] 25 mg PO BID Gabapentin [Neurontin] 100 mg PO TID #60 cap Calcium Carbonate [Tums] 500 mg PO TID #1 chew amLODIPine [Norvasc] 5 mg PO DAILY Metoclopramide HCl [Reglan] 5 mg PO TID #30 tablet Sucralfate [Carafate] 1 gm PO ACHS #120 tablet Lisinopril [Zestril] 10 mg PO DAILY INSULIN LISPRO (humaLOG) [humaLOG (formulary)] See Protocol SQ AC-TID Insulin Detemir [Levemir] 15 unit SQ HS #0 vial Discontinued Clotrimazole Cream [Lotrimin Cream] 1 applic TOPICAL BID PRN PRN Reason: ANTI-FUNGAL Ibuprofen [Motrin] 800 mg PO Q8HR PRN PRN Reason: Pain Famotidine [Pepcid] 40 mg PO HS Levofloxacin [Levaquin] 750 mg PO 1800 #5 tab Discharge Medication List Folic Acid 1 mg PO DAILY #30 tablet 07/16/16 [Rx] Multivitamins, Thera [Multivitamin (formulary)] 1 tab PO DAILY #30 tablet [Rx] Thiamine [Vitamin B-1] 100 mg PO DAILY #30 tablet 07/16/16 [Rx] Omeprazole [PriLOSEC] 40 mg PO AC-BRKFST #30 capsule. 07/25/16 [Rx] Polyethylene Glycol 3350 [Miralax] 17 gm PO DAILY PRN #30 packet 07/25/16 [Rx] Metoprolol Tartrate [Lopressor] 25 mg PO BID 08/05/16 [History] traZODone HCL [Desyrel] 200 mg PO HS 08/05/16 [History] Calcium Carbonate [Tums] 500 mg PO TID #1 chew 09/02/16 [Rx] Gabapentin [Neurontin] 100 mg PO TID #60 cap 09/02/16 [Rx] amLODIPine [Norvasc] 5 mg PO DAILY 10/06/16 [History] Metoclopramide HCl [Reglan] 5 mg PO TID #30 tablet 10/07/16 [Rx] Sucralfate [Carafate] 1 gm PO ACHS #120 tablet 10/12/16 [Rx] Lisinopril [Zestril] 10 mg PO DAILY 10/20/16 [History] INSULIN LISPRO (humaLOG) [humaLOG (formulary)] See Protocol SQ AC-TID 10/28/16 [ History] Insulin Detemir [Levemir] 15 unit SQ HS #0 vial 10/29/16 [Rx] Omeprazole [PriLOSEC] 20 mg PO AC-BID #60 cap 06/13/17 [Rx] Follow up Appointment(s)/Referral(s): Sofia Emanuel MD [Primary Care Provider] - 3 Days (Pt to call for appointment per office. ) Ambulatory/Diagnostic Orders: Complete Blood Count w/diff [LAB.AMB] Time Frame: 3 Days, Location: Determined By Patient Patient Instructions/Handouts: Type 1 Diabetes in Adults (DC) Activity/Diet/Wound Care/Special Instructions: Consistent Carb diet,low potassium diet accucheks before meals and at bedtime, maintain log and take to follow up with PCP for further rec. Outpatient Diabetic Education Classe references given and highly encouraged. Discharge Disposition: HOME SELF-CARE
[2016-10-29] MEDS ORDERED: INSULIN DETEMIR 100 UNIT/ML 10 ML VIAL SQ SCH (21:00)
== END 2016-10-29 15:45 | disposition home or self-care (01) ==
LOC: EC 08:26 → 4MS4W 10:57 → INTOOBSV 10:57 → 4MS4W 11:29
PROVIDERS: ADMIT Hospitalist; ATTEND Hospitalist
DX: E87.2 Acidosis (principal); E87.1 Hypo-osmolality and hyponatremia; I13.0 Hypertensive heart and chronic kidney disease with heart failure and stage 1 through stage 4 chronic kidney disease, or unspecified chronic kidney disease; R10.9 Unspecified abdominal pain; K31.84 Gastroparesis; K21.9 Gastro-esophageal reflux disease without esophagitis; E11.22 Type 2 diabetes mellitus with diabetic chronic kidney disease; E11.42 Type 2 diabetes mellitus with diabetic polyneuropathy; I50.9 Heart failure, unspecified; E11.43 Type 2 diabetes mellitus with diabetic autonomic (poly)neuropathy; E11.65 Type 2 diabetes mellitus with hyperglycemia; E87.5 Hyperkalemia; G89.29 Other chronic pain; M06.9 Rheumatoid arthritis, unspecified; N18.3 Chronic kidney disease, stage 3 (moderate); F10.10 Alcohol abuse, uncomplicated; F11.10 Opioid abuse, uncomplicated; F14.10 Cocaine abuse, uncomplicated; L30.9 Dermatitis, unspecified; L40.9 Psoriasis, unspecified; M19.90 Unspecified osteoarthritis, unspecified site; M54.9 Dorsalgia, unspecified; Z79.4 Long term (current) use of insulin; Z79.899 Other long term (current) drug therapy; Z91.14 Patient's other noncompliance with medication regimen; Z86.14 Personal history of Methicillin resistant Staphylococcus aureus infection; Z82.49 Family history of ischemic heart disease and other diseases of the circulatory system
CPT/HCPCS: 96361 ×2; 96374; 96375; 99285; 36415; 93005; 80051; 80053; 80048; 82150; 83036 ×2; 82565; 82009; 83690; 84100; 82947; 84520; 85025 ×2; 81003; 71020; 74000; G0378 ×2; J2765 ×2; C9113; 96366

== ENCOUNTER 2016-10-31 05:00 | Inpatient (IN) | payer OTHER ==
[2016-10-31] MEDS ORDERED: INSULIN REGULAR BOLUS (FROM DRIP BAG) IV ONE (05:03)
--- NOTE | 2016-10-31 05:07 | ED ---
Abdominal Pain HPI - General Chief Complaint: Abdominal Pain Stated Complaint: Abd pain Time Seen by Provider: 10/31/16 05:03 Source: EMS Mode of arrival: EMS Limitations: no limitations - History of Present Illness MD Complaint: abdominal pain -: hour(s) Location: diffuse Migration to: no migration Severity: severe Quality: aching Consistency: constant Improves With: nothing Worsens With: nothing Associated Symptoms: nausea, vomiting - Related Data Home Medications Medication Instructions Recorded Confirmed Metoprolol Tartrate [Lopressor] 25 mg PO BID 08/05/16 10/28/16 traZODone HCL [Desyrel] 200 mg PO HS 08/05/16 10/28/16 amLODIPine [Norvasc] 5 mg PO DAILY 10/06/16 10/28/16 Lisinopril [Zestril] 10 mg PO DAILY 10/20/16 10/28/16 INSULIN LISPRO (humaLOG) [humaLOG See Protocol SQ AC-TID 10/28/16 10/28/16 (formulary)] Previous Rx's Medication Instructions Recorded Folic Acid 1 mg PO DAILY #30 tablet 07/16/16 Multivitamins, Thera [Multivitamin 1 tab PO DAILY #30 tablet 07/16/16 (formulary)] Thiamine [Vitamin B-1] 100 mg PO DAILY #30 tablet 07/16/16 Omeprazole [PriLOSEC] 40 mg PO AC-BRKFST #30 capsule.dr 07/25/16 Polyethylene Glycol 3350 [Miralax] 17 gm PO DAILY PRN #30 packet 07/25/16 Calcium Carbonate [Tums] 500 mg PO TID #1 chew 09/02/16 Gabapentin [Neurontin] 100 mg PO TID #60 cap 09/02/16 Metoclopramide HCl [Reglan] 5 mg PO TID #30 tablet 10/07/16 Sucralfate [Carafate] 1 gm PO ACHS #120 tablet 10/12/16 Insulin Detemir [Levemir] 15 unit SQ HS #0 vial 10/29/16 Omeprazole [PriLOSEC] 20 mg PO AC-BID #60 cap 10/29/16 Allergies Allergy/AdvReac Type Severity Reaction Status Date / Time No Known Allergies Allergy Verified 10/28/16 10:19 Review of Systems ROS Statement: Those systems with pertinent positive or pertinent negative responses have been documented in the HPI. ROS Other: All systems not noted in ROS Statement are negative. Constitutional: Denies: fever Respiratory: Denies: cough, dyspnea Cardiovascular: Denies: chest pain, palpitations, edema Gastrointestinal: Reports: abdominal pain, nausea, vomiting. Denies: hematemesis Genitourinary: Denies: dysuria Musculoskeletal: Denies: back pain Skin: Denies: rash Neurological: Denies: headache, weakness Past Medical History Past Medical History: Heart Failure, Diabetes Mellitus, Hypertension, Pneumonia , Renal Disease, Rheumatoid Arthritis (RA), Skin Disorder Additional Past Medical History / Comment(s): Pt recently admitted 10/20/16 sepsis 2ndary to R middle lobe pne, DKA. Other hx: IDDM poorly controlled, DKAs, diabetic gastroparesis, bilateral feet/hands peripheral neuropathy, blood behind both eyes, peptic ulcer disease/duodenal ulcer/gastritis with erosions, previous hospitalization for pulmonary edema and bilateral pleural effusion and subsequent evaluation showed a preserved LV function with an ejection fraction of around 50%, CKD stage III, normocytic chronic anemia, rheumatoid arthritis, DJD, chronic back pain, osteoarthritis-generalized, eczema, psoriasis, ear infections, hx of narcotic abuse, cocaine abuse and alcohol abuse. History of Any Multi-Drug Resistant Organisms: MRSA Date of last positivie culture/infection: 02/25/08 MDRO Source:: Neck Past Surgical History: Adenoidectomy, Tonsillectomy Additional Past Surgical History / Comment(s): colonoscopy 2008, EGD, lt great toe amp, and part of 2nd toe. Past Anesthesia/Blood Transfusion Reactions: No Reported Reaction Past Psychological History: No Psychological Hx Reported Additional Psychological History / Comment(s): PT STATED HE LIVES WITH ROOM MATES ,NO PETS. NO OUTSIDE SERVICES CURRENTLY. 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 06/18/16 toxicology + for cocaine. 06/29/16 toxicology + or cocaine. 07/06/16 toxicology + for cocaine. toxicology + cocaine 08/17/16, 10/18/16 toxicology + cocaine - Past Family History Father Family Medical History: Diabetes Mellitus, Hypertension Additional Family Medical History / Comment(s): father at the age of 82 yrs from diabetic complications. Mother Additional Family Medical History / Comment(s): pyschiatric issues. Mother is 78yrs old. General Exam Limitations: no limitations General appearance: alert, in distress Head exam: Present: atraumatic, normocephalic Eye exam: Present: normal appearance. Absent: scleral icterus, conjunctival injection ENT exam: Present: normal oropharynx Neck exam: Present: normal inspection Respiratory exam: Present: normal lung sounds bilaterally, respiratory distress (Tachypnea). Absent: wheezes, rales, rhonchi, stridor Cardiovascular Exam: Present: normal rhythm, tachycardia, normal heart sounds. Absent: systolic murmur, diastolic murmur, rubs, gallop GI/Abdominal exam: Present: soft. Absent: distended, tenderness, guarding, rebound, mass Extremities exam: Present: normal inspection, normal capillary refill. Absent: pedal edema, calf tenderness Back exam: Present: normal inspection. Absent: CVA tenderness (R), CVA tenderness (L) Neurological exam: Present: alert Skin exam: Present: warm, dry, intact, normal color. Absent: rash, cyanosis, diaphoretic, erythema, petechiae, pallor, mottled Course Vital Signs 10/31/16 10/31/16 10/31/16 05:02 05:59 06:22 Temperature 100.3 F H 100.2 F H Pulse Rate 115 H 111 H 110 H Respiratory 20 16 16 Rate Blood Pressure 172/80 152/63 144/65 O2 Sat by Pulse 98 98 97 Oximetry 10/31/16 10/31/16 06:39 06:57 Temperature Pulse Rate 108 H 103 H Respiratory 16 16 Rate Blood Pressure 159/74 184/85 O2 Sat by Pulse 100 100 Oximetry Medical Decision Making - Medical Decision Making 56-year-old man in DKA. Case discussed with admitting physician and with the sound system installer. Started on insulin and fluids. - Lab Data Result diagrams: 10/31/16 05:25 10/31/16 05:25 - EKG Data -: EKG Interpreted by Al EKG shows normal: sinus rhythm, axis (Normal), intervals (Normal), QRS complexes (Normal) Rate: tachycardia (Rate approximately 111 bpm) Interpretation: nonspecific ST-T wave changes Critical Care Time Critical Care Time: Yes (40 minutes) Disposition Clinical Impression: DKA (diabetic ketoacidoses), Vomiting, Abdominal pain, Acute hyperkalemia Disposition: ADMITTED IP TO THIS HOSP Condition: Critical
[2016-10-31 05:08] LABS: Glucose,Whole Blood >600 mg/dL (75-99)
[2016-10-31] MEDS ORDERED: ONDANSETRON 4 MG/2 ML VIAL IVP STA ×2 (05:46→08:28)
[2016-10-31] MEDS: SODIUM CHLORIDE 0.9% 1,000 ML IV SCH ×3 (05:47→17:02)
[2016-10-31] MEDS: INSULIN REGULAR 100 UNIT in SODIUM CHLORIDE 0.9% 100 ML IV SCH ×2 (05:47→15:50)
[2016-10-31 06:09] LABS: Appearance,Urine Clear (Clear); Bilirubin,Urine Negative (Negative); Glucose,Urine (UA) 4+ (Negative); Leukocyte Esterase,Urine Negative (Negative); Nitrite,Urine Negative (Negative); Protein,Urine Negative (Negative); Specific Gravity,Urine 1.016 (1.001-1.035); UA Billing (MACRO vs. MICRO) CHEM; Urobilinogen,Urine <2.0 mg/dL (<2.0)
[2016-10-31 06:16] LABS: Basophils % (A) 0 %; CH 30.6; CHCM 27.9; Eosinophils % (A) 0 %; HCT 43.7 % (39.0-53.0); HGB 12.6 gm/dL (13.0-17.5); Hypochromasia Marked; Luc % (Auto) 1; Lymphocytes # (A) 0.9 k/uL (1.0-4.8); Lymphocytes % (A) 9 %; MCH 31.9 pg (25.0-35.0); MCHC 28.8 g/dL (31.0-37.0); Macrocytosis Marked; Mean Platelet Volume 8.4; Monocytes # (A) 0.5 k/uL (0-1.0); Monocytes % (A) 6 %; Neutrophils # (A) 7.8 k/uL (1.3-7.7); Neutrophils % (A) 84 %; RBC 3.96 m/uL (4.30-5.90); RDW 14.2 % (11.5-15.5); WBC 9.4 k/uL (3.8-10.6); WBC (Perox) 9.71
[2016-10-31] MEDS ORDERED: SODIUM CHLORIDE 0.9% 2,000 ML IV ONE (06:26)
--- NOTE | 2016-10-31 06:26 | XR ---
EXAM: XR Chest, 1 View CLINICAL HISTORY: Reason: Pain TECHNIQUE: Frontal view of the chest. COMPARISON: 10/28/16 FINDINGS: Stable cardiomediastinal silhouette and pulmonary vasculature. Patient is rotated towards the right. Lungs appear clear. Improved aeration. No large effusion or pneumothorax. IMPRESSION: Improved aeration. Lungs appear clear.
[2016-10-31 06:29] LABS: Anion Gap 35 mmol/L; Calcium 9.7 mg/dL (8.4-10.2); Chloride 92 mmol/L (98-107); Non-African American GFR(MDRD) 42 (>60 ml/min/1.73 sqM); Sodium 132 mmol/L (137-145); Total Bilirubin 0.9 mg/dL (0.2-1.3); Total Protein 7.2 g/dL (6.3-8.2)
[2016-10-31 06:33] LABS: MCV 110.5 fL (80.0-100.0)
[2016-10-31 06:40] LABS: Ketones,Urine 3+ (Negative)
[2016-10-31 06:52] LABS: Glucose 1001 mg/dL (74-99); Manual Review Performed
[2016-10-31 06:53] LABS: ALT 45 U/L (21-72); AST 41 U/L (17-59); Alkaline Phosphatase 195 U/L (38-126); Blood Urea Nitrogen 29 mg/dL (9-20); Carbon Dioxide <5 mmol/L (22-30); Potassium 5.7 mmol/L (3.5-5.1)
[2016-10-31 06:53] LABS: VBG PH 7.16 (7.31-7.41)
[2016-10-31 06:54] LABS: Crenated RBC Present
[2016-10-31 06:55] LABS: Spherocytes Present
[2016-10-31 06:59] LABS: Glucose,Whole Blood >600 mg/dL (75-99)
[2016-10-31] MEDS ORDERED: POLYETHYLENE GLYCOL 3350 17 GM POWD.PACK PO PRN (08:03)
[2016-10-31 08:22] LABS: Glucose,Whole Blood >600 mg/dL (75-99)
[2016-10-31 09:45] LABS: Glucose,Whole Blood 478 mg/dL (75-99)
[2016-10-31] MEDS ORDERED: ZIPRASIDONE 20 MG VIAL IM STA (10:12)
[2016-10-31 10:17] LABS: Anion Gap 20 mmol/L; Blood Urea Nitrogen 29 mg/dL (9-20); Carbon Dioxide 15 mmol/L (22-30); Chloride 104 mmol/L (98-107); Non-African American GFR(MDRD) 50 (>60 ml/min/1.73 sqM); Phosphorous 3.1 mg/dL (2.5-4.5); Potassium 5.1 mmol/L (3.5-5.1); Sodium 139 mmol/L (137-145)
[2016-10-31 10:30] LABS: Glucose 531 mg/dL (74-99)
[2016-10-31 10:35] LABS: Glucose,Whole Blood 406 mg/dL (75-99)
[2016-10-31] MEDS: ENOXAPARIN 40 MG/0.4 ML SYRINGE SQ SCH (10:54)
[2016-10-31] MEDS: FOLIC ACID 1 MG TAB PO SCH (10:56)
[2016-10-31] MEDS: amLODIPine 5 MG TAB PO SCH (10:56)
[2016-10-31] MEDS: CALCIUM CARBONATE 500 MG CHEWABLE PO SCH ×3 (10:56→20:08)
[2016-10-31] MEDS: METOCLOPRAMIDE 5 MG TAB PO SCH ×3 (10:57→18:32)
[2016-10-31] MEDS: METOPROLOL TARTRATE 25 MG TAB PO SCH ×2 (10:57→20:08)
[2016-10-31] MEDS: GABAPENTIN 100 MG CAP PO SCH ×3 (10:57→20:08)
[2016-10-31] MEDS: LISINOPRIL 10 MG TAB PO SCH (10:57)
[2016-10-31 11:46] LABS: Glucose,Whole Blood 384 mg/dL (75-99)
[2016-10-31 11:49] VITALS: RESP 18
[2016-10-31 12:49] LABS: Glucose,Whole Blood 218 mg/dL (75-99)
[2016-10-31] MEDS: D5-0.45% NACL WITH KCL 20MEQ/L 1,000 ML IV SCH ×2 (13:22→20:06)
[2016-10-31] MEDS: SUCRALFATE 1 GM TAB PO SCH ×3 (13:22→20:08)
[2016-10-31 13:54] VITALS: BMI 22.1
[2016-10-31 13:59] LABS: Glucose,Whole Blood 200 mg/dL (75-99)
[2016-10-31 15:07] LABS: Glucose,Whole Blood 131 mg/dL (75-99)
[2016-10-31 15:22] LABS: Anion Gap 10 mmol/L; Blood Urea Nitrogen 26 mg/dL (9-20); Carbon Dioxide 23 mmol/L (22-30); Chloride 109 mmol/L (98-107); Glucose 154 mg/dL (74-99); Non-African American GFR(MDRD) >60 (>60 ml/min/1.73 sqM); Phosphorous 2.2 mg/dL (2.5-4.5); Potassium 4.5 mmol/L (3.5-5.1); Sodium 142 mmol/L (137-145)
[2016-10-31 16:05] LABS: Glucose,Whole Blood 114 mg/dL (75-99)
[2016-10-31 17:31] LABS: Glucose,Whole Blood 83 mg/dL (75-99)
[2016-10-31 18:09] LABS: Glucose,Whole Blood 96 mg/dL (75-99)
[2016-10-31 18:13] LABS: Anion Gap 7 mmol/L; Blood Urea Nitrogen 23 mg/dL (9-20); Calcium 9.2 mg/dL (8.4-10.2); Carbon Dioxide 27 mmol/L (22-30); Chloride 109 mmol/L (98-107); Glucose 82 mg/dL (74-99); Non-African American GFR(MDRD) >60 (>60 ml/min/1.73 sqM); Potassium 4.7 mmol/L (3.5-5.1); Sodium 143 mmol/L (137-145)
[2016-10-31] MEDS: PANTOPRAZOLE 40 MG TABLET PO SCH (18:32)
[2016-10-31 18:54] LABS: Glucose,Whole Blood 143 mg/dL (75-99)
[2016-10-31 19:18] LABS: Glucose,Whole Blood 136 mg/dL (75-99)
[2016-10-31] MEDS: INSULIN LISPRO (humaLOG) 300 UNIT/3 ML VIAL SQ SCH (20:15)
[2016-10-31] MEDS ORDERED: INSULIN DETEMIR 100 UNIT/ML 10 ML VIAL SQ SCH (21:00)
[2016-10-31] MEDS ORDERED: traZODone HCL 100 MG TAB PO SCH (21:00)
[2016-10-31 21:14] LABS: Glucose,Whole Blood 148 mg/dL (75-99)
[2016-11-01] MEDS: D5-0.45% NACL WITH KCL 20MEQ/L 1,000 ML IV SCH ×3 (04:41→15:27)
[2016-11-01] MEDS ORDERED: DICYCLOMINE 10 MG CAP PO ONE (05:45)
[2016-11-01] MEDS: METOCLOPRAMIDE 5 MG TAB PO SCH ×3 (06:16→17:55)
[2016-11-01] MEDS: SUCRALFATE 1 GM TAB PO SCH ×3 (06:16→17:54)
[2016-11-01] MEDS: PANTOPRAZOLE 40 MG TABLET PO SCH ×2 (06:16→17:54)
[2016-11-01 06:24] LABS: Glucose,Whole Blood 62 mg/dL (75-99)
[2016-11-01] MEDS: INSULIN LISPRO (humaLOG) 300 UNIT/3 ML VIAL SQ SCH ×3 (06:27→17:33)
[2016-11-01 06:34] LABS: Glucose,Whole Blood 80 mg/dL (75-99)
--- NOTE | 2016-11-01 08:00 | HP ---
DATE OF ADMISSION: 10/31/2016 PRESENTING COMPLAINT: Nausea, vomiting. HISTORY OF PRESENTING COMPLAINT: This is 56-year-old patient whose chronic medical conditions include peripheral artery disease, hypertension, peptic ulcer disease, peripheral neuropathy, chronic kidney disease stage III who has had multiple hospital admissions, noncompliant, brought to the hospital because of nausea, vomiting, abdominal pain. Patient was found to be in DKA, started on insulin drip. The patient ( ) liter ( ) but actually did eat some food. REVIEW OF SYSTEMS: CONSTITUTIONAL: Tired. HEENT: None. RESPIRATORY: None. CARDIOVASCULAR: None. GASTROINTESTINAL: As above. GENITOURINARY: None. MUSCULOSKELETAL: None. Dermatological: None. HEMATOLOGICAL: None. LYMPHATICS: None. PSYCHIATRY: Tired. NEUROLOGICAL: Peripheral neuropathy. PAST MEDICAL HISTORY: Diabetes mellitus, type II, insulin requiring, gastritis. Peripheral artery disease, hypertension, peptic ulcer disease, peripheral neuropathy, questionable congestive heart failure, hypertension, diabetic gastroparesis, peripheral neuropathy, diabetic retinopathy, chronic kidney disease, stage III, primary osteoarthritis in multiple joints, psoriasis, patient has done cocaine and alcohol abuse. PAST SURGICAL HISTORY: Adenoidectomy, tonsillectomy. SOCIAL HISTORY: Lives with roommates. No smoking. Does drink alcohol. Cocaine in the past. ( ) of alcohol. FAMILY HISTORY: Diabetes and hypertension. HOME MEDICATIONS: 1. Trazodone 200 milligrams q.h.s. 2. Norvasc 5 mg a day. 3. Thiamine 100 mg a day. 4. Carafate 1 gram p.o. a.c. q.h.s. 5. Miralax 100 grams p.o. daily p.r.n. 6. Prilosec 20 mg a.c. b.i.d. 7. Multivitamin 1 tablet p.o. daily. 8. Lopressor 25 p.o. b.i.d. 9. Reglan 5 mg p.o. t.i.d. 10. Zestril 10 mg p.o. daily. 11. Levemir 15 units subcu q.h.s. 12. Humalog per scale. 13. Neurontin 100 mg t.i.d. 14. Folic acid 1 mg daily. 15. TUMS 500 p.o. t.i.d. PHYSICAL EXAMINATION: Vital signs on presentation: Temperature 100.3, pulse 105, respirations 20, blood pressure 152/60, pulse ox 98% on room air. GENERAL APPEARANCE: Lying in bed, tired appearing. EYES: Pupils equal. Conjunctivae normal. NECK: JVD not raised. Mass not palpable. RESPIRATORY: Effort normal. LUNGS: Decreased breath sounds. CARDIOVASCULAR: First and second sounds normal. No edema. ABDOMEN: Soft, nontender. Liver and spleen not palpable. PSYCHIATRY: Patient is awake, answers simple questions, tired appearing. NEUROLOGICAL: Cranial nerves grossly intact. Moves all 4 limbs. INVESTIGATIONS: Vital signs on presentation: White count 9.5, hemoglobin 12.6, potassium 5.7, bicarb less than 5. BUN 29, creatinine 1.68. The patient's BUN and creatinine was 14/0.87 on 08/23/2016. Glucose 1001, serum acetone positive. Repeat Accu-Cheks have been coming down. ASSESSMENT: 1. Acute diabetic ketoacidosis. 2. Metabolic encephalopathy from diabetic ketoacidosis present on admission. 3. Chronic noncompliance. 4. Chronic cocaine dependence. 5. Troponin leak. 6. Acute renal failure prerenal from severe dehydration. 7. Hyperkalemia from metabolic acidosis. 8. Essential hypertension. 9. Peptic ulcer disease. 10. Peripheral neuropathy, diabetes mellitus, type II PLAN: Continue current medication and treatment plan. The patient responded well to diabetic ketoacidosis protocol. Home medications are resumed. Patient Levemir will be started tonight. Patient advised against alcohol. Follow.
[2016-11-01] MEDS: CALCIUM CARBONATE 500 MG CHEWABLE PO SCH ×2 (09:12→17:54)
[2016-11-01] MEDS: amLODIPine 5 MG TAB PO SCH (09:12)
[2016-11-01] MEDS: LISINOPRIL 10 MG TAB PO SCH (09:13)
[2016-11-01] MEDS: FOLIC ACID 1 MG TAB PO SCH (09:13)
[2016-11-01] MEDS: ENOXAPARIN 40 MG/0.4 ML SYRINGE SQ SCH (09:13)
[2016-11-01] MEDS: GABAPENTIN 100 MG CAP PO SCH ×2 (09:13→17:54)
[2016-11-01] MEDS: METOPROLOL TARTRATE 25 MG TAB PO SCH (09:13)
[2016-11-01] MEDS: oxyCODONE-APAP 5-325MG 1 EACH TAB PO PRN ×2 (09:27→14:49)
[2016-11-01 10:56] LABS: Basophils % (A) 0 %; CHCM 33.8; Eosinophils # (A) 0.2 k/uL (0-0.7); Eosinophils % (A) 2 %; HCT 35.2 % (39.0-53.0); HDW 2.72; HGB 11.9 gm/dL (13.0-17.5); Luc # (Auto) 0.12; Luc % (Auto) 1; Lymphocytes # (A) 1.6 k/uL (1.0-4.8); Lymphocytes % (A) 19 %; MCH 32.2 pg (25.0-35.0); MCHC 33.9 g/dL (31.0-37.0); Mean Platelet Volume 7.7; Monocytes # (A) 0.4 k/uL (0-1.0); Monocytes % (A) 5 %; Neutrophils # (A) 5.9 k/uL (1.3-7.7); Neutrophils % (A) 72 %; RDW 14.5 % (11.5-15.5); WBC 8.2 k/uL (3.8-10.6); WBC (Perox) 8.56
[2016-11-01 10:58] LABS: MCV 95.1 fL (80.0-100.0)
[2016-11-01 11:29] LABS: Anion Gap 8 mmol/L; Blood Urea Nitrogen 20 mg/dL (9-20); Calcium 8.7 mg/dL (8.4-10.2); Carbon Dioxide 21 mmol/L (22-30); Chloride 104 mmol/L (98-107); Glucose 400 mg/dL (74-99); Non-African American GFR(MDRD) >60 (>60 ml/min/1.73 sqM); Potassium 5.2 mmol/L (3.5-5.1); Sodium 133 mmol/L (137-145)
[2016-11-01 11:46] LABS: Glucose,Whole Blood 416 mg/dL (75-99)
[2016-11-01 14:30] LABS: Glucose,Whole Blood 313 mg/dL (75-99)
--- NOTE | 2016-11-01 14:40 | P.PN ---
Progress Note - Text DATE OF SERVICE: 11/01/2016 PRESENTING COMPLAINT: INTERVAL HISTORY: REVIEW OF SYSTEMS: Done for constitutional ,cardiovascular, GI, pulmonary with relevant findings as above. CURRENT MEDICATIONS PHYSICAL EXAM: VITAL SIGNS: GENERAL APPEARANCE: Lying in bed, not in distress. EYES: Pupils equal. Conjunctiva normal. NECK: JVD not raised. Mass not palpable. RESPIRATORY: Respiratory effort normal. Lungs clear to auscultation. CARDIOVASCULAR: First and second sounds normal. No edema. ABDOMEN: Soft. Liver and spleen not palpable. No tenderness. No mass palpable. PSYCHIATRY: Alert and oriented x3. Mood and affect normal. NEUROLOGICAL: Cranial nerves grossly intact. No facial asymmetry. Power and sensation grossly intact INVESTIGATIONS: ASSESSMENT: PLAN: PAYROLL MASTER statement: Patient was seen and examined by nurse practitioner Ladi Chandler in all elements of the case discussed with attending is Dr. Gutierrez
[2016-11-01 15:20] VITALS: BP 120/63; PULSE 68; TEMP 98.5
[2016-11-01] MEDS ORDERED: DICYCLOMINE 10 MG CAP PO SCH (16:00)
--- NOTE | 2016-11-02 20:41 | DS ---
DATE OF ADMISSION: 10/31/2016 DATE OF DISCHARGE: 11/01/2016 FINAL DIAGNOSES: 1. Acute diabetic ketoacidosis. 2. Metabolic encephalopathy from diabetic ketoacidosis improved. Present on admission. 3. Chronic noncompliance. 4. Chronic cocaine dependence. 5. Troponin leak. 6. Hemodynamically instability. 7. Acute renal failure, prerenal from severe dehydration. 8. Hyperkalemia from metabolic acidosis. 9. Essential hypertension. 10. Peptic ulcer disease. 11. Peripheral neuropathy, from Type 2 diabetes mellitus. HOSPITAL COURSE: This patient has had multiple admissions for noncompliance. the patient continues to drink. Presented yet again with acute renal failure, metabolic encephalopathy. Creatinine is 1.6. Did drop down to 0.97. The patient's sugars started to come down. 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 His sugars are always up and down. Instructed the patient on the importance of compliance. DISCHARGE MEDICATIONS: 1. Folate 1 mg p.o. daily. 2. Multivitamin 1 tablet daily. 3. Thiamin 100 mg p.o. daily. 4. MiraLax 17 grams p.o. daily p.r.n. 5. Lopressor 25 p.o. b.i.d. 6. Desyrel 200 mg q.h.s. 7. TUMS one p.o. t.i.d. 8. Neurontin 100 mg p.o. t.i.d. 9. Norvasc 5 mg p.o. daily. 10. Reglan 5 mg p.o. t.i.d. 11. Carafate 1 gm p.o. q.8h. 12. Zestril 10 mg p.o. daily. 13. Humalog 10 units a.c. t.i.d. 14. Levemir 15 units subcu q.h.s. 15. Prilosec 20 mg a.c. t.i.d. Follow-up with Dr. Sofia Emanuel in 2 days. On examination, LUNGS: Decreased breath sounds. ABDOMEN: Soft, nontender. PSYCH: Alert, oriented x3.
== END 2016-11-01 18:00 | disposition home or self-care (01) | DRG 637 ==
LOC: EC 05:00 → 6SEL 05:03 → 5MS5E 11-01 09:31
PROVIDERS: ADMIT Hospitalist; ATTEND Hospitalist
DX: E13.10 Other specified diabetes mellitus with ketoacidosis without coma (principal); G93.41 Metabolic encephalopathy; N17.9 Acute kidney failure, unspecified; F14.20 Cocaine dependence, uncomplicated; E87.5 Hyperkalemia; G62.9 Polyneuropathy, unspecified; I13.0 Hypertensive heart and chronic kidney disease with heart failure and stage 1 through stage 4 chronic kidney disease, or unspecified chronic kidney disease; I50.9 Heart failure, unspecified; N18.3 Chronic kidney disease, stage 3 (moderate); E86.0 Dehydration; I73.9 Peripheral vascular disease, unspecified; K27.9 Peptic ulcer, site unspecified, unspecified as acute or chronic, without hemorrhage or perforation; M06.9 Rheumatoid arthritis, unspecified; Z79.4 Long term (current) use of insulin; Z79.899 Other long term (current) drug therapy; Z82.49 Family history of ischemic heart disease and other diseases of the circulatory system; Z83.3 Family history of diabetes mellitus; Z91.19 Patient's noncompliance with other medical treatment and regimen
CPT/HCPCS: 36415; 71010; 80048; 80051; 80053; 81003; 82009; 82565; 82803; 82947; 83036; 83605; 84100; 84520; 85025; 93005; 96361; 96372; 96374; 96376; 99291

== ENCOUNTER 2016-11-10 08:32 | Inpatient (IN) | payer OTHER ==
[2016-11-10] MEDS ORDERED: SODIUM CHLORIDE 0.9% 1,000 ML IV STA (08:33)
[2016-11-10] MEDS ORDERED: ONDANSETRON 4 MG/2 ML VIAL IVP STA (08:33)
[2016-11-10 08:39] LABS: Glucose,Whole Blood >600 mg/dL (75-99)
--- NOTE | 2016-11-10 08:40 | ED ---
General Adult HPI - General Stated complaint: Nausea, Vomiting Time Seen by Provider: 11/10/16 08:33 Source: patient, EMS, RN notes reviewed Mode of arrival: EMS Limitations: no limitations - History of Present Illness Initial comments: This is a 56-year-old male well-known to the emergency department presents today via EMS chief complaint hyperglycemia. Patient states he has taken his insulin though he remains hyperglycemic. Patient states he has been having nausea and vomiting. Patient denies any fevers. Patient does have abdominal pain which is chronic in nature. Denies chest pain, shortness breath, headache or dizziness. Patient states his blood sugar has been elevating since yesterday. Patient has had multiple admissions for DKA. - Related Data Home Medications Medication Instructions Recorded Confirmed Metoprolol Tartrate [Lopressor] 25 mg PO BID 08/05/16 11/10/16 traZODone HCL [Desyrel] 200 mg PO HS 08/05/16 11/10/16 amLODIPine [Norvasc] 5 mg PO DAILY 10/06/16 11/10/16 Lisinopril [Zestril] 10 mg PO DAILY 10/20/16 11/10/16 INSULIN LISPRO (humaLOG) [humaLOG See Protocol SQ AC-TID 10/28/16 11/10/16 (formulary)] Previous Rx's Medication Instructions Recorded Folic Acid 1 mg PO DAILY #30 tablet 07/16/16 Multivitamins, Thera [Multivitamin 1 tab PO DAILY #30 tablet 07/16/16 (formulary)] Thiamine [Vitamin B-1] 100 mg PO DAILY #30 tablet 07/16/16 Polyethylene Glycol 3350 [Miralax] 17 gm PO DAILY PRN #30 packet 07/25/16 Calcium Carbonate [Tums] 500 mg PO TID #1 chew 09/02/16 Gabapentin [Neurontin] 100 mg PO TID #60 cap 09/02/16 Metoclopramide HCl [Reglan] 5 mg PO TID #30 tablet 10/07/16 Sucralfate [Carafate] 1 gm PO ACHS #120 tablet 10/12/16 Insulin Detemir [Levemir] 15 unit SQ HS #0 vial 10/29/16 Omeprazole [PriLOSEC] 20 mg PO AC-BID #60 cap 10/29/16 Allergies Allergy/AdvReac Type Severity Reaction Status Date / Time No Known Allergies Allergy Verified 11/10/16 09:38 Review of Systems ROS Statement: Those systems with pertinent positive or pertinent negative responses have been documented in the HPI. ROS Other: All systems not noted in ROS Statement are negative. Past Medical History Past Medical History: Heart Failure, Diabetes Mellitus, Hypertension, Pneumonia , Renal Disease, Rheumatoid Arthritis (RA), Skin Disorder Additional Past Medical History / Comment(s): Pt recently admitted 10/20/16 sepsis 2ndary to R middle lobe pne, DKA and on 10/28/16 with hyperosmolar nonketotic acidosis/hyponatremia. Other hx: IDDM poorly controlled, DKAs, diabetic gastroparesis, bilateral feet/hands peripheral neuropathy, blood behind both eyes, peptic ulcer disease/duodenal ulcer/gastritis with erosions, previous hospitalization for pulmonary edema and bilateral pleural effusion and subsequent evaluation showed a preserved LV function with an ejection fraction of around 50%, CKD stage III, normocytic chronic anemia, rheumatoid arthritis, DJD, chronic back pain, osteoarthritis-generalized, eczema, psoriasis, ear infections, hx of narcotic abuse, cocaine abuse and alcohol abuse. History of Any Multi-Drug Resistant Organisms: MRSA Date of last positivie culture/infection: 02/25/08 MDRO Source:: Neck Past Surgical History: Adenoidectomy, Tonsillectomy Additional Past Surgical History / Comment(s): colonoscopy 2008, EGD, lt great toe amp, and part of 2nd toe. Past Anesthesia/Blood Transfusion Reactions: No Reported Reaction Smoking Status: Never smoker - Past Family History Father Family Medical History: Diabetes Mellitus, Hypertension Additional Family Medical History / Comment(s): father at the age of 82 yrs from diabetic complications. Mother Additional Family Medical History / Comment(s): pyschiatric issues. Mother is 78yrs old. General Exam General appearance: alert, in no apparent distress Neck exam: Present: normal inspection. Absent: tenderness, meningismus, lymphadenopathy Respiratory exam: Present: normal lung sounds bilaterally. Absent: respiratory distress, wheezes, rales, rhonchi, stridor Cardiovascular Exam: Present: regular rate, normal rhythm, normal heart sounds. Absent: systolic murmur, diastolic murmur, rubs, gallop, clicks GI/Abdominal exam: Present: soft, tenderness (Diffuse moderate), normal bowel sounds. Absent: distended, guarding, rebound, rigid Back exam: Absent: CVA tenderness (R), CVA tenderness (L) Neurological exam: Present: alert, oriented X3, CN II-XII intact Skin exam: Present: warm, dry, intact, normal color. Absent: rash Course Vital Signs 11/10/16 08:42 Temperature 98.2 F Pulse Rate 102 H Respiratory 18 Rate Blood Pressure 169/81 O2 Sat by Pulse 99 Oximetry Medical Decision Making - Lab Data Result diagrams: 11/10/16 10:05 Lab Results 11/10/16 11/10/16 11/10/16 Range/Units 08:36 10:05 10:05 WBC 11.0 H (3.8-10.6) k/uL RBC 3.85 L (4.30-5.90) m/uL Hgb 12.8 L (13.0-17.5) gm/dL Hct 40.3 (39.0-53.0) % MCV 104.5 H D (80.0-100.0) fL MCH 33.2 (25.0-35.0) pg MCHC 31.8 (31.0-37.0) g/dL RDW 14.1 (11.5-15.5) % Plt Count 298 (150-450) k/uL Neutrophils % 77 % Lymphocytes % 16 % Monocytes % 6 % Eosinophils % 1 % Basophils % 0 % Neutrophils # 8.4 H (1.3-7.7) k/uL Lymphocytes # 1.7 (1.0-4.8) k/uL Monocytes # 0.6 (0-1.0) k/uL Eosinophils # 0.1 (0-0.7) k/uL Basophils # 0.0 (0-0.2) k/uL Hypochromasia Marked Macrocytosis Moderate POC Glucose (mg/dL) >600 H (75-99) mg/dL POC Glu Worm Packer ID [place], Khushi Urine Color Urine Appearance (Clear) Urine pH (5.0-8.0) Ur Specific [place] (1.001-1.035) Urine Protein (Negative) Urine Glucose (UA) (Negative) Urine Ketones (Negative) Urine Blood (Negative) Urine Nitrite (Negative) Urine Bilirubin (Negative) Urine Urobilinogen (<2.0) mg/dL Ur Leukocyte Esterase (Negative) Acetone, Qual Positive (Negative) 11/10/16 Range/Units 10:05 WBC (3.8-10.6) k/uL RBC (4.30-5.90) m/uL Hgb (13.0-17.5) gm/dL Hct (39.0-53.0) % MCV (80.0-100.0) fL MCH (25.0-35.0) pg MCHC (31.0-37.0) g/dL RDW (11.5-15.5) % Plt Count (150-450) k/uL Neutrophils % % Lymphocytes % % Monocytes % % Eosinophils % % Basophils % % Neutrophils # (1.3-7.7) k/uL Lymphocytes # (1.0-4.8) k/uL Monocytes # (0-1.0) k/uL Eosinophils # (0-0.7) k/uL Basophils # (0-0.2) k/uL Hypochromasia Macrocytosis POC Glucose (mg/dL) (75-99) mg/dL POC Glu Worm Packer ID Urine Color Colorless Urine Appearance Clear (Clear) Urine pH 5.0 (5.0-8.0) Ur Specific [place] 1.021 (1.001-1.035) Urine Protein Negative (Negative) Urine Glucose (UA) 4+ H (Negative) Urine Ketones 2+ H (Negative) Urine Blood Negative (Negative) Urine Nitrite Negative (Negative) Urine Bilirubin Negative (Negative) Urine Urobilinogen <2.0 (<2.0) mg/dL Ur Leukocyte Esterase Negative (Negative) Acetone, Qual (Negative) Disposition Clinical Impression: Vomiting, DKA (diabetic ketoacidoses) Disposition: ADMITTED IP TO THIS [facility] Condition: Fair Referrals: Sofia Emanuel MD [Primary Care Provider] - 1-2 days
[2016-11-10] MEDS ORDERED: ONDANSETRON ODT 4 MG TAB PO STA (09:40)
[2016-11-10] MEDS ORDERED: INSULIN LISPRO (humaLOG) 300 UNIT/3 ML VIAL SQ ONE (09:40)
[2016-11-10 10:20] LABS: Basophils % (A) 0 %; CH 30.7; CHCM 29.5; Eosinophils # (A) 0.1 k/uL (0-0.7); Eosinophils % (A) 1 %; HCT 40.3 % (39.0-53.0); HDW 2.72; HGB 12.8 gm/dL (13.0-17.5); Hypochromasia Marked; Luc # (Auto) 0.15; Luc % (Auto) 1; Lymphocytes # (A) 1.7 k/uL (1.0-4.8); Lymphocytes % (A) 16 %; MCH 33.2 pg (25.0-35.0); MCHC 31.8 g/dL (31.0-37.0); Macrocytosis Moderate; Mean Platelet Volume 8.8; Monocytes # (A) 0.6 k/uL (0-1.0); Monocytes % (A) 6 %; Neutrophils # (A) 8.4 k/uL (1.3-7.7); Neutrophils % (A) 77 %; RBC 3.85 m/uL (4.30-5.90); RDW 14.1 % (11.5-15.5); WBC (Perox) 10.75
[2016-11-10 10:21] LABS: MCV 104.5 fL (80.0-100.0)
[2016-11-10 10:36] LABS: Appearance,Urine Clear (Clear); Bilirubin,Urine Negative (Negative); Glucose,Urine (UA) 4+ (Negative); Leukocyte Esterase,Urine Negative (Negative); Nitrite,Urine Negative (Negative); Protein,Urine Negative (Negative); Specific Gravity,Urine 1.021 (1.001-1.035); UA Billing (MACRO vs. MICRO) CHEM; Urobilinogen,Urine <2.0 mg/dL (<2.0)
[2016-11-10 10:43] LABS: Ketones,Urine 2+ (Negative)
[2016-11-10 10:48] LABS: ALT 37 U/L (21-72); AST 30 U/L (17-59); Alkaline Phosphatase 172 U/L (38-126); Amylase 95 U/L (30-110); Anion Gap 31 mmol/L; Blood Urea Nitrogen 29 mg/dL (9-20); Calcium 9.9 mg/dL (8.4-10.2); Chloride 92 mmol/L (98-107); Non-African American GFR(MDRD) 46 (>60 ml/min/1.73 sqM); Potassium 5.5 mmol/L (3.5-5.1); Sodium 130 mmol/L (137-145); Total Bilirubin 0.9 mg/dL (0.2-1.3)
[2016-11-10 10:58] LABS: Carbon Dioxide 7 mmol/L (22-30); Glucose 954 mg/dL (74-99)
[2016-11-10] MEDS ORDERED: ONDANSETRON 4 MG/2 ML VIAL IVP PRN (11:01)
[2016-11-10 11:12] LABS: Glucose,Whole Blood >600 mg/dL (75-99)
[2016-11-10] MEDS ORDERED: INSULIN REGULAR 100 UNIT in SODIUM CHLORIDE 0.9% 100 ML IV SCH (11:15)
[2016-11-10] MEDS: SODIUM CHLORIDE 0.9% 1,000 ML IV SCH ×4 (11:19→21:36)
[2016-11-10 13:02] LABS: Glucose,Whole Blood >600 mg/dL (75-99)
[2016-11-10 13:02] LABS: Glucose,Whole Blood >600 mg/dL (75-99)
[2016-11-10] MEDS: CALCIUM CARBONATE 500 MG CHEWABLE PO SCH ×2 (14:58→17:59)
[2016-11-10 14:59] LABS: Anion Gap 18 mmol/L; Blood Urea Nitrogen 29 mg/dL (9-20); Carbon Dioxide 19 mmol/L (22-30); Chloride 104 mmol/L (98-107); Non-African American GFR(MDRD) 57 (>60 ml/min/1.73 sqM); Potassium 5.4 mmol/L (3.5-5.1); Sodium 141 mmol/L (137-145)
[2016-11-10 15:00] LABS: Glucose 450 mg/dL (74-99)
[2016-11-10 16:11] LABS: Glucose,Whole Blood 303 mg/dL (75-99)
[2016-11-10 17:13] LABS: Glucose,Whole Blood 234 mg/dL (75-99)
[2016-11-10] MEDS: D5-0.45% NACL WITH KCL 20MEQ/L 1,000 ML IV SCH ×2 (17:56→19:41)
[2016-11-10] MEDS: PANTOPRAZOLE 40 MG TABLET PO SCH (17:59)
[2016-11-10] MEDS: GABAPENTIN 100 MG CAP PO SCH ×2 (18:00→19:41)
[2016-11-10 18:30] LABS: Anion Gap 13 mmol/L; Blood Urea Nitrogen 27 mg/dL (9-20); Carbon Dioxide 26 mmol/L (22-30); Chloride 104 mmol/L (98-107); Glucose 203 mg/dL (74-99); Non-African American GFR(MDRD) >60 (>60 ml/min/1.73 sqM); Phosphorous 2.2 mg/dL (2.5-4.5); Potassium 4.3 mmol/L (3.5-5.1); Sodium 143 mmol/L (137-145)
[2016-11-10 18:35] LABS: Glucose,Whole Blood 175 mg/dL (75-99)
[2016-11-10] MEDS: METOPROLOL TARTRATE 25 MG TAB PO SCH (19:40)
[2016-11-10] MEDS: traZODone HCL 100 MG TAB PO SCH (19:40)
[2016-11-10] MEDS: MORPHINE SULFATE 2 MG/ML SYRINGE IVP PRN (19:47)
[2016-11-10 19:55] LABS: Glucose,Whole Blood 169 mg/dL (75-99)
[2016-11-10 20:36] LABS: Glucose,Whole Blood 128 mg/dL (75-99)
[2016-11-10 21:45] LABS: Glucose,Whole Blood 118 mg/dL (75-99)
[2016-11-10 22:43] LABS: Glucose,Whole Blood 108 mg/dL (75-99)
[2016-11-10] MEDS ORDERED: D5-0.45% NACL WITH KCL 20MEQ/L 1,000 ML IV SCH (23:00)
[2016-11-10 23:38] LABS: Anion Gap 5 mmol/L; Calcium 9.3 mg/dL (8.4-10.2); Carbon Dioxide 24 mmol/L (22-30); Chloride 108 mmol/L (98-107); Glucose 113 mg/dL (74-99); Non-African American GFR(MDRD) >60 (>60 ml/min/1.73 sqM); Sodium 137 mmol/L (137-145)
[2016-11-10 23:40] LABS: Blood Urea Nitrogen 24 mg/dL (9-20); Potassium 5.6 mmol/L (3.5-5.1)
[2016-11-10] MEDS ORDERED: DEXTROSE 5%-0.45% NACL 1,000 ML IV SCH (23:45)
[2016-11-10 23:50] LABS: Glucose,Whole Blood 117 mg/dL (75-99)
[2016-11-11 00:33] LABS: Glucose,Whole Blood 144 mg/dL (75-99)
[2016-11-11] MEDS: INSULIN GLARGINE 100 UNIT/ML 10 ML VIAL SQ SCH ×2 (00:52→22:35)
[2016-11-11] MEDS: SODIUM CHLORIDE 0.9% 1,000 ML IV SCH ×3 (05:55→14:30)
[2016-11-11 05:59] LABS: Glucose,Whole Blood 186 mg/dL (75-99)
[2016-11-11] MEDS: CALCIUM CARBONATE 500 MG CHEWABLE PO SCH ×3 (06:23→17:57)
[2016-11-11] MEDS: PANTOPRAZOLE 40 MG TABLET PO SCH ×2 (06:23→17:57)
[2016-11-11 06:27] LABS: Basophils % (A) 0 %; CH 32.4; CHCM 34.5; Eosinophils # (A) 0.1 k/uL (0-0.7); Eosinophils % (A) 1 %; HCT 36.4 % (39.0-53.0); HDW 2.64; HGB 11.9 gm/dL (13.0-17.5); Luc # (Auto) 0.15; Luc % (Auto) 1; Lymphocytes # (A) 2.2 k/uL (1.0-4.8); Lymphocytes % (A) 20 %; MCH 30.8 pg (25.0-35.0); MCHC 32.6 g/dL (31.0-37.0); Mean Platelet Volume 8.4; Monocytes # (A) 0.8 k/uL (0-1.0); Monocytes % (A) 7 %; Neutrophils # (A) 7.9 k/uL (1.3-7.7); Neutrophils % (A) 70 %; RBC 3.86 m/uL (4.30-5.90); RDW 15.1 % (11.5-15.5); WBC 11.2 k/uL (3.8-10.6); WBC (Perox) 11.14
[2016-11-11 06:30] LABS: MCV 94.4 fL (80.0-100.0)
[2016-11-11] MEDS: INSULIN LISPRO (humaLOG) 300 UNIT/3 ML VIAL SQ SCH ×4 (07:10→17:57)
[2016-11-11 07:16] LABS: Anion Gap 9 mmol/L; Calcium 9.1 mg/dL (8.4-10.2); Carbon Dioxide 20 mmol/L (22-30); Chloride 109 mmol/L (98-107); Glucose 172 mg/dL (74-99); Non-African American GFR(MDRD) >60 (>60 ml/min/1.73 sqM); Sodium 138 mmol/L (137-145)
[2016-11-11 07:19] LABS: Potassium 5.5 mmol/L (3.5-5.1)
[2016-11-11 07:20] LABS: ALT 25 U/L (21-72); AST 34 U/L (17-59); Alkaline Phosphatase 112 U/L (38-126); Blood Urea Nitrogen 21 mg/dL (9-20); Total Protein 6.3 g/dL (6.3-8.2)
[2016-11-11] MEDS: MORPHINE SULFATE 2 MG/ML SYRINGE IVP PRN (07:41)
--- NOTE | 2016-11-11 08:05 | HP ---
DATE OF ADMISSION: CHIEF COMPLAINT: DKA HISTORY OF PRESENT ILLNESS: This 56-year-old male, admitted to the hospital with hyperglycemia. He had nausea and vomiting, unclear etiology. He has a history of gastroparesis in the past. Due to sugar being extremely elevated he was admitted to the hospital for DKA. HOME MEDICATIONS: Lopressor, Desyrel, Norvasc, Zestril, insulin lispro, folic acid, multivitamin, thiamine, polyethylene glycol, calcium carbonate, gabapentin, Reglan, ( ), Levemir, and omeprazole. ALLERGIES: No known drug allergies. REVIEW OF SYSTEMS: Negative except for HPI. PAST MEDICAL HISTORY: Heart failure, diabetes mellitus, hypertension, pneumonia, renal disease, rheumatoid arthritis, skin disorder, recently admitted 10/20/16 due to sepsis secondary to right middle lobe pneumonia, DKA, hyperosmolar nonketotic acidosis, hyponatremia, insulin-dependent diabetes mellitus poorly controlled, diabetic gastroparesis, peripheral neuropathy, duodenal ulcer, gastritis with ulcers, bilateral pleural effusions in the past, ejection fraction about 50%, renal disease stage III, normocytic normochromatic anemia, rheumatoid arthritis, degenerative disc disease, chronic back pain, osteoarthritis eczema, psoriasis, ear infections, cocaine abuse, alcohol abuse, history of MRSA. SURGERIES: Adenoidectomy, tonsillectomy, colonoscopy, EGD. FAMILY HISTORY: Father had diabetes mellitus as well as hypertension. Father at age 82 from diabetic complications. Mother has psychiatric issues. PHYSICAL EXAM: Temp 98.2, pulse 102, respiratory rate 16 to 18, and blood pressure is 100/80's. O2 96% on room air. There is no acute distress. CARDIOVASCULAR: S1 and S2. LUNGS: Transmitted upper airway sounds. GI: Soft, mild tenderness to palpation. No mass or organomegaly. EXTREMITIES: No CVA tenderness bilaterally. NEUROLOGIC: Alert and oriented x3. SKIN: Warm, dry and intact. ASSESSMENT: 1. Acute diabetic ketoacidosis. 2. Dehydration. Continue current treatment. Follow up in the next 24 to 48 hours. Possible discharge. Will check him out for urinary tract infection and monitor his electrolytes.
[2016-11-11] MEDS: METOPROLOL TARTRATE 25 MG TAB PO SCH ×2 (08:45→22:35)
[2016-11-11] MEDS: GABAPENTIN 100 MG CAP PO SCH ×3 (08:45→22:35)
[2016-11-11] MEDS: amLODIPine 5 MG TAB PO SCH (08:45)
[2016-11-11] MEDS: LISINOPRIL 10 MG TAB PO SCH (08:45)
[2016-11-11 11:35] VITALS: BMI 25.0
[2016-11-11 11:44] LABS: Hemoglobin A1C 10.9 % (4.2-6.1)
[2016-11-11] MEDS ORDERED: FOLIC ACID 1 MG TAB PO SCH (12:00)
[2016-11-11] MEDS ORDERED: THIAMINE 100 MG TAB PO SCH (12:00)
[2016-11-11 12:04] LABS: Glucose,Whole Blood 119 mg/dL (75-99)
[2016-11-11] MEDS ORDERED: ACETAMINOPHEN TAB 325 MG TAB PO PRN (14:08)
--- NOTE | 2016-11-11 14:08 | P.PN ---
Subjective 56-year-old Meseret male being seen this morning. Currently tolerating a diet. Patient does report having "epigastric discomfort like heartburn". Patient states he did have a scope done he thinks that was several years ago he thinks "I think everything was okay". 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 Patient has frequent readmissions the month of October has been seen and admitted 4 times for acute diabetic ketoacidosis. Patient has been instructed on each visit the importance of compliance with taking his insulin as directed. Each hospitalization patient's been seen by the social insurance adviser as well as the coding educator. manager psychiatry has assisted in providing the patient with insulin resources patient has not been compliant with taking his insulin as directed hemoglobin A1c 10.9 this morning Patient's initial presentation to the emergency room with nausea vomiting. Patient has a history of gastroparesis. Blood sugars were elevated and patient was started on the DKA a protocol patient was treated for acute dehydration with IV fluid monitored closely in the emergency room the blood sugar was greater than 600. Currently this morning is down to 119 Objective - Vital Signs Vital signs: Vital Signs Temp 98.3 F 11/11/16 08:00 Pulse 71 11/11/16 08:00 Resp 18 11/11/16 08:00 BP 143/79 11/11/16 08:00 Pulse Ox 99 11/11/16 08:00 Intake & Output 11/10/16 11/11/16 11/11/16 18:59 06:59 18:59 Intake Total 1697.844 300 Balance 1697.844 300 Weight 77.111 kg 76.8 kg 76.8 kg Intake: IV 1620 D5-0.45% NaCl with KCl 1200 20Meq/l 1,000 ml @ 150 mls/hr IV .[id number] [facility] Rx# :[id number] Dextrose 5%-0.45% NaCl 1, 400 000 ml @ 50 mls/hr IV . Q20H [facility] Rx#:[id number] Insulin Regular 100 unit 20 In Sodium Chloride 0.9% 100 ml @ 0.1 UNITS/KG/HR 7.78 mls/hr IV .[id number] [facility] Rx#:[id number] Intake, IV Titration 77.844 Amount Insulin Regular 100 unit 77.844 In Sodium Chloride 0.9% 100 ml @ 0.1 UNITS/KG/HR 7.78 mls/hr IV .[id number] [facility] Rx#:[id number] Oral 300 Other: Voiding Method Incontinent Toilet # Voids 1 - Exam Physical exam 56 year old male sitting up in bed does not appear in any acute distress tolerated a diet does report having heartburn sensation Lungs essentially clear adequate air movement on room air Heart S1-S2 audible regular Abdomen soft flat nontender not distended bowel tones present Extremities no edema noted - Labs CBC & Chem 7: 11/11/16 05:51 11/11/16 05:51 Labs: Abnormal Lab Results - Last 24 Hours (Table) 11/10/16 11/10/16 11/10/16 Range/Units 14:40 15:56 17:07 WBC (3.8-10.6) k/uL RBC (4.30-5.90) m/uL Hgb (13.0-17.5) gm/dL Hct (39.0-53.0) % Neutrophils # (1.3-7.7) k/uL Potassium 5.4 H (3.5-5.1) mmol/L Chloride (98-107) mmol/L Carbon Dioxide 19 L (22-30) mmol/L BUN 29 H (9-20) mg/dL Creatinine 1.31 H (0.66-1.25) mg/dL Glucose 450 H* (74-99) mg/dL POC Glucose (mg/dL) 303 H 234 H (75-99) mg/dL Hemoglobin A1c (4.2-6.1) % Phosphorus (2.5-4.5) mg/dL Albumin (3.5-5.0) g/dL 11/10/16 11/10/16 11/10/16 Range/Units 17:47 18:32 19:38 WBC (3.8-10.6) k/uL RBC (4.30-5.90) m/uL Hgb (13.0-17.5) gm/dL Hct (39.0-53.0) % Neutrophils # (1.3-7.7) k/uL Potassium (3.5-5.1) mmol/L Chloride (98-107) mmol/L Carbon Dioxide (22-30) mmol/L BUN 27 H (9-20) mg/dL Creatinine (0.66-1.25) mg/dL Glucose 203 H (74-99) mg/dL POC Glucose (mg/dL) 175 H 169 H (75-99) mg/dL Hemoglobin A1c (4.2-6.1) % Phosphorus 2.2 L (2.5-4.5) mg/dL Albumin (3.5-5.0) g/dL 11/10/16 11/10/16 11/10/16 Range/Units 20:30 21:33 22:31 WBC (3.8-10.6) k/uL RBC (4.30-5.90) m/uL Hgb (13.0-17.5) gm/dL Hct (39.0-53.0) % Neutrophils # (1.3-7.7) k/uL Potassium (3.5-5.1) mmol/L Chloride (98-107) mmol/L Carbon Dioxide (22-30) mmol/L BUN (9-20) mg/dL Creatinine (0.66-1.25) mg/dL Glucose (74-99) mg/dL POC Glucose (mg/dL) 128 H 118 H 108 H (75-99) mg/dL Hemoglobin A1c (4.2-6.1) % Phosphorus (2.5-4.5) mg/dL Albumin (3.5-5.0) g/dL 11/10/16 11/10/16 11/11/16 Range/Units 22:42 23:38 00:31 WBC (3.8-10.6) k/uL RBC (4.30-5.90) m/uL Hgb (13.0-17.5) gm/dL Hct (39.0-53.0) % Neutrophils # (1.3-7.7) k/uL Potassium 5.6 H (3.5-5.1) mmol/L Chloride 108 H (98-107) mmol/L Carbon Dioxide (22-30) mmol/L BUN 24 H (9-20) mg/dL Creatinine (0.66-1.25) mg/dL Glucose 113 H (74-99) mg/dL POC Glucose (mg/dL) 117 H 144 H (75-99) mg/dL Hemoglobin A1c (4.2-6.1) % Phosphorus (2.5-4.5) mg/dL Albumin (3.5-5.0) g/dL 11/11/16 11/11/16 11/11/16 Range/Units 05:48 05:51 05:51 WBC 11.2 H (3.8-10.6) k/uL RBC 3.86 L (4.30-5.90) m/uL Hgb 11.9 L (13.0-17.5) gm/dL Hct 36.4 L (39.0-53.0) % Neutrophils # 7.9 H (1.3-7.7) k/uL Potassium (3.5-5.1) mmol/L Chloride (98-107) mmol/L Carbon Dioxide (22-30) mmol/L BUN (9-20) mg/dL Creatinine (0.66-1.25) mg/dL Glucose (74-99) mg/dL POC Glucose (mg/dL) 186 H (75-99) mg/dL Hemoglobin A1c 10.9 H (4.2-6.1) % Phosphorus (2.5-4.5) mg/dL Albumin (3.5-5.0) g/dL 11/11/16 11/11/16 Range/Units 05:51 11:30 WBC (3.8-10.6) k/uL RBC (4.30-5.90) m/uL Hgb (13.0-17.5) gm/dL Hct (39.0-53.0) % Neutrophils # (1.3-7.7) k/uL Potassium 5.5 H (3.5-5.1) mmol/L Chloride 109 H (98-107) mmol/L Carbon Dioxide 20 L (22-30) mmol/L BUN 21 H (9-20) mg/dL Creatinine (0.66-1.25) mg/dL Glucose 172 H (74-99) mg/dL POC Glucose (mg/dL) 119 H (75-99) mg/dL Hemoglobin A1c (4.2-6.1) % Phosphorus (2.5-4.5) mg/dL Albumin 3.3 L (3.5-5.0) g/dL Assessment and Plan Plan: Impression Present on admission intractable nausea vomiting poor oral intake clinical dehydration suspect due to acute diabetic ketoacidosis Present on admission blood sugar greater than 600 Chronic noncompliant frequent readmissions for diabetic ketoacidosis Type 2 diabetes insulin requiring uncontrolled hemoglobin A1c 10.9 Polysubstance abuse Present on admission metabolic encephalopathy suspect due to diabetic ketoacidosis improved Essential hypertension esophageal reflux disease Peripheral neuropathy Mood disorder Chronic kidney disease stage III Acute kidney injury prerenal significantly improved Present on admission hyperkalemia suspect due to chronic renal disease Echocardiogram 2015 left ventricular systolic function normal with an EF between 60 and 65% with mild pulmonary hypertension Hypertension with hypertensive heart disease moderate concentric left ventricular hypertrophy per echocardiogram 2016 History of narcotic abuse History of EGD and colonoscopy in 2008 Plan : Transferred to [facility] floor Consult Dr. cardenas possible EGD Consult coding educator Reinforce compliance with taking insulin instructed Resume home meds as appropriate Repeat labs in the morning Further recommendations pending The above impression and plan of care have been discussed and directed by signing physician. Bri Melendez nurse practitioner acting as scribe for signing physician.
[2016-11-11] MEDS: traMADol 50 MG TAB PO PRN ×2 (14:29→22:41)
[2016-11-11 17:31] LABS: Glucose,Whole Blood 133 mg/dL (75-99)
[2016-11-11 20:57] LABS: Glucose,Whole Blood 101 mg/dL (75-99)
[2016-11-11] MEDS: traZODone HCL 100 MG TAB PO SCH (22:35)
[2016-11-12 02:13] LABS: Glucose,Whole Blood 219 mg/dL (75-99)
[2016-11-12 03:52] LABS: Glucose,Whole Blood 187 mg/dL (75-99)
[2016-11-12 04:07] VITALS: RESP 16
[2016-11-12] MEDS: SODIUM CHLORIDE 0.9% 1,000 ML IV SCH ×2 (06:42→07:55)
[2016-11-12 07:11] LABS: Glucose,Whole Blood 221 mg/dL (75-99)
[2016-11-12 07:38] LABS: Basophils % (A) 0 %; CH 31.5; CHCM 32.2; Eosinophils # (A) 0.2 k/uL (0-0.7); Eosinophils % (A) 2 %; HCT 36.5 % (39.0-53.0); HDW 2.56; HGB 11.7 gm/dL (13.0-17.5); Luc # (Auto) 0.14; Luc % (Auto) 2; Lymphocytes # (A) 2.3 k/uL (1.0-4.8); Lymphocytes % (A) 35 %; MCH 31.6 pg (25.0-35.0); MCHC 32.2 g/dL (31.0-37.0); MCV 98.2 fL (80.0-100.0); Mean Platelet Volume 8.3; Monocytes # (A) 0.4 k/uL (0-1.0); Monocytes % (A) 6 %; Neutrophils # (A) 3.5 k/uL (1.3-7.7); Neutrophils % (A) 54 %; RBC 3.71 m/uL (4.30-5.90); WBC 6.4 k/uL (3.8-10.6); WBC (Perox) 6.55
[2016-11-12] MEDS: INSULIN LISPRO (humaLOG) 300 UNIT/3 ML VIAL SQ SCH (07:47)
[2016-11-12] MEDS: PANTOPRAZOLE 40 MG TABLET PO SCH (08:07)
[2016-11-12] MEDS: CALCIUM CARBONATE 500 MG CHEWABLE PO SCH (08:07)
[2016-11-12] MEDS: amLODIPine 5 MG TAB PO SCH (08:07)
--- NOTE | 2016-11-12 08:07 | P.GSCN ---
History of Present Illness Consult date: 11/11/16 Reason for Consult: Epigastric dull pain History of present illness: This a 56-year-old male who is being treated for diabetic ketoacidosis. Patient developed some vague epigastric dull pain. Patient states pain is mainly epigastric with some radiation to his back. He has had multiple admissions for DKA. Past Medical History Past Medical History: Heart Failure, Diabetes Mellitus, Hypertension, Pneumonia , Renal Disease, Rheumatoid Arthritis (RA), Skin Disorder Additional Past Medical History / Comment(s): Pt recently admitted 10/20/16 sepsis 2ndary to R middle lobe pne, DKA and on 10/28/16 with hyperosmolar nonketotic acidosis/hyponatremia. Other hx: IDDM poorly controlled, DKAs, diabetic gastroparesis, bilateral feet/hands peripheral neuropathy, blood behind both eyes, peptic ulcer disease/duodenal ulcer/gastritis with erosions, previous hospitalization for pulmonary edema and bilateral pleural effusion and subsequent evaluation showed a preserved LV function with an ejection fraction of around 50%, CKD stage III, normocytic chronic anemia, rheumatoid arthritis, DJD, chronic back pain, osteoarthritis-generalized, eczema, psoriasis, ear infections, hx of narcotic abuse, cocaine abuse and alcohol abuse. History of Any Multi-Drug Resistant Organisms: MRSA Year Discovered:: 02/25/08 MDRO Source:: Neck Past Surgical History: Adenoidectomy, Tonsillectomy Additional Past Surgical History / Comment(s): colonoscopy 2008, EGD, lt great toe amp, and part of 2nd toe. Past Anesthesia/Blood Transfusion Reactions: No Reported Reaction Past Psychological History: No Psychological Hx Reported Additional Psychological History / Comment(s): PT STATED HE LIVES WITH ROOM MATES ,NO PETS. NO OUTSIDE SERVICES CURRENTLY. 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 Mother Additional Family Medical History / Comment(s): pyschiatric issues. Mother is 78yrs old. Medications and Allergies Home Medications Medication Instructions Recorded Confirmed Type Metoprolol Tartrate [Lopressor] 25 mg PO BID 08/05/16 11/10/16 History traZODone HCL [Desyrel] 200 mg PO HS 08/05/16 11/10/16 History amLODIPine [Norvasc] 5 mg PO DAILY 10/06/16 11/10/16 History Lisinopril [Zestril] 10 mg PO DAILY 10/20/16 11/10/16 History INSULIN LISPRO (humaLOG) [humaLOG See Protocol SQ AC-TID 10/28/16 11/10/16 History (formulary)] Allergies Allergy/AdvReac Type Severity Reaction Status Date / Time No Known Allergies Allergy Verified 11/10/16 09:38 Surgical - Exam Vital Signs Temp Pulse Resp BP Pulse Ox 98.2 F 102 H 18 169/81 99 11/10/16 08:42 11/10/16 08:42 11/10/16 08:42 11/10/16 08:42 11/10/16 08:42 - General well developed, no distress - Eyes PERRL - ENT normal pinna - Neck no masses - Respiratory normal expansion - Cardiovascular Rhythm: regular - Abdomen Mild epigastric pain Abdomen: soft Results - Labs 11/12/16 07:03 11/11/16 05:51 Abnormal Lab Results - Last 24 Hours (Table) 11/11/16 11/11/16 11/11/16 Range/Units 05:51 11:30 17:27 RBC (4.30-5.90) m/uL Hgb (13.0-17.5) gm/dL Hct (39.0-53.0) % POC Glucose (mg/dL) 119 H 133 H (75-99) mg/dL Hemoglobin A1c 10.9 H (4.2-6.1) % 11/11/16 11/12/16 11/12/16 Range/Units 20:55 02:04 03:51 RBC (4.30-5.90) m/uL Hgb (13.0-17.5) gm/dL Hct (39.0-53.0) % POC Glucose (mg/dL) 101 H 219 H 187 H (75-99) mg/dL Hemoglobin A1c (4.2-6.1) % 11/12/16 11/12/16 Range/Units 07:03 07:09 RBC 3.71 L (4.30-5.90) m/uL Hgb 11.7 L (13.0-17.5) gm/dL Hct 36.5 L (39.0-53.0) % POC Glucose (mg/dL) 221 H (75-99) mg/dL Hemoglobin A1c (4.2-6.1) % Diabetes panel 11/11/16 Range/Units 05:51 Hemoglobin A1c 10.9 H (4.2-6.1) % Assessment and Plan Plan: DKA Mild epigastric abdominal pain The patient will be observed. We'll plan for EGD when medically stable.
[2016-11-12] MEDS: LISINOPRIL 10 MG TAB PO SCH (08:08)
[2016-11-12] MEDS: METOPROLOL TARTRATE 25 MG TAB PO SCH (08:08)
[2016-11-12] MEDS: GABAPENTIN 100 MG CAP PO SCH (08:08)
[2016-11-12 08:12] VITALS: BP 125/45; PULSE 61; TEMP 97.3
[2016-11-12 08:22] LABS: Anion Gap 7 mmol/L; Calcium 8.8 mg/dL (8.4-10.2); Carbon Dioxide 21 mmol/L (22-30); Chloride 109 mmol/L (98-107); Glucose 253 mg/dL (74-99); Non-African American GFR(MDRD) >60 (>60 ml/min/1.73 sqM); Sodium 137 mmol/L (137-145); Total Bilirubin 0.5 mg/dL (0.2-1.3); Total Protein 5.7 g/dL (6.3-8.2)
--- NOTE | 2016-11-12 08:23 | P.DS ---
Providers Date of admission: 11/10/16 11:54 Expected date of discharge: 11/12/16 Attending physician: Nimesh De Luna Consults: 11/11/16 13:52 Consult Physician Urgent Consulting Provider: Calos Cardenas Consult Reason/Comments: Possible EGD Do you want consulting provider notified?: Yes Primary care physician: [facility] Course: 56-year-old Meseret male being seen this morning. Currently tolerating a diet. Patient does report having "epigastric discomfort like heartburn". Patient states he did have a scope done he thinks that was several years ago he thinks "I think everything was okay". 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 Patient has frequent readmissions the month of October has been seen and admitted 4 times for acute diabetic ketoacidosis. Patient has been instructed on each visit the importance of compliance with taking his insulin as directed. Each hospitalization patient's been seen by the marriage and family social worker as well as the wellness educator. personnel generalist manager has assisted in providing the patient with insulin resources patient has not been compliant with taking his insulin as directed hemoglobin A1c 10.9 this morning patient had an EGD in 2008 by reviewing computerized record patient was seen by surgical service Dr. cardenas who indicated the EGD could be done in an outpatient setting he would see the patient in follow-up visit and arrange EGD blood glucose levels had improved after initiating insulin. Patient was felt to be medically stable and appropriate proceed with a discharge to home Impression Present on admission intractable nausea vomiting poor oral intake clinical dehydration suspect due to acute diabetic ketoacidosis Present on admission blood sugar greater than 600 due to DKA Chronic noncompliant frequent readmissions for diabetic ketoacidosis likely due to noncompliance with taking insulin and following up Type 2 diabetes insulin requiring uncontrolled hemoglobin A1c 10.9 Polysubstance abuse Present on admission metabolic encephalopathy suspect due to diabetic ketoacidosis improved Essential hypertension esophageal reflux disease Peripheral neuropathy Mood disorder Chronic kidney disease stage III Acute kidney injury prerenal significantly improved Present on admission hyperkalemia suspect due to chronic renal disease Echocardiogram 2016 left ventricular systolic function normal with an EF between 60 and 65% with mild pulmonary hypertension Hypertension with hypertensive heart disease moderate concentric left ventricular hypertrophy per echocardiogram 2016 History of narcotic abuse History of EGD and colonoscopy in 2008 The above impression and plan of care have been discussed and directed by signing physician. Bri Melendez nurse practitioner acting as scribe for signing physician. Patient Condition at Discharge: Fair Plan - Discharge Summary New Discharge Prescriptions: New Acetaminophen Tab [Tylenol] 650 mg PO Q6HR PRN tab PRN Reason: Fever And/ Or Pain Continue Folic Acid 1 mg PO DAILY #30 tablet Multivitamins, Thera [Multivitamin (formulary)] 1 tab PO DAILY #30 tablet Thiamine [Vitamin B-1] 100 mg PO DAILY #30 tablet Polyethylene Glycol 3350 [Miralax] 17 gm PO DAILY PRN #30 packet PRN Reason: Constipation traZODone HCL [Desyrel] 200 mg PO HS Metoprolol Tartrate [Lopressor] 25 mg PO BID Gabapentin [Neurontin] 100 mg PO TID #60 cap Calcium Carbonate [Tums] 500 mg PO TID #1 chew amLODIPine [Norvasc] 5 mg PO DAILY Metoclopramide HCl [Reglan] 5 mg PO TID #30 tablet Sucralfate [Carafate] 1 gm PO ACHS #120 tablet Lisinopril [Zestril] 10 mg PO DAILY INSULIN LISPRO (humaLOG) [humaLOG (formulary)] See Protocol SQ AC-TID Omeprazole [PriLOSEC] 20 mg PO AC-BID #60 cap Insulin Detemir [Levemir] 15 unit SQ HS #0 vial Discharge Medication List Folic Acid 1 mg PO DAILY #30 tablet 07/16/16 [Rx] Multivitamins, Thera [Multivitamin (formulary)] 1 tab PO DAILY #30 tablet [Rx] Thiamine [Vitamin B-1] 100 mg PO DAILY #30 tablet 07/16/16 [Rx] Polyethylene Glycol 3350 [Miralax] 17 gm PO DAILY PRN #30 packet 07/25/16 [Rx] Metoprolol Tartrate [Lopressor] 25 mg PO BID 08/05/16 [History] traZODone HCL [Desyrel] 200 mg PO HS 08/05/16 [History] Calcium Carbonate [Tums] 500 mg PO TID #1 chew 09/02/16 [Rx] Gabapentin [Neurontin] 100 mg PO TID #60 cap 09/02/16 [Rx] amLODIPine [Norvasc] 5 mg PO DAILY 10/06/16 [History] Metoclopramide HCl [Reglan] 5 mg PO TID #30 tablet 10/07/16 [Rx] Sucralfate [Carafate] 1 gm PO ACHS #120 tablet 10/12/16 [Rx] Lisinopril [Zestril] 10 mg PO DAILY 10/20/16 [History] INSULIN LISPRO (humaLOG) [humaLOG (formulary)] See Protocol SQ AC-TID 10/28/16 [ History] Insulin Detemir [Levemir] 15 unit SQ HS #0 vial 10/29/16 [Rx] Omeprazole [PriLOSEC] 20 mg PO AC-BID #60 cap 10/29/16 [Rx] Acetaminophen Tab [Tylenol] 650 mg PO Q6HR PRN tab 11/12/16 [Rx] Follow up Appointment(s)/Referral(s): Sofia Emanuel MD [Primary Care Provider] - 1-2 days Calos Cardenas MD [STAFF PHYSICIAN] - 1 Week Discharge Disposition: HOME SELF-CARE
[2016-11-12 08:44] LABS: AST 29 U/L (17-59); Blood Urea Nitrogen 16 mg/dL (9-20); Potassium 5.2 mmol/L (3.5-5.1)
[2016-11-12 08:45] LABS: ALT 23 U/L (21-72); Alkaline Phosphatase 89 U/L (38-126)
== END 2016-11-12 10:24 | disposition home or self-care (01) | DRG 637 ==
LOC: EC 08:32 → 6SEL 11:54 → 5MS5E 11-11 15:43
PROVIDERS: ADMIT Family Medicine; ATTEND Family Medicine
DX: E13.10 Other specified diabetes mellitus with ketoacidosis without coma (principal); G93.41 Metabolic encephalopathy; I27.2 Other secondary pulmonary hypertension; N17.9 Acute kidney failure, unspecified; I13.0 Hypertensive heart and chronic kidney disease with heart failure and stage 1 through stage 4 chronic kidney disease, or unspecified chronic kidney disease; K31.84 Gastroparesis; N18.3 Chronic kidney disease, stage 3 (moderate); I50.9 Heart failure, unspecified; E87.5 Hyperkalemia; E11.43 Type 2 diabetes mellitus with diabetic autonomic (poly)neuropathy; E11.22 Type 2 diabetes mellitus with diabetic chronic kidney disease; E11.42 Type 2 diabetes mellitus with diabetic polyneuropathy; E86.0 Dehydration; K21.9 Gastro-esophageal reflux disease without esophagitis; F39 Unspecified mood [affective] disorder; M06.9 Rheumatoid arthritis, unspecified; D64.9 Anemia, unspecified; F10.10 Alcohol abuse, uncomplicated; F14.10 Cocaine abuse, uncomplicated; F11.10 Opioid abuse, uncomplicated; G89.29 Other chronic pain; L40.9 Psoriasis, unspecified; M19.91 Primary osteoarthritis, unspecified site; M54.9 Dorsalgia, unspecified; Z91.19 Patient's noncompliance with other medical treatment and regimen; Z83.3 Family history of diabetes mellitus; Z86.14 Personal history of Methicillin resistant Staphylococcus aureus infection; Z87.11 Personal history of peptic ulcer disease; Z79.4 Long term (current) use of insulin; Z79.899 Other long term (current) drug therapy
CPT/HCPCS: 36415; 80048; 80051; 80053; 81003; 82009; 82150; 82565; 82947; 83036; 83690; 84100; 84520; 85025; 96361; 96374; 99285

== ENCOUNTER 2016-11-19 13:54 | Inpatient (IN) | payer OTHER ==
[2016-11-19] MEDS ORDERED: SODIUM CHLORIDE 0.9% 2,000 ML IV STA (14:29)
[2016-11-19] MEDS ORDERED: ONDANSETRON 4 MG/2 ML VIAL IVP STA (14:29)
--- NOTE | 2016-11-19 15:05 | ED ---
Abdominal Pain HPI - General Source: patient, EMS, RN notes reviewed Mode of arrival: EMS Limitations: no limitations <Irma Foster - Last Filed: 11/19/16 15:42> <Jaspreet Ibarra - Last Filed: 11/19/16 15:51> - General Chief Complaint: Abdominal Pain Stated Complaint: Weakness Time Seen by Provider: 11/19/16 14:21 - History of Present Illness Initial Comments: 56-year-old male presents emergency Department chief complaint of weakness and not feeling right. Patient states he does not know how high his sugars are. Patient states that fever chills. Patient admits nausea vomiting diarrhea. Patient states he did use insulin yesterday. Patient states his sugar was reading high. Patient apparently seen in the ER for this complaint. Patient admits to abdominal pain with this as well.Patient denies any recent fever, chills, shortness of breath, chest pain, back pain, numbness or tingling, dysuria or hematuria, constipation, headaches or visual changes, or any other current symptoms. (Irma Foster) - Related Data Home Medications Medication Instructions Recorded Confirmed Metoprolol Tartrate [Lopressor] 25 mg PO BID 08/05/16 11/19/16 traZODone HCL [Desyrel] 200 mg PO HS 08/05/16 11/19/16 amLODIPine [Norvasc] 5 mg PO DAILY 10/06/16 11/19/16 Lisinopril [Zestril] 10 mg PO DAILY 10/20/16 11/19/16 INSULIN LISPRO (humaLOG) [humaLOG See Protocol SQ AC-TID 10/28/16 11/19/16 (formulary)] Previous Rx's Medication Instructions Recorded Folic Acid 1 mg PO DAILY #30 tablet 07/16/16 Multivitamins, Thera [Multivitamin 1 tab PO DAILY #30 tablet 07/16/16 (formulary)] Thiamine [Vitamin B-1] 100 mg PO DAILY #30 tablet 07/16/16 Polyethylene Glycol 3350 [Miralax] 17 gm PO DAILY PRN #30 packet 07/25/16 Calcium Carbonate [Tums] 500 mg PO TID #1 chew 09/02/16 Gabapentin [Neurontin] 100 mg PO TID #60 cap 09/02/16 Metoclopramide HCl [Reglan] 5 mg PO TID #30 tablet 10/07/16 Sucralfate [Carafate] 1 gm PO ACHS #120 tablet 10/12/16 Insulin Detemir [Levemir] 15 unit SQ HS #0 vial 10/29/16 Omeprazole [PriLOSEC] 20 mg PO AC-BID #60 cap 10/29/16 Acetaminophen Tab [Tylenol] 650 mg PO Q6HR PRN tab 11/12/16 Allergies Allergy/AdvReac Type Severity Reaction Status Date / Time No Known Allergies Allergy Verified 11/19/16 14:48 Review of Systems ROS Other: All systems not noted in ROS Statement are negative. <Irma Foster - Last Filed: 11/19/16 15:42> ROS Other: All systems not noted in ROS Statement are negative. <Jaspreet Ibarra - Last Filed: 11/19/16 15:51> ROS Statement: Those systems with pertinent positive or pertinent negative responses have been documented in the HPI. Past Medical History Past Medical History: Heart Failure, Diabetes Mellitus, Hypertension, Pneumonia , Renal Disease, Rheumatoid Arthritis (RA), Skin Disorder Additional Past Medical History / Comment(s): Pt recently admitted 10/20/16 sepsis 2ndary to R middle lobe pne, DKA and on 10/28/16 with hyperosmolar nonketotic acidosis/hyponatremia. Other hx: IDDM poorly controlled, DKAs, diabetic gastroparesis, bilateral feet/hands peripheral neuropathy, blood behind both eyes, peptic ulcer disease/duodenal ulcer/gastritis with erosions, previous hospitalization for pulmonary edema and bilateral pleural effusion and subsequent evaluation showed a preserved LV function with an ejection fraction of around 50%, CKD stage III, normocytic chronic anemia, rheumatoid arthritis, DJD, chronic back pain, osteoarthritis-generalized, eczema, psoriasis, ear infections, hx of narcotic abuse, cocaine abuse and alcohol abuse. History of Any Multi-Drug Resistant Organisms: MRSA Date of last positivie culture/infection: 02/25/08 MDRO Source:: Neck Past Surgical History: Adenoidectomy, Tonsillectomy Additional Past Surgical History / Comment(s): colonoscopy 2008, EGD, lt great toe amp, and part of 2nd toe. Past Anesthesia/Blood Transfusion Reactions: No Reported Reaction Past Psychological History: No Psychological Hx Reported Smoking Status: Never smoker Past Alcohol Use History: None Reported Past Drug Use History: None Reported - Past Family History Father Family Medical History: Diabetes Mellitus, Hypertension Additional Family Medical History / Comment(s): father at the age of 82 yrs from diabetic complications. Mother Additional Family Medical History / Comment(s): pyschiatric issues. Mother is 78yrs old. <Irma Foster - Last Filed: 11/19/16 15:42> General Exam Limitations: no limitations General appearance: alert, in no apparent distress Head exam: Present: atraumatic, normocephalic, normal inspection ENT exam: Present: normal exam, mucous membranes moist Neck exam: Present: normal inspection. Absent: tenderness, meningismus, lymphadenopathy Respiratory exam: Present: normal lung sounds bilaterally. Absent: respiratory distress, wheezes, rales, rhonchi, stridor Cardiovascular Exam: Present: regular rate, normal rhythm, normal heart sounds. Absent: systolic murmur, diastolic murmur, rubs, gallop, clicks GI/Abdominal exam: Present: soft, normal bowel sounds. Absent: distended, tenderness, guarding, rebound, rigid Neurological exam: Present: alert, oriented X3 Psychiatric exam: Present: normal affect, normal mood Skin exam: Present: warm, dry, intact, normal color. Absent: rash <Irma Foster - Last Filed: 11/19/16 15:42> General appearance: alert, in no apparent distress, anxious, in distress Head exam: Present: atraumatic, normocephalic, normal inspection Eye exam: Present: normal appearance, PERRL, EOMI. Absent: scleral icterus, conjunctival injection, periorbital swelling ENT exam: Present: mucous membranes dry Neck exam: Present: normal inspection. Absent: tenderness, meningismus, lymphadenopathy Respiratory exam: Present: normal lung sounds bilaterally. Absent: respiratory distress, wheezes, rales, rhonchi, stridor Cardiovascular Exam: Present: normal rhythm, tachycardia, normal heart sounds. Absent: systolic murmur, diastolic murmur, rubs, gallop, clicks GI/Abdominal exam: Present: soft, normal bowel sounds. Absent: distended, tenderness, guarding, rebound, rigid Extremities exam: Present: normal inspection, full ROM, normal capillary refill. Absent: tenderness, pedal edema, joint swelling, calf tenderness Back exam: Present: normal inspection Neurological exam: Present: alert, oriented X3, CN II-XII intact Psychiatric exam: Present: normal affect, normal mood Skin exam: Present: warm, dry, intact, normal color. Absent: rash <Jaspreet Ibarra - Last Filed: 11/19/16 15:51> Course <Irma Foster - Last Filed: 11/19/16 15:42> <Jaspreet Ibarra - Last Filed: 11/19/16 15:51> Vital Signs 11/19/16 11/19/16 14:26 15:32 Temperature 98.1 F 97.9 F Pulse Rate 102 H 96 Respiratory 22 14 Rate Blood Pressure 195/93 152/72 O2 Sat by Pulse 100 100 Oximetry - Reevaluation(s) Reevaluation #1: 11/19/16 15:50 Patient is showing improvement with IV hydration (Jaspreet Ibarra) Medical Decision Making - Lab Data Result diagrams: 11/19/16 14:55 11/19/16 14:55 - EKG Data -: EKG Interpreted by Me <Irma Foster - Last Filed: 11/19/16 15:42> - Lab Data Result diagrams: 11/19/16 14:55 11/19/16 14:55 <Jaspreet Ibarra - Last Filed: 11/19/16 15:51> - Medical Decision Making 56-year-old male presents emergency department with a chief complaint of hyperglycemia. At this time patient does appear to be in DKA. We will start an insulin drip and admit the patient at this time. Patient is in agreement with this plan. All questions have been answered. (Irma Foster) 56 now with acute on chronic disease, patient coming in with positive DKA, severe dehydration. Patient be admitted for resuscitation, monitoring of electrolytes, treatment of DKA (Jaspreet Ibarra) - Lab Data Lab Results 11/19/16 11/19/16 11/19/16 Range/Units 14:55 14:55 14:55 WBC 8.5 (3.8-10.6) k/uL RBC 4.28 L (4.30-5.90) m/uL Hgb 13.9 (13.0-17.5) gm/dL Hct 44.1 (39.0-53.0) % MCV 102.9 H (80.0-100.0) fL MCH 32.5 (25.0-35.0) pg MCHC 31.6 (31.0-37.0) g/dL RDW 14.5 (11.5-15.5) % Plt Count 331 (150-450) k/uL Neutrophils % 80 % Lymphocytes % 15 % Monocytes % 4 % Eosinophils % 0 % Basophils % 0 % Neutrophils # 6.8 (1.3-7.7) k/uL Lymphocytes # 1.3 (1.0-4.8) k/uL Monocytes # 0.3 (0-1.0) k/uL Eosinophils # 0.0 (0-0.7) k/uL Basophils # 0.0 (0-0.2) k/uL Hypochromasia Marked Macrocytosis Slight Sodium 137 (137-145) mmol/L Potassium 4.9 (3.5-5.1) mmol/L Chloride 94 L (98-107) mmol/L Carbon Dioxide 9 L* (22-30) mmol/L Anion Gap 34 mmol/L BUN 17 (9-20) mg/dL Creatinine 1.20 (0.66-1.25) mg/dL Est GFR (MDRD) Af Amer >60 (>60 ml/min/1.73 sqM) Est GFR (MDRD) Non-Af >60 (>60 ml/min/1.73 sqM) Glucose 692 H* (74-99) mg/dL POC Glucose (mg/dL) (75-99) mg/dL POC Glu Digital Analyst ID Plasma Lactic Acid Eliazar 5.7 H* (0.7-2.0) mmol/L Calcium 9.9 (8.4-10.2) mg/dL Phosphorus 5.4 H (2.5-4.5) mg/dL Magnesium 2.0 (1.6-2.3) mg/dL Total Bilirubin 0.9 (0.2-1.3) mg/dL AST 24 (17-59) U/L ALT 39 (21-72) U/L Alkaline Phosphatase 184 H (38-126) U/L Total Protein 7.2 (6.3-8.2) g/dL Albumin 4.5 (3.5-5.0) g/dL Amylase 77 (30-110) U/L Lipase 32 (23-300) U/L Acetone, Qual Positive (Negative) 11/19/16 11/19/16 Range/Units 15:25 15:28 WBC (3.8-10.6) k/uL RBC (4.30-5.90) m/uL Hgb (13.0-17.5) gm/dL Hct (39.0-53.0) % MCV (80.0-100.0) fL MCH (25.0-35.0) pg MCHC (31.0-37.0) g/dL RDW (11.5-15.5) % Plt Count (150-450) k/uL Neutrophils % % Lymphocytes % % Monocytes % % Eosinophils % % Basophils % % Neutrophils # (1.3-7.7) k/uL Lymphocytes # (1.0-4.8) k/uL Monocytes # (0-1.0) k/uL Eosinophils # (0-0.7) k/uL Basophils # (0-0.2) k/uL Hypochromasia Macrocytosis Sodium (137-145) mmol/L Potassium (3.5-5.1) mmol/L Chloride (98-107) mmol/L Carbon Dioxide (22-30) mmol/L Anion Gap mmol/L BUN (9-20) mg/dL Creatinine (0.66-1.25) mg/dL Est GFR (MDRD) Af Amer (>60 ml/min/1.73 sqM) Est GFR (MDRD) Non-Af (>60 ml/min/1.73 sqM) Glucose (74-99) mg/dL POC Glucose (mg/dL) >600 H 558 H (75-99) mg/dL POC Glu Digital Analyst ID McDaid, Meli McDaid, Meli Plasma Lactic Acid Eliazar (0.7-2.0) mmol/L Calcium (8.4-10.2) mg/dL Phosphorus (2.5-4.5) mg/dL Magnesium (1.6-2.3) mg/dL Total Bilirubin (0.2-1.3) mg/dL AST (17-59) U/L ALT (21-72) U/L Alkaline Phosphatase (38-126) U/L Total Protein (6.3-8.2) g/dL Albumin (3.5-5.0) g/dL Amylase (30-110) U/L Lipase (23-300) U/L Acetone, Qual (Negative) 11/19/16 15:04 normal sinus rhythm 97 bpm, normal axis, no atopy, no S-T depressions or elevations, bilateral arterial enlargement, left ventricular hypertrophy (Irma Foster) Critical Care Time Critical Care Time: Yes Total Critical Care Time: 31 <Jaspreet Ibarra - Last Filed: 11/19/16 15:51> Disposition Time of Disposition: 15:43 Decision Date: 11/19/16 Decision Time: 15:43 <Irma Foster - Last Filed: 11/19/16 15:42> <Jaspreet Ibarra - Last Filed: 11/19/16 15:51> Clinical Impression: DKA (diabetic ketoacidoses) Disposition: ADMITTED IP TO THIS HOSP Condition: Serious Referrals: Sofia Emanuel MD [Primary Care Provider] - 1-2 days
[2016-11-19 15:23] LABS: ALT 39 U/L (21-72); AST 24 U/L (17-59); Alkaline Phosphatase 184 U/L (38-126); Amylase 77 U/L (30-110); Anion Gap 34 mmol/L; Blood Urea Nitrogen 17 mg/dL (9-20); Calcium 9.9 mg/dL (8.4-10.2); Chloride 94 mmol/L (98-107); Non-African American GFR(MDRD) >60 (>60 ml/min/1.73 sqM); Phosphorous 5.4 mg/dL (2.5-4.5); Potassium 4.9 mmol/L (3.5-5.1); Sodium 137 mmol/L (137-145); Total Bilirubin 0.9 mg/dL (0.2-1.3); Total Protein 7.2 g/dL (6.3-8.2)
[2016-11-19 15:27] LABS: Basophils % (A) 0 %; CH 30.5; CHCM 29.8; Eosinophils % (A) 0 %; HCT 44.1 % (39.0-53.0); HDW 2.69; HGB 13.9 gm/dL (13.0-17.5); Hypochromasia Marked; Luc % (Auto) 1; Lymphocytes # (A) 1.3 k/uL (1.0-4.8); Lymphocytes % (A) 15 %; MCH 32.5 pg (25.0-35.0); MCHC 31.6 g/dL (31.0-37.0); MCV 102.9 fL (80.0-100.0); Macrocytosis Slight; Mean Platelet Volume 8.2; Monocytes # (A) 0.3 k/uL (0-1.0); Monocytes % (A) 4 %; Neutrophils # (A) 6.8 k/uL (1.3-7.7); Neutrophils % (A) 80 %; RBC 4.28 m/uL (4.30-5.90); RDW 14.5 % (11.5-15.5); WBC 8.5 k/uL (3.8-10.6); WBC (Perox) 8.13
[2016-11-19 15:29] LABS: Glucose,Whole Blood >600 mg/dL (75-99)
[2016-11-19 15:29] LABS: Glucose,Whole Blood 558 mg/dL (75-99)
[2016-11-19 15:35] LABS: Glucose 692 mg/dL (74-99)
[2016-11-19 15:36] LABS: Carbon Dioxide 9 mmol/L (22-30)
[2016-11-19] MEDS ORDERED: INSULIN REGULAR BOLUS (FROM DRIP BAG) IV ONE (15:41)
[2016-11-19 16:01] LABS: Appearance,Urine Clear (Clear); Bilirubin,Urine Negative (Negative); Glucose,Urine (UA) 4+ (Negative); Leukocyte Esterase,Urine Negative (Negative); Nitrite,Urine Negative (Negative); PH, Urine 5.5 (5.0-8.0); Protein,Urine Negative (Negative); Specific Gravity,Urine 1.016 (1.001-1.035); UA Billing (MACRO vs. MICRO) CHEM; Urobilinogen,Urine <2.0 mg/dL (<2.0)
[2016-11-19] MEDS ORDERED: POLYETHYLENE GLYCOL 3350 17 GM POWD.PACK PO PRN (16:03)
[2016-11-19 16:12] LABS: Ketones,Urine 4+ (Negative)
[2016-11-19 16:31] LABS: Glucose,Whole Blood >600 mg/dL (75-99)
[2016-11-19 16:31] LABS: Glucose,Whole Blood 567 mg/dL (75-99)
[2016-11-19] MEDS: SODIUM CHLORIDE 0.9% 1,000 ML IV SCH ×3 (16:31→21:55)
[2016-11-19] MEDS: INSULIN REGULAR 100 UNIT in SODIUM CHLORIDE 0.9% 100 ML IV SCH ×2 (16:31→20:01)
[2016-11-19 17:10] LABS: Glucose,Whole Blood >600 mg/dL (75-99)
[2016-11-19 17:10] LABS: Glucose,Whole Blood >600 mg/dL (75-99)
[2016-11-19 17:10] LABS: Glucose,Whole Blood 587 mg/dL (75-99)
[2016-11-19] MEDS ORDERED: PANTOPRAZOLE 40 MG TABLET PO SCH (17:30)
[2016-11-19 17:59] LABS: Glucose,Whole Blood 524 mg/dL (75-99)
[2016-11-19] MEDS: hydrALAZINE HCL 20 MG/ML 1 ML VIAL IVP PRN ×2 (18:09→23:05)
[2016-11-19] MEDS: CALCIUM CARBONATE 500 MG CHEWABLE PO SCH (18:12)
[2016-11-19 18:59] LABS: Glucose,Whole Blood 383 mg/dL (75-99)
[2016-11-19] MEDS: SUCRALFATE 1 GM TAB PO SCH ×2 (19:04→20:03)
[2016-11-19] MEDS: ONDANSETRON 4 MG/2 ML VIAL IVP PRN (19:41)
[2016-11-19] MEDS ORDERED: INSULIN REGULAR 100 UNIT in SODIUM CHLORIDE 0.9% 100 ML IV SCH (20:00)
[2016-11-19] MEDS: amLODIPine 5 MG TAB PO SCH (20:02)
[2016-11-19] MEDS: PANTOPRAZOLE 40 MG/10 ML VIAL IVP SCH (20:02)
[2016-11-19] MEDS: METOPROLOL TARTRATE 25 MG TAB PO SCH (20:02)
[2016-11-19 20:03] LABS: Anion Gap 25 mmol/L; Blood Urea Nitrogen 17 mg/dL (9-20); Carbon Dioxide 18 mmol/L (22-30); Chloride 102 mmol/L (98-107); Glucose 366 mg/dL (74-99); Non-African American GFR(MDRD) >60 (>60 ml/min/1.73 sqM); Phosphorous 2.4 mg/dL (2.5-4.5); Potassium 4.7 mmol/L (3.5-5.1); Sodium 145 mmol/L (137-145)
[2016-11-19 20:03] LABS: Glucose,Whole Blood 292 mg/dL (75-99)
[2016-11-19] MEDS: traZODone HCL 100 MG TAB PO SCH (20:03)
[2016-11-19] MEDS ORDERED: Phosphorus Replacement Protoco 1 EACH MISC MISCELLANE PRN (20:38)
[2016-11-19 21:04] LABS: Glucose,Whole Blood 253 mg/dL (75-99)
[2016-11-19] MEDS: D5-0.45% NACL WITH KCL 20MEQ/L 1,000 ML IV SCH (21:05)
[2016-11-19] MEDS ORDERED: SODIUM PHOSPHATE 10 MMOL in SODIUM CHLORIDE 0.9% 250 ML IVPB ONE (21:30)
[2016-11-19] MEDS: METOCLOPRAMIDE 5 MG TAB PO SCH (21:56)
[2016-11-19 22:07] LABS: Glucose,Whole Blood 186 mg/dL (75-99)
[2016-11-19] MEDS: METOCLOPRAMIDE 5 MG/ML 2 ML VIAL IVP SCH (22:15)
[2016-11-19 23:06] LABS: Glucose,Whole Blood 185 mg/dL (75-99)
[2016-11-19] MEDS: ACETAMINOPHEN IV (For NPO) 1,000 MG in EMPTY BAG 1 BAG IVPB PRN (23:09)
[2016-11-20 00:03] LABS: Glucose,Whole Blood 173 mg/dL (75-99)
[2016-11-20 01:20] LABS: Glucose,Whole Blood 160 mg/dL (75-99)
[2016-11-20] MEDS: INSULIN REGULAR 100 UNIT in SODIUM CHLORIDE 0.9% 100 ML IV SCH ×4 (01:21→07:11)
[2016-11-20 01:50] LABS: Glucose,Whole Blood 118 mg/dL (75-99)
[2016-11-20 02:29] LABS: Anion Gap 11 mmol/L; Blood Urea Nitrogen 17 mg/dL (9-20); Carbon Dioxide 27 mmol/L (22-30); Chloride 106 mmol/L (98-107); Glucose 125 mg/dL (74-99); Non-African American GFR(MDRD) >60 (>60 ml/min/1.73 sqM); Phosphorous 1.4 mg/dL (2.5-4.5); Potassium 3.7 mmol/L (3.5-5.1); Sodium 144 mmol/L (137-145)
[2016-11-20 03:04] LABS: Glucose,Whole Blood 112 mg/dL (75-99)
[2016-11-20] MEDS: SODIUM CHLORIDE 0.9% 1,000 ML IV SCH ×3 (03:12→13:05)
[2016-11-20] MEDS: D5-0.45% NACL WITH KCL 20MEQ/L 1,000 ML IV SCH ×2 (03:41→10:48)
[2016-11-20 04:05] LABS: Glucose,Whole Blood 88 mg/dL (75-99)
[2016-11-20 04:38] LABS: Glucose,Whole Blood 89 mg/dL (75-99)
[2016-11-20] MEDS: GABAPENTIN 100 MG CAP PO SCH ×4 (04:39→21:37)
[2016-11-20 05:05] LABS: Glucose,Whole Blood 107 mg/dL (75-99)
[2016-11-20] MEDS ORDERED: Potassium Replacement Protocol 1 EACH MISC MISCELLANE PRN (05:50)
[2016-11-20 06:10] LABS: Glucose,Whole Blood 123 mg/dL (75-99)
[2016-11-20 06:20] LABS: Basophils % (A) 0 %; CH 31.5; CHCM 33.4; Eosinophils # (A) 0.1 k/uL (0-0.7); Eosinophils % (A) 1 %; HCT 35.8 % (39.0-53.0); HDW 2.55; HGB 12.2 gm/dL (13.0-17.5); Luc # (Auto) 0.12; Luc % (Auto) 1; Lymphocytes # (A) 1.1 k/uL (1.0-4.8); Lymphocytes % (A) 11 %; MCH 32.2 pg (25.0-35.0); Monocytes # (A) 0.4 k/uL (0-1.0); Monocytes % (A) 4 %; Neutrophils # (A) 8.2 k/uL (1.3-7.7); Neutrophils % (A) 83 %; RBC 3.78 m/uL (4.30-5.90); RDW 14.9 % (11.5-15.5); WBC 9.9 k/uL (3.8-10.6); WBC (Perox) 10.15
[2016-11-20 06:28] LABS: MCV 94.8 fL (80.0-100.0)
[2016-11-20 06:30] LABS: Anion Gap 10 mmol/L; Blood Urea Nitrogen 17 mg/dL (9-20); Calcium 8.5 mg/dL (8.4-10.2); Carbon Dioxide 27 mmol/L (22-30); Chloride 106 mmol/L (98-107); Glucose 134 mg/dL (74-99); Magnesium 1.7 mg/dL (1.6-2.3); Non-African American GFR(MDRD) >60 (>60 ml/min/1.73 sqM); Phosphorous 2.4 mg/dL (2.5-4.5); Potassium 4.3 mmol/L (3.5-5.1); Sodium 143 mmol/L (137-145)
[2016-11-20 07:09] LABS: Glucose,Whole Blood 152 mg/dL (75-99)
[2016-11-20] MEDS ORDERED: Magnesium Replacement Protocol 1 EACH MISC MISCELLANE PRN (07:19)
[2016-11-20] MEDS: MAGNESIUM SULFATE-D5W PMX 1 GM in DEXTROSE/WATER 1 100ML.BAG IVPB SCH ×2 (07:43→09:57)
[2016-11-20] MEDS: SUCRALFATE 1 GM TAB PO SCH ×4 (07:43→21:37)
[2016-11-20] MEDS: CALCIUM CARBONATE 500 MG CHEWABLE PO SCH ×3 (07:43→17:24)
[2016-11-20 07:52] LABS: Glucose,Whole Blood 130 mg/dL (75-99)
[2016-11-20] MEDS ORDERED: SODIUM PHOSPHATE 10 MMOL in SODIUM CHLORIDE 0.9% 250 ML IVPB ONE (08:00)
[2016-11-20] MEDS: ACETAMINOPHEN IV (For NPO) 1,000 MG in EMPTY BAG 1 BAG IVPB PRN (08:35)
[2016-11-20] MEDS: PANTOPRAZOLE 40 MG/10 ML VIAL IVP SCH (08:36)
[2016-11-20] MEDS: METOPROLOL TARTRATE 25 MG TAB PO SCH ×2 (08:37→21:38)
[2016-11-20] MEDS: METOCLOPRAMIDE 5 MG TAB PO SCH ×3 (08:37→21:37)
[2016-11-20] MEDS: METOCLOPRAMIDE 5 MG/ML 2 ML VIAL IVP SCH (08:37)
[2016-11-20] MEDS: amLODIPine 5 MG TAB PO SCH ×2 (08:38→21:38)
[2016-11-20] MEDS: THIAMINE 100 MG TAB PO SCH (08:38)
[2016-11-20 08:54] LABS: Glucose,Whole Blood 142 mg/dL (75-99)
[2016-11-20] MEDS ORDERED: amLODIPine 5 MG TAB PO SCH (09:00)
[2016-11-20 09:09] LABS: Hemoglobin A1C 11.2 % (4.2-6.1)
[2016-11-20 09:54] VITALS: BMI 22.3
[2016-11-20] MEDS: LISINOPRIL 10 MG TAB PO SCH (09:57)
[2016-11-20 10:12] LABS: Glucose,Whole Blood 152 mg/dL (75-99)
[2016-11-20] MEDS: INSULIN LISPRO (humaLOG) 300 UNIT/3 ML VIAL SQ SCH ×6 (10:13→21:35)
[2016-11-20 10:37] LABS: Potassium 4.1 mmol/L (3.5-5.1)
[2016-11-20] MEDS ORDERED: D5-0.45% NACL WITH KCL 20MEQ/L 1,000 ML IV SCH (10:47)
[2016-11-20] MEDS ORDERED: INSULIN DETEMIR 100 UNIT/ML 10 ML VIAL SQ STA (11:43)
[2016-11-20 11:52] LABS: Glucose,Whole Blood 182 mg/dL (75-99)
--- NOTE | 2016-11-20 12:56 | P.CNPUL ---
History of Present Illness Consult date: 11/20/16 Requesting physician: Saniya Lomas Reason for consult: other (Acute diabetic ketoacidosis, admitted to the intensive care unit.) Chief complaint: Nausea vomiting and weakness and abdominal pain History of present illness: This is a 56-year-old male with history of diabetes, recurrent episodes of diabetic ketoacidosis, patient is often in the hospital at least on the average of once or twice a month. Patient usually comes in with diabetic ketoacidosis, gets treated with a short. Of time, goes home, claims that he is very compliant with all his meds including insulin, but for some reason the patient goes into diabetic ketoacidosis frequently. His symptoms usually present with symptoms of nausea vomiting diarrhea, and some vague abdominal pain. This time he had similar symptoms of 1 day duration, patient did not improve in spite of using his insulin. Upon arrival his blood sugar was 366, he had anion gap of 25 , and he had positive ketones. Hence patient was readmitted this time to the ICU placed on the DKA protocol, and I saw him this morning were in his labs have corrected nicely his anion gap has resolved his renal functioning is normal his blood sugar is 125. Hence arrangements were made for the patient to be transferred out of the ICU to a regular medical floor and he'll be placed on the insulin protocol as per sliding scale. At the time of my evaluation, patient had no headache or blurred vision no dizziness, no nausea no vomiting no abdominal pain no melena no hematemesis is no dysuria and no frequency no urgency. Patient does have history of chronic pain syndrome. Review of Systems 14 point review of systems were obtained, please refer to pertinent positives and negatives in HPI. Past Medical History Past Medical History: Heart Failure, Diabetes Mellitus, Hypertension, Pneumonia , Renal Disease, Rheumatoid Arthritis (RA), Skin Disorder Additional Past Medical History / Comment(s): Pt recently admitted 10/20/16 sepsis 2ndary to R middle lobe pne, DKA and on 10/28/16 with hyperosmolar nonketotic acidosis/hyponatremia. Other hx: IDDM poorly controlled, DKAs, diabetic gastroparesis, bilateral feet/hands peripheral neuropathy, blood behind both eyes, peptic ulcer disease/duodenal ulcer/gastritis with erosions, previous hospitalization for pulmonary edema and bilateral pleural effusion and subsequent evaluation showed a preserved LV function with an ejection fraction of around 50%, CKD stage III, normocytic chronic anemia, rheumatoid arthritis, DJD, chronic back pain, osteoarthritis-generalized, eczema, psoriasis, ear infections, hx of narcotic abuse, cocaine abuse and alcohol abuse. History of Any Multi-Drug Resistant Organisms: MRSA Date of last positivie culture/infection: 02/25/08 MDRO Source:: Neck Past Surgical History: Adenoidectomy, Tonsillectomy Additional Past Surgical History / Comment(s): colonoscopy 2009, EGD, lt great toe amp, and part of 2nd toe. Past Anesthesia/Blood Transfusion Reactions: No Reported Reaction Past Psychological History: No Psychological Hx Reported Additional Psychological History / Comment(s): patient stateshe lives with roomates but is reluctant to answer any questions Smoking Status: Never smoker Past Alcohol Use History: Occasional Additional Past Alcohol Use History / Comment(s): weekly Past Drug Use History: Cocaine Additional Drug Use History / Comment(s): patient states he uses cocaine as long as his stomach isn't "burning like it is now" - Past Family History Father Family Medical History: Diabetes Mellitus, Hypertension Additional Family Medical History / Comment(s): father at the age of 82 yrs from diabetic complications. Mother Additional Family Medical History / Comment(s): pyschiatric issues. Mother is 78yrs old. Medications and Allergies Home Medications Medication Instructions Recorded Confirmed Type Metoprolol Tartrate [Lopressor] 25 mg PO BID 08/05/16 11/19/16 History traZODone HCL [Desyrel] 200 mg PO HS 08/05/16 11/19/16 History amLODIPine [Norvasc] 5 mg PO DAILY 10/06/16 11/19/16 History Lisinopril [Zestril] 10 mg PO DAILY 10/20/16 11/19/16 History INSULIN LISPRO (humaLOG) [humaLOG See Protocol SQ AC-TID 10/28/16 11/19/16 History (formulary)] Allergies Allergy/AdvReac Type Severity Reaction Status Date / Time No Known Allergies Allergy Verified 11/19/16 14:48 Physical Exam Vitals: Vital Signs Temp Pulse Pulse Pulse Resp BP BP 11/20/16 11:35 98.9 F 70 18 11/20/16 10:00 65 19 121/54 11/20/16 09:30 75 16 139/82 11/20/16 09:00 76 19 139/82 05 08:30 82 14 164/81 11/20/16 08:00 98.5 F 77 19 138/79 05 07:30 83 12 113/62 05 07:00 84 14 145/84 11/20/16 06:30 82 18 112/56 11/20/16 06:00 82 13 138/71 11/20/16 05:30 78 15 124/59 05 05:00 82 18 104/53 05 04:30 77 14 129/62 05 04:00 99.6 F 81 18 97/43 05 03:30 77 18 107/57 11/20/16 03:00 83 18 90/44 11/20/16 02:30 79 17 114/55 11/20/16 02:00 83 17 106/51 11/20/16 01:30 88 18 163/77 11/20/16 01:00 91 21 167/85 11/20/16 00:30 90 18 162/80 11/20/16 00:00 99.3 F 94 18 188/90 11/19/16 23:30 92 18 193/103 11/19/16 23:00 93 18 185/96 11/19/16 22:30 97 11 L 193/89 11/19/16 22:00 77 14 193/91 11/19/16 21:30 91 14 185/95 11/19/16 21:00 101 H 16 192/91 11/19/16 20:30 105 H 183/86 11/19/16 20:00 99.1 F 105 H 173/78 11/19/16 19:30 102 H 179/82 11/19/16 19:00 97 20 191/99 11/19/16 18:45 105 H 14 198/96 11/19/16 18:30 108 H 20 187/92 11/19/16 18:15 107 H 20 192/91 11/19/16 18:00 86 14 198/93 11/19/16 17:45 98.7 F 97 100 14 197/94 198/92 11/19/16 17:30 102 H 18 189/92 11/19/16 17:15 98 12 212/113 11/19/16 17:00 98.7 F 92 14 11/19/16 16:43 97.9 F 95 20 147/78 11/19/16 15:32 97.9 F 96 14 152/72 11/19/16 14:26 98.1 F 102 H 22 195/93 BP Pulse Ox 11/20/16 11:35 127/69 100 11/20/16 10:00 100 11/20/16 09:30 98 11/20/16 09:00 100 11/20/16 08:30 99 11/20/16 08:00 100 11/20/16 07:30 100 11/20/16 07:00 98 11/20/16 06:30 100 11/20/16 06:00 97 11/20/16 05:30 99 11/20/16 05:00 99 11/20/16 04:30 99 11/20/16 04:00 99 11/20/16 03:30 11/20/16 03:00 99 11/20/16 02:30 100 11/20/16 02:00 99 11/20/16 01:30 99 11/20/16 01:00 100 11/20/16 00:30 100 11/20/16 00:00 11/19/16 23:30 99 11/19/16 23:00 11/19/16 22:30 100 11/19/16 22:00 100 11/19/16 21:30 100 11/19/16 21:00 11/19/16 20:30 11/19/16 20:00 99 11/19/16 19:30 100 11/19/16 19:00 100 11/19/16 18:45 100 11/19/16 18:30 100 11/19/16 18:15 100 11/19/16 18:00 100 11/19/16 17:45 99 11/19/16 17:30 100 11/19/16 17:15 100 11/19/16 17:00 100 11/19/16 16:43 99 11/19/16 15:32 100 11/19/16 14:26 100 Intake and Output 11/19/16 11/20/16 11/20/16 22:59 06:59 14:59 Intake Total 8896.547 8594.173 1201.346 Output Total 203 180 625 Balance 7429.083 6241.173 576.346 Intake: IV 700 0 700 ACETAMINOPHEN IV (For NPO 100 ) 1,000 mg In Empty Bag 1 bag @ 400 mls/hr IVPB Q6HR PRN Rx#:[id number] D5-0.45% NaCl with KCl 150 20Meq/l 1,000 ml @ 150 mls/hr IV .Q6H40M JURGEN Rx# :[id number] Magnesium Sulfate-D5w Pmx 200 1 gm In Dextrose/Water 1 100ml.bag @ 100 mls/hr IVPB Q1H JURGEN Rx#: [id number] Sodium Chloride 0.9% 1, 700 0 000 ml @ 200 mls/hr IV . Q5H JURGEN Rx#:[id number] Sodium Phosphate 10 mmol 250 In Sodium Chloride 0.9% 250 ml @ 125 mls/hr IVPB ONCE ONE Rx#:[id number] Intake, IV Titration 544.911 8069.173 151.346 Amount ACETAMINOPHEN IV (For NPO 100 ) 1,000 mg In Empty Bag 1 bag @ 400 mls/hr IVPB Q6HR PRN Rx#:[id number] D5-0.45% NaCl with KCl 300 1200 150 20Meq/l 1,000 ml @ 150 mls/hr IV .Q6H40M JURGEN Rx# :[id number] Insulin Regular 100 unit 101.000 202 In Sodium Chloride 0.9% 100 ml @ 0.1 UNITS/KG/HR 6.87 mls/hr IV .[id number] JURGEN Rx#:[id number] Insulin Regular 100 unit 8.163 54.173 1.346 In Sodium Chloride 0.9% 100 ml @ 1 UNIT/HR 1.01 mls/hr IV .Q24H JURGEN Rx#: [id number] Sodium Phosphate 10 mmol 375 125 In Sodium Chloride 0.9% 250 ml @ 125 mls/hr IVPB ONCE ONE Rx#:[id number] Oral 350 Output: Urine 180 625 Urine/Stool Mix 1 Emesis 2 Oral Regurgitation 200 Other: Voiding Method Toilet Toilet # Voids 1 Weight 69.7 kg 68.6 kg 68.6 kg Patient Weight 11/21/16 06:59 Weight 68.6 kg Physical Exam: Revealed a 56-year-old male in no distress. HEENT:[Neck is supple.] [No neck masses.] [No thyromegaly.] [No JVD.] Chest: [Clear throughout, no crackles, no rhonchi, no wheezes.] Cardiac Exam: [Normal S1 and S2, no S3 gallop, no murmur.] Abdomen: [Soft, nontender, no megaly, no rebound, no guarding, normal bowel sounds.] Extremities: [No clubbing, no edema, no cyanosis.] Neurological Exam: [No focal neurologic deficit.] Results - Laboratory Findings CBC and BMP: 11/20/16 06:06 11/20/16 09:56 Abnormal lab findings: Abnormal Labs 11/19/16 11/19/16 11/19/16 14:55 14:55 14:55 RBC 4.28 L Hgb Hct MCV 102.9 H Neutrophils # Chloride 94 L Carbon Dioxide 9 L* Glucose 692 H* POC Glucose (mg/dL) Hemoglobin A1c Plasma Lactic Acid Eliazar 5.7 H* Phosphorus 5.4 H Alkaline Phosphatase 184 H Urine Glucose (UA) Urine Ketones 11/19/16 11/19/16 11/19/16 15:25 15:28 15:52 RBC Hgb Hct MCV Neutrophils # Chloride Carbon Dioxide Glucose POC Glucose (mg/dL) >600 H 558 H Hemoglobin A1c Plasma Lactic Acid Eliazar Phosphorus Alkaline Phosphatase Urine Glucose (UA) 4+ H Urine Ketones 4+ H 11/19/16 11/19/16 11/19/16 16:27 16:29 17:03 RBC Hgb Hct MCV Neutrophils # Chloride Carbon Dioxide Glucose POC Glucose (mg/dL) >600 H 567 H 587 H Hemoglobin A1c Plasma Lactic Acid Eliazar Phosphorus Alkaline Phosphatase Urine Glucose (UA) Urine Ketones 11/19/16 11/19/16 11/19/16 17:06 17:08 17:35 RBC Hgb Hct MCV Neutrophils # Chloride Carbon Dioxide Glucose 586 H* POC Glucose (mg/dL) >600 H >600 H Hemoglobin A1c Plasma Lactic Acid Eliazar Phosphorus Alkaline Phosphatase Urine Glucose (UA) Urine Ketones 11/19/16 11/19/16 11/19/16 17:57 18:58 19:30 RBC Hgb Hct MCV Neutrophils # Chloride Carbon Dioxide 18 L Glucose 366 H POC Glucose (mg/dL) 524 H 383 H Hemoglobin A1c Plasma Lactic Acid Eliazar Phosphorus 2.4 L Alkaline Phosphatase Urine Glucose (UA) Urine Ketones 11/19/16 11/19/16 11/19/16 19:30 20:01 21:03 RBC Hgb Hct MCV Neutrophils # Chloride Carbon Dioxide Glucose POC Glucose (mg/dL) 292 H 253 H Hemoglobin A1c Plasma Lactic Acid Eliazar 4.8 H* Phosphorus Alkaline Phosphatase Urine Glucose (UA) Urine Ketones 11/19/16 11/19/16 11/20/16 22:05 23:04 00:01 RBC Hgb Hct MCV Neutrophils # Chloride Carbon Dioxide Glucose POC Glucose (mg/dL) 186 H 185 H 173 H Hemoglobin A1c Plasma Lactic Acid Eliazar Phosphorus Alkaline Phosphatase Urine Glucose (UA) Urine Ketones 11/20/16 11/20/16 11/20/16 01:18 01:45 01:48 RBC Hgb Hct MCV Neutrophils # Chloride Carbon Dioxide Glucose 125 H POC Glucose (mg/dL) 160 H 118 H Hemoglobin A1c Plasma Lactic Acid Eliazar Phosphorus 1.4 L Alkaline Phosphatase Urine Glucose (UA) Urine Ketones 11/20/16 11/20/16 11/20/16 03:01 05:03 06:06 RBC Hgb Hct MCV Neutrophils # Chloride Carbon Dioxide Glucose POC Glucose (mg/dL) 112 H 107 H Hemoglobin A1c 11.2 H Plasma Lactic Acid Eliazar Phosphorus Alkaline Phosphatase Urine Glucose (UA) Urine Ketones 11/20/16 11/20/16 11/20/16 06:06 06:06 06:09 RBC 3.78 L Hgb 12.2 L Hct 35.8 L MCV Neutrophils # 8.2 H Chloride Carbon Dioxide Glucose 134 H POC Glucose (mg/dL) 123 H Hemoglobin A1c Plasma Lactic Acid Eliazar Phosphorus 2.4 L Alkaline Phosphatase Urine Glucose (UA) Urine Ketones 11/20/16 11/20/16 11/20/16 07:08 07:51 08:53 RBC Hgb Hct MCV Neutrophils # Chloride Carbon Dioxide Glucose POC Glucose (mg/dL) 152 H 130 H 142 H Hemoglobin A1c Plasma Lactic Acid Eliazar Phosphorus Alkaline Phosphatase Urine Glucose (UA) Urine Ketones 11/20/16 11/20/16 10:10 11:40 RBC Hgb Hct MCV Neutrophils # Chloride Carbon Dioxide Glucose POC Glucose (mg/dL) 152 H 182 H Hemoglobin A1c Plasma Lactic Acid Eliazar Phosphorus Alkaline Phosphatase Urine Glucose (UA) Urine Ketones Assessment and Plan Plan: Impression: 1 acute diabetic ketoacidosis, most likely secondary to noncompliance. 2 multiple comorbidities including insulin-dependent diabetes, hypertension, rheumatoid arthritis, history of right middle lobe pneumonia and sepsis, history of gastroparesis, history of diabetic neuropathy, history of peptic ulcer and duodenal ulcer disease, history of chronic kidney disease stage III, history of chronic anemia, history of rheumatoid arthritis, chronic back pain, psoriasis, and history of narcotic abuse including cocaine abuse and alcohol abuse. Recommendation: Patient is doing much better now, his insulin drip will be discontinued, IV fluids will remain, with transfer the patient out of the ICU placed on the insulin protocol, and will continue to follow on an as-needed basis. Time with Patient: Greater than 30
[2016-11-20] MEDS: MULTIVITAMINS, THERA 1 EACH TAB PO SCH (13:50)
[2016-11-20] MEDS: FOLIC ACID 1 MG TAB PO SCH (13:50)
[2016-11-20] MEDS ORDERED: LORazepam 0.5 MG TAB PO PRN (13:57)
[2016-11-20] MEDS: HEPARIN SODIUM,PORCINE 5,000 UNIT/ML 1 ML VIAL SQ SCH ×2 (15:09→21:35)
[2016-11-20] MEDS: ACETAMINOPHEN TAB 325 MG TAB PO PRN (15:09)
--- NOTE | 2016-11-20 16:13 | HP ---
HISTORY AND PHYSICAL Date of Service: 11/20/2016 CHIEF COMPLAINTS: Uncontrolled blood sugars as well as weakness and not feeling right. HISTORY OF PRESENT ILLNESS: This 56-year-old gentleman with a past medical history of multiple medical problems, including diabetes mellitus, type 2, history of CHF, history of chronic kidney disease, history of peripheral neuropathy, not being followed by any primary physician in the outpatient setting, was admitted to [facility] with complaints of not feeling well as well as some abdominal pain and weakness. The patient was evaluated and blood sugars were 366. The patient had features of diabetic ketoacidosis with serum acetones. The patient was admitted to ICU with DKA protocol. After DKA protocol, the patient is being closely monitored. There is no history of any fever, rigor or chills. No history of headache, loss of consciousness, seizures. PAST MEDICAL HISTORY: 1. History of diabetes mellitus, type 2. 2. History of CHF. 3. History of hypertension. 4. History of pneumonia. 5. Rheumatoid arthritis. 6. History of noncompliance. 7. History of adenoidectomy. HOME MEDICATIONS: 1. Miralax 17 grams daily p.r.n. 2. Humalog before meals t.i.d. 3. Tylenol 650 q.6 p.r.n. 4. Desyrel 200 mg p.o. at bedtime. 5. Norvasc 5 mg p.o. daily. 6. Vitamin B1 100 mg p.o. daily. 7. Carafate 1 gram p.o. . 8. Prilosec 20 mg before meals b.i.d. 9. Multivitamins 1 p.o. daily. 10. Lopressor 25 mg p.o. b.i.d. 11. Reglan 5 mg p.o. t.i.d. 12. Zestril 10 mg p.o. daily. 13. Levemir 15 units subcutaneously at bedtime. 14. Neurontin 100 mg p.o. t.i.d. 15. Folic acid 1 mg p.o. daily. 16. TUMS 500 mg p.o. t.i.d. ALLERGIES: NONE. FAMILY HISTORY: History of diabetes mellitus, hypertension in the family. SOCIAL HISTORY: History of alcohol. History of cocaine. REVIEW OF SYSTEMS: ENT: No diminished hearing. No diminished vision. CARDIOVASCULAR SYSTEM: No angina. RESPIRATORY SYSTEM: No cough, hemoptysis. GI: No nausea, vomiting. : No dysuria, retention. NERVOUS SYSTEM: No numbness, weakness. ALLERGY/IMMUNOLOGY: No asthma, fever. MUSCULOSKELETAL: As mentioned earlier. HEMATOLOGY/ONCOLOGY: No history of anemia. ENDOCRINE: As mentioned earlier. CONSTITUTIONAL: As mentioned earlier. DERMATOLOGIC: Negative. RHEUMATOLOGIC: Negative. PSYCHIATRY: As mentioned earlier. PHYSICAL EXAMINATION: Patient is alert and oriented x3. Pulse is 75, blood pressure 139/82, respirations 16, temperature 98.9, pulse ox 98% on room air. HEENT: Conjunctivae normal. Oral mucosa moist. NECK: No jugular venous congestion. No carotid bruit. No lymph node enlargement. CARDIAC: S1, S2 muffled. No S3. No S4. RESPIRATORY: Breath sounds diminished at the bases. A few rhonchi. No crackles. ABDOMEN: Soft. Mild diffuse discomfort on palpation. No guarding. No rigidity. No mass palpable. No hepatosplenomegaly. No ascites. LEGS: No edema. No swelling. NERVOUS SYSTEM: Higher functions as mentioned earlier. Moves all 4 limbs. No focal motor or sensory deficit. LYMPHATICS: No lymph node palpable in neck, axillae or groin. SKIN: No ulcer, rash or bleeding. LABS AT THIS TIME: WBC 9.9, hemoglobin 12.2. Glucose is 125. ASSESSMENT: 1. Diabetes mellitus, type 2, uncontrolled, with diabetic ketoacidosis, present on admission. 2. Increased plasma lactic acid secondary to diabetic ketoacidosis, improved. 3. Abdominal pain. 4. Increased MCV. 5. History of congestive heart failure with chronic diastolic dysfunction; ejection fraction 50%. 6. History of gastric and diabetic gastroparesis. 7. History of chronic kidney disease, stage III. 8. History of hypertension, essential. 9. History of pneumonia. 10. History of diabetic gastroparesis. 11. History of diabetic peripheral neuropathy. 12. History of peptic ulcer disease and duodenal ulcer and gastritis and erosion previously. 13. History of rheumatoid arthritis. 14. History of degenerative joint disease and chronic back pain. 15. History of eczema. 16. History of psoriasis. 17. History of narcotic abuse, cocaine abuse and alcohol abuse remotely. 18. History of MRSA. 19. FULL CODE. RECOMMENDATIONS AND DISCUSSION: In this 56-year-old gentleman who presented with multiple complex medical issues, we will monitor the patient closely, continue the current medications, continue with symptomatic treatment, continue with DKA protocol. When DKA is controlled, I would recommend resumption of the home medications. See orders for further details. Discussed with the patient, who understands and agrees. Problems were compliance were also discussed with the patient. Patient understands and agrees. Further recommendations to follow. MTDD
[2016-11-20 17:06] LABS: Glucose,Whole Blood 264 mg/dL (75-99)
[2016-11-20] MEDS: PANTOPRAZOLE 40 MG TABLET PO SCH (17:24)
[2016-11-20 18:34] LABS: Anion Gap 11 mmol/L; Blood Urea Nitrogen 15 mg/dL (9-20); Carbon Dioxide 24 mmol/L (22-30); Chloride 100 mmol/L (98-107); Non-African American GFR(MDRD) >60 (>60 ml/min/1.73 sqM); Phosphorous 1.8 mg/dL (2.5-4.5); Potassium 3.7 mmol/L (3.5-5.1); Sodium 135 mmol/L (137-145)
[2016-11-20 20:45] LABS: Glucose,Whole Blood 91 mg/dL (75-99)
[2016-11-20] MEDS ORDERED: INSULIN DETEMIR 100 UNIT/ML 10 ML VIAL SQ SCH (21:00)
[2016-11-20] MEDS ORDERED: TEMAZEPAM 15 MG CAP PO PRN (21:00)
[2016-11-20] MEDS: traZODone HCL 100 MG TAB PO SCH (21:38)
[2016-11-20 22:11] LABS: Glucose,Whole Blood 79 mg/dL (75-99)
[2016-11-20 23:22] VITALS: RESP 18
[2016-11-21] MEDS: ACETAMINOPHEN TAB 325 MG TAB PO PRN ×2 (03:49→16:16)
[2016-11-21 03:54] LABS: Glucose,Whole Blood 83 mg/dL (75-99)
[2016-11-21 07:19] LABS: Glucose,Whole Blood 148 mg/dL (75-99)
[2016-11-21 07:44] LABS: Basophils % (A) 0 %; CH 31.1; CHCM 32.2; Eosinophils # (A) 0.1 k/uL (0-0.7); Eosinophils % (A) 1 %; HCT 37.1 % (39.0-53.0); HDW 2.51; Luc # (Auto) 0.11; Luc % (Auto) 1; Lymphocytes % (A) 22 %; MCH 31.3 pg (25.0-35.0); MCHC 32.3 g/dL (31.0-37.0); Mean Platelet Volume 7.6; Monocytes # (A) 0.3 k/uL (0-1.0); Monocytes % (A) 3 %; Neutrophils # (A) 6.6 k/uL (1.3-7.7); Neutrophils % (A) 73 %; RBC 3.82 m/uL (4.30-5.90); RDW 14.9 % (11.5-15.5); WBC 9.1 k/uL (3.8-10.6); WBC (Perox) 8.93
[2016-11-21] MEDS: ONDANSETRON 4 MG/2 ML VIAL IVP PRN ×2 (07:48→14:27)
[2016-11-21] MEDS: SUCRALFATE 1 GM TAB PO SCH ×2 (07:50→14:02)
[2016-11-21] MEDS: PANTOPRAZOLE 40 MG TABLET PO SCH (07:50)
[2016-11-21] MEDS: INSULIN LISPRO (humaLOG) 300 UNIT/3 ML VIAL SQ SCH ×4 (07:58→14:04)
[2016-11-21 08:05] LABS: Anion Gap 9 mmol/L; Blood Urea Nitrogen 15 mg/dL (9-20); Calcium 8.6 mg/dL (8.4-10.2); Carbon Dioxide 24 mmol/L (22-30); Chloride 103 mmol/L (98-107); Glucose 167 mg/dL (74-99); Magnesium 2.1 mg/dL (1.6-2.3); Non-African American GFR(MDRD) >60 (>60 ml/min/1.73 sqM); Phosphorous 2.9 mg/dL (2.5-4.5); Potassium 3.8 mmol/L (3.5-5.1); Sodium 136 mmol/L (137-145)
[2016-11-21] MEDS: GABAPENTIN 100 MG CAP PO SCH ×2 (10:15→15:13)
[2016-11-21] MEDS: MULTIVITAMINS, THERA 1 EACH TAB PO SCH ×2 (10:15→10:24)
[2016-11-21] MEDS: METOPROLOL TARTRATE 25 MG TAB PO SCH (10:15)
[2016-11-21] MEDS: LISINOPRIL 10 MG TAB PO SCH (10:16)
[2016-11-21] MEDS: CALCIUM CARBONATE 500 MG CHEWABLE PO SCH ×3 (10:16→16:14)
[2016-11-21] MEDS: METOCLOPRAMIDE 5 MG TAB PO SCH ×2 (10:17→15:13)
[2016-11-21] MEDS: amLODIPine 5 MG TAB PO SCH (10:17)
[2016-11-21] MEDS: HEPARIN SODIUM,PORCINE 5,000 UNIT/ML 1 ML VIAL SQ SCH (10:17)
[2016-11-21] MEDS: THIAMINE 100 MG TAB PO SCH ×2 (10:18→10:24)
[2016-11-21] MEDS: FOLIC ACID 1 MG TAB PO SCH ×2 (10:18→10:24)
[2016-11-21 10:38] LABS: Glucose,Whole Blood 159 mg/dL (75-99)
[2016-11-21 12:38] LABS: Glucose,Whole Blood 266 mg/dL (75-99)
[2016-11-21 14:01] LABS: Glucose,Whole Blood 339 mg/dL (75-99)
[2016-11-21 15:43] LABS: Glucose,Whole Blood 257 mg/dL (75-99)
[2016-11-21 16:13] VITALS: BP 147/81; PULSE 67; TEMP 98.9
--- NOTE | 2016-11-23 14:32 | DS ---
FINAL DIAGNOSES: 1. Diabetes mellitus type 2, uncontrolled, with diabetic ketoacidosis present on admission. 2. ( ) secondary to diabetic ketoacidosis, improved. 3. Abdominal pain. 4. Increased MCV. 5. History of congestive heart failure. 6. History of diabetic gastroparesis. 7. History of multiple complex medical issues. DISCHARGE DISPOSITION: The patient is discharged in stable condition with guarded prognosis. HISTORY OF PRESENT ILLNESS: This 53-year-old gentleman admitted with diabetes mellitus type 2 uncontrolled and diabetic ketoacidosis. The patient was treated symptomatically and improved significantly. On exam, vitals are stable. CARDIOVASCULAR: S1, S2. ABDOMEN: Soft. NERVOUS SYSTEM: No focal deficits. Patient has history of noncompliance. home health care worker and urban and regional planner plan to address those issues. DISCHARGE ADVICE AND MEDICATIONS: 1. Diet is cardiac. 2. Activity limited until follow up. 3. Accu-Cheks a.c. and at bedtime, results to primary physician. 4. Medications: Tylenol 650 q.6 p.r.n. 5. Norvasc 5 mg daily. 6. TUMS 500 mg t.i.d. p.r.n. 7. Folic acid 1 mg. 8. Neurontin 100 mg t.i.d. 9. Levemir 15 subcu q.h.s. 10. Humalog protocol. 11. ( ) 5 units a.c. t.i.d. 12. Zestril 10 mg p.o. daily. 13. Hold Humalog if Accu-Cheks less than 120. 14. Ativan 0.5 mg q.8 p.o. p.r.n. 15. Reglan 5 mg p.o. t.i.d. 16. Lopressor 15 mg p.o. b.i.d. 17. Multivitamins 1 p.o. daily. 18. Prilosec 20 mg p.o. b.i.d. 19. Protonix 40 mg b.i.d. 20. MiraLAX 17 grams daily. 21. Carafate 1 gram p.o. q.h.s. 22. Vitamin B 100 mg p.o. daily. 23. Desyrel 200 mg q.h.s. MTDD
== END 2016-11-21 16:36 | disposition home or self-care (01) | DRG 638 ==
LOC: EC 13:54 → 6ICU 15:51 → 4MS4W 11-20 11:37
PROVIDERS: ADMIT Internal Medicine; ATTEND Internal Medicine
DX: E13.10 Other specified diabetes mellitus with ketoacidosis without coma (principal); I13.0 Hypertensive heart and chronic kidney disease with heart failure and stage 1 through stage 4 chronic kidney disease, or unspecified chronic kidney disease; I50.32 Chronic diastolic (congestive) heart failure; N18.3 Chronic kidney disease, stage 3 (moderate); K31.84 Gastroparesis; E11.22 Type 2 diabetes mellitus with diabetic chronic kidney disease; E11.42 Type 2 diabetes mellitus with diabetic polyneuropathy; D64.9 Anemia, unspecified; L30.9 Dermatitis, unspecified; L40.9 Psoriasis, unspecified; G89.4 Chronic pain syndrome; M06.9 Rheumatoid arthritis, unspecified; E11.43 Type 2 diabetes mellitus with diabetic autonomic (poly)neuropathy; Z83.3 Family history of diabetes mellitus; Z91.19 Patient's noncompliance with other medical treatment and regimen; Z87.898 Personal history of other specified conditions; Z87.11 Personal history of peptic ulcer disease; Z87.01 Personal history of pneumonia (recurrent); Z86.14 Personal history of Methicillin resistant Staphylococcus aureus infection; Z79.4 Long term (current) use of insulin; Z79.899 Other long term (current) drug therapy
CPT/HCPCS: 36415; 80048; 80051; 80053; 81003; 82009; 82150; 82565; 82947; 83036; 83605; 83690; 83735; 84100; 84520; 85025; 93005

== ENCOUNTER 2016-11-27 17:13 | Observation (INO) | payer OTHER ==
[2016-11-27] MEDS ORDERED: SODIUM CHLORIDE 0.9% 2,000 ML IV STA (17:17)
[2016-11-27 17:21] LABS: Glucose,Whole Blood >600 mg/dL (75-99)
--- NOTE | 2016-11-27 17:58 | ED ---
General Adult HPI - General Stated complaint: Diabetic Time Seen by Provider: 11/27/16 17:16 Source: patient, EMS, RN notes reviewed Mode of arrival: EMS Limitations: no limitations - History of Present Illness Initial comments: 56 yo male presents to the ER with cc of hyperglycemia. Patient has a history of diabetes. Patient states he started nausea vomiting today he noticed that he was reading high and a monitor. Patient states last time he took insulin was yesterday. Patient states he has been throwing up. Patient states he is having some abdominal pain which is typical of his hyperglycemia. Patient states that he was concerned due to his symptoms he thought that he should be evaluated. Patient denies any recent fever, chills, shortness of breath, chest pain, back pain, numbness or tingling, dysuria or hematuria, constipation or diarrhea, headaches or visual changes, or any other current symptoms. - Related Data Home Medications Medication Instructions Recorded Confirmed Metoprolol Tartrate [Lopressor] 25 mg PO BID 08/05/16 11/27/16 traZODone HCL [Desyrel] 200 mg PO HS 08/05/16 11/27/16 amLODIPine [Norvasc] 5 mg PO DAILY 10/06/16 11/27/16 Lisinopril [Zestril] 10 mg PO DAILY 10/20/16 11/27/16 INSULIN LISPRO (humaLOG) [humaLOG See Protocol SQ AC-TID 10/28/16 11/27/16 (formulary)] Previous Rx's Medication Instructions Recorded Folic Acid 1 mg PO DAILY #30 tablet 07/16/16 Multivitamins, Thera [Multivitamin 1 tab PO DAILY #30 tablet 07/16/16 (formulary)] Thiamine [Vitamin B-1] 100 mg PO DAILY #30 tablet 07/16/16 Polyethylene Glycol 3350 [Miralax] 17 gm PO DAILY PRN #30 packet 07/25/16 Calcium Carbonate [Tums] 500 mg PO TID #1 chew 09/02/16 Gabapentin [Neurontin] 100 mg PO TID #60 cap 09/02/16 Metoclopramide HCl [Reglan] 5 mg PO TID #30 tablet 10/07/16 Sucralfate [Carafate] 1 gm PO ACHS #120 tablet 10/12/16 Insulin Detemir [Levemir] 15 unit SQ HS #0 vial 10/29/16 Omeprazole [PriLOSEC] 20 mg PO AC-BID #60 cap 10/29/16 Acetaminophen Tab [Tylenol] 650 mg PO Q6HR PRN tab 11/12/16 INSULIN LISPRO (humaLOG) [humaLOG 5 unit SQ AC-TID #1 vial 11/21/16 (formulary)] LORazepam [Ativan] 0.5 mg PO Q8HR PRN #10 tab 11/21/16 Pantoprazole [Protonix] 40 mg PO AC-BID #60 tab 11/21/16 Allergies Allergy/AdvReac Type Severity Reaction Status Date / Time No Known Allergies Allergy Verified 11/19/16 14:48 Review of Systems ROS Statement: Those systems with pertinent positive or pertinent negative responses have been documented in the HPI. ROS Other: All systems not noted in ROS Statement are negative. Past Medical History Past Medical History: Heart Failure, Diabetes Mellitus, Hypertension, Pneumonia , Renal Disease, Rheumatoid Arthritis (RA), Skin Disorder Additional Past Medical History / Comment(s): Pt recently admitted 10/20/16 sepsis 2ndary to R middle lobe pne, DKA and on 10/28/16 with hyperosmolar nonketotic acidosis/hyponatremia. Other hx: IDDM poorly controlled, DKAs, diabetic gastroparesis, bilateral feet/hands peripheral neuropathy, blood behind both eyes, peptic ulcer disease/duodenal ulcer/gastritis with erosions, previous hospitalization for pulmonary edema and bilateral pleural effusion and subsequent evaluation showed a preserved LV function with an ejection fraction of around 50%, CKD stage III, normocytic chronic anemia, rheumatoid arthritis, DJD, chronic back pain, osteoarthritis-generalized, eczema, psoriasis, ear infections, hx of narcotic abuse, cocaine abuse and alcohol abuse. History of Any Multi-Drug Resistant Organisms: MRSA Date of last positivie culture/infection: 02/25/08 MDRO Source:: Neck Past Surgical History: Adenoidectomy, Tonsillectomy Additional Past Surgical History / Comment(s): colonoscopy 2008, EGD, lt great toe amp, and part of 2nd toe. Past Anesthesia/Blood Transfusion Reactions: No Reported Reaction Past Psychological History: No Psychological Hx Reported Smoking Status: Never smoker Past Alcohol Use History: Occasional Past Drug Use History: Cocaine - Past Family History Father Family Medical History: Diabetes Mellitus, Hypertension Additional Family Medical History / Comment(s): father at the age of 82 yrs from diabetic complications. Mother Additional Family Medical History / Comment(s): pyschiatric issues. Mother is 78yrs old. General Exam - General Exam Comments Initial Comments: General: The patient is awake and alert, in no distress, and does not appear acutely ill. Eye: Pupils are equal, round and reactive to light, extra-ocular movements are intact; there is normal conjunctiva bilaterally. No signs of icterus. Ears, nose, mouth and throat: There are moist mucous membranes and no oral lesions. Neck: The neck is supple, there is no tenderness. Cardiovascular: There is a regular rate and rhythm. No murmur, rub or gallop is appreciated. Respiratory: Lungs are clear to auscultation, respirations are non-labored, breath sounds are equal. No wheezes, stridor, rales, or rhonchi. Gastrointestinal: Soft, non-distended, non-tender abdomen without masses or organomegaly noted. There is no rebound or guarding present. No CVA tenderness. Bowel sounds are unremarkable. Back: There is no tenderness to palpation in the midline. There is no obvious deformity. No rashes noted. Musculoskeletal: Normal ROM, no tenderness, There is no pedal edema. There is no calf tenderness or swelling. Sensation intact. Pulses equal bilaterally 2+. Neurological: CN II-XII intact, There are no obvious motor or sensory deficits. Coordination appears grossly intact. Speech is normal. Skin: Skin is warm and dry and no rashes or lesions are noted. Psychiatric: Cooperative, appropriate mood & affect, normal judgment. Limitations: no limitations Course Vital Signs 11/27/16 11/27/16 17:16 18:29 Temperature 99.5 F 98.4 F Pulse Rate 107 H 121 H Respiratory 18 22 Rate Blood Pressure 162/67 137/60 O2 Sat by Pulse 100 99 Oximetry Medical Decision Making - Medical Decision Making 56-year-old male presents emergency Department with a chief complaint of hyperglycemia. At this time patient is found to be in DKA. This time patient did receive 2 L of fluid. We started an insulin drip and the patient will be admitted the hospital for continued care. Patient is in agreement the plan. Dr. Callahan spoke with Dr. Balderas who does agree with this admission. - Lab Data Result diagrams: 11/27/16 17:45 11/27/16 17:45 Lab Results 11/27/16 11/27/16 11/27/16 Range/Units 17:19 17:45 17:45 WBC 10.0 (3.8-10.6) k/uL RBC 3.90 L (4.30-5.90) m/uL Hgb 12.5 L (13.0-17.5) gm/dL Hct 39.8 (39.0-53.0) % MCV 102.2 H D (80.0-100.0) fL MCH 32.0 (25.0-35.0) pg MCHC 31.3 (31.0-37.0) g/dL RDW 14.7 (11.5-15.5) % Plt Count 312 (150-450) k/uL Neutrophils % 80 % Lymphocytes % 14 % Monocytes % 5 % Eosinophils % 0 % Basophils % 0 % Neutrophils # 8.0 H (1.3-7.7) k/uL Lymphocytes # 1.4 (1.0-4.8) k/uL Monocytes # 0.5 (0-1.0) k/uL Eosinophils # 0.0 (0-0.7) k/uL Basophils # 0.0 (0-0.2) k/uL Hypochromasia Marked Macrocytosis Slight PT (9.0-12.0) sec INR (<1.1) APTT (22.0-30.0) sec Sodium 134 L (137-145) mmol/L Potassium 4.9 (3.5-5.1) mmol/L Chloride 91 L (98-107) mmol/L Carbon Dioxide 7 L* (22-30) mmol/L Anion Gap 36 mmol/L BUN 18 (9-20) mg/dL Creatinine 1.30 H (0.66-1.25) mg/dL Est GFR (MDRD) Af Amer >60 (>60 ml/min/1.73 sqM) Est GFR (MDRD) Non-Af 57 (>60 ml/min/1.73 sqM) Glucose 687 H* (74-99) mg/dL POC Glucose (mg/dL) >600 H (75-99) mg/dL POC Glu Engraver Tender ID Myranda Azar Plasma Lactic Acid Eliazar (0.7-2.0) mmol/L Calcium 9.6 (8.4-10.2) mg/dL Magnesium 1.8 (1.6-2.3) mg/dL Total Bilirubin 0.7 (0.2-1.3) mg/dL AST 30 (17-59) U/L ALT 42 (21-72) U/L Alkaline Phosphatase 162 H (38-126) U/L Total Protein 6.4 (6.3-8.2) g/dL Albumin 4.1 (3.5-5.0) g/dL Amylase 92 (30-110) U/L Lipase 27 (23-300) U/L Acetone, Qual Positive (Negative) 11/27/16 11/27/16 Range/Units 17:45 17:45 WBC (3.8-10.6) k/uL RBC (4.30-5.90) m/uL Hgb (13.0-17.5) gm/dL Hct (39.0-53.0) % MCV (80.0-100.0) fL MCH (25.0-35.0) pg MCHC (31.0-37.0) g/dL RDW (11.5-15.5) % Plt Count (150-450) k/uL Neutrophils % % Lymphocytes % % Monocytes % % Eosinophils % % Basophils % % Neutrophils # (1.3-7.7) k/uL Lymphocytes # (1.0-4.8) k/uL Monocytes # (0-1.0) k/uL Eosinophils # (0-0.7) k/uL Basophils # (0-0.2) k/uL Hypochromasia Macrocytosis PT 11.2 (9.0-12.0) sec INR 1.1 (<1.1) APTT 20.6 L (22.0-30.0) sec Sodium (137-145) mmol/L Potassium (3.5-5.1) mmol/L Chloride (98-107) mmol/L Carbon Dioxide (22-30) mmol/L Anion Gap mmol/L BUN (9-20) mg/dL Creatinine (0.66-1.25) mg/dL Est GFR (MDRD) Af Amer (>60 ml/min/1.73 sqM) Est GFR (MDRD) Non-Af (>60 ml/min/1.73 sqM) Glucose (74-99) mg/dL POC Glucose (mg/dL) (75-99) mg/dL POC Glu Engraver Tender ID Plasma Lactic Acid Eliazar 6.3 H* (0.7-2.0) mmol/L Calcium (8.4-10.2) mg/dL Magnesium (1.6-2.3) mg/dL Total Bilirubin (0.2-1.3) mg/dL AST (17-59) U/L ALT (21-72) U/L Alkaline Phosphatase (38-126) U/L Total Protein (6.3-8.2) g/dL Albumin (3.5-5.0) g/dL Amylase (30-110) U/L Lipase (23-300) U/L Acetone, Qual (Negative) Disposition Clinical Impression: Vomiting, DKA (diabetic ketoacidoses), Acute renal failure, Acute hyperkalemia , Dehydration Disposition: ADMITTED IP TO THIS [facility] Condition: Stable Referrals: Sofia Emanuel MD [Primary Care Provider] - 1-2 days Time of Disposition: 18:51 Decision Date: 11/27/16 Decision Time: 18:51
[2016-11-27 18:01] LABS: Basophils % (A) 0 %; CH 30.7; CHCM 30.2; Eosinophils % (A) 0 %; HCT 39.8 % (39.0-53.0); HDW 2.72; HGB 12.5 gm/dL (13.0-17.5); Hypochromasia Marked; Luc # (Auto) 0.11; Luc % (Auto) 1; Lymphocytes # (A) 1.4 k/uL (1.0-4.8); Lymphocytes % (A) 14 %; MCHC 31.3 g/dL (31.0-37.0); Macrocytosis Slight; Mean Platelet Volume 8.1; Monocytes # (A) 0.5 k/uL (0-1.0); Monocytes % (A) 5 %; Neutrophils % (A) 80 %; RDW 14.7 % (11.5-15.5); WBC (Perox) 9.73
[2016-11-27 18:14] LABS: INR 1.1 (<1.1); MCV 102.2 fL (80.0-100.0); Prothrombin Time 11.2 sec (9.0-12.0)
[2016-11-27 18:15] LABS: ALT 42 U/L (21-72); AST 30 U/L (17-59); Alkaline Phosphatase 162 U/L (38-126); Amylase 92 U/L (30-110); Blood Urea Nitrogen 18 mg/dL (9-20); Calcium 9.6 mg/dL (8.4-10.2); Chloride 91 mmol/L (98-107); Magnesium 1.8 mg/dL (1.6-2.3); Non-African American GFR(MDRD) 57 (>60 ml/min/1.73 sqM); Potassium 4.9 mmol/L (3.5-5.1); Sodium 134 mmol/L (137-145); Total Bilirubin 0.7 mg/dL (0.2-1.3); Total Protein 6.4 g/dL (6.3-8.2)
[2016-11-27 18:24] LABS: Anion Gap 36 mmol/L
[2016-11-27 18:27] LABS: Carbon Dioxide 7 mmol/L (22-30); Glucose 687 mg/dL (74-99)
[2016-11-27] MEDS ORDERED: INSULIN REGULAR BOLUS (FROM DRIP BAG) IV ONE (18:29)
[2016-11-27 18:31] LABS: Partial Thromboplastin Time 20.6 sec (22.0-30.0)
[2016-11-27] MEDS ORDERED: INSULIN REGULAR 100 UNIT in SODIUM CHLORIDE 0.9% 100 ML IV SCH ×2 (18:45→21:30)
[2016-11-27] MEDS ORDERED: POLYETHYLENE GLYCOL 3350 17 GM POWD.PACK PO PRN (18:52)
[2016-11-27] MEDS ORDERED: LORazepam 0.5 MG TAB PO PRN (18:52)
[2016-11-27 19:05] LABS: Glucose,Whole Blood >600 mg/dL (75-99)
[2016-11-27 19:30] VITALS: RESP 16
[2016-11-27 19:32] LABS: Appearance,Urine Clear (Clear); Bilirubin,Urine Negative (Negative); Glucose,Urine (UA) 4+ (Negative); Leukocyte Esterase,Urine Negative (Negative); Nitrite,Urine Negative (Negative); Protein,Urine Negative (Negative); Specific Gravity,Urine 1.017 (1.001-1.035); UA Billing (MACRO vs. MICRO) CHEM; Urobilinogen,Urine <2.0 mg/dL (<2.0)
[2016-11-27 19:45] LABS: Glucose,Whole Blood >600 mg/dL (75-99)
[2016-11-27 20:03] LABS: Ketones,Urine 4+ (Negative)
[2016-11-27 20:10] LABS: Glucose,Whole Blood >600 mg/dL (75-99)
[2016-11-27 20:40] LABS: Glucose,Whole Blood >600 mg/dL (75-99)
[2016-11-27] MEDS ORDERED: traZODone HCL 100 MG TAB PO SCH (21:00)
[2016-11-27] MEDS ORDERED: METOPROLOL TARTRATE 25 MG TAB PO SCH (21:00)
[2016-11-27 21:08] LABS: Glucose,Whole Blood 538 mg/dL (75-99)
[2016-11-27] MEDS ORDERED: Magnesium Replacement Protocol 1 EACH MISC MISCELLANE PRN (21:24)
[2016-11-27] MEDS ORDERED: Potassium Replacement Protocol 1 EACH MISC MISCELLANE PRN (21:24)
[2016-11-27] MEDS ORDERED: LABETALOL 5 MG/ML VIAL MDV IVP STA (21:26)
[2016-11-27 21:27] LABS: Anion Gap 30 mmol/L; Blood Urea Nitrogen 20 mg/dL (9-20); Carbon Dioxide 10 mmol/L (22-30); Chloride 99 mmol/L (98-107); Glucose 535 mg/dL (74-99); Non-African American GFR(MDRD) 57 (>60 ml/min/1.73 sqM); Phosphorous 3.4 mg/dL (2.5-4.5); Potassium 4.7 mmol/L (3.5-5.1); Sodium 139 mmol/L (137-145)
[2016-11-27] MEDS: METOCLOPRAMIDE 5 MG TAB PO SCH (21:31)
[2016-11-27] MEDS: SUCRALFATE 1 GM TAB PO SCH (21:32)
[2016-11-27] MEDS: MORPHINE SULFATE 2 MG/ML SYRINGE IVP PRN (21:35)
[2016-11-27] MEDS: ONDANSETRON 4 MG/2 ML VIAL IVP PRN (21:35)
[2016-11-27] MEDS: SODIUM CHLORIDE 0.9% 1,000 ML IV SCH ×2 (21:42→21:56)
[2016-11-27] MEDS: CALCIUM CARBONATE 500 MG CHEWABLE PO SCH (21:45)
[2016-11-27] MEDS: GABAPENTIN 100 MG CAP PO SCH (21:45)
[2016-11-27] MEDS: PANTOPRAZOLE 40 MG/10 ML VIAL IVP SCH (21:54)
[2016-11-27] MEDS ORDERED: cloNIDine 0.1 MG/24HR PATCH 1 PATCH PATCH TRANSDERM SCH (22:00)
[2016-11-27 22:17] LABS: Glucose,Whole Blood 424 mg/dL (75-99)
[2016-11-27 23:24] LABS: Glucose,Whole Blood 284 mg/dL (75-99)
[2016-11-28 00:08] LABS: Glucose,Whole Blood 278 mg/dL (75-99)
[2016-11-28] MEDS: D5-0.45% NACL WITH KCL 20MEQ/L 1,000 ML IV SCH ×2 (00:17→07:02)
[2016-11-28 00:52] LABS: Anion Gap 19 mmol/L; Blood Urea Nitrogen 18 mg/dL (9-20); Carbon Dioxide 20 mmol/L (22-30); Chloride 103 mmol/L (98-107); Glucose 248 mg/dL (74-99); Non-African American GFR(MDRD) >60 (>60 ml/min/1.73 sqM); Phosphorous 2.2 mg/dL (2.5-4.5); Potassium 3.8 mmol/L (3.5-5.1); Sodium 142 mmol/L (137-145)
[2016-11-28 01:06] LABS: Glucose,Whole Blood 221 mg/dL (75-99)
[2016-11-28 02:06] LABS: Glucose,Whole Blood 180 mg/dL (75-99)
[2016-11-28 03:11] LABS: Glucose,Whole Blood 172 mg/dL (75-99)
[2016-11-28 03:59] LABS: Glucose,Whole Blood 127 mg/dL (75-99)
[2016-11-28] MEDS: MORPHINE SULFATE 2 MG/ML SYRINGE IVP PRN ×2 (04:53→10:58)
[2016-11-28 05:05] LABS: Glucose,Whole Blood 116 mg/dL (75-99)
[2016-11-28 06:04] LABS: Glucose,Whole Blood 112 mg/dL (75-99)
[2016-11-28] MEDS: SUCRALFATE 1 GM TAB PO SCH ×3 (06:22→18:06)
[2016-11-28] MEDS: CALCIUM CARBONATE 500 MG CHEWABLE PO SCH ×3 (06:22→17:19)
[2016-11-28] MEDS: ONDANSETRON 4 MG/2 ML VIAL IVP PRN (06:45)
[2016-11-28 07:09] LABS: Anion Gap 10 mmol/L; Calcium 8.9 mg/dL (8.4-10.2); Carbon Dioxide 21 mmol/L (22-30); Chloride 107 mmol/L (98-107); Glucose 96 mg/dL (74-99); Non-African American GFR(MDRD) >60 (>60 ml/min/1.73 sqM); Sodium 138 mmol/L (137-145)
[2016-11-28 07:10] LABS: Glucose,Whole Blood 100 mg/dL (75-99)
[2016-11-28 07:13] LABS: Blood Urea Nitrogen 18 mg/dL (9-20); Potassium 5.6 mmol/L (3.5-5.1)
[2016-11-28] MEDS ORDERED: PANTOPRAZOLE 40 MG TABLET PO SCH (07:30)
[2016-11-28 07:34] LABS: Glucose,Whole Blood 103 mg/dL (75-99)
[2016-11-28 08:53] LABS: Glucose,Whole Blood 134 mg/dL (75-99)
[2016-11-28] MEDS ORDERED: LISINOPRIL 10 MG TAB PO SCH (09:00)
[2016-11-28] MEDS ORDERED: amLODIPine 5 MG TAB PO SCH (09:00)
[2016-11-28 09:19] LABS: Basophils % (A) 0 %; CH 31.5; CHCM 33.5; Eosinophils % (A) 0 %; HCT 39.5 % (39.0-53.0); HDW 2.61; HGB 13.4 gm/dL (13.0-17.5); Luc # (Auto) 0.29; Luc % (Auto) 3; Lymphocytes # (A) 1.9 k/uL (1.0-4.8); Lymphocytes % (A) 17 %; MCH 32.1 pg (25.0-35.0); Monocytes % (A) 9 %; Neutrophils # (A) 7.6 k/uL (1.3-7.7); Neutrophils % (A) 70 %; RBC 4.18 m/uL (4.30-5.90); WBC 10.9 k/uL (3.8-10.6); WBC (Perox) 10.93
[2016-11-28 09:38] LABS: MCV 94.5 fL (80.0-100.0)
[2016-11-28 09:47] VITALS: BMI 21.8
[2016-11-28 10:04] LABS: Glucose,Whole Blood 172 mg/dL (75-99)
[2016-11-28] MEDS ORDERED: INSULIN NPH 300 UNIT/3 ML VIAL SQ ONE (10:07)
[2016-11-28] MEDS ORDERED: INSULIN GLARGINE 100 UNIT/ML 10 ML VIAL SQ SCH (10:15)
[2016-11-28] MEDS: PANTOPRAZOLE 40 MG/10 ML VIAL IVP SCH (10:54)
[2016-11-28] MEDS: GABAPENTIN 100 MG CAP PO SCH ×2 (10:55→17:19)
[2016-11-28] MEDS: METOCLOPRAMIDE 5 MG TAB PO SCH ×2 (10:55→17:18)
[2016-11-28] MEDS ORDERED: D5-0.45% NACL WITH KCL 20MEQ/L 1,000 ML IV SCH (11:15)
[2016-11-28] MEDS: INSULIN LISPRO (humaLOG) 300 UNIT/3 ML VIAL SQ SCH ×4 (11:30→18:06)
[2016-11-28] MEDS ORDERED: THIAMINE 100 MG TAB PO SCH (12:00)
[2016-11-28] MEDS ORDERED: FOLIC ACID 1 MG TAB PO SCH (12:00)
[2016-11-28] MEDS ORDERED: MULTIVITAMINS, THERA 1 EACH TAB PO SCH (12:00)
[2016-11-28 12:05] LABS: Glucose,Whole Blood 169 mg/dL (75-99)
[2016-11-28 12:10] VITALS: TEMP 96.8
[2016-11-28 12:19] LABS: Glucose,Whole Blood 174 mg/dL (75-99)
[2016-11-28 13:26] LABS: Hemoglobin A1C 11.3 % (4.2-6.1)
[2016-11-28 15:41] VITALS: BP 161/90; PULSE 93
--- NOTE | 2016-11-28 16:30 | P.HPIM ---
History of Present Illness H&P Date: 11/28/16 (Discharge summary) Chief Complaint: Nausea This is a 56-year-old gentleman who is admitted to the hospital multiple times over the last few months with diabetic ketoacidosis comes in the hospital with complains of nausea and intractable vomiting Patient was noted to have an anion gap metabolic acidosis with acetones in the urine Patient was diagnosed with rapid ketoacidosis was started on insulin drip per protocol Today patient states that he has severe burning in his abdomen which he seems to complain of during a readmission Patient requests narcotics for control the pain or graft patient states that he is compliant with his insulin however has been admitted or 5 days ago with diabetic ketoacidosis and discharged in a stable condition Patient was able to tolerate diet. Recommended to ambulate Patient was instructed regarding the importance of using insulin and prevention of diabetic ketoacidosis Review of Systems All systems: negative (Noted in HPI) Past Medical History Past Medical History: Heart Failure, Diabetes Mellitus, Hypertension, Pneumonia , Renal Disease, Rheumatoid Arthritis (RA), Skin Disorder Additional Past Medical History / Comment(s): Pt recently admitted 10/20/16 sepsis 2ndary to R middle lobe pne, DKA and on 10/28/16 with hyperosmolar nonketotic acidosis/hyponatremia. Other hx: IDDM poorly controlled, DKAs, diabetic gastroparesis, bilateral feet/hands peripheral neuropathy, blood behind both eyes, peptic ulcer disease/duodenal ulcer/gastritis with erosions, previous hospitalization for pulmonary edema and bilateral pleural effusion and subsequent evaluation showed a preserved LV function with an ejection fraction of around 50%, CKD stage III, normocytic chronic anemia, rheumatoid arthritis, DJD, chronic back pain, osteoarthritis-generalized, eczema, psoriasis, ear infections, hx of narcotic abuse, cocaine abuse and alcohol abuse. History of Any Multi-Drug Resistant Organisms: MRSA Date of last positivie culture/infection: 02/25/08 MDRO Source:: Neck Past Surgical History: Adenoidectomy, Tonsillectomy Additional Past Surgical History / Comment(s): colonoscopy 2008, EGD, lt great toe amp, and part of 2nd toe. Past Anesthesia/Blood Transfusion Reactions: No Reported Reaction Smoking Status: Never smoker - Past Family History Father Family Medical History: Diabetes Mellitus, Hypertension Additional Family Medical History / Comment(s): father at the age of 82 yrs from diabetic complications. Mother Additional Family Medical History / Comment(s): pyschiatric issues. Mother is 78yrs old. Medications and Allergies Home Medications Medication Instructions Recorded Confirmed Type Metoprolol Tartrate [Lopressor] 25 mg PO BID 08/05/16 11/27/16 History traZODone HCL [Desyrel] 200 mg PO HS 08/05/16 11/27/16 History amLODIPine [Norvasc] 5 mg PO DAILY 10/06/16 11/27/16 History Lisinopril [Zestril] 10 mg PO DAILY 10/20/16 11/27/16 History INSULIN LISPRO (humaLOG) [humaLOG See Protocol SQ AC-TID 10/28/16 11/27/16 History (formulary)] Allergies Allergy/AdvReac Type Severity Reaction Status Date / Time No Known Allergies Allergy Verified 11/19/16 14:48 Physical Exam Vitals: Vital Signs Temp Pulse Pulse Resp BP BP BP 11/28/16 15:00 96.8 F L 93 16 161/90 11/28/16 12:09 96.8 F L 83 16 182/98 11/28/16 08:00 97.6 F 85 16 181/75 11/28/16 04:00 97.5 F L 88 16 161/86 11/28/16 00:00 97.7 F 91 16 193/91 11/27/16 20:54 97.7 F 104 H 16 190/95 11/27/16 19:29 98.7 F 123 H 16 167/77 11/27/16 18:29 98.4 F 121 H 22 137/60 11/27/16 17:16 99.5 F 107 H 18 162/67 Pulse Ox 11/28/16 15:00 100 11/28/16 12:09 99 11/28/16 08:00 100 11/28/16 04:00 100 11/28/16 00:00 100 11/27/16 20:54 100 11/27/16 19:29 100 11/27/16 18:29 99 11/27/16 17:16 100 Intake and Output 11/28/16 11/28/16 11/28/16 06:59 14:59 22:59 Intake Total 3108.195 3972.95 Balance 2565.791 5928.95 Intake: IV 1200 1200 D5-0.45% NaCl with KCl 600 1200 20Meq/l 1,000 ml @ 150 mls/hr IV .[id number] [facility] Rx# :[id number] Sodium Chloride 0.9% 1, 600 000 ml @ 200 mls/hr IV . Q5H [facility] Rx#:[id number] Intake, IV Titration 95.205 1.95 Amount Insulin Regular 100 unit 95.205 1.95 In Sodium Chloride 0.9% 100 ml @ 0.1 UNITS/KG/HR 7.78 mls/hr IV .[id number] [facility] Rx#:[id number] Oral 0 Other: Voiding Method Urinal Urinal Weight 67.1 kg 67.1 kg Patient Weight 11/29/16 06:59 Weight 67.1 kg Physical exam Gen. appearance oriented 3 in no distress Neck is supple no JVD Lungs good air entry clear to auscultation no rhonchi or wheezing Heart S1-S2 heard regular rate and rhythm no murmurs appreciated Abdomen is soft nontender no organomegaly bowel sounds are intact Neurologically cranial nerves II-12 grossly intact no focal motor or sensory deficits noted Skin no abnormalities appreciated Results CBC & Chem 7: 11/28/16 06:24 11/28/16 06:24 Labs: Abnormal Lab Results - Last 24 Hours (Table) 11/27/16 11/27/16 11/27/16 Range/Units 17:19 17:45 17:45 WBC (3.8-10.6) k/uL RBC 3.90 L (4.30-5.90) m/uL Hgb 12.5 L (13.0-17.5) gm/dL MCV 102.2 H D (80.0-100.0) fL Neutrophils # 8.0 H (1.3-7.7) k/uL APTT (22.0-30.0) sec Sodium 134 L (137-145) mmol/L Potassium (3.5-5.1) mmol/L Chloride 91 L (98-107) mmol/L Carbon Dioxide 7 L* (22-30) mmol/L Creatinine 1.30 H (0.66-1.25) mg/dL Glucose 687 H* (74-99) mg/dL POC Glucose (mg/dL) >600 H (75-99) mg/dL Hemoglobin A1c (4.2-6.1) % Plasma Lactic Acid Eliazar (0.7-2.0) mmol/L Phosphorus (2.5-4.5) mg/dL Alkaline Phosphatase 162 H (38-126) U/L Urine Glucose (UA) (Negative) Urine Ketones (Negative) 11/27/16 11/27/16 11/27/16 Range/Units 17:45 17:45 19:00 WBC (3.8-10.6) k/uL RBC (4.30-5.90) m/uL Hgb (13.0-17.5) gm/dL MCV (80.0-100.0) fL Neutrophils # (1.3-7.7) k/uL APTT 20.6 L (22.0-30.0) sec Sodium (137-145) mmol/L Potassium (3.5-5.1) mmol/L Chloride (98-107) mmol/L Carbon Dioxide (22-30) mmol/L Creatinine (0.66-1.25) mg/dL Glucose (74-99) mg/dL POC Glucose (mg/dL) (75-99) mg/dL Hemoglobin A1c (4.2-6.1) % Plasma Lactic Acid Eliazar 6.3 H* (0.7-2.0) mmol/L Phosphorus (2.5-4.5) mg/dL Alkaline Phosphatase (38-126) U/L Urine Glucose (UA) 4+ H (Negative) Urine Ketones 4+ H (Negative) 11/27/16 11/27/16 11/27/16 Range/Units 19:04 19:34 20:09 WBC (3.8-10.6) k/uL RBC (4.30-5.90) m/uL Hgb (13.0-17.5) gm/dL MCV (80.0-100.0) fL Neutrophils # (1.3-7.7) k/uL APTT (22.0-30.0) sec Sodium (137-145) mmol/L Potassium (3.5-5.1) mmol/L Chloride (98-107) mmol/L Carbon Dioxide (22-30) mmol/L Creatinine (0.66-1.25) mg/dL Glucose (74-99) mg/dL POC Glucose (mg/dL) >600 H >600 H >600 H (75-99) mg/dL Hemoglobin A1c (4.2-6.1) % Plasma Lactic Acid Eliazar (0.7-2.0) mmol/L Phosphorus (2.5-4.5) mg/dL Alkaline Phosphatase (38-126) U/L Urine Glucose (UA) (Negative) Urine Ketones (Negative) 11/27/16 11/27/16 11/27/16 Range/Units 20:40 20:57 21:06 WBC (3.8-10.6) k/uL RBC (4.30-5.90) m/uL Hgb (13.0-17.5) gm/dL MCV (80.0-100.0) fL Neutrophils # (1.3-7.7) k/uL APTT (22.0-30.0) sec Sodium (137-145) mmol/L Potassium (3.5-5.1) mmol/L Chloride (98-107) mmol/L Carbon Dioxide 10 L* (22-30) mmol/L Creatinine 1.30 H (0.66-1.25) mg/dL Glucose 535 H* (74-99) mg/dL POC Glucose (mg/dL) >600 H 538 H (75-99) mg/dL Hemoglobin A1c (4.2-6.1) % Plasma Lactic Acid Eliazar (0.7-2.0) mmol/L Phosphorus (2.5-4.5) mg/dL Alkaline Phosphatase (38-126) U/L Urine Glucose (UA) (Negative) Urine Ketones (Negative) 11/27/16 11/27/16 11/27/16 Range/Units 22:05 23:22 23:27 WBC (3.8-10.6) k/uL RBC (4.30-5.90) m/uL Hgb (13.0-17.5) gm/dL MCV (80.0-100.0) fL Neutrophils # (1.3-7.7) k/uL APTT (22.0-30.0) sec Sodium (137-145) mmol/L Potassium (3.5-5.1) mmol/L Chloride (98-107) mmol/L Carbon Dioxide (22-30) mmol/L Creatinine (0.66-1.25) mg/dL Glucose (74-99) mg/dL POC Glucose (mg/dL) 424 H 284 H (75-99) mg/dL Hemoglobin A1c (4.2-6.1) % Plasma Lactic Acid Eliazar 3.1 H* (0.7-2.0) mmol/L Phosphorus (2.5-4.5) mg/dL Alkaline Phosphatase (38-126) U/L Urine Glucose (UA) (Negative) Urine Ketones (Negative) 11/28/16 11/28/16 11/28/16 Range/Units 00:06 00:32 01:03 WBC (3.8-10.6) k/uL RBC (4.30-5.90) m/uL Hgb (13.0-17.5) gm/dL MCV (80.0-100.0) fL Neutrophils # (1.3-7.7) k/uL APTT (22.0-30.0) sec Sodium (137-145) mmol/L Potassium (3.5-5.1) mmol/L Chloride (98-107) mmol/L Carbon Dioxide 20 L (22-30) mmol/L Creatinine (0.66-1.25) mg/dL Glucose 248 H (74-99) mg/dL POC Glucose (mg/dL) 278 H 221 H (75-99) mg/dL Hemoglobin A1c (4.2-6.1) % Plasma Lactic Acid Eliazar (0.7-2.0) mmol/L Phosphorus 2.2 L (2.5-4.5) mg/dL Alkaline Phosphatase (38-126) U/L Urine Glucose (UA) (Negative) Urine Ketones (Negative) 11/28/16 11/28/16 11/28/16 Range/Units 02:04 03:07 03:56 WBC (3.8-10.6) k/uL RBC (4.30-5.90) m/uL Hgb (13.0-17.5) gm/dL MCV (80.0-100.0) fL Neutrophils # (1.3-7.7) k/uL APTT (22.0-30.0) sec Sodium (137-145) mmol/L Potassium (3.5-5.1) mmol/L Chloride (98-107) mmol/L Carbon Dioxide (22-30) mmol/L Creatinine (0.66-1.25) mg/dL Glucose (74-99) mg/dL POC Glucose (mg/dL) 180 H 172 H 127 H (75-99) mg/dL Hemoglobin A1c (4.2-6.1) % Plasma Lactic Acid Eliazar (0.7-2.0) mmol/L Phosphorus (2.5-4.5) mg/dL Alkaline Phosphatase (38-126) U/L Urine Glucose (UA) (Negative) Urine Ketones (Negative) 11/28/16 11/28/16 11/28/16 Range/Units 05:01 06:01 06:24 WBC (3.8-10.6) k/uL RBC (4.30-5.90) m/uL Hgb (13.0-17.5) gm/dL MCV (80.0-100.0) fL Neutrophils # (1.3-7.7) k/uL APTT (22.0-30.0) sec Sodium (137-145) mmol/L Potassium (3.5-5.1) mmol/L Chloride (98-107) mmol/L Carbon Dioxide (22-30) mmol/L Creatinine (0.66-1.25) mg/dL Glucose (74-99) mg/dL POC Glucose (mg/dL) 116 H 112 H (75-99) mg/dL Hemoglobin A1c 11.3 H (4.2-6.1) % Plasma Lactic Acid Eliazar (0.7-2.0) mmol/L Phosphorus (2.5-4.5) mg/dL Alkaline Phosphatase (38-126) U/L Urine Glucose (UA) (Negative) Urine Ketones (Negative) 11/28/16 11/28/16 11/28/16 Range/Units 06:24 06:24 07:08 WBC 10.9 H (3.8-10.6) k/uL RBC 4.18 L (4.30-5.90) m/uL Hgb (13.0-17.5) gm/dL MCV (80.0-100.0) fL Neutrophils # (1.3-7.7) k/uL APTT (22.0-30.0) sec Sodium (137-145) mmol/L Potassium 5.6 H (3.5-5.1) mmol/L Chloride (98-107) mmol/L Carbon Dioxide 21 L (22-30) mmol/L Creatinine (0.66-1.25) mg/dL Glucose (74-99) mg/dL POC Glucose (mg/dL) 100 H (75-99) mg/dL Hemoglobin A1c (4.2-6.1) % Plasma Lactic Acid Eliazar (0.7-2.0) mmol/L Phosphorus (2.5-4.5) mg/dL Alkaline Phosphatase (38-126) U/L Urine Glucose (UA) (Negative) Urine Ketones (Negative) 11/28/16 11/28/16 11/28/16 Range/Units 07:32 08:51 10:02 WBC (3.8-10.6) k/uL RBC (4.30-5.90) m/uL Hgb (13.0-17.5) gm/dL MCV (80.0-100.0) fL Neutrophils # (1.3-7.7) k/uL APTT (22.0-30.0) sec Sodium (137-145) mmol/L Potassium (3.5-5.1) mmol/L Chloride (98-107) mmol/L Carbon Dioxide (22-30) mmol/L Creatinine (0.66-1.25) mg/dL Glucose (74-99) mg/dL POC Glucose (mg/dL) 103 H 134 H 172 H (75-99) mg/dL Hemoglobin A1c (4.2-6.1) % Plasma Lactic Acid Eliazar (0.7-2.0) mmol/L Phosphorus (2.5-4.5) mg/dL Alkaline Phosphatase (38-126) U/L Urine Glucose (UA) (Negative) Urine Ketones (Negative) 11/28/16 11/28/16 Range/Units 11:24 12:07 WBC (3.8-10.6) k/uL RBC (4.30-5.90) m/uL Hgb (13.0-17.5) gm/dL MCV (80.0-100.0) fL Neutrophils # (1.3-7.7) k/uL APTT (22.0-30.0) sec Sodium (137-145) mmol/L Potassium (3.5-5.1) mmol/L Chloride (98-107) mmol/L Carbon Dioxide (22-30) mmol/L Creatinine (0.66-1.25) mg/dL Glucose (74-99) mg/dL POC Glucose (mg/dL) 169 H 174 H (75-99) mg/dL Hemoglobin A1c (4.2-6.1) % Plasma Lactic Acid Eliazar (0.7-2.0) mmol/L Phosphorus (2.5-4.5) mg/dL Alkaline Phosphatase (38-126) U/L Urine Glucose (UA) (Negative) Urine Ketones (Negative) Thrombosis Risk Factor Assmnt - Choose All That Apply Any of the Below Risk Factors Present?: Yes Each Factor Represents 1 point: Age 41-60 years Other Risk Factors: No Other congenital or acquired thrombophilia - If yes, enter type in comment: No Thrombosis Risk Factor Assessment Total Risk Factor Score: 1 Thrombosis Risk Factor Assessment Level: Low Risk Assessment and Plan Plan: Diabetic ketoacidosis #2 diabetic gastroparesis 3 peripheral neuropathy #4 opioid dependency with pain seeking behavior #5 hypertension #6 dyslipidemia #7 remote history of CAD plan Patient will be discharged home. Again discussed importance of compliance Patient gets angry as he is not given narcotics However patient's anion gap is closed discussed importance of using insulin and preventing further episodes of DKA to improve his gastroparesis and chronic abdominal pain Was able to tolerate diet hence discharged home in stable condition
[2016-11-28 17:52] LABS: Glucose,Whole Blood 119 mg/dL (75-99)
== END 2016-11-28 19:01 | disposition home or self-care (01) ==
LOC: EC 17:13 → 6SEL 18:50 → INTOOBSV 18:50 → 4MS4W 11-28 11:53
PROVIDERS: ADMIT Internal Medicine; ATTEND Internal Medicine
DX: E13.10 Other specified diabetes mellitus with ketoacidosis without coma (principal); N17.9 Acute kidney failure, unspecified; E87.5 Hyperkalemia; I13.0 Hypertensive heart and chronic kidney disease with heart failure and stage 1 through stage 4 chronic kidney disease, or unspecified chronic kidney disease; F11.20 Opioid dependence, uncomplicated; I50.9 Heart failure, unspecified; N18.3 Chronic kidney disease, stage 3 (moderate); K31.84 Gastroparesis; M06.9 Rheumatoid arthritis, unspecified; M19.91 Primary osteoarthritis, unspecified site; E78.5 Hyperlipidemia, unspecified; I25.10 Atherosclerotic heart disease of native coronary artery without angina pectoris; G89.29 Other chronic pain; M54.9 Dorsalgia, unspecified; L40.9 Psoriasis, unspecified; Z76.5 Malingerer [conscious simulation]; Z87.898 Personal history of other specified conditions; Z86.14 Personal history of Methicillin resistant Staphylococcus aureus infection; Z79.4 Long term (current) use of insulin; Z79.899 Other long term (current) drug therapy; Z83.3 Family history of diabetes mellitus
CPT/HCPCS: 96376; 96374; 96361; 99285; 36415; 93005; 80051 ×2; 80053; 80048; 82150; 83036; 82565 ×2; 82009; 83605 ×2; 83690; 83735; 84100 ×2; 82947 ×2; 84520 ×2; 85025 ×2; 85610; 85730; 81003; 80306; G0378 ×2; J2405 ×2; J2270 ×2; C9113 ×2; 96360

== ENCOUNTER 2016-12-02 14:23 | Inpatient (IN) | payer OTHER ==
[2016-12-02 14:39] LABS: Glucose,Whole Blood >600 mg/dL (75-99)
[2016-12-02] MEDS ORDERED: MORPHINE SULFATE 10 MG/ML SYRINGE IM STA (15:15)
[2016-12-02 16:06] LABS: VBG PH 7.16 (7.31-7.41)
[2016-12-02 16:15] LABS: ALT 30 U/L (21-72); AST 32 U/L (17-59); Alkaline Phosphatase 193 U/L (38-126); Anion Gap 33 mmol/L; Blood Urea Nitrogen 24 mg/dL (9-20); Calcium 9.4 mg/dL (8.4-10.2); Chloride 92 mmol/L (98-107); Non-African American GFR(MDRD) 49 (>60 ml/min/1.73 sqM); Potassium 5.6 mmol/L (3.5-5.1); Sodium 131 mmol/L (137-145); Total Bilirubin 0.9 mg/dL (0.2-1.3); Total Protein 6.7 g/dL (6.3-8.2)
[2016-12-02 16:15] LABS: Appearance,Urine Clear (Clear); Bilirubin,Urine Negative (Negative); Glucose,Urine (UA) 4+ (Negative); Leukocyte Esterase,Urine Negative (Negative); Nitrite,Urine Negative (Negative); Protein,Urine Negative (Negative); Specific Gravity,Urine 1.018 (1.001-1.035); UA Billing (MACRO vs. MICRO) CHEM; Urobilinogen,Urine <2.0 mg/dL (<2.0)
[2016-12-02] MEDS ORDERED: SODIUM CHLORIDE 0.9% 2,000 ML IV ONE (16:17)
[2016-12-02] MEDS ORDERED: ONDANSETRON 4 MG/2 ML VIAL IVP STA (16:17)
[2016-12-02 16:23] LABS: Carbon Dioxide 6 mmol/L (22-30); Glucose 824 mg/dL (74-99)
[2016-12-02 16:31] LABS: Basophils % (A) 0 %; CH 30.4; CHCM 28.2; Eosinophils % (A) 0 %; HCT 45.5 % (39.0-53.0); HDW 2.54; HGB 13.4 gm/dL (13.0-17.5); Hypochromasia Marked; Luc # (Auto) 0.09; Luc % (Auto) 1; Lymphocytes # (A) 0.8 k/uL (1.0-4.8); Lymphocytes % (A) 8 %; MCH 31.9 pg (25.0-35.0); MCHC 29.5 g/dL (31.0-37.0); Macrocytosis Marked; Mean Platelet Volume 9.6; Monocytes # (A) 0.7 k/uL (0-1.0); Monocytes % (A) 7 %; Neutrophils # (A) 8.4 k/uL (1.3-7.7); Neutrophils % (A) 84 %; RDW 14.6 % (11.5-15.5); WBC (Perox) 10.39
[2016-12-02 16:33] LABS: MCV 108.3 fL (80.0-100.0)
[2016-12-02 16:59] LABS: Ketones,Urine 3+ (Negative)
[2016-12-02 17:04] LABS: Manual Review Performed
--- NOTE | 2016-12-02 17:33 | ED ---
General Adult HPI - General Chief complaint: Recheck/Abnormal Lab/Rx Stated complaint: ABDOMINAL PAIN Time Seen by Provider: 12/02/16 14:51 Source: patient, RN notes reviewed, old records reviewed Mode of arrival: EMS Limitations: no limitations - History of Present Illness Initial comments: 56 yo male with history of type 1 diabetes, gastroparesis, and chronic abdominal pain presents presents with elevated blood sugar and worsening abdominal pain. Patient has had multiple admissions for this in the past as recently as 3 days ago. Patient denies missing any medication including his insulin. States his abdominal pain is typical of his DKA episodes. Denies chest pain or shortness of breath. Denies fever chills. - Related Data Home Medications Medication Instructions Recorded Confirmed Metoprolol Tartrate [Lopressor] 25 mg PO BID 08/05/16 12/02/16 traZODone HCL [Desyrel] 200 mg PO HS 08/05/16 12/02/16 amLODIPine [Norvasc] 5 mg PO DAILY 10/06/16 12/02/16 Lisinopril [Zestril] 10 mg PO DAILY 10/20/16 12/02/16 INSULIN LISPRO (humaLOG) [humaLOG See Protocol SQ AC-TID 10/28/16 12/02/16 (formulary)] Previous Rx's Medication Instructions Recorded Folic Acid 1 mg PO DAILY #30 tablet 07/16/16 Multivitamins, Thera [Multivitamin 1 tab PO DAILY #30 tablet 07/16/16 (formulary)] Thiamine [Vitamin B-1] 100 mg PO DAILY #30 tablet 07/16/16 Polyethylene Glycol 3350 [Miralax] 17 gm PO DAILY PRN #30 packet 07/25/16 Calcium Carbonate [Tums] 500 mg PO TID #1 chew 09/02/16 Gabapentin [Neurontin] 100 mg PO TID #60 cap 09/02/16 Metoclopramide HCl [Reglan] 5 mg PO TID #30 tablet 10/07/16 Sucralfate [Carafate] 1 gm PO ACHS #120 tablet 10/12/16 Insulin Detemir [Levemir] 15 unit SQ HS #0 vial 10/29/16 Omeprazole [PriLOSEC] 20 mg PO AC-BID #60 cap 10/29/16 Acetaminophen Tab [Tylenol] 650 mg PO Q6HR PRN tab 11/12/16 INSULIN LISPRO (humaLOG) [humaLOG 5 unit SQ AC-TID #1 vial 11/21/16 (formulary)] LORazepam [Ativan] 0.5 mg PO Q8HR PRN #10 tab 11/21/16 Pantoprazole [Protonix] 40 mg PO AC-BID #60 tab 11/21/16 Allergies Allergy/AdvReac Type Severity Reaction Status Date / Time No Known Allergies Allergy Verified 12/02/16 14:46 Review of Systems ROS Statement: Those systems with pertinent positive or pertinent negative responses have been documented in the HPI. ROS Other: All systems not noted in ROS Statement are negative. Past Medical History Past Medical History: Heart Failure, Diabetes Mellitus, Hypertension, Pneumonia , Renal Disease, Rheumatoid Arthritis (RA), Skin Disorder Additional Past Medical History / Comment(s): Pt recently admitted 10/20/16 sepsis 2ndary to R middle lobe pne, DKA and on 10/28/16 with hyperosmolar nonketotic acidosis/hyponatremia. Other hx: IDDM poorly controlled, DKAs, diabetic gastroparesis, bilateral feet/hands peripheral neuropathy, blood behind both eyes, peptic ulcer disease/duodenal ulcer/gastritis with erosions, previous hospitalization for pulmonary edema and bilateral pleural effusion and subsequent evaluation showed a preserved LV function with an ejection fraction of around 50%, CKD stage III, normocytic chronic anemia, rheumatoid arthritis, DJD, chronic back pain, osteoarthritis-generalized, eczema, psoriasis, ear infections, hx of narcotic abuse, cocaine abuse and alcohol abuse. History of Any Multi-Drug Resistant Organisms: MRSA Date of last positivie culture/infection: 02/25/08 MDRO Source:: Neck Past Surgical History: Adenoidectomy, Tonsillectomy Additional Past Surgical History / Comment(s): colonoscopy 2008, EGD, lt great toe amp, and part of 2nd toe. Past Anesthesia/Blood Transfusion Reactions: No Reported Reaction Past Psychological History: No Psychological Hx Reported Smoking Status: Never smoker Past Alcohol Use History: Unable to Obtain Past Drug Use History: Cocaine, Marijuana, Opiates, Prescription Drug Abuse - Past Family History Father Family Medical History: Diabetes Mellitus, Hypertension Additional Family Medical History / Comment(s): father at the age of 82 yrs from diabetic complications. Mother Additional Family Medical History / Comment(s): pyschiatric issues. Mother is 78yrs old. General Exam Limitations: no limitations General appearance: alert, in no apparent distress Head exam: Present: atraumatic, normocephalic Eye exam: Present: normal appearance, PERRL ENT exam: Present: normal exam, mucous membranes dry Respiratory exam: Present: normal lung sounds bilaterally. Absent: respiratory distress Cardiovascular Exam: Present: normal rhythm, tachycardia GI/Abdominal exam: Present: soft, tenderness (Epigastric tenderness to palpation , no rebound or guarding) Extremities exam: Present: full ROM, normal capillary refill Neurological exam: Present: alert, oriented X3 Psychiatric exam: Present: normal affect, normal mood Skin exam: Present: warm, dry. Absent: cyanosis, diaphoretic Course Vital Signs 12/02/16 12/02/16 14:30 16:33 Temperature 98.0 F 98.0 F Pulse Rate 106 H 106 H Respiratory 18 18 Rate Blood Pressure 137/63 142/62 O2 Sat by Pulse 100 96 Oximetry Medical Decision Making - Medical Decision Making Sexual male with history type 1 diabetes presents with chief complaint of abdominal pain. Patient states, pain is typical of his episodes of DKA. Her laboratory studies would have a lactic acid of 6, positive acetone, blood sugar rate 24, potassium 5.6, creatinine 1.48, and a venous pH is 7.16. IV fluids are initiated, patient is given insulin infusion. He will be admitted with DKA pathway. Diagnosis: DKA, lactic acidosis, hyperkalemia. - Lab Data Result diagrams: 12/02/16 15:44 12/02/16 15:44 Lab Results 12/02/16 12/02/16 12/02/16 Range/Units 14:37 15:44 15:44 WBC 10.0 (3.8-10.6) k/uL RBC 4.20 L (4.30-5.90) m/uL Hgb 13.4 (13.0-17.5) gm/dL Hct 45.5 (39.0-53.0) % MCV 108.3 H D (80.0-100.0) fL MCH 31.9 (25.0-35.0) pg MCHC 29.5 L (31.0-37.0) g/dL RDW 14.6 (11.5-15.5) % Plt Count 248 (150-450) k/uL Neutrophils % 84 % Lymphocytes % 8 % Monocytes % 7 % Eosinophils % 0 % Basophils % 0 % Neutrophils # 8.4 H (1.3-7.7) k/uL Lymphocytes # 0.8 L (1.0-4.8) k/uL Monocytes # 0.7 (0-1.0) k/uL Eosinophils # 0.0 (0-0.7) k/uL Basophils # 0.0 (0-0.2) k/uL Manual Slide Review Performed Hypochromasia Marked Macrocytosis Marked VBG pH (7.31-7.41) VBG pCO2 (37-51) mmHg VBG HCO3 (24-28) mmol/L Sodium 131 L (137-145) mmol/L Potassium 5.6 H (3.5-5.1) mmol/L Chloride 92 L (98-107) mmol/L Carbon Dioxide 6 L* (22-30) mmol/L Anion Gap 33 mmol/L BUN 24 H (9-20) mg/dL Creatinine 1.48 H (0.66-1.25) mg/dL Est GFR (MDRD) Af Amer 60 (>60 ml/min/1.73 sqM) Est GFR (MDRD) Non-Af 49 (>60 ml/min/1.73 sqM) Glucose 824 H* (74-99) mg/dL POC Glucose (mg/dL) >600 H (75-99) mg/dL POC Glu Front Clerk ID [place] [employer] Plasma Lactic Acid Eliazar (0.7-2.0) mmol/L Calcium 9.4 (8.4-10.2) mg/dL Total Bilirubin 0.9 (0.2-1.3) mg/dL AST 32 (17-59) U/L ALT 30 (21-72) U/L Alkaline Phosphatase 193 H (38-126) U/L Total Protein 6.7 (6.3-8.2) g/dL Albumin 4.1 (3.5-5.0) g/dL Urine Color Urine Appearance (Clear) Urine pH (5.0-8.0) Ur Specific [place] (1.001-1.035) Urine Protein (Negative) Urine Glucose (UA) (Negative) Urine Ketones (Negative) Urine Blood (Negative) Urine Nitrite (Negative) Urine Bilirubin (Negative) Urine Urobilinogen (<2.0) mg/dL Ur Leukocyte Esterase (Negative) Acetone, Qual Positive (Negative) 12/02/16 12/02/16 12/02/16 Range/Units 15:44 15:44 16:04 WBC (3.8-10.6) k/uL RBC (4.30-5.90) m/uL Hgb (13.0-17.5) gm/dL Hct (39.0-53.0) % MCV (80.0-100.0) fL MCH (25.0-35.0) pg MCHC (31.0-37.0) g/dL RDW (11.5-15.5) % Plt Count (150-450) k/uL Neutrophils % % Lymphocytes % % Monocytes % % Eosinophils % % Basophils % % Neutrophils # (1.3-7.7) k/uL Lymphocytes # (1.0-4.8) k/uL Monocytes # (0-1.0) k/uL Eosinophils # (0-0.7) k/uL Basophils # (0-0.2) k/uL Manual Slide Review Hypochromasia Macrocytosis VBG pH 7.16 L* (7.31-7.41) VBG pCO2 26 L (37-51) mmHg VBG HCO3 9 L* (24-28) mmol/L Sodium (137-145) mmol/L Potassium (3.5-5.1) mmol/L Chloride (98-107) mmol/L Carbon Dioxide (22-30) mmol/L Anion Gap mmol/L BUN (9-20) mg/dL Creatinine (0.66-1.25) mg/dL Est GFR (MDRD) Af Amer (>60 ml/min/1.73 sqM) Est GFR (MDRD) Non-Af (>60 ml/min/1.73 sqM) Glucose (74-99) mg/dL POC Glucose (mg/dL) (75-99) mg/dL POC Glu Front Clerk ID Plasma Lactic Acid Eliazar 6.0 H* (0.7-2.0) mmol/L Calcium (8.4-10.2) mg/dL Total Bilirubin (0.2-1.3) mg/dL AST (17-59) U/L ALT (21-72) U/L Alkaline Phosphatase (38-126) U/L Total Protein (6.3-8.2) g/dL Albumin (3.5-5.0) g/dL Urine Color Light Yellow Urine Appearance Clear (Clear) Urine pH 5.0 (5.0-8.0) Ur Specific [place] 1.018 (1.001-1.035) Urine Protein Negative (Negative) Urine Glucose (UA) 4+ H (Negative) Urine Ketones 3+ H (Negative) Urine Blood Negative (Negative) Urine Nitrite Negative (Negative) Urine Bilirubin Negative (Negative) Urine Urobilinogen <2.0 (<2.0) mg/dL Ur Leukocyte Esterase Negative (Negative) Acetone, Qual (Negative) Critical Care Time Critical Care Time: Yes (35) Disposition Clinical Impression: DKA (diabetic ketoacidoses) Disposition: ADMITTED IP TO THIS [facility] Condition: Serious Referrals: Sofia Emanuel MD [Primary Care Provider] - 1-2 days Decision to Admit Reason: Admit from EC Decision Date: 12/02/16 Decision Time: 17:35
[2016-12-02 18:19] LABS: Glucose,Whole Blood >600 mg/dL (75-99)
[2016-12-02] MEDS: SODIUM CHLORIDE 0.9% 1,000 ML IV SCH ×3 (19:13→21:13)
[2016-12-02] MEDS: INSULIN REGULAR 100 UNIT in SODIUM CHLORIDE 0.9% 100 ML IV SCH (19:15)
[2016-12-02 20:37] LABS: Glucose,Whole Blood >600 mg/dL (75-99)
[2016-12-02] MEDS: MORPHINE SULFATE 4 MG/ML SYRINGE IVP SCH ×2 (20:56→21:01)
[2016-12-02] MEDS: METOCLOPRAMIDE 5 MG TAB PO SCH (21:19)
[2016-12-02] MEDS: GABAPENTIN 100 MG CAP PO SCH (21:19)
[2016-12-02] MEDS ORDERED: amLODIPine 5 MG TAB PO STA (21:53)
[2016-12-02 22:00] LABS: Glucose,Whole Blood >600 mg/dL (75-99)
[2016-12-02 22:33] LABS: Potassium 3.9 mmol/L (3.5-5.1)
[2016-12-02 23:01] LABS: Glucose,Whole Blood 505 mg/dL (75-99)
[2016-12-02] MEDS: D5-0.45% NACL WITH KCL 20MEQ/L 1,000 ML IV SCH (23:06)
[2016-12-03 00:21] LABS: Glucose,Whole Blood 439 mg/dL (75-99)
[2016-12-03] MEDS: SODIUM CHLORIDE 0.9% 1,000 ML IV SCH ×2 (00:46)
[2016-12-03 01:19] LABS: Glucose,Whole Blood 373 mg/dL (75-99)
[2016-12-03] MEDS: MORPHINE SULFATE 4 MG/ML SYRINGE IVP SCH ×5 (01:33→18:55)
[2016-12-03 02:03] LABS: Glucose,Whole Blood 307 mg/dL (75-99)
[2016-12-03 02:42] LABS: CH 31.8; CHCM 33.2; HCT 38.6 % (39.0-53.0); HGB 12.5 gm/dL (13.0-17.5); MCH 31.2 pg (25.0-35.0); MCHC 32.3 g/dL (31.0-37.0); Mean Platelet Volume 8.9; RDW 15.2 % (11.5-15.5); WBC 17.1 k/uL (3.8-10.6)
[2016-12-03 02:43] LABS: MCV 96.4 fL (80.0-100.0)
[2016-12-03 02:52] LABS: Anion Gap 14 mmol/L; Blood Urea Nitrogen 24 mg/dL (9-20); Carbon Dioxide 18 mmol/L (22-30); Chloride 108 mmol/L (98-107); Glucose 263 mg/dL (74-99); Non-African American GFR(MDRD) >60 (>60 ml/min/1.73 sqM); Phosphorous 2.7 mg/dL (2.5-4.5); Potassium 4.8 mmol/L (3.5-5.1); Sodium 140 mmol/L (137-145)
[2016-12-03] MEDS: D5-0.45% NACL WITH KCL 20MEQ/L 1,000 ML IV SCH ×3 (03:07→20:51)
[2016-12-03 03:09] LABS: Glucose,Whole Blood 252 mg/dL (75-99)
[2016-12-03 04:16] LABS: Glucose,Whole Blood 149 mg/dL (75-99)
[2016-12-03 05:09] LABS: Glucose,Whole Blood 122 mg/dL (75-99)
[2016-12-03 06:08] LABS: Glucose,Whole Blood 112 mg/dL (75-99)
[2016-12-03 06:26] LABS: ALT 41 U/L (21-72); AST 19 U/L (17-59); Alkaline Phosphatase 122 U/L (38-126); Anion Gap 8 mmol/L; Blood Urea Nitrogen 21 mg/dL (9-20); Calcium 8.8 mg/dL (8.4-10.2); Carbon Dioxide 25 mmol/L (22-30); Chloride 107 mmol/L (98-107); Glucose 93 mg/dL (74-99); Magnesium 1.9 mg/dL (1.6-2.3); Non-African American GFR(MDRD) >60 (>60 ml/min/1.73 sqM); Phosphorous 2.6 mg/dL (2.5-4.5); Sodium 140 mmol/L (137-145); Total Bilirubin 0.2 mg/dL (0.2-1.3); Total Protein 5.6 g/dL (6.3-8.2)
[2016-12-03 07:07] LABS: Glucose,Whole Blood 96 mg/dL (75-99)
[2016-12-03 07:41] LABS: Glucose,Whole Blood 109 mg/dL (75-99)
[2016-12-03 08:40] LABS: Glucose,Whole Blood 101 mg/dL (75-99)
[2016-12-03] MEDS: INSULIN REGULAR 100 UNIT in SODIUM CHLORIDE 0.9% 100 ML IV SCH ×3 (09:05→23:46)
[2016-12-03] MEDS: amLODIPine 5 MG TAB PO SCH (09:11)
[2016-12-03] MEDS: LISINOPRIL 10 MG TAB PO SCH (09:11)
[2016-12-03] MEDS: GABAPENTIN 100 MG CAP PO SCH ×2 (09:11→18:27)
[2016-12-03] MEDS: METOCLOPRAMIDE 5 MG TAB PO SCH ×2 (09:12→18:26)
[2016-12-03] MEDS: INSULIN LISPRO (humaLOG) 300 UNIT/3 ML VIAL SQ SCH ×3 (12:33→18:27)
--- NOTE | 2016-12-03 14:18 | HP ---
A 56-year-old male with type 1 diabetes mellitus, gastroparesis , chronic abdominal pain, presence of elevated blood sugar, worsening abdominal pain for the past 3 days, similar to his prior DKA episode and noncompliant as all get out with his diabetes mellitus. He is supposed to be taking Lispro a.c. and at bedtime, Zestril 10 mg daily, Norvasc 5 mg daily, Desyrel 200 q.h.s., Lopressor 25 b.i.d., folic acid 1 mg daily, multivitamin daily, Carafate 1 gm a.c. and at bedtime, Reglan 5 mg t.i.d. , Levemir 16 units daily, Prilosec 20 mg b.i.d., Ativan 0.5 q.8 hours, Protonix 40 mg b.i.d. ALLERGIES: No known drug allergies. A 14-point review of systems negative except for as mentioned in the HPI. PAST MEDICAL HISTORY: Heart failure, diabetes mellitus, hypertension, pneumonia , renal disease, rheumatoid arthritis, skin disorders, gastroparesis, neuropathy , peptic ulcer disease, duodenal ulcers, stage II renal artery disease, normocytic, ( ), anemia, narcotic abuse, cocaine abuse, alcohol abuse, noncompliance. Surgery is adenoidectomy, tonsillectomy. PAST DRUG HISTORY: Cocaine, marijuana, prescription drug use. FAMILY HISTORY: Father had diabetes mellitus, hypertension. Mother had psychiatric issues. PHYSICAL EXAM: Stable, afebrile. HEENT: Normocephalic, atraumatic, pupils equal, round and reactive to light and accommodation. RESPIRATORY: Clear. GI: Soft, nontender. HEMATOLOGIC: Negative Homans. GI: Normal bowel sounds. ASSESSMENT: 1. Acute diabetic ketoacidosis. ( ) positive. 2. Hyperkalemia, stage II to III renal insufficiency. 3. Metabolic acidosis secondary to diabetic ketoacidosis. 4. Lactic acidosis. 5. Hyperkalemia. Continue to replace electrolytes, diabetic ketoacidosis protocol. Fluid rehydration. Switch to Accu-Chek once the gap is closed. Put him back on his home medications. Compliance will be ordered. [facility]
[2016-12-03 14:46] LABS: Hemoglobin A1C 11.2 % (4.2-6.1)
[2016-12-03 17:06] LABS: Glucose,Whole Blood 534 mg/dL (75-99)
[2016-12-03 17:06] LABS: Glucose,Whole Blood 514 mg/dL (75-99)
[2016-12-03 20:21] LABS: Glucose,Whole Blood >600 mg/dL (75-99)
[2016-12-03] MEDS ORDERED: INSULIN GLARGINE 100 UNIT/ML 10 ML VIAL SQ SCH (21:00)
[2016-12-03 21:18] LABS: Glucose,Whole Blood >600 mg/dL (75-99)
[2016-12-03 22:19] LABS: Blood Urea Nitrogen 26 mg/dL (9-20); Calcium 8.9 mg/dL (8.4-10.2); Chloride 95 mmol/L (98-107); Non-African American GFR(MDRD) 57 (>60 ml/min/1.73 sqM); Potassium 5.2 mmol/L (3.5-5.1); Sodium 133 mmol/L (137-145)
[2016-12-03 22:24] LABS: Anion Gap 30 mmol/L
[2016-12-03 22:27] LABS: Carbon Dioxide 8 mmol/L (22-30); Glucose 772 mg/dL (74-99)
[2016-12-04 00:10] LABS: VBG PH 7.28 (7.31-7.41)
[2016-12-04] MEDS ORDERED: INSULIN REGULAR BOLUS (FROM DRIP BAG) IV ONE (00:19)
[2016-12-04] MEDS ORDERED: Potassium Replacement Protocol 1 EACH MISC MISCELLANE PRN ×2 (00:19→01:11)
[2016-12-04] MEDS ORDERED: Magnesium Replacement Protocol 1 EACH MISC MISCELLANE PRN ×3 (00:19→06:52)
[2016-12-04 00:23] LABS: Glucose,Whole Blood 419 mg/dL (75-99)
[2016-12-04 00:24] LABS: Glucose 474 mg/dL (74-99)
[2016-12-04] MEDS ORDERED: INSULIN REGULAR 100 UNIT in SODIUM CHLORIDE 0.9% 100 ML IV SCH (00:30)
[2016-12-04 00:42] LABS: Glucose,Whole Blood 382 mg/dL (75-99)
[2016-12-04] MEDS: METOCLOPRAMIDE 5 MG TAB PO SCH ×4 (01:06→21:51)
[2016-12-04] MEDS: MORPHINE SULFATE 4 MG/ML SYRINGE IVP SCH ×7 (01:06→21:51)
[2016-12-04] MEDS: GABAPENTIN 100 MG CAP PO SCH ×4 (01:06→21:51)
[2016-12-04] MEDS: INSULIN REGULAR 100 UNIT in SODIUM CHLORIDE 0.9% 100 ML IV SCH (01:07)
[2016-12-04] MEDS: SODIUM CHLORIDE 0.9% 1,000 ML IV SCH ×5 (01:10→16:26)
[2016-12-04 01:33] LABS: Appearance,Urine Clear (Clear); Bilirubin,Urine Negative (Negative); Glucose,Urine (UA) 4+ (Negative); Leukocyte Esterase,Urine Negative (Negative); Nitrite,Urine Negative (Negative); Protein,Urine Negative (Negative); Specific Gravity,Urine 1.015 (1.001-1.035); UA Billing (MACRO vs. MICRO) CHEM; Urobilinogen,Urine <2.0 mg/dL (<2.0)
[2016-12-04 01:41] LABS: Anion Gap 25 mmol/L; Blood Urea Nitrogen 24 mg/dL (9-20); Carbon Dioxide 12 mmol/L (22-30); Chloride 97 mmol/L (98-107); Non-African American GFR(MDRD) >60 (>60 ml/min/1.73 sqM); Potassium 5.7 mmol/L (3.5-5.1); Sodium 134 mmol/L (137-145)
[2016-12-04 02:04] LABS: Glucose,Whole Blood 257 mg/dL (75-99)
[2016-12-04 02:24] LABS: Ketones,Urine 4+ (Negative)
[2016-12-04 02:25] LABS: Basophils % (A) 0 %; CH 31.5; Eosinophils # (A) 0.2 k/uL (0-0.7); Eosinophils % (A) 1 %; HDW 2.61; HGB 13.8 gm/dL (13.0-17.5); Luc # (Auto) 0.29; Luc % (Auto) 2; Lymphocytes # (A) 1.4 k/uL (1.0-4.8); Lymphocytes % (A) 8 %; MCH 32.2 pg (25.0-35.0); MCHC 33.6 g/dL (31.0-37.0); MCV 95.7 fL (80.0-100.0); Mean Platelet Volume 8.9; Monocytes # (A) 1.2 k/uL (0-1.0); Monocytes % (A) 7 %; Neutrophils # (A) 14.8 k/uL (1.3-7.7); Neutrophils % (A) 83 %; RBC 4.29 m/uL (4.30-5.90); RDW 15.4 % (11.5-15.5); WBC 17.8 k/uL (3.8-10.6); WBC (Perox) 18.32
[2016-12-04 02:37] LABS: Anion Gap 19 mmol/L; Blood Urea Nitrogen 24 mg/dL (9-20); Calcium 9.4 mg/dL (8.4-10.2); Carbon Dioxide 17 mmol/L (22-30); Chloride 102 mmol/L (98-107); Glucose 256 mg/dL (74-99); Non-African American GFR(MDRD) >60 (>60 ml/min/1.73 sqM); Phosphorous 2.7 mg/dL (2.5-4.5); Potassium 5.5 mmol/L (3.5-5.1); Sodium 138 mmol/L (137-145)
[2016-12-04 02:58] LABS: Glucose,Whole Blood 236 mg/dL (75-99)
[2016-12-04 04:07] LABS: Glucose,Whole Blood 190 mg/dL (75-99)
[2016-12-04] MEDS: D5-0.45% NACL WITH KCL 20MEQ/L 1,000 ML IV SCH ×3 (04:08→16:27)
[2016-12-04 05:08] LABS: Glucose,Whole Blood 150 mg/dL (75-99)
[2016-12-04 06:02] LABS: Glucose,Whole Blood 131 mg/dL (75-99)
[2016-12-04 06:34] LABS: Basophils % (A) 0 %; CH 31.7; CHCM 34.2; Eosinophils # (A) 0.2 k/uL (0-0.7); Eosinophils % (A) 1 %; HCT 38.4 % (39.0-53.0); HDW 2.68; HGB 13.1 gm/dL (13.0-17.5); Luc # (Auto) 0.19; Luc % (Auto) 1; Lymphocytes # (A) 1.7 k/uL (1.0-4.8); Lymphocytes % (A) 11 %; MCH 31.7 pg (25.0-35.0); MCHC 34.1 g/dL (31.0-37.0); Mean Platelet Volume 8.2; Monocytes # (A) 0.8 k/uL (0-1.0); Monocytes % (A) 5 %; Neutrophils % (A) 81 %; RBC 4.13 m/uL (4.30-5.90); RDW 15.5 % (11.5-15.5); WBC 14.9 k/uL (3.8-10.6); WBC (Perox) 15.52
[2016-12-04 06:44] LABS: ALT 26 U/L (21-72); AST 33 U/L (17-59); Alkaline Phosphatase 123 U/L (38-126); Anion Gap 7 mmol/L; Blood Urea Nitrogen 20 mg/dL (9-20); Calcium 8.7 mg/dL (8.4-10.2); Carbon Dioxide 22 mmol/L (22-30); Chloride 107 mmol/L (98-107); Glucose 140 mg/dL (74-99); Magnesium 1.8 mg/dL (1.6-2.3); Non-African American GFR(MDRD) >60 (>60 ml/min/1.73 sqM); Phosphorous 2.5 mg/dL (2.5-4.5); Potassium 5.2 mmol/L (3.5-5.1); Sodium 136 mmol/L (137-145); Total Bilirubin 0.8 mg/dL (0.2-1.3)
[2016-12-04] MEDS ORDERED: INSULIN LISPRO (humaLOG) 300 UNIT/3 ML VIAL SQ SCH (07:30)
[2016-12-04 08:07] LABS: Glucose,Whole Blood 123 mg/dL (75-99)
[2016-12-04] MEDS: amLODIPine 5 MG TAB PO SCH (08:20)
[2016-12-04] MEDS: MAGNESIUM SULFATE-D5W PMX 1 GM in DEXTROSE/WATER 1 100ML.BAG IVPB SCH ×2 (08:30→12:58)
[2016-12-04 09:00] LABS: Glucose,Whole Blood 105 mg/dL (75-99)
[2016-12-04 11:16] LABS: Glucose,Whole Blood 88 mg/dL (75-99)
[2016-12-04] MEDS: LISINOPRIL 10 MG TAB PO SCH (12:57)
[2016-12-04] MEDS: METOPROLOL TARTRATE 25 MG TAB PO SCH ×2 (12:57→20:25)
[2016-12-04] MEDS: INSULIN LISPRO (humaLOG) 300 UNIT/3 ML VIAL SQ SCH ×3 (12:58→20:25)
[2016-12-04 15:30] LABS: ALT 24 U/L (21-72); AST 28 U/L (17-59); Alkaline Phosphatase 125 U/L (38-126); Anion Gap 6 mmol/L; Blood Urea Nitrogen 15 mg/dL (9-20); Calcium 8.2 mg/dL (8.4-10.2); Carbon Dioxide 21 mmol/L (22-30); Chloride 105 mmol/L (98-107); Glucose 114 mg/dL (74-99); Non-African American GFR(MDRD) >60 (>60 ml/min/1.73 sqM); Phosphorous 2.4 mg/dL (2.5-4.5); Potassium 4.9 mmol/L (3.5-5.1); Sodium 132 mmol/L (137-145); Total Bilirubin 0.7 mg/dL (0.2-1.3); Total Protein 5.4 g/dL (6.3-8.2)
[2016-12-04 17:46] LABS: Glucose,Whole Blood 187 mg/dL (75-99)
[2016-12-04] MEDS: MAG HYDROX/AL HYDROX/SIMETH 30 ML CUP PO PRN (18:23)
[2016-12-04 19:54] LABS: Glucose,Whole Blood 228 mg/dL (75-99)
[2016-12-04] MEDS: INSULIN DETEMIR 100 UNIT/ML 10 ML VIAL SQ SCH (20:24)
--- NOTE | 2016-12-04 23:48 | PN ---
-Ugandan male, 56 years old, who appears to have some kind of mental disorder; does not talk much. He states he has had chronic abdominal pain for the past few years, is unable to keep any food or liquid down, and he is noncompliant with his diabetes. He is admitted back to the hospital in the ICU for DKA, placed on insulin protocol. Over the last 24 hours his sugars have been in the 100s. Will get a consult with GI. Waiting for ( ) and possibility of Psychiatry for depression. He has protein-calorie malnutrition with an albumin of 2.8. CARDIOVASCULAR: S1, S2. Lungs are clear. GI: Mild tenderness to palpation. Diffuse tenderness. HEMATOLOGIC: Negative Carol's. PSYCH: Flat mood and affect. ASSESSMENT: 1. Depression. 2. Diabetic ketoacidosis. 3. Gastroparesis. 4. Noncompliance. 5. Hyponatremia. 6. Moderate protein-calorie malnutrition. Nutrition consult. Psychiatric consult. GI consult. SENG
[2016-12-05] MEDS: SODIUM CHLORIDE 0.9% 1,000 ML IV SCH (00:20)
[2016-12-05] MEDS: INSULIN LISPRO (humaLOG) 300 UNIT/3 ML VIAL SQ SCH ×8 (00:21→20:51)
[2016-12-05 02:13] LABS: Glucose,Whole Blood 42 mg/dL (75-99)
[2016-12-05] MEDS: MORPHINE SULFATE 4 MG/ML SYRINGE IVP SCH ×6 (02:20→20:42)
[2016-12-05 02:26] LABS: Glucose,Whole Blood 73 mg/dL (75-99)
[2016-12-05 03:26] LABS: Glucose,Whole Blood 96 mg/dL (75-99)
[2016-12-05 05:58] LABS: Glucose,Whole Blood 78 mg/dL (75-99)
[2016-12-05 06:54] LABS: CHCM 31.9; HCT 36.7 % (39.0-53.0); HDW 2.55; HGB 11.7 gm/dL (13.0-17.5); MCH 31.2 pg (25.0-35.0); MCHC 31.9 g/dL (31.0-37.0); MCV 97.8 fL (80.0-100.0); Mean Platelet Volume 6.9; RBC 3.76 m/uL (4.30-5.90); RDW 15.1 % (11.5-15.5); WBC 7.1 k/uL (3.8-10.6)
[2016-12-05 07:08] LABS: ALT 34 U/L (21-72); AST 15 U/L (17-59); Alkaline Phosphatase 122 U/L (38-126); Anion Gap 7 mmol/L; Blood Urea Nitrogen 10 mg/dL (9-20); Calcium 8.6 mg/dL (8.4-10.2); Carbon Dioxide 24 mmol/L (22-30); Chloride 105 mmol/L (98-107); Glucose 63 mg/dL (74-99); Magnesium 2.1 mg/dL (1.6-2.3); Non-African American GFR(MDRD) >60 (>60 ml/min/1.73 sqM); Phosphorous 2.2 mg/dL (2.5-4.5); Potassium 4.7 mmol/L (3.5-5.1); Sodium 136 mmol/L (137-145); Total Bilirubin 0.4 mg/dL (0.2-1.3); Total Protein 5.4 g/dL (6.3-8.2)
[2016-12-05] MEDS: amLODIPine 5 MG TAB PO SCH (08:25)
[2016-12-05] MEDS: METOPROLOL TARTRATE 25 MG TAB PO SCH ×2 (08:25→20:43)
[2016-12-05] MEDS: GABAPENTIN 100 MG CAP PO SCH ×3 (08:25→20:43)
[2016-12-05] MEDS: LISINOPRIL 10 MG TAB PO SCH (08:25)
[2016-12-05] MEDS: D5-0.45% NACL WITH KCL 20MEQ/L 1,000 ML IV SCH (08:25)
[2016-12-05] MEDS: METOCLOPRAMIDE 5 MG TAB PO SCH ×3 (08:25→20:43)
[2016-12-05] MEDS: ESOMEPRAZOLE 20 MG in SODIUM CHLORIDE 0.9% 50 ML IVPB SCH (11:00)
--- NOTE | 2016-12-05 11:19 | P.CONS ---
History of Present Illness - Reason for Consult Consult date: 12/05/16 gastroparesis Requesting physician: Nimesh De Luna - History of Present Illness 55-year-old gentleman with a past medical history of uncontrolled diabetes mellitus, polysubstance abuse including cocaine and alcohol, hyperlipidemia, chronic abdominal and back pain, GERD, peptic ulcer disease, hypertension, pneumonia, rheumatoid arthritis, neuropathy and psoriasis. Admitted with DKA and acute on chronic abdominal pain nausea vomiting. Multiple hospital admissions for DKA one within the last week. Consultation requested for gastroparesis. Evaluated by general surgery 1 month ago or abdominal pain with plans for EGD but not performed. EGD December [address] Olivier with findings of duodenal ulcer between first and second portion, gastritis few small erosions. Hemoglobin 11.7. White count 7.1. Positive acetone. Liver function tests normal. No reports of gross hematemesis hematochezia or melena. Pain is generalized across the entire abdomen. Review of Systems Constitutional: Denies fever, chills, sweats, weight gain, or loss. HEENT: Negative for migraines, blurred vision or loss, earaches, drainage, tinnitus, oral mucosal lesions, dysphagia, or odynophagia. Cardiac: Hyperlipidemia. Hypertension. Negative for chest pain, arrhythmias, or palpitation. Respiratory: Negative for shortness of breath, hemoptysis, cough, or sputum production. Gastrointestinal: See HPI for pertinent findings. Genitourinary: Negative for hematuria, urgency, frequency, polyuria, dysuria, or penile discharge. Musculoskeletal: Neuropathy. Rheumatoid arthritis. Negative for muscle aches, swelling, arthritis, and arthralgias. Neurologic: Negative for stroke or TIA. Endocrine: Diabetes mellitus. Negative for thyroid problems. Skin: Psoriasis. Negative for rash or itching. Psychiatric: Polysubstance abuse cocaine alcohol. All systems: negative (See HPI) Past Medical History Past Medical History: Heart Failure, Diabetes Mellitus, Hypertension, Pneumonia , Renal Disease, Rheumatoid Arthritis (RA), Skin Disorder Additional Past Medical History / Comment(s): 10/20/16 thought sepsis 2ndary to R middle lobe pne, multiple admissions for dka Other hx: IDDM poorly controlled , DKAs, diabetic gastroparesis, bilateral feet/hands peripheral neuropathy, blood behind both eyes, peptic ulcer disease/duodenal ulcer/gastritis with erosions, previous hospitalization for pulmonary edema and bilateral pleural effusion and subsequent evaluation showed a preserved LV function with an ejection fraction of around 50%, CKD stage III, normocytic chronic anemia, rheumatoid arthritis, DJD, chronic back pain, osteoarthritis-generalized, eczema , psoriasis, ear infections, hx of narcotic abuse, cocaine abuse and alcohol abuse. History of Any Multi-Drug Resistant Organisms: MRSA Year Discovered:: 02/25/08 MDRO Source:: Neck Past Surgical History: Adenoidectomy, Tonsillectomy Additional Past Surgical History / Comment(s): colonoscopy 2009, EGD, lt great toe amp, and part of 2nd toe. Past Anesthesia/Blood Transfusion Reactions: No Reported Reaction Smoking Status: Never smoker - Past Family History Father Family Medical History: Diabetes Mellitus, Hypertension Additional Family Medical History / Comment(s): father at the age of 82 yrs from diabetic complications. Mother Additional Family Medical History / Comment(s): pyschiatric issues. Mother is 78yrs old. Medications and Allergies Home Medications Medication Instructions Recorded Confirmed Type Metoprolol Tartrate [Lopressor] 25 mg PO BID 08/05/16 12/02/16 History traZODone HCL [Desyrel] 200 mg PO HS 08/05/16 12/02/16 History amLODIPine [Norvasc] 5 mg PO DAILY 10/06/16 12/02/16 History Lisinopril [Zestril] 10 mg PO DAILY 10/20/16 12/02/16 History INSULIN LISPRO (humaLOG) [humaLOG See Protocol SQ AC-TID 10/28/16 12/02/16 History (formulary)] Allergies Allergy/AdvReac Type Severity Reaction Status Date / Time No Known Allergies Allergy Verified 12/02/16 14:46 Physical Exam Vitals: Vital Signs Temp Pulse Pulse Resp BP BP Pulse Ox 12/05/16 08:00 97.8 F 90 16 126/64 96 12/05/16 04:00 97.6 F 78 18 157/67 95 12/05/16 00:00 98 F 74 16 180/84 97 12/04/16 20:00 99.2 F 87 14 118/81 99 12/04/16 17:00 79 24 12/04/16 16:00 99.1 F 75 14 137/80 98 12/04/16 15:00 74 10 L 160/91 12/04/16 14:00 74 9 L 146/83 12/04/16 13:00 87 10 L 190/99 99 12/04/16 12:00 99 F 90 10 L 151/87 100 12/04/16 11:00 92 15 169/97 98 12/04/16 10:00 89 13 171/97 100 Intake and Output 12/04/16 12/05/16 12/05/16 22:59 06:59 14:59 Intake Total 850 360 Output Total 730 2500 Balance 120 -2500 360 Intake: IV 250 D5-0.45% NaCl with KCl 200 20Meq/l 1,000 ml @ 150 mls/hr IV .Q6H40M [facility] Rx# :[id number] D5-0.45% NaCl with KCl 50 20Meq/l 1,000 ml @ 50 mls /hr IV .Q20H [facility] Rx#: [id number] Oral 600 360 Output: Urine 730 2500 Other: Voiding Method Indwelling Catheter Indwelling Catheter Weight 68.4 kg General appearance: The patient is alert, oriented, in no acute distress. HET: Head is normocephalic and atraumatic. Pupils are equal and reactive. Oropharynx is clear without lesions. Neck: Supple without lymphadenopathy. Trachea midline. Heart: S1 S2. Regular rate and rhythm. Lungs: No crackles or wheezes are heard. Abdomen: Soft, diffuse mild midepigastric tenderness, nondistended with bowel sounds. No peritoneal signs. No palpable organomegaly or masses. Extremities: Normal skin color and turgor. No cyanosis, rash, ulceration, clubbing, or edema. Radial and pedal pulses are 2/4 bilaterally. Neurological: No focal deficits. Strength and sensation are grossly intact. Results CBC & Chem 7: 12/05/16 06:22 12/05/16 06:22 Labs: Abnormal Lab Results - Last 24 Hours (Table) 12/04/16 12/04/16 12/04/16 Range/Units 14:52 17:43 19:52 RBC (4.30-5.90) m/uL Hgb (13.0-17.5) gm/dL Hct (39.0-53.0) % Sodium 132 L (137-145) mmol/L Carbon Dioxide 21 L (22-30) mmol/L Glucose 114 H (74-99) mg/dL POC Glucose (mg/dL) 187 H 228 H (75-99) mg/dL Calcium 8.2 L (8.4-10.2) mg/dL Phosphorus 2.4 L (2.5-4.5) mg/dL AST (17-59) U/L Total Protein 5.4 L (6.3-8.2) g/dL Albumin 2.8 L (3.5-5.0) g/dL 12/05/16 12/05/16 12/05/16 Range/Units 02:11 02:25 06:22 RBC 3.76 L (4.30-5.90) m/uL Hgb 11.7 L (13.0-17.5) gm/dL Hct 36.7 L (39.0-53.0) % Sodium (137-145) mmol/L Carbon Dioxide (22-30) mmol/L Glucose (74-99) mg/dL POC Glucose (mg/dL) 42 L 73 L (75-99) mg/dL Calcium (8.4-10.2) mg/dL Phosphorus (2.5-4.5) mg/dL AST (17-59) U/L Total Protein (6.3-8.2) g/dL Albumin (3.5-5.0) g/dL 12/05/16 Range/Units 06:22 RBC (4.30-5.90) m/uL Hgb (13.0-17.5) gm/dL Hct (39.0-53.0) % Sodium 136 L (137-145) mmol/L Carbon Dioxide (22-30) mmol/L Glucose 63 L (74-99) mg/dL POC Glucose (mg/dL) (75-99) mg/dL Calcium (8.4-10.2) mg/dL Phosphorus 2.2 L (2.5-4.5) mg/dL AST 15 L (17-59) U/L Total Protein 5.4 L (6.3-8.2) g/dL Albumin 2.9 L (3.5-5.0) g/dL Assessment and Plan (1) Abdominal pain Narrative/Plan: 56-year-old male with a history of uncontrolled diabetes and DKA admitted with DKA, acute on chronic generalized abdominal pain nausea vomiting with history of peptic ulcer disease 2014. Nausea vomiting most likely attributed to uncontrolled diabetes DKA. As for chronic abdominal pain with history of peptic ulcer disease possible recurrent peptic ulcer disease. Gastroparesis cannot be entirely excluded with history of underlying long-standing diabetes mellitus. Status: Acute (2) DKA (diabetic ketoacidoses) Status: Acute Plan: 1. Nexium 20 mg IV daily. 2. EGD evaluation tomorrow. 3. Diet as tolerated. Glycemic control. The fish hatchery inspector has discussed the risks, benefits and alternative therapies for the above-mentioned procedure and for both sedation/analgesia as well as necessary blood product administration, if indicated, as they pertain to this patient. The patient has indicated understanding and acceptance of the risks and procedures discussed. Thank you for this kind referral and the opportunity to participate in the care of your patient. This consultation was discussed with Dr. Johansen. The impression and plan of care have been directed as dictated.
[2016-12-05 12:20] LABS: Glucose,Whole Blood 196 mg/dL (75-99)
[2016-12-05 13:18] VITALS: BMI 22.2
[2016-12-05 16:39] LABS: Glucose,Whole Blood 33 mg/dL (75-99)
[2016-12-05 16:42] LABS: Glucose,Whole Blood 35 mg/dL (75-99)
[2016-12-05 17:03] LABS: Glucose,Whole Blood 34 mg/dL (75-99)
[2016-12-05 17:25] LABS: Glucose,Whole Blood 51 mg/dL (75-99)
[2016-12-05 18:03] LABS: Glucose,Whole Blood 131 mg/dL (75-99)
[2016-12-05 20:46] LABS: Glucose,Whole Blood 374 mg/dL (75-99)
[2016-12-05] MEDS: INSULIN DETEMIR 100 UNIT/ML 10 ML VIAL SQ SCH (20:52)
[2016-12-05] MEDS: MAG HYDROX/AL HYDROX/SIMETH 30 ML CUP PO PRN (23:59)
[2016-12-06 02:02] LABS: Glucose,Whole Blood 281 mg/dL (75-99)
[2016-12-06] MEDS: MORPHINE SULFATE 4 MG/ML SYRINGE IVP SCH ×4 (02:08→13:22)
[2016-12-06 07:15] LABS: Glucose,Whole Blood 450 mg/dL (75-99)
[2016-12-06] MEDS: INSULIN LISPRO (humaLOG) 300 UNIT/3 ML VIAL SQ SCH ×7 (07:39→21:17)
[2016-12-06] MEDS: D5-0.45% NACL WITH KCL 20MEQ/L 1,000 ML IV SCH (07:47)
[2016-12-06] MEDS: SODIUM CHLORIDE 0.9% 1,000 ML IV SCH (07:57)
[2016-12-06] MEDS: GABAPENTIN 100 MG CAP PO SCH ×3 (07:58→21:08)
[2016-12-06] MEDS: METOPROLOL TARTRATE 25 MG TAB PO SCH ×2 (07:58→21:09)
[2016-12-06] MEDS: amLODIPine 5 MG TAB PO SCH (07:59)
[2016-12-06] MEDS: ESOMEPRAZOLE 20 MG in SODIUM CHLORIDE 0.9% 50 ML IVPB SCH (07:59)
[2016-12-06] MEDS: METOCLOPRAMIDE 5 MG TAB PO SCH (07:59)
[2016-12-06] MEDS: LISINOPRIL 10 MG TAB PO SCH (07:59)
[2016-12-06] MEDS: INSULIN DETEMIR 100 UNIT/ML 10 ML VIAL SQ SCH (07:59)
[2016-12-06 09:56] LABS: CH 31.9; CHCM 32.3; HCT 32.6 % (39.0-53.0); HGB 10.6 gm/dL (13.0-17.5); MCH 32.4 pg (25.0-35.0); MCHC 32.6 g/dL (31.0-37.0); MCV 99.4 fL (80.0-100.0); Macrocytosis Slight; Mean Platelet Volume 8.8; RBC 3.27 m/uL (4.30-5.90); RDW 15.5 % (11.5-15.5); WBC 3.3 k/uL (3.8-10.6)
[2016-12-06 10:19] LABS: Glucose,Whole Blood 235 mg/dL (75-99)
[2016-12-06 11:34] LABS: Glucose,Whole Blood 156 mg/dL (75-99)
[2016-12-06] MEDS ORDERED: GLYCOPYRROLATE 0.2 MG/ML 2 ML VIAL ONE (11:47)
[2016-12-06] MEDS ORDERED: PROPOFOL 10 MG/ML 20 ML VIAL IV ONE (11:47)
[2016-12-06] MEDS ORDERED: LIDOCAINE 1% INJ 10MG/ML (20 ML MDV) ONE (11:47)
[2016-12-06] MEDS ORDERED: IV FLUID CONTINUATION 900 ML IV ONE (11:50)
--- NOTE | 2016-12-06 12:06 | P.CN ---
Psychiatric Consult - . Consult date: 12/06/16 Consult:: Attempted to see patient but not in his room. Spoke to LENY Izaguirre, patient is having EGD. She also reports he now has a public guardian. Asked to reconsult when he is medically clear. 12/06/16 12:07
--- NOTE | 2016-12-06 12:30 | P.PCN ---
Date of Procedure: 12/06/16 Preoperative Diagnosis: Postoperative Diagnosis: Procedure(s) Performed: BRIEF HISTORY: Patient is a 56-year-old, pleasant, -Chilean male admitted to the hospital with severe nausea vomiting for the last few days duration. His and scheduled for an upper endoscopy to evaluate further.. PROCEDURE PERFORMED: Esophagogastroduodenoscopy and biopsy. PREOPERATIVE DIAGNOSIS: Persistent nausea/vomiting a few days duration. IV sedation per anesthesia. PROCEDURE: After informed consent was obtained, the patient was brought into the endoscopy unit. IV sedation was administered by Anesthesia under continuous monitoring. Initially the Olympus GIF-140 video endoscope was inserted into the mouth. Esophagus intubated without any difficulty. It was gradually advanced into the stomach and duodenum and carefully examined. The bulb and the second part of the duodenum appeared normal. The scope at this time was withdrawn to the stomach, adequately insufflated with air, and upon careful examination, mucosa of the antrum had mild mottling of the mucosa and biopsies were done from this area. The, body, cardia and the fundus appeared normal. The scope was then withdrawn into the esophagus. The GE junction was located at 39 cm from the incisors. There were linear erosions and ulcerations with exudative noted in the distal esophagus extending from 33-39 cm from the patient D reflux esophagitis The rest of the esophagus appeared normal and the patient tolerated the procedure well. IMPRESSION: 1. Linear erosions, ulcerations with exudates noted in the distal esophagus consistent with severe LA grade D reflux esophagitis. 2. Mild antral gastritis. RECOMMENDATIONS: The findings of this examination were discussed with the patient . He'll be continued on Protonix 40 mg twice daily and Diflucan advance as tolerated. Implants: Indications for Procedure: Operative Findings: Description of Procedure:
[2016-12-06 13:52] LABS: Glucose,Whole Blood 50 mg/dL (75-99)
[2016-12-06 14:05] LABS: Glucose,Whole Blood 51 mg/dL (75-99)
[2016-12-06] MEDS ORDERED: DEXTROSE 10% IV ONE ×2 (14:15→15:53)
[2016-12-06] MEDS ORDERED: WATER IV ONE ×2 (14:15→15:53)
[2016-12-06] MEDS: HYDROmorphone 1 MG/ML 1 ML SYRINGE IVP PRN ×3 (14:20→22:03)
[2016-12-06] MEDS: MAG HYDROX/AL HYDROX/SIMETH 30 ML CUP PO PRN (14:24)
[2016-12-06 14:25] LABS: Glucose,Whole Blood 75 mg/dL (75-99)
--- NOTE | 2016-12-06 15:30 | PN ---
SUBJECTIVE: [id number]-[id number]-old -Turkmen male with DKA, gastroparesis, noncompliance. Refuses insulin tonight. He is not eating much food, but he states he is feeling a little bit better with his abdominal pain. GI: Significant for gastroparesis. Vital signs are stable. CARDIOVASCULAR: S1, S2. Lungs are clear. PSYCH: Flat mood and affect. ASSESSMENT: 1. Diabetic ketoacidosis. 2. Gastroparesis. 3. Noncompliance. 4. Possible depression which bipolar. Psychiatry consult. GI consult. Continue to increase diet. Possible discharge home tomorrow. SENG
[2016-12-06] MEDS ORDERED: MAGNESIUM HYDROXIDE 2,400 MG/10 ML CUP PO PRN (15:39)
[2016-12-06 15:40] LABS: Glucose,Whole Blood 65 mg/dL (75-99)
[2016-12-06] MEDS ORDERED: WATER IV SCH (15:45)
[2016-12-06] MEDS ORDERED: DEXTROSE 10% IV SCH (15:45)
[2016-12-06] MEDS: METOCLOPRAMIDE 10 MG TAB PO SCH ×2 (16:32→21:09)
[2016-12-06] MEDS: SUCRALFATE 1 GM TAB PO SCH ×3 (16:32→22:04)
[2016-12-06] MEDS: DEXTROSE 5%-0.45% NACL 1,000 ML IV SCH (16:33)
[2016-12-06 16:37] LABS: Glucose,Whole Blood 99 mg/dL (75-99)
--- NOTE | 2016-12-06 17:09 | XR ---
EXAMINATION TYPE: XR chest 1V portable DATE OF EXAM: 12/06/2016 COMPARISON: 10/31/2016 HISTORY: Hyperglycemia TECHNIQUE: Single frontal view of the chest is obtained. FINDINGS: There is some mild infiltrate and atelectasis at the lung bases. Heart appears enlarged. T here is no gross heart failure. Bony thorax appears intact. IMPRESSION: There is new mild infiltrate and atelectasis in the lower lobes compared to last exam. N o gross heart failure.
[2016-12-06 17:26] LABS: Glucose,Whole Blood 114 mg/dL (75-99)
[2016-12-06 19:32] LABS: Glucose,Whole Blood 74 mg/dL (75-99)
[2016-12-06 21:18] LABS: Glucose,Whole Blood 175 mg/dL (75-99)
[2016-12-06 21:21] LABS: Glucose,Whole Blood 178 mg/dL (75-99)
[2016-12-07 00:58] LABS: Glucose,Whole Blood 276 mg/dL (75-99)
[2016-12-07] MEDS: INSULIN LISPRO (humaLOG) 300 UNIT/3 ML VIAL SQ SCH ×8 (01:11→21:10)
[2016-12-07] MEDS: HYDROmorphone 1 MG/ML 1 ML SYRINGE IVP PRN ×5 (02:19→21:11)
[2016-12-07] MEDS: SODIUM CHLORIDE 0.9% 1,000 ML IV SCH (05:17)
[2016-12-07 07:17] LABS: Glucose,Whole Blood 212 mg/dL (75-99)
[2016-12-07] MEDS: amLODIPine 5 MG TAB PO SCH (07:47)
[2016-12-07] MEDS: SUCRALFATE 1 GM TAB PO SCH ×4 (07:47→21:07)
[2016-12-07] MEDS: GABAPENTIN 100 MG CAP PO SCH ×3 (07:47→21:07)
[2016-12-07] MEDS: METOPROLOL TARTRATE 25 MG TAB PO SCH ×2 (07:48→21:07)
[2016-12-07] MEDS: INSULIN DETEMIR 100 UNIT/ML 10 ML VIAL SQ SCH (07:48)
[2016-12-07] MEDS: METOCLOPRAMIDE 10 MG TAB PO SCH ×3 (07:48→21:07)
[2016-12-07] MEDS: LISINOPRIL 10 MG TAB PO SCH (07:48)
[2016-12-07] MEDS: ESOMEPRAZOLE 20 MG in SODIUM CHLORIDE 0.9% 50 ML IVPB SCH (09:06)
[2016-12-07] MEDS: DEXTROSE 5%-0.45% NACL 1,000 ML IV SCH (12:00)
[2016-12-07 12:25] LABS: Glucose,Whole Blood 167 mg/dL (75-99)
[2016-12-07] MEDS: MAG HYDROX/AL HYDROX/SIMETH 30 ML CUP PO PRN (14:52)
--- NOTE | 2016-12-07 16:52 | PN ---
DATE OF SERVICE: 12/07/2016 This patient is a pleasant 56-year-old -Gabonese male admitted to the hospital with nausea, vomiting. He had an upper endoscopy done yesterday which showed severe grade LA grade D reflux esophagitis, presently on Nexium 40 mg b.i.d. and doing much better. The nausea and vomiting have resolved. On physical examination, appears comfortable; no apparent distress. Vital signs are stable. Blood pressure 128/71, pulse rate 95, temperature 99.2. HEENT EXAMINATION: Unremarkable. Conjunctivae pink. Sclerae anicteric. Oral cavity no lesions. NECK: No JVD or lymph node enlargement. Chest was clear to auscultation. HEART: Regular rate and rhythm. ABDOMEN: Soft. Bowel sounds are positive. No organomegaly. EXTREMITIES: No pedal edema. SKIN: No rashes. NEURO: Alert and oriented x3. No focal deficits. LABS YESTERDAY: WBC 3.3, hemoglobin 10.6. Platelets are normal. IMPRESSION: 1. Nausea and vomiting secondary to severe reflux esophagitis, presently on Protonix 40 mg q.12 hours as well as Reglan as needed. Doing well. 2. Diabetes mellitus. 3. Hypertension. RECOMMENDATIONS: 1. Continue with IV proton pump inhibitors. 2. Small frequent meals. 3. Briefly educated the patient about anti-reflux measures. Will follow closely during his hospital stay. Thank you for this consultation. SENG
[2016-12-07] MEDS ORDERED: DEXTROSE 50%-WATER 50 ML SYRINGE IVP STA (17:00)
[2016-12-07 17:12] LABS: Glucose,Whole Blood 21 mg/dL (75-99)
[2016-12-07 17:12] LABS: Glucose,Whole Blood 21 mg/dL (75-99)
[2016-12-07 17:21] LABS: Glucose,Whole Blood 86 mg/dL (75-99)
[2016-12-07 20:30] LABS: Glucose,Whole Blood 263 mg/dL (75-99)
[2016-12-08 02:17] LABS: Glucose,Whole Blood 117 mg/dL (75-99)
[2016-12-08] MEDS: SODIUM CHLORIDE 0.9% 1,000 ML IV SCH ×2 (03:51→21:29)
[2016-12-08] MEDS: HYDROmorphone 1 MG/ML 1 ML SYRINGE IVP PRN ×4 (03:52→21:08)
[2016-12-08 07:03] LABS: Glucose,Whole Blood 206 mg/dL (75-99)
[2016-12-08] MEDS: INSULIN LISPRO (humaLOG) 300 UNIT/3 ML VIAL SQ SCH ×7 (07:55→21:30)
[2016-12-08] MEDS: amLODIPine 5 MG TAB PO SCH (07:56)
[2016-12-08] MEDS: METOPROLOL TARTRATE 25 MG TAB PO SCH ×2 (07:56→21:28)
[2016-12-08] MEDS: SUCRALFATE 1 GM TAB PO SCH ×4 (07:56→21:28)
[2016-12-08] MEDS: METOCLOPRAMIDE 10 MG TAB PO SCH ×3 (07:56→21:28)
[2016-12-08] MEDS: INSULIN DETEMIR 100 UNIT/ML 10 ML VIAL SQ SCH (07:56)
[2016-12-08] MEDS: LISINOPRIL 10 MG TAB PO SCH (07:56)
[2016-12-08] MEDS: GABAPENTIN 100 MG CAP PO SCH ×3 (07:57→21:28)
[2016-12-08] MEDS: ESOMEPRAZOLE 20 MG in SODIUM CHLORIDE 0.9% 50 ML IVPB SCH (10:29)
[2016-12-08] MEDS: DEXTROSE 5%-0.45% NACL 1,000 ML IV SCH (10:32)
[2016-12-08 11:46] LABS: Glucose,Whole Blood 164 mg/dL (75-99)
--- NOTE | 2016-12-08 12:46 | PN ---
SUBJECTIVE: 56-year-old -Mozamb[place] male with gastroparesis, increased abdominal pain and vomiting, diabetic ketoacidosis. The patient continues to improve from a clinical standpoint with diabetic control. Gastroparesis and severe esophagitis being treated with Carafate and Protonix. Patient apparently had increased abdominal pain but he ate so much food yesterday and he is feeling better with the Carafate. He overdid it with his diet. He is sitting up in bed. CARDIOVASCULAR: S1/S2. LUNGS: Clear. GI: Soft. Diffuse tenderness. PSYCH: Fair mood and affect. Labs were reviewed. ASSESSMENT AND PLAN: Continue with Protonix and Carafate. Slow improvement with his diet. Continue with diabetic control, ( ) the next 24-48 hours for discharge. MTDD
[2016-12-08 16:40] LABS: Glucose,Whole Blood 28 mg/dL (75-99)
[2016-12-08 16:40] LABS: Glucose,Whole Blood 25 mg/dL (75-99)
[2016-12-08] MEDS ORDERED: DEXTROSE 4 GM CHEWABLE ONE ×4 (16:48→17:05)
[2016-12-08 16:50] LABS: Glucose,Whole Blood 23 mg/dL (75-99)
[2016-12-08] MEDS ORDERED: GLUCAGON 1 MG/ML VIAL ONE (16:56)
[2016-12-08 17:05] LABS: Glucose,Whole Blood 35 mg/dL (75-99)
[2016-12-08 17:05] LABS: Glucose,Whole Blood 37 mg/dL (75-99)
[2016-12-08 17:05] LABS: Glucose,Whole Blood 27 mg/dL (75-99)
[2016-12-08] MEDS ORDERED: DEXTROSE 50%-WATER 50 ML SYRINGE IVP ONE (17:15)
[2016-12-08 17:23] LABS: Glucose,Whole Blood 74 mg/dL (75-99)
[2016-12-08 17:43] LABS: Glucose,Whole Blood 92 mg/dL (75-99)
[2016-12-08 20:29] LABS: Glucose,Whole Blood 273 mg/dL (75-99)
[2016-12-09 02:20] LABS: Glucose,Whole Blood 157 mg/dL (75-99)
[2016-12-09] MEDS: DEXTROSE 5%-0.45% NACL 1,000 ML IV SCH (04:18)
[2016-12-09 07:15] LABS: Glucose,Whole Blood 335 mg/dL (75-99)
[2016-12-09 07:34] VITALS: BP 159/92; PULSE 80; RESP 18; TEMP 97.3
[2016-12-09] MEDS: LISINOPRIL 10 MG TAB PO SCH (07:52)
[2016-12-09] MEDS: amLODIPine 5 MG TAB PO SCH (07:52)
[2016-12-09] MEDS: GABAPENTIN 100 MG CAP PO SCH (07:52)
[2016-12-09] MEDS: SUCRALFATE 1 GM TAB PO SCH ×2 (07:52→11:55)
[2016-12-09] MEDS: INSULIN DETEMIR 100 UNIT/ML 10 ML VIAL SQ SCH (07:53)
[2016-12-09] MEDS: INSULIN LISPRO (humaLOG) 300 UNIT/3 ML VIAL SQ SCH ×4 (07:53→13:04)
[2016-12-09] MEDS: METOCLOPRAMIDE 10 MG TAB PO SCH (07:53)
[2016-12-09] MEDS: METOPROLOL TARTRATE 25 MG TAB PO SCH (07:53)
[2016-12-09] MEDS: HYDROmorphone 1 MG/ML 1 ML SYRINGE IVP PRN ×2 (07:54→11:55)
[2016-12-09] MEDS: ESOMEPRAZOLE 20 MG in SODIUM CHLORIDE 0.9% 50 ML IVPB SCH (08:41)
[2016-12-09 11:24] LABS: Glucose,Whole Blood 152 mg/dL (75-99)
--- NOTE | 2016-12-09 11:41 | PN ---
SUBJECTIVE: 56-year-old -Ukrainian male pulled out his internal jugular line today. He had no IV access. His sugar dropped to 36 . He was given D5 amp and oral sugar medication by nurse or something IM to correct this. She called me six hours later without telling me the sugar dropped so low for six hours. Ordered a stat consult for a central line with polishing pad mounter. He is still complaining of abdominal pain. gastroparesis, inability to eat, diabetic ketoacidosis. He will be transferred down to [facility] tomorrow due to severe gastroparesis and inability to fix this with our current GI physicians. SENG
--- NOTE | 2016-12-09 12:41 | P.CON ---
Consult Note - . Consult date: 12/09/16 Assessment/Plan:: Medical - Consult Note, pulmonary/critical care Patient Name: Rigo Krueger Date of : 60 Patient Status: Inpatient Attending Provider: Nimesh De Luna Date: 12/09/16 09:58 History of Present Illness - Reason for Consult Consult date: 12/05/16 Crit critical care management, evaluate for central line Requesting physician: Nimesh De Luna - History of Present Illness 55-year-old gentleman with a past medical history of uncontrolled diabetes mellitus, polysubstance abuse including cocaine and alcohol, hyperlipidemia, chronic abdominal and back pain, GERD, peptic ulcer disease, hypertension, pneumonia, rheumatoid arthritis, neuropathy and psoriasis. Admitted with DKA and acute on chronic abdominal pain nausea vomiting. Multiple hospital admissions for DKA one within the last week. Consultation requested for above. Evaluated by general surgery 1 month ago or abdominal pain with plans for EGD but not performed. EGD December [address] Olivier with findings of duodenal ulcer between first and second portion, gastritis few small erosions. Anesthesia able to obtain a small peripheral IV patient is reluctant for central line placement and wants to hold onto it Hemoglobin 11.7. White count 7.1. Positive acetone. Liver function tests normal. No reports of gross hematemesis hematochezia or melena. Pain is generalized across the entire abdomen. Review of Systems Constitutional: Denies fever, chills, sweats, weight gain, or loss. HEENT: Negative for migraines, blurred vision or loss, earaches, drainage, tinnitus, oral mucosal lesions, dysphagia, or odynophagia. Cardiac: Hyperlipidemia. Hypertension. Negative for chest pain, arrhythmias, or palpitation. Respiratory: Negative for shortness of breath, hemoptysis, cough, or sputum production. Gastrointestinal: See HPI for pertinent findings. Genitourinary: Negative for hematuria, urgency, frequency, polyuria, dysuria, or penile discharge. Musculoskeletal: Neuropathy. Rheumatoid arthritis. Negative for muscle aches, swelling, arthritis, and arthralgias. Neurologic: Negative for stroke or TIA. Endocrine: Diabetes mellitus. Negative for thyroid problems. Skin: Psoriasis. Negative for rash or itching. Psychiatric: Polysubstance abuse cocaine alcohol. All systems: negative (See HPI) Past Medical History Past Medical History: Heart Failure, Diabetes Mellitus, Hypertension, Pneumonia , Renal Disease, Rheumatoid Arthritis (RA), Skin Disorder Additional Past Medical History / Comment(s): 10/20/16 thought sepsis 2ndary to R middle lobe pne, multiple admissions for dka Other hx: IDDM poorly controlled , DKAs, diabetic gastroparesis, bilateral feet/hands peripheral neuropathy, blood behind both eyes, peptic ulcer disease/duodenal ulcer/gastritis with erosions, previous hospitalization for pulmonary edema and bilateral pleural effusion and subsequent evaluation showed a preserved LV function with an ejection fraction of around 50%, CKD stage III, normocytic chronic anemia, rheumatoid arthritis, DJD, chronic back pain, osteoarthritis-generalized, eczema , psoriasis, ear infections, hx of narcotic abuse, cocaine abuse and alcohol abuse. History of Any Multi-Drug Resistant Organisms: MRSA Year Discovered:: 02/25/08 MDRO Source:: Neck Past Surgical History: Adenoidectomy, Tonsillectomy Additional Past Surgical History / Comment(s): colonoscopy 2008, EGD, lt great toe amp, and part of 2nd toe. Past Anesthesia/Blood Transfusion Reactions: No Reported Reaction Smoking Status: Never smoker - Past Family History Father Family Medical History: Diabetes Mellitus, Hypertension Additional Family Medical History / Comment(s): father at the age of 82 yrs from diabetic complications. Mother Additional Family Medical History / Comment(s): pyschiatric issues. Mother is 78yrs old. Medications and Allergies Home Medications Medication Instructions Recorded Confirmed Type Metoprolol Tartrate [Lopressor] 25 mg PO BID 08/05/16 12/02/16 History traZODone HCL [Desyrel] 200 mg PO HS 08/05/16 12/02/16 History amLODIPine [Norvasc] 5 mg PO DAILY 10/06/16 12/02/16 History Lisinopril [Zestril] 10 mg PO DAILY 10/20/16 12/02/16 History INSULIN LISPRO (humaLOG) [humaLOG See Protocol SQ AC-TID 10/28/16 12/02/16 History (formulary)] Allergies Allergy/AdvReac Type Severity Reaction Status Date / Time No Known Allergies Allergy Verified 12/02/16 14:46 Physical Exam Vitals: Vital Signs Temp Pulse Pulse Resp BP BP Pulse Ox 12/05/16 08:00 97.8 F 90 16 126/64 96 12/05/16 04:00 97.6 F 78 18 157/67 95 12/05/16 00:00 98 F 74 16 180/84 97 12/04/16 20:00 99.2 F 87 14 118/81 99 12/04/16 17:00 79 24 12/04/16 16:00 99.1 F 75 14 137/80 98 12/04/16 15:00 74 10 L 160/91 12/04/16 14:00 74 9 L 146/83 12/04/16 13:00 87 10 L 190/99 99 12/04/16 12:00 99 F 90 10 L 151/87 100 12/04/16 11:00 92 15 169/97 98 12/04/16 10:00 89 13 171/97 100 Intake and Output 12/04/16 12/05/16 12/05/16 22:59 06:59 14:59 Intake Total 850 360 Output Total 730 2500 Balance 120 -2500 360 Intake: IV 250 D5-0.45% NaCl with KCl 200 20Meq/l 1,000 ml @ 150 mls/hr IV .Q6H40M [facility] Rx# :[id number] D5-0.45% NaCl with KCl 50 20Meq/l 1,000 ml @ 50 mls /hr IV .Q20H [facility] Rx#: [id number] Oral 600 360 Output: Urine 730 2500 Other: Voiding Method Indwelling Catheter Indwelling Catheter Weight 68.4 kg IVs being hep-locked General appearance: The patient is alert, oriented, in no acute distress. HET: Head is normocephalic and atraumatic. Pupils are equal and reactive. Oropharynx is clear without lesions. Neck: Supple without lymphadenopathy. Trachea midline. Heart: S1 S2. Regular rate and rhythm. Lungs: No crackles or wheezes are heard. Abdomen: Soft, diffuse mild midepigastric tenderness, nondistended with bowel sounds. No peritoneal signs. No palpable organomegaly or masses. Extremities: Normal skin color and turgor. No cyanosis, rash, ulceration, clubbing, or edema. Radial and pedal pulses are 2/4 bilaterally. Neurological: No focal deficits. Strength and sensation are grossly intact. Results CBC & Chem 7: 12/05/16 06:22 12/05/16 06:22 Labs: Abnormal Lab Results - Last 24 Hours (Table) 12/04/16 12/04/16 12/04/16 Range/Units 14:52 17:43 19:52 RBC (4.30-5.90) m/uL Hgb (13.0-17.5) gm/dL Hct (39.0-53.0) % Sodium 132 L (137-145) mmol/L Carbon Dioxide 21 L (22-30) mmol/L Glucose 114 H (74-99) mg/dL POC Glucose (mg/dL) 187 H 228 H (75-99) mg/dL Calcium 8.2 L (8.4-10.2) mg/dL Phosphorus 2.4 L (2.5-4.5) mg/dL AST (17-59) U/L Total Protein 5.4 L (6.3-8.2) g/dL Albumin 2.8 L (3.5-5.0) g/dL 12/05/16 12/05/16 12/05/16 Range/Units 02:11 02:25 06:22 RBC 3.76 L (4.30-5.90) m/uL Hgb 11.7 L (13.0-17.5) gm/dL Hct 36.7 L (39.0-53.0) % Sodium (137-145) mmol/L Carbon Dioxide (22-30) mmol/L Glucose (74-99) mg/dL POC Glucose (mg/dL) 42 L 73 L (75-99) mg/dL Calcium (8.4-10.2) mg/dL Phosphorus (2.5-4.5) mg/dL AST (17-59) U/L Total Protein (6.3-8.2) g/dL Albumin (3.5-5.0) g/dL 12/05/16 Range/Units 06:22 RBC (4.30-5.90) m/uL Hgb (13.0-17.5) gm/dL Hct (39.0-53.0) % Sodium 136 L (137-145) mmol/L Carbon Dioxide (22-30) mmol/L Glucose 63 L (74-99) mg/dL POC Glucose (mg/dL) (75-99) mg/dL Calcium (8.4-10.2) mg/dL Phosphorus 2.2 L (2.5-4.5) mg/dL AST 15 L (17-59) U/L Total Protein 5.4 L (6.3-8.2) g/dL Albumin 2.9 L (3.5-5.0) g/dL Assessment and Plan (1) Abdominal pain Narrative/Plan: 56-year-old male with a history of uncontrolled diabetes and DKA admitted with DKA, acute on chronic generalized abdominal pain nausea vomiting with history of peptic ulcer disease 2014. Nausea vomiting most likely attributed to uncontrolled diabetes DKA. As for chronic abdominal pain with history of peptic ulcer disease possible recurrent peptic ulcer disease. (2) DKA (diabetic ketoacidoses) Status: Acute #3 gastroparesis Plan: Will observe for now as per request of the patient and staff will hold on doing the central line as patient does have a small peripheral IV access patient likely will be discharged soon we'll be available as needed
== END 2016-12-09 14:43 | disposition short-term general hospital (02) | DRG 638 ==
LOC: EC 14:23 → 6ICU 17:13 → EEVIPCON 17:13 → 6SEL 12-03 11:36 → 6ICU 12-04 01:17 → 6SEL 12-04 22:53 → 4MS4W 12-05 22:07
PROVIDERS: ADMIT Family Medicine; ATTEND Family Medicine
PROC: 0DB78ZX Excision of Stomach, Pylorus, Via Natural or Artificial Opening Endoscopic, Diagnostic (ICD-10-PCS; principal; 2016-12-06 13:35)
DX: E10.10 Type 1 diabetes mellitus with ketoacidosis without coma (principal); E87.1 Hypo-osmolality and hyponatremia; E44.0 Moderate protein-calorie malnutrition; I13.0 Hypertensive heart and chronic kidney disease with heart failure and stage 1 through stage 4 chronic kidney disease, or unspecified chronic kidney disease; K22.10 Ulcer of esophagus without bleeding; K31.84 Gastroparesis; E87.5 Hyperkalemia; I50.9 Heart failure, unspecified; E10.22 Type 1 diabetes mellitus with diabetic chronic kidney disease; E10.40 Type 1 diabetes mellitus with diabetic neuropathy, unspecified; N18.3 Chronic kidney disease, stage 3 (moderate); E10.43 Type 1 diabetes mellitus with diabetic autonomic (poly)neuropathy; M06.9 Rheumatoid arthritis, unspecified; F14.10 Cocaine abuse, uncomplicated; F11.10 Opioid abuse, uncomplicated; F10.10 Alcohol abuse, uncomplicated; E78.5 Hyperlipidemia, unspecified; K21.0 Gastro-esophageal reflux disease with esophagitis; F32.9 Major depressive disorder, single episode, unspecified; G89.29 Other chronic pain; D64.9 Anemia, unspecified; M19.91 Primary osteoarthritis, unspecified site; M54.9 Dorsalgia, unspecified; K29.60 Other gastritis without bleeding; L40.9 Psoriasis, unspecified; Z79.4 Long term (current) use of insulin; Z79.899 Other long term (current) drug therapy; Z91.19 Patient's noncompliance with other medical treatment and regimen; Z86.14 Personal history of Methicillin resistant Staphylococcus aureus infection; Z87.11 Personal history of peptic ulcer disease; Z83.3 Family history of diabetes mellitus
CPT/HCPCS: 36415; 43239; 71010; 80048; 80051; 80053; 81003; 82009; 82565; 82803; 82947; 83036; 83605; 83735; 84100; 84520; 85025; 85027; 88305; 88342; 96361; 96372; 96374; 99291

== ENCOUNTER 2016-12-17 19:19 | Observation (INO) | payer OTHER ==
[2016-12-17 19:33] LABS: Glucose,Whole Blood 94 mg/dL (75-99)
[2016-12-17] MEDS ORDERED: SODIUM CHLORIDE 0.9% 500 ML IV STA (19:39)
[2016-12-17] MEDS ORDERED: SODIUM CHLORIDE 0.9% 1,000 ML IV STA (19:39)
[2016-12-17] MEDS ORDERED: ONDANSETRON 4 MG/2 ML VIAL IVP STA (19:39)
--- NOTE | 2016-12-17 19:46 | ED ---
General Adult HPI - General Chief complaint: Recheck/Abnormal Lab/Rx Stated complaint: Hypoglycemia Time Seen by Provider: 12/17/16 19:29 Source: EMS Mode of arrival: EMS - History of Present Illness Initial comments: Planing about burning sensation in the stomach, been nauseous been for, is quite awake with his complaints he just feeling well no [place] complaints he was recently discharged from the hospital in [place] some stomach problems, he does not have a discharge papers does not have list of current medications. Denies any chest pain no shortness of breath does complain about burning sensation in the abdomen - Related Data Home Medications Medication Instructions Recorded Confirmed Metoprolol Tartrate [Lopressor] 25 mg PO BID 08/05/16 12/17/16 traZODone HCL [Desyrel] 200 mg PO HS 08/05/16 12/17/16 amLODIPine [Norvasc] 5 mg PO DAILY 10/06/16 12/17/16 Lisinopril [Zestril] 10 mg PO DAILY 10/20/16 12/17/16 INSULIN LISPRO (humaLOG) [humaLOG See Protocol SQ AC-TID 10/28/16 12/17/16 (formulary)] Previous Rx's Medication Instructions Recorded Folic Acid 1 mg PO DAILY #30 tablet 07/16/16 Multivitamins, Thera [Multivitamin 1 tab PO DAILY #30 tablet 07/16/16 (formulary)] Thiamine [Vitamin B-1] 100 mg PO DAILY #30 tablet 07/16/16 Polyethylene Glycol 3350 [Miralax] 17 gm PO DAILY PRN #30 packet 07/25/16 Calcium Carbonate [Tums] 500 mg PO TID #1 chew 09/02/16 Gabapentin [Neurontin] 100 mg PO TID #60 cap 09/02/16 Metoclopramide HCl [Reglan] 5 mg PO TID #30 tablet 10/07/16 Sucralfate [Carafate] 1 gm PO ACHS #120 tablet 10/12/16 Insulin Detemir [Levemir] 15 unit SQ HS #0 vial 10/29/16 Omeprazole [PriLOSEC] 20 mg PO AC-BID #60 cap 10/29/16 Acetaminophen Tab [Tylenol] 650 mg PO Q6HR PRN tab 11/12/16 INSULIN LISPRO (humaLOG) [humaLOG 5 unit SQ AC-TID #1 vial 11/21/16 (formulary)] LORazepam [Ativan] 0.5 mg PO Q8HR PRN #10 tab 11/21/16 Pantoprazole [Protonix] 40 mg PO AC-BID #60 tab 11/21/16 Allergies Allergy/AdvReac Type Severity Reaction Status Date / Time No Known Allergies Allergy Verified 12/17/16 19:22 Review of Systems ROS Statement: Those systems with pertinent positive or pertinent negative responses have been documented in the HPI. ROS Other: All systems not noted in ROS Statement are negative. Past Medical History Past Medical History: Heart Failure, Diabetes Mellitus, Hypertension, Pneumonia , Renal Disease, Rheumatoid Arthritis (RA), Skin Disorder Additional Past Medical History / Comment(s): 10/20/16 thought sepsis 2ndary to R middle lobe pne, multiple admissions for dka Other hx: IDDM poorly controlled , DKAs, diabetic gastroparesis, bilateral feet/hands peripheral neuropathy, blood behind both eyes, peptic ulcer disease/duodenal ulcer/gastritis with erosions, previous hospitalization for pulmonary edema and bilateral pleural effusion and subsequent evaluation showed a preserved LV function with an ejection fraction of around 50%, CKD stage III, normocytic chronic anemia, rheumatoid arthritis, DJD, chronic back pain, osteoarthritis-generalized, eczema , psoriasis, ear infections, hx of narcotic abuse, cocaine abuse and alcohol abuse. History of Any Multi-Drug Resistant Organisms: MRSA Date of last positivie culture/infection: 02/25/08 MDRO Source:: Neck Past Surgical History: Adenoidectomy, Tonsillectomy Additional Past Surgical History / Comment(s): colonoscopy 2009, EGD, lt great toe amp, and part of 2nd toe. Past Anesthesia/Blood Transfusion Reactions: No Reported Reaction Past Psychological History: No Psychological Hx Reported Smoking Status: Never smoker - Past Family History Father Family Medical History: Diabetes Mellitus, Hypertension Additional Family Medical History / Comment(s): father at the age of 82 yrs from diabetic complications. Mother Additional Family Medical History / Comment(s): pyschiatric issues. Mother is 78yrs old. General Exam - General Exam Comments Initial Comments: General: The patient is awake and alert, in no distress, and does not appear acutely ill. Skin: Skin is warm and dry and no rashes or lesions are noted. Eye: Pupils are equal, round and reactive to light, extra-ocular movements are intact; there is normal conjunctiva bilaterally. Ears, nose, mouth and throat: There are moist mucous membranes and no oral lesions. Neck: The neck is supple, there is no tenderness or JVD. Cardiovascular: There is a regular rate and rhythm. No murmur, rub or gallop is appreciated. Respiratory: To auscultation bilateral, no wheezing no rhonchi no distress respiratory mcmillan noticed Gastrointestinal: Soft, non-distended, non-tender abdomen without masses or organomegaly noted. There is no rebound or guarding present. Bowel sounds are unremarkable. Back: There is no tenderness to palpation in the midline. There is no obvious deformity. Musculoskeletal: Normal ROM, no tenderness, There is no pedal edema. There is no calf tenderness or swelling. No cords were appreciated. Neurological: CN II-XII intact, Cranial nerves III through XII are intact. There are no obvious motor or sensory deficits. Coordination appears grossly intact. Speech is normal. Psychiatric: Cooperative, appropriate mood & affect, normal judgment. Course Vital Signs 12/17/16 19:22 Temperature 97.5 F L Pulse Rate 65 Respiratory 16 Rate Blood Pressure 172/70 O2 Sat by Pulse 98 Oximetry She was reassessed at 2100 He looked quite confused and at the maintenance in time lab called us as his sugar was 32 he do not remember how much insulin he gave him and worked his stools his CBC and other parts of the comprehensive metabolic panel all negative D50 was given immediately come get him started on a D10 through 12 don' t know how much insulin he gave himself an assisted of confusion head CT is normal Medical Decision Making - Lab Data Result diagrams: 12/17/16 20:15 12/17/16 20:15 Lab Results 12/17/16 12/17/16 12/17/16 Range/Units 19:30 20:15 20:15 WBC 5.1 (3.8-10.6) k/uL RBC 3.88 L (4.30-5.90) m/uL Hgb 12.2 L (13.0-17.5) gm/dL Hct 38.3 L (39.0-53.0) % MCV 98.6 (80.0-100.0) fL MCH 31.4 (25.0-35.0) pg MCHC 31.8 (31.0-37.0) g/dL RDW 15.5 (11.5-15.5) % Plt Count 422 (150-450) k/uL Neutrophils % 70 % Lymphocytes % 18 % Monocytes % 7 % Eosinophils % 1 % Basophils % 1 % Neutrophils # 3.5 (1.3-7.7) k/uL Lymphocytes # 0.9 L (1.0-4.8) k/uL Monocytes # 0.4 (0-1.0) k/uL Eosinophils # 0.1 (0-0.7) k/uL Basophils # 0.0 (0-0.2) k/uL Macrocytosis Slight Sodium 139 (137-145) mmol/L Potassium 4.6 (3.5-5.1) mmol/L Chloride 105 (98-107) mmol/L Carbon Dioxide 25 (22-30) mmol/L Anion Gap 9 mmol/L BUN 11 (9-20) mg/dL Creatinine 0.88 (0.66-1.25) mg/dL Est GFR (MDRD) Af Amer >60 (>60 ml/min/1.73 sqM) Est GFR (MDRD) Non-Af >60 (>60 ml/min/1.73 sqM) Glucose 32 L* (74-99) mg/dL POC Glucose (mg/dL) 94 (75-99) mg/dL POC Glu Salt Maker ID Mary Anne, Thu Calcium 8.9 (8.4-10.2) mg/dL Total Bilirubin 0.8 (0.2-1.3) mg/dL AST 154 H (17-59) U/L ALT 77 H (21-72) U/L Alkaline Phosphatase 119 (38-126) U/L Total Protein 7.0 (6.3-8.2) g/dL Albumin 3.8 (3.5-5.0) g/dL Amylase 77 (30-110) U/L Lipase 47 (23-300) U/L Disposition Clinical Impression: Altered mental status, Hypoglycemia Disposition: ADMITTED IP TO THIS HOSP Condition: Good Referrals: Nimesh De Luna MD [Primary Care Provider] - 1-2 days
[2016-12-17 20:40] LABS: Basophils % (A) 1 %; CH 31.7; CHCM 32.3; Eosinophils # (A) 0.1 k/uL (0-0.7); Eosinophils % (A) 1 %; HCT 38.3 % (39.0-53.0); HDW 2.41; HGB 12.2 gm/dL (13.0-17.5); Luc # (Auto) 0.12; Luc % (Auto) 2; Lymphocytes # (A) 0.9 k/uL (1.0-4.8); Lymphocytes % (A) 18 %; MCH 31.4 pg (25.0-35.0); MCHC 31.8 g/dL (31.0-37.0); MCV 98.6 fL (80.0-100.0); Macrocytosis Slight; Mean Platelet Volume 7.3; Monocytes # (A) 0.4 k/uL (0-1.0); Monocytes % (A) 7 %; Neutrophils # (A) 3.5 k/uL (1.3-7.7); Neutrophils % (A) 70 %; RBC 3.88 m/uL (4.30-5.90); RDW 15.5 % (11.5-15.5); WBC 5.1 k/uL (3.8-10.6); WBC (Perox) 5.46
[2016-12-17 20:52] LABS: ALT 77 U/L (21-72); AST 154 U/L (17-59); Alkaline Phosphatase 119 U/L (38-126); Amylase 77 U/L (30-110); Anion Gap 9 mmol/L; Blood Urea Nitrogen 11 mg/dL (9-20); Calcium 8.9 mg/dL (8.4-10.2); Carbon Dioxide 25 mmol/L (22-30); Chloride 105 mmol/L (98-107); Non-African American GFR(MDRD) >60 (>60 ml/min/1.73 sqM); Potassium 4.6 mmol/L (3.5-5.1); Sodium 139 mmol/L (137-145); Total Bilirubin 0.8 mg/dL (0.2-1.3)
--- NOTE | 2016-12-17 20:53 | CT ---
EXAMINATION TYPE: CT brain wo con DATE OF EXAM: 12/17/2016 COMPARISON: 08/31/2016 HISTORY: hypoglycemia, weakness CT DLP: 1081.6 mGycm Automated exposure control for dose reduction was used. FINDINGS: There is no mass effect nor midline shift. There is no sign of intracranial hemorrhage. There is mild cerebral cortical atrophy. Calvarium is intact. IMPRESSION: MILD ATROPHY. OTHERWISE NEGATIVE EXAM. NO ADVERSE CHANGE COMPARED TO OLD EXAM.
[2016-12-17 21:01] LABS: Glucose 32 mg/dL (74-99)
[2016-12-17] MEDS ORDERED: DEXTROSE 50%-WATER 50 ML SYRINGE IVP STA (21:03)
--- NOTE | 2016-12-17 21:07 | XR ---
EXAMINATION TYPE: XR KUB DATE OF EXAM: 12/17/2016 COMPARISON: NONE HISTORY: Abdominal pain TECHNIQUE: 2 views FINDINGS: Bowel gas pattern is normal. There is no sign of intestinal obstruction or pneumoperitoneum . Fecal pattern is normal. There is no sign of a mass. Lung bases are clear. IMPRESSION: Nonacute abdomen.
[2016-12-17] MEDS ORDERED: NALOXONE 0.4 MG/ML 1 ML VIAL IV PRN (21:11)
[2016-12-17] MEDS ORDERED: ONDANSETRON 4 MG/2 ML VIAL IVP PRN (21:11)
[2016-12-17] MEDS ORDERED: LORazepam 0.5 MG TAB PO PRN (21:17)
[2016-12-17] MEDS ORDERED: POLYETHYLENE GLYCOL 3350 17 GM POWD.PACK PO PRN (21:17)
[2016-12-17 21:28] LABS: Appearance,Urine Clear (Clear); Bacteria,Urine Rare /hpf; Bilirubin,Urine Negative (Negative); Glucose,Urine (UA) Trace (Negative); Ketones,Urine Negative (Negative); Leukocyte Esterase,Urine Negative (Negative); Nitrite,Urine Negative (Negative); PH, Urine 6.5 (5.0-8.0); Particle Count 125; Protein,Urine Negative (Negative); Specific Gravity,Urine 1.003 (1.001-1.035); UA Billing (MACRO vs. MICRO) MICRO; Urobilinogen,Urine <2.0 mg/dL (<2.0); WBC,Urine 1 /hpf (0-5)
[2016-12-17] MEDS: DEXTROSE 5%-0.9% NACL 1,000 ML IV SCH (21:30)
[2016-12-18] MEDS: GABAPENTIN 100 MG CAP PO SCH ×3 (00:02→17:28)
[2016-12-18] MEDS: METOCLOPRAMIDE 5 MG TAB PO SCH ×3 (00:02→17:28)
[2016-12-18] MEDS: CALCIUM CARBONATE 500 MG CHEWABLE PO SCH ×3 (00:02→13:27)
[2016-12-18] MEDS: ACETAMINOPHEN TAB 325 MG TAB PO PRN ×2 (00:04→08:37)
[2016-12-18 00:12] LABS: Glucose,Whole Blood 268 mg/dL (75-99)
[2016-12-18 02:09] LABS: Glucose,Whole Blood 476 mg/dL (75-99)
[2016-12-18] MEDS ORDERED: SODIUM CHLORIDE 0.9% 1,000 ML IV SCH (02:30)
[2016-12-18] MEDS: INSULIN LISPRO (humaLOG) 300 UNIT/3 ML VIAL SQ SCH ×4 (03:33→17:50)
[2016-12-18 04:29] LABS: Glucose,Whole Blood 271 mg/dL (75-99)
[2016-12-18 05:56] LABS: Glucose,Whole Blood 43 mg/dL (75-99)
[2016-12-18 06:18] LABS: Glucose,Whole Blood 54 mg/dL (75-99)
[2016-12-18 06:48] LABS: Glucose,Whole Blood 55 mg/dL (75-99)
[2016-12-18 07:04] LABS: Glucose,Whole Blood 66 mg/dL (75-99)
[2016-12-18] MEDS ORDERED: PANTOPRAZOLE 40 MG TABLET PO SCH (07:30)
[2016-12-18] MEDS ORDERED: NON-FORMULARY DRUG (Omeprazole 20 MG) PO SCH (07:30)
[2016-12-18 07:33] LABS: Hemoglobin A1C 10.2 % (4.2-6.1)
[2016-12-18 08:11] LABS: Glucose,Whole Blood 125 mg/dL (75-99)
[2016-12-18 08:26] VITALS: TEMP 97.1
[2016-12-18] MEDS: SUCRALFATE 1 GM TAB PO SCH ×3 (08:29→17:28)
[2016-12-18] MEDS: DEXTROSE 5%-0.9% NACL 1,000 ML IV SCH ×2 (08:31→17:52)
[2016-12-18] MEDS ORDERED: MULTIVITAMINS, THERA 1 EACH TAB PO SCH (09:00)
[2016-12-18] MEDS ORDERED: FOLIC ACID 1 MG TAB PO SCH (09:00)
[2016-12-18] MEDS ORDERED: THIAMINE 100 MG TAB PO SCH (09:00)
[2016-12-18] MEDS ORDERED: amLODIPine 5 MG TAB PO SCH (09:00)
[2016-12-18] MEDS ORDERED: LISINOPRIL 10 MG TAB PO SCH (09:00)
[2016-12-18] MEDS ORDERED: METOPROLOL TARTRATE 25 MG TAB PO SCH (09:00)
[2016-12-18 10:44] LABS: Glucose,Whole Blood 222 mg/dL (75-99)
[2016-12-18 12:17] LABS: Glucose,Whole Blood 274 mg/dL (75-99)
[2016-12-18 13:26] VITALS: BMI 19.9
--- NOTE | 2016-12-18 14:58 | P.HPIM ---
History of Present Illness H&P Date: 12/17/16 Chief Complaint: Hypoglycemia 56-year-old Afro-[place]aur[place] male who stated that he was just discharged within the last 24 hours from [facility] the patient was being worked up for gastroparesis. Patient was referred to [facility] in [place] facility for possible Botox injection for treatment of gastroparesis. Patient is a poor historian. Is denying any chest pain dizziness lightheadedness or shortness of breath. Patient's blood sugar and emergency room was 94. Is a poor historian cannot actually give information as to what treatment he did have it [facility] in [place] when questioning Patient does have a history of frequent reoccurring episodes of DKA with frequent admissions for treatment suspect due to episodes of noncompliance. It' s noted the patient did undergo an EGD on 12/06/2016 for persistent nausea vomiting. The EGD with biopsies did show mild antral gastritis with linear erosions ulcerations with exudates noted in the distal esophagus consistent with severe LA grade D reflux esophagitis. Patient was instructed at that time to take protonic 40 twice a day with Diflucan as ordered Review of Systems Essentially unremarkable except as mentioned in the present illness Past Medical History Past Medical History: Heart Failure, Diabetes Mellitus, Hypertension, Pneumonia , Renal Disease, Rheumatoid Arthritis (RA), Skin Disorder Additional Past Medical History / Comment(s): 10/20/16 thought sepsis 2ndary to R middle lobe pne, multiple admissions for dka Other hx: IDDM poorly controlled , DKAs, diabetic gastroparesis, bilateral feet/hands peripheral neuropathy, blood behind both eyes, peptic ulcer disease/duodenal ulcer/gastritis with erosions, previous hospitalization for pulmonary edema and bilateral pleural effusion and subsequent evaluation showed a preserved LV function with an ejection fraction of around 50%, CKD stage III, normocytic chronic anemia, rheumatoid arthritis, DJD, chronic back pain, osteoarthritis-generalized, eczema , psoriasis, ear infections, hx of narcotic abuse, cocaine abuse and alcohol abuse. History of Any Multi-Drug Resistant Organisms: MRSA Date of last positivie culture/infection: 02/25/08 MDRO Source:: Neck Past Surgical History: Adenoidectomy, Tonsillectomy Additional Past Surgical History / Comment(s): colonoscopy 2008, EGD, lt great toe amp, and part of 2nd toe. Past Anesthesia/Blood Transfusion Reactions: No Reported Reaction Past Psychological History: No Psychological Hx Reported Additional Psychological History / Comment(s): patient stated he lived with [facility] but is reluctant to answer any questions Smoking Status: Never smoker Past Alcohol Use History: Unable to Obtain Additional Past Alcohol Use History / Comment(s): weekly Past Drug Use History: Cocaine, Marijuana, Opiates, Prescription Drug Abuse - Past Family History Father Family Medical History: Diabetes Mellitus, Hypertension Additional Family Medical History / Comment(s): father at the age of 82 yrs from diabetic complications. Mother Additional Family Medical History / Comment(s): pyschiatric issues. Mother is 78yrs old. Medications and Allergies Home Medications Medication Instructions Recorded Confirmed Type Metoprolol Tartrate [Lopressor] 25 mg PO BID 08/05/16 12/17/16 History traZODone HCL [Desyrel] 200 mg PO HS 08/05/16 12/17/16 History amLODIPine [Norvasc] 5 mg PO DAILY 10/06/16 12/17/16 History Lisinopril [Zestril] 10 mg PO DAILY 10/20/16 12/17/16 History INSULIN LISPRO (humaLOG) [humaLOG See Protocol SQ AC-TID 10/28/16 12/17/16 History (formulary)] Allergies Allergy/AdvReac Type Severity Reaction Status Date / Time No Known Allergies Allergy Verified 12/17/16 19:22 Physical Exam Vitals: Vital Signs Temp Pulse Pulse Resp BP BP Pulse Ox 12/18/16 07:00 97.1 F L 82 22 175/89 100 12/18/16 01:54 96 16 12/17/16 22:23 97.8 F 96 16 157/94 12/17/16 21:59 98 F 68 16 154/70 98 12/17/16 21:11 93 L 12/17/16 21:09 78 16 167/95 99 12/17/16 19:22 97.5 F L 65 16 172/70 98 Intake and Output 12/17/16 12/18/16 12/18/16 22:59 06:59 14:59 Intake Total 400 840 Balance 400 840 Intake: Intake, IV Titration 400 600 Amount Sodium Chloride 0.9% 1, 400 600 000 ml @ 50 mls/hr IV . [facility] Rx#:[id number] Oral 240 Other: Voiding Method Toilet Toilet # Voids 5 3 Weight 61.235 kg 61.235 kg Patient Weight 12/19/16 06:59 Weight 61.235 kg GENERAL APPEARANCE: 56-year-old Afro-Naur[place] male patient is alert, oriented, in no acute distress. VITAL SIGNS: Reviewed HEENT: Head is normocephalic and atraumatic. Pupils are equal and reactive. The nares are patent. Oropharynx is clear without lesions. NECK: Supple without lymphadenopathy. Traches midline. HEART: S1, S2. Regular rate and rhythm. Denying chest pain LUNGS: No crackles or wheezes are heard. Essentially unremarkable clear on room air no shortness of breath ABDOMEN: Soft, nontender, nondistended with good bowel sounds. No peritoneal signs. No palpable organomegaly or masses. Tolerated diet no nausea no vomiting EXTREMITIES: Normal skin color and turgor. No cyanosis, rash, ulceration, clubbing or edema. Radial pedal pulses are 2/4 bilaterally. NEUROLOGICAL: No focal deficits. Strength and sensation are grossly intact. Results CBC & Chem 7: 12/17/16 20:15 12/17/16 20:15 Labs: Abnormal Lab Results - Last 24 Hours (Table) 12/17/16 12/17/16 12/17/16 Range/Units 20:15 20:15 20:15 RBC 3.88 L (4.30-5.90) m/uL Hgb 12.2 L (13.0-17.5) gm/dL Hct 38.3 L (39.0-53.0) % Lymphocytes # 0.9 L (1.0-4.8) k/uL Glucose 32 L* (74-99) mg/dL POC Glucose (mg/dL) (75-99) mg/dL Hemoglobin A1c 10.2 H (4.2-6.1) % AST 154 H (17-59) U/L ALT 77 H (21-72) U/L Urine Glucose (UA) (Negative) Urine Blood (Negative) Urine Bacteria (None) /hpf 12/17/16 12/17/16 12/18/16 Range/Units 21:05 23:59 02:07 RBC (4.30-5.90) m/uL Hgb (13.0-17.5) gm/dL Hct (39.0-53.0) % Lymphocytes # (1.0-4.8) k/uL Glucose (74-99) mg/dL POC Glucose (mg/dL) 268 H 476 H (75-99) mg/dL Hemoglobin A1c (4.2-6.1) % AST (17-59) U/L ALT (21-72) U/L Urine Glucose (UA) Trace H (Negative) Urine Blood Small H (Negative) Urine Bacteria Rare H (None) /[facility] 12/18/16 12/18/16 12/18/16 Range/Units 04:28 05:50 06:16 RBC (4.30-5.90) m/uL Hgb (13.0-17.5) gm/dL Hct (39.0-53.0) % Lymphocytes # (1.0-4.8) k/uL Glucose (74-99) mg/dL POC Glucose (mg/dL) 271 H 43 L 54 L (75-99) mg/dL Hemoglobin A1c (4.2-6.1) % AST (17-59) U/L ALT (21-72) U/L Urine Glucose (UA) (Negative) Urine Blood (Negative) Urine Bacteria (None) /[facility] 12/18/16 12/18/16 12/18/16 Range/Units 06:35 07:02 08:08 RBC (4.30-5.90) m/uL Hgb (13.0-17.5) gm/dL Hct (39.0-53.0) % Lymphocytes # (1.0-4.8) k/uL Glucose (74-99) mg/dL POC Glucose (mg/dL) 55 L 66 L 125 H (75-99) mg/dL Hemoglobin A1c (4.2-6.1) % AST (17-59) U/L ALT (21-72) U/L Urine Glucose (UA) (Negative) Urine Blood (Negative) Urine Bacteria (None) /[facility] 12/18/16 12/18/16 Range/Units 10:32 12:13 RBC (4.30-5.90) m/uL Hgb (13.0-17.5) gm/dL Hct (39.0-53.0) % Lymphocytes # (1.0-4.8) k/uL Glucose (74-99) mg/dL POC Glucose (mg/dL) 222 H 274 H (75-99) mg/dL Hemoglobin A1c (4.2-6.1) % AST (17-59) U/L ALT (21-72) U/L Urine Glucose (UA) (Negative) Urine Blood (Negative) Urine Bacteria (None) /hpf Thrombosis Risk Factor Assmnt - Choose All That Apply Any of the Below Risk Factors Present?: No Assessment and Plan Plan: Impression Present on admission hypoglycemia blood sugar 94 Chronic noncompliant frequent readmissions for diabetic ketoacidosis likely due to noncompliance with taking insulin and follow-up Type II diabetes insulin requiring uncontrolled hemoglobin A1c 10.9 Polysubstance abuse Hypertension essential Mood disorder Chronic kidney disease stage III Hypertension with hypertensive heart disease with moderate concentric left ventricular hypertrophy per echocardiogram 2015 Esophageal reflux disease Peripheral neuropathy Plan Obtain records from [facility] Monitor blood sugars address as indicated DVT and GI prophylaxis Resume home meds as appropriate Transfer back to [facility] in [place] for further treatment of gastroparesis possible candidate for Botox injection The above impression and plan of care have been discussed and directed by signing physician. Bri Melendez nurse practitioner acting as scribe for signing physician.
[2016-12-18 15:14] LABS: Glucose,Whole Blood 170 mg/dL (75-99)
[2016-12-18 15:18] VITALS: BP 130/74; PULSE 70; RESP 20
[2016-12-18 17:15] LABS: Glucose,Whole Blood 237 mg/dL (75-99)
[2016-12-18] MEDS ORDERED: INSULIN DETEMIR 100 UNIT/ML 10 ML VIAL SQ SCH (21:00)
[2016-12-18] MEDS ORDERED: traZODone HCL 100 MG TAB PO SCH (21:00)
--- NOTE | 2016-12-19 07:34 | P.DS ---
Providers Date of admission: 12/17/16 21:11 Expected date of discharge: 12/18/16 Attending physician: Nimesh De Luna [facility] Course: 56-year-old Afro-[place] male who stated that he was just discharged within the last 24 hours from [facility] in [place] the patient was being worked up for gastroparesis. Patient was referred to [facility] in [place] facility for possible Botox injection for treatment of gastroparesis. Patient is a poor historian. Is denying any chest pain dizziness lightheadedness or shortness of breath. Patient's blood sugar and emergency room was 94. Is a poor historian cannot actually give information as to what treatment he did have at [facility] in [place] when questioning patient continued to report having a nausea sensation with poor appetite decision was made to transfer the patient back to [facility] in [place] for further workup for treatment patients gastrophoresis Patient does have a history of frequent reoccurring episodes of DKA with frequent admissions for treatment suspect due to episodes of noncompliance. It' s noted the patient did undergo an EGD on 12/06/2016 for persistent nausea vomiting. The EGD with biopsies did show mild antral gastritis with linear erosions ulcerations with exudates noted in the distal esophagus consistent with severe LA grade D reflux esophagitis. Patient was instructed at that time to take protonix 40 twice a day with Diflucan as ordered Impression discharge diagnosis Present on admission hypoglycemia blood sugar 94 Chronic noncompliant frequent readmissions for diabetic ketoacidosis likely due to noncompliance with taking insulin and follow-up Type II diabetes insulin requiring uncontrolled hemoglobin A1c 10.9 Polysubstance abuse Hypertension essential Mood disorder Chronic kidney disease stage III Hypertension with hypertensive heart disease with moderate concentric left ventricular hypertrophy per echocardiogram 2016 Esophageal reflux disease Peripheral neuropathy Persistent episodes of nausea with vomiting suspect due to gastrophoresis likely due to diabetes The above impression and plan of care have been discussed and directed by signing physician. Bri Melendez nurse practitioner acting as scribe for signing physician. Patient Condition at Discharge: Good Plan - Discharge Summary New Discharge Prescriptions: No Action Folic Acid 1 mg PO DAILY #30 tablet Multivitamins, Thera [Multivitamin (formulary)] 1 tab PO DAILY #30 tablet Thiamine [Vitamin B-1] 100 mg PO DAILY #30 tablet Polyethylene Glycol 3350 [Miralax] 17 gm PO DAILY PRN #30 packet PRN Reason: Constipation traZODone HCL [Desyrel] 200 mg PO HS Metoprolol Tartrate [Lopressor] 25 mg PO BID Gabapentin [Neurontin] 100 mg PO TID #60 cap Calcium Carbonate [Tums] 500 mg PO TID #1 chew amLODIPine [Norvasc] 5 mg PO DAILY Metoclopramide HCl [Reglan] 5 mg PO TID #30 tablet Sucralfate [Carafate] 1 gm PO ACHS #120 tablet Lisinopril [Zestril] 10 mg PO DAILY INSULIN LISPRO (humaLOG) [humaLOG (formulary)] See Protocol SQ AC-TID Omeprazole [PriLOSEC] 20 mg PO AC-BID #60 cap Insulin Detemir [Levemir] 15 unit SQ HS #0 vial Acetaminophen Tab [Tylenol] 650 mg PO Q6HR PRN tab PRN Reason: Fever And/ Or Pain INSULIN LISPRO (humaLOG) [humaLOG (formulary)] 5 unit SQ AC-TID #1 vial LORazepam [Ativan] 0.5 mg PO Q8HR PRN #10 tab PRN Reason: Anxiety Pantoprazole [Protonix] 40 mg PO AC-BID #60 tab Discharge Medication List Folic Acid 1 mg PO DAILY #30 tablet 07/16/16 [Rx] Multivitamins, Thera [Multivitamin (formulary)] 1 tab PO DAILY #30 tablet [Rx] Thiamine [Vitamin B-1] 100 mg PO DAILY #30 tablet 07/16/16 [Rx] Polyethylene Glycol 3350 [Miralax] 17 gm PO DAILY PRN #30 packet 07/25/16 [Rx] Metoprolol Tartrate [Lopressor] 25 mg PO BID 08/05/16 [History] traZODone HCL [Desyrel] 200 mg PO HS 08/05/16 [History] Calcium Carbonate [Tums] 500 mg PO TID #1 chew 09/02/16 [Rx] Gabapentin [Neurontin] 100 mg PO TID #60 cap 09/02/16 [Rx] amLODIPine [Norvasc] 5 mg PO DAILY 10/06/16 [History] Metoclopramide HCl [Reglan] 5 mg PO TID #30 tablet 10/07/16 [Rx] Sucralfate [Carafate] 1 gm PO ACHS #120 tablet 10/12/16 [Rx] Lisinopril [Zestril] 10 mg PO DAILY 10/20/16 [History] INSULIN LISPRO (humaLOG) [humaLOG (formulary)] See Protocol SQ AC-TID 10/28/16 [ History] Insulin Detemir [Levemir] 15 unit SQ HS #0 vial 10/29/16 [Rx] Omeprazole [PriLOSEC] 20 mg PO AC-BID #60 cap 10/29/16 [Rx] Acetaminophen Tab [Tylenol] 650 mg PO Q6HR PRN tab 11/12/16 [Rx] INSULIN LISPRO (humaLOG) [humaLOG (formulary)] 5 unit SQ AC-TID #1 vial [Rx] LORazepam [Ativan] 0.5 mg PO Q8HR PRN #10 tab 11/21/16 [Rx] Pantoprazole [Protonix] 40 mg PO AC-BID #60 tab 11/21/16 [Rx] Follow up Appointment(s)/Referral(s): Nimesh De Luna MD [Primary Care Provider] - 1-2 days Discharge Disposition: DC/TRNS INTERMEDIATE CARE FAC
== END 2016-12-18 19:00 ==
LOC: EC 19:19 → INTOOBSV 21:11 → 5MS5E 21:11
PROVIDERS: ADMIT Family Medicine; ATTEND Family Medicine
DX: E11.649 Type 2 diabetes mellitus with hypoglycemia without coma (principal); E11.65 Type 2 diabetes mellitus with hyperglycemia; Z91.19 Patient's noncompliance with other medical treatment and regimen; F19.10 Other psychoactive substance abuse, uncomplicated; F12.10 Cannabis abuse, uncomplicated; F14.10 Cocaine abuse, uncomplicated; F11.10 Opioid abuse, uncomplicated; F39 Unspecified mood [affective] disorder; E11.22 Type 2 diabetes mellitus with diabetic chronic kidney disease; N18.3 Chronic kidney disease, stage 3 (moderate); I13.0 Hypertensive heart and chronic kidney disease with heart failure and stage 1 through stage 4 chronic kidney disease, or unspecified chronic kidney disease; G62.9 Polyneuropathy, unspecified; K21.0 Gastro-esophageal reflux disease with esophagitis; K31.84 Gastroparesis; I50.9 Heart failure, unspecified; E11.43 Type 2 diabetes mellitus with diabetic autonomic (poly)neuropathy; Z79.899 Other long term (current) drug therapy; Z79.4 Long term (current) use of insulin; Z86.14 Personal history of Methicillin resistant Staphylococcus aureus infection
CPT/HCPCS: 99285; 96374; 96375; 96361 ×2; 36415; 80053; 82150; 83036; 83605; 83690; 84484; 85025; 81001; 74000; 70450; G0378 ×2; J2405

== ENCOUNTER 2017-01-04 16:02 | Inpatient (IN) | payer OTHER ==
[2017-01-04 16:14] LABS: Glucose,Whole Blood >600 mg/dL (75-99)
[2017-01-04] MEDS ORDERED: PANTOPRAZOLE 40 MG/10 ML VIAL IVP STA (16:33)
[2017-01-04] MEDS ORDERED: HYDROmorphone 1 MG/ML 1 ML SYRINGE IVP STA (16:33)
[2017-01-04] MEDS ORDERED: SODIUM CHLORIDE 0.9% 1,000 ML IV STA ×2 (16:33)
[2017-01-04] MEDS ORDERED: METOCLOPRAMIDE 5 MG/ML 2 ML VIAL IVP STA (16:33)
[2017-01-04 18:24] LABS: ALT 44 U/L (21-72); AST 26 U/L (17-59); Alkaline Phosphatase 135 U/L (38-126); Amylase 34 U/L (30-110); Anion Gap 25 mmol/L; Blood Urea Nitrogen 27 mg/dL (9-20); Calcium 9.7 mg/dL (8.4-10.2); Carbon Dioxide 12 mmol/L (22-30); Chloride 96 mmol/L (98-107); Non-African American GFR(MDRD) 52 (>60 ml/min/1.73 sqM); Potassium 5.7 mmol/L (3.5-5.1); Sodium 133 mmol/L (137-145); Total Bilirubin 1.1 mg/dL (0.2-1.3); Total Protein 6.9 g/dL (6.3-8.2)
[2017-01-04 18:26] LABS: Basophils % (A) 0 %; CH 31.4; CHCM 30.5; Eosinophils % (A) 0 %; HCT 39.2 % (39.0-53.0); HDW 2.61; HGB 11.9 gm/dL (13.0-17.5); Hypochromasia Moderate; Luc # (Auto) 0.07; Luc % (Auto) 1; Lymphocytes % (A) 17 %; MCH 31.3 pg (25.0-35.0); MCHC 30.2 g/dL (31.0-37.0); Macrocytosis Slight; Mean Platelet Volume 8.5; Monocytes # (A) 0.3 k/uL (0-1.0); Monocytes % (A) 5 %; Neutrophils # (A) 4.8 k/uL (1.3-7.7); Neutrophils % (A) 76 %; RBC 3.79 m/uL (4.30-5.90); RDW 14.5 % (11.5-15.5); WBC 6.3 k/uL (3.8-10.6); WBC (Perox) 6.22
--- NOTE | 2017-01-04 18:30 | XR ---
EXAMINATION TYPE: XR abdomen 2V DATE OF EXAM: 01/04/2017 COMPARISON: 12/17/2016 INDICATION: Abdomen pain TECHNIQUE: 2 view view abdomen upright view and supine view FINDINGS: There is a normal bowel gas pattern. There is within the colon Psoas margins are normal. No organomegaly is present. No mass effect is evident. Calcifications within the iliac regions extending into the femoral regions . Osseous structures appear intact. IMPRESSION: 1. Unremarkable Abdomen
[2017-01-04 18:36] LABS: Glucose 732 mg/dL (74-99)
[2017-01-04] MEDS ORDERED: INSULIN REGULAR BOLUS (FROM DRIP BAG) IV ONE (18:39)
--- NOTE | 2017-01-04 18:39 | ED ---
General Adult HPI - General Chief complaint: Recheck/Abnormal Lab/Rx Stated complaint: HYPERGLYCEMIA Time Seen by Provider: 01/04/17 16:32 Source: patient, EMS, RN notes reviewed, old records reviewed Mode of arrival: EMS Limitations: no limitations - History of Present Illness Initial comments: Chief complaint history of present illness this is a 56-year-old male Dr. Al seen emergency room for DKA. The patient reports to drinking alcohol yesterday but not today. He states he has chronic abdominal pain. No nausea no vomiting but had diarrhea for 2 days. He checked his sugar at home and his meter said triple HHH. Accu-Chek here at bedside was greater than 600. - Related Data Home Medications Medication Instructions Recorded Confirmed Insulin Aspart [NovoLOG] See Protocol SQ ACHS 01/04/17 01/04/17 Insulin Glargine [Lantus] 25 unit SQ QAM 01/04/17 01/04/17 Multivitamins, Thera [Multivitamin 1 tab PO DAILY 01/04/17 01/04/17 (formulary)] Allergies Allergy/AdvReac Type Severity Reaction Status Date / Time No Known Allergies Allergy Verified 01/04/17 16:07 Review of Systems ROS Statement: Those systems with pertinent positive or pertinent negative responses have been documented in the HPI. Review of systems patient has a right ear pain there is evidence of otitis externa. Otherwise no headache no sore throat no chest pain or shortness of breath he has epigastric discomfort which is chronic. Diarrhea for 2 days. No back pain. Denies any rashes or fever at home. All systems are reviewed. Past medical problems significant for abuse of cocaine and opiates prescription drugs which she states that in the past and is no longer doing. Denies alcohol abuse but he drank yesterday. The patient's other medical problems include heart failure, insulin-dependent diabetes mellitus, hypertension, pneumonia, chronic renal insufficiency, rheumatoid arthritis, skin disorder. Patient surgeries include tonsils, adenoids he has had a colonoscopy 8 years ago. Family history grandmother cancer of unknown type. Patient denies ALLERGIES denies smoking does drink frequently. ROS Other: All systems not noted in ROS Statement are negative. Past Medical History Past Medical History: Heart Failure, Diabetes Mellitus, Hypertension, Pneumonia , Renal Disease, Rheumatoid Arthritis (RA), Skin Disorder Additional Past Medical History / Comment(s): 10/20/16 thought sepsis 2ndary to R middle lobe pne, multiple admissions for dka Other hx: IDDM poorly controlled , DKAs, diabetic gastroparesis, bilateral feet/hands peripheral neuropathy, blood behind both eyes, peptic ulcer disease/duodenal ulcer/gastritis with erosions, previous hospitalization for pulmonary edema and bilateral pleural effusion and subsequent evaluation showed a preserved LV function with an ejection fraction of around 50%, CKD stage III, normocytic chronic anemia, rheumatoid arthritis, DJD, chronic back pain, osteoarthritis-generalized, eczema , psoriasis, ear infections, hx of narcotic abuse, cocaine abuse and alcohol abuse. History of Any Multi-Drug Resistant Organisms: MRSA Date of last positivie culture/infection: 02/25/08 MDRO Source:: Neck Past Surgical History: Adenoidectomy, Tonsillectomy Additional Past Surgical History / Comment(s): colonoscopy 2009, EGD, lt great toe amp, and part of 2nd toe. Past Anesthesia/Blood Transfusion Reactions: No Reported Reaction Past Psychological History: No Psychological Hx Reported Smoking Status: Never smoker Past Alcohol Use History: Unable to Obtain Past Drug Use History: Cocaine, Marijuana, Opiates, Prescription Drug Abuse - Past Family History Father Family Medical History: Diabetes Mellitus, Hypertension Additional Family Medical History / Comment(s): father at the age of 82 yrs from diabetic complications. Mother Additional Family Medical History / Comment(s): pyschiatric issues. Mother is 78yrs old. General Exam - General Exam Comments Initial Comments: General: The patient is awake and alert, he with a complaint of epigastric discomfort and elevated blood sugar. Laboratory reports his blood sugar to be 732. Vital signs find temperature 98.5 pulse 89 respiratory rate 18 pulse ox on percent room air blood pressure 153/77 Eye: Pupils are equal, round and reactive to light, extra-ocular movements are intact ; there is normal conjunctiva bilaterally. No signs of icterus. Ears, nose, mouth and throat: Patient has what appears to be right otitis externa. Neck: The neck is supple, there is no tenderness. Cardiovascular: Systolic murmur. No complaint of chest pain or shortness of breath. Respiratory: Lungs are clear to auscultation, respirations are non-labored, breath sounds are equal. No wheezes, stridor, rales, or rhonchi. Gastrointestinal: Tenderness with palpation of the abdomen. No rebound or referred pain. Active bowel sounds. No organomegaly. Back: Chronic back pain Musculoskeletal: Chronic back pain Neurological: No focal or lateralizing deficits noted. Patient has no complaints. Skin: Skin is warm and dry and no rashes or lesions are noted. Limitations: no limitations Course Vital Signs 01/04/17 01/04/17 16:10 19:09 Temperature 98.5 F 97.9 F Pulse Rate 89 114 H Respiratory 18 18 Rate Blood Pressure 153/77 132/58 O2 Sat by Pulse 100 100 Oximetry Medical Decision Making - Medical Decision Making She presents with symptoms of DKA. Elevated blood sugar positive acetone. Labs are reviewed. Patient admitted diagnoses DKA. Case discussed with attending, Dr. De Luna. - Lab Data Result diagrams: 01/05/17 06:36 01/05/17 06:36 Lab Results 01/04/17 01/04/17 01/04/17 Range/Units 16:12 17:58 17:58 WBC 6.3 (3.8-10.6) k/uL RBC 3.79 L (4.30-5.90) m/uL Hgb 11.9 L (13.0-17.5) gm/dL Hct 39.2 (39.0-53.0) % MCV 103.6 H D (80.0-100.0) fL MCH 31.3 (25.0-35.0) pg MCHC 30.2 L (31.0-37.0) g/dL RDW 14.5 (11.5-15.5) % Plt Count 258 (150-450) k/uL Neutrophils % 76 % Lymphocytes % 17 % Monocytes % 5 % Eosinophils % 0 % Basophils % 0 % Neutrophils # 4.8 (1.3-7.7) k/uL Lymphocytes # 1.0 (1.0-4.8) k/uL Monocytes # 0.3 (0-1.0) k/uL Eosinophils # 0.0 (0-0.7) k/uL Basophils # 0.0 (0-0.2) k/uL Hypochromasia Moderate Macrocytosis Slight Sodium 133 L (137-145) mmol/L Potassium 5.7 H (3.5-5.1) mmol/L Chloride 96 L (98-107) mmol/L Carbon Dioxide 12 L (22-30) mmol/L Anion Gap 25 mmol/L BUN 27 H (9-20) mg/dL Creatinine 1.40 H (0.66-1.25) mg/dL Est GFR (MDRD) Af Amer >60 (>60 ml/min/1.73 sqM) Est GFR (MDRD) Non-Af 52 (>60 ml/min/1.73 sqM) Glucose 732 H* (74-99) mg/dL POC Glucose (mg/dL) >600 H (75-99) mg/dL POC Glu Body And Fender Worker ID McDaid, Meli Plasma Lactic Acid Eliazar (0.7-2.0) mmol/L Calcium 9.7 (8.4-10.2) mg/dL Total Bilirubin 1.1 (0.2-1.3) mg/dL AST 26 (17-59) U/L ALT 44 (21-72) U/L Alkaline Phosphatase 135 H (38-126) U/L Total Protein 6.9 (6.3-8.2) g/dL Albumin 4.2 (3.5-5.0) g/dL Amylase 34 (30-110) U/L Lipase 23 (23-300) U/L Acetone, Qual Positive (Negative) 01/04/17 Range/Units 17:58 WBC (3.8-10.6) k/uL RBC (4.30-5.90) m/uL Hgb (13.0-17.5) gm/dL Hct (39.0-53.0) % MCV (80.0-100.0) fL MCH (25.0-35.0) pg MCHC (31.0-37.0) g/dL RDW (11.5-15.5) % Plt Count (150-450) k/uL Neutrophils % % Lymphocytes % % Monocytes % % Eosinophils % % Basophils % % Neutrophils # (1.3-7.7) k/uL Lymphocytes # (1.0-4.8) k/uL Monocytes # (0-1.0) k/uL Eosinophils # (0-0.7) k/uL Basophils # (0-0.2) k/uL Hypochromasia Macrocytosis Sodium (137-145) mmol/L Potassium (3.5-5.1) mmol/L Chloride (98-107) mmol/L Carbon Dioxide (22-30) mmol/L Anion Gap mmol/L BUN (9-20) mg/dL Creatinine (0.66-1.25) mg/dL Est GFR (MDRD) Af Amer (>60 ml/min/1.73 sqM) Est GFR (MDRD) Non-Af (>60 ml/min/1.73 sqM) Glucose (74-99) mg/dL POC Glucose (mg/dL) (75-99) mg/dL POC Glu Body And Fender Worker ID Plasma Lactic Acid Eliazar 1.9 (0.7-2.0) mmol/L Calcium (8.4-10.2) mg/dL Total Bilirubin (0.2-1.3) mg/dL AST (17-59) U/L ALT (21-72) U/L Alkaline Phosphatase (38-126) U/L Total Protein (6.3-8.2) g/dL Albumin (3.5-5.0) g/dL Amylase (30-110) U/L Lipase (23-300) U/L Acetone, Qual (Negative) Disposition Clinical Impression: Diabetic ketoacidosis Disposition: ADMITTED IP TO THIS HOSP Condition: Fair
[2017-01-04] MEDS: INSULIN REGULAR 100 UNIT in SODIUM CHLORIDE 0.9% 100 ML IV SCH (19:04)
[2017-01-04 19:34] LABS: Appearance,Urine Clear (Clear); Bilirubin,Urine Negative (Negative); Glucose,Urine (UA) 4+ (Negative); Leukocyte Esterase,Urine Negative (Negative); Nitrite,Urine Negative (Negative); Protein,Urine Negative (Negative); UA Billing (MACRO vs. MICRO) CHEM; Urobilinogen,Urine <2.0 mg/dL (<2.0)
[2017-01-04 19:56] LABS: Ketones,Urine 3+ (Negative)
[2017-01-04 19:56] LABS: Glucose,Whole Blood 560 mg/dL (75-99)
[2017-01-04] MEDS ORDERED: ONDANSETRON 4 MG/2 ML VIAL IVP PRN (20:28)
[2017-01-04 21:00] LABS: Glucose,Whole Blood 511 mg/dL (75-99)
[2017-01-04] MEDS: SODIUM CHLORIDE 0.9% 1,000 ML IV SCH ×2 (21:01→23:11)
[2017-01-04 22:00] LABS: Glucose,Whole Blood 366 mg/dL (75-99)
[2017-01-04 22:53] LABS: Anion Gap 15 mmol/L; Blood Urea Nitrogen 27 mg/dL (9-20); Carbon Dioxide 18 mmol/L (22-30); Chloride 104 mmol/L (98-107); Glucose 361 mg/dL (74-99); Non-African American GFR(MDRD) 57 (>60 ml/min/1.73 sqM); Phosphorous 3.3 mg/dL (2.5-4.5); Potassium 4.2 mmol/L (3.5-5.1); Sodium 137 mmol/L (137-145)
[2017-01-04 23:06] LABS: Glucose,Whole Blood 296 mg/dL (75-99)
[2017-01-04] MEDS: D5-0.45% NACL WITH KCL 20MEQ/L 1,000 ML IV SCH (23:10)
[2017-01-05 00:07] LABS: Glucose,Whole Blood 251 mg/dL (75-99)
[2017-01-05 00:59] LABS: Glucose,Whole Blood 267 mg/dL (75-99)
[2017-01-05 02:11] LABS: Glucose,Whole Blood 209 mg/dL (75-99)
[2017-01-05 02:56] LABS: Anion Gap 13 mmol/L; Blood Urea Nitrogen 24 mg/dL (9-20); Carbon Dioxide 20 mmol/L (22-30); Chloride 104 mmol/L (98-107); Glucose 181 mg/dL (74-99); Non-African American GFR(MDRD) >60 (>60 ml/min/1.73 sqM); Phosphorous 2.3 mg/dL (2.5-4.5); Potassium 4.1 mmol/L (3.5-5.1); Sodium 137 mmol/L (137-145)
[2017-01-05 03:11] LABS: Glucose,Whole Blood 124 mg/dL (75-99)
[2017-01-05] MEDS: traMADol 50 MG TAB PO PRN ×3 (04:02→20:59)
[2017-01-05 04:10] LABS: Glucose,Whole Blood 60 mg/dL (75-99)
[2017-01-05 04:31] LABS: Glucose,Whole Blood 74 mg/dL (75-99)
[2017-01-05] MEDS: SODIUM CHLORIDE 0.9% 1,000 ML IV SCH (04:59)
[2017-01-05 05:05] LABS: Glucose,Whole Blood 105 mg/dL (75-99)
[2017-01-05] MEDS: INSULIN REGULAR 100 UNIT in SODIUM CHLORIDE 0.9% 100 ML IV SCH (05:35)
[2017-01-05] MEDS: D5-0.45% NACL WITH KCL 20MEQ/L 1,000 ML IV SCH (05:36)
[2017-01-05 06:00] LABS: Glucose,Whole Blood 139 mg/dL (75-99)
[2017-01-05 06:50] LABS: Glucose,Whole Blood 257 mg/dL (75-99)
[2017-01-05 06:58] LABS: Basophils % (A) 1 %; CH 32.1; CHCM 32.8; Eosinophils # (A) 0.2 k/uL (0-0.7); Eosinophils % (A) 3 %; HGB 11.1 gm/dL (13.0-17.5); Luc # (Auto) 0.17; Luc % (Auto) 3; Lymphocytes # (A) 1.4 k/uL (1.0-4.8); Lymphocytes % (A) 22 %; MCH 31.2 pg (25.0-35.0); MCHC 31.8 g/dL (31.0-37.0); Mean Platelet Volume 7.9; Monocytes # (A) 0.5 k/uL (0-1.0); Monocytes % (A) 8 %; Neutrophils # (A) 4.1 k/uL (1.3-7.7); Neutrophils % (A) 64 %; RBC 3.56 m/uL (4.30-5.90); RDW 14.4 % (11.5-15.5); WBC 6.4 k/uL (3.8-10.6); WBC (Perox) 6.84
[2017-01-05 07:04] LABS: MCV 98.1 fL (80.0-100.0)
[2017-01-05 07:17] LABS: Anion Gap 7 mmol/L; Blood Urea Nitrogen 21 mg/dL (9-20); Carbon Dioxide 22 mmol/L (22-30); Chloride 104 mmol/L (98-107); Glucose 220 mg/dL (74-99); Non-African American GFR(MDRD) >60 (>60 ml/min/1.73 sqM); Potassium 4.8 mmol/L (3.5-5.1); Sodium 133 mmol/L (137-145)
[2017-01-05 08:02] LABS: Glucose,Whole Blood 270 mg/dL (75-99)
[2017-01-05 09:16] LABS: Glucose,Whole Blood 277 mg/dL (75-99)
[2017-01-05 10:33] LABS: Glucose,Whole Blood 320 mg/dL (75-99)
[2017-01-05 11:01] LABS: Hemoglobin A1C 10.1 % (4.2-6.1)
[2017-01-05 11:31] LABS: Glucose,Whole Blood 372 mg/dL (75-99)
[2017-01-05] MEDS: INSULIN LISPRO (humaLOG) 300 UNIT/3 ML VIAL SQ SCH ×3 (13:09→20:59)
[2017-01-05] MEDS: MULTIVITAMINS, THERA 1 EACH TAB PO SCH (14:10)
[2017-01-05] MEDS: CARBAMIDE PEROXIDE 6.5% DROPS 15 ML BTL RIGHT EAR SCH ×2 (14:10→20:59)
[2017-01-05] MEDS: INSULIN GLARGINE 100 UNIT/ML 10 ML VIAL SQ SCH (14:42)
[2017-01-05 15:48] LABS: MCV 103.6 fL (80.0-100.0)
[2017-01-05 16:35] LABS: Glucose,Whole Blood 336 mg/dL (75-99)
[2017-01-05 20:51] LABS: Glucose,Whole Blood 281 mg/dL (75-99)
[2017-01-05 21:53] VITALS: RESP 16
[2017-01-06] MEDS: traMADol 50 MG TAB PO PRN ×3 (04:21→18:06)
--- NOTE | 2017-01-06 05:18 | HP ---
SUBJECTIVE: A 56-year-old white male presented with diabetic ketoacidosis, noncompliant with his medicine at home. He was sent down to [facility] for gastroparesis about month ago. They sent him to a [facility] [place]. He got out 2 to 3 days ago. Since then he has not been taking any insulin and he is complaining of abdominal pain. Sugars came in over 600. Came to the hospital due to increased abdominal pain. Home medicines which he is not compliant with are: 1. Lantus 25 units daily. 2. Multivitamin daily. ALLERGIES: No known drug allergies. He is suppose to be on Carafate, Protonix, etc. He is not compliant. REVIEW OF SYSTEMS: Fourteen point review of systems is negative except for mentioned in HPI. He has had tonsillectomy and adenoidectomy, colonoscopy. He does not smoke or take alcohol. He has heart failure, diabetes mellitus, hypertension, pneumonia, renal disease , rheumatoid arthritis, skin disorder. He had sepsis secondary to right middle lobe pneumonia on 10/20/16. He is noncompliant as all get out. Stage III renal insufficiency, rheumatoid arthritis, DJD, current back pain, osteoarthritis, eczema, psoriasis, ear infection, narcotic abuse, cocaine abuse , alcohol abuse, history of MRSA. FAMILY HISTORY: Diabetes mellitus, hypertension. Mother with psychiatric history. GENERAL: He is awake, alert, epigastric discomfort. Elevated blood sugars in the 600 to 700s. Blood pressure is 150s over 70s. OPHTHALMOLOGIC: Pupils equal, round and reactive to light and accommodation. ENT: External ear canals within normal limits. NECK: Supple. CARDIOVASCULAR: Systolic. Heart S1, S2. GI: Soft. HEMATOLOGY: Negative Homans. GI: Distended. Tender to palpation. NEUROLOGIC: Alert and oriented x3. Temp 98.5, pulse 98 to 100, respiratory 16 to 18, blood pressure 130s to 150s over 50s to 70s. O2 is 100% on room air. Hemoglobin is 11.1, white count 6.4. Sodium is 133, potassium 5.7, creatinine 1.4. Sugar was 732 on admission. Positive acetone. Lactic acid 1.9. ASSESSMENT: 1. Diabetic ketoacidosis, noncompliance. 2. Gastroparesis. 3. Abdominal pain. 4. Suspect severe psychiatric illness, possible bipolar schizophrenia as patient is not taking care of himself. He may be having some mood disorders like his mom does. SENG
[2017-01-06] MEDS: SODIUM CHLORIDE 0.9% 1,000 ML IV SCH (06:02)
[2017-01-06 07:25] LABS: Glucose,Whole Blood 252 mg/dL (75-99)
[2017-01-06] MEDS: CARBAMIDE PEROXIDE 6.5% DROPS 15 ML BTL RIGHT EAR SCH ×2 (07:37→20:33)
[2017-01-06] MEDS: INSULIN LISPRO (humaLOG) 300 UNIT/3 ML VIAL SQ SCH ×4 (07:38→20:33)
[2017-01-06] MEDS: INSULIN GLARGINE 100 UNIT/ML 10 ML VIAL SQ SCH (07:38)
[2017-01-06 07:51] LABS: ALT 26 U/L (21-72); AST 20 U/L (17-59); Alkaline Phosphatase 84 U/L (38-126); Anion Gap 7 mmol/L; Blood Urea Nitrogen 18 mg/dL (9-20); Calcium 8.7 mg/dL (8.4-10.2); Carbon Dioxide 23 mmol/L (22-30); Chloride 103 mmol/L (98-107); Glucose 245 mg/dL (74-99); Non-African American GFR(MDRD) >60 (>60 ml/min/1.73 sqM); Potassium 4.5 mmol/L (3.5-5.1); Sodium 133 mmol/L (137-145); Total Bilirubin 0.6 mg/dL (0.2-1.3); Total Protein 5.9 g/dL (6.3-8.2)
[2017-01-06 08:16] LABS: Basophils % (A) 0 %; CH 31.6; CHCM 33.2; Eosinophils # (A) 0.3 k/uL (0-0.7); Eosinophils % (A) 5 %; HCT 34.2 % (39.0-53.0); HDW 2.61; HGB 11.3 gm/dL (13.0-17.5); Luc # (Auto) 0.16; Luc % (Auto) 3; Lymphocytes % (A) 36 %; MCH 31.7 pg (25.0-35.0); MCHC 33.1 g/dL (31.0-37.0); MCV 95.7 fL (80.0-100.0); Mean Platelet Volume 8.8; Monocytes # (A) 0.4 k/uL (0-1.0); Monocytes % (A) 7 %; Neutrophils # (A) 2.7 k/uL (1.3-7.7); Neutrophils % (A) 49 %; RBC 3.57 m/uL (4.30-5.90); RDW 14.2 % (11.5-15.5); WBC 5.5 k/uL (3.8-10.6)
[2017-01-06 09:06] VITALS: BMI 22.4
[2017-01-06] MEDS: MULTIVITAMINS, THERA 1 EACH TAB PO SCH (11:46)
[2017-01-06 11:48] LABS: Glucose,Whole Blood 295 mg/dL (75-99)
[2017-01-06] MEDS ORDERED: hydrALAZINE HCL 20 MG/ML 1 ML VIAL IVP PRN (12:12)
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
[2017-01-06 16:41] LABS: Glucose,Whole Blood 149 mg/dL (75-99)
[2017-01-06 20:02] LABS: Glucose,Whole Blood 163 mg/dL (75-99)
[2017-01-07] MEDS: traMADol 50 MG TAB PO PRN ×2 (03:29→11:03)
[2017-01-07 07:38] LABS: Glucose,Whole Blood 41 mg/dL (75-99)
[2017-01-07 07:39] LABS: Glucose,Whole Blood 41 mg/dL (75-99)
[2017-01-07 07:54] VITALS: BP 157/78; PULSE 75; TEMP 98.2
[2017-01-07 08:00] LABS: Glucose,Whole Blood 55 mg/dL (75-99)
[2017-01-07] MEDS: CARBAMIDE PEROXIDE 6.5% DROPS 15 ML BTL RIGHT EAR SCH (08:16)
[2017-01-07 08:18] LABS: Glucose,Whole Blood 95 mg/dL (75-99)
[2017-01-07] MEDS: INSULIN GLARGINE 100 UNIT/ML 10 ML VIAL SQ SCH (08:18)
[2017-01-07] MEDS: INSULIN LISPRO (humaLOG) 300 UNIT/3 ML VIAL SQ SCH (08:18)
--- NOTE | 2017-01-07 10:00 | P.DS ---
Providers Date of admission: 01/04/17 18:39 Expected date of discharge: 01/07/17 Attending physician: Nimesh De Luna Consults: 01/05/17 20:39 Consult Physician Routine Consulting Provider: Jennifer Mckeon Consult Reason/Comments: bipolar Do you want consulting provider notified?: Already Contacted Primary care physician: Nimesh De Luna - Discharge Diagnosis(es) (1) Diabetic ketoacidosis Present upon admission Status: Resolved (2) Nausea and vomiting due to hyperglycemia Present on admission, due to diabetic ketoacidosis. Status: Resolved Hospital Course: This is a 56-year-old -[place] male admitted on 01/04/2017 for diabetic ketoacidosis. Patient's blood sugar was found to be 732 upon admission. The patient admits to drinking alcohol the day before admission. Patient also presented with nausea. The patient has a history of cocaine abuse and opiate abuse. Patient blood sugar last night was 163. This morning the patient had an episode of hypoglycemia and was treated per nursing. The patient states he is continuing to have heartburn. Dr. De Luna recommends sending the patient home on Prilosec and Carafate. The patient denies any nausea or vomiting this morning. An abdominal x-ray was completed on 01/04/2017 which was unremarkable. The patient has a history of being noncompliant with medications and has a legal guardian appointed. Spoke with patient regarding importance of compliance with medications. psychiatry was consulted to see the patient. They did not recommend any treatment at this time. Social work spoke with guardian. Guardian had requested homecare but homecare had been ordered for patient multiple times for past admissions and patient continues to refuse to let homecare into his house. Social work states they're not sending patient home with home care at this time. The above impression and plan of care have been discussed and directed by signing physician. Ellen Cardona, nurse practitioner, acting as scribe for signing physician. Patient Condition at Discharge: Stable Plan - Discharge Summary New Discharge Prescriptions: New Omeprazole [PriLOSEC] 20 mg PO AC-BRKFST #30 cap Sucralfate [Carafate] 1 gm PO TID #90 tab Carbamide Peroxide [Debrox Otic] 8 drops RIGHT EAR BID #1 bottle traMADol HCl [Ultram] 50 mg PO Q6H PRN #60 tab PRN Reason: Pain Continue Multivitamins, Thera [Multivitamin (formulary)] 1 tab PO DAILY Insulin Glargine [Lantus] 25 unit SQ QAM Insulin Aspart [NovoLOG] See Protocol SQ ACHS Discharge Medication List Insulin Aspart [NovoLOG] See Protocol SQ ACHS 01/04/17 [History] Insulin Glargine [Lantus] 25 unit SQ QAM 01/04/17 [History] Multivitamins, Thera [Multivitamin (formulary)] 1 tab PO DAILY 01/04/17 [History ] Carbamide Peroxide [Debrox Otic] 8 drops RIGHT EAR BID #1 bottle 01/07/17 [Rx] Omeprazole [PriLOSEC] 20 mg PO AC-BRKFST #30 cap 01/07/17 [Rx] Sucralfate [Carafate] 1 gm PO TID #90 tab 01/07/17 [Rx] traMADol HCl [Ultram] 50 mg PO Q6H PRN #60 tab 01/07/17 [Rx] Follow up Appointment(s)/Referral(s): Nimesh De Luna MD [Primary Care Provider] - 1-2 days Jennifer Mckeon MD [Medical Doctor] - 1 Week Discharge Disposition: HOME SELF-CARE
--- NOTE | 2017-01-07 19:00 | PN ---
SUBJECTIVE: [id number] -Finnish male still has abdominal pains. He is noncompliant with diabetes. He is being treated for diabetic ketoacidosis and gastroparesis; will be possibly transported to home in the next 24 to 48 hours. Guardian will have to monitor his sugar and make sure he takes his medication, as he has not been taking his diabetic medicines regularly or taking care of himself. CARDIOVASCULAR: S1, S2. LUNGS: Clear. GI: Soft, distended due to obesity. HEMATOLOGIC: Negative Carol's. Psychiatric consultation is seen. ASSESSMENT: 1. Diabetic ketoacidosis. 2. ( ) disorder. 3. Noncompliance. Guardian will have to ensure he takes his medications. Home nursing will be needed. SENG
== END 2017-01-07 11:08 | disposition home or self-care (01) | DRG 638 ==
LOC: EC 16:02 → 6SEL 18:39 → 5MS5E 01-05 21:40
PROVIDERS: ADMIT Family Medicine; ATTEND Family Medicine
DX: E13.10 Other specified diabetes mellitus with ketoacidosis without coma (principal); I13.0 Hypertensive heart and chronic kidney disease with heart failure and stage 1 through stage 4 chronic kidney disease, or unspecified chronic kidney disease; I50.9 Heart failure, unspecified; N18.3 Chronic kidney disease, stage 3 (moderate); T38.3X6A Underdosing of insulin and oral hypoglycemic [antidiabetic] drugs, initial encounter; T47.1X6A Underdosing of other antacids and anti-gastric-secretion drugs, initial encounter; M06.9 Rheumatoid arthritis, unspecified; E11.22 Type 2 diabetes mellitus with diabetic chronic kidney disease; L30.9 Dermatitis, unspecified; L40.9 Psoriasis, unspecified; E11.43 Type 2 diabetes mellitus with diabetic autonomic (poly)neuropathy; K31.84 Gastroparesis; E11.649 Type 2 diabetes mellitus with hypoglycemia without coma; E66.9 Obesity, unspecified; D64.9 Anemia, unspecified; F10.10 Alcohol abuse, uncomplicated; G31.84 Mild cognitive impairment of uncertain or unknown etiology; M54.9 Dorsalgia, unspecified; G89.29 Other chronic pain; R01.1 Cardiac murmur, unspecified; Z90.49 Acquired absence of other specified parts of digestive tract; Z87.01 Personal history of pneumonia (recurrent); Z83.3 Family history of diabetes mellitus; Z82.49 Family history of ischemic heart disease and other diseases of the circulatory system; Z81.8 Family history of other mental and behavioral disorders; Z79.4 Long term (current) use of insulin; Z86.14 Personal history of Methicillin resistant Staphylococcus aureus infection; Z86.19 Personal history of other infectious and parasitic diseases; Z80.9 Family history of malignant neoplasm, unspecified; Z89.412 Acquired absence of left great toe; Z89.422 Acquired absence of other left toe(s)
CPT/HCPCS: 36415; 74020; 80048; 80051; 80053; 81003; 82009; 82150; 82565; 82947; 83036; 83605; 83690; 84100; 84520; 85025; 96361; 96374; 96375; 99285

== ENCOUNTER 2017-01-13 09:02 | Inpatient (IN) | payer OTHER ==
[2017-01-13 09:19] LABS: Glucose,Whole Blood >600 mg/dL (75-99)
[2017-01-13] MEDS ORDERED: SODIUM CHLORIDE 0.9% 2,000 ML IV STA (09:21)
--- NOTE | 2017-01-13 09:30 | ED ---
General Adult HPI - General Chief complaint: Abdominal Pain Stated complaint: abdominal pain/diabetic Time Seen by Provider: 01/13/17 09:19 Source: EMS, RN notes reviewed Mode of arrival: EMS Limitations: no limitations - History of Present Illness Initial comments: Patient is a 57-year-old male who presents emergency room today by EMS, the chief complaint of increased abdominal pain with nausea and diarrhea. He does admit to being a diabetic was recently admitted to the hospital approximately 10 days ago for the same complaint. Patient states his symptoms have started once again over the last 2 days. States his symptoms are consistent with symptoms that is had in the past. Denies any other complaints at this time. Patient denies any recent fever, chills, shortness of breath, chest pain, back pain, numbness or tingling, dysuria or hematuria, constipatio, headaches or visual changes, or any other complaints. - Related Data Home Medications Medication Instructions Recorded Confirmed Insulin Aspart [NovoLOG] See Protocol SQ ACHS 01/04/17 01/13/17 Insulin Glargine [Lantus] 25 unit SQ QAM 01/04/17 01/13/17 Multivitamins, Thera [Multivitamin 1 tab PO DAILY 01/04/17 01/13/17 (formulary)] Folic Acid 1 mg PO DAILY 01/13/17 01/13/17 Gabapentin [Neurontin] 100 mg PO TID 01/13/17 01/13/17 Ibuprofen [Motrin] 800 mg PO Q8H PRN 01/13/17 01/13/17 Lisinopril [Zestril] 10 mg PO DAILY 01/13/17 01/13/17 Metoprolol Tartrate [Lopressor] 25 mg PO BID 01/13/17 01/13/17 Sucralfate [Carafate] 1 gm PO BID 01/13/17 01/13/17 amLODIPine [Norvasc] 5 mg PO DAILY 01/13/17 01/13/17 traZODone HCL [Desyrel] 100 mg PO HS 01/13/17 01/13/17 Previous Rx's Medication Instructions Recorded Carbamide Peroxide [Debrox Otic] 8 drops RIGHT EAR BID #1 bottle 01/07/17 Omeprazole [PriLOSEC] 20 mg PO AC-BRKFST #30 cap 01/07/17 traMADol HCl [Ultram] 50 mg PO Q6H PRN #60 tab 01/07/17 Allergies Allergy/AdvReac Type Severity Reaction Status Date / Time No Known Allergies Allergy Verified 01/13/17 09:19 Review of Systems ROS Statement: Those systems with pertinent positive or pertinent negative responses have been documented in the HPI. ROS Other: All systems not noted in ROS Statement are negative. Past Medical History Past Medical History: Heart Failure, Diabetes Mellitus, Hypertension, Pneumonia , Renal Disease, Rheumatoid Arthritis (RA), Skin Disorder Additional Past Medical History / Comment(s): 10/20/16 thought sepsis 2ndary to R middle lobe pne, multiple admissions for dka Other hx: IDDM poorly controlled , DKAs, diabetic gastroparesis, bilateral feet/hands peripheral neuropathy, blood behind both eyes, peptic ulcer disease/duodenal ulcer/gastritis with erosions, previous hospitalization for pulmonary edema and bilateral pleural effusion and subsequent evaluation showed a preserved LV function with an ejection fraction of around 50%, CKD stage III, normocytic chronic anemia, rheumatoid arthritis, DJD, chronic back pain, osteoarthritis-generalized, eczema , psoriasis, ear infections, hx of narcotic abuse, cocaine abuse and alcohol abuse. History of Any Multi-Drug Resistant Organisms: MRSA Date of last positivie culture/infection: 02/25/08 MDRO Source:: Neck Past Surgical History: Adenoidectomy, Tonsillectomy Additional Past Surgical History / Comment(s): colonoscopy 2009, EGD, lt great toe amp, and part of 2nd toe. Past Anesthesia/Blood Transfusion Reactions: No Reported Reaction Past Psychological History: No Psychological Hx Reported Smoking Status: Never smoker Past Alcohol Use History: Unable to Obtain Past Drug Use History: Cocaine, Marijuana, Opiates, Prescription Drug Abuse - Past Family History Father Family Medical History: Diabetes Mellitus, Hypertension Additional Family Medical History / Comment(s): father at the age of 82 yrs from diabetic complications. Mother Additional Family Medical History / Comment(s): pyschiatric issues. Mother is 78yrs old. General Exam - General Exam Comments Initial Comments: General: The patient is awake and alert, in no distress, and does not appear acutely ill. Eye: Pupils are equal, round and reactive to light, extra-ocular movements are intact. No nystagmus. There is normal conjunctiva bilaterally. No signs of icterus. Ears, nose, mouth and throat: There are moist mucous membranes and no oral lesions. Neck: The neck is supple, there is no tenderness or JVD. Cardiovascular: There is a regular rate and rhythm. No murmur, rub or gallop is appreciated. Respiratory: Lungs are clear to auscultation, respirations are non-labored, breath sounds are equal. No wheezes, stridor, rales, or rhonchi. Gastrointestinal: Soft, non-distended. Mild tenderness in the left and right lower quadrant. There is no rebound or guarding present. No CVA tenderness. Bowel sounds are unremarkable. Musculoskeletal: Normal ROM, no tenderness. Strength 5/5. Sensation intact. Pulses equal bilaterally 2+. Neurological: A&O x 3. CN II-XII intact, There are no obvious motor or sensory deficits. Coordination appears grossly intact. Speech is normal. Skin: Skin is warm and dry and no rashes or lesions are noted. Psychiatric: Cooperative, appropriate mood & affect, normal judgment. Limitations: no limitations Course Vital Signs 01/13/17 09:05 Temperature 98.9 F Respiratory 18 Rate Blood Pressure 142/81 EKG Findings - EKG Comments: EKG Findings:: EKG performed at 1247: A 12-lead EKG was performed and interpreted by me as showing the following: Rate is 91, and rhythm is normal sinus. There are normal QRS complexes and normal R-wave progression. ST segments have no elevation or depression, and NM segments appear normal. Medical Decision Making - Medical Decision Making Patient reexamined at this time shows no signs of distress resting comfortably. His labs been reviewed does show elevated blood glucose greater than thousand. Bicarb 8. Potassium 6.5. Case discussed with attending physician who did discuss case with admitting physician Dr. De Luna. Patient will be continued on DKA protocol at this time. Patient is aware of plan. - Lab Data Result diagrams: 01/13/17 10:25 01/13/17 10:25 Lab Results 01/13/17 01/13/17 01/13/17 Range/Units 09:17 10:25 10:25 WBC 5.6 (3.8-10.6) k/uL RBC 3.93 L (4.30-5.90) m/uL Hgb 12.3 L (13.0-17.5) gm/dL Hct 42.8 (39.0-53.0) % MCV 108.9 H D (80.0-100.0) fL MCH 31.4 (25.0-35.0) pg MCHC 28.8 L (31.0-37.0) g/dL RDW 14.2 (11.5-15.5) % Plt Count 381 (150-450) k/uL Neutrophils % 64 % Lymphocytes % 27 % Monocytes % 6 % Eosinophils % 1 % Basophils % 0 % Neutrophils # 3.6 (1.3-7.7) k/uL Lymphocytes # 1.5 (1.0-4.8) k/uL Monocytes # 0.3 (0-1.0) k/uL Eosinophils # 0.1 (0-0.7) k/uL Basophils # 0.0 (0-0.2) k/uL Manual Slide Review Performed Hypochromasia Marked Macrocytosis Marked Sodium 124 L (137-145) mmol/L Potassium 6.5 H* (3.5-5.1) mmol/L Chloride 90 L (98-107) mmol/L Carbon Dioxide 8 L* (22-30) mmol/L Anion Gap 26 mmol/L BUN 33 H (9-20) mg/dL Creatinine 1.71 H (0.66-1.25) mg/dL Est GFR (MDRD) Af Amer 50 (>60 ml/min/1.73 sqM) Est GFR (MDRD) Non-Af 41 (>60 ml/min/1.73 sqM) Glucose 1018 H* (74-99) mg/dL POC Glucose (mg/dL) >600 H (75-99) mg/dL POC Glu Bioinformatics Developer ID Harry Xie Calcium 9.2 (8.4-10.2) mg/dL Total Bilirubin 0.5 (0.2-1.3) mg/dL AST 18 (17-59) U/L ALT 33 (21-72) U/L Alkaline Phosphatase 116 (38-126) U/L Total Protein 6.4 (6.3-8.2) g/dL Albumin 3.8 (3.5-5.0) g/dL Amylase 53 (30-110) U/L Lipase 43 (23-300) U/L Acetone, Qual Positive (Negative) 01/13/17 01/13/17 Range/Units 11:28 12:32 WBC (3.8-10.6) k/uL RBC (4.30-5.90) m/uL Hgb (13.0-17.5) gm/dL Hct (39.0-53.0) % MCV (80.0-100.0) fL MCH (25.0-35.0) pg MCHC (31.0-37.0) g/dL RDW (11.5-15.5) % Plt Count (150-450) k/uL Neutrophils % % Lymphocytes % % Monocytes % % Eosinophils % % Basophils % % Neutrophils # (1.3-7.7) k/uL Lymphocytes # (1.0-4.8) k/uL Monocytes # (0-1.0) k/uL Eosinophils # (0-0.7) k/uL Basophils # (0-0.2) k/uL Manual Slide Review Hypochromasia Macrocytosis Sodium (137-145) mmol/L Potassium (3.5-5.1) mmol/L Chloride (98-107) mmol/L Carbon Dioxide (22-30) mmol/L Anion Gap mmol/L BUN (9-20) mg/dL Creatinine (0.66-1.25) mg/dL Est GFR (MDRD) Af Amer (>60 ml/min/1.73 sqM) Est GFR (MDRD) Non-Af (>60 ml/min/1.73 sqM) Glucose (74-99) mg/dL POC Glucose (mg/dL) >600 H >600 H (75-99) mg/dL POC Glu Bioinformatics Developer ID [place] Calcium (8.4-10.2) mg/dL Total Bilirubin (0.2-1.3) mg/dL AST (17-59) U/L ALT (21-72) U/L Alkaline Phosphatase (38-126) U/L Total Protein (6.3-8.2) g/dL Albumin (3.5-5.0) g/dL Amylase (30-110) U/L Lipase (23-300) U/L Acetone, Qual (Negative) Disposition Clinical Impression: DKA (diabetic ketoacidoses) Disposition: ADMITTED IP TO THIS [facility] Condition: Stable Referrals: Nimesh De Luna MD [Primary Care Provider] - 1-2 days Time of Disposition: 12:40
[2017-01-13 10:36] LABS: Basophils % (A) 0 %; CH 31.3; CHCM 28.8; Eosinophils # (A) 0.1 k/uL (0-0.7); Eosinophils % (A) 1 %; HCT 42.8 % (39.0-53.0); HDW 2.61; HGB 12.3 gm/dL (13.0-17.5); Hypochromasia Marked; Luc # (Auto) 0.13; Luc % (Auto) 2; Lymphocytes # (A) 1.5 k/uL (1.0-4.8); Lymphocytes % (A) 27 %; MCH 31.4 pg (25.0-35.0); MCHC 28.8 g/dL (31.0-37.0); Macrocytosis Marked; Mean Platelet Volume 8.5; Monocytes # (A) 0.3 k/uL (0-1.0); Monocytes % (A) 6 %; Neutrophils # (A) 3.6 k/uL (1.3-7.7); Neutrophils % (A) 64 %; RBC 3.93 m/uL (4.30-5.90); RDW 14.2 % (11.5-15.5); WBC 5.6 k/uL (3.8-10.6); WBC (Perox) 6.09
[2017-01-13] MEDS ORDERED: ONDANSETRON 4 MG/2 ML VIAL IVP STA (10:37)
[2017-01-13 10:46] LABS: MCV 108.9 fL (80.0-100.0)
[2017-01-13 10:47] LABS: ALT 33 U/L (21-72); AST 18 U/L (17-59); Alkaline Phosphatase 116 U/L (38-126); Amylase 53 U/L (30-110); Blood Urea Nitrogen 33 mg/dL (9-20); Calcium 9.2 mg/dL (8.4-10.2); Chloride 90 mmol/L (98-107); Non-African American GFR(MDRD) 41 (>60 ml/min/1.73 sqM); Sodium 124 mmol/L (137-145); Total Bilirubin 0.5 mg/dL (0.2-1.3); Total Protein 6.4 g/dL (6.3-8.2)
[2017-01-13 10:52] LABS: Anion Gap 26 mmol/L
[2017-01-13 11:03] LABS: Manual Review Performed
--- NOTE | 2017-01-13 11:18 | XR ---
EXAMINATION TYPE: XR KUB DATE OF EXAM: 01/13/2017 11:13 AM CLINICAL HISTORY: Abdominal pain TECHNIQUE: Single supine image of the abdomen is obtained. COMPARISON: 12/17/2016 FINDINGS: Scattered gas is seen in non-distended small bowel loops. Gas and fecal material is seen in non-distended colon. There is no visceromegaly, or abnormal calcifications appreciated. Atherosclero sis is seen of the common iliac arteries and their branches. Transitional type L5 vertebrae is noted. The lung bases are clear and the osseous structures are intact. IMPRESSION: Nonobstructive bowel gas pattern with no acute intracranial process identified.
[2017-01-13] MEDS: INSULIN REGULAR 100 UNIT in SODIUM CHLORIDE 0.9% 100 ML IV SCH ×2 (11:24→20:45)
[2017-01-13 11:32] LABS: Glucose,Whole Blood >600 mg/dL (75-99)
[2017-01-13 12:38] LABS: Glucose 1018 mg/dL (74-99); Potassium 6.5 mmol/L (3.5-5.1)
[2017-01-13 12:39] LABS: Carbon Dioxide 8 mmol/L (22-30)
[2017-01-13 12:48] LABS: Glucose,Whole Blood >600 mg/dL (75-99)
[2017-01-13] MEDS ORDERED: ONDANSETRON 4 MG/2 ML VIAL IVP PRN (12:49)
[2017-01-13] MEDS ORDERED: NALOXONE 0.4 MG/ML 1 ML VIAL IV PRN (12:49)
[2017-01-13 13:42] LABS: Glucose,Whole Blood >600 mg/dL (75-99)
[2017-01-13 14:58] LABS: Glucose,Whole Blood >600 mg/dL (75-99)
[2017-01-13 15:35] LABS: Glucose,Whole Blood >600 mg/dL (75-99)
[2017-01-13 15:41] LABS: Phosphorous 3.1 mg/dL (2.5-4.5); Potassium 5.3 mmol/L (3.5-5.1)
[2017-01-13 16:54] LABS: Glucose,Whole Blood 526 mg/dL (75-99)
[2017-01-13 17:53] LABS: Glucose,Whole Blood 423 mg/dL (75-99)
[2017-01-13 18:45] LABS: Glucose,Whole Blood 394 mg/dL (75-99)
[2017-01-13] MEDS: SODIUM CHLORIDE 0.9% 1,000 ML IV SCH ×2 (19:57→21:34)
[2017-01-13 20:02] LABS: Glucose,Whole Blood 331 mg/dL (75-99)
[2017-01-13] MEDS ORDERED: DEXTROSE 5%-0.45% NACL 1,000 ML with POTASSIUM CHLORIDE 20 MEQ IV SCH ×2 (20:15)
[2017-01-13 20:36] LABS: Glucose,Whole Blood 286 mg/dL (75-99)
[2017-01-13] MEDS: D5-0.45% NACL WITH KCL 20MEQ/L 1,000 ML IV SCH (21:27)
[2017-01-13] MEDS: CARBAMIDE PEROXIDE 6.5% DROPS 15 ML BTL RIGHT EAR SCH (21:27)
[2017-01-13] MEDS: METOPROLOL TARTRATE 25 MG TAB PO SCH (21:28)
[2017-01-13] MEDS: SUCRALFATE 1 GM TAB PO SCH (21:28)
[2017-01-13] MEDS: traZODone HCL 100 MG TAB PO SCH (21:28)
[2017-01-13] MEDS: GABAPENTIN 100 MG CAP PO SCH (21:29)
[2017-01-13] MEDS: traMADol 50 MG TAB PO PRN (21:33)
[2017-01-13 21:41] LABS: Appearance,Urine Clear (Clear); Bilirubin,Urine Negative (Negative); Glucose,Urine (UA) 4+ (Negative); Ketones,Urine 1+ (Negative); Leukocyte Esterase,Urine Negative (Negative); Nitrite,Urine Negative (Negative); Protein,Urine Negative (Negative); Specific Gravity,Urine 1.004 (1.001-1.035); UA Billing (MACRO vs. MICRO) CHEM; Urobilinogen,Urine <2.0 mg/dL (<2.0)
[2017-01-13 21:45] LABS: Glucose,Whole Blood 298 mg/dL (75-99)
[2017-01-13 21:49] LABS: Calcium 8.7 mg/dL (8.4-10.2); Phosphorous 2.1 mg/dL (2.5-4.5); Potassium 4.3 mmol/L (3.5-5.1); Total Bilirubin 0.2 mg/dL (0.2-1.3); Total Protein 5.9 g/dL (6.3-8.2)
[2017-01-13 22:30] LABS: Glucose,Whole Blood 254 mg/dL (75-99)
[2017-01-13 23:35] LABS: Glucose,Whole Blood 251 mg/dL (75-99)
[2017-01-14 00:58] LABS: Glucose,Whole Blood 177 mg/dL (75-99)
[2017-01-14] MEDS: D5-0.45% NACL WITH KCL 20MEQ/L 1,000 ML IV SCH (00:59)
[2017-01-14] MEDS: traMADol 50 MG TAB PO PRN ×3 (05:19→21:24)
[2017-01-14 06:00] LABS: Basophils % (A) 0 %; CH 32.2; CHCM 32.7; Eosinophils # (A) 0.2 k/uL (0-0.7); Eosinophils % (A) 2 %; HCT 35.9 % (39.0-53.0); HGB 11.3 gm/dL (13.0-17.5); Luc # (Auto) 0.16; Luc % (Auto) 2; Lymphocytes # (A) 2.3 k/uL (1.0-4.8); Lymphocytes % (A) 29 %; MCH 31.1 pg (25.0-35.0); MCHC 31.4 g/dL (31.0-37.0); Mean Platelet Volume 7.9; Monocytes # (A) 0.6 k/uL (0-1.0); Monocytes % (A) 7 %; Neutrophils # (A) 4.9 k/uL (1.3-7.7); Neutrophils % (A) 60 %; RBC 3.62 m/uL (4.30-5.90); RDW 14.5 % (11.5-15.5); WBC 8.1 k/uL (3.8-10.6); WBC (Perox) 8.57
[2017-01-14 06:18] LABS: Calcium 8.9 mg/dL (8.4-10.2); Potassium 4.7 mmol/L (3.5-5.1); Total Bilirubin 0.3 mg/dL (0.2-1.3); Total Protein 5.6 g/dL (6.3-8.2)
[2017-01-14 06:22] LABS: Glucose,Whole Blood 296 mg/dL (75-99)
[2017-01-14 06:27] LABS: MCV 98.9 fL (80.0-100.0)
[2017-01-14] MEDS: INSULIN LISPRO (humaLOG) 300 UNIT/3 ML VIAL SQ SCH ×4 (06:34→21:17)
[2017-01-14] MEDS: PANTOPRAZOLE 40 MG TABLET PO SCH (06:34)
[2017-01-14] MEDS: INSULIN GLARGINE 100 UNIT/ML 10 ML VIAL SQ SCH (08:46)
[2017-01-14] MEDS: GABAPENTIN 100 MG CAP PO SCH ×3 (08:47→21:17)
[2017-01-14] MEDS: METOPROLOL TARTRATE 25 MG TAB PO SCH ×2 (08:47→21:17)
[2017-01-14] MEDS: CARBAMIDE PEROXIDE 6.5% DROPS 15 ML BTL RIGHT EAR SCH ×2 (08:47→21:17)
[2017-01-14] MEDS: FOLIC ACID 1 MG TAB PO SCH (08:47)
[2017-01-14] MEDS: amLODIPine 5 MG TAB PO SCH (08:47)
[2017-01-14] MEDS: LISINOPRIL 10 MG TAB PO SCH (08:47)
[2017-01-14] MEDS: SUCRALFATE 1 GM TAB PO SCH ×2 (08:47→21:16)
[2017-01-14 11:49] LABS: Hemoglobin A1C 10.1 % (4.2-6.1)
[2017-01-14] MEDS: MULTIVITAMINS, THERA 1 EACH TAB PO SCH (11:51)
[2017-01-14 12:07] LABS: Glucose,Whole Blood 409 mg/dL (75-99)
[2017-01-14] MEDS: IBUPROFEN 800 MG TAB PO PRN (13:30)
[2017-01-14 13:32] VITALS: BMI 23.3
--- NOTE | 2017-01-14 15:16 | HP ---
CHIEF COMPLAINT: A 57-year-old white male with diabetic ketoacidosis. HISTORY OF PRESENT ILLNESS: This 57-year-old -[place] male with increased abdominal pain, nausea, vomiting. He is noncompliant with all medications. He has gastroparesis, which is being worked up. He has a guardian. No one ( ) guardian at this time. he denies any fever, chills, shortness of breath, chest pain, neck pain. He states he has abdominal pain. He stops eating. MEDICATIONS: NovoLog, Accu-Cheks a.c. and at bedtime, Lantus 25 mg daily, Multivitamin daily, folic acid 1 mg daily, Neurontin 100 t.i.d., Motrin 800 q.8 , Zestril 10 mg daily, metoprolol 25 b.i.d., Carafate 1 gram b.i.d., Norvasc 5 mg daily, Desyrel 100 daily. ALLERGIES: NEGATIVE. Fourteen point review of systems negative except for mentioned in HPI. PAST MEDICAL HISTORY: Heart failure, diabetes mellitus, hypertension, pneumonia , renal disease, rheumatoid arthritis, skin disorder, poorly controlled diabetes , gastroparesis, multiple admissions, noncompliant as outpatient. Ejection fraction 50%. Renal disease stage III. Normocytic chronic anemia, rheumatoid arthritis, degenerative joint disease, chronic back pain, osteoarthritis, eczema , psoriasis, urinary tract infection, cocaine abuse and alcohol abuse. SURGERY: Adenoidectomy, tonsillectomy, ( ) 2008, EGD, right toe amputation, ( ) second toe. FAMILY HISTORY: Father with diabetes mellitus, hypertension. Mother psychiatric issues. PHYSICAL EXAM: Vital signs stable. Afebrile. CARDIOVASCULAR: S1, S2. LUNGS: Transmitted upper airway sounds. GI: Soft. HEMATOLOGIC: Negative Homans. PSYCH: Fair mood and affect. NEUROLOGIC: Alert and oriented x3. OPHTHALMOLOGIC: Pupils equal, round and reactive to light and accommodation. Temperature 98.9, respiratory 16 to 18, blood pressure 142/81. EKG; sinus rhythm. ASSESSMENT: 1. Diabetic ketoacidosis, noncompliants. 2. Acute diabetic gastroparesis with abdominal pain. PLAN: Continue with current treatment. Possible discharge home to [facility] for diabetic gastroparesis, hyponatremia will be followed and monitored closely. Hyperkalemia monitor closely. [facility]
[2017-01-14 16:58] LABS: Glucose,Whole Blood 381 mg/dL (75-99)
[2017-01-14 20:04] LABS: Glucose,Whole Blood 311 mg/dL (75-99)
[2017-01-14] MEDS: traZODone HCL 100 MG TAB PO SCH (21:16)
[2017-01-14 23:03] VITALS: RESP 16
[2017-01-15] MEDS: IBUPROFEN 800 MG TAB PO PRN (02:40)
[2017-01-15 07:15] LABS: Glucose,Whole Blood 117 mg/dL (75-99)
[2017-01-15] MEDS: INSULIN LISPRO (humaLOG) 300 UNIT/3 ML VIAL SQ SCH ×2 (07:52→13:11)
[2017-01-15] MEDS: PANTOPRAZOLE 40 MG TABLET PO SCH (07:56)
[2017-01-15] MEDS: amLODIPine 5 MG TAB PO SCH (07:57)
[2017-01-15] MEDS: LISINOPRIL 10 MG TAB PO SCH (07:57)
[2017-01-15] MEDS: GABAPENTIN 100 MG CAP PO SCH ×2 (07:57→15:15)
[2017-01-15] MEDS: FOLIC ACID 1 MG TAB PO SCH (07:57)
[2017-01-15] MEDS: METOPROLOL TARTRATE 25 MG TAB PO SCH (07:58)
[2017-01-15] MEDS: CARBAMIDE PEROXIDE 6.5% DROPS 15 ML BTL RIGHT EAR SCH (07:58)
[2017-01-15] MEDS: SUCRALFATE 1 GM TAB PO SCH (07:58)
[2017-01-15] MEDS: MULTIVITAMINS, THERA 1 EACH TAB PO SCH (07:58)
[2017-01-15] MEDS: INSULIN GLARGINE 100 UNIT/ML 10 ML VIAL SQ SCH (08:02)
[2017-01-15] MEDS: traMADol 50 MG TAB PO PRN (08:04)
[2017-01-15 14:07] LABS: Glucose,Whole Blood 244 mg/dL (75-99)
[2017-01-15 14:56] VITALS: BP 136/65; PULSE 60; TEMP 98.4
--- NOTE | 2017-01-16 09:25 | PN ---
SUBJECTIVE: 57 -year-old white male admitted with diabetic ketoacidosis. ( ) Accu-Chek ( ) protocol. Abdominal pain has improved. He eating regular foods. Eating his full tray. Cardiovascular: S1, S2. Lungs transmitted upper airway sounds. Hematological: Negative Homans. Psych: Fair mood and affect. Assessment: 1. Diabetic ketoacidosis. 2. Gastroparesis. 3. Noncompliance. Continue Accu-Chek protocol a.c. and q.h.s. Possible discharge home in the next 24 to 48 hours. BRIAND
== END 2017-01-15 16:50 | disposition other institution (70) | DRG 638 ==
LOC: EC 09:02 → 6SEL 14:04 → 5MS5E 01-14 13:54
PROVIDERS: ADMIT Family Medicine; ATTEND Family Medicine
DX: E13.10 Other specified diabetes mellitus with ketoacidosis without coma (principal); I13.0 Hypertensive heart and chronic kidney disease with heart failure and stage 1 through stage 4 chronic kidney disease, or unspecified chronic kidney disease; N18.3 Chronic kidney disease, stage 3 (moderate); I50.9 Heart failure, unspecified; E87.1 Hypo-osmolality and hyponatremia; E11.43 Type 2 diabetes mellitus with diabetic autonomic (poly)neuropathy; K31.84 Gastroparesis; E87.5 Hyperkalemia; E11.65 Type 2 diabetes mellitus with hyperglycemia; M06.9 Rheumatoid arthritis, unspecified; M19.90 Unspecified osteoarthritis, unspecified site; M54.9 Dorsalgia, unspecified; G89.29 Other chronic pain; E11.22 Type 2 diabetes mellitus with diabetic chronic kidney disease; L30.9 Dermatitis, unspecified; L40.9 Psoriasis, unspecified; T38.3X6A Underdosing of insulin and oral hypoglycemic [antidiabetic] drugs, initial encounter; T43.216A Underdosing of selective serotonin and norepinephrine reuptake inhibitors, initial encounter; T42.6X6A Underdosing of other antiepileptic and sedative-hypnotic drugs, initial encounter; T39.316A Underdosing of propionic acid derivatives, initial encounter; T46.4X6A Underdosing of angiotensin-converting-enzyme inhibitors, initial encounter; T44.7X6A Underdosing of beta-adrenoreceptor antagonists, initial encounter; T47.1X6A Underdosing of other antacids and anti-gastric-secretion drugs, initial encounter; T46.1X6A Underdosing of calcium-channel blockers, initial encounter; Z79.4 Long term (current) use of insulin; Z79.1 Long term (current) use of non-steroidal anti-inflammatories (NSAID); Z79.899 Other long term (current) drug therapy; Z87.01 Personal history of pneumonia (recurrent); Z89.421 Acquired absence of other right toe(s); Z90.49 Acquired absence of other specified parts of digestive tract; Z83.3 Family history of diabetes mellitus; Z82.49 Family history of ischemic heart disease and other diseases of the circulatory system; Z81.8 Family history of other mental and behavioral disorders; Z87.2 Personal history of diseases of the skin and subcutaneous tissue; Z86.14 Personal history of Methicillin resistant Staphylococcus aureus infection
CPT/HCPCS: 36415; 74000; 80051; 80053; 80306; 81003; 82009; 82150; 82565; 82947; 83036; 83690; 84100; 84520; 85025; 93005; 96361; 96374; 99285

== ENCOUNTER 2017-02-03 04:41 | Emergency (ER) | payer OTHER ==
[2017-02-03 04:45] VITALS: RESP 16
[2017-02-03 04:49] LABS: Glucose,Whole Blood 103 mg/dL (75-99)
[2017-02-03 05:39] LABS: Glucose,Whole Blood 68 mg/dL (75-99)
[2017-02-03 06:28] LABS: Glucose,Whole Blood 78 mg/dL (75-99)
--- NOTE | 2017-02-03 06:37 | ED ---
General Adult HPI - General Chief complaint: Recheck/Abnormal Lab/Rx Stated complaint: low blood sugar Source: EMS, RN notes reviewed, old records reviewed Mode of arrival: EMS Limitations: no limitations - History of Present Illness Initial comments: This is a 57-year-old male coming in the ER for evaluation. Patient is here for evaluation of low blood sugar. Patient's 40 by EMS for low blood sugar. Patient has had improvement in blood sugar, is able to eat. Patient is diabetic and takes insulin. No oral Medications - Related Data Home Medications Medication Instructions Recorded Confirmed Insulin Aspart [NovoLOG] See Protocol SQ ACHS 01/04/17 02/03/17 Insulin Glargine [Lantus] 20 unit SQ QAM 01/04/17 02/03/17 Multivitamins, Thera [Multivitamin 1 tab PO DAILY 01/04/17 02/03/17 (formulary)] Folic Acid 1 mg PO DAILY 01/13/17 02/03/17 Gabapentin [Neurontin] 100 mg PO TID 01/13/17 02/03/17 Ibuprofen [Motrin] 800 mg PO TID PRN 01/13/17 02/03/17 Lisinopril [Zestril] 10 mg PO DAILY 01/13/17 02/03/17 Metoprolol Tartrate [Lopressor] 25 mg PO BID 01/13/17 02/03/17 Sucralfate [Carafate] 1 gm PO TID 01/13/17 02/03/17 amLODIPine [Norvasc] 5 mg PO DAILY 01/13/17 02/03/17 traZODone HCL [Desyrel] 100 mg PO HS 01/13/17 02/03/17 Previous Rx's Medication Instructions Recorded Omeprazole [PriLOSEC] 20 mg PO AC-BRKFST #30 cap 01/07/17 traMADol HCl [Ultram] 50 mg PO Q6H PRN #60 tab 01/07/17 Allergies Allergy/AdvReac Type Severity Reaction Status Date / Time No Known Allergies Allergy Verified 02/03/17 14:55 Review of Systems ROS Statement: Those systems with pertinent positive or pertinent negative responses have been documented in the HPI. ROS Other: All systems not noted in ROS Statement are negative. Past Medical History Past Medical History: Heart Failure, Diabetes Mellitus, Hypertension, Pneumonia , Renal Disease, Rheumatoid Arthritis (RA), Skin Disorder Additional Past Medical History / Comment(s): 10/20/16 thought sepsis 2ndary to R middle lobe pne, multiple admissions for dka Other hx: IDDM poorly controlled , diabetic gastroparesis, bilateral feet/hands peripheral neuropathy, blood behind both eyes, peptic ulcer disease/duodenal ulcer/gastritis with erosions, previous hospitalization for pulmonary edema and bilateral pleural effusion and subsequent evaluation showed a preserved LV function with an ejection fraction of around 50%, CKD stage III, normocytic chronic anemia, rheumatoid arthritis, DJD, chronic back pain, osteoarthritis-generalized, eczema, psoriasis, ear infections, hx of narcotic abuse, cocaine abuse and alcohol abuse. History of Any Multi-Drug Resistant Organisms: MRSA Date of last positivie culture/infection: 02/25/08 MDRO Source:: Neck Past Surgical History: Adenoidectomy, Tonsillectomy Additional Past Surgical History / Comment(s): colonoscopy 2008, EGD, lt great toe amp, and part of 2nd toe. Past Anesthesia/Blood Transfusion Reactions: No Reported Reaction Past Psychological History: No Psychological Hx Reported Smoking Status: Never smoker - Past Family History Father Family Medical History: Diabetes Mellitus, Hypertension Additional Family Medical History / Comment(s): father at the age of 82 yrs from diabetic complications. Mother Additional Family Medical History / Comment(s): pyschiatric issues. Mother is 78yrs old. General Exam Limitations: no limitations General appearance: alert, in no apparent distress Head exam: Present: atraumatic, normocephalic, normal inspection Eye exam: Present: normal appearance, PERRL, EOMI. Absent: scleral icterus, conjunctival injection, periorbital swelling ENT exam: Present: normal exam, mucous membranes moist Neck exam: Present: normal inspection. Absent: tenderness, meningismus, lymphadenopathy Respiratory exam: Present: normal lung sounds bilaterally. Absent: respiratory distress, wheezes, rales, rhonchi, stridor Cardiovascular Exam: Present: regular rate, normal rhythm, normal heart sounds. Absent: systolic murmur, diastolic murmur, rubs, gallop, clicks GI/Abdominal exam: Present: soft, normal bowel sounds. Absent: distended, tenderness, guarding, rebound, rigid Extremities exam: Present: normal inspection, full ROM, normal capillary refill. Absent: tenderness, pedal edema, joint swelling, calf tenderness Back exam: Present: normal inspection Neurological exam: Present: alert, oriented X3, CN II-XII intact Psychiatric exam: Present: normal affect, normal mood Skin exam: Present: warm, dry, intact, normal color. Absent: rash Course Vital Signs 02/03/17 02/03/17 04:42 06:46 Temperature 97.3 F L 98 F Pulse Rate 69 87 Respiratory 16 16 Rate Blood Pressure 124/66 136/76 O2 Sat by Pulse 100 97 Oximetry Medical Decision Making - Medical Decision Making 57-year-old male well-known to this facility facility coming in with low blood sugar. Patient is diabetic hypoglycemia, able to eat and tolerate oral intake. Patient can be discharged home - Lab Data Lab Results 02/03/17 02/03/17 02/03/17 Range/Units 04:45 05:36 06:25 POC Glucose (mg/dL) 103 H 68 L 78 (75-99) mg/dL POC Glu [employer] Fortino Puckett, Fortino Neil Disposition Clinical Impression: Hypoglycemia Disposition: HOME SELF-CARE Condition: Good Instructions: Hypoglycemia in a Person with Diabetes (ED) Referrals: Nimesh De Luna MD [Primary Care Provider] - 1-2 days
[2017-02-03 06:47] VITALS: BP 136/76; PULSE 87; TEMP 98
== END 2017-02-03 06:48 | disposition home or self-care (01) ==
LOC: EC 04:41
DX: E11.649 Type 2 diabetes mellitus with hypoglycemia without coma (principal); E11.42 Type 2 diabetes mellitus with diabetic polyneuropathy; E11.22 Type 2 diabetes mellitus with diabetic chronic kidney disease; I13.0 Hypertensive heart and chronic kidney disease with heart failure and stage 1 through stage 4 chronic kidney disease, or unspecified chronic kidney disease; I50.9 Heart failure, unspecified; N18.3 Chronic kidney disease, stage 3 (moderate); E11.43 Type 2 diabetes mellitus with diabetic autonomic (poly)neuropathy; K31.84 Gastroparesis; Z86.2 Personal history of diseases of the blood and blood-forming organs and certain disorders involving the immune mechanism; Z83.3 Family history of diabetes mellitus; Z79.4 Long term (current) use of insulin; Z79.899 Other long term (current) drug therapy
CPT/HCPCS: 36415; 80053; 81001; 85025; 96361; 96374; 99284; 99285

== ENCOUNTER 2017-02-03 14:50 | Emergency (ER) | payer OTHER ==
[2017-02-03 14:56] VITALS: RESP 18
[2017-02-03 15:01] LABS: Glucose,Whole Blood 103 mg/dL (75-99)
[2017-02-03] MEDS ORDERED: SODIUM CHLORIDE 0.9% 1,000 ML IV STA (15:12)
--- NOTE | 2017-02-03 15:20 | ED ---
General Adult HPI - General Chief complaint: Recheck/Abnormal Lab/Rx Stated complaint: Hypoglycemia Time Seen by Provider: 02/03/17 15:00 Source: patient Mode of arrival: ambulatory Limitations: no limitations - History of Present Illness Initial comments: This 57-year-old -[place] male presents with mental status changes. His blood sugar apparently was 47 per EMS. They gave him some glucose and is mental status improved. The patient states that he does not know why his blood sugar has dropped. He did eat a normal breakfast but did not eat lunch. He is an insulin-dependent diabetic but states that he has not taken any insulin since yesterday. He states that he feels fine at this time but has had some double and blurry vision at times today. He denies any fevers, chills, chest pain, or shortness of breath. He denies any increased activity today. He does relate that he is a very brittle diabetic and he will have significant fluctuations in his blood sugar at times. No other complaints or modifying factors. He denies any possibility that he took too much of his insulin. He does not take any oral hypoglycemic medications. - Related Data Home Medications Medication Instructions Recorded Confirmed Insulin Aspart [NovoLOG] See Protocol SQ ACHS 01/04/17 02/03/17 Insulin Glargine [Lantus] 20 unit SQ QAM 01/04/17 02/03/17 Multivitamins, Thera [Multivitamin 1 tab PO DAILY 01/04/17 02/03/17 (formulary)] Folic Acid 1 mg PO DAILY 01/13/17 02/03/17 Gabapentin [Neurontin] 100 mg PO TID 01/13/17 02/03/17 Ibuprofen [Motrin] 800 mg PO TID PRN 01/13/17 02/03/17 Lisinopril [Zestril] 10 mg PO DAILY 01/13/17 02/03/17 Metoprolol Tartrate [Lopressor] 25 mg PO BID 01/13/17 02/03/17 Sucralfate [Carafate] 1 gm PO TID 01/13/17 02/03/17 amLODIPine [Norvasc] 5 mg PO DAILY 01/13/17 02/03/17 traZODone HCL [Desyrel] 100 mg PO HS 01/13/17 02/03/17 Previous Rx's Medication Instructions Recorded Omeprazole [PriLOSEC] 20 mg PO AC-BRKFST #30 cap 01/07/17 traMADol HCl [Ultram] 50 mg PO Q6H PRN #60 tab 01/07/17 Allergies Allergy/AdvReac Type Severity Reaction Status Date / Time No Known Allergies Allergy Verified 02/03/17 14:55 Review of Systems ROS Statement: Those systems with pertinent positive or pertinent negative responses have been documented in the HPI. ROS Other: All systems not noted in ROS Statement are negative. Past Medical History Past Medical History: Heart Failure, Diabetes Mellitus, Hypertension, Pneumonia , Renal Disease, Rheumatoid Arthritis (RA), Skin Disorder Additional Past Medical History / Comment(s): 10/20/16 thought sepsis 2ndary to R middle lobe pne, multiple admissions for dka Other hx: IDDM poorly controlled , diabetic gastroparesis, bilateral feet/hands peripheral neuropathy, blood behind both eyes, peptic ulcer disease/duodenal ulcer/gastritis with erosions, previous hospitalization for pulmonary edema and bilateral pleural effusion and subsequent evaluation showed a preserved LV function with an ejection fraction of around 50%, CKD stage III, normocytic chronic anemia, rheumatoid arthritis, DJD, chronic back pain, osteoarthritis-generalized, eczema, psoriasis, ear infections, hx of narcotic abuse, cocaine abuse and alcohol abuse. History of Any Multi-Drug Resistant Organisms: MRSA Date of last positivie culture/infection: 02/25/08 MDRO Source:: Neck Past Surgical History: Adenoidectomy, Tonsillectomy Additional Past Surgical History / Comment(s): colonoscopy 2009, EGD, lt great toe amp, and part of 2nd toe. Past Anesthesia/Blood Transfusion Reactions: No Reported Reaction Past Psychological History: No Psychological Hx Reported Smoking Status: Never smoker - Past Family History Father Family Medical History: Diabetes Mellitus, Hypertension Additional Family Medical History / Comment(s): father at the age of 82 yrs from diabetic complications. Mother Additional Family Medical History / Comment(s): pyschiatric issues. Mother is 78yrs old. General Exam - General Exam Comments Initial Comments: GENERAL: The patient is well nourished and well hydrated. VITAL SIGNS: Heart rate, blood pressure, respiratory rate reviewed as recorded in nurse's notes. EYES: Pupils are round and reactive. Extraocular movements are intact. No conjunctival / lid redness or swelling. ENT: No external evidence of injury, swelling, or ecchymosis. Airway is patent. Throat is clear. NECK: Nontender. No swelling or evidence of injury. No subcutaneous emphysema. Trachea is midline. No thyroid mass. HEART: Regular rate and rhythm. Good peripheral pulses. LUNGS/CHEST: Breath sounds clear and equal bilaterally. No rales, rhonchi, or wheezes. No ecchymosis, subcutaneous emphysema, or tenderness. ABDOMEN: Abdomen soft without tenderness. No palpable masses or organomegaly. No peritoneal signs. No abdominal wall swelling or ecchymosis. EXTREMITIES: No extremity tenderness. Normal muscle tone and function. No thoracolumbar tenderness. NEUROLOGIC: Sensation is grossly intact. Cranial nerve exam reveals face is symmetrical, tongue is midline, speech is clear. SKIN: No abrasions or ecchymosis is noted. No induration or masses noted. PSYCHIATRIC: Alert and oriented. Appropriate behavior and judgment. Limitations: no limitations Course Vital Signs 02/03/17 14:52 Temperature 98 F Pulse Rate 69 Respiratory 18 Rate Blood Pressure 162/92 O2 Sat by Pulse 100 Oximetry Medical Decision Making - Medical Decision Making The patient was seen and examined. All diagnostics were reviewed. Old records are reviewed as well. An IV is started and he is hydrated. Laboratory is reviewed and overall is fairly unremarkable. His blood sugar is slightly low on recheck and receives 1 amp of D50 as well as some apple juice. He also was fed. The nurse found a bedbug on him and therefore he went through the shower/ decontamination. The the patient's Accu-Chek was low and therefore he was fed. He did receive some D50. He was watched in the emergency department for an extended period of time until his blood sugar stabilized. He was rechecked multiple times and does not appear to be in any distress and it is felt as though he is stable for discharge. He is counseled regarding his condition in detail. Return parameters are discussed. - Lab Data Result diagrams: 02/03/17 15:02/03/17 15:09 Lab Results 02/03/17 02/03/17 02/03/17 Range/Units 14:57 15:09 15:09 WBC 3.1 L (3.8-10.6) k/uL RBC 4.29 L (4.30-5.90) m/uL Hgb 13.3 (13.0-17.5) gm/dL Hct 41.5 (39.0-53.0) % MCV 96.7 (80.0-100.0) fL MCH 30.9 (25.0-35.0) pg MCHC 32.0 (31.0-37.0) g/dL RDW 14.8 (11.5-15.5) % Plt Count 266 (150-450) k/uL Neutrophils % 47 % Lymphocytes % 36 % Monocytes % 10 % Eosinophils % 4 % Basophils % 1 % Neutrophils # 1.5 (1.3-7.7) k/uL Lymphocytes # 1.1 (1.0-4.8) k/uL Monocytes # 0.3 (0-1.0) k/uL Eosinophils # 0.1 (0-0.7) k/uL Basophils # 0.0 (0-0.2) k/uL Sodium 138 (137-145) mmol/L Potassium 4.3 (3.5-5.1) mmol/L Chloride 103 (98-107) mmol/L Carbon Dioxide 27 (22-30) mmol/L Anion Gap 8 mmol/L BUN 28 H (9-20) mg/dL Creatinine 1.12 (0.66-1.25) mg/dL Est GFR (MDRD) Af Amer >60 (>60 ml/min/1.73 sqM) Est GFR (MDRD) Non-Af >60 (>60 ml/min/1.73 sqM) Glucose 92 (74-99) mg/dL POC Glucose (mg/dL) 103 H (75-99) mg/dL POC Glu Soap Chipper ID Addie Johnson Calcium 9.3 (8.4-10.2) mg/dL Total Bilirubin 0.5 (0.2-1.3) mg/dL AST 39 (17-59) U/L ALT 62 (21-72) U/L Alkaline Phosphatase 108 (38-126) U/L Total Protein 7.3 (6.3-8.2) g/dL Albumin 4.1 (3.5-5.0) g/dL Urine Color Urine Appearance (Clear) Urine pH (5.0-8.0) Ur Specific [place] (1.001-1.035) Urine Protein (Negative) Urine Glucose (UA) (Negative) Urine Ketones (Negative) Urine Blood (Negative) Urine Nitrite (Negative) Urine Bilirubin (Negative) Urine Urobilinogen (<2.0) mg/dL Ur Leukocyte Esterase (Negative) Urine RBC (0-5) /hpf Urine WBC (0-5) /hpf Urine Bacteria (None) /hpf Urine Mucus (None) /hpf Urine Yeast (Budding) (None) /hpf 02/03/17 02/03/17 02/03/17 Range/Units 16:11 16:35 16:54 WBC (3.8-10.6) k/uL RBC (4.30-5.90) m/uL Hgb (13.0-17.5) gm/dL Hct (39.0-53.0) % MCV (80.0-100.0) fL MCH (25.0-35.0) pg MCHC (31.0-37.0) g/dL RDW (11.5-15.5) % Plt Count (150-450) k/uL Neutrophils % % Lymphocytes % % Monocytes % % Eosinophils % % Basophils % % Neutrophils # (1.3-7.7) k/uL Lymphocytes # (1.0-4.8) k/uL Monocytes # (0-1.0) k/uL Eosinophils # (0-0.7) k/uL Basophils # (0-0.2) k/uL Sodium (137-145) mmol/L Potassium (3.5-5.1) mmol/L Chloride (98-107) mmol/L Carbon Dioxide (22-30) mmol/L Anion Gap mmol/L BUN (9-20) mg/dL Creatinine (0.66-1.25) mg/dL Est GFR (MDRD) Af Amer (>60 ml/min/1.73 sqM) Est GFR (MDRD) Non-Af (>60 ml/min/1.73 sqM) Glucose (74-99) mg/dL POC Glucose (mg/dL) 56 L 159 H 112 H (75-99) mg/dL POC Glu Soap Chipper ID Narendra Saha Ellie Bowling, Erinn Calcium (8.4-10.2) mg/dL Total Bilirubin (0.2-1.3) mg/dL AST (17-59) U/L ALT (21-72) U/L Alkaline Phosphatase (38-126) U/L Total Protein (6.3-8.2) g/dL Albumin (3.5-5.0) g/dL Urine Color Urine Appearance (Clear) Urine pH (5.0-8.0) Ur Specific [place] (1.001-1.035) Urine Protein (Negative) Urine Glucose (UA) (Negative) Urine Ketones (Negative) Urine Blood (Negative) Urine Nitrite (Negative) Urine Bilirubin (Negative) Urine Urobilinogen (<2.0) mg/dL Ur Leukocyte Esterase (Negative) Urine RBC (0-5) /hpf Urine WBC (0-5) /hpf Urine Bacteria (None) /hpf Urine Mucus (None) /hpf Urine Yeast (Budding) (None) /hpf 02/03/17 02/03/17 02/03/17 Range/Units 17:03 17:32 18:30 WBC (3.8-10.6) k/uL RBC (4.30-5.90) m/uL Hgb (13.0-17.5) gm/dL Hct (39.0-53.0) % MCV (80.0-100.0) fL MCH (25.0-35.0) pg MCHC (31.0-37.0) g/dL RDW (11.5-15.5) % Plt Count (150-450) k/uL Neutrophils % % Lymphocytes % % Monocytes % % Eosinophils % % Basophils % % Neutrophils # (1.3-7.7) k/uL Lymphocytes # (1.0-4.8) k/uL Monocytes # (0-1.0) k/uL Eosinophils # (0-0.7) k/uL Basophils # (0-0.2) k/uL Sodium (137-145) mmol/L Potassium (3.5-5.1) mmol/L Chloride (98-107) mmol/L Carbon Dioxide (22-30) mmol/L Anion Gap mmol/L BUN (9-20) mg/dL Creatinine (0.66-1.25) mg/dL Est GFR (MDRD) Af Amer (>60 ml/min/1.73 sqM) Est GFR (MDRD) Non-Af (>60 ml/min/1.73 sqM) Glucose (74-99) mg/dL POC Glucose (mg/dL) 78 113 H (75-99) mg/dL POC Glu Soap Chipper ID Cynthia Palomares Ellie Calcium (8.4-10.2) mg/dL Total Bilirubin (0.2-1.3) mg/dL AST (17-59) U/L ALT (21-72) U/L Alkaline Phosphatase (38-126) U/L Total Protein (6.3-8.2) g/dL Albumin (3.5-5.0) g/dL Urine Color Yellow Urine Appearance Cloudy (Clear) Urine pH 6.0 (5.0-8.0) Ur Specific [place] 1.021 (1.001-1.035) Urine Protein 1+ H (Negative) Urine Glucose (UA) 1+ H (Negative) Urine Ketones Negative (Negative) Urine Blood Negative (Negative) Urine Nitrite Negative (Negative) Urine Bilirubin Negative (Negative) Urine Urobilinogen <2.0 (<2.0) mg/dL Ur Leukocyte Esterase Negative (Negative) Urine RBC <1 (0-5) /hpf Urine WBC <1 (0-5) /hpf Urine Bacteria Rare H (None) /hpf Urine Mucus Rare H (None) /hpf Urine Yeast (Budding) Rare H (None) /hpf Disposition Clinical Impression: Hypoglycemia, Infestation by bed bug, Mental status change resolved, Diabetes Disposition: HOME SELF-CARE Condition: Good Instructions: Hypoglycemia in a Person with Diabetes (ED) Referrals: Nimesh De Luna MD [Primary Care Provider] - 1-2 days Time of Disposition: 19:24
[2017-02-03 15:33] LABS: Basophils % (A) 1 %; CHCM 33.2; Eosinophils # (A) 0.1 k/uL (0-0.7); Eosinophils % (A) 4 %; HCT 41.5 % (39.0-53.0); HDW 2.42; HGB 13.3 gm/dL (13.0-17.5); Luc # (Auto) 0.08; Luc % (Auto) 3; Lymphocytes # (A) 1.1 k/uL (1.0-4.8); Lymphocytes % (A) 36 %; MCH 30.9 pg (25.0-35.0); MCV 96.7 fL (80.0-100.0); Monocytes # (A) 0.3 k/uL (0-1.0); Monocytes % (A) 10 %; Neutrophils # (A) 1.5 k/uL (1.3-7.7); Neutrophils % (A) 47 %; RBC 4.29 m/uL (4.30-5.90); RDW 14.8 % (11.5-15.5); WBC 3.1 k/uL (3.8-10.6); WBC (Perox) 3.24
[2017-02-03 15:45] LABS: ALT 62 U/L (21-72); AST 39 U/L (17-59); Alkaline Phosphatase 108 U/L (38-126); Anion Gap 8 mmol/L; Blood Urea Nitrogen 28 mg/dL (9-20); Calcium 9.3 mg/dL (8.4-10.2); Carbon Dioxide 27 mmol/L (22-30); Chloride 103 mmol/L (98-107); Glucose 92 mg/dL (74-99); Non-African American GFR(MDRD) >60 (>60 ml/min/1.73 sqM); Potassium 4.3 mmol/L (3.5-5.1); Sodium 138 mmol/L (137-145); Total Bilirubin 0.5 mg/dL (0.2-1.3); Total Protein 7.3 g/dL (6.3-8.2)
[2017-02-03] MEDS: DEXTROSE 50%-WATER 50 ML SYRINGE IVP STA ×2 (16:17→18:01)
[2017-02-03 16:27] LABS: Glucose,Whole Blood 56 mg/dL (75-99)
[2017-02-03 16:37] LABS: Glucose,Whole Blood 159 mg/dL (75-99)
[2017-02-03 16:57] LABS: Glucose,Whole Blood 112 mg/dL (75-99)
[2017-02-03 17:08] LABS: Appearance,Urine Cloudy (Clear); Bacteria,Urine Rare /hpf; Bilirubin,Urine Negative (Negative); Glucose,Urine (UA) 1+ (Negative); Ketones,Urine Negative (Negative); Leukocyte Esterase,Urine Negative (Negative); Mucus,Urine Rare /hpf; Nitrite,Urine Negative (Negative); Particle Count 1756; Protein,Urine 1+ (Negative); RBC,Urine <1 /hpf (0-5); Specific Gravity,Urine 1.021 (1.001-1.035); UA Billing (MACRO vs. MICRO) MICRO; Urobilinogen,Urine <2.0 mg/dL (<2.0); WBC,Urine <1 /hpf (0-5)
[2017-02-03 17:59] LABS: Glucose,Whole Blood 78 mg/dL (75-99)
[2017-02-03 18:58] LABS: Glucose,Whole Blood 113 mg/dL (75-99)
[2017-02-03 19:26] LABS: Glucose,Whole Blood 139 mg/dL (75-99)
[2017-02-03 19:46] VITALS: BP 102/77; PULSE 100; TEMP 98.7
== END 2017-02-03 19:47 | disposition home or self-care (01) ==
LOC: EC 14:50
DX: E11.649 Type 2 diabetes mellitus with hypoglycemia without coma (principal); B88.8 Other specified infestations; I11.0 Hypertensive heart disease with heart failure; I50.9 Heart failure, unspecified; M06.9 Rheumatoid arthritis, unspecified; Z79.4 Long term (current) use of insulin; Z79.899 Other long term (current) drug therapy
CPT/HCPCS: 36415; 80053; 81001; 85025; 96361; 96374; 99285

== ENCOUNTER 2017-02-15 08:22 | Inpatient (IN) | payer OTHER ==
[2017-02-15] MEDS ORDERED: SODIUM CHLORIDE 0.9% 1,000 ML IV STA (08:31)
--- NOTE | 2017-02-15 08:57 | ED ---
General Adult HPI - General Stated complaint: HYPERGLYCEMIA Time Seen by Provider: 02/15/17 08:26 Source: patient, RN notes reviewed Mode of arrival: ambulatory - History of Present Illness Initial comments: 57-year-old male presents emergency Department with a chief complaint of nausea vomiting. Patient does not recall his last glucose. He states just does not feel well. Patient has a long history of a high glucose. Patient states he is here because he just does not seem to be getting better at home. Patient isn't to abdominal discomfort with this much like his chronic abdominal discomfort when this happens. Patient denies any recent fever, chills, shortness of breath , chest pain, back pain, numbness or tingling, dysuria or hematuria, constipation or diarrhea, headaches or visual changes, or any other current symptoms. - Related Data Home Medications Medication Instructions Recorded Confirmed Insulin Aspart [NovoLOG] See Protocol SQ ACHS 01/04/17 02/15/17 Insulin Glargine [Lantus] 20 unit SQ QAM 01/04/17 02/15/17 Multivitamins, Thera [Multivitamin 1 tab PO DAILY 01/04/17 02/15/17 (formulary)] Folic Acid 1 mg PO DAILY 01/13/17 02/15/17 Gabapentin [Neurontin] 100 mg PO TID 01/13/17 02/15/17 Ibuprofen [Motrin] 800 mg PO TID PRN 01/13/17 02/15/17 Lisinopril [Zestril] 10 mg PO DAILY 01/13/17 02/15/17 Metoprolol Tartrate [Lopressor] 25 mg PO BID 01/13/17 02/15/17 Sucralfate [Carafate] 1 gm PO TID 01/13/17 02/15/17 amLODIPine [Norvasc] 5 mg PO DAILY 01/13/17 02/15/17 traZODone HCL [Desyrel] 100 mg PO HS 01/13/17 02/15/17 Previous Rx's Medication Instructions Recorded Omeprazole [PriLOSEC] 20 mg PO AC-BRKFST #30 cap 01/07/17 traMADol HCl [Ultram] 50 mg PO Q6H PRN #60 tab 01/07/17 Allergies Allergy/AdvReac Type Severity Reaction Status Date / Time No Known Allergies Allergy Verified 02/15/17 12:05 Review of Systems ROS Statement: Those systems with pertinent positive or pertinent negative responses have been documented in the HPI. ROS Other: All systems not noted in ROS Statement are negative. Past Medical History Past Medical History: Heart Failure, Diabetes Mellitus, Hypertension, Pneumonia , Renal Disease, Rheumatoid Arthritis (RA), Skin Disorder Additional Past Medical History / Comment(s): 10/20/16 thought sepsis 2ndary to R middle lobe pne, multiple admissions for dka Other hx: IDDM poorly controlled , diabetic gastroparesis, bilateral feet/hands peripheral neuropathy, blood behind both eyes, peptic ulcer disease/duodenal ulcer/gastritis with erosions, previous hospitalization for pulmonary edema and bilateral pleural effusion and subsequent evaluation showed a preserved LV function with an ejection fraction of around 50%, CKD stage III, normocytic chronic anemia, rheumatoid arthritis, DJD, chronic back pain, osteoarthritis-generalized, eczema, psoriasis, ear infections, hx of narcotic abuse, cocaine abuse and alcohol abuse. History of Any Multi-Drug Resistant Organisms: MRSA Date of last positivie culture/infection: 02/25/08 MDRO Source:: Neck Past Surgical History: Adenoidectomy, Tonsillectomy Additional Past Surgical History / Comment(s): colonoscopy 2009, EGD, lt great toe amp, and part of 2nd toe. Past Anesthesia/Blood Transfusion Reactions: No Reported Reaction Past Psychological History: No Psychological Hx Reported Smoking Status: Never smoker - Past Family History Father Family Medical History: Diabetes Mellitus, Hypertension Additional Family Medical History / Comment(s): father at the age of 82 yrs from diabetic complications. Mother Additional Family Medical History / Comment(s): pyschiatric issues. Mother is 78yrs old. General Exam General appearance: alert, in no apparent distress Head exam: Present: atraumatic, normocephalic, normal inspection ENT exam: Present: normal exam, mucous membranes moist Neck exam: Present: normal inspection. Absent: tenderness, meningismus, lymphadenopathy Respiratory exam: Present: normal lung sounds bilaterally. Absent: respiratory distress, wheezes, rales, rhonchi, stridor Cardiovascular Exam: Present: regular rate, normal rhythm, normal heart sounds. Absent: systolic murmur, diastolic murmur, rubs, gallop, clicks GI/Abdominal exam: Present: soft, normal bowel sounds. Absent: distended, tenderness, guarding, rebound, rigid Neurological exam: Present: alert, oriented X3 Psychiatric exam: Present: normal affect, normal mood Skin exam: Present: warm, dry, intact, normal color. Absent: rash Course Vital Signs 02/15/17 02/15/17 02/15/17 08:47 09:04 10:40 Temperature 96.8 F L Pulse Rate 104 H 93 101 H Respiratory 16 18 18 Rate Blood Pressure 203/95 181/86 O2 Sat by Pulse 94 L 100 100 Oximetry Medical Decision Making - Medical Decision Making 57-year-old male presents for abdominal pain nausea vomiting. this patient does appear to be in DKA. This was positive hemoglobin is stable we have not seen blood stents. At this time we did start the patient on an insulin drip as well as fluid hydration. We will admit the patient at this time for continued care. Patient in agreement with the plan. Dr. Callahan spoked Dr. De Luna regarding the admission. - Lab Data Result diagrams: 02/15/17 11:50 02/15/17 09:57 Lab Results 02/15/17 02/15/17 02/15/17 Range/Units 09:57 09:57 10:13 WBC (3.8-10.6) k/uL RBC (4.30-5.90) m/uL Hgb (13.0-17.5) gm/dL Hct (39.0-53.0) % MCV (80.0-100.0) fL MCH (25.0-35.0) pg MCHC (31.0-37.0) g/dL RDW (11.5-15.5) % Plt Count (150-450) k/uL Neutrophils % % Lymphocytes % % Monocytes % % Eosinophils % % Basophils % % Neutrophils # (1.3-7.7) k/uL Lymphocytes # (1.0-4.8) k/uL Monocytes # (0-1.0) k/uL Eosinophils # (0-0.7) k/uL Basophils # (0-0.2) k/uL Hypochromasia Macrocytosis PT 10.5 (9.0-12.0) sec INR 1.0 (<1.2) APTT 23.8 (22.0-30.0) sec VBG pH (7.31-7.41) VBG pCO2 (37-51) mmHg VBG HCO3 (24-28) mmol/L Sodium 137 (137-145) mmol/L Potassium 5.5 H (3.5-5.1) mmol/L Chloride 99 (98-107) mmol/L Carbon Dioxide 8 L* (22-30) mmol/L Anion Gap 30 mmol/L BUN 20 (9-20) mg/dL Creatinine 1.46 H (0.66-1.25) mg/dL Est GFR (MDRD) Af Amer >60 (>60 ml/min/1.73 sqM) Est GFR (MDRD) Non-Af 50 (>60 ml/min/1.73 sqM) Glucose 607 H* (74-99) mg/dL POC Glucose (mg/dL) (75-99) mg/dL POC Glu Drug Safety Specialist ID Plasma Lactic Acid Eliazar (0.7-2.0) mmol/L Calcium 10.1 (8.4-10.2) mg/dL Phosphorus 6.0 H (2.5-4.5) mg/dL Magnesium 1.9 (1.6-2.3) mg/dL Total Bilirubin 0.9 (0.2-1.3) mg/dL AST 33 (17-59) U/L ALT 38 (21-72) U/L Alkaline Phosphatase 145 H (38-126) U/L Total Protein 7.9 (6.3-8.2) g/dL Albumin 4.7 (3.5-5.0) g/dL Amylase 88 (30-110) U/L Lipase 32 (23-300) U/L Gastric Occult Blood Positive (Negative) Acetone, Qual Positive (Negative) 02/15/17 02/15/17 02/15/17 Range/Units 10:13 10:13 11:34 WBC (3.8-10.6) k/uL RBC (4.30-5.90) m/uL Hgb (13.0-17.5) gm/dL Hct (39.0-53.0) % MCV (80.0-100.0) fL MCH (25.0-35.0) pg MCHC (31.0-37.0) g/dL RDW (11.5-15.5) % Plt Count (150-450) k/uL Neutrophils % % Lymphocytes % % Monocytes % % Eosinophils % % Basophils % % Neutrophils # (1.3-7.7) k/uL Lymphocytes # (1.0-4.8) k/uL Monocytes # (0-1.0) k/uL Eosinophils # (0-0.7) k/uL Basophils # (0-0.2) k/uL Hypochromasia Macrocytosis PT (9.0-12.0) sec INR (<1.2) APTT (22.0-30.0) sec VBG pH 7.13 L* (7.31-7.41) VBG pCO2 36 L (37-51) mmHg VBG HCO3 11 L (24-28) mmol/L Sodium (137-145) mmol/L Potassium (3.5-5.1) mmol/L Chloride (98-107) mmol/L Carbon Dioxide (22-30) mmol/L Anion Gap mmol/L BUN (9-20) mg/dL Creatinine (0.66-1.25) mg/dL Est GFR (MDRD) Af Amer (>60 ml/min/1.73 sqM) Est GFR (MDRD) Non-Af (>60 ml/min/1.73 sqM) Glucose (74-99) mg/dL POC Glucose (mg/dL) 520 H (75-99) mg/dL POC Glu Drug Safety Specialist ID Raquel Carr Plasma Lactic Acid [place]iazar 1.2 (0.7-2.0) mmol/L Calcium (8.4-10.2) mg/dL Phosphorus (2.5-4.5) mg/dL Magnesium (1.6-2.3) mg/dL Total Bilirubin (0.2-1.3) mg/dL AST (17-59) U/L ALT (21-72) U/L Alkaline Phosphatase (38-126) U/L Total Protein (6.3-8.2) g/dL Albumin (3.5-5.0) g/dL Amylase (30-110) U/L Lipase (23-300) U/L Gastric Occult Blood (Negative) Acetone, Qual (Negative) 02/15/17 Range/Units 11:50 WBC 14.3 H (3.8-10.6) k/uL RBC 4.19 L (4.30-5.90) m/uL Hgb 13.0 (13.0-17.5) gm/dL Hct 43.4 (39.0-53.0) % MCV 103.7 H D (80.0-100.0) fL MCH 31.1 (25.0-35.0) pg MCHC 30.0 L (31.0-37.0) g/dL RDW 13.8 (11.5-15.5) % Plt Count 297 (150-450) k/uL Neutrophils % 86 % Lymphocytes % 7 % Monocytes % 5 % Eosinophils % 0 % Basophils % 0 % Neutrophils # 12.3 H (1.3-7.7) k/uL Lymphocytes # 1.0 (1.0-4.8) k/uL Monocytes # 0.8 (0-1.0) k/uL Eosinophils # 0.0 (0-0.7) k/uL Basophils # 0.0 (0-0.2) k/uL Hypochromasia Marked Macrocytosis Slight PT (9.0-12.0) sec INR (<1.2) APTT (22.0-30.0) sec VBG pH (7.31-7.41) VBG pCO2 (37-51) mmHg VBG HCO3 (24-28) mmol/L Sodium (137-145) mmol/L Potassium (3.5-5.1) mmol/L Chloride (98-107) mmol/L Carbon Dioxide (22-30) mmol/L Anion Gap mmol/L BUN (9-20) mg/dL Creatinine (0.66-1.25) mg/dL Est GFR (MDRD) Af Amer (>60 ml/min/1.73 sqM) Est GFR (MDRD) Non-Af (>60 ml/min/1.73 sqM) Glucose (74-99) mg/dL POC Glucose (mg/dL) (75-99) mg/dL POC Glu Drug Safety Specialist ID Plasma Lactic Acid Eliazar (0.7-2.0) mmol/L Calcium (8.4-10.2) mg/dL Phosphorus (2.5-4.5) mg/dL Magnesium (1.6-2.3) mg/dL Total Bilirubin (0.2-1.3) mg/dL AST (17-59) U/L ALT (21-72) U/L Alkaline Phosphatase (38-126) U/L Total Protein (6.3-8.2) g/dL Albumin (3.5-5.0) g/dL Amylase (30-110) U/L Lipase (23-300) U/L Gastric Occult Blood (Negative) Acetone, Qual (Negative) Disposition Clinical Impression: Vomiting, Hypertension, Uncontrolled diabetes mellitus, DKA (diabetic ketoacidoses) Disposition: ADMITTED IP TO THIS [facility] Condition: Stable Referrals: Nimesh De Luna MD [Primary Care Provider] - 1-2 days Decision Date: 02/15/17 Decision Time: 12:10
[2017-02-15] MEDS ORDERED: FAMOTIDINE 20 MG/2 ML VIAL IV STA (10:21)
[2017-02-15] MEDS ORDERED: ONDANSETRON 4 MG/2 ML VIAL IVP STA (10:21)
[2017-02-15 10:37] LABS: Amylase 88 U/L (30-110); Calcium 10.1 mg/dL (8.4-10.2); Chloride 99 mmol/L (98-107); Non-African American GFR(MDRD) 50 (>60 ml/min/1.73 sqM); Sodium 137 mmol/L (137-145); Total Bilirubin 0.9 mg/dL (0.2-1.3); Total Protein 7.9 g/dL (6.3-8.2)
[2017-02-15 10:44] LABS: Anion Gap 30 mmol/L
[2017-02-15 10:47] LABS: Carbon Dioxide 8 mmol/L (22-30); Glucose 607 mg/dL (74-99)
[2017-02-15 10:51] LABS: Blood Urea Nitrogen 20 mg/dL (9-20); Magnesium 1.9 mg/dL (1.6-2.3); Potassium 5.5 mmol/L (3.5-5.1)
[2017-02-15 10:52] LABS: AST 33 U/L (17-59)
[2017-02-15 10:53] LABS: ALT 38 U/L (21-72); Alkaline Phosphatase 145 U/L (38-126)
[2017-02-15 11:00] LABS: Partial Thromboplastin Time 23.8 sec (22.0-30.0); Prothrombin Time 10.5 sec (9.0-12.0)
[2017-02-15 11:02] LABS: VBG PH 7.13 (7.31-7.41)
[2017-02-15] MEDS: SODIUM CHLORIDE 0.9% 1,000 ML IV SCH ×3 (11:21→21:52)
[2017-02-15] MEDS: INSULIN REGULAR 100 UNIT in SODIUM CHLORIDE 0.9% 100 ML IV SCH ×2 (11:30→21:19)
[2017-02-15 11:39] LABS: Glucose,Whole Blood 520 mg/dL (75-99)
[2017-02-15 11:59] LABS: Basophils % (A) 0 %; CH 30.4; CHCM 29.5; Eosinophils % (A) 0 %; HCT 43.4 % (39.0-53.0); HDW 2.74; Hypochromasia Marked; Luc # (Auto) 0.14; Luc % (Auto) 1; Lymphocytes % (A) 7 %; MCH 31.1 pg (25.0-35.0); Macrocytosis Slight; Mean Platelet Volume 8.5; Monocytes # (A) 0.8 k/uL (0-1.0); Monocytes % (A) 5 %; Neutrophils # (A) 12.3 k/uL (1.3-7.7); Neutrophils % (A) 86 %; RBC 4.19 m/uL (4.30-5.90); RDW 13.8 % (11.5-15.5); WBC 14.3 k/uL (3.8-10.6); WBC (Perox) 15.16
[2017-02-15 12:02] LABS: MCV 103.7 fL (80.0-100.0)
[2017-02-15] MEDS ORDERED: ACETAMINOPHEN TAB 325 MG TAB PO PRN (12:07)
[2017-02-15] MEDS ORDERED: NALOXONE 0.4 MG/ML 1 ML VIAL IV PRN (12:07)
[2017-02-15] MEDS ORDERED: METOCLOPRAMIDE 5 MG/ML 2 ML VIAL IVP STA (12:20)
[2017-02-15 12:37] LABS: Glucose,Whole Blood 518 mg/dL (75-99)
[2017-02-15 14:52] LABS: Blood Urea Nitrogen 20 mg/dL (9-20); Chloride 107 mmol/L (98-107); Non-African American GFR(MDRD) 54 (>60 ml/min/1.73 sqM); Phosphorous 5.5 mg/dL (2.5-4.5); Potassium 5.9 mmol/L (3.5-5.1); Sodium 142 mmol/L (137-145)
[2017-02-15 15:04] LABS: Glucose 572 mg/dL (74-99)
[2017-02-15 15:05] LABS: Carbon Dioxide <5 mmol/L (22-30)
[2017-02-15 15:11] LABS: Glucose,Whole Blood 507 mg/dL (75-99)
[2017-02-15 16:27] LABS: Glucose,Whole Blood 385 mg/dL (75-99)
[2017-02-15] MEDS: ONDANSETRON 4 MG/2 ML VIAL IVP PRN (17:01)
[2017-02-15] MEDS: METOPROLOL TARTRATE 25 MG TAB PO SCH (17:02)
[2017-02-15] MEDS: SUCRALFATE 1 GM TAB PO SCH ×2 (17:02→22:05)
[2017-02-15] MEDS: GABAPENTIN 100 MG CAP PO SCH ×2 (17:03→22:05)
[2017-02-15 17:26] LABS: Glucose,Whole Blood 424 mg/dL (75-99)
[2017-02-15 18:27] LABS: Glucose,Whole Blood 277 mg/dL (75-99)
[2017-02-15 18:54] LABS: Anion Gap 28 mmol/L; Blood Urea Nitrogen 19 mg/dL (9-20); Chloride 111 mmol/L (98-107); Glucose 326 mg/dL (74-99); Non-African American GFR(MDRD) 56 (>60 ml/min/1.73 sqM); Phosphorous 4.3 mg/dL (2.5-4.5); Sodium 145 mmol/L (137-145)
[2017-02-15 19:00] LABS: Potassium 7.1 mmol/L (3.5-5.1)
[2017-02-15] MEDS ORDERED: D5-0.45% NACL WITH KCL 20MEQ/L 1,000 ML IV SCH (19:00)
[2017-02-15 19:01] LABS: Carbon Dioxide 6 mmol/L (22-30)
[2017-02-15 19:10] LABS: Glucose,Whole Blood 248 mg/dL (75-99)
[2017-02-15 20:06] LABS: Glucose,Whole Blood 219 mg/dL (75-99)
[2017-02-15] MEDS ORDERED: SODIUM BICARB 8.4% 50 ML SYR (1 MEQ/ML) IV STA ×2 (21:04→21:50)
[2017-02-15] MEDS ORDERED: FUROSEMIDE 10 MG/ML 4 ML VIAL IV STA ×2 (21:08→21:53)
[2017-02-15 21:15] LABS: Glucose,Whole Blood 240 mg/dL (75-99)
[2017-02-15] MEDS ORDERED: SODIUM CHLORIDE 0.45% 1,000 ML IV SCH (21:15)
[2017-02-15] MEDS: CALCIUM GLUCONATE 1,000 MG in SODIUM CHLORIDE 0.9% 100 ML IVPB ONE ×2 (21:56→22:04)
[2017-02-15] MEDS: traZODone HCL 100 MG TAB PO SCH (22:05)
[2017-02-15 22:17] LABS: Glucose,Whole Blood 162 mg/dL (75-99)
[2017-02-15 23:02] LABS: Glucose,Whole Blood 136 mg/dL (75-99)
[2017-02-15] MEDS: traMADol 50 MG TAB PO PRN (23:18)
[2017-02-15 23:48] LABS: Glucose,Whole Blood 103 mg/dL (75-99)
[2017-02-16 00:16] LABS: Anion Gap 17 mmol/L; Blood Urea Nitrogen 20 mg/dL (9-20); Calcium 10.4 mg/dL (8.4-10.2); Carbon Dioxide 16 mmol/L (22-30); Chloride 113 mmol/L (98-107); Creatine Kinase 323 U/L (55-170); Glucose 118 mg/dL (74-99); Non-African American GFR(MDRD) >60 (>60 ml/min/1.73 sqM); Phosphorous 3.1 mg/dL (2.5-4.5); Sodium 146 mmol/L (137-145)
[2017-02-16 00:26] LABS: Potassium 5.8 mmol/L (3.5-5.1)
[2017-02-16 00:36] LABS: Glucose,Whole Blood 101 mg/dL (75-99)
[2017-02-16] MEDS ORDERED: DEXTROSE 5%-0.45% NACL 1,000 ML IV SCH (00:45)
[2017-02-16 02:02] LABS: Glucose,Whole Blood 67 mg/dL (75-99)
[2017-02-16] MEDS ORDERED: DEXTROSE 10 % IN WATER 250 ML IV STA ×4 (02:10→06:33)
[2017-02-16 02:31] LABS: Glucose,Whole Blood 62 mg/dL (75-99)
[2017-02-16 02:47] LABS: Glucose,Whole Blood 62 mg/dL (75-99)
[2017-02-16] MEDS ORDERED: GLUCAGON 1 MG/ML VIAL ONE (03:03)
[2017-02-16 03:26] LABS: Glucose,Whole Blood 72 mg/dL (75-99)
[2017-02-16 04:22] LABS: Glucose,Whole Blood 73 mg/dL (75-99)
[2017-02-16 04:42] LABS: Basophils % (A) 0 %; CH 32.2; CHCM 32.4; Eosinophils # (A) 0.1 k/uL (0-0.7); Eosinophils % (A) 1 %; HCT 42.8 % (39.0-53.0); HDW 2.69; HGB 13.5 gm/dL (13.0-17.5); Luc # (Auto) 0.16; Luc % (Auto) 2; Lymphocytes # (A) 1.4 k/uL (1.0-4.8); Lymphocytes % (A) 14 %; MCH 31.6 pg (25.0-35.0); MCHC 31.6 g/dL (31.0-37.0); Macrocytosis Slight; Mean Platelet Volume 7.7; Monocytes # (A) 0.7 k/uL (0-1.0); Monocytes % (A) 7 %; Neutrophils # (A) 7.9 k/uL (1.3-7.7); Neutrophils % (A) 77 %; RBC 4.28 m/uL (4.30-5.90); RDW 14.8 % (11.5-15.5); WBC 10.3 k/uL (3.8-10.6); WBC (Perox) 10.59
[2017-02-16 04:54] LABS: Anion Gap 13 mmol/L; Blood Urea Nitrogen 19 mg/dL (9-20); Calcium 9.8 mg/dL (8.4-10.2); Carbon Dioxide 19 mmol/L (22-30); Chloride 110 mmol/L (98-107); Glucose 79 mg/dL (74-99); Magnesium 1.8 mg/dL (1.6-2.3); Non-African American GFR(MDRD) >60 (>60 ml/min/1.73 sqM); Phosphorous 2.2 mg/dL (2.5-4.5); Potassium 3.5 mmol/L (3.5-5.1); Sodium 142 mmol/L (137-145)
[2017-02-16 05:00] LABS: Glucose,Whole Blood 71 mg/dL (75-99)
[2017-02-16 05:23] LABS: Glucose,Whole Blood 75 mg/dL (75-99)
[2017-02-16] MEDS ORDERED: POTASSIUM CHLORIDE IV SCH ×2 (05:42)
[2017-02-16] MEDS ORDERED: DEXTROSE IV SCH ×2 (05:42)
[2017-02-16] MEDS ORDERED: SODIUM CHLORIDE IV SCH ×2 (05:42)
[2017-02-16] MEDS ORDERED: Potassium Replacement Protocol 1 EACH MISC MISCELLANE PRN (05:44)
[2017-02-16] MEDS ORDERED: D5-0.45% NACL WITH KCL 20MEQ/L 1,000 ML IV SCH (06:00)
[2017-02-16 06:11] LABS: Glucose,Whole Blood 67 mg/dL (75-99)
[2017-02-16] MEDS: MAGNESIUM SULFATE-D5W PMX 1 GM in DEXTROSE/WATER 1 100ML.BAG IVPB SCH ×2 (06:15→08:02)
[2017-02-16] MEDS: D5-0.45% NACL WITH KCL 20MEQ/L 1,000 ML IV SCH ×2 (06:17→13:40)
[2017-02-16] MEDS: POTASSIUM CHLORIDE ER 20 MEQ TAB.ER PO SCH ×2 (06:17→08:02)
[2017-02-16 06:33] LABS: Glucose,Whole Blood 59 mg/dL (75-99)
--- NOTE | 2017-02-16 06:50 | XR ---
EXAMINATION TYPE: XR chest 1V DATE OF EXAM: 02/16/2017 HISTORY: baseline. REFERENCE: Previous study dated 12/06/2016. FINDINGS: The heart is mildly enlarged. The lungs are clear. Pleural spaces are clear. IMPRESSION: MILD CARDIOMEGALY.
[2017-02-16 06:59] LABS: Glucose,Whole Blood 63 mg/dL (75-99)
[2017-02-16 07:27] LABS: Glucose,Whole Blood 121 mg/dL (75-99)
[2017-02-16 07:28] LABS: Appearance,Urine Clear (Clear); Bilirubin,Urine Negative (Negative); Glucose,Urine (UA) Negative (Negative); Ketones,Urine Trace (Negative); Leukocyte Esterase,Urine Negative (Negative); Mucus,Urine Rare /hpf; Nitrite,Urine Negative (Negative); Particle Count 797; Protein,Urine Negative (Negative); RBC,Urine <1 /hpf (0-5); Specific Gravity,Urine 1.006 (1.001-1.035); UA Billing (MACRO vs. MICRO) MICRO; Urobilinogen,Urine <2.0 mg/dL (<2.0)
[2017-02-16] MEDS ORDERED: NON-FORMULARY DRUG (Omeprazole 20 MG) PO SCH (07:30)
[2017-02-16 08:01] LABS: Glucose,Whole Blood 108 mg/dL (75-99)
[2017-02-16] MEDS: SUCRALFATE 1 GM TAB PO SCH ×3 (08:06→21:12)
[2017-02-16] MEDS: LISINOPRIL 10 MG TAB PO SCH (08:06)
[2017-02-16] MEDS: PANTOPRAZOLE 40 MG/10 ML VIAL IV SCH (08:06)
[2017-02-16] MEDS: GABAPENTIN 100 MG CAP PO SCH ×3 (08:06→21:12)
[2017-02-16] MEDS: amLODIPine 5 MG TAB PO SCH (08:06)
[2017-02-16] MEDS: ONDANSETRON 4 MG/2 ML VIAL IVP PRN (08:24)
[2017-02-16 08:43] LABS: Anion Gap 12 mmol/L; Calcium 9.4 mg/dL (8.4-10.2); Carbon Dioxide 18 mmol/L (22-30); Chloride 111 mmol/L (98-107); Glucose 116 mg/dL (74-99); Non-African American GFR(MDRD) >60 (>60 ml/min/1.73 sqM); Sodium 141 mmol/L (137-145)
[2017-02-16 08:46] LABS: Blood Urea Nitrogen 18 mg/dL (9-20); Potassium 4.2 mmol/L (3.5-5.1)
[2017-02-16 09:12] LABS: Glucose,Whole Blood 153 mg/dL (75-99)
[2017-02-16] MEDS: METOPROLOL TARTRATE 25 MG TAB PO SCH ×2 (09:19→21:11)
[2017-02-16 09:59] LABS: Glucose,Whole Blood 143 mg/dL (75-99)
--- NOTE | 2017-02-16 10:32 | P.NPCON ---
History of Present Illness - Reason for Consult Consult date: 02/16/17 acute renal failure, hyperkalemia - Chief Complaint Hyperkalemia and acute kidney injury and hypernatremia - History of Present Illness This is a 57-year-old male seen in consultation because of hyperkalemia, hypernatremia acute kidney injury and gap acidosis He is known with diabetes since age 17, 40 years ago approximately. He has diabetic retinopathy with severe impairment in his vision, peripheral vascular disease with loss of the left great toe and the tip of this second left toe. He came in because of nausea vomiting diarrhea for the last 5 days. He denies any GI bleed. This was not associated with any fever chills. No cough shortness of breath dizziness chest pain. His blood sugars have been running high and about the limit of his glucometer. His past history significant for hypertension and rheumatoid arthritis gastroparesis, history of substance abuse including cocaine and alcohol. He is also on chronic nonsteroidal use for his arthritis. His had left great toe amputation and left second toe Amputation in the past. multiple admissions. He was recently admitted here 01/13/2017 with abdominal pain nausea vomiting. Past Medical History Past Medical History: Heart Failure, Diabetes Mellitus, Hypertension, Pneumonia , Renal Disease, Rheumatoid Arthritis (RA), Skin Disorder Additional Past Medical History / Comment(s): 10/20/16 thought sepsis 2ndary to R middle lobe pne, multiple admissions for dka Other hx: IDDM poorly controlled , diabetic gastroparesis, bilateral feet/hands peripheral neuropathy, blood behind both eyes, peptic ulcer disease/duodenal ulcer/gastritis with erosions, previous hospitalization for pulmonary edema and bilateral pleural effusion and subsequent evaluation showed a preserved LV function with an ejection fraction of around 50%, CKD stage III, normocytic chronic anemia, rheumatoid arthritis, DJD, chronic back pain, osteoarthritis-generalized, eczema, psoriasis, ear infections, hx of narcotic abuse, cocaine abuse and alcohol abuse. History of Any Multi-Drug Resistant Organisms: MRSA Date of last positivie culture/infection: 02/25/08 MDRO Source:: Neck Past Surgical History: Adenoidectomy, Tonsillectomy Additional Past Surgical History / Comment(s): colonoscopy 2008, EGD, lt great toe amp, and part of 2nd toe. Past Anesthesia/Blood Transfusion Reactions: No Reported Reaction Past Psychological History: No Psychological Hx Reported Additional Psychological History / Comment(s): patient stated he lived with [facility] but is reluctant to answer any questions Smoking Status: Never smoker Past Alcohol Use History: Unable to Obtain Additional Past Alcohol Use History / Comment(s): pt reluctant to answer question Past Drug Use History: Cocaine, Marijuana, Opiates, Prescription Drug Abuse Additional Drug Use History / Comment(s): pt reluctant to answer any questions of drug use , amount or when last used. it was previously charted past use of cocaine,opiates, marijuana. - Past Family History Father Family Medical History: Diabetes Mellitus, Hypertension Additional Family Medical History / Comment(s): father at the age of 82 yrs from diabetic complications. Mother Additional Family Medical History / Comment(s): pyschiatric issues. Mother is 78yrs old. Medications and Allergies Home Medications Medication Instructions Recorded Confirmed Type Insulin Aspart [NovoLOG] See Protocol SQ ACHS 01/04/17 02/15/17 History Insulin Glargine [Lantus] 20 unit SQ QAM 01/04/17 02/15/17 History Multivitamins, Thera [Multivitamin 1 tab PO DAILY 01/04/17 02/15/17 History (formulary)] Omeprazole [PriLOSEC] 20 mg PO AC-BRKFST #30 cap 01/07/17 02/15/17 Rx traMADol HCl [Ultram] 50 mg PO Q6H PRN #60 tab 01/07/17 02/15/17 Rx Folic Acid 1 mg PO DAILY 01/13/17 02/15/17 History Gabapentin [Neurontin] 100 mg PO TID 01/13/17 02/15/17 History Ibuprofen [Motrin] 800 mg PO TID PRN 01/13/17 02/15/17 History Lisinopril [Zestril] 10 mg PO DAILY 01/13/17 02/15/17 History Metoprolol Tartrate [Lopressor] 25 mg PO BID 01/13/17 02/15/17 History Sucralfate [Carafate] 1 gm PO TID 01/13/17 02/15/17 History amLODIPine [Norvasc] 5 mg PO DAILY 01/13/17 02/15/17 History traZODone HCL [Desyrel] 100 mg PO HS 01/13/17 02/15/17 History Allergies Allergy/AdvReac Type Severity Reaction Status Date / Time No Known Allergies Allergy Verified 02/15/17 12:05 Physical Exam Vitals: Vital Signs Temp Pulse Pulse Resp BP BP Pulse Ox 02/16/17 09:00 66 13 161/66 100 02/16/17 08:00 98.5 F 62 17 161/66 100 02/16/17 07:00 59 L 17 155/66 100 02/16/17 06:00 62 14 100 02/16/17 05:00 64 14 115/65 100 02/16/17 04:00 97.8 F 62 46 H 122/66 100 02/16/17 03:00 68 14 122/66 100 02/16/17 02:00 68 14 158/75 100 02/16/17 01:00 62 14 161/63 100 02/16/17 00:30 76 16 164/68 97 02/16/17 00:00 98.3 F 71 18 181/71 100 02/15/17 23:30 68 12 100 02/15/17 23:22 70 11 L 172/74 100 02/15/17 23:00 69 17 172/74 100 02/15/17 22:30 69 16 173/77 100 02/15/17 22:00 71 16 169/107 100 02/15/17 21:30 68 18 169/107 100 02/15/17 21:00 74 22 202/105 100 02/15/17 20:49 98.1 F 73 19 184/98 100 02/15/17 16:00 103 H 17 196/102 97 02/15/17 12:42 96.9 F L 98 20 169/82 100 02/15/17 12:40 97.4 F L 104 H 16 205/102 97 02/15/17 10:40 101 H 18 181/86 100 Intake and Output 02/15/17 02/16/17 02/16/17 22:59 06:59 14:59 Intake Total 1079.21 1867.746 564.466 Output Total 1900 1700 Balance -820.79 167.746 564.466 Intake: IV 200 1500 300 Calcium Gluconate 1,000 100 mg In Sodium Chloride 0.9 % 100 ml @ 100 mls/hr IVPB ONCE ONE Rx#: [id number] Dextrose 5%-0.45% NaCl 1, 600 300 000 ml @ 150 mls/hr IV . [id number] JURGEN Rx#:[id number] Sodium Chloride 0.45% 1, 200 800 000 ml @ 200 mls/hr IV . Q5H JURGEN Rx#:[id number] Intake, IV Titration 879.21 367.746 144.466 Amount Dextrose 10 % in Water 250 250 ml @ 999 mls/hr IV ONCE STA Rx#:[id number] Insulin Regular 100 unit 79.21 17.746 44.466 In Sodium Chloride 0.9% 100 ml @ 0.1 UNITS/KG/HR 7.78 mls/hr IV .[id number] JURGEN Rx#:[id number] Magnesium Sulfate-D5w Pmx 100 100 1 gm In Dextrose/Water 1 100ml.bag @ 100 mls/hr IVPB Q1H JURGEN Rx#: [id number] Sodium Chloride 0.9% 1, 800 000 ml @ 200 mls/hr IV . Q5H JURGEN Rx#:[id number] Oral 0 Tube Feeding 120 Output: Urine 1900 1700 Other: Voiding Method Urinal Urinal Urinal Weight 68.7 kg 68.4 kg On examination is awake alert oriented. HEENT exam no JVP neck is supple no facial asymmetry pupils are equal Lungs are clear to auscultation percussion good air entry bilaterally Heart sounds are unremarkable for any murmur rub gallop Abdomen is soft nontender no organomegaly status masses Extremity exam was no edema Absent great toe on the left and the tip of the second toe as well. Warm to touch Diminished sensation in his feet. Able to move all his extremities. His vision is poor as well Results - Lab Results Most recent lab results Calcium 9.4 mg/dL (8.4-10.2) 02/16/17 08:09 Phosphorus 2.2 mg/dL (2.5-4.5) L 02/16/17 04:18 Magnesium 1.8 mg/dL (1.6-2.3) 02/16/17 04:18 02/16/17 04:12 02/16/17 08:09 Assessment and Plan Plan: Impression. 1. Mild acute kidney injury secondary to volume depletion from osmotic diuresis. Creatinine was 1.46 on admission is currently 1.0, resolved acute kidney injury with hydration. 2. Hyperkalemia potassium of 5.5 on admission, secondary to combination of nonsteroidals, Kurtis inhibitors, high blood sugar of 607 at the time that added to the transcellular shift from the intracellular compartment to the blood compartment. This is improved with potassium being 4.2 this morning. 3. Severe gap acidosis with bicarb of 8 and anion gap of 30, lactic acid was 1.2 the cause of this is obviously diabetic ketoacidosis. This is resolved with insulin and IV fluids with bicarb now at 18 and anion gap of 12. Her and bicarb of 18 could be explained on some loss of bicarb with the urine output with transformation of gap acidosis to the non-gap acidosis. 4. Transient severe hyperkalemia secondary to combination of intracellular shift and acidosis potassium was 7.1 but this is resolved as mentioned about. 5. Hyponatremia diabetes since age 15 with retinopathy and neuropathy and peripheral vascular disease. 6. History of substance abuse. Currently no evidence of any other explanation for his severe acidosis that has resolved. Possibilities of other alcohol scalding severe acidosis such as methanol or ethylene glycol would have been considered but thought to be unlikely now Recommendation. 1. Maintain current IV fluids D5 half-normal saline. Take out the potassium and it. 2. Monitor BUN/creatinine I's, acid base. 3. Maintain blood sugar control as is being done. 4. Can reintroduce KURTIS inhibitor's but hold off on the nonsteroidals for now 5. Monitor acetones Thank you for this consultation please feel free to call us if necessary
[2017-02-16 11:10] LABS: Glucose,Whole Blood 93 mg/dL (75-99)
[2017-02-16 11:32] LABS: Glucose,Whole Blood 80 mg/dL (75-99)
[2017-02-16 12:04] LABS: Glucose,Whole Blood 81 mg/dL (75-99)
[2017-02-16 12:29] LABS: Glucose,Whole Blood 65 mg/dL (75-99)
[2017-02-16] MEDS: MULTIVITAMINS, THERA 1 EACH TAB PO SCH (12:35)
[2017-02-16] MEDS: FOLIC ACID 1 MG TAB PO SCH (12:35)
[2017-02-16 12:45] LABS: Glucose,Whole Blood 74 mg/dL (75-99)
[2017-02-16 13:03] LABS: Anion Gap 12 mmol/L; Blood Urea Nitrogen 17 mg/dL (9-20); Calcium 9.6 mg/dL (8.4-10.2); Carbon Dioxide 18 mmol/L (22-30); Chloride 111 mmol/L (98-107); Glucose 68 mg/dL (74-99); Non-African American GFR(MDRD) >60 (>60 ml/min/1.73 sqM); Phosphorous 2.2 mg/dL (2.5-4.5); Potassium 5.2 mmol/L (3.5-5.1); Sodium 141 mmol/L (137-145)
[2017-02-16 13:05] LABS: Glucose,Whole Blood 91 mg/dL (75-99)
[2017-02-16 13:36] LABS: Glucose,Whole Blood 124 mg/dL (75-99)
[2017-02-16 14:01] LABS: Glucose,Whole Blood 143 mg/dL (75-99)
[2017-02-16 15:11] LABS: Glucose,Whole Blood 224 mg/dL (75-99)
[2017-02-16 16:05] LABS: Glucose,Whole Blood 192 mg/dL (75-99)
[2017-02-16 16:47] LABS: Anion Gap 10 mmol/L; Blood Urea Nitrogen 16 mg/dL (9-20); Calcium 9.1 mg/dL (8.4-10.2); Carbon Dioxide 18 mmol/L (22-30); Chloride 109 mmol/L (98-107); Glucose 227 mg/dL (74-99); Non-African American GFR(MDRD) >60 (>60 ml/min/1.73 sqM); Phosphorous 2.1 mg/dL (2.5-4.5); Sodium 137 mmol/L (137-145)
--- NOTE | 2017-02-16 16:52 | CONS ---
CONSULTATION Rigo Krueger is a 57-year-old male with a history of type 1 diabetes since his teenage years who comes into the ED with increasing nausea, vomiting and abdominal pain. He was noted to have a gastroccult positive. He continued himself on his same previous dose of insulin. No clear fever or chills. He was subsequently admitted to the hospital for further evaluation. PAST MEDICAL HISTORY: Is positive for congestive heart failure, diabetes mellitus, rheumatoid arthritis, skin disorder, pneumonia, renal disease and CKD stage 3. Cocaine and narcotic abuse. Eczema, osteoarthritis, psoriasis, adenoidectomy, tonsillectomy, colonoscopy, EGD, amputation of the second toe. Previous history of MRSA being positive. MEDICATIONS: Home medications prior to admission were: 1. Desyrel. 2. Ultram. 3. Norvasc. 4. Carafate. 5. Prilosec. 6. Multivitamin. 7. Lopressor. 8. Zestril. 9. Lantus. 10.NovoLog. 11.Motrin. 12.Neurontin. 13.Folic acid. FAMILY HISTORY: Positive for diabetes mellitus, hypertension, and his father at age 82 from diabetic complications. Mother has a history of psychiatry issues. SOCIAL HISTORY: The patient does not smoke cigarettes. Used to drink alcohol in the past. Used to use cocaine in his 20s. REVIEW OF SYSTEMS: Is noncontributory other that what is described in the history of present illness and past medical history. PHYSICAL EXAMINATION: His blood pressure is 102/55, respiratory rate of 19, pulse rate of 61, temperature 98.4, O2 saturation on room air is 100%. HEENT reveals pupils that are equal. No jugular venous distention. CHEST: Clear. Cardiovascular system revealed an S1, S2. Abdomen is mild tenderness in the left lower quadrant. Bowel sounds were heard. There is no edema. LABORATORY DATA: Sodium is 141, potassium 5.2, chloride 111, bicarb 18, BUN 17, creatinine of 1.05. On admission, his white count is 14.3, hemoglobin of 13, venous blood gas showed pH is 7.13, pCO2 of 36. BUN 20, creatinine 1.1. Lactic acid is 1.2. Alkaline phosphatase 145, creatinine 323, glucose was 607, initial bicarb on electrolytes was only 8. IMPRESSION: At this time: 1. Diabetic ketoacidosis. 2. Possible gastrointestinal bleed. 3. Possible diverticulosis or diverticulitis. 4. Acute on chronic renal failure. 5. Hyperkalemia. 6. Severe metabolic acidosis due to diabetic ketoacidosis is likely. At this point in time from a pulmonary standpoint, would keep the patient in the ICU. Would aggressively hydrate the patient. Keep the patient on insulin drip and subsequently switch him to scheduled insulin once his anion gap is corrected. Keep him on GI prophylaxis. Hold off on subcu heparin given that his gastroccult blood is positive. His prognosis at this time is guarded. If he is otherwise stable later in the day he may be transferred out of the intensive care unit. MMJACKYL / IJN: [id number] /
[2017-02-16 16:53] LABS: Potassium 5.3 mmol/L (3.5-5.1)
[2017-02-16] MEDS ORDERED: Phosphorus Replacement Protoco 1 EACH MISC MISCELLANE PRN (17:02)
[2017-02-16 17:06] LABS: Glucose,Whole Blood 186 mg/dL (75-99)
[2017-02-16] MEDS ORDERED: INSULIN GLARGINE 100 UNIT/ML 10 ML VIAL SQ SCH (17:15)
[2017-02-16] MEDS: INSULIN REGULAR 100 UNIT in SODIUM CHLORIDE 0.9% 100 ML IV SCH (17:21)
[2017-02-16] MEDS ORDERED: INSULIN NPH 300 UNIT/3 ML VIAL SQ ONE (17:30)
[2017-02-16] MEDS: INSULIN LISPRO (humaLOG) 300 UNIT/3 ML VIAL SQ SCH ×3 (17:52→21:12)
[2017-02-16 17:58] LABS: Glucose,Whole Blood 249 mg/dL (75-99)
[2017-02-16] MEDS ORDERED: SODIUM PHOSPHATE 10 MMOL in SODIUM CHLORIDE 0.9% 250 ML IVPB ONE (18:00)
[2017-02-16] MEDS: CALCIUM CARBONATE 500 MG CHEWABLE PO PRN (18:04)
[2017-02-16] MEDS: AMPICILLIN-SULBACTAM 1.5 GM in SODIUM CHLORIDE 0.9% 50 ML IVPB SCH (18:51)
[2017-02-16 18:56] LABS: Glucose,Whole Blood 187 mg/dL (75-99)
[2017-02-16 20:51] LABS: Glucose,Whole Blood 108 mg/dL (75-99)
[2017-02-16] MEDS: traZODone HCL 100 MG TAB PO SCH (21:11)
[2017-02-17 00:34] LABS: Anion Gap 8 mmol/L; Carbon Dioxide 17 mmol/L (22-30); Chloride 112 mmol/L (98-107); Glucose 96 mg/dL (74-99); Non-African American GFR(MDRD) >60 (>60 ml/min/1.73 sqM); Sodium 137 mmol/L (137-145)
[2017-02-17 00:57] LABS: Potassium 5.3 mmol/L (3.5-5.1)
[2017-02-17 00:58] LABS: Blood Urea Nitrogen 13 mg/dL (9-20); Phosphorous 2.3 mg/dL (2.5-4.5)
[2017-02-17] MEDS: AMPICILLIN-SULBACTAM 1.5 GM in SODIUM CHLORIDE 0.9% 50 ML IVPB SCH ×5 (00:59→22:59)
[2017-02-17 02:06] LABS: Glucose,Whole Blood 70 mg/dL (75-99)
[2017-02-17 02:31] LABS: Glucose,Whole Blood 81 mg/dL (75-99)
[2017-02-17] MEDS: INSULIN LISPRO (humaLOG) 300 UNIT/3 ML VIAL SQ SCH ×8 (03:04→21:20)
[2017-02-17 03:37] LABS: Glucose,Whole Blood 100 mg/dL (75-99)
[2017-02-17 05:02] LABS: Anion Gap 8 mmol/L; Blood Urea Nitrogen 13 mg/dL (9-20); Carbon Dioxide 19 mmol/L (22-30); Chloride 111 mmol/L (98-107); Glucose 145 mg/dL (74-99); Magnesium 1.9 mg/dL (1.6-2.3); Non-African American GFR(MDRD) >60 (>60 ml/min/1.73 sqM); Phosphorous 2.5 mg/dL (2.5-4.5); Potassium 5.5 mmol/L (3.5-5.1); Sodium 138 mmol/L (137-145)
[2017-02-17 06:45] LABS: Basophils % (A) 0 %; CH 30.9; CHCM 31.4; Eosinophils # (A) 0.1 k/uL (0-0.7); Eosinophils % (A) 1 %; HCT 40.6 % (39.0-53.0); HDW 2.69; HGB 12.8 gm/dL (13.0-17.5); Hypochromasia Slight; Luc # (Auto) 0.09; Luc % (Auto) 2; Lymphocytes # (A) 1.8 k/uL (1.0-4.8); Lymphocytes % (A) 34 %; MCH 31.1 pg (25.0-35.0); MCHC 31.4 g/dL (31.0-37.0); MCV 98.9 fL (80.0-100.0); Mean Platelet Volume 7.2; Monocytes # (A) 0.3 k/uL (0-1.0); Monocytes % (A) 5 %; Neutrophils % (A) 58 %; RBC 4.11 m/uL (4.30-5.90); RDW 14.1 % (11.5-15.5); WBC 5.2 k/uL (3.8-10.6); WBC (Perox) 5.67
[2017-02-17 07:31] LABS: Glucose,Whole Blood 99 mg/dL (75-99)
[2017-02-17] MEDS: amLODIPine 5 MG TAB PO SCH (08:12)
[2017-02-17] MEDS: METOPROLOL TARTRATE 25 MG TAB PO SCH ×2 (08:12→21:20)
[2017-02-17] MEDS: GABAPENTIN 100 MG CAP PO SCH ×3 (08:12→21:38)
[2017-02-17] MEDS: LISINOPRIL 10 MG TAB PO SCH (08:12)
[2017-02-17] MEDS: SUCRALFATE 1 GM TAB PO SCH ×3 (08:13→21:39)
[2017-02-17] MEDS: PANTOPRAZOLE 40 MG/10 ML VIAL IV SCH (08:13)
--- NOTE | 2017-02-17 08:29 | HP ---
HISTORY AND PHYSICAL DATE OF SERVICE: 02/16/2017 ICU time is minutes. HISTORY OF PRESENT ILLNESS: This 57-year-old male with progressive nausea, vomiting and gastroparesis and diabetic ketoacidosis, has a history of hyperglycemia, has severe nausea and vomiting from gastroparesis. He has been admitted for DKA. He is noncompliant with his insulin and his diet at home when he has nausea and vomiting. MEDICATIONS: Home medication include: 1. NovoLog. 2. Lantus. 3. Folic acid. 4. Neurontin. 5. Motrin. 6. Zestril. 7. Lopressor. 8. Carafate. 9. Norvasc. 10.Desyrel. 11.Prilosec. 12.Tramadol. ALLERGIES: Negative. PAST MEDICAL HISTORY: Heart failure, diabetes mellitus, hypertension, pneumonia, renal disease, rheumatoid arthritis, skin disorder, sepsis due to multiple toe injuries, diabetic ketoacidosis, pulmonary edema, bilateral pleural effusions, chronic back pain, degenerative disc disease, chronic anemia normocytic, chronic kidney disease stage 3, cocaine abuse, alcohol abuse. SURGERIES: Adenoidectomy and tonsillectomy. PHYSICAL EXAMINATION: Temp 96.8, pulse is 93 to 104, respiratory rate 16 to 18, blood pressure 181 to 203 over 86 to 95, O2 of 94% to100%. HEAD: Normocephalic, atraumatic. NECK: Supple. CARDIOVASCULAR: S1, S2. LUNGS: Transmitted upper airway sounds. Scattered wheeze. GI: Soft, nontender. HEMATOLOGIC: Negative Homans. NEUROLOGIC: Alert, oriented x3. VASCULAR: Normal dorsalis pedis, posterior tibial and radial pulses. ASSESSMENT: 1. Acute diabetic ketoacidosis. 2. Gastroparesis. 3. Dehydration. 4. Leukocytosis. 5. Hyperkalemia. 6. Acute on chronic renal insufficiency. PLAN: Admit this patient to inpatient, continue with diabetes DKA protocol, hypertension will be controlled, blood pressure will be controlled. Please see further orders. ICU time minutes as mentioned above. MMODL / IJN: [id number] /
--- NOTE | 2017-02-17 08:32 | P.GSCN ---
History of Present Illness Consult date: 02/17/17 Reason for Consult: Occult positive gastric content History of present illness: 57-year-old male that is admitted to the ICU secondary to diabetic ketoacidosis. He had episodes of nausea and emesis and his gastric content was sent for occult studies. The occult studies came back positive. At this time the patient is resting comfortably. He states he is currently not nauseous and denies any further episodes of emesis. He states that he has not had a history of any gastric ulcers. He states he has had upper endoscopy in the past but does not remember for what reason. He denies any changes in bowel function. He currently denies any abdominal pain. He denies any fevers, chills, chest pain or shortness of breath. He has no additional complaints at this time. Review of Systems All systems: negative Past Medical History Past Medical History: Heart Failure, Diabetes Mellitus, Hypertension, Pneumonia , Renal Disease, Rheumatoid Arthritis (RA), Skin Disorder Additional Past Medical History / Comment(s): 10/20/16 thought sepsis 2ndary to R middle lobe pne, multiple admissions for dka Other hx: IDDM poorly controlled , diabetic gastroparesis, bilateral feet/hands peripheral neuropathy, blood behind both eyes, peptic ulcer disease/duodenal ulcer/gastritis with erosions, previous hospitalization for pulmonary edema and bilateral pleural effusion and subsequent evaluation showed a preserved LV function with an ejection fraction of around 50%, CKD stage III, normocytic chronic anemia, rheumatoid arthritis, DJD, chronic back pain, osteoarthritis-generalized, eczema, psoriasis, ear infections, hx of narcotic abuse, cocaine abuse and alcohol abuse. History of Any Multi-Drug Resistant Organisms: MRSA Year Discovered:: 02/25/08 MDRO Source:: Neck Past Surgical History: Adenoidectomy, Tonsillectomy Additional Past Surgical History / Comment(s): colonoscopy 2009, EGD, lt great toe amp, and part of 2nd toe. Past Anesthesia/Blood Transfusion Reactions: No Reported Reaction Past Psychological History: No Psychological Hx Reported Additional Psychological History / Comment(s): patient stated he lived with roomates but is reluctant to answer any questions Smoking Status: Never smoker Past Alcohol Use History: Unable to Obtain Additional Past Alcohol Use History / Comment(s): pt reluctant to answer question Past Drug Use History: Cocaine, Marijuana, Opiates, Prescription Drug Abuse Additional Drug Use History / Comment(s): pt reluctant to answer any questions of drug use , amount or when last used. it was previously charted past use of cocaine,opiates, marijuana. - Past Family History Father Family Medical History: Diabetes Mellitus, Hypertension Additional Family Medical History / Comment(s): father at the age of 82 yrs from diabetic complications. Mother Additional Family Medical History / Comment(s): pyschiatric issues. Mother is 78yrs old. Medications and Allergies Home Medications Medication Instructions Recorded Confirmed Type Insulin Aspart [NovoLOG] See Protocol SQ ACHS 01/04/17 02/15/17 History Insulin Glargine [Lantus] 25 unit SQ QAM 01/04/17 02/16/17 History Multivitamins, Thera [Multivitamin 1 tab PO DAILY 01/04/17 02/15/17 History (formulary)] Omeprazole [PriLOSEC] 20 mg PO AC-BRKFST #30 cap 01/07/17 02/15/17 Rx traMADol HCl [Ultram] 50 mg PO Q6H PRN #60 tab 01/07/17 02/15/17 Rx Folic Acid 1 mg PO DAILY 01/13/17 02/15/17 History Gabapentin [Neurontin] 100 mg PO TID 01/13/17 02/15/17 History Ibuprofen [Motrin] 800 mg PO TID PRN 01/13/17 02/15/17 History Lisinopril [Zestril] 10 mg PO DAILY 01/13/17 02/15/17 History Metoprolol Tartrate [Lopressor] 25 mg PO BID 01/13/17 02/15/17 History Sucralfate [Carafate] 1 gm PO TID 01/13/17 02/15/17 History amLODIPine [Norvasc] 5 mg PO DAILY 01/13/17 02/15/17 History traZODone HCL [Desyrel] 100 mg PO HS 01/13/17 02/15/17 History INSULIN LISPRO (humaLOG) [humaLOG 5 units SQ AC-TID 02/16/17 02/16/17 History (formulary)] Allergies Allergy/AdvReac Type Severity Reaction Status Date / Time No Known Allergies Allergy Verified 02/15/17 12:05 Surgical - Exam Osteopathic Statement: *. No significant issues noted on an osteopathic structural exam other than those noted in the History and Physical/Consult. Vital Signs Temp Pulse Resp BP Pulse Ox 96.8 F L 104 H 16 203/95 94 L 02/15/17 08:47 02/15/17 08:47 02/15/17 08:47 02/15/17 08:47 02/15/17 08:47 - General well nourished, no distress - Eyes PERRL, normal ocular movement - ENT normal mucosa - Neck no masses, no bruits, trachea midline, no lymphadectomy - Respiratory normal expansion, normal respiratory effort - Cardiovascular Rhythm: regular Heart Sounds: normal: S1, S2 - Abdomen Abdomen: soft, non tender, no masses, no guarding, no rebound, no distended - Integumentary no rash, no growths - Psychiatric oriented to time, oriented to person, oriented to place, speech is normal Results - Labs 02/17/17 06:20 02/17/17 04:08 Abnormal Lab Results - Last 24 Hours (Table) 02/16/17 02/16/17 02/16/17 Range/Units 08:09 09:10 09:57 RBC (4.30-5.90) m/uL Hgb (13.0-17.5) gm/dL Potassium (3.5-5.1) mmol/L Chloride 111 H (98-107) mmol/L Carbon Dioxide 18 L (22-30) mmol/L Glucose 116 H (74-99) mg/dL POC Glucose (mg/dL) 153 H 143 H (75-99) mg/dL Phosphorus (2.5-4.5) mg/dL 02/16/17 02/16/17 02/16/17 Range/Units 12:27 12:30 12:43 RBC (4.30-5.90) m/uL Hgb (13.0-17.5) gm/dL Potassium 5.2 H (3.5-5.1) mmol/L Chloride 111 H (98-107) mmol/L Carbon Dioxide 18 L (22-30) mmol/L Glucose 68 L (74-99) mg/dL POC Glucose (mg/dL) 65 L 74 L (75-99) mg/dL Phosphorus 2.2 L (2.5-4.5) mg/dL 02/16/17 02/16/1702/16/17 Range/Units 13:34 13:59 15:08 RBC (4.30-5.90) m/uL Hgb (13.0-17.5) gm/dL Potassium (3.5-5.1) mmol/L Chloride (98-107) mmol/L Carbon Dioxide (22-30) mmol/L Glucose (74-99) mg/dL POC Glucose (mg/dL) 124 H 143 H 224 H (75-99) mg/dL Phosphorus (2.5-4.5) mg/dL 02/16/17 02/16/17 02/16/17 Range/Units 16:00 16:02 17:05 RBC (4.30-5.90) m/uL Hgb (13.0-17.5) gm/dL Potassium 5.3 H (3.5-5.1) mmol/L Chloride 109 H (98-107) mmol/L Carbon Dioxide 18 L (22-30) mmol/L Glucose 227 H (74-99) mg/dL POC Glucose (mg/dL) 192 H 186 H (75-99) mg/dL Phosphorus 2.1 L (2.5-4.5) mg/dL 02/16/17 02/16/17 02/16/17 Range/Units 17:56 18:54 20:49 RBC (4.30-5.90) m/uL Hgb (13.0-17.5) gm/dL Potassium (3.5-5.1) mmol/L Chloride (98-107) mmol/L Carbon Dioxide (22-30) mmol/L Glucose (74-99) mg/dL POC Glucose (mg/dL) 249 H 187 H 108 H (75-99) mg/dL Phosphorus (2.5-4.5) mg/dL 02/16/17 02/17/17 02/17/17 Range/Units 23:58 02:03 03:35 RBC (4.30-5.90) m/uL Hgb (13.0-17.5) gm/dL Potassium 5.3 H (3.5-5.1) mmol/L Chloride 112 H (98-107) mmol/L Carbon Dioxide 17 L (22-30) mmol/L Glucose (74-99) mg/dL POC Glucose (mg/dL) 70 L 100 H (75-99) mg/dL Phosphorus 2.3 L (2.5-4.5) mg/dL 02/17/17 02/17/17 Range/Units 04:08 06:20 RBC 4.11 L (4.30-5.90) m/uL Hgb 12.8 L (13.0-17.5) gm/dL Potassium 5.5 H (3.5-5.1) mmol/L Chloride 111 H (98-107) mmol/L Carbon Dioxide 19 L (22-30) mmol/L Glucose 145 H (74-99) mg/dL POC Glucose (mg/dL) (75-99) mg/dL Phosphorus (2.5-4.5) mg/dL Diabetes panel 02/16/17 02/16/17 02/16/17 Range/Units 08:09 12:30 16:00 Sodium 141 141 137 (137-145) mmol/L Potassium 4.2 5.2 H 5.3 H (3.5-5.1) mmol/L Chloride 111 H 111 H 109 H (98-107) mmol/L Carbon Dioxide 18 L 18 L 18 L (22-30) mmol/L BUN 18 17 16 (9-20) mg/dL Creatinine 1.02 1.05 1.00 (0.66-1.25) mg/dL Glucose 116 H 68 L 227 H (74-99) mg/dL Calcium 9.4 9.6 9.1 (8.4-10.2) mg/dL 02/16/17 02/17/17 Range/Units 23:58 04:08 Sodium 137 138 (137-145) mmol/L Potassium 5.3 H 5.5 H (3.5-5.1) mmol/L Chloride 112 H 111 H (98-107) mmol/L Carbon Dioxide 17 L 19 L (22-30) mmol/L BUN 13 13 (9-20) mg/dL Creatinine 0.90 0.96 (0.66-1.25) mg/dL Glucose 96 145 H (74-99) mg/dL Calcium 9.0 9.0 (8.4-10.2) mg/dL Calcium panel 02/16/17 02/16/17 02/16/17 Range/Units 08:09 12:30 16:00 Calcium 9.4 9.6 9.1 (8.4-10.2) mg/dL Phosphorus 2.2 L 2.1 L (2.5-4.5) mg/dL 02/16/17 02/17/17 Range/Units 23:58 04:08 Calcium 9.0 9.0 (8.4-10.2) mg/dL Phosphorus 2.3 L 2.5 (2.5-4.5) mg/dL Pituitary panel 02/16/17 02/16/17 02/16/17 Range/Units 08:09 12:30 16:00 Sodium 141 141 137 (137-145) mmol/L Potassium 4.2 5.2 H 5.3 H (3.5-5.1) mmol/L Chloride 111 H 111 H 109 H (98-107) mmol/L Carbon Dioxide 18 L 18 L 18 L (22-30) mmol/L BUN 18 17 16 (9-20) mg/dL Creatinine 1.02 1.05 1.00 (0.66-1.25) mg/dL Glucose 116 H 68 L 227 H (74-99) mg/dL Calcium 9.4 9.6 9.1 (8.4-10.2) mg/dL 02/16/17 02/17/17 Range/Units 23:58 04:08 Sodium 137 138 (137-145) mmol/L Potassium 5.3 H 5.5 H (3.5-5.1) mmol/L Chloride 112 H 111 H (98-107) mmol/L Carbon Dioxide 17 L 19 L (22-30) mmol/L BUN 13 13 (9-20) mg/dL Creatinine 0.90 0.96 (0.66-1.25) mg/dL Glucose 96 145 H (74-99) mg/dL Calcium 9.0 9.0 (8.4-10.2) mg/dL Adrenal panel 02/16/17 02/16/17 02/16/17 Range/Units 08:09 12:30 16:00 Sodium 141 141 137 (137-145) mmol/L Potassium 4.2 5.2 H 5.3 H (3.5-5.1) mmol/L Chloride 111 H 111 H 109 H (98-107) mmol/L Carbon Dioxide 18 L 18 L 18 L (22-30) mmol/L BUN 18 17 16 (9-20) mg/dL Creatinine 1.02 1.05 1.00 (0.66-1.25) mg/dL Glucose 116 H 68 L 227 H (74-99) mg/dL Calcium 9.4 9.6 9.1 (8.4-10.2) mg/dL 02/16/17 02/17/17 Range/Units 23:58 04:08 Sodium 137 138 (137-145) mmol/L Potassium 5.3 H 5.5 H (3.5-5.1) mmol/L Chloride 112 H 111 H (98-107) mmol/L Carbon Dioxide 17 L 19 L (22-30) mmol/L BUN 13 13 (9-20) mg/dL Creatinine 0.90 0.96 (0.66-1.25) mg/dL Glucose 96 145 H (74-99) mg/dL Calcium 9.0 9.0 (8.4-10.2) mg/dL Assessment and Plan (1) Abdominal pain Status: Acute Plan: 57-year-old male with gastric occult positive content He currently does not have any nausea or emesis with gross GI bleed. Hemoglobin has been stable No plan for acute surgical intervention The patient can follow up outpatient for upper endoscopy I appreciate the consult and look forward in providing in the patient's care. Please call with any changes. Will follow as necessary.
--- NOTE | 2017-02-17 08:37 | XR ---
EXAMINATION TYPE: XR chest 1V portable DATE OF EXAM: 02/17/2017 HISTORY: Shortness of breath. COMPARISON: 02/16/17 TECHNIQUE: Single view of the chest is submitted. FINDINGS: Demonstrated are scattered senescent parenchymal change. There is no evidence for focal infiltrate. The heart is stable. Hilar and mediastinal structures are within normal limits. Degenerative changes are seen of the dorsal spine. IMPRESSION: 1. Chronic changes without evidence for acute pulmonary disease.
[2017-02-17 09:37] LABS: Hemoglobin A1C 11.2 % (4.2-6.1)
--- NOTE | 2017-02-17 09:44 | PN ---
PROGRESS NOTE DATE OF SERVICE: 02/17/2017 ICU time of 30 minutes. CHIEF COMPLAINT: This is a 57-year-old male with diabetic ketoacidosis. He had severe hyperkalemia on admission. He was given calcium gluconate, insulin, normal saline and bicarb to lower his potassium. His white count was 5.2. His hemoglobin was 12.8. Potassium is down to 5.5, sodium 138. His glucose 100. CARDIOVASCULAR: S1, S2. LUNGS: Transmitted upper airway sounds. GI: Soft. HEMATOLOGY: Negative Homans. ASSESSMENT: 1. Diabetic ketoacidosis. 2. Gastroparesis. 3. Nausea, vomiting and dehydration secondary gastroparesis, overall improving. Patient will possibly be discharged home in the next 24 to 48 hours as he is stabilized from medical standpoint and if he can continue to keep his food down. If not, he will have to be transferred down to [facility] where he has been twice before for gastroparesis with limited improvement down there. KASANDRA / DAYANNAN: [id number] /
[2017-02-17] MEDS: ONDANSETRON 4 MG/2 ML VIAL IVP PRN (10:35)
--- NOTE | 2017-02-17 10:39 | P.PN ---
Subjective This is a 57-year-old male patient who came into the hospital for abdominal pain nausea and vomiting. Apparently the patient had been having the nausea vomiting and diarrhea for the last 5 days. He denied any fever, chills or chest pain. The patient is known to be noncompliant with his diabetes mellitus treatment at home. Ultimately the patient was worked up in the emergency room and was admitted for DKA and gastric occult positive. The patient was seen by Dr. MOSHE Thornton for weekend coverage please refer to his notes. On examination the patient's resting up in bed on room air does complain of some mild nausea and his nurses getting his Zofran at this time. Denies any cough or congestion at this time. Patient did eat approximately 75% of his breakfast this morning. Patient does have a left external jugular peripheral IV. All labs and reports have been reviewed. No further complaints. Objective - Vital Signs Vital signs: Vital Signs Temp 97.8 F 02/17/17 08:00 Pulse 73 02/17/17 10:15 Resp 16 02/17/17 10:15 BP 164/85 02/17/17 10:15 Pulse Ox 99 02/17/17 10:15 Intake & Output 02/16/17 02/17/17 02/17/17 18:59 06:59 18:59 Intake Total 2163.254 700 Output Total 1200 550 Balance 963.254 150 Intake: IV 1500 Dextrose 5%-0.45% NaCl 1, 1500 000 ml @ 150 mls/hr IV . Q6H40M [facility] Rx#:[id number] Intake, IV Titration 183.254 350 Amount Ampicillin-Sulbactam 1.5 100 gm In Sodium Chloride 0.9 % 50 ml @ 100 mls/hr IVPB Q6HR [facility] Rx#:[id number] Insulin Regular 100 unit 83.254 In Sodium Chloride 0.9% 100 ml @ 0.1 UNITS/KG/HR 7.78 mls/hr IV .[id number] [facility] Rx#:[id number] Magnesium Sulfate-D5w Pmx 100 1 gm In Dextrose/Water 1 100ml.bag @ 100 mls/hr IVPB Q1H [facility] Rx#: [id number] Sodium Phosphate 10 mmol 250 In Sodium Chloride 0.9% 250 ml @ 125 mls/hr IVPB ONCE ONE Rx#:[id number] Oral 360 350 Tube Feeding 120 Output: Urine 1200 550 Other: Voiding Method Urinal Urinal Urinal - Exam GENERAL EXAM: Alert, active, comfortable in no apparent distress. HEAD: Normocephalic. EYES: Normal reaction of pupils, equal size. NOSE: Clear with pink turbinates. THROAT: No erythema or exudates. NECK: No masses, no JVD. External jugular IV present. CHEST: No chest wall deformity. LUNGS: Equal air entry with no crackles, wheeze, rhonchi or dullness. CVS: S1 and S2 normal with no audible mumurs, regular rhythm. ABDOMEN: No hepatosplenomegaly, normal bowel sounds, no guarding or rigidity. EXTREMITIES: No edema noted, pedal pulses palpable. SKIN: No rashes CENTRAL NERVOUS SYSTEM: No focal deficits, tone is normal in all 4 extremities. - Labs CBC & Chem 7: 02/17/17 06:20 02/17/17 04:08 Labs: Abnormal Lab Results - Last 24 Hours (Table) 02/16/17 02/16/17 02/16/17 Range/Units 04:18 12:27 12:30 RBC (4.30-5.90) m/uL Hgb (13.0-17.5) gm/dL Potassium 5.2 H (3.5-5.1) mmol/L Chloride 111 H (98-107) mmol/L Carbon Dioxide 18 L (22-30) mmol/L Glucose 68 L (74-99) mg/dL POC Glucose (mg/dL) 65 L (75-99) mg/dL Hemoglobin A1c 11.2 H (4.2-6.1) % Phosphorus 2.2 L (2.5-4.5) mg/dL TSH (0.465-4.680) mIU/L 02/16/17 02/16/17 02/16/17 Range/Units 12:43 13:34 13:59 RBC (4.30-5.90) m/uL Hgb (13.0-17.5) gm/dL Potassium (3.5-5.1) mmol/L Chloride (98-107) mmol/L Carbon Dioxide (22-30) mmol/L Glucose (74-99) mg/dL POC Glucose (mg/dL) 74 L 124 H 143 H (75-99) mg/dL Hemoglobin A1c (4.2-6.1) % Phosphorus (2.5-4.5) mg/dL TSH (0.465-4.680) mIU/L 02/16/17 02/16/17 02/16/17 Range/Units 15:08 16:00 16:02 RBC (4.30-5.90) m/uL Hgb (13.0-17.5) gm/dL Potassium 5.3 H (3.5-5.1) mmol/L Chloride 109 H (98-107) mmol/L Carbon Dioxide 18 L (22-30) mmol/L Glucose 227 H (74-99) mg/dL POC Glucose (mg/dL) 224 H 192 H (75-99) mg/dL Hemoglobin A1c (4.2-6.1) % Phosphorus 2.1 L (2.5-4.5) mg/dL TSH (0.465-4.680) mIU/L 02/16/17 02/16/17 02/16/17 Range/Units 17:05 17:56 18:54 RBC (4.30-5.90) m/uL Hgb (13.0-17.5) gm/dL Potassium (3.5-5.1) mmol/L Chloride (98-107) mmol/L Carbon Dioxide (22-30) mmol/L Glucose (74-99) mg/dL POC Glucose (mg/dL) 186 H 249 H 187 H (75-99) mg/dL Hemoglobin A1c (4.2-6.1) % Phosphorus (2.5-4.5) mg/dL TSH (0.465-4.680) mIU/L 02/16/17 02/16/17 02/17/17 Range/Units 20:49 23:58 02:03 RBC (4.30-5.90) m/uL Hgb (13.0-17.5) gm/dL Potassium 5.3 H (3.5-5.1) mmol/L Chloride 112 H (98-107) mmol/L Carbon Dioxide 17 L (22-30) mmol/L Glucose (74-99) mg/dL POC Glucose (mg/dL) 108 H 70 L (75-99) mg/dL Hemoglobin A1c (4.2-6.1) % Phosphorus 2.3 L (2.5-4.5) mg/dL TSH (0.465-4.680) mIU/L 02/17/17 02/17/17 02/17/17 Range/Units 03:35 04:08 06:20 RBC 4.11 L (4.30-5.90) m/uL Hgb 12.8 L (13.0-17.5) gm/dL Potassium 5.5 H (3.5-5.1) mmol/L Chloride 111 H (98-107) mmol/L Carbon Dioxide 19 L (22-30) mmol/L Glucose 145 H (74-99) mg/dL POC Glucose (mg/dL) 100 H (75-99) mg/dL Hemoglobin A1c (4.2-6.1) % Phosphorus (2.5-4.5) mg/dL TSH (0.465-4.680) mIU/L 02/17/17 Range/Units 06:20 RBC (4.30-5.90) m/uL Hgb (13.0-17.5) gm/dL Potassium (3.5-5.1) mmol/L Chloride (98-107) mmol/L Carbon Dioxide (22-30) mmol/L Glucose (74-99) mg/dL POC Glucose (mg/dL) (75-99) mg/dL Hemoglobin A1c (4.2-6.1) % Phosphorus (2.5-4.5) mg/dL TSH 0.372 L (0.465-4.680) mIU/L Assessment and Plan Plan: Assessment Diabetic ketoacidosis Gastric occult positive Possible diverticulosis or diverticulitis surgical on consult Acute on chronic renal failure Hyperkalemia Severe metabolic acidosis due to DKA Plan Medications have been reviewed and will be continued as ordered. Insulin is currently being adjusted by primary services. All labs and reports have been reviewed. Surgical services has evaluated the patient and is recommending outpatient scope and has no plans for surgical intervention at this time. Patient is also being followed by nephrology. Continue with pulmonary hygiene, coughing and deep breathing exercises, and supportive care. Supplemental oxygen to maintain oxygen saturations of 92% or better. Continue nebulizer treatments. GI and DVT prophylaxis. We will continue to monitor labs/results and adjust treatment as necessary. Further recommendations pending. I performed an examination of the patient and discussed their management with the nurse practitioner. I have reviewed the nurse practitioner's note and agree with the documented findings and plan of care.
[2017-02-17 12:31] LABS: Glucose,Whole Blood 183 mg/dL (75-99)
[2017-02-17] MEDS: FOLIC ACID 1 MG TAB PO SCH (12:52)
[2017-02-17] MEDS: MULTIVITAMINS, THERA 1 EACH TAB PO SCH (12:52)
[2017-02-17] MEDS ORDERED: MAG HYDROX/AL HYDROX/SIMETH 30 ML, HYOSCYAMINE ELIXIR 10 ML, CIMETIDINE HCL 300 MG PO STA ×3 (13:49)
[2017-02-17] MEDS ORDERED: SODIUM POLYSTYRENE SULFONATE 15 GM/60 ML BOTTLE PO STA (14:25)
--- NOTE | 2017-02-17 15:29 | PN ---
PROGRESS NOTE Patient is seen for followup for hyperkalemia and acute kidney injury. His renal function has improved with serum creatinine down to 0.96 from 1.46 mg/dL on admission. The patient's potassium has been staying at about 5.3 to 5.5 mEq/L. It was as high as 7.7. He has had good urine output. He is complaining of abdominal pain this morning. He states he is trying to eat. He was admitted for DKA. PHYSICAL EXAMINATION: On examination today, blood pressure is 179/95, heart rate 78 per minute. He is afebrile. Examination of the heart S1, S2. Examination lungs bilateral breath sounds are heard. ABDOMEN: Soft. There is tenderness noted in the right upper and lower quadrants. No rebound tenderness noted. No acute abdomen. Examination of the lower extremities shows no evidence of edema. LAB: Show sodium 138, potassium 5.5, chloride 111, CO2 is 19, blood sugar was 145, hemoglobin 12.8 g/dL. ASSESSMENT: 1. Acute kidney injury, prerenal, currently resolved. 2. Hyperkalemia, multifactorial associated with hyperglycemia and acidosis. Currently, the blood sugar is down to 145, potassium remains elevated. The patient is maintained on MARI inhibitors. However, his blood pressure has been running high. I will give him a dose of Kayexalate if he is able to take it. We will also maintain the patient on low-potassium diet. Currently he is not on any IV fluids. 3. Diabetic ketoacidosis. Currently improved. 4. Hypertension, uncontrolled, partly secondary to pain. PLAN: Is increase Norvasc to 10 mg. May continue with Zestril. Will give 1 dose of Kayexalate and maintain patient on low-potassium diet. Repeat labs in a.m. If his potassium remains elevated, we will have to decrease/discontinue the lisinopril. MMODL / IJN: [id number] /
[2017-02-17] MEDS ORDERED: ONDANSETRON 4 MG/2 ML VIAL IVP PRN (16:29)
[2017-02-17 17:02] LABS: Glucose,Whole Blood 287 mg/dL (75-99)
[2017-02-17 18:28] LABS: Glucose,Whole Blood 248 mg/dL (75-99)
[2017-02-17 20:55] LABS: Glucose,Whole Blood 160 mg/dL (75-99)
[2017-02-17] MEDS ORDERED: INSULIN GLARGINE 100 UNIT/ML 10 ML VIAL SQ SCH (21:00)
[2017-02-17] MEDS: traZODone HCL 100 MG TAB PO SCH (21:21)
[2017-02-17] MEDS: CALCIUM CARBONATE 500 MG CHEWABLE PO PRN (23:53)
[2017-02-18 01:57] LABS: Glucose,Whole Blood 210 mg/dL (75-99)
[2017-02-18] MEDS: INSULIN LISPRO (humaLOG) 300 UNIT/3 ML VIAL SQ SCH ×8 (02:06→21:19)
[2017-02-18] MEDS: AMPICILLIN-SULBACTAM 1.5 GM in SODIUM CHLORIDE 0.9% 50 ML IVPB SCH ×4 (05:17→23:49)
--- NOTE | 2017-02-18 06:33 | CONS ---
CONSULTATION DATE OF SERVICE: 02/17/2017 The consult was requested for possible infection. However the patient disappeared from my list at the time of my rounds this morning and just reappeared on my list this evening. Both the RN and the aboriginal community council member have no idea how it disappeared and repaired on my list. This is the reason the patient could not be seen today. The chart was reviewed. The patient seemed to be stable. Full consult will be done tomorrow. MMODL / IJN: [id number] /
[2017-02-18 07:26] LABS: Glucose,Whole Blood 138 mg/dL (75-99)
[2017-02-18] MEDS: LISINOPRIL 10 MG TAB PO SCH (08:23)
[2017-02-18] MEDS: PANTOPRAZOLE 40 MG/10 ML VIAL IV SCH (08:23)
[2017-02-18] MEDS: GABAPENTIN 100 MG CAP PO SCH ×3 (08:24→20:56)
[2017-02-18] MEDS: SUCRALFATE 1 GM TAB PO SCH ×3 (08:24→20:56)
[2017-02-18] MEDS: METOPROLOL TARTRATE 25 MG TAB PO SCH ×2 (08:24→20:56)
[2017-02-18] MEDS: amLODIPine 10 MG TAB PO SCH (08:24)
[2017-02-18] MEDS: traMADol 50 MG TAB PO PRN ×3 (08:29→22:32)
--- NOTE | 2017-02-18 09:29 | CDI ---
In responding to this query, please exercise your independent professional judgment. The [facility] Coding Staff and Clinical Documentation Specialists appreciate your assistance in clarifying documentation, maintaining compliance with coding guidelines, accurately documenting patients condition and capturing severity of illness. The fact that a question is asked does not imply that any particular answer is desired or expected. Communication forms are a method of clarifying documentation and are not made part of the Legal Health Record. Thank you in advance for your clarification. Last Revision, July 2016 Dm Gomez [address] [place] [address] Documentation Clarification Form Date: 02/18/2017 9:17:00 AM From: Elisa Astorga RN, CDS Admit Date: 02/15/2017 12:06:00 PM Patient Name: Rigo Krueger Visit Number: [id number] Dr. Nimesh De Luna, 57 year old patient admitted for DKA. Patient has a history of Heart Failure with previous admission for "bilateral pleural effusion with subsequent evaluation showed a preserved LV function with Ejection Fraction around 50%" per ED note . History/Risk Factors: Heart Failure, DM1, RA, CKD 3, HTN Clinical Indicators: CXR: cardiomegaly, no acute pulmonary process, Admit VS: 96.8 104 16 203/95 94% "preserved LV function with Ejection Fraction around 50% " per ED note Treatment: Home doses: Lisinopril 10mg daily, Lopressor 25mg BID, Norvasc 5mg daily In your professional opinion, can you please clarify the acuity and type of CHF if known? Systolic Heart Failure: Compensated Chronic Diastolic Heart Failure Compensated Chronic Systolic Heart Failure Compensated Chronic Systolic and Diastolic Heart Failure Unable to determine Other, please specify Please document in your progress notes and discharge summary in order to capture severity of illness and risk of mortality. Include clinical findings that support your diagnosis. FYI: Press F11 to launch patient chart. Thank you. SENG
--- NOTE | 2017-02-18 11:10 | P.PN ---
Subjective 02/18/17- patient is seen and examined and evaluated today on the fourth floor. Upon examination the patient's resting up in bed on room air he denies any cough or congestion or shortness of breath at this time. Patient denies any nausea and vomiting today. States his appetite is stable. He is afebrile, no overnight events no further complaints. All labs are reports are reviewed. 02/17/17- This is a 57-year-old male patient who came into the hospital for abdominal pain nausea and vomiting. Apparently the patient had been having the nausea vomiting and diarrhea for the last 5 days. He denied any fever, chills or chest pain. The patient is known to be noncompliant with his diabetes mellitus treatment at home. Ultimately the patient was worked up in the emergency room and was admitted for DKA and gastric occult positive. The patient was seen by Dr. MOSHE Thornton for weekend coverage please refer to his notes. On examination the patient's resting up in bed on room air does complain of some mild nausea and his nurses getting his Zofran at this time. Denies any cough or congestion at this time. Patient did eat approximately 75% of his breakfast this morning. Patient does have a left external jugular peripheral IV. All labs and reports have been reviewed. No further complaints. Objective - Vital Signs Vital signs: Vital Signs Temp 98.0 F 02/18/17 07:00 Pulse 71 02/18/17 07:00 Resp 16 02/18/17 07:00 BP 127/73 02/18/17 07:00 Pulse Ox 98 02/18/17 07:00 Intake & Output 02/17/17 02/18/17 02/18/17 18:59 06:59 18:59 Intake Total 220 370 320 Output Total 1000 1800 Balance -780 -3140 320 Weight 68.4 kg 73 kg Intake: IV 220 120 0.9 120 20 Ampicillin-Sulbactam 1.5 100 100 gm In Sodium Chloride 0.9 % 50 ml @ 100 mls/hr IVPB Q6HR [facility] Rx#:[id number] Oral 250 320 Output: Urine 1000 1800 Other: Voiding Method Urinal Urinal # Voids 1 0 - Exam GENERAL EXAM: Alert, active, comfortable in no apparent distress. HEAD: Normocephalic. EYES: Normal reaction of pupils, equal size. NOSE: Clear with pink turbinates. THROAT: No erythema or exudates. NECK: No masses, no JVD. External jugular IV present. CHEST: No chest wall deformity. LUNGS: Equal air entry with no crackles, wheeze, rhonchi or dullness. CVS: S1 and S2 normal with no audible mumurs, regular rhythm. ABDOMEN: No hepatosplenomegaly, normal bowel sounds, no guarding or rigidity. EXTREMITIES: No edema noted, pedal pulses palpable. SKIN: No rashes CENTRAL NERVOUS SYSTEM: No focal deficits, tone is normal in all 4 extremities. - Labs CBC & Chem 7: 02/17/17 06:20 02/17/17 04:08 Labs: Abnormal Lab Results - Last 24 Hours (Table) 02/17/17 02/17/17 02/17/17 Range/Units 12:28 17:00 18:27 POC Glucose (mg/dL) 183 H 287 H 248 H (75-99) mg/dL 02/17/17 02/18/17 02/18/17 Range/Units 20:52 01:46 07:15 POC Glucose (mg/dL) 160 H 210 H 138 H (75-99) mg/dL Microbiology - Last 24 Hours (Table) 02/17/17 13:36 Urine Culture - Preliminary Urine,Clean Catch Assessment and Plan Plan: Assessment Diabetic ketoacidosis Gastric occult positive Possible diverticulosis or diverticulitis surgical on consult Acute on chronic renal failure Hyperkalemia Severe metabolic acidosis due to DKA Plan Medications have been reviewed and will be continued as ordered. All labs and reports have been reviewed. Surgical services has evaluated the patient and is recommending outpatient scope and has no plans for surgical intervention at this time. Patient is also being followed by nephrology and infectious disease. Continue with pulmonary hygiene, coughing and deep breathing exercises , and supportive care. Supplemental oxygen to maintain oxygen saturations of 92 % or better. Continue nebulizer treatments. GI and DVT prophylaxis. We will continue to monitor labs/results and adjust treatment as necessary. Further recommendations pending. I performed an examination of the patient and discussed their management with the nurse practitioner. I have reviewed the nurse practitioner's note and agree with the documented findings and plan of care.
[2017-02-18] MEDS: FOLIC ACID 1 MG TAB PO SCH (11:32)
[2017-02-18] MEDS: CALCIUM CARBONATE 500 MG CHEWABLE PO PRN (11:32)
[2017-02-18] MEDS: MULTIVITAMINS, THERA 1 EACH TAB PO SCH (11:32)
[2017-02-18 11:54] LABS: Glucose,Whole Blood 106 mg/dL (75-99)
[2017-02-18 12:10] LABS: Basophils % (A) 0 %; CH 30.7; CHCM 31.3; Eosinophils # (A) 0.1 k/uL (0-0.7); Eosinophils % (A) 2 %; HCT 37.8 % (39.0-53.0); HDW 2.64; Hypochromasia Slight; Luc % (Auto) 3; Lymphocytes # (A) 1.7 k/uL (1.0-4.8); Lymphocytes % (A) 48 %; MCH 31.2 pg (25.0-35.0); MCHC 31.7 g/dL (31.0-37.0); MCV 98.5 fL (80.0-100.0); Mean Platelet Volume 7.4; Monocytes # (A) 0.2 k/uL (0-1.0); Monocytes % (A) 6 %; Neutrophils # (A) 1.5 k/uL (1.3-7.7); Neutrophils % (A) 41 %; RBC 3.84 m/uL (4.30-5.90); RDW 13.6 % (11.5-15.5); WBC 3.6 k/uL (3.8-10.6); WBC (Perox) 3.82
[2017-02-18 12:30] LABS: ALT 33 U/L (21-72); AST 28 U/L (17-59); Alkaline Phosphatase 86 U/L (38-126); Anion Gap 7 mmol/L; Blood Urea Nitrogen 13 mg/dL (9-20); Calcium 9.2 mg/dL (8.4-10.2); Carbon Dioxide 26 mmol/L (22-30); Chloride 106 mmol/L (98-107); Glucose 108 mg/dL (74-99); Magnesium 1.8 mg/dL (1.6-2.3); Non-African American GFR(MDRD) >60 (>60 ml/min/1.73 sqM); Potassium 3.8 mmol/L (3.5-5.1); Sodium 139 mmol/L (137-145); Total Bilirubin 0.4 mg/dL (0.2-1.3); Total Protein 6.2 g/dL (6.3-8.2)
[2017-02-18] MEDS ORDERED: RX INFO: IV CONTRAST WAS GIVEN 1 EACH MISC MISCELLANE PRN (13:27)
--- NOTE | 2017-02-18 13:48 | P.PN ---
Subjective 57-year-old male sitting up on the edge of the bed. Continues to report having epigastric discomfort. There is been no further episodes of vomiting. Patient has remained afebrile. No further new events. Patient initially was admitted to the hospital with severe nausea vomiting with DKA symptoms. Gastric secretions positive for occult blood. It's noted that the patient has had a prior EGD on 12/02/[address] [facility] service at that time the EGD with biopsies showed linear erosions and ulcerations with exudate noted in the distal esophagus consistent with severe LA grade D reflux esophagitis, mild antral gastritis Objective - Vital Signs Vital signs: Vital Signs Temp 98.0 F 02/18/17 07:00 Pulse 71 02/18/17 07:00 Resp 16 02/18/17 07:00 BP 127/73 02/18/17 07:00 Pulse Ox 98 02/18/17 07:00 Intake & Output 02/17/17 02/18/17 02/18/17 18:59 06:59 18:59 Intake Total 220 370 320 Output Total 1000 1800 Balance -780 -1430 320 Weight 68.4 kg 73 kg Intake: IV 220 120 0.9 120 20 Ampicillin-Sulbactam 1.5 100 100 gm In Sodium Chloride 0.9 % 50 ml @ 100 mls/hr IVPB Q6HR [facility] Rx#:[id number] Oral 250 320 Output: Urine 1000 1800 Other: Voiding Method Urinal Urinal # Voids 1 0 - Exam Physical exam 57-year-old gentleman sitting up on the edge of the bed does not appear in acute distress continues to report having an epigastric discomfort with heartburn no emesis Lungs essentially clear with adequate air movement on room air Heart S1-S2 audible and regular Abdomen soft nontender no reports the nausea vomiting bowel tones present reports epigastric discomfort persist Extremities no edema noted - Labs CBC & Chem 7: 02/18/17 11:55 02/18/17 11:55 Labs: Abnormal Lab Results - Last 24 Hours (Table) 02/17/17 02/17/17 02/17/17 Range/Units 17:00 18:27 20:52 WBC (3.8-10.6) k/uL RBC (4.30-5.90) m/uL Hgb (13.0-17.5) gm/dL Hct (39.0-53.0) % Glucose (74-99) mg/dL POC Glucose (mg/dL) 287 H 248 H 160 H (75-99) mg/dL Phosphorus (2.5-4.5) mg/dL Total Protein (6.3-8.2) g/dL Albumin (3.5-5.0) g/dL 02/18/17 02/18/17 02/18/17 Range/Units 01:46 07:15 11:41 WBC (3.8-10.6) k/uL RBC (4.30-5.90) m/uL Hgb (13.0-17.5) gm/dL Hct (39.0-53.0) % Glucose (74-99) mg/dL POC Glucose (mg/dL) 210 H 138 H 106 H (75-99) mg/dL Phosphorus (2.5-4.5) mg/dL Total Protein (6.3-8.2) g/dL Albumin (3.5-5.0) g/dL 02/18/17 02/18/17 Range/Units 11:55 11:55 WBC 3.6 L (3.8-10.6) k/uL RBC 3.84 L (4.30-5.90) m/uL Hgb 12.0 L (13.0-17.5) gm/dL Hct 37.8 L (39.0-53.0) % Glucose 108 H (74-99) mg/dL POC Glucose (mg/dL) (75-99) mg/dL Phosphorus 2.0 L (2.5-4.5) mg/dL Total Protein 6.2 L (6.3-8.2) g/dL Albumin 3.2 L (3.5-5.0) g/dL Microbiology - Last 24 Hours (Table) 02/17/17 13:36 Urine Culture - Preliminary Urine,Clean Catch Assessment and Plan Plan: Impression Present on admission diabetic ketoacidosis Gastric occult positive Severe metabolic acidosis due to acute DKA Acute on chronic renal failure Chronic gastroparesis Present on admission nausea vomiting dehydration secondary to gastroparesis Status post December 06 2016 EGD with biopsies for persistent nausea vomiting showed linear erosion, ulcerations with exudate noted in the distal esophagus consistent with severe LA grade D reflux esophagitis with mild antral gastritis Plan Nothing by mouth after midnight patient will be scheduled for an EGD per Dr. cardenas Continue protonix 40 IV daily Further recommendations pending findings from EGD Defer to admitting service and other consultants of management of other medical issues The above impression and plan of care have been discussed and directed by signing physician. Bri Melendez nurse practitioner acting as scribe for signing physician.
[2017-02-18] MEDS: IOHEXOL 350 MG/ML 25 ML BOTTLE (ORAL USE) PO PRN ×2 (14:19→15:39)
--- NOTE | 2017-02-18 16:26 | CT ---
EXAMINATION TYPE: CT abdomen pelvis wo con DATE OF EXAM: 02/18/2017 HISTORY: abdominal pain, vomiting CT DLP: 630 mGycm. Automated Exposure Control for Dose Reduction was Utilized. TECHNIQUE: CT scan of the abdomen and pelvis is performed without oral or IV contrast. COMPARISON: CT abdomen and pelvis June 05, 2015 FINDINGS: Within the limitations of a non-contrast study, the following observations are made. LUNG BASES: There is patchy bibasilar scarring and/or atelectasis. No cardiomegaly is redemonstrated. LIVER/GB: There is oval lesion right hepatic dome redemonstrated measuring 5.2 x 3.3 cm fairly stable in size from prior study. On prior exam there was background of diffuse fatty infiltration of liver which is significantly improved. Lesion is now hypodense to remainder of liver. This is felt hemangio ma on older postcontrast studies. Smaller 1.2 cm hypodense lesion right hepatic lobe on axial image 1 8 is stable in size from prior PANCREAS: No significant abnormality is seen. SPLEEN: No significant abnormality is seen. ADRENALS: No significant abnormality is seen. KIDNEYS: There is nonspecific perinephric fat stranding bilaterally may be product of chronic medical renal disease. No renal stones or hydronephrosis is clearly seen bilaterally. Bladder wall is mild t o moderately concentrically thickened. Findings likely product of outlet obstruction related to enlar ged prostate gland. BOWEL: Oral contrast does not reach colonic level making evaluation slightly suboptimal. There is how ever no suspicious small or large bowel dilatation seen. Slight redundancy of the sigmoid colon. Mild wall thickening of right-sided small bowel loops is felt present. Correlate for enteritis. GENITAL ORGANS: Prostate gland is enlarged in size bulging on bladder base, underlying BPH is suspect ed. Clinical correlation is advised. LYMPH NODES: No greater than 1cm abdominal or pelvic lymph nodes are appreciated. OSSEOUS STRUCTURES: Spine is straightened on sagittal images there is posterior disc herniation L4-L5 level seen on sagittal image 30 effacing anterior thecal sac confirmed on axial image 55. OTHER: Vascular calcification of arterial vessels in the lower pelvis and bilateral thighs is noted i n smaller branching vessels. Suspect underlying diabetes. IMPRESSION: No bowel obstruction is seen. Possible right-sided enteritis, clinical correlation advise d. Interval improvement in diffuse fatty infiltration of liver noted.
[2017-02-18 17:19] LABS: Glucose,Whole Blood 206 mg/dL (75-99)
--- NOTE | 2017-02-18 20:21 | PN ---
PROGRESS NOTE Patient is seen for followup for hyperkalemia. He got one dose of Kayexalate yesterday. Repeat labs from today show serum potassium of 3.8, serum creatinine has been at 1.0. Initially, it was at 1.46. The patient is still complaining of abdominal pain. PHYSICAL EXAMINATION: Blood pressure is 110/54, heart rate 77 per minute. Patient is afebrile. Examination shows a very soft abdomen. No significant tenderness noted. No rebound tenderness. Examination of lower extremities showed no evidence of edema. LABORATORY DATA: Labs show sodium 139, potassium 3.8, chloride 106, hemoglobin 12.0 g/dL. ASSESSMENT: 1. Hyperkalemia initially associated with acidosis, hyperglycemia, diabetic ketoacidosis, currently improved. 2. Diabetic ketoacidosis, now resolved. 3. Abdominal pain, status post CT of the abdomen which shows possible right-sided enteritis with fatty liver, otherwise no other significant findings. PLAN: No changes from Nephrology standpoint. Control blood sugars. May continue with the MARI inhibitors for now. MMODL / IJN: [id number] /
--- NOTE | 2017-02-18 20:36 | CONS ---
CONSULTATION DATE OF SERVICE: 02/18/2017. REASON FOR CONSULTATION: Leukocytosis and infection. HISTORY OF PRESENT ILLNESS: The patient is a 57-year-old male who presented to the ER at [facility] 02/15/2017 with chief complaint of nausea and vomiting. The patient's symptom has been going on for a day or two prior to presentation to the hospital. He has been complaining of some vague abdominal pain, mostly in the right upper and lower quadrant areas, described to more colicky in nature. It is 4 to 5/10 with no radiation. With these symptoms, the patient was evaluated by the ER physician. On arrival to the ER the patient did not have any fever, however the patient did have a elevated white count of 14.3. The patient did have a urine culture, but no blood culture done. He was started on Unasyn and admitted to the hospital. He was treated for the diabetic ketoacidosis as on patient's presentation his blood sugars were in the 520s. I was asked to see the patient because of concern for possible infection. The patient denies having any chest pain, shortness of breath, or cough. No urinary symptoms of any burning or frequency. The patient did have a chest x-ray on admission, which shows mild cardiomegaly but no infiltrate. REVIEW OF SYSTEMS: Constitutional: Positive for weakness and fever. ENT: No complaint. Respiratory: No complaint. Cardiovascular: No complaint. Genitourinary: No complaint. Musculoskeletal: No complaints. Psychological: No complaint. Endocrine: No complaint. Neurologic: No complaint. PAST MEDICAL HISTORY: Significant for hypertension, pneumonia, renal insufficiency, rheumatoid arthritis, diabetes mellitus, heart failure, previous history of sepsis secondary to right midlung pneumonia. PAST SURGICAL HISTORY: Tonsillectomy, adenoidectomy, colonoscopy, EGD, left great toe amputation. SOCIAL HISTORY: No history of smoking, drinking. FAMILY HISTORY: Father with history of diabetes and hypertension. Mother with some psychiatric issues. ALLERGIES: No known drug allergies. MEDICATIONS: 1. Tylenol. 2. Norvasc. 3. Unasyn. 4. TUMS. 5. Folic acid. 6. Neurontin. 7. Lantus. 8. Humalog. 9. Zestril. 10.Lopressor. 11.Theragran. 12.Narcan. 13.Zofran. 14.Protonix. EXAMINATION: Blood pressure is 127/73 with a pulse of 71, temperature 98, he is 98% on room air. GENERAL DESCRIPTION: Middle-aged male, lying in bed, in no distress. No tachypnea or accessory muscle of respiration use. HEENT: Shows no pallor or scleral icterus. Oral mucosa dry. NECK: Trachea central. No thyromegaly. LUNGS: Unlabored breathing. Clear to auscultation anteriorly. HEART: S1, S2. Regular rate. ABDOMEN: Soft. Mild tenderness in the right upper quadrant area. No guarding or rigidity. EXTREMITIES: No edema of the feet. SKIN: No masses or rashes palpable. NEUROLOGIC: The patient is awake, alert, oriented x3. PSYCHIATRY: Mood and affect normal. LABS: Hemoglobin is 12, white count of 3.6, BUN of 13, creatinine 1.01. Electrolytes have been normal. Liver enzymes are normal. Urine has been negative. No blood cultures done during this admission. Urine culture negative. Chest x-ray were negative. DIAGNOSTIC IMPRESSION AND PLAN: Patient admitted to the hospital with nausea, vomiting, diarrhea, more likely to related to underlying diabetic ketoacidosis. With elevated white count could be more related to the DKA, however, the patient has been complaining of pain in abdominal area and was noted to have tenderness in the right lower quadrant area and underlying abdominal pain etiology cannot be entirely excluded. PLAN: 1. We will obtain a CT abdominal pelvis with oral contrast only. 2. We will keep the patient on Unasyn while waiting for the culture to finalize. 3. Depending upon the clinical response as well as the CT report, will adjust antibiotic further if needed. Thank you for this consultation. Will follow this patient with you. MMODL / IJN: [id number] /
[2017-02-18] MEDS: traZODone HCL 100 MG TAB PO SCH (20:56)
[2017-02-18] MEDS ORDERED: INSULIN GLARGINE 100 UNIT/ML 10 ML VIAL SQ SCH (21:00)
[2017-02-18 21:16] LABS: Glucose,Whole Blood 146 mg/dL (75-99)
--- NOTE | 2017-02-18 23:27 | PN ---
PROGRESS NOTE This patient is a 57-year-old black male admitted with diabetic ketoacidosis, scheduled for EGD in the morning due to persistent nausea stomach. Vital signs are stable. He is afebrile. CARDIOVASCULAR: S1, S2. LUNGS: Transmitted upper airway sounds. HEMATOLOGICAL: Negative Homans. ASSESSMENT: 1. Diabetic ketoacidosis. 2. Gastritis. 3. Gastroparesis. 4. Dehydration. 5. Hyperkalemia. 6. Mild to moderate protein-calorie malnutrition. The patient is doing better. He has stopped his anion gap. His hemoglobin is at 12, white count is 3.6. His sugars are mid 100s. Except for EGD in the morning, possible discharge home. He has mild to moderate protein-calorie malnutrition also. MMODL / IJN: [id number] /
[2017-02-19 02:27] LABS: Glucose,Whole Blood 214 mg/dL (75-99)
[2017-02-19] MEDS: INSULIN LISPRO (humaLOG) 300 UNIT/3 ML VIAL SQ SCH ×5 (02:31→13:17)
[2017-02-19] MEDS: AMPICILLIN-SULBACTAM 1.5 GM in SODIUM CHLORIDE 0.9% 50 ML IVPB SCH ×2 (05:13→12:20)
[2017-02-19 07:40] LABS: Glucose,Whole Blood 76 mg/dL (75-99)
[2017-02-19] MEDS: METOPROLOL TARTRATE 25 MG TAB PO SCH (08:06)
[2017-02-19] MEDS: PANTOPRAZOLE 40 MG/10 ML VIAL IV SCH (08:08)
[2017-02-19 08:22] LABS: Glucose,Whole Blood 69 mg/dL (75-99)
[2017-02-19] MEDS ORDERED: DEXTROSE 50%-WATER 50 ML SYRINGE IVP STA (08:26)
[2017-02-19 08:28] VITALS: BMI 25.5
[2017-02-19] MEDS ORDERED: DEXTROSE 10 % IN WATER 250 ML IV STA (08:32)
[2017-02-19 08:50] LABS: Glucose,Whole Blood 104 mg/dL (75-99)
[2017-02-19 08:55] LABS: Anion Gap 8 mmol/L; Blood Urea Nitrogen 17 mg/dL (9-20); Calcium 9.4 mg/dL (8.4-10.2); Carbon Dioxide 22 mmol/L (22-30); Chloride 110 mmol/L (98-107); Glucose 73 mg/dL (74-99); Magnesium 1.8 mg/dL (1.6-2.3); Non-African American GFR(MDRD) >60 (>60 ml/min/1.73 sqM); Phosphorous 3.5 mg/dL (2.5-4.5); Sodium 140 mmol/L (137-145)
[2017-02-19 09:06] LABS: Potassium 5.8 mmol/L (3.5-5.1)
[2017-02-19 09:33] LABS: Basophils % (A) 1 %; CH 31.9; CHCM 33.3; Eosinophils # (A) 0.3 k/uL (0-0.7); Eosinophils % (A) 5 %; HCT 40.5 % (39.0-53.0); HDW 2.71; HGB 13.1 gm/dL (13.0-17.5); Luc # (Auto) 0.14; Luc % (Auto) 3; Lymphocytes # (A) 3.2 k/uL (1.0-4.8); Lymphocytes % (A) 59 %; MCH 31.1 pg (25.0-35.0); MCHC 32.3 g/dL (31.0-37.0); MCV 96.3 fL (80.0-100.0); Mean Platelet Volume 9.7; Monocytes # (A) 0.3 k/uL (0-1.0); Monocytes % (A) 6 %; Neutrophils # (A) 1.4 k/uL (1.3-7.7); Neutrophils % (A) 27 %; RBC 4.21 m/uL (4.30-5.90); RDW 14.3 % (11.5-15.5); WBC 5.4 k/uL (3.8-10.6); WBC (Perox) 5.27
[2017-02-19 09:52] LABS: Manual Review Performed
--- NOTE | 2017-02-19 10:37 | P.PN ---
Subjective Progress Note Date: 02/19/17 02/19/17- patient seen and examined and evaluated today on the fourth floor. Upon examination patient's resting up in bed on room air he denies any cough congestion. Does continue to have some shortness breath with exertion. He denies any nausea or vomiting today. The patient is being prepped to go for an EGD today with surgical services. He is afebrile, no overnight events. No further complaints. All labs and reports have been reviewed. 02/18/17- patient is seen and examined and evaluated today on the fourth floor. Upon examination the patient's resting up in bed on room air he denies any cough or congestion or shortness of breath at this time. Patient denies any nausea and vomiting today. States his appetite is stable. He is afebrile, no overnight events no further complaints. All labs are reports are reviewed. 02/17/17- This is a 57-year-old male patient who came into the hospital for abdominal pain nausea and vomiting. Apparently the patient had been having the nausea vomiting and diarrhea for the last 5 days. He denied any fever, chills or chest pain. The patient is known to be noncompliant with his diabetes mellitus treatment at home. Ultimately the patient was worked up in the emergency room and was admitted for DKA and gastric occult positive. The patient was seen by Dr. MOSHE Thornton for weekend coverage please refer to his notes. On examination the patient's resting up in bed on room air does complain of some mild nausea and his nurses getting his Zofran at this time. Denies any cough or congestion at this time. Patient did eat approximately 75% of his breakfast this morning. Patient does have a left external jugular peripheral IV. All labs and reports have been reviewed. No further complaints. Objective - Vital Signs Vital signs: Vital Signs Temp 96.9 F L 02/19/17 07:00 Pulse 53 L 02/19/17 07:00 Resp 16 02/19/17 07:00 BP 147/85 02/19/17 07:00 Pulse Ox 100 02/19/17 07:00 Intake & Output 02/18/17 02/19/17 02/19/17 18:59 06:59 18:59 Intake Total 520 Output Total 850 Balance 520 -850 Weight 78.5 kg 78.5 kg Intake: Oral 520 Output: Urine 850 Other: Voiding Method Toilet # Voids 2 1 - Exam GENERAL EXAM: Alert, active, comfortable in no apparent distress. HEAD: Normocephalic. EYES: Normal reaction of pupils, equal size. NOSE: Clear with pink turbinates. THROAT: No erythema or exudates. NECK: No masses, no JVD. External jugular IV present. CHEST: No chest wall deformity. LUNGS: Equal air entry with no crackles, wheeze, rhonchi or dullness. CVS: S1 and S2 normal with no audible mumurs, regular rhythm. ABDOMEN: No hepatosplenomegaly, normal bowel sounds, no guarding or rigidity. EXTREMITIES: No edema noted, pedal pulses palpable. SKIN: No rashes CENTRAL NERVOUS SYSTEM: No focal deficits, tone is normal in all 4 extremities. - Labs CBC & Chem 7: 02/19/17 08:02 02/19/17 08:02 Labs: Abnormal Lab Results - Last 24 Hours (Table) 02/18/17 02/18/17 02/18/17 Range/Units 11:41 11:55 11:55 WBC 3.6 L (3.8-10.6) k/uL RBC 3.84 L (4.30-5.90) m/uL Hgb 12.0 L (13.0-17.5) gm/dL Hct 37.8 L (39.0-53.0) % Potassium (3.5-5.1) mmol/L Chloride (98-107) mmol/L Glucose 108 H (74-99) mg/dL POC Glucose (mg/dL) 106 H (75-99) mg/dL Phosphorus 2.0 L (2.5-4.5) mg/dL Total Protein 6.2 L (6.3-8.2) g/dL Albumin 3.2 L (3.5-5.0) g/dL 02/18/17 02/18/17 02/19/17 Range/Units 17:16 21:08 02:25 WBC (3.8-10.6) k/uL RBC (4.30-5.90) m/uL Hgb (13.0-17.5) gm/dL Hct (39.0-53.0) % Potassium (3.5-5.1) mmol/L Chloride (98-107) mmol/L Glucose (74-99) mg/dL POC Glucose (mg/dL) 206 H 146 H 214 H (75-99) mg/dL Phosphorus (2.5-4.5) mg/dL Total Protein (6.3-8.2) g/dL Albumin (3.5-5.0) g/dL 02/19/17 02/19/17 02/19/17 Range/Units 08:02 08:02 08:20 WBC (3.8-10.6) k/uL RBC 4.21 L (4.30-5.90) m/uL Hgb (13.0-17.5) gm/dL Hct (39.0-53.0) % Potassium 5.8 H (3.5-5.1) mmol/L Chloride 110 H (98-107) mmol/L Glucose 73 L (74-99) mg/dL POC Glucose (mg/dL) 69 L (75-99) mg/dL Phosphorus (2.5-4.5) mg/dL Total Protein (6.3-8.2) g/dL Albumin (3.5-5.0) g/dL 02/19/17 Range/Units 08:48 WBC (3.8-10.6) k/uL RBC (4.30-5.90) m/uL Hgb (13.0-17.5) gm/dL Hct (39.0-53.0) % Potassium (3.5-5.1) mmol/L Chloride (98-107) mmol/L Glucose (74-99) mg/dL POC Glucose (mg/dL) 104 H (75-99) mg/dL Phosphorus (2.5-4.5) mg/dL Total Protein (6.3-8.2) g/dL Albumin (3.5-5.0) g/dL Microbiology - Last 24 Hours (Table) 02/17/17 13:36 Urine Culture - Final Urine,Clean Catch Assessment and Plan Plan: Assessment Diabetic ketoacidosis Gastric occult positive Possible diverticulosis or diverticulitis surgical on consult Acute on chronic renal failure Hyperkalemia Severe metabolic acidosis due to DKA Plan Medications have been reviewed and will be continued as ordered. All labs and reports have been reviewed. Patient is undergoing an EGD with surgical services today. Patient is also being followed by nephrology and infectious disease. Continue with pulmonary hygiene, coughing and deep breathing exercises , and supportive care. Supplemental oxygen to maintain oxygen saturations of 92 % or better. Continue nebulizer treatments. GI and DVT prophylaxis. We will continue to monitor labs/results and adjust treatment as necessary. Further recommendations pending. I performed an examination of the patient and discussed their management with the nurse practitioner. I have reviewed the nurse practitioner's note and agree with the documented findings and plan of care.
[2017-02-19] MEDS ORDERED: LACTATED RINGERS 1,000 ML IV ONE (10:49)
[2017-02-19] MEDS: GABAPENTIN 100 MG CAP PO SCH (10:54)
[2017-02-19] MEDS: SUCRALFATE 1 GM TAB PO SCH (10:54)
[2017-02-19] MEDS ORDERED: LIDOCAINE 1% INJ 10MG/ML (20 ML MDV) ONE (11:30)
[2017-02-19] MEDS ORDERED: PROPOFOL 10 MG/ML 20 ML VIAL IV ONE (11:30)
--- NOTE | 2017-02-19 11:48 | P.OP ---
Date of Procedure: 02/19/17 Preoperative Diagnosis: epigastric pain Postoperative Diagnosis: mild antral gastritis Procedure(s) Performed: EGD Anesthesia: MAC Surgeon: Calos Varela Pathology: other (antrum) Condition: stable Disposition: PACU Description of Procedure: the patient's placed on the endoscopy table in the lateral position. He received IV sedation. The gastroscope placed oropharynx and passed into the esophagus and stomach. Scope was then placed through the pylorus. The first and second portion of duodenum appeared normal. Scope was then brought back the antrum and this appeared mildly inflamed. A biopsies performed. The scope was then retroflexed and the remainder stomach appeared normal. The GE junction was at 40 cms. The distal esophagus appeared normal. The proximal esophagus appeared normal. Scope was withdrawn for patient.
[2017-02-19 12:13] LABS: Glucose,Whole Blood 124 mg/dL (75-99)
[2017-02-19] MEDS: amLODIPine 10 MG TAB PO SCH (12:20)
[2017-02-19] MEDS: FOLIC ACID 1 MG TAB PO SCH (12:21)
[2017-02-19] MEDS: MULTIVITAMINS, THERA 1 EACH TAB PO SCH (12:21)
[2017-02-19] MEDS: LISINOPRIL 10 MG TAB PO SCH (12:21)
[2017-02-19] MEDS: traMADol 50 MG TAB PO PRN (12:24)
--- NOTE | 2017-02-19 14:37 | PN ---
PROGRESS NOTE DATE OF SERVICE: 02/19/2017 REASON FOR FOLLOWUP: Leukocytosis and enteritis. INTERVAL HISTORY: The patient is afebrile. He still has some abdominal pain and crampy nausea, but no vomiting and did not have any diarrhea, breathing comfortably. No chest pain or cough. EXAMINATION: Blood pressure is 147/95 with a pulse of 53 temperature 96.9. He is 100% on room air. GENERAL DESCRIPTION: A middle-aged male lying in bed, in no distress. RESPIRATORY SYSTEM: Unlabored breathing. Clear to auscultation anteriorly. HEART: S1, S2. Regular rate and rhythm. ABDOMEN: Soft. No tenderness. LABS: Hemoglobin is 13.1, white count 5.4 with a BUN of 17, creatinine 1.0. So far, urine culture is negative. DIAGNOSTIC IMPRESSION AND PLAN: Patient with leukocytosis on admission to hospital with DKA. The white count could be related to the DKA. He did have CT of abdomen and pelvis that did not show any inflammation with possible enteritis recommend no antibiotic on discharge, especially with his symptoms of nausea and vomiting and continue to monitor closely off antibiotic therapy. MMODL / IJN: [id number] /
[2017-02-19 14:59] VITALS: BP 150/76; PULSE 63; RESP 18; TEMP 97.4
[2017-02-19] MEDS ORDERED: INSULIN GLARGINE 100 UNIT/ML 10 ML VIAL SQ SCH (21:00)
--- NOTE | 2017-02-20 15:54 | CDI ---
In responding to this query, please exercise your independent professional judgment. The [facility] Coding Staff and Clinical Documentation Specialists appreciate your assistance in clarifying documentation, maintaining compliance with coding guidelines, accurately documenting patients condition and capturing severity of illness. The fact that a question is asked does not imply that any particular answer is desired or expected. Communication forms are a method of clarifying documentation and are not made part of the Legal Health Record. Thank you in advance for your clarification. Last Revision, July 2016 Dm [place] [address] [place] [address] Documentation Clarification Form Date: 02/18/2017 9:17:00 AM Resubmitted 02/20/2017 From: Elisa Astorga RN, CDS Admit Date: 02/15/2017 12:06:00 PM Patient Name: Rigo Krueger Visit Number: [id number] Discharge Date: 02/19/2017 Dr. Nimesh De Luna 57 year old patient admitted for DKA. Patient has a history of Heart Failure with previous admission for "bilateral pleural effusion with subsequent evaluation showed a preserved LV function with Ejection Fraction around 50%" per ED note . History/Risk Factors: Heart Failure, DM1, RA, CKD 3, HTN Clinical Indicators: CXR: cardiomegaly, no acute pulmonary process, Admit VS: 96.8 104 16 203/95 94% "preserved LV function with Ejection Fraction around 50% " per ED note Treatment: Home doses: Lisinopril 10mg daily, Lopressor 25mg BID, Norvasc 5mg daily In your professional opinion, can you please clarify the acuity and type of CHF if known? Systolic Heart Failure: Compensated Chronic Diastolic Heart Failure Compensated Chronic Systolic Heart Failure Compensated Chronic Systolic and Diastolic Heart Failure Unable to determine Other, please specify Please document in your progress notes and discharge summary in order to capture severity of illness and risk of mortality. Include clinical findings that support your diagnosis. FYI: Press F11 to launch patient chart. Thank you. SENG
== END 2017-02-19 15:24 | disposition home or self-care (01) | DRG 420 ==
LOC: EC 08:22 → 6SEL 12:06 → 6ICU 20:47 → 4MS4W 02-17 22:37
PROVIDERS: ADMIT Family Medicine; ATTEND Family Medicine
PROC: 0DB68ZX Excision of Stomach, Via Natural or Artificial Opening Endoscopic, Diagnostic (ICD-10-PCS; principal; 2017-02-19 09:30)
DX: E10.10 Type 1 diabetes mellitus with ketoacidosis without coma (principal); E87.0 Hyperosmolality and hypernatremia; N17.9 Acute kidney failure, unspecified; E44.0 Moderate protein-calorie malnutrition; K31.84 Gastroparesis; I13.0 Hypertensive heart and chronic kidney disease with heart failure and stage 1 through stage 4 chronic kidney disease, or unspecified chronic kidney disease; I50.9 Heart failure, unspecified; E87.5 Hyperkalemia; E10.43 Type 1 diabetes mellitus with diabetic autonomic (poly)neuropathy; N18.3 Chronic kidney disease, stage 3 (moderate); E10.22 Type 1 diabetes mellitus with diabetic chronic kidney disease; E10.51 Type 1 diabetes mellitus with diabetic peripheral angiopathy without gangrene; K76.0 Fatty (change of) liver, not elsewhere classified; K52.9 Noninfective gastroenteritis and colitis, unspecified; K57.90 Diverticulosis of intestine, part unspecified, without perforation or abscess without bleeding; E10.319 Type 1 diabetes mellitus with unspecified diabetic retinopathy without macular edema; E86.0 Dehydration; K29.60 Other gastritis without bleeding; M06.9 Rheumatoid arthritis, unspecified; M19.90 Unspecified osteoarthritis, unspecified site; G89.29 Other chronic pain; K21.0 Gastro-esophageal reflux disease with esophagitis; L40.9 Psoriasis, unspecified; M54.9 Dorsalgia, unspecified; L30.9 Dermatitis, unspecified; Z79.4 Long term (current) use of insulin; Z79.899 Other long term (current) drug therapy; Z86.14 Personal history of Methicillin resistant Staphylococcus aureus infection; Z91.14 Patient's other noncompliance with medication regimen; Z89.412 Acquired absence of left great toe; Z89.422 Acquired absence of other left toe(s); Z82.49 Family history of ischemic heart disease and other diseases of the circulatory system
CPT/HCPCS: 36415; 43239; 71010; 74176; 80048; 80051; 80053; 81001; 82009; 82150; 82271; 82550; 82565; 82803; 82947; 83036; 83605; 83690; 83735; 84100; 84443; 84520; 85025; 85610; 85730; 87086; 88305; 88342; 96361; 96374; 96375; 99285

== ENCOUNTER 2017-02-19 19:19 | Emergency (ER) | payer OTHER ==
[2017-02-19 19:46] VITALS: RESP 18
--- NOTE | 2017-02-19 21:34 | ED ---
General Adult HPI - General Source: patient Mode of arrival: ambulatory Limitations: no limitations <Louise Jamison - Last Filed: 02/20/17 02:02> <Jeanette Vegas - Last Filed: 02/20/17 03:29> - General Chief complaint: Psychiatric Symptoms Stated complaint: Mental Health Time Seen by Provider: 02/19/17 20:23 - History of Present Illness Initial comments: Patient is a 57-year-old male with extensive past history who is very well- known to our emergency department due to his frequent readmissions. Patient was recently admitted to our hospital, he was discharged earlier today. Patient reports that after being discharged he had nowhere to go, he is currently homeless and he states that he felt overwhelmed by being discharged home. He states that he been thinking about killing himself by diving into the water. At that time he chose to come back to the emergency department for further evaluation. Patient complains of diffuse abdominal pain, he states this is been present for a number of years. He states is unchanged today. He states he has not eaten since being discharged. He declines to eat at this time. The pain is burning in his mid abdomen with diffuse radiation throughout his entire abdomen. He cannot provide further description of the pain. Denies any fevers, chills, nausea, vomiting, constipation, diarrhea. He does report that he is an alcoholic, however he has not had any alcohol he says in the past 3 weeks due to his frequent hospitalizations. He denies drinking any alcohol today. (Louise Jamison) - Related Data Home Medications Medication Instructions Recorded Confirmed Insulin Aspart [NovoLOG] See Protocol SQ ACHS 01/04/17 02/19/17 Insulin Glargine [Lantus] 25 unit SQ QAM 01/04/17 02/19/17 Multivitamins, Thera [Multivitamin 1 tab PO DAILY 01/04/17 02/19/17 (formulary)] Folic Acid 1 mg PO DAILY 01/13/17 02/19/17 Gabapentin [Neurontin] 100 mg PO TID 01/13/17 02/19/17 Ibuprofen [Motrin] 800 mg PO TID PRN 01/13/17 02/19/17 Lisinopril [Zestril] 10 mg PO DAILY 01/13/17 02/19/17 Metoprolol Tartrate [Lopressor] 25 mg PO BID 01/13/17 02/19/17 Sucralfate [Carafate] 1 gm PO TID 01/13/17 02/19/17 amLODIPine [Norvasc] 5 mg PO DAILY 01/13/17 02/19/17 traZODone HCL [Desyrel] 100 mg PO HS 01/13/17 02/19/17 INSULIN LISPRO (humaLOG) [humaLOG 5 units SQ AC-TID 02/16/17 02/19/17 (formulary)] Previous Rx's Medication Instructions Recorded Omeprazole [PriLOSEC] 20 mg PO AC-BRKFST #30 cap 01/07/17 traMADol HCl [Ultram] 50 mg PO Q6H PRN #60 tab 01/07/17 Allergies Allergy/AdvReac Type Severity Reaction Status Date / Time No Known Allergies Allergy Verified 02/19/17 21:47 Review of Systems ROS Other: All systems not noted in ROS Statement are negative. <Louise Jamison - Last Filed: 02/20/17 02:02> ROS Other: All systems not noted in ROS Statement are negative. <Jeanette Vegas - Last Filed: 02/20/17 03:29> ROS Statement: Those systems with pertinent positive or pertinent negative responses have been documented in the HPI. Past Medical History Past Medical History: Heart Failure, Diabetes Mellitus, Hypertension, Pneumonia , Renal Disease, Rheumatoid Arthritis (RA), Skin Disorder Additional Past Medical History / Comment(s): 10/20/16 thought sepsis 2ndary to R middle lobe pne, multiple admissions for dka Other hx: IDDM poorly controlled , diabetic gastroparesis, bilateral feet/hands peripheral neuropathy, blood behind both eyes, peptic ulcer disease/duodenal ulcer/gastritis with erosions, previous hospitalization for pulmonary edema and bilateral pleural effusion and subsequent evaluation showed a preserved LV function with an ejection fraction of around 50%, CKD stage III, normocytic chronic anemia, rheumatoid arthritis, DJD, chronic back pain, osteoarthritis-generalized, eczema, psoriasis, ear infections, hx of narcotic abuse, cocaine abuse and alcohol abuse. History of Any Multi-Drug Resistant Organisms: MRSA Date of last positivie culture/infection: 02/25/08 MDRO Source:: Neck Past Surgical History: Adenoidectomy, Tonsillectomy Additional Past Surgical History / Comment(s): colonoscopy 2009, EGD, lt great toe amp, and part of 2nd toe. Past Anesthesia/Blood Transfusion Reactions: No Reported Reaction Past Psychological History: No Psychological Hx Reported Smoking Status: Never smoker Past Alcohol Use History: Unable to Obtain Past Drug Use History: Cocaine, Marijuana, Opiates, Prescription Drug Abuse - Past Family History Father Family Medical History: Diabetes Mellitus, Hypertension Additional Family Medical History / Comment(s): father at the age of 82 yrs from diabetic complications. Mother Additional Family Medical History / Comment(s): pyschiatric issues. Mother is 78yrs old. <Louise Jamison - Last Filed: 02/20/17 02:02> General Exam Limitations: no limitations <Louise Jamison - Last Filed: 02/20/17 02:02> Medical Decision Making - Lab Data Result diagrams: 02/19/17 22:50 02/19/17 22:50 <Louise Jamison - Last Filed: 02/20/17 02:02> - Lab Data Result diagrams: 02/19/17 22:50 02/19/17 22:50 <Jeanette Vegas - Last Filed: 02/20/17 03:29> - Medical Decision Making Patient was seen and evaluated, history was obtained from the medical record as well as the patient Vital signs were reviewed [id number] glucose was greater than 400 DKA workup was ordered Patient was noted to be hyperglycemic but have no anion gap subcutaneous insulin was ordered for treatment of hyperglycemia Patient was evaluated by psychiatric social worker, she will discuss the patient's care with the psychiatrist on-call Patient care was signed out to Jeanette Vegas PA-C who will follow-up on psych' s recommendations (Louise Jamison) at this time patient is found to not be acceptable community psychiatric services. Dr. Khalil might. At this time patient's recent admission, patient will be discharged at this time. (Jeanette Vegas) - Lab Data Lab Results 02/19/17 02/19/17 02/19/17 Range/Units 21:02 21:02 22:10 WBC (3.8-10.6) k/uL RBC (4.30-5.90) m/uL Hgb (13.0-17.5) gm/dL Hct (39.0-53.0) % MCV (80.0-100.0) fL MCH (25.0-35.0) pg MCHC (31.0-37.0) g/dL RDW (11.5-15.5) % Plt Count (150-450) k/uL Neutrophils % % Lymphocytes % % Monocytes % % Eosinophils % % Basophils % % Neutrophils # (1.3-7.7) k/uL Lymphocytes # (1.0-4.8) k/uL Monocytes # (0-1.0) k/uL Eosinophils # (0-0.7) k/uL Basophils # (0-0.2) k/uL Sodium (137-145) mmol/L Potassium (3.5-5.1) mmol/L Chloride (98-107) mmol/L Carbon Dioxide (22-30) mmol/L Anion Gap mmol/L BUN (9-20) mg/dL Creatinine (0.66-1.25) mg/dL Est GFR (MDRD) Af Amer (>60 ml/min/1.73 sqM) Est GFR (MDRD) Non-Af (>60 ml/min/1.73 sqM) Glucose (74-99) mg/dL POC Glucose (mg/dL) 414 H (75-99) mg/dL POC Glu Research Pharmacist ID Narendra Saha Osmolality (280-301) mosm/kg Plasma Lactic Acid Eliazar (0.7-2.0) mmol/L Calcium (8.4-10.2) mg/dL Magnesium (1.6-2.3) mg/dL Total Bilirubin (0.2-1.3) mg/dL AST (17-59) U/L ALT (21-72) U/L Alkaline Phosphatase (38-126) U/L Total Protein (6.3-8.2) g/dL Albumin (3.5-5.0) g/dL Lipase (23-300) U/L Urine Color Light Yellow Urine Appearance Clear (Clear) Urine pH 6.0 (5.0-8.0) Ur Specific [place] 1.022 (1.001-1.035) Urine Protein Negative (Negative) Urine Glucose (UA) 4+ H (Negative) Urine Ketones 1+ H (Negative) Urine Blood Negative (Negative) Urine Nitrite Negative (Negative) Urine Bilirubin Negative (Negative) Urine Urobilinogen <2.0 (<2.0) mg/dL Ur Leukocyte Esterase Negative (Negative) Urine Opiates Screen Not Detected (NotDetected) Ur Oxycodone Screen Not Detected (NotDetected) Urine Methadone Screen Not Detected (NotDetected) Ur Propoxyphene Screen Not Detected (NotDetected) Ur Barbiturates Screen Not Detected (NotDetected) U Tricyclic Antidepress Not Detected (NotDetected) Ur Phencyclidine Scrn Not Detected (NotDetected) Ur Amphetamines Screen Not Detected (NotDetected) U Methamphetamines Scrn Not Detected (NotDetected) U Benzodiazepines Scrn Not Detected (NotDetected) Urine Cocaine Screen Not Detected (NotDetected) U Marijuana (THC) Screen Not Detected (NotDetected) Acetone, Qual (Negative) 02/19/17 02/19/17 02/19/17 Range/Units 22:50 22:50 22:50 WBC 4.8 (3.8-10.6) k/uL RBC 3.74 L (4.30-5.90) m/uL Hgb 11.6 L (13.0-17.5) gm/dL Hct 37.3 L (39.0-53.0) % MCV 99.6 (80.0-100.0) fL MCH 31.0 (25.0-35.0) pg MCHC 31.2 (31.0-37.0) g/dL RDW 14.5 (11.5-15.5) % Plt Count 247 (150-450) k/uL Neutrophils % 45 % Lymphocytes % 44 % Monocytes % 6 % Eosinophils % 3 % Basophils % 0 % Neutrophils # 2.2 (1.3-7.7) k/uL Lymphocytes # 2.1 (1.0-4.8) k/uL Monocytes # 0.3 (0-1.0) k/uL Eosinophils # 0.2 (0-0.7) k/uL Basophils # 0.0 (0-0.2) k/uL Sodium 132 L (137-145) mmol/L Potassium 4.1 (3.5-5.1) mmol/L Chloride 99 (98-107) mmol/L Carbon Dioxide 25 (22-30) mmol/L Anion Gap 8 mmol/L BUN 19 (9-20) mg/dL Creatinine 0.96 (0.66-1.25) mg/dL Est GFR (MDRD) Af Amer >60 (>60 ml/min/1.73 sqM) Est GFR (MDRD) Non-Af >60 (>60 ml/min/1.73 sqM) Glucose 407 H (74-99) mg/dL POC Glucose (mg/dL) (75-99) mg/dL POC Glu Research Pharmacist ID Osmolality 297 (280-301) mosm/kg Plasma Lactic Acid Eliazar 1.3 (0.7-2.0) mmol/L Calcium 9.3 (8.4-10.2) mg/dL Magnesium 1.5 L (1.6-2.3) mg/dL Total Bilirubin 0.3 (0.2-1.3) mg/dL AST 22 (17-59) U/L ALT 34 (21-72) U/L Alkaline Phosphatase 88 (38-126) U/L Total Protein 6.6 (6.3-8.2) g/dL Albumin 3.7 (3.5-5.0) g/dL Lipase 44 (23-300) U/L Urine Color Urine Appearance (Clear) Urine pH (5.0-8.0) Ur Specific [place] (1.001-1.035) Urine Protein (Negative) Urine Glucose (UA) (Negative) Urine Ketones (Negative) Urine Blood (Negative) Urine Nitrite (Negative) Urine Bilirubin (Negative) Urine Urobilinogen (<2.0) mg/dL Ur Leukocyte Esterase (Negative) Urine Opiates Screen (NotDetected) Ur Oxycodone Screen (NotDetected) Urine Methadone Screen (NotDetected) Ur Propoxyphene Screen (NotDetected) Ur Barbiturates Screen (NotDetected) U Tricyclic Antidepress (NotDetected) Ur Phencyclidine Scrn (NotDetected) Ur Amphetamines Screen (NotDetected) U Methamphetamines Scrn (NotDetected) U Benzodiazepines Scrn (NotDetected) Urine Cocaine Screen (NotDetected) U Marijuana (THC) Screen (NotDetected) Acetone, Qual Positive (Negative) 02/19/17 02/20/17 02/20/17 Range/Units 23:15 00:02 01:49 WBC (3.8-10.6) k/uL RBC (4.30-5.90) m/uL Hgb (13.0-17.5) gm/dL Hct (39.0-53.0) % MCV (80.0-100.0) fL MCH (25.0-35.0) pg MCHC (31.0-37.0) g/dL RDW (11.5-15.5) % Plt Count (150-450) k/uL Neutrophils % % Lymphocytes % % Monocytes % % Eosinophils % % Basophils % % Neutrophils # (1.3-7.7) k/uL Lymphocytes # (1.0-4.8) k/uL Monocytes # (0-1.0) k/uL Eosinophils # (0-0.7) k/uL Basophils # (0-0.2) k/uL Sodium (137-145) mmol/L Potassium (3.5-5.1) mmol/L Chloride (98-107) mmol/L Carbon Dioxide (22-30) mmol/L Anion Gap mmol/L BUN (9-20) mg/dL Creatinine (0.66-1.25) mg/dL Est GFR (MDRD) Af Amer (>60 ml/min/1.73 sqM) Est GFR (MDRD) Non-Af (>60 ml/min/1.73 sqM) Glucose (74-99) mg/dL POC Glucose (mg/dL) 370 H 336 H 277 H (75-99) mg/dL POC Glu Research Pharmacist Fortino Puckett Jason Wallison, Jennifer Osmolality (280-301) mosm/kg Plasma Lactic Acid Eliazar (0.7-2.0) mmol/L Calcium (8.4-10.2) mg/dL Magnesium (1.6-2.3) mg/dL Total Bilirubin (0.2-1.3) mg/dL AST (17-59) U/L ALT (21-72) U/L Alkaline Phosphatase (38-126) U/L Total Protein (6.3-8.2) g/dL Albumin (3.5-5.0) g/dL Lipase (23-300) U/L Urine Color Urine Appearance (Clear) Urine pH (5.0-8.0) Ur Specific [place] (1.001-1.035) Urine Protein (Negative) Urine Glucose (UA) (Negative) Urine Ketones (Negative) Urine Blood (Negative) Urine Nitrite (Negative) Urine Bilirubin (Negative) Urine Urobilinogen (<2.0) mg/dL Ur Leukocyte Esterase (Negative) Urine Opiates Screen (NotDetected) Ur Oxycodone Screen (NotDetected) Urine Methadone Screen (NotDetected) Ur Propoxyphene Screen (NotDetected) Ur Barbiturates Screen (NotDetected) U Tricyclic Antidepress (NotDetected) Ur Phencyclidine Scrn (NotDetected) Ur Amphetamines Screen (NotDetected) U Methamphetamines Scrn (NotDetected) U Benzodiazepines Scrn (NotDetected) Urine Cocaine Screen (NotDetected) U Marijuana (THC) Screen (NotDetected) Acetone, Qual (Negative) Disposition <Louise Jamison - Last Filed: 02/20/17 02:02> Time of Disposition: 03:28 <Jeanette Vegas - Last Filed: 02/20/17 03:29> Clinical Impression: Depression, Hyperglycemia Disposition: HOME SELF-CARE Condition: Good Instructions: Depression (ED) Additional Instructions: patient is a follow-up with her primary care provider. Increase her fluids. Return to the emergency department if any alarming signs or symptoms occur. Referrals: Nimesh De Luna MD [Primary Care Provider] - 1-2 days
[2017-02-19 21:57] LABS: Appearance,Urine Clear (Clear); Bilirubin,Urine Negative (Negative); Glucose,Urine (UA) 4+ (Negative); Ketones,Urine 1+ (Negative); Leukocyte Esterase,Urine Negative (Negative); Nitrite,Urine Negative (Negative); Protein,Urine Negative (Negative); Specific Gravity,Urine 1.022 (1.001-1.035); UA Billing (MACRO vs. MICRO) CHEM; Urobilinogen,Urine <2.0 mg/dL (<2.0)
[2017-02-19 22:25] LABS: Glucose,Whole Blood 414 mg/dL (75-99)
[2017-02-19] MEDS ORDERED: SODIUM CHLORIDE 0.9% 1,000 ML IV ONE (22:35)
[2017-02-19 23:02] LABS: Basophils % (A) 0 %; CH 31.7; Eosinophils # (A) 0.2 k/uL (0-0.7); Eosinophils % (A) 3 %; HCT 37.3 % (39.0-53.0); HDW 2.64; HGB 11.6 gm/dL (13.0-17.5); Luc # (Auto) 0.09; Luc % (Auto) 2; Lymphocytes # (A) 2.1 k/uL (1.0-4.8); Lymphocytes % (A) 44 %; MCHC 31.2 g/dL (31.0-37.0); MCV 99.6 fL (80.0-100.0); Mean Platelet Volume 8.5; Monocytes # (A) 0.3 k/uL (0-1.0); Monocytes % (A) 6 %; Neutrophils # (A) 2.2 k/uL (1.3-7.7); Neutrophils % (A) 45 %; RBC 3.74 m/uL (4.30-5.90); RDW 14.5 % (11.5-15.5); WBC 4.8 k/uL (3.8-10.6); WBC (Perox) 5.21
[2017-02-19 23:12] VITALS: TEMP 97.6
[2017-02-19 23:29] LABS: ALT 34 U/L (21-72); AST 22 U/L (17-59); Alkaline Phosphatase 88 U/L (38-126); Anion Gap 8 mmol/L; Blood Urea Nitrogen 19 mg/dL (9-20); Calcium 9.3 mg/dL (8.4-10.2); Carbon Dioxide 25 mmol/L (22-30); Chloride 99 mmol/L (98-107); Glucose 407 mg/dL (74-99); Magnesium 1.5 mg/dL (1.6-2.3); Non-African American GFR(MDRD) >60 (>60 ml/min/1.73 sqM); Potassium 4.1 mmol/L (3.5-5.1); Sodium 132 mmol/L (137-145); Total Bilirubin 0.3 mg/dL (0.2-1.3); Total Protein 6.6 g/dL (6.3-8.2)
[2017-02-19 23:31] LABS: Glucose,Whole Blood 370 mg/dL (75-99)
[2017-02-20 00:04] VITALS: BP 157/85; PULSE 74
[2017-02-20] MEDS ORDERED: INSULIN REGULAR 100 UNIT/ML VIAL SQ ONE (00:04)
[2017-02-20] MEDS ORDERED: MAGNESIUM OXIDE 400 MG TAB PO STA (00:05)
[2017-02-20 00:06] LABS: Glucose,Whole Blood 336 mg/dL (75-99)
[2017-02-20 01:52] LABS: Glucose,Whole Blood 277 mg/dL (75-99)
[2017-02-20] MEDS ORDERED: MAG HYDROX/AL HYDROX/SIMETH 30 ML CUP PO STA (02:18)
== END 2017-02-20 03:43 | disposition home or self-care (01) ==
LOC: EC 19:19
DX: F32.9 Major depressive disorder, single episode, unspecified (principal); R10.84 Generalized abdominal pain; E11.65 Type 2 diabetes mellitus with hyperglycemia; I50.9 Heart failure, unspecified; I11.0 Hypertensive heart disease with heart failure; M06.9 Rheumatoid arthritis, unspecified; Z79.4 Long term (current) use of insulin; Z79.899 Other long term (current) drug therapy
CPT/HCPCS: 36415; 80053; 80306; 81003; 82009; 82075; 83605; 83690; 83735; 83930; 85025; 99284

== ENCOUNTER 2017-04-03 17:38 | Emergency (ER) | payer OTHER ==
[2017-04-03 17:47] VITALS: RESP 18
[2017-04-03] MEDS ORDERED: DEXTROSE 50%-WATER 50 ML SYRINGE IVP STA (17:52)
[2017-04-03 18:10] LABS: Glucose,Whole Blood 94 mg/dL (75-99)
--- NOTE | 2017-04-03 18:49 | ED ---
Recheck HPI - General Chief Complaint: Recheck/Abnormal Lab/Rx Stated Complaint: Altered Mental Status Time Seen by Provider: 04/03/17 17:38 Source: patient, RN notes reviewed Mode of arrival: wheelchair Limitations: no limitations - History of Present Illness Initial Comments: This is a 57-year-old male history diabetes who was found in our cafeteria to be lethargic and less responsive than usual. He was brought to the emergency department found have a low blood glucose. No trauma is reported no fevers chills sweats nausea vomiting or other symptoms he does have chronic abdominal pain which she is dealing with. MD Complaint: other - Related Data Home Medications Medication Instructions Recorded Confirmed Insulin Aspart [NovoLOG See Protocol SQ ACHS 01/04/17 02/19/17 (formulary)] Insulin Glargine [Lantus] 25 unit SQ QAM 01/04/17 02/19/17 Multivitamins, Thera [Multivitamin 1 tab PO DAILY 01/04/17 02/19/17 (formulary)] Folic Acid 1 mg PO DAILY 01/13/17 02/19/17 Gabapentin [Neurontin] 100 mg PO TID 01/13/17 02/19/17 Ibuprofen [Motrin] 800 mg PO TID PRN 01/13/17 02/19/17 Lisinopril [Zestril] 10 mg PO DAILY 01/13/17 02/19/17 Metoprolol Tartrate [Lopressor] 25 mg PO BID 01/13/17 02/19/17 Sucralfate [Carafate] 1 gm PO TID 01/13/17 02/19/17 amLODIPine [Norvasc] 5 mg PO DAILY 01/13/17 02/19/17 traZODone HCL [Desyrel] 100 mg PO HS 01/13/17 02/19/17 INSULIN LISPRO (humaLOG) [humaLOG 5 units SQ AC-TID 02/16/17 02/19/17 (formulary)] Previous Rx's Medication Instructions Recorded Omeprazole [PriLOSEC] 20 mg PO AC-BRKFST #30 cap 01/07/17 traMADol HCl [Ultram] 50 mg PO Q6H PRN #60 tab 01/07/17 Allergies Allergy/AdvReac Type Severity Reaction Status Date / Time No Known Allergies Allergy Verified 02/19/17 21:47 Review of Systems ROS Statement: Those systems with pertinent positive or pertinent negative responses have been documented in the HPI. ROS Other: All systems not noted in ROS Statement are negative. Past Medical History Past Medical History: Heart Failure, Diabetes Mellitus, Hypertension, Pneumonia , Renal Disease, Rheumatoid Arthritis (RA), Skin Disorder Additional Past Medical History / Comment(s): 10/20/16 thought sepsis 2ndary to R middle lobe pne, multiple admissions for dka Other hx: IDDM poorly controlled , diabetic gastroparesis, bilateral feet/hands peripheral neuropathy, blood behind both eyes, peptic ulcer disease/duodenal ulcer/gastritis with erosions, previous hospitalization for pulmonary edema and bilateral pleural effusion and subsequent evaluation showed a preserved LV function with an ejection fraction of around 50%, CKD stage III, normocytic chronic anemia, rheumatoid arthritis, DJD, chronic back pain, osteoarthritis-generalized, eczema, psoriasis, ear infections, hx of narcotic abuse, cocaine abuse and alcohol abuse. History of Any Multi-Drug Resistant Organisms: MRSA Date of last positivie culture/infection: 02/25/08 MDRO Source:: Neck Past Surgical History: Adenoidectomy, Tonsillectomy Additional Past Surgical History / Comment(s): colonoscopy 2009, EGD, lt great toe amp, and part of 2nd toe. Past Anesthesia/Blood Transfusion Reactions: No Reported Reaction Past Psychological History: No Psychological Hx Reported Smoking Status: Never smoker Past Alcohol Use History: Unable to Obtain Past Drug Use History: Cocaine, Marijuana, Opiates, Prescription Drug Abuse - Past Family History Father Family Medical History: Diabetes Mellitus, Hypertension Additional Family Medical History / Comment(s): father at the age of 82 yrs from diabetic complications. Mother Additional Family Medical History / Comment(s): pyschiatric issues. Mother is 78yrs old. General Exam - General Exam Comments Initial Comments: Is a well-developed well-nourished awake alert oriented 3 male this is after he was given IV dextrose. Limitations: altered mental status General appearance: alert, in no apparent distress, lethargic (This is prior to the dextrose) Head exam: Present: atraumatic, normocephalic, normal inspection Eye exam: Present: normal appearance, PERRL, EOMI. Absent: scleral icterus, conjunctival injection, periorbital swelling ENT exam: Present: normal exam, mucous membranes moist Neck exam: Present: normal inspection. Absent: tenderness, meningismus, lymphadenopathy Respiratory exam: Present: normal lung sounds bilaterally. Absent: respiratory distress, wheezes, rales, rhonchi, stridor Cardiovascular Exam: Present: regular rate, normal rhythm, normal heart sounds. Absent: systolic murmur, diastolic murmur, rubs, gallop, clicks GI/Abdominal exam: Present: soft, normal bowel sounds. Absent: distended, tenderness, guarding, rebound, rigid Extremities exam: Present: normal inspection, full ROM, normal capillary refill. Absent: tenderness, pedal edema, joint swelling, calf tenderness Back exam: Present: normal inspection Neurological exam: Present: alert, oriented X3, CN II-XII intact Psychiatric exam: Present: normal affect, normal mood Skin exam: Present: warm, dry, intact, normal color. Absent: rash Course Vital Signs 04/03/17 17:44 Temperature 98.9 F Pulse Rate 98 Respiratory 18 Rate Blood Pressure 163/80 O2 Sat by Pulse 98 Oximetry Medical Decision Making - Medical Decision Making Reevaluation patient is awake alert oriented 3 in no distress his glucoses markedly improved he will be discharged - Lab Data Lab Results 04/03/17 Range/Units 18:09 POC Glucose (mg/dL) 94 (75-99) mg/dL POC Glu Supervisor Body Assembly ID Robyn Montano Disposition Clinical Impression: Hypoglycemia Disposition: HOME SELF-CARE Condition: Good Instructions: Hypoglycemia in a Person with Diabetes (ED) Referrals: Nimesh De Luna MD [Primary Care Provider] - 1-2 days
[2017-04-03 19:04] VITALS: BP 157/98; PULSE 101; TEMP 98
[2017-04-05 14:54] LABS: Glucose,Whole Blood 54 mg/dL (75-99)
== END 2017-04-03 19:04 | disposition home or self-care (01) ==
LOC: EC 17:38
DX: E11.649 Type 2 diabetes mellitus with hypoglycemia without coma (principal); R10.9 Unspecified abdominal pain; G89.29 Other chronic pain; E11.22 Type 2 diabetes mellitus with diabetic chronic kidney disease; I13.0 Hypertensive heart and chronic kidney disease with heart failure and stage 1 through stage 4 chronic kidney disease, or unspecified chronic kidney disease; N18.3 Chronic kidney disease, stage 3 (moderate); I50.9 Heart failure, unspecified; Z86.14 Personal history of Methicillin resistant Staphylococcus aureus infection; Z79.4 Long term (current) use of insulin; Z79.899 Other long term (current) drug therapy
CPT/HCPCS: 36415; 96374; 99284